=== PATIENT | male | born 1935 | race Caucasian/White ===

== ENCOUNTER 2017-12-01 05:44 | Inpatient (IN) | payer MEDICARE, OTHER ==
[~2017-12-01] VITALS: Ht 165.1 cm; Wt 86.5 kg
[2017-12-01] VITALS (7 sets, daily range): BP systolic 115–139; BP diastolic 57–81; PULSE 96–120; RESP 16–20; TEMP 97.6–98.1; O2SAT 95–97
[~2017-12-01 05:44] MED LIST: LEVO112T2 PO; PNEU13P IM; ZOSTINJ SQ
[2017-12-01] MEDS ORDERED: IOHEXOL 350 MG/ML 10 ML VIAL (for RAD DIAG) IVCONTRAST ONE (05:45)
[2017-12-01] MEDS ORDERED: SODIUM CHLOR 0.9% 1000 ML INJ 1,000 ML IV SCH (06:19)
[2017-12-01] MEDS ORDERED: ONDANSETRON HCL 4 MG/2 ML VIAL IVP ONE (06:30)
[2017-12-01] MEDS ORDERED: SODIUM CHLORIDE 0.9% FLUSH 10 ML FLUSH IV FLUSH PRN (06:30)
--- NOTE | 2017-12-01 06:33 | PD ---
HPI Chief Complaint: Abdominal Pain Time Seen by Provider: 05:56 Travel History International Travel<30 days: No Contact w/Intl Traveler<30days: No Traveled to known affect area: No History of Present Illness HPI 82-year-old male complains of constipation and trouble urinating. Patient states that she started having constipation since yesterday. Patient states that he uses Ex-Lax without much relief at home. Patient states that he had urinary frequency and little urine came out and at a time. Patient has history of BPH. Patient states that he has mild aching pain right upper quadrant abdomen for the past 3 days. Patient's states the patient has been jaundiced for the past 3 days. Patient states that he has nausea but no vomiting or diarrhea. Patient denies any history of gallbladder disease. Patient denies any history of hepatitis. Patient has history of hypothyroidism and kidney stone in the past. Patient status post abdominal hernia repair in the past. PFSH Past Medical History Diminished Hearing: No Kidney Stones: Yes Thyroid Disease: Yes (hypothyriodism) Tetanus Vaccination: < 5 Years Influenza Vaccination: No Past Surgical History Abdominal Surgery: Yes (3 hernia repairs) Social History Alcohol Use: No Tobacco Use: No Substance Use: No Allergies-Medications (Allergen,Severity, Reaction): Coded Allergies: No Known Allergies (Unverified Adverse Reaction, Unknown, 12/01/17) Reported Meds & Prescriptions Reported Meds & Active Scripts Active Levothyroxine (Levothyroxine Sodium) 112 Mcg Tab 112 Mcg PO DAILY Zostavax Inj (Zoster Vaccine Live) 0.65 Ml Inj 0.65 Ml SQ .ONCE Prevnar 13 Inj (Pneumoccal 13-Valent Conj Vacc) 0.5 Ml Inj 0.5 Ml IM .ONCE Review of Systems General / Constitutional: No: Fever Eyes: No: Visual changes HENT: No: Headaches Cardiovascular: No: Chest Pain or Discomfort Respiratory: No: Shortness of Breath Gastrointestinal: Positive: Abdominal Pain (does not go above the that night 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 SKIN: Focused skin assessment warm/dry. Patient is jaundiced HEAD: Normocephalic. EYES: Bilateral scleral icterus. No injection or drainage. NECK: Supple, trachea midline. No JVD or lymphadenopathy. CARDIOVASCULAR: Regular rate and rhythm without murmurs, gallops, or rubs. RESPIRATORY: Breath sounds equal bilaterally. No accessory muscle use. GASTROINTESTINAL: Abdomen soft, nondistended. Patient is mild tenderness on palpation right upper quadrant of the abdomen. No rebound tenderness. No mass MUSCULOSKELETAL: No cyanosis, or edema. BACK: Nontender without obvious deformity. No CVA tenderness. Neurologic exam normal. Data Data Last Documented VS Vital Signs Date Time Temp Pulse Resp B/P (MAP) Pulse Ox O2 Delivery O2 Flow Rate FiO2 12/01/17 05:47 97.6 120 20 135/81 (99) 96 Room Air Orders Orders Complete Blood Count With Diff (12/01/17 06:19) Comprehensive Metabolic Panel (12/01/17 06:19) Lipase (12/01/17 06:19) Prothrombin Time / Inr (Pt) (12/01/17 06:19) Act Partial Throm Time (Ptt) (12/01/17 06:19) Urinalysis - C+S If Indicated (12/01/17 06:19) Ct Abd/Pel W Iv Contrast(Rout) (12/01/17 06:19) Iv Access Insert/Monitor (12/01/17 06:19) Ecg Monitoring (12/01/17 06:19) Oximetry (12/01/17 06:19) Ondansetron Inj (Zofran Inj) (12/01/17 06:30) Sodium Chlor 0.9% 1000 Ml Inj (Ns 1000 M (12/01/17 06:19) Sodium Chloride 0.9% Flush (Ns Flush) (12/01/17 06:30) Electrocardiogram (12/01/17 06:19) MDM Medical Decision Making Medical Screen Exam Complete: Yes Emergency Medical Condition: Yes Differential Diagnosis Differential diagnosis including acute cholecystitis, hepatitis, constipation, urinary retention. Narrative Course 82-year-old male with right upper quadrant abdominal pain, jaundice, constipation, trouble urinating. Toby Figueroa MD Dec 01, 2017 06:33
[2017-12-01 06:42] LABS: AUTOMATED NEUTROPHIL # 14.1 TH/MM3 (1.8-7.7); BASOPHIL # 0.1 TH/MM3 (0-0.2); BASOPHIL % 0.3 % (0.0-2.0); EOSINOPHIL # 0.1 TH/MM3 (0-0.4); EOSINOPHIL % 0.3 % (0.0-4.0); HEMATOCRIT 43.4 % (39.0-51.0); HEMOGLOBIN 14.5 GM/DL (13.0-17.0); LYMPH % 7.9 % (9.0-44.0); LYMPHOCYTE # 1.6 TH/MM3 (1.0-4.8); MEAN CELL VOLUME 88.8 FL (80.0-100.0); MEAN CORPUSCULAR HEMOGLOBIN 29.7 PG (27.0-34.0); MEAN CORPUSCULAR HGB CONC 33.4 % (32.0-36.0); MEAN PLATELET VOLUME 11.2 FL (7.0-11.0); MONO % 20.5 % (0.0-8.0); MONOCYTE # 4.1 TH/MM3 (0-0.9); PLATELET COUNT 131 TH/MM3 (150-450); RED BLOOD COUNT 4.89 MIL/MM3 (4.50-5.90); RED CELL DISTRIBUTION WIDTH 17.5 % (11.6-17.2); WHITE BLOOD COUNT 19.8 TH/MM3 (4.0-11.0)
[2017-12-01 06:54] LABS: PROTHROMBIN TIME - PATIENT 9.7 SEC (9.8-11.6)
[2017-12-01 07:13] LABS: AMORPHOUS SEDIMENT, URINE MANY; BACTERIA, URINE FEW /hpf; BILIRUBIN, URINE MOD (NEG); BLOOD, URINE LARGE (NEG); GLUCOSE,URINE NEG (NEG); KETONE, URINE NEG (NEG); MUCUS URINE MANY /lpf (OCC); NITRITE,URINE NEG (NEG); PH, URINE 5.5 (5.0-8.5); SQUAMOUS EPITHELIAL CELL URINE 1 /hpf (0-5); URINE COLOR DARK-BROWN (YELLW/STRAW); URINE LEUKOCYTE ESTERASE TRACE (NEG); WHITE BLOOD CELL CLUMPS OCC
[2017-12-01 07:15] LABS: ALT (GPT) 77 U/L (12-78); AST (GOT) 59 U/L (15-37); BICARBONATE 28.3 MEQ/L (21.0-32.0); BLOOD UREA NITROGEN 16 MG/DL (7-18); CALCIUM 9.8 MG/DL (8.5-10.1); CHLORIDE 102 MEQ/L (98-107); CREATININE 1.14 MG/DL (0.60-1.30); GLOMERULAR FILTRATION RATE 62 ML/MIN (>89); GLUCOSE,RANDOM 135 MG/DL (74-106); LIPASE 193 U/L (73-393); SODIUM (NA) 136 MEQ/L (136-145)
[2017-12-01 07:18] LABS: ALKALINE PHOSPHATASE 366 U/L (45-117); TOTAL BILIRUBIN ADULT 6.3 MG/DL (0.2-1.0); TOTAL PROTEIN 7.6 GM/DL (6.4-8.2)
[2017-12-01 07:25] LABS: BANDS 2 % (0-6); LYMPHOCYTES 2 % (9-44); MONOCYTES 13 % (0-8); NEUTROPHIL # MANUAL DIFF 16.8 TH/MM3 (1.8-7.7); POLYS (SEG NEUTROPHILS) 83 % (16-70)
--- NOTE | 2017-12-01 09:00 | EKG ---
Date Performed: 12/01/2017 Time Performed: 06:48:01 PTAGE: 82 years EKG: SINUS TACHYCARDIA RIGHT BUNDLE BRANCH BLOCK ABNORMAL ECG NO PREVIOUS TRACING DOCTOR: Feng Castorena Interpretating Date/Time 12/01/2017 08:59:21
--- NOTE | 2017-12-01 09:20 | RADRPT ---
EXAM DATE/TIME: 12/01/2017 08:35 [facility] COMPARISON: No previous studies available for comparison. INDICATIONS : Right upper quadrant abdomen pain. IV CONTRAST: 97 cc Omnipaque 350 (iohexol) IV ORAL CONTRAST: No oral contrast ingested. RADIATION DOSE: 7.44 CTDIvol (mGy) MEDICAL HISTORY : Hypothyroidism. Renal calculi. SURGICAL HISTORY : hernia repair ENCOUNTER: Initial ACUITY: 1 day PAIN SCALE: 2/10 LOCATION: Right upper quadrant TECHNIQUE: Volumetric scanning of the abdomen and pelvis was performed. Using automated exposure control and ad justment of the mA and/or kV according to patient size, radiation dose was kept as low as reasonably achievable to obtain optimal diagnostic quality images. DICOM format image data is available electro nically for review and comparison. FINDINGS: LOWER LUNGS: The visualized lower lungs are clear. LIVER: There is intrahepatic biliary duct dilatation. The common bile duct does not appear dilated. There ar e small calcified gallstone seen in the gallbladder. The gallbladder is not distended. There is low d ensity seen throughout much of the anterior segment of the right lobe of the liver. The vessels are s een to extend through this region. SPLEEN: Normal size without lesion. PANCREAS: Within normal limits. KIDNEYS: Both kidneys and showed normal enhancement. Small cysts are seen bilaterally measuring up to 1.1 cm a nd the right kidney. There is mild dilatation of the right collecting system and right ureter. There is a 1-2 mm stone seen at the right UVJ. ADRENAL GLANDS: Within normal limits. VASCULAR: There is no aortic aneurysm. Arterial calcifications are seen. BOWEL/MESENTERY: The stomach, small bowel, and colon demonstrate no acute abnormality. There is no free intraperitone al air or fluid. ABDOMINAL WALL: Within normal limits. RETROPERITONEUM: There is no lymphadenopathy. BLADDER: No wall thickening or mass. REPRODUCTIVE: Within normal limits. Prostatic calcifications are present. INGUINAL: There is no lymphadenopathy or hernia. MUSCULOSKELETAL: There is degenerative change in the lumbar spine. There is a postoperative stabilization device seen at the spinous processes at the L3-L4 level. CONCLUSION: 1. Intrahepatic biliary duct dilatation without extrahepatic biliary duct dilatation concern for a le carlos at the intrahepatic biliary duct confluence/common hepatic duct level.. A mass is not clearly se en on this CT. 2. Low density seen in the anterior segment of the right lobe of the liver. This could be secondary t o diminished enhancement from diminished hepatic artery supplying this region versus focal fatty infi ltration. 3. 1-2 mm stone at the right UVJ with mild dilatation the right collecting system and right ureter. Landry Zarate MD on December 01, 2017 at 9:10 Board Certified Radiologist. This report was verified electronically.
[2017-12-01] MEDS ORDERED: metroNIDAZOLE 500 MG INJ 100 ML IV ONE (09:45)
[2017-12-01] MEDS ORDERED: PIPERACIL-TAZO 3.375 GM PREMIX 50 ML IV ONE (09:45)
--- NOTE | 2017-12-01 09:56 | PD ---
Physical Exam Narrative GENERAL: SKIN: Warm and dry. JAUNDICE PRESENT HEAD: Atraumatic. Normocephalic. EYES: Pupils equal and round....scleral icterus. No injection or drainage. ENT: No nasal bleeding or discharge. Mucous membranes pink and moist. NECK: Trachea midline. No JVD. CARDIOVASCULAR: Regular rate and rhythm. RESPIRATORY: No accessory muscle use. Clear to auscultation. Breath sounds equal bilaterally. GASTROINTESTINAL: Abdomen soft, RUQ TTP, nondistended. MUSCULOSKELETAL: Extremities without clubbing, cyanosis, or edema. No obvious deformities. NEUROLOGICAL: Awake and alert. No obvious cranial nerve deficits. Motor grossly within normal limits. Five out of 5 muscle strength in the arms and legs. Normal speech. PSYCHIATRIC: Appropriate mood and affect; insight and judgment normal. Data Data Last Documented VS Vital Signs Date Time Temp Pulse Resp B/P (MAP) Pulse Ox O2 Delivery O2 Flow Rate FiO2 12/01/17 09:22 108 18 139/74 (95) 95 Room Air 12/01/17 05:47 97.6 Orders Orders Complete Blood Count With Diff (12/01/17 06:19) Comprehensive Metabolic Panel (12/01/17 06:19) Lipase (12/01/17 06:19) Prothrombin Time / Inr (Pt) (12/01/17 06:19) Act Partial Throm Time (Ptt) (12/01/17 06:19) Urinalysis - C+S If Indicated (12/01/17 06:19) Ct Abd/Pel W Iv Contrast(Rout) (12/01/17 06:19) Iv Access Insert/Monitor (12/01/17 06:19) Ecg Monitoring (12/01/17 06:19) Oximetry (12/01/17 06:19) Ondansetron Inj (Zofran Inj) (12/01/17 06:30) Sodium Chlor 0.9% 1000 Ml Inj (Ns 1000 M (12/01/17 06:19) Sodium Chloride 0.9% Flush (Ns Flush) (12/01/17 06:30) Electrocardiogram (12/01/17 06:19) Urine Culture (12/01/17 06:30) Iohexol 350 Inj (Omnipaque 350 Inj) (12/01/17 05:45) Metronidazole 500 Mg Inj (Flagyl 500 Mg (12/01/17 09:45) Piperacil-Tazo 3.375 Gm Premix (Zosyn 3. (12/01/17 09:45) Labs Laboratory Tests Test 12/01/17 06:30 White Blood Count 19.8 TH/MM3 Red Blood Count 4.89 MIL/MM3 Hemoglobin 14.5 GM/DL Hematocrit 43.4 % Mean Corpuscular Volume 88.8 FL Mean Corpuscular Hemoglobin 29.7 PG Mean Corpuscular Hemoglobin Concent 33.4 % Red Cell Distribution Width 17.5 % Platelet Count 131 TH/MM3 Mean Platelet Volume 11.2 FL Neutrophils (%) (Auto) 71.0 % Lymphocytes (%) (Auto) 7.9 % Monocytes (%) (Auto) 20.5 % Eosinophils (%) (Auto) 0.3 % Basophils (%) (Auto) 0.3 % Neutrophils # (Auto) 14.1 TH/MM3 Lymphocytes # (Auto) 1.6 TH/MM3 Monocytes # (Auto) 4.1 TH/MM3 Eosinophils # (Auto) 0.1 TH/MM3 Basophils # (Auto) 0.1 TH/MM3 CBC Comment AUTO DIFF Differential Total Cells Counted 100 Neutrophils % (Manual) 83 % Band Neutrophils % 2 % Lymphocytes % 2 % Monocytes % 13 % Neutrophils # (Manual) 16.8 TH/MM3 Differential Comment FINAL DIFF MANUAL Platelet Estimate LOW Platelet Morphology Comment NORMAL Red Cell Morphology Comment NORMAL Prothrombin Time 9.7 SEC Prothromb Time International Ratio 1.0 RATIO Activated Partial Thromboplast Time 25.2 SEC Urine Color DARK-BROWN Urine Turbidity CLOUDY Urine pH 5.5 Urine Specific [place] 1.022 Urine Protein 30 mg/dL Urine Glucose (UA) NEG mg/dL Urine Ketones NEG mg/dL Urine Occult Blood LARGE Urine Nitrite NEG Urine Bilirubin MOD Urine Urobilinogen 2.0 MG/DL Urine Leukocyte Esterase TRACE Urine RBC /hpf Urine WBC 45 /hpf Urine WBC Clumps OCC Urine Squamous Epithelial Cells 1 /hpf Urine Amorphous Sediment MANY Urine Bacteria FEW /hpf Urine Granular Casts 9 /lpf Urine Mucus MANY /lpf Urine Yeast (Budding) RARE Microscopic Urinalysis Comment CULTURE INDICATED Blood Urea Nitrogen 16 MG/DL Creatinine 1.14 MG/DL Random Glucose 135 MG/DL Total Protein 7.6 GM/DL Albumin 3.0 GM/DL Calcium Level 9.8 MG/DL Alkaline Phosphatase 366 U/L Aspartate Amino Transf (AST/SGOT) 59 U/L Alanine Aminotransferase (ALT/SGPT) 77 U/L Total Bilirubin 6.3 MG/DL Sodium Level 136 MEQ/L Potassium Level 3.4 MEQ/L Chloride Level 102 MEQ/L Carbon Dioxide Level 28.3 MEQ/L Anion Gap 6 MEQ/L Estimat Glomerular Filtration Rate 62 ML/MIN Lipase 193 U/L MDM Medical Record Reviewed: Yes Supervised Visit with MEGAN: No Diagnosis Primary Impression: BILIARY OBSTRUCTION (STONE V MASS) Admitting Information Admitting Physician Requests: Observation Patrick Love MD Dec 01, 2017 09:56
[2017-12-01] MEDS ORDERED: PRED5TAB PO (10:28)
[2017-12-01] MEDS ORDERED: OMEP20TA93 PO (10:28)
[2017-12-01] MEDS ORDERED: FINA5TAB2 PO (10:28)
[2017-12-01] MEDS ORDERED: SENNOSIDES 8.6 MG TAB PO PRN (11:00)
[2017-12-01] MEDS ORDERED: POTASSIUM CHLORIDE 25 MEQ EFFERVESCENT TAB PO ONE (11:00)
[2017-12-01] MEDS ORDERED: ACETAMINOPHEN/HYDROcodone 325 MG/5 MG TAB PO PRN (11:00)
[2017-12-01] MEDS ORDERED: BISACODYL 10 MG SUPP RECTAL PRN (11:00)
[2017-12-01] MEDS ORDERED: PANTOPRAZOLE SOD 20 MG DELAYED RELEASE TAB PO PRN (11:00)
[2017-12-01] MEDS ORDERED: LACTULOSE SYRUP 20 GM/30 ML CUP PO PRN (11:00)
[2017-12-01] MEDS ORDERED: NALOXONE HCL 0.4 MG/ML AMP IV PUSH PRN (11:00)
--- NOTE | 2017-12-01 11:03 | HHI.HP ---
[facility] Service Family Medicine Primary Care Physician Non-Staff Admission Diagnosis BILIARY OBSTRUCTION (MASS V STONE) Diagnoses: International Travel<30 Days: No Contact w/Intl Traveler<30days: No Known Affected Area: No History of Present Illness 82-year-old male with past medical history of BPH, hyperlipidemia, polymyalgia rheumatica presenting with a one-day history of sharp, constant right upper quadrant abdominal pain. No fevers or chills, nausea or vomiting. Pain became progressively worse overnight, and at 5 AM was at a point that his urged him to seek medical care. and patient also endorses a mild jaundice is been present for the last couple days. Of note, he has also been a little bit constipated with his last bowel movement being over a day ago which is unusual for him. He had to strain to have his last bowel movement which causes a little bit of blood on the tissue (this is not a problem for him) this is. His last colonoscopy was in 2016 which showed a few benign polyps; he was told to repeat in 5 years. (Vincent Quezada MD) Review of Systems Constitutional: DENIES: Fever, Chills Endocrine: DENIES: Polyuria Eyes: DENIES: Blurred vision Ears, nose, mouth, throat: DENIES: Throat pain, Ear Pain Respiratory: DENIES: Cough, Wheezing, Shortness of breath Cardiovascular: DENIES: Chest pain, Palpitations Gastrointestinal: COMPLAINS OF: Abdominal pain, Constipation, DENIES: Black stools, Bloody stools, Diarrhea, Nausea, Vomiting Musculoskeletal: COMPLAINS OF: Joint pain, Muscle aches, Stiffness, DENIES: Joint Swelling Integumentary: COMPLAINS OF: Pruritus, DENIES: Rash Hematologic/lymphatic: DENIES: Bruising Immunologic/allergic: DENIES: Eczema Neurologic: DENIES: Abnormal gait, Headache Psychiatric: DENIES: Anxiety, Depression (Vincent Quezada MD) Past Family Social History Past Medical History BPH Polymyalgia Rheumatica Hyperlipidemia Past Surgical History Neck surgery 2016 - cervical fusion (?) Back surgery 2009 - laminectomy with fusion (?) Reported Medications Reported Meds & Active Scripts Active Levothyroxine (Levothyroxine Sodium) 112 Mcg Tab 112 Mcg PO DAILY Reported Finasteride 5 Mg Tab 5 Mg PO DAILY Do not crush. Omeprazole 20 Mg Tab 20 Mg PO DAILY PRN Prednisone 5 Mg Tab 5 Mg PO DAILY (Vincent Quezada MD) Allergies: Coded Allergies: No Known Allergies (Unverified Allergy, Unknown, 12/01/17) Active Ordered Medications Current Medications Medications (Trade) Dose Ordered Sig/Rafa Route Start Time Stop Time Status Last Admin Sodium Chloride 1,000 ml @ 125 mls/hr Q8H IV 12/01/17 06:19 12/01/17 14:18 12/01/17 06:43 (NS Flush) 2 ml UNSCH PRN IV FLUSH 12/01/17 11:00 (NS Flush) 2 ml BID IV FLUSH 12/01/17 21:00 (Zofran Inj) 4 mg Q6H PRN IVP 12/01/17 11:00 (Ambien) 5 mg HS PRN PO 12/01/17 21:00 (Lovenox Inj) 40 mg Q24H SQ 12/01/17 12:00 (Brooten 5-325 Mg) 1 tab Q4H PRN PO 12/01/17 11:00 (Brooten 10-325 Mg) 1 tab Q4H PRN PO 12/01/17 11:00 (Narcan Inj) 0.4 mg UNSCH PRN IV PUSH 12/01/17 11:00 (Deedee-Colace) 1 tab BID PO 12/01/17 21:00 (Milk Of Magnesia Liq) 30 ml Q12H PRN PO 12/01/17 11:00 (Senokot) 17.2 mg Q12H PRN PO 12/01/17 11:00 (Dulcolax Supp) 10 mg DAILY PRN RECTAL 12/01/17 11:00 (Lactulose Liq) 30 ml DAILY PRN PO 12/01/17 11:00 (Proscar) 5 mg DAILY PO 12/02/17 09:00 (Synthroid) 112 mcg DAILY@0600 PO 12/02/17 06:00 (Deltasone) 5 mg DAILY PO 12/02/17 09:00 (Protonix) 20 mg DAILY PRN PO 12/01/17 11:00 Piperacillin Sod/ Tazobactam Sod 50 ml @ 100 mls/hr Q6H IV 12/01/17 16:00 Family History Father - due to old age Mother - due to colon cancer, age > 65 Brothers - 4 , 1 living Sisters - 2 , 1 living Several family members with h/o colon polyps and colon cancer No family h/o ovarian, breast, uterine cancer Social History Tobacco: quit 1985. 2 PPD x 60 years (off and on). Approx 50 PY. 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 Cool and dry. Mild jaundice of skin from face to upper chest. HEAD: NC/AT EYES: PERRL. EOMI. No conjunctival injection or drainage. No scleral icterus. ENT: MMM, OP without erythema, tonsillar swelling, or exudate. NECK: Supple, no lymphadenopathy. No JVD. CARDIOVASCULAR: NRRR. Normal S1/S2. No MRG RESPIRATORY: CTAB. No crackles or wheezes. GASTROINTESTINAL: Abdomen soft, obese, moderately tender to palpation at RUQ, mildly tender at RLQ. Dullness to percussion of RUQ and LLQ. No hepato- splenomegaly or palpable masses appreciated. Negative obturator/psoas sign. MUSCULOSKELETAL: Extremities without clubbing, cyanosis, or edema. NEUROLOGICAL: Awake and alert. Cranial nerves II through XII grossly intact. Moves all extremities without difficulty. Normal speech. Laboratory Laboratory Tests Test 12/01/17 06:30 White Blood Count 19.8 Red Blood Count 4.89 Hemoglobin 14.5 Hematocrit 43.4 Mean Corpuscular Volume 88.8 Mean Corpuscular Hemoglobin 29.7 Mean Corpuscular Hemoglobin Concent 33.4 Red Cell Distribution Width 17.5 Platelet Count 131 Mean Platelet Volume 11.2 Neutrophils (%) (Auto) 71.0 Lymphocytes (%) (Auto) 7.9 Monocytes (%) (Auto) 20.5 Eosinophils (%) (Auto) 0.3 Basophils (%) (Auto) 0.3 Neutrophils # (Auto) 14.1 Lymphocytes # (Auto) 1.6 Monocytes # (Auto) 4.1 Eosinophils # (Auto) 0.1 Basophils # (Auto) 0.1 CBC Comment AUTO DIFF Differential Total Cells Counted 100 Neutrophils % (Manual) 83 Band Neutrophils % 2 Lymphocytes % 2 Monocytes % 13 Neutrophils # (Manual) 16.8 Differential Comment FINAL DIFF MANUAL Platelet Estimate LOW Platelet Morphology Comment NORMAL Red Cell Morphology Comment NORMAL Prothrombin Time 9.7 Prothromb Time International Ratio 1.0 Activated Partial Thromboplast Time 25.2 Urine Color DARK-BROWN Urine Turbidity CLOUDY Urine pH 5.5 Urine Specific [place] 1.022 Urine Protein 30 Urine Glucose (UA) NEG Urine Ketones NEG Urine Occult Blood LARGE Urine Nitrite NEG Urine Bilirubin MOD Urine Urobilinogen 2.0 Urine Leukocyte Esterase TRACE Urine RBC Urine WBC 45 Urine WBC Clumps OCC Urine Squamous Epithelial Cells 1 Urine Amorphous Sediment MANY Urine Bacteria FEW Urine Granular Casts 9 Urine Mucus MANY Urine Yeast (Budding) RARE Microscopic Urinalysis Comment CULTURE INDICATED Blood Urea Nitrogen 16 Creatinine 1.14 Random Glucose 135 Total Protein 7.6 Albumin 3.0 Calcium Level 9.8 Alkaline Phosphatase 366 Aspartate Amino Transf (AST/SGOT) 59 Alanine Aminotransferase (ALT/SGPT) 77 Total Bilirubin 6.3 Sodium Level 136 Potassium Level 3.4 Chloride Level 102 Carbon Dioxide Level 28.3 Anion Gap 6 Estimat Glomerular Filtration Rate 62 Lipase 193 Date/Time Source Procedure Growth Status 12/01/17 06:30 Urine Clean Catch Urine Culture Pending Received (Vincent Quezada MD) Result Diagram: 12/01/1762912/01/17 06 Imaging Last Impressions Abdomen/Pelvis CT 12/01/17618 Signed Impressions: Service Date/Time: Friday, December 01, 2017 08:35 - CONCLUSION: 1. Intrahepatic biliary duct dilatation without extrahepatic biliary duct dilatation concern for a lesion at the intrahepatic biliary duct confluence/common hepatic duct level.. A mass is not clearly seen on this CT. 2. Low density seen in the anterior segment of the right lobe of the liver. This could be secondary to diminished enhancement from diminished hepatic artery supplying this region versus focal fatty infiltration. 3. 1-2 mm stone at the right UVJ with mild dilatation the right collecting system and right ureter. Landry Zarate MD (Vincent Quezada MD) Caprini VTE Risk Assessment Caprini VTE Risk Assessment: Mod/High Risk (score >= 2) (Vincent Quezada MD) Assessment and Plan Assessment and Plan 82 yo male with h/o PMR, BPH, hyperlipidemia presenting with: (Vincent Quezada MD) Attending Attestation Patient seen and examined. Case reviewed and discussed with the resident team. Agree with plan of care as discussed with me and documented in the resident note. pt seen on admission in the ED. feels well, talkative and in no pain (La Wood MD) Problem List: (1) Sepsis ICD Codes: A41.9 - Sepsis, unspecified organism Plan: Initially meeting sepsis criteria due to leukocytosis + tachycardia, abdominal vs urinary source - See plans below (2) Abdominal pain ICD Codes: R10.9 - Unspecified abdominal pain Status: Acute Plan: Sudden onset abdominal pain worst in RUQ CT findings as above Significant leukocytosis UA with hematuria, many WBC Differential including malignancy, choledocholithiasis, cholecystitis, kidney stone, UTI - Place in observation - Consult GI; may need ERCP to better evaluate presence of abdominal mass (CT findings classic though no mass visualized) - Abdominal US complete - Zosyn 3.375 Q6H IV for to cover UTI, abdominal pathogens - Brooten PRN for pain control - Diet regular basic as tolerated (3) Urinary tract infection in male ICD Codes: N39.0 - Urinary tract infection, site not specified Status: Acute Plan: Has h/o UTIs in past ?complication with renal stone, very small (1-2 mm) - Strain urine to look for stone - Await UCx - Coverage with Zosyn as above (4) Polymyalgia rheumatica ICD Codes: M35.3 - Polymyalgia rheumatica Status: Chronic Plan: Pain stable, continue home prednisone (5) BPH (benign prostatic hyperplasia) ICD Codes: N40.0 - Benign prostatic hyperplasia without lower urinary tract symptoms Status: Chronic Plan: Symptoms currently well controlled, continue home finasteride (6) Hypothyroidism ICD Codes: E03.9 - Hypothyroidism, unspecified Status: Chronic Plan: Continue home Synthroid (7) FEN/PPX Plan: Fluids: PO only for now Electrolytes: Monitor and replace PRN Nutrition: Diet regular basic as tolerated DVT: Lovenox 40 mg SQ daily GI: Home PPI PRN for heartburn Dispo: Place in observation; may meet inpatient criteria [place] Dr. Lassiter [facility] Dr. Wood (Vincent Quezada MD) Problem Qualifiers (1) Sepsis: Qualified Codes: A41.9 - Sepsis, unspecified organism (2) Abdominal pain: Qualified Codes: R10.11 - Right upper quadrant pain (3) BPH (benign prostatic hyperplasia): Qualified Codes: N40.0 - Benign prostatic hyperplasia without lower urinary tract symptoms (4) Hypothyroidism: Qualified Codes: E03.9 - Hypothyroidism, unspecified Vincent Quezada MD Dec 01, 2017 11:03 La Wood MD Dec 02, 2017 15:28
--- NOTE | 2017-12-01 13:03 | RADRPT ---
EXAM DATE/TIME: 12/01/2017 11:49 [facility] COMPARISON: CT ABDOMEN & PELVIS W CONTRAST, December 01, 2017, 8:35. INDICATIONS : Right upper quadrant pain. MEDICAL HISTORY : Hypothyroidism. Renal calculi. SURGICAL HISTORY : Hernia repair. Left hand/finger surgery. Back surgery. ENCOUNTER: Initial ACUITY: 1 day PAIN SCORE: 10 LOCATION: Bilateral upper quadrant MEASUREMENTS: LIVER: 13.9 cm length COMMON DUCT: Non-visualized RIGHT KIDNEY: 11.6 x 5.7 x 6.1 cm LEFT KIDNEY: 10.9 x 5.2 x 5.4 cm SPLEEN: 10.4 cm length AORTA: 2.1cm maximal FINDINGS: LIVER: There is a 9.3 x 6.8 x 7.3 cm echogenic area seen in the anterior segment of the right lobe of the li femi likely related to areas of focal fatty infiltration. The vessels are not displaced in this region . There is intrahepatic biliary duct dilatation seen. COMMON DUCT: The common bile duct is not visualized. GALLBLADDER: The gallbladder is not distended. There are small gallstones present. PANCREAS: The pancreas is obscured by bowel gas. RIGHT KIDNEY: No hydronephrosis, stone or mass. LEFT KIDNEY: No hydronephrosis, stone or mass. SPLEEN: No focal lesion. AORTA: Non aneurysmal. IVC: Within normal limits. CONCLUSION: 1. Intrahepatic biliary duct dilatation better seen on the CT examination. A lesion at the biliary du ct confluence/common hepatic duct region still needs to be suspected. An ERCP or MRCP could be used t o further evaluate this region. 2. Suspected area of focal hepatic steatosis at the anterior segment right lobe of the liver. 3. Gallstones Landry Zarate MD on December 01, 2017 at 12:57 Board Certified Radiologist. This report was verified electronically.
--- NOTE | 2017-12-01 13:18 | PD.CONS ---
HPI History of Present Illness This is a 82 year old male with past medical history of BPH, hyperlipidemia, polymyalgia rheumatica presenting with a one-day history of sharp, constant right upper quadrant abdominal pain. No fevers or chills, nausea or vomiting. Pain became progressively worse overnight, couldn't get any rest and that prompted the ED visit. and patient also endorses a mild jaundice is been present for the last couple days. Endorses recent onset of constipation which is unusual for him. His last colonoscopy was in 2015 which showed a few benign polyps; he was told to repeat in 5 years, this was done in [place], pt doesn't have local GI dr. Endorses hematuria. LFTs total bili 6.3, AST/ALT 59/77, ALP 366, lipase wnl, CBC with elevated WBC. Ct done showed intrahepatic biliary duct dilatation without extrahepatic biliary du t dilatation concern for a lesion at the intrahepatic biliary duct or CBD level, low density seen n the anterior segment of the right lobe fo the liver, could be secondary to diminished enhancement. Pt denies previous hx of this, denies alcohol intake. US pending (Malik Keen) PFSH Past Medical History BPH Polymyalgia Rheumatica Hyperlipidemia Past Surgical History Neck surgery 2016 - cervical fusion (?) Back surgery 2009 - laminectomy with fusion (?) (Malik Keen) Coded Allergies: No Known Allergies (Unverified Allergy, Unknown, 12/01/17) Medications Current Medications Medications (Trade) Dose Ordered Sig/Rafa Route Start Time Stop Time Status Last Admin Sodium Chloride 1,000 ml @ 125 mls/hr Q8H IV 12/01/17 06:19 12/01/17 14:18 12/01/17 06:43 (NS Flush) 2 ml UNSCH PRN IV FLUSH 12/01/17 11:00 (NS Flush) 2 ml BID IV FLUSH 12/01/17 21:00 (Zofran Inj) 4 mg Q6H PRN IVP 12/01/17 11:00 (Ambien) 5 mg HS PRN PO 12/01/17 21:00 (Lovenox Inj) 40 mg Q24H SQ 12/01/17 12:00 ([place] 5-325 Mg) 1 tab Q4H PRN PO 12/01/17 11:00 ([place] 10-325 Mg) 1 tab Q4H PRN PO 12/01/17 11:00 (Narcan Inj) 0.4 mg UNSCH PRN IV PUSH 12/01/17 11:00 (Deedee-Colace) 1 tab BID PO 12/01/17 21:00 (Milk Of Magnesia Liq) 30 ml Q12H PRN PO 12/01/17 11:00 (Senokot) 17.2 mg Q12H PRN PO 12/01/17 11:00 (Dulcolax Supp) 10 mg DAILY PRN RECTAL 12/01/17 11:00 (Lactulose Liq) 30 ml DAILY PRN PO 12/01/17 11:00 (Proscar) 5 mg DAILY PO 12/02/17 09:00 (Synthroid) 112 mcg DAILY@0600 PO 12/02/17 06:00 (Deltasone) 5 mg DAILY PO 12/02/17 09:00 (Protonix) 20 mg DAILY PRN PO 12/01/17 11:00 Piperacillin Sod/ Tazobactam Sod 50 ml @ 100 mls/hr Q6H IV 12/01/17 16:00 Family History Father - due to old age Mother - due to colon cancer, age > 65 Brothers - 4 , 1 living Sisters - 2 , 1 living Several family members with h/o colon polyps and colon cancer Social History former smoker No alcohol intake, hx of heavy drinking 10 yrs ago no illicit drug use (Malik Keen) Review of Systems Constitutional: DENIES: Change in appetite Endocrine: DENIES: Polyuria Eyes: DENIES: Double Vision Ears, nose, mouth, throat: DENIES: Hoarseness Respiratory: DENIES: Shortness of breath Cardiovascular: DENIES: Lower Extremity Edema Gastrointestinal: COMPLAINS OF: Abdominal pain, Constipation, DENIES: Black stools, Bloody stools, Diarrhea, Nausea, Vomiting, Difficulty Swallowing, Anorexia, Odynophagia, Swelling of Abdomen, Heartburn, Hematemesis Genitourinary: COMPLAINS OF: Hematuria Musculoskeletal: DENIES: Back pain Integumentary: COMPLAINS OF: Jaundice Hematologic/lymphatic: DENIES: Bruising Immunologic/allergic: DENIES: Eczema Neurologic: DENIES: Abnormal gait Psychiatric: DENIES: Anxiety (Malik Keen) GI Exam Vitals I&O Vital Signs Date Time Temp Pulse Resp B/P (MAP) Pulse Ox O2 Delivery O2 Flow Rate FiO2 12/01/17 09:22 108 18 139/74 (95) 95 Room Air 12/01/17 06:41 18 96 12/01/17 05:47 97.6 120 20 135/81 (99) 96 Room Air Imaging Last Impressions Abdomen/Pelvis CT 12/01/17 0619 Signed Impressions: Service Date/Time: Friday, December 01, 2017 08:35 - CONCLUSION: 1. Intrahepatic biliary duct dilatation without extrahepatic biliary duct dilatation concern for a lesion at the intrahepatic biliary duct confluence/common hepatic duct level.. A mass is not clearly seen on this CT. 2. Low density seen in the anterior segment of the right lobe of the liver. This could be secondary to diminished enhancement from diminished hepatic artery supplying this region versus focal fatty infiltration. 3. 1-2 mm stone at the right UVJ with mild dilatation the right collecting system and right ureter. Landry Zarate MD Laboratory Test 12/01/17 06:30 White Blood Count 19.8 TH/MM3 Red Blood Count 4.89 MIL/MM3 Hemoglobin 14.5 GM/DL Hematocrit 43.4 % Mean Corpuscular Volume 88.8 FL Mean Corpuscular Hemoglobin 29.7 PG Mean Corpuscular Hemoglobin Concent 33.4 % Red Cell Distribution Width 17.5 % Platelet Count 131 TH/MM3 Mean Platelet Volume 11.2 FL Neutrophils (%) (Auto) 71.0 % Lymphocytes (%) (Auto) 7.9 % Monocytes (%) (Auto) 20.5 % Eosinophils (%) (Auto) 0.3 % Basophils (%) (Auto) 0.3 % Neutrophils # (Auto) 14.1 TH/MM3 Lymphocytes # (Auto) 1.6 TH/MM3 Monocytes # (Auto) 4.1 TH/MM3 Eosinophils # (Auto) 0.1 TH/MM3 Basophils # (Auto) 0.1 TH/MM3 CBC Comment AUTO DIFF Differential Total Cells Counted 100 Neutrophils % (Manual) 83 % Band Neutrophils % 2 % Lymphocytes % 2 % Monocytes % 13 % Neutrophils # (Manual) 16.8 TH/MM3 Differential Comment FINAL DIFF MANUAL Platelet Estimate LOW Platelet Morphology Comment NORMAL Red Cell Morphology Comment NORMAL Prothrombin Time 9.7 SEC Prothromb Time International Ratio 1.0 RATIO Activated Partial Thromboplast Time 25.2 SEC Urine Color DARK-BROWN Urine Turbidity CLOUDY Urine pH 5.5 Urine Specific [place] 1.022 Urine Protein 30 mg/dL Urine Glucose (UA) NEG mg/dL Urine Ketones NEG mg/dL Urine Occult Blood LARGE Urine Nitrite NEG Urine Bilirubin MOD Urine Urobilinogen 2.0 MG/DL Urine Leukocyte Esterase TRACE Urine RBC /hpf Urine WBC 45 /hpf Urine WBC Clumps OCC Urine Squamous Epithelial Cells 1 /hpf Urine Amorphous Sediment MANY Urine Bacteria FEW /hpf Urine Granular Casts 9 /lpf Urine Mucus MANY /lpf Urine Yeast (Budding) RARE Microscopic Urinalysis Comment CULTURE INDICATED Blood Urea Nitrogen 16 MG/DL Creatinine 1.14 MG/DL Random Glucose 135 MG/DL Total Protein 7.6 GM/DL Albumin 3.0 GM/DL Calcium Level 9.8 MG/DL Alkaline Phosphatase 366 U/L Aspartate Amino Transf (AST/SGOT) 59 U/L Alanine Aminotransferase (ALT/SGPT) 77 U/L Total Bilirubin 6.3 MG/DL Sodium Level 136 MEQ/L Potassium Level 3.4 MEQ/L Chloride Level 102 MEQ/L Carbon Dioxide Level 28.3 MEQ/L Anion Gap 6 MEQ/L Estimat Glomerular Filtration Rate 62 ML/MIN Lipase 193 U/L Date/Time Source Procedure Growth Status 12/01/17 06:30 Urine Clean Catch Urine Culture Pending Received Physical Examination HEENT: normocephalic; atraumatic; + jaundice. NECK: Neck is supple, no JVD, no lymphadenopathy. CHEST: Chest is clear to auscultation and percussion. CARDIAC: Regular rate and rhythm with no murmur gallop or rubs. ABDOMEN: Soft, nondistended,obese, right sided tenderness; bowel sounds are present in all four quadrants. EXTREMITIES: No clubbing, cyanosis, or edema. SKIN: Normal; no rash; + jaundice. HEDDLER TIER: No focal deficits; alert and oriented times three. (Malik Keen) Assessment and Plan Plan - One-day history of sharp, constant right upper quadrant abdominal pain LFTs total bili 6.3, AST/ALT 59/77, ALP 366, lipase wnl, CBC with elevated WBC. Ct done showed intrahepatic biliary duct dilatation without extrahepatic biliary duct dilatation concern for a lesion at the intrahepatic biliary duct or CBD level , low density seen in the anterior segment of the right lobe fo the liver, could be secondary to diminished enhancement. Pt denies previous hx of this, denies alcohol intake. US pending - Leukocytosis- secondary to above, on abx, afebrile - Recent onset of constipation which is unusual for him. His last colonoscopy was in 2015 which showed a few benign polyps; he was told to repeat in 5 years, this was done in [place], pt doesn't have local GI dr. - Hematuria- per attending Plan: - Regular diet - Await US - MRCP - Possible ERCP in the am pending results above - Obtain consents - NPOmn - Monitor labs - AFP, CEA, CA 19-9 - Cont. abx - Supportive care - Patient seen and examined by Dr. Hauser and myself and this note is written on his behalf. (Malik Keen) Physician Comments Will check MRCP and plan accordingly. (Tyrone Hauser MD) Malik Keen Dec 01, 2017 13:18 Tyrone Hauser MD Dec 01, 2017 20:44
[2017-12-01] MEDS: ENOXAPARIN SODIUM 40 MG/0.4 ML SYRINGE SQ SCH (14:57)
[2017-12-01] MEDS: PIPERACIL-TAZO 3.375 GM PREMIX 50 ML IV SCH ×2 (14:57→22:14)
[2017-12-01] MEDS ORDERED: ZOLPIDEM TARTRATE 5 MG TAB PO PRN (21:00)
[2017-12-01] MEDS: DOCUSATE SODIUM 50 MG/SENNA 8.6 MG TAB PO SCH (22:14)
[2017-12-01] MEDS: SODIUM CHLORIDE 0.9% FLUSH 10 ML FLUSH IV FLUSH SCH (22:14)
[2017-12-02] MEDS: PIPERACIL-TAZO 3.375 GM PREMIX 50 ML IV SCH ×4 (04:08→21:15)
[2017-12-02 04:42] VITALS: BP 121/57; PULSE 97; RESP 18; TEMP 98.1; O2SAT 94
[2017-12-02] MEDS: LEVOTHYROXINE SODIUM 112 MCG TAB PO SCH (06:00)
[2017-12-02 07:48] VITALS: BP 125/65; PULSE 90; RESP 24; TEMP 98; O2SAT 96
[2017-12-02 08:27] LABS: AUTOMATED NEUTROPHIL # 6.6 TH/MM3 (1.8-7.7); BASOPHIL % 0.4 % (0.0-2.0); EOSINOPHIL # 0.1 TH/MM3 (0-0.4); EOSINOPHIL % 1.1 % (0.0-4.0); HEMATOCRIT 37.6 % (39.0-51.0); HEMOGLOBIN 12.9 GM/DL (13.0-17.0); LYMPH % 18.3 % (9.0-44.0); LYMPHOCYTE # 2.1 TH/MM3 (1.0-4.8); MEAN CELL VOLUME 88.2 FL (80.0-100.0); MEAN CORPUSCULAR HEMOGLOBIN 30.3 PG (27.0-34.0); MEAN CORPUSCULAR HGB CONC 34.4 % (32.0-36.0); MEAN PLATELET VOLUME 11.8 FL (7.0-11.0); MONO % 22.7 % (0.0-8.0); MONOCYTE # 2.6 TH/MM3 (0-0.9); NEUT % 57.5 % (16.0-70.0); PLATELET COUNT 106 TH/MM3 (150-450); RED BLOOD COUNT 4.27 MIL/MM3 (4.50-5.90); RED CELL DISTRIBUTION WIDTH 17.3 % (11.6-17.2); WHITE BLOOD COUNT 11.6 TH/MM3 (4.0-11.0)
[2017-12-02] MEDS ORDERED: GADODIAMIDE PF 287 MG/ML 20 ML VIAL (for RAD MRI) IVCONTRAST ONE (08:35)
[2017-12-02 08:55] LABS: TOTAL BILIRUBIN ADULT 6.7 MG/DL (0.2-1.0); TOTAL PROTEIN 6.3 GM/DL (6.4-8.2)
[2017-12-02 08:56] LABS: ALBUMIN 2.5 GM/DL (3.4-5.0); BICARBONATE 27.9 MEQ/L (21.0-32.0); CALCIUM 9.7 MG/DL (8.5-10.1); CREATININE 0.85 MG/DL (0.60-1.30); DIRECT BILIRUBIN ADULT 5.5 MG/DL (0.0-0.2); INDIRECT BILIRUBIN 1.2 MG/DL (0.0-0.8)
[2017-12-02] MEDS: predniSONE 5 MG TAB PO SCH (09:00)
[2017-12-02] MEDS: DOCUSATE SODIUM 50 MG/SENNA 8.6 MG TAB PO SCH ×2 (09:00→21:00)
[2017-12-02] MEDS: FINASTERIDE 5 MG TAB PO SCH (09:00)
[2017-12-02] MEDS: SODIUM CHLORIDE 0.9% FLUSH 10 ML FLUSH IV FLUSH SCH ×2 (09:06→21:14)
[2017-12-02 09:10] LABS: BANDS 2 % (0-6); LYMPHOCYTES 10 % (9-44); MONOCYTES 20 % (0-8); NEUTROPHIL # MANUAL DIFF 8.1 TH/MM3 (1.8-7.7); POLYS (SEG NEUTROPHILS) 68 % (16-70)
[2017-12-02 09:11] LABS: STOMATOCYTES 2+ (NORMAL)
--- NOTE | 2017-12-02 09:22 | RADRPT ---
EXAM DATE/TIME: 12/02/2017 08:17 [facility] COMPARISON: CT ABDOMEN & PELVIS W CONTRAST, December 01, 2017, 8:35. INDICATIONS : Mass. Right upper abdominal pain. CONTRAST: 16 cc Omniscan (gadodiamide) IV MEDICAL HISTORY : None. SURGICAL HISTORY : Fusion, lumbar. Inguinal hernia repair. ENCOUNTER: Initial ACUITY: 2 day PAIN SCORE: 3/10 LOCATION: Abdomen TECHNIQUE: Multiplanar, multisequence magnetic resonance imaging of the abdomen was performed. High-resolution 3D dataset was utilized to reconstruct maximum-intensity projection (MIP) images. FINDINGS: There is an area of focal fat wedge-shaped in appearance and the right hepatic lobe laterally wi th maximum transverse diameter of 5.2 cm. This corresponds to the area of diminished attenuation on t he patient's CT examination. There are tiny cysts in the kidneys and there are gallstones in the gall bladder as well. There is significant dilatation of the intrahepatic ducts including the left and rig ht hepatic ducts with maximum diameter of 7-8 mm. The common bile duct measures 3 mm and is nondilate d and the hepatic ducts dilatation extends to the hepatic confluence without demonstrable mass. The p ancreatic duct is also normal size. No definite pancreatic mass is identified. The adrenals are unrem arkable. Spleen is intact. CONCLUSION: 1. Significant dilatation of the intrahepatic ducts ending at the confluence and possibility of stric ture at this site or a Klatskin's tumor which is not visualized should be entertained. 2. Wedge-shaped focal fat right hepatic lobe. Luz Jean MD on December 02, 2017 at 8:59 Board Certified Radiologist. This report was verified electronically.
[2017-12-02] MEDS: ENOXAPARIN SODIUM 40 MG/0.4 ML SYRINGE SQ SCH (12:00)
[2017-12-02 12:31] VITALS: BP 127/70; PULSE 93; RESP 22; TEMP 98.1; O2SAT 95
[2017-12-02 15:25] VITALS: BP 128/66; PULSE 100; RESP 18; TEMP 97.5; O2SAT 95
--- NOTE | 2017-12-02 15:27 | HHI.HP ---
[facility] Service Family Medicine Primary Care Physician Non-Staff Admission Diagnosis BILIARY OBSTRUCTION (MASS V STONE) Diagnoses: (1) Sepsis Diagnosis: Principal (2) Abdominal pain Diagnosis: Principal (3) Urinary tract infection in male Diagnosis: Principal (4) Polymyalgia rheumatica Diagnosis: Principal (5) BPH (benign prostatic hyperplasia) Diagnosis: Principal (6) Hypothyroidism Diagnosis: Principal (7) FEN/PPX Diagnosis: Principal International Travel<30 Days: No Contact w/Intl Traveler<30days: No Known Affected Area: No History of Present Illness Mr Rios is an 82-year-old male with past medical history of BPH, hyperlipidemia , polymyalgia rheumatica presenting with a one-day history of sharp, constant right upper quadrant abdominal pain. No fevers or chills, nausea or vomiting. Pain became progressively worse overnight, and at 5 AM the day of admission was at a point that his urged him to seek medical care. and patient also endorses a mild jaundice is been present for the last couple days. Of note, he has also been a little bit constipated with his last bowel movement being over a day ago which was unusual for him. He had to strain to have his last bowel movement which causes a little bit of blood on the tissue (this is not a problem for him) this is. His last colonoscopy was in 2016 which showed a few benign polyps; he was told to repeat in 5 years. this am he denies any pain and is NPO waiting for his ERCP. He is up ambulating and feels well Review of Systems Other Constitutional: DENIES: Fever, Chills Endocrine: DENIES: Polyuria Eyes: DENIES: Blurred vision Ears, nose, mouth, throat: DENIES: Throat pain, Ear Pain Respiratory: DENIES: Cough, Wheezing, Shortness of breath Cardiovascular: DENIES: Chest pain, Palpitations Gastrointestinal: COMPLAINS OF: Abdominal pain, Constipation, DENIES: Black stools, Bloody stools, Diarrhea, Nausea, Vomiting Musculoskeletal: COMPLAINS OF: Joint pain, Muscle aches, Stiffness, DENIES: Joint Swelling Integumentary: COMPLAINS OF: Pruritus, DENIES: Rash Hematologic/lymphatic: DENIES: Bruising Immunologic/allergic: DENIES: Eczema Neurologic: DENIES: Abnormal gait, Headache Psychiatric: DENIES: Anxiety, Depression Past Family Social History Past Medical History BPH Polymyalgia Rheumatica Hyperlipidemia Past Surgical History Neck surgery 2016 - cervical fusion (?) Back surgery 2009 - laminectomy with fusion (?) Reported Medications Active Levothyroxine (Levothyroxine Sodium) 112 Mcg Tab 112 Mcg PO DAILY Reported Finasteride 5 Mg Tab 5 Mg PO DAILY Do not crush. Omeprazole 20 Mg Tab 20 Mg PO DAILY PRN Prednisone 5 Mg Tab 5 Mg PO DAILY Allergies: Coded Allergies: No Known Allergies (Unverified Allergy, Unknown, 12/01/17) Family History Father - due to old age Mother - due to colon cancer, age > 65 Brothers - 4 , 1 living Sisters - 2 , 1 living Several family members with h/o colon polyps and colon cancer No family h/o ovarian, breast, uterine cancer Social History Tobacco: quit 1985. 2 PPD x 60 years (off and on). Approx 50 PY. 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 Cool and dry. Mild jaundice of skin from face to upper chest including eyes. HEAD: NC/AT EYES: PERRL. EOMI. No conjunctival injection or drainage. No scleral icterus. ENT: MMM, OP without erythema, tonsillar swelling, or exudate. NECK: Supple, no lymphadenopathy. No JVD. CARDIOVASCULAR: NRRR. Normal S1/S2. No MRG RESPIRATORY: CTAB. No crackles or wheezes. GASTROINTESTINAL: Abdomen soft, obese, nontender to palpation at RUQ, mildly tender at RLQ. Dullness to percussion of RUQ and LLQ. No hepato-splenomegaly or palpable masses appreciated. Negative obturator/psoas sign. MUSCULOSKELETAL: Extremities without clubbing, cyanosis, or edema. NEUROLOGICAL: Awake and alert. Cranial nerves II through XII grossly intact. Moves all extremities without difficulty. Normal speech. Laboratory Laboratory Tests Test 12/02/17 07:24 White Blood Count 11.6 Red Blood Count 4.27 Hemoglobin 12.9 Hematocrit 37.6 Mean Corpuscular Volume 88.2 Mean Corpuscular Hemoglobin 30.3 Mean Corpuscular Hemoglobin Concent 34.4 Red Cell Distribution Width 17.3 Platelet Count 106 Mean Platelet Volume 11.8 Neutrophils (%) (Auto) 57.5 Lymphocytes (%) (Auto) 18.3 Monocytes (%) (Auto) 22.7 Eosinophils (%) (Auto) 1.1 Basophils (%) (Auto) 0.4 Neutrophils # (Auto) 6.6 Lymphocytes # (Auto) 2.1 Monocytes # (Auto) 2.6 Eosinophils # (Auto) 0.1 Basophils # (Auto) 0.0 CBC Comment AUTO DIFF Differential Total Cells Counted 100 Neutrophils % (Manual) 68 Band Neutrophils % 2 Lymphocytes % 10 Monocytes % 20 Neutrophils # (Manual) 8.1 Differential Comment FINAL DIFF MANUAL Platelet Estimate LOW Platelet Morphology Comment ENLARGED Stomatocytes 2+ Blood Urea Nitrogen 15 Creatinine 0.85 Random Glucose 79 Total Protein 6.3 Albumin 2.5 Calcium Level 9.7 Alkaline Phosphatase 284 Aspartate Amino Transf (AST/SGOT) 54 Alanine Aminotransferase (ALT/SGPT) 59 Total Bilirubin 6.7 Direct Bilirubin 5.5 Sodium Level 140 Potassium Level 3.9 Chloride Level 106 Carbon Dioxide Level 27.9 Anion Gap 6 Estimat Glomerular Filtration Rate 87 Indirect Bilirubin 1.2 Tumor Marker Alpha Fetoprotein 1.9 Carcinoembryonic Antigen 1.0 CA 19-9 Antigen 85.0 Date/Time Source Procedure Growth Status 12/01/17 06:30 Urine Clean Catch Urine Culture - Preliminary IMMATURE GROWTH - REINCUBATE Resulted Result Diagram: 12/02/17 0724 12/02/17 0724 Imaging Last Impressions Abdomen/Pelvis CT 12/01/17 0619 Signed Impressions: Service Date/Time: Friday, December 01, 2017 08:35 - CONCLUSION: 1. Intrahepatic biliary duct dilatation without extrahepatic biliary duct dilatation concern for a lesion at the intrahepatic biliary duct confluence/common hepatic duct level.. A mass is not clearly seen on this CT. 2. Low density seen in the anterior segment of the right lobe of the liver. This could be secondary to diminished enhancement from diminished hepatic artery supplying this region versus focal fatty infiltration. 3. 1-2 mm stone at the right UVJ with mild dilatation the right collecting system and right ureter. MD Ann Marie Feng VTE Risk Assessment Caprini VTE Risk Assessment: Mod/High Risk (score >= 2) Caprini Risk Assessment Model Point Value = 1 Point Value = 2 Point Value = 3 Point Value = 5 Age 41-60 Minor surgery BMI > 25 kg/m2 Swollen legs Varicose veins or History of unexplained or recurrent spontaneous Oral contraceptives or hormone replacement Sepsis (< 1 month) Serious lung disease, including pneumonia (< 1 month) Abnormal pulmonary function Acute myocardial infarction Congestive heart failure (< 1 month) History of inflammatory bowel disease Medical patient at bed rest Age 61-74 Arthroscopic surgery Major open surgery (> 45 min) Laparoscopic surgery (> 45 min) Malignancy Confined to bed (> 72 hours) Immobilizing plaster cast Central venous access Age >= 75 History of VTE Family history of VTE Factor V Leiden Prothrombin [id number] Lupus anticoagulant Anticardiolipin antibodies Elevated serum homocysteine Heparin-induced thrombocytopenia Other congenital or acquired thrombophilia Stroke (< 1 month) Elective arthroplasty Hip, pelvis, or leg fracture Acute spinal cord injury (< 1 month) Prophylaxis Regimen Total Risk Factor Score Risk Level Prophylaxis Regimen 0-1 Low Early ambulation 2 Moderate Order ONE of the following: *Sequential Compression Device (SCD) *Heparin 5000 units SQ BID 3-4 Higher Order ONE of the following medications: *Heparin 5000 units SQ TID *Enoxaparin/Lovenox 40 mg SQ daily (WT < 150 kg, CrCl > 30 mL/min) *Enoxaparin/Lovenox 30 mg SQ daily (WT < 150 kg, CrCl > 10-29 mL/min) *Enoxaparin/Lovenox 30 mg SQ BID (WT < 150 kg, CrCl > 30 mL/min) AND/OR *Sequential Compression Device (SCD) 5 or more Highest Order ONE of the following medications: *Heparin 5000 units SQ TID (Preferred with Epidurals) *Enoxaparin/Lovenox 40 mg SQ daily (WT < 150 kg, CrCl > 30 mL/min) *Enoxaparin/Lovenox 30 mg SQ daily (WT < 150 kg, CrCl > 10-29 mL/min) *Enoxaparin/Lovenox 30 mg SQ BID (WT < 150 kg, CrCl > 30 mL/min) AND *Sequential Compression Device (SCD) Assessment and Plan Assessment and Plan 82 yo male with h/o PMR, BPH, hyperlipidemia presenting with: Problem List: (1) Sepsis ICD Codes: A41.9 - Sepsis, unspecified organism Plan: Initially meeting sepsis criteria due to leukocytosis + tachycardia, abdominal vs urinary source has dilated duct. will see what his ERCP shows - See plans below (2) Abdominal pain ICD Codes: R10.9 - Unspecified abdominal pain Status: Acute Plan: Sudden onset abdominal pain worst in RUQ CT findings as above Significant leukocytosis UA with hematuria, many WBC Differential including malignancy, choledocholithiasis, cholecystitis, kidney stone, UTI - Place in observation - Consult GI; may need ERCP to better evaluate presence of abdominal mass (CT findings classic though no mass visualized) - Abdominal US complete - Zosyn 3.375 Q6H IV for to cover UTI, abdominal pathogens - [place] PRN for pain control - Diet regular basic as tolerated (3) Urinary tract infection in male ICD Codes: N39.0 - Urinary tract infection, site not specified Status: Acute Plan: Has h/o UTIs in past ?complication with renal stone, very small (1-2 mm) - Strain urine to look for stone - Await UCx - Coverage with Zosyn as above (4) Polymyalgia rheumatica ICD Codes: M35.3 - Polymyalgia rheumatica Status: Chronic Plan: Pain stable, continue home prednisone (5) BPH (benign prostatic hyperplasia) ICD Codes: N40.0 - Benign prostatic hyperplasia without lower urinary tract symptoms Status: Chronic Plan: Symptoms currently well controlled, continue home finasteride (6) Hypothyroidism ICD Codes: E03.9 - Hypothyroidism, unspecified Status: Chronic Plan: Continue home Synthroid (7) FEN/PPX Plan: Fluids: PO only for now Electrolytes: Monitor and replace PRN Nutrition: Diet regular basic as tolerated DVT: Lovenox 40 mg SQ daily GI: Home PPI PRN for heartburn Dispo: Place in observation; may meet inpatient criteria depending on his ERCP Problem Qualifiers (1) Sepsis: Qualified Codes: A41.9 - Sepsis, unspecified organism (2) Abdominal pain: Qualified Codes: R10.11 - Right upper quadrant pain (3) BPH (benign prostatic hyperplasia): Qualified Codes: N40.0 - Benign prostatic hyperplasia without lower urinary tract symptoms (4) Hypothyroidism: Qualified Codes: E03.9 - Hypothyroidism, unspecified [place] MD Dec 02, 2017 15:27
[2017-12-02] MEDS: MAGNESIUM HYDROXIDE SUSP 30 ML CUP PO PRN (16:20)
[2017-12-02 19:54] VITALS: BP 122/57; PULSE 95; RESP 17; TEMP 98.2; O2SAT 95
[2017-12-02 23:29] VITALS: BP 113/71; PULSE 89; RESP 17; TEMP 98; O2SAT 96
[2017-12-03] VITALS (17 sets, daily range): BP systolic 67–135; BP diastolic 47–72; PULSE 69–121; RESP 16–26; TEMP 97.3–98.7; O2SAT 91–100
[2017-12-03] MEDS: LEVOTHYROXINE SODIUM 112 MCG TAB PO SCH (05:13)
[2017-12-03] MEDS: PIPERACIL-TAZO 3.375 GM PREMIX 50 ML IV SCH ×3 (05:15→19:23)
[2017-12-03 08:15] LABS: AUTOMATED NEUTROPHIL # 5.4 TH/MM3 (1.8-7.7); BASOPHIL % 0.3 % (0.0-2.0); EOSINOPHIL # 0.2 TH/MM3 (0-0.4); EOSINOPHIL % 1.8 % (0.0-4.0); LYMPH % 15.7 % (9.0-44.0); LYMPHOCYTE # 1.5 TH/MM3 (1.0-4.8); MEAN CELL VOLUME 88.9 FL (80.0-100.0); MEAN CORPUSCULAR HEMOGLOBIN 29.6 PG (27.0-34.0); MEAN CORPUSCULAR HGB CONC 33.3 % (32.0-36.0); MEAN PLATELET VOLUME 10.2 FL (7.0-11.0); MONO % 24.4 % (0.0-8.0); MONOCYTE # 2.3 TH/MM3 (0-0.9); NEUT % 57.8 % (16.0-70.0); PLATELET COUNT 99 TH/MM3 (150-450); RED BLOOD COUNT 4.39 MIL/MM3 (4.50-5.90); RED CELL DISTRIBUTION WIDTH 17.4 % (11.6-17.2); WHITE BLOOD COUNT 9.4 TH/MM3 (4.0-11.0)
[2017-12-03 08:42] LABS: ALBUMIN 2.4 GM/DL (3.4-5.0); AST (GOT) 61 U/L (15-37); BICARBONATE 30.9 MEQ/L (21.0-32.0); BLOOD UREA NITROGEN 13 MG/DL (7-18); CALCIUM 9.7 MG/DL (8.5-10.1); CHLORIDE 103 MEQ/L (98-107); CREATININE 0.93 MG/DL (0.60-1.30); GLOMERULAR FILTRATION RATE 78 ML/MIN (>89); GLUCOSE,RANDOM 89 MG/DL (74-106); SODIUM (NA) 138 MEQ/L (136-145)
[2017-12-03 08:43] LABS: ALT (GPT) 58 U/L (12-78)
[2017-12-03 08:45] LABS: ALKALINE PHOSPHATASE 266 U/L (45-117); TOTAL BILIRUBIN ADULT 6.9 MG/DL (0.2-1.0); TOTAL PROTEIN 6.3 GM/DL (6.4-8.2)
[2017-12-03] MEDS: FINASTERIDE 5 MG TAB PO SCH (09:00)
[2017-12-03] MEDS: predniSONE 5 MG TAB PO SCH (09:00)
[2017-12-03] MEDS: DOCUSATE SODIUM 50 MG/SENNA 8.6 MG TAB PO SCH ×2 (09:00→21:00)
--- NOTE | 2017-12-03 10:01 | HHI.FPPN ---
Subjective Remarks Mr. Feng is an 82 yo M who initially presented with jaundice and RUQ abdominal pain to the ED. Patient reports feeling better than yesterday, stating that his Abdominal pain is now only "tenderness when palpated deep". Patient is eating well (tolerating PO intake), sleeping well, able to ambulate around the room without hindrance and has no issues with urinating/defecating ( has good UOP). Patient's thinks that his jaundice is more noticeable than yesterday and thinks that his complexion is darker yellow. Patient is still experiencing pruritus. Patient does not report any nausea, vomiting, diarrhea/constipation. Patient is awaiting a procedure either from IR/GI for visualization of intrahepatic biliary ducts or stent placement to relieve blockage/visual potential tumor, but communication needs to be made with IR and GI to form a consensus with plan. If patient's status remains good, it was discussed to have patient follow-up with GI outpatient and have our team sign off. Objective Vitals Vital Signs Date Time Temp Pulse Resp B/P (MAP) Pulse Ox O2 Delivery O2 Flow Rate FiO2 12/03/17 07:57 98.0 100 21 135/72 (93) 94 12/03/17 05:15 98.0 89 16 128/66 (86) 96 12/02/17 23:29 98.0 89 17 113/71 (85) 96 12/02/17 19:54 98.2 95 17 122/57 (78) 95 12/02/17 15:25 97.5 100 18 128/66 (86) 95 12/02/17 12:31 98.1 93 22 127/70 (89) 95 I/O 12/02/17 12/02/17 12/02/17 12/03/17 12/03/17 12/03/17 07:00 15:00 23:00 07:00 15:00 23:00 Intake Total 240 ml 240 ml Balance 240 ml 240 ml Intake Oral 240 ml 240 ml # Voids 3 2 # Bowel Movements 2 2 Result Diagram: 12/03/17 0800 12/03/17 0800 Other Results Laboratory Tests Test 12/03/17 08:00 Red Blood Count 4.39 MIL/MM3 Red Cell Distribution Width 17.4 % Platelet Count 99 TH/MM3 Monocytes (%) (Auto) 24.4 % Monocytes # (Auto) 2.3 TH/MM3 Total Protein 6.3 GM/DL Albumin 2.4 GM/DL Alkaline Phosphatase 266 U/L Aspartate Amino Transf (AST/SGOT) 61 U/L Total Bilirubin 6.9 MG/DL Anion Gap 4 MEQ/L Estimat Glomerular Filtration Rate 78 ML/MIN Imaging Last Impressions Cholangiopancreatography MRI 12/02/17 0000 Signed Impressions: Service Date/Time: Saturday, December 02, 2017 08:17 - CONCLUSION: 1. Significant dilatation of the intrahepatic ducts ending at the confluence and possibility of stricture at this site or a Klatskin's tumor which is not visualized should be entertained. 2. Wedge-shaped focal fat right hepatic lobe. KLivier Jean MD Abdomen/Pelvis CT 12/01/17 0619 Signed Impressions: Service Date/Time: Friday, December 01, 2017 08:35 - CONCLUSION: 1. Intrahepatic biliary duct dilatation without extrahepatic biliary duct dilatation concern for a lesion at the intrahepatic biliary duct confluence/common hepatic duct level.. A mass is not clearly seen on this CT. 2. Low density seen in the anterior segment of the right lobe of the liver. This could be secondary to diminished enhancement from diminished hepatic artery supplying this region versus focal fatty infiltration. 3. 1-2 mm stone at the right UVJ with mild dilatation the right collecting system and right ureter. Landry Zarate MD Abdomen Ultrasound 12/01/17 0000 Signed Impressions: Service Date/Time: Friday, December 01, 2017 11:49 - CONCLUSION: 1. Intrahepatic biliary duct dilatation better seen on the CT examination. A lesion at the biliary duct confluence/common hepatic duct region still needs to be suspected. An ERCP or MRCP could be used to further evaluate this region. 2. Suspected area of focal hepatic steatosis at the anterior segment right lobe of the liver. 3. Gallstones Landry Zarate MD Objective Remarks Physical Exam GEN: well appearing, well nourished, NAD, A&Ox4 CV: RRR no rubs, gallops, or murmurs appreciated. equal, strong pulses bilaterally. Resp: CTA bilaterally, no wheezes, rhonchi, or rales noted. Abdomen: soft, tender to deep palpation on RUQ, no rebound, no succussion splash noted. no distension. no fluid wave appreciated. Skin: mild to moderate jaundice but improved in intensity. jaundice has continued to extend to just above the nipple line. Medications and IVs Current Medications Medications (Trade) Dose Ordered Sig/Rafa Route PRN Reason Start Time Stop Time Status Last Admin Dose Admin Sodium Chloride (NS Flush) 2 ml UNSCH PRN IV FLUSH FLUSH AFTER USING IV ACCESS 12/01/17 11:00 Sodium Chloride (NS Flush) 2 ml BID IV FLUSH 12/01/17 21:00 12/02/17 21:14 Ondansetron HCl (Zofran Inj) 4 mg Q6H PRN IVP NAUSEA OR VOMITING 12/01/17 11:00 Zolpidem Tartrate (Ambien) 5 mg HS PRN PO INSOMNIA 12/01/17 21:00 12/02/17 21:14 Enoxaparin Sodium (Lovenox Inj) 40 mg Q24H SQ 12/01/17 12:00 12/01/17 14:57 Acetaminophen/ Hydrocodone Bitart ([place] 5-325 Mg) 1 tab Q4H PRN PO PAIN SCALE 3 TO 5 12/01/17 11:00 Acetaminophen/ Hydrocodone Bitart ([place] 10-325 Mg) 1 tab Q4H PRN PO PAIN SCALE 6 TO 10 12/01/17 11:00 Naloxone HCl (Narcan Inj) 0.4 mg UNSCH PRN IV PUSH SEE LABEL COMMENTS 12/01/17 11:00 Senna/Docusate Sodium ([place]edee-Colace) 1 tab BID PO 12/01/17 21:00 12/01/17 22:14 Magnesium Hydroxide (Milk Of Magnesia Liq) 30 ml Q12H PRN PO Mild constipation 12/01/17 11:00 12/02/17 16:20 Sennosides (Senokot) 17.2 mg Q12H PRN PO Moderate constipation 12/01/17 11:00 Bisacodyl (Dulcolax Supp) 10 mg DAILY PRN RECTAL SEVERE CONSITIPATION 12/01/17 11:00 Lactulose (Lactulose Liq) 30 ml DAILY PRN PO SEVERE CONSITIPATION 12/01/17 11:00 Finasteride (Proscar) 5 mg DAILY PO 12/02/17 09:00 Levothyroxine Sodium (Synthroid) 112 mcg DAILY@0600 PO 12/02/17 06:00 12/03/17 05:13 Prednisone (Deltasone) 5 mg DAILY PO 12/02/17 09:00 Pantoprazole Sodium (Protonix) 20 mg DAILY PRN PO DYSPEPSIA 12/01/17 11:00 Piperacillin Sod/ Tazobactam Sod 50 ml @ 100 mls/hr Q6H IV 12/01/17 16:00 12/03/17 05:15 Urinary Catheter: No A/P Assessment and Plan 82 yo male with h/o PMR, BPH, hyperlipidemia presenting with: Problem List: (1) Abdominal pain ICD Codes: R10.9 - Unspecified abdominal pain Status: Acute Plan: Sudden onset abdominal pain worst in RUQ - has since progressed to tenderness to deep palpation, minimal pain. CT findings as above Significant leukocytosis - since resolved with Zosyn UA with hematuria, many WBC Item Value Date Time Tumor Marker Alpha Fetoprotein 1.9 NG/ML 12/02/17 0724 Carcinoembryonic Antigen 1.0 NG/ML 12/02/17 0724 CA 19-9 Antigen 85.0 U/ML H 12/02/17 0724 Differential including malignancy, choledocholithiasis, cholecystitis, kidney stone, UTI - Remain in observation - Re-Consult GI/IR; the call was made and they are attempting to coordinate. may need ERCP and/or PTC/PTCD to better evaluate presence of abdominal mass and alleviate abd pain and jaundice (CT findings classic though no mass visualized) . - Abdominal US complete - Zosyn 3.375 Q6H IV for to cover UTI, abdominal pathogens - [place] PRN for pain control - Diet regular basic as tolerated - f/u outpatient pending GI diagnostic impression. (2) Urinary tract infection in male ICD Codes: N39.0 - Urinary tract infection, site not specified Status: Acute Plan: Has h/o UTIs in past ?complication with renal stone, very small (1-2 mm) - Strain urine to look for stone - Await UCx - Coverage with Zosyn as above (3) Polymyalgia rheumatica ICD Codes: M35.3 - Polymyalgia rheumatica Status: Chronic Plan: Pain stable, continue home prednisone (4) BPH (benign prostatic hyperplasia) ICD Codes: N40.0 - Benign prostatic hyperplasia without lower urinary tract symptoms Status: Chronic Plan: Symptoms currently well controlled, continue home finasteride (5) Hypothyroidism ICD Codes: E03.9 - Hypothyroidism, unspecified Status: Chronic Plan: Continue home Synthroid (6) FEN/PPX Plan: Fluids: PO only for now - will be ok to have ice chips. No IVF. Electrolytes: Monitor and replace PRN Nutrition: Diet regular basic as tolerated - was put NPO for possible procedure soon. DVT: Lovenox 40 mg SQ daily - will hold since plts <100k and patient is ambulating. We discussed the possibility of continuing without issues but there is the possibility of a procedure, so we will need to hold it for the time being to avoid risk of a bleeding event. GI: Home PPI PRN for heartburn Dispo: Place in observation; may meet inpatient criteria depending on his ERCP Problem Qualifiers (1) Abdominal pain: Qualified Codes: R10.11 - Right upper quadrant pain (2) BPH (benign prostatic hyperplasia): Qualified Codes: N40.0 - Benign prostatic hyperplasia without lower urinary tract symptoms (3) Hypothyroidism: Qualified Codes: E03.9 - Hypothyroidism, unspecified [place] MD Dec 03, 2017 10:01
[2017-12-03] MEDS: SODIUM CHLORIDE 0.9% FLUSH 10 ML FLUSH IV FLUSH SCH (11:11)
[2017-12-03] MEDS ORDERED: MIDAZOLAM HCL 2 MG/2 ML VIAL ONE (12:50)
[2017-12-03] MEDS ORDERED: LEVOFLOXACIN 500 MG PREMIX INJ 100 ML IV ONE (12:51)
[2017-12-03] MEDS ORDERED: fentaNYL CITRATE 250 MCG/5 ML AMP ONE (12:51)
[2017-12-03] MEDS: ONDANSETRON HCL 4 MG/2 ML VIAL IVP PRN ×2 (15:37→20:00)
--- NOTE | 2017-12-03 16:01 | RADRPT ---
EXAM DATE/TIME: 12/03/2017 14:10 [facility] COMPARISON: No previous studies available for comparison. INDICATIONS : Patient presents with an obstruction in need of stent placement. MEDICAL HISTORY : BPH Polymyalgia Rheumatica Hyperlipidemia SURGICAL HISTORY : Neck surgery 2016- cervical fusion Back surgey 2010- Laminectomy with fusion ENCOUNTER: Initial ACUITY: 3 days PAIN SCORE: 0/10 FLUORO TIME: 40.1 minutes IMAGE SERIES: 6 SEDATION TIME: 75 minutes CONTRAST: 60 cc Omnipaque (iohexol) 350 MEDICATION(S): 1.) 5 mg midazolam (Versed) IV 2.) 250 mcg fentanyl (Sublimaze) IV DEVICE(S): 1.) 8 Romanian biliary drain PROCEDURE : 1. Ultrasound guided puncture of the biliary tree. 2. Percutaneous antegrade cholangiogram. 3. Biliary stent placement. 4. Conscious sedation with continuous EKG and oximetry monitoring. The risks, benefits and alternatives to the procedure were explained and verbal and written consent w as obtained. The site was prepped in sterile fashion. Full sterile technique was used, including ca p, mask, sterile gloves and gown and a large sterile sheet. Hand hygiene and 2% chlorhexidine and/or betadine/alcohol prep was utilized per protocol for cutaneous antisepsis. Sterile gel and sterile p robe cover were utilized for ultrasound guidance. The skin and subcutaneous tissues were infiltrated with local anesthetic solution. With ultrasound and fluoroscopic guidance the biliary tree was punctured with a 22 gauge Chiba needle and the biliary tree was opacified. An Accustick set was used to gain access to the biliary tree and a guidewire was passed into the duodenum. Serial dilatation was performed to accept the prescribed catheter. Injection of positive contrast demonstrates appropriate position. 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 Conscious sedation was performed with the prescribed dosages and duration as above in the presence of an independent trained radiology nurse to assist in the monitoring of the patient. EKG and oximetry remained stable throughout the procedure. The patient tolerated the procedure well and there were n o complications. The patient was sent to post anesthesia recovery in stable condition. CONCLUSION: Uncomplicated biliary stent placement as above. Bj Hurtado MD on December 03, 2017 at 15:51 Board Certified Radiologist. This report was verified electronically.
[2017-12-03] MEDS ORDERED: SODIUM CHLOR 0.9% 1000 ML INJ 1,000 ML IV ONE (16:30)
--- NOTE | 2017-12-03 17:06 | HHI.PR ---
Addendum to Inpatient Note Addendum Reason: Additional Documentation Additional Information Subjective Responded to [facility] called for patient fainting while on the toilet. No fall. On arrival denies CP/SOB. Feels a little fatigued and hungry. Mild lightheadedness. Objective Vital Signs Label Value Date Time Pulse 97 12/03/17 1612 Blood Pressure Assessment 67/47 (54) 12/03/17 1612 Location L Arm Source Automatic Cuff Position Supine Pulse 89 12/03/17 1613 Blood Pressure Assessment 73/50 (58) 12/03/17 1613 Location L Arm Source Automatic Cuff Position Supine Pulse 87 12/03/17 1615 Blood Pressure Assessment 78/55 (63) 12/03/17 1615 Location L Arm Source Automatic Cuff Position Supine Pulse 90 12/03/17 1619 Blood Pressure Assessment 88/55 (66) 12/03/17 1619 Location L Arm Source Automatic Cuff Position Supine GEN: WDWN adult jaundiced male lying flat in bed in NAD CV: normal to slightly tachycardic, regular, no murmur LUNG: Normal rate and effort, CTAB ABD: Soft, mildly distended, mildly tender to palpation in RUQ. ANI drain with serosanguinous fluid NEURO: Awake, alert. Geomagnetician strength 5/5 bilaterally. Moves both legs without difficulty. EKG: NSR with normal rate, borderline left axis deviation, T-wave inversions V1- 2; stable from EKG done on admission BSs Assessment and Plan Episode of hypotension and subsequent fainting likely combination of volume depletion from being NPO, anesthesia effect from after procedure, vagal reaction during toileting, orthostasis. - NS bolus 1 L - Diet ordered; encourage patient to eat and drink - EKG benign; check troponin and CKMB - BP corrected to low 100s. Continue to monitor. Re-bolus as needed dw Vincent Major MD Dec 03, 2017 5:06 pm
--- NOTE | 2017-12-03 17:15 | PD.RAD ---
Post Procedure Progress Note Pre Procedure Diagnosis: (1) Jaundice Post Procedure Diagnosis: (1) Jaundice Procedure Date: Dec 03, 2017 Supervising Radiologist: Bj Hurtado Proceduralist/Assist: Loc Hernandez RT(R), RT Beckie(R) Anesthesia: Conscious Sedation Plan of Activity Patient to Unit: Nursing Unit Patient Condition: Good See PACS Report for procedural detail/treatment Drainage Procedure Procedure 1 Imaging Guidance: Fluoroscopy Procedure Type: Biliary Drainage Procedure: Placement Drainage: [place] drainage Fluid Description: Clear, Yellow Bj Hurtado MD Dec 03, 2017 17:15
[2017-12-03 18:01] LABS: TROPONIN I LESS THAN 0.02 NG/ML (0.02-0.05)
[2017-12-03] MEDS ORDERED: SODIUM CHLORID 0.9% 500 ML INJ 500 ML IV ONE (18:15)
--- NOTE | 2017-12-03 18:27 | RADRPT ---
EXAM DATE/TIME: 12/03/2017 18:14 [facility] COMPARISON: No previous studies available for comparison. INDICATIONS : Short of breath after biliary stent placement. MEDICAL HISTORY : None. SURGICAL HISTORY : None. ENCOUNTER: Initial ACUITY: 1 day PAIN SCORE: 0/10 LOCATION: Bilateral chest FINDINGS: There is slight left lung base atelectasis. There is no appreciable pleural effusion for technique. Heart and mediastinum are unremarkable. CONCLUSION: Mild left lung base atelectasis. Luz Jean MD on December 03, 2017 at 18:24 Board Certified Radiologist. This report was verified electronically.
--- NOTE | 2017-12-03 18:31 | RADRPT ---
EXAM DATE/TIME: 12/03/2017 18:15 [facility] COMPARISON: No previous studies available for comparison. INDICATIONS : Abdominal pain after biliary stent placement. MEDICAL HISTORY : None. SURGICAL HISTORY : None. ENCOUNTER: Initial ACUITY: 1 day PAIN SCORE: 10/10 LOCATION: Right abdomen. FINDINGS: The bowel gas is nonspecific. There are no signs of obstruction or free air for technique. No defini te calcified stones are identified for technique. Percutaneous biliary drain is present with tip coil ed in the region of the second portion of the duodenum. There is contrast in the patient's kidneys an d bladder. CONCLUSION: Nonspecific abdomen. Luz Jean MD on December 03, 2017 at 18:29 Board Certified Radiologist. This report was verified electronically.
[2017-12-03] MEDS ORDERED: predniSONE 5 MG TAB PO ONE (18:45)
[2017-12-03] MEDS ORDERED: FINASTERIDE 5 MG TAB PO ONE (18:45)
[2017-12-03] MEDS ORDERED: EPINEPHrine HCL (1:10,000) 1 MG/10 ML SYRINGE ONE (21:10)
[2017-12-03] MEDS ORDERED: ATROPINE SULFATE 1 MG/10 ML SYRINGE ONE (21:10)
[2017-12-03 21:27] LABS: HEMATOCRIT 29.5 % (39.0-51.0); HEMOGLOBIN 9.4 GM/DL (13.0-17.0); MEAN CELL VOLUME 91.8 FL (80.0-100.0); MEAN CORPUSCULAR HEMOGLOBIN 29.2 PG (27.0-34.0); MEAN CORPUSCULAR HGB CONC 31.9 % (32.0-36.0); MEAN PLATELET VOLUME 11.9 FL (7.0-11.0); PLATELET COUNT 135 TH/MM3 (150-450); RED BLOOD COUNT 3.22 MIL/MM3 (4.50-5.90); RED CELL DISTRIBUTION WIDTH 17.8 % (11.6-17.2); WHITE BLOOD COUNT 27.5 TH/MM3 (4.0-11.0)
[2017-12-03 21:39] LABS: LACTIC ACID SEPSIS PROTOCOL 3.8 mmol/L (0.4-2.0)
[2017-12-03] MEDS ORDERED: HYDROCORTISONE SOD SUCCINATE 100 MG VIAL IV PUSH SCH ×2 (22:00)
[2017-12-03] MEDS ORDERED: methylPREDNISolone SOD SUCC 40 MG/1 ML VIAL IV PUSH SCH (22:00)
[2017-12-03 22:02] LABS: AST (GOT) 69 U/L (15-37); BICARBONATE 24.6 MEQ/L (21.0-32.0); BLOOD UREA NITROGEN 18 MG/DL (7-18); CALCIUM 8.1 MG/DL (8.5-10.1); CHLORIDE 111 MEQ/L (98-107); CREATININE 1.31 MG/DL (0.60-1.30); GLOMERULAR FILTRATION RATE 53 ML/MIN (>89); GLUCOSE,RANDOM 148 MG/DL (74-106); SODIUM (NA) 145 MEQ/L (136-145)
[2017-12-03 22:15] LABS: ALKALINE PHOSPHATASE 210 U/L (45-117); ALT (GPT) 62 U/L (12-78); TOTAL BILIRUBIN ADULT 6.2 MG/DL (0.2-1.0); TOTAL PROTEIN 5.1 GM/DL (6.4-8.2)
[2017-12-03] MEDS ORDERED: PHENYLEPHRINE INJ 40 MG in DEXTROSE 5% IN WATE 500 ML INJ 496 ML IV PRN ×2 (22:15)
[2017-12-03] MEDS ORDERED: SODIUM CHLOR 0.9% 250 ML INJ 250 ML IV ONE (22:15)
[2017-12-03] MEDS ORDERED: TERBUTALINE INJ 1 MG/ML AMP SQ PRN (22:15)
--- NOTE | 2017-12-03 23:05 | PD.CONS ---
HPI Service Critical Care Medicine Consult Requested By Dr. Bass. Reason for Consult Hypotension Primary Care Physician Non-Staff History of Present Illness 82-year-old male with past history of BPH, hyperlipidemia, PMR who is admitted to [facility] 12/01/17 with right upper quadrant abdominal pain and jaundice. LFTs were elevated in an obstructive pattern. CT demonstrated intrahepatic biliary duct dilatation. A mass was not clearly seen. 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 He underwent percutaneous biliary stent placement and drain by interventional radiology 12/03/17 (Dr. Hurtado). He was hypotensive post procedure and this was initially managed by family service caseworker with 1.5 L fluid resuscitation and stress dose steroids, abx for possible biliary sepsis. Hypotension persisted and he was transferred to ICU with critical care medicine consult. When I went to evaluate the patient he appeared pale with cool skin concerning for hemorrhagic shock. CBC demonstrated leukocytosis 27.5 and hemoglobin was 9.4 from a baseline of 13. Place central line and art line, started neosynephrine, began transfusing blood products until appropriately stabilized for transition to CT scanner. CT scan demonstrated moderate hemoperitoneum with hemorrhage adjacent to the liver. The biliary drain was in good position. Called Dr. Montero who will take patient to OR for emergent laparotomy. agreeable to risks of surgery. Upon transition to OR he had received PRBC 7 units, 2 units FFP and 1 gram calcium chloride with 1 more unit of FFP, 1 unit platelets, 1 unit cryo ready to transfuse. Review of Systems ROS Limitations: Clinical Condition, Intubated Constitutional: DENIES: Fever Respiratory: COMPLAINS OF: Shortness of breath Cardiovascular: DENIES: Chest pain Gastrointestinal: COMPLAINS OF: Abdominal pain Past Family Social History Allergies: Coded Allergies: No Known Allergies (Unverified Allergy, Unknown, 12/01/17) Past Medical History Hypothyroidism Polymyalgia rheumatica BPH Hyperlipidemia GERD Past Surgical History Cervical fusion Lumbar laminectomy Right inguinal hernia repair 2 Left inguinal hernia repair Procedure for kidney stones Prostate biopsy Reported Medications Omeprazole 20 mg by mouth daily Prednisone 5 mill grams by mouth daily Levothyroxine 112 my grams by mouth daily Finasteride 5 mill grams by mouth daily Family History Father at age 86 with no known significant medical problems Mother had colon cancer 2 brothers had colon cancer A sister had colon cancer Social History Started smoking at age 14 quit in 1982 Used to drink heavily from age 14-13-1982. He now drinks very rarely She and his relocated from [place] Physical Exam Vital Signs Vital Signs Date Time Temp Pulse Resp B/P (MAP) Pulse Ox O2 Delivery O2 Flow Rate FiO2 12/03/17 22:00 100 Nasal Cannula 2.00 12/03/17 19:00 97 90/55 (67) 100 12/03/17 16:43 97 18 103/58 (73) 100 12/03/17 16:35 94 105/63 (77) 99 12/03/17 16:19 90 88/55 (66) 92 12/03/17 16:15 87 78/55 (63) 91 12/03/17 16:13 89 73/50 (58) 92 12/03/17 16:12 97 67/47 (54) 12/03/17 15:30 100 18 100/50 (67) 94 12/03/17 15:00 94 17 106/54 (71) 96 12/03/17 15:00 95 17 106/52 (70) 95 12/03/17 14:45 97.7 106 19 95/66 (76) 92 12/03/17 14:45 97.7 106 18 95/66 (76) 94 12/03/17 11:10 98.7 69 129/64 (85) 95 12/03/17 07:57 98.0 100 21 135/72 (93) 94 12/03/17 05:15 98.0 89 16 128/66 (86) 96 12/02/17 23:29 98.0 89 17 113/71 (85) 96 Physical Exam GENERAL: Pale appearing male, tachypneic and anxious appearing. SKIN: Cool to touch HEAD: Atraumatic. Normocephalic. EYES: Pupils equal and round. +icterus ENT: No nasal bleeding or discharge. Mucous membranes pale NECK: Trachea midline. Jugular veins flat CARDIOVASCULAR: Tachycardic, regular, sinus tach on the monitor with rate in the 130s. No murmurs rubs or gallops. RESPIRATORY: Tachypneic on nasal cannula. No wheezes rales or rhonchi. GASTROINTESTINAL: Tender and firm RUQ (patient states has been like that). Biliary drain in place with bilious drainage, no blood. Remainder of abdomen soft. No rebound or guarding. Bowel sounds present. MUSCULOSKELETAL: Extremities without clubbing, cyanosis, or edema. NEUROLOGICAL: Awake and alert. No obvious cranial nerve deficits. Motor grossly within normal limits. He moves all extremities Normal speech. Laboratory Laboratory Tests Test 12/03/17 08:00 12/03/17 16:45 12/03/17 20:54 White Blood Count 9.4 27.5 Red Blood Count 4.39 3.22 Hemoglobin 13.0 9.4 Hematocrit 39.0 29.5 Mean Corpuscular Volume 88.9 91.8 Mean Corpuscular Hemoglobin 29.6 29.2 Mean Corpuscular Hemoglobin Concent 33.3 31.9 Red Cell Distribution Width 17.4 17.8 Platelet Count 99 135 Mean Platelet Volume 10.2 11.9 Neutrophils (%) (Auto) 57.8 Lymphocytes (%) (Auto) 15.7 Monocytes (%) (Auto) 24.4 Eosinophils (%) (Auto) 1.8 Basophils (%) (Auto) 0.3 Neutrophils # (Auto) 5.4 Lymphocytes # (Auto) 1.5 Monocytes # (Auto) 2.3 Eosinophils # (Auto) 0.2 Basophils # (Auto) 0.0 CBC Comment AUTO DIFF Differential Comment AUTO DIFF CONFIRMED Blood Urea Nitrogen 13 18 Creatinine 0.93 1.31 Random Glucose 89 148 Total Protein 6.3 5.1 Albumin 2.4 2.0 Calcium Level 9.7 8.1 Alkaline Phosphatase 266 210 Aspartate Amino Transf (AST/SGOT) 61 69 Alanine Aminotransferase (ALT/SGPT) 58 62 Total Bilirubin 6.9 6.2 Sodium Level 138 145 Potassium Level 4.5 4.0 Chloride Level 103 111 Carbon Dioxide Level 30.9 24.6 Anion Gap 4 9 Estimat Glomerular Filtration Rate 78 53 Total Creatine Kinase 64 Troponin I LESS THAN 0.02 Lactic Acid Level 3.8 Date/Time Source Procedure Growth Status 12/03/17 20:54 Blood Peripheral Aerobic Blood Culture Pending Received 12/03/17 20:54 Blood Peripheral Anaerobic Blood Culture Pending Received 12/01/17 06:30 Urine Clean Catch Urine Culture - Final Staphylococcus Epidermidis Complete Result Diagram: 12/03/17205312/03/172053 Assessment and Plan Problem List: (1) Hemorrhagic shock ICD Code: R57.8 - Other shock Status: Acute (2) BPH (benign prostatic hyperplasia) ICD Code: N40.0 - Benign prostatic hyperplasia without lower urinary tract symptoms Status: Chronic (3) Intrahepatic cholestasis ICD Code: K76.89 - Other specified diseases of liver Status: Acute (4) Respiratory failure, acute ICD Code: J96.00 - Acute respiratory failure, unspecified whether with hypoxia or hypercapnia Status: Acute (5) ANAMIKA (acute kidney injury) ICD Code: N17.9 - Acute kidney failure, unspecified Status: Acute (6) Leukocytosis ICD Code: D72.829 - Elevated white blood cell count, unspecified Status: Acute (7) Metabolic acidemia ICD Code: E87.2 - Acidosis Status: Acute (8) Current chronic use of systemic steroids ICD Code: Z79.52 - terminal block assembler (current) use of systemic steroids Status: Chronic (9) Hypothyroidism ICD Code: E03.9 - Hypothyroidism, unspecified Status: Chronic (10) Polymyalgia rheumatica ICD Code: M35.3 - Polymyalgia rheumatica Status: Chronic Assessment and Plan NEURO: Fentanyl for sedation Daily sedation vacation RESP: Acute respiratory failure with metabolic and respiratory acidemia Intubated due to severe metabolic acidemia and need to transition to OR for hemorrhage. Ventilator bundle Wean to extubate when hemodynamically stabilized CV: Hemorrhagic shock Art line for hemodynamic monitoring. Monitor CBC. Monitor coags. Transfuse based on hemodynamics Chas-Synephrine as needed to maintain mean arterial pressure greater than 65 Stress dose steroids as per below GI: Intrahepatic biliary obstruction status post biliary stent and drain 12/03/16 ( Dr. Hurtado) Nothing by mouth. CT scan scan with hemoperitoneum - transition to OR for ex lap per Dr. Montero GI following for biliary obstruction ?tumor Elevated a 19-9 FEN/RENAL: Severe metabolic acidemia secondary to acute blood loss Acute kidney injury BPH Initial ABG 7.10/PACO2 39/PaO2 323 with base deficit -16. Improving following resuscitation. Gave Bicarb 100 MEQ IV and Bicarb [id number] MEQ @ 100 ml/hr Insert Carmona. Monitor intake and output. Monitor electrolyte. Replace electrolytes as indicated per replacement protocol Gave calcium chloride 1 g IV Hold Proscar due to hypotension ID: Leukocytosis - may be reactive secondary to acute hemorrhage. Initially concerned for concomitant sepsis or bacteremia s/p biliary stent, therefore obtained repeat blood cultures, biliary culture. On zosyn, continued vancomycin that was added by family service caseworker, added fluconazole. Will narrow abx as appropriate based on cultures. HEME: Acute blood loss anemia Transfused 7 units packed red cells, 3 units FFP,, 1 unit cryo on 12/03 - 12/04 Serial CBC and recheck coags. ENDO: Hypothyroidism Continue Synthroid 112 g by mouth daily Chronic prednisone Hydrocortisone 100 mg IV every 8 hours PROPH: SCDs for DVT prophylaxis. Hold Lovenox due to acute hemorrhage. Protonix 40 mg IV q12 until able to r/o GI source of bleeding. ACCESS: Right IJ central venous line placed 12/03/17 #1. Left femoral art line placed 12/03/17 #1. CCT 120 minutes exclusive of separately billable procedures. Time spent at bedside actively were resuscitating patient with blood products and pressors. Problem Qualifiers (1) Respiratory failure, acute: Qualified Codes: J96.02 - Acute respiratory failure with hypercapnia (2) Leukocytosis: Qualified Codes: D72.829 - Elevated white blood cell count, unspecified (3) Hypothyroidism: Qualified Codes: E03.9 - Hypothyroidism, unspecified Ayaka Chan MD Dec 03, 2017 23:05
[2017-12-03 23:27] LABS: PROTHROMBIN TIME - PATIENT 10.6 SEC (9.8-11.6)
--- NOTE | 2017-12-03 23:29 | HHI.PR ---
Addendum to Inpatient Note Addendum Reason: Additional Documentation Additional Information Called by nursing at approximately 1718 for patient's hypotension. States that he continues to have hypotension at around the 80s to 70 systolic. At this time he has received a 500 mL bolus and most of a 1 L bolus still being pushed. S: Patient reports lightheadedness, dizziness whenever he sits up. The patient has high-grade but does not report increased thirst. No chest pain, shortness of breath, palpitations, left arm or jaw pain, sweating, additional syncope. He had passed out earlier today when he attempted to go the bathroom. He does note some pain at the site of his biliary drain procedure performed earlier today. The abdominal pain is localized to that area in the right upper quadrant, constant, dull, has not increased in intensity. No other complaints at this time. O: GENERAL: Laying in bed, uncomfortable. SKIN: Warm and dry. HEAD: Atraumatic. Normocephalic. EYES: Pupils equal and round. No scleral icterus. No injection or drainage. NECK: Trachea midline. No JVD. CARDIOVASCULAR: Regular rate and rhythm. RESPIRATORY: No accessory muscle use. Clear to auscultation. Breath sounds equal bilaterally. GASTROINTESTINAL: Abdomen tender in the right upper quadrant, no rebound. Active guarding when palpating the right side. Dressing at site of prior procedure appears clean/dry/intact. Hepatic and splenic margins not palpable. MUSCULOSKELETAL: Extremities without clubbing, cyanosis, or edema. No obvious deformities. NEUROLOGICAL: Awake and alert. No obvious cranial nerve deficits. Motor grossly within normal limits. Normal speech. PSYCHIATRIC: Appropriate mood and affect; insight and judgment normal. A/P: 82-year-old male with hypotension persisting since biliary drain placement. S/P 500 mL bolus normal saline with 1 L running. No current signs of pneumothorax, peritoneal bleed. Received Versed and fentanyl for procedure earlier today. -Follow up stat CXR, abdominal x-ray -Follow-up stat CMP, CBC, lactic acid -Additional 1 L NS bolus -Will admit to stepdown unit if hypotension persists (Diomedes Hook MD R1) Additional Information Resident team paged at 19:[address] Bass and I went to evaluate patient. Patient blood pressure remained stable at 112/70, HR 80s with Trendelenburg positioning. Patient appeared very nauseated and complained of SOB. Suspecting adrenal insufficiency due to chronic steroid use and recent IR procedure. Spoke to forensic identification specialist, Dr. Chan, recommended administration of hydrocortisone 50mg IV q6hr and transfer to the ICU. Resident called again at 21:52 by nurse. Patient continued to be hypotensive 77s -80s/50s despite IV fluids. Nurse also reports that patient was anuric after performing bladder scan. CBC demonstrated elevated WBC of 27.5 and Lactic acid of 3.8. Abdominal X-ray showed nonspecific abdomen and CXR revealed mild left lung base atelectasis. Vancomycin 1200mg IV q12h added for suspected sepsis. Notified and discussed case with Dr. Chan, nurse, patient, and patient's . Stat CT/Abd pelvis with IV contrast ordered. Dr. Chan taking over care of patient. (Darlyn Ewing MD R1) Diomedes Hook MD R1 Dec 03, 2017 23:29 Darlyn Ewing MD R1 Dec 03, 2017 23:32
--- NOTE | 2017-12-03 23:32 | RADRPT ---
EXAM DATE/TIME: 12/03/2017 23:15 [facility] COMPARISON: CHEST SINGLE AP, December 03, 2017, 18:14. INDICATIONS : Post central line placement MEDICAL HISTORY : None. SURGICAL HISTORY : None. ENCOUNTER: Initial ACUITY: 1 day PAIN SCORE: 0/10 LOCATION: Bilateral chest FINDINGS: A single view of the chest demonstrates the lungs to be symmetrically aerated without evidence of mas s, infiltrate or effusion. The cardiomediastinal contours are unremarkable. A right internal jugular vein central venous line. The tip is in the mid to lower right atrium. No pneumothorax. Cervical spi nal fusion plate. Osseous structures are intact. CONCLUSION: 1. Central line with the tip in the mid to lower right atrium. No pneumothorax. 2. Clear lungs. Jung Lundberg Jr., MD on December 03, 2017 at 23:29 Board Certified Radiologist. This report was verified electronically.
[2017-12-03] MEDS ORDERED: ETOMIDATE 40 MG/20 ML VIAL ONE (23:35)
[2017-12-04] VITALS (21 sets, daily range): BP systolic 107–167; BP diastolic 48–72; PULSE 63–111; RESP 16–24; TEMP 96.5–98.5; O2SAT 92–100
--- NOTE | 2017-12-04 00:24 | PD.PROCEDR ---
Procedure Note Procedure DATE: 12/04/17 PROCEDURE: Left femoral arterial catheter placement INDICATION: Shock and respiratory failure with need for hemodynamic and ABG monitoring. DETAILS OF PROCEDURE The patient was placed in supine position. The left groin was shaved. The skin was cleansed with Chloraprep 5. Additional barrier precautions included large sterile drape, sterile gloves, sterile gown, face mask, and hat. 1% lidocaine was used for local anesthesia. Under direct ultrasound guidnce and on the first attempt, the artery was accessed with an introducer needle. The guide wire was advanced. The skin/soft tissue was dilated. Using Seldinger technique 16 gauge 20 cm Arrow catheter was placed. The guide wire was removed. The catheter was connected to a transducer line and flushed with saline. The video monitor displayed normal arterial wave forms. The catheter was secured with 2-0 silk. A sterile dressing with antibiotic disc was applied. ESTIMATED BLOOD LOSS: minimal COMPLICATIONS: None Ayaka Chan MD Dec 04, 2017 00:24
--- NOTE | 2017-12-04 00:24 | PD.PROCEDR ---
Procedure Note Procedure DATE: 12/04/17 CENTRAL LINE PLACEMENT: Right internal jugular vein. INDICATION: Central venous access CONSENT Informed consent for procedure was obtained from patient's after discussion of risks, benefits, alternatives. DESCRIPTION OF THE PROCEDURE The patient was placed in supine position, Trendelenburg. The skin was cleansed with Chloraprep 4. Additional barrier precautions included large sterile drape, sterile gloves, sterile gown, face mask, and hat. 1 % lidocaine was used for local anesthesia. Under direct ultrasound guidance and on single attempt, the vein was accessed with an introducer needle. The guide wire was advanced and the tract was dilated. Using Seldinger technique a 7 Setswana 20 cm antimicrobial coated triple-lumen catheter was advanced to a depth of 18 centimeters. The guide wire was removed. All ports had good return of dark venous blood and flushed easily with saline. The central line was secured with 2.0 silk. A sterile dressing with antibiotic disc was applied. ESTIMATED BLOOD LOSS: Minimal COMPLICATIONS: No apparent complications. STAT chest x-ray done straight catheter central venous line position without apparent complication. Ayaka Chan MD Dec 04, 2017 00:24
[2017-12-04] MEDS: HYDROCORTISONE SOD SUCCINATE 100 MG VIAL IV PUSH SCH ×4 (00:30→21:26)
[2017-12-04] MEDS ORDERED: SODIUM BICARBONATE 8.4% SOLN 50 MEQ/50 ML VIAL IV PUSH ONE (00:30)
[2017-12-04] MEDS: PIPERACIL-TAZO 3.375 GM PREMIX 50 ML IV SCH ×5 (00:41→21:26)
[2017-12-04] MEDS: SODIUM CHLORIDE 0.9% FLUSH 10 ML FLUSH IV FLUSH SCH ×3 (00:44→21:00)
[2017-12-04] MEDS ORDERED: fentaNYL 2,500 MCG/NS 250 ML IV PRN (01:30)
[2017-12-04] MEDS ORDERED: fentaNYL DRIP 250 ML IV PRN (01:30)
[2017-12-04] MEDS ORDERED: SODIUM CHLOR 0.9% 250 ML INJ 250 ML IV ONE ×4 (01:30→04:15)
[2017-12-04] MEDS: SODIUM BICARBONATE 8.4% INJ 150 MEQ in DEXTROSE 5% IN WATE 1000ML INJ 1,000 ML IV SCH ×6 (01:31→22:35)
[2017-12-04] MEDS: VANCOMYCIN INJ 1,200 MG in SODIUM CHLOR 0.9% 250 ML INJ 250 ML IV SCH ×3 (01:33→22:36)
--- NOTE | 2017-12-04 01:55 | PD.PROCEDR ---
Procedure Note Procedure PROCEDURE NOTE PROCEDURE: Endotracheal intubation INDICATION: Acute respiratory failure. DETAILS OF PROCEDURE: The patient was placed in optimal position and preoxygenated with 100% FiO2 via [id number]. Oximeter oxygen saturation of 96% was obtained prior to direct laryngoscopy. NC was placed. The patient was administered etomidate 20 mg IV for sedation and rocuronium 50 mg IV. Dentures were removed. Laryngoscopy was performed with a 3 Co-commercial helicopter pilot blade and a grade I Cormack-Lehane view was obtained. On single attempt a size endotracheal tube was visualized passing through the cords. Correct placement was confirmed with colorimetric CO2 detector. Breath sounds were equal bilaterally. No sounds auscultated over the stomach. The endotracheal tube was secured with a commercial tube valdivia at a depth of 24 cm at the lips. The patient was connected to the ventilator. The patient tolerated the procedure well without any apparent complication. Oxygen saturations were maintained greater than 90% at all times. Stat chest x-ray was ordered and demonstrated tube in takeoff R mainstem, retracted to 21 cm. Ayaka Chan MD Dec 04, 2017 01:55
[2017-12-04] MEDS ORDERED: PROPOFOL 500 MG/50 ML INJ 50 ML ONE (02:00)
--- NOTE | 2017-12-04 02:05 | RADRPT ---
EXAM DATE/TIME: 12/04/2017 01:38 [facility] COMPARISON: CHEST SINGLE AP, December 03, 2017, 23:15. INDICATIONS : E-T Tube placement. MEDICAL HISTORY : None. SURGICAL HISTORY : None. ENCOUNTER: Subsequent ACUITY: 3 days PAIN SCORE: Non-responsive. LOCATION: Bilateral chest FINDINGS: Single portable frontal view the chest shows the tip of the endotracheal tube 1 cm within the right m ainstem bronchus. Suggest retracting the endotracheal tube 3 cm. Right-sided central line. Tip at the mid right atrium. Nasogastric tube tip off inferior margin of the film. Lungs are clear. Heart is no rmal in size. CONCLUSION: 1. Endotracheal tube 1 cm within the right mainstem bronchus. Suggest retracting it approximately 3 c m. 2. Clear lungs. Jung Lundberg Jr., MD on December 04, 2017 at 2:03 Board Certified Radiologist. This report was verified electronically.
[2017-12-04] MEDS: PROPOFOL 1000 MG/100 ML INJ 100 ML IV PRN ×2 (02:11→23:13)
[2017-12-04] MEDS: PANTOPRAZOLE SODIUM 40 MG VIAL IV PUSH SCH ×2 (02:19→13:54)
[2017-12-04] MEDS ORDERED: IOHEXOL 350 MG/ML 10 ML VIAL (for RAD DIAG) IVCONTRAST ONE (03:07)
--- NOTE | 2017-12-04 03:23 | RADRPT ---
EXAM DATE/TIME: 12/04/2017 02:42 [facility] COMPARISON: CT ABDOMEN & PELVIS W CONTRAST, December 01, 2017, 8:35. INDICATIONS : Hypotensive post biliary stent placement today. IV CONTRAST: 95 cc Omnipaque 350 (iohexol) IV ORAL CONTRAST: No oral contrast ingested. RADIATION DOSE: 13.38 CTDIvol (mGy) MEDICAL HISTORY : Renal calculi. SURGICAL HISTORY : Bilary stent. ENCOUNTER: Initial ACUITY: 1 day PAIN SCALE: Non-responsive LOCATION: Bilateral abdomen TECHNIQUE: Volumetric scanning of the abdomen and pelvis was performed. Using automated exposure control and ad justment of the mA and/or kV according to patient size, radiation dose was kept as low as reasonably achievable to obtain optimal diagnostic quality images. DICOM format image data is available electro nically for review and comparison. FINDINGS: LOWER LUNGS: The visualized lower lungs are clear. LIVER: Since the previous examination there has been placement of an internal/external biliary drainage cath eter via right mid axillary line approach. The catheter is in good position. Contrast is seen through out the intrahepatic biliary tree most pronounced within the left lobe. Hemorrhage is seen adjacent t o the liver. Differing enhancement involve the right lobe is unchanged. SPLEEN: Normal size without lesion. PANCREAS: Within normal limits. KIDNEYS: Normal in size and shape. There is no mass, stone or hydronephrosis. ADRENAL GLANDS: Within normal limits. VASCULAR: There is no aortic aneurysm. BOWEL/MESENTERY: The stomach, small bowel, and colon demonstrate no acute abnormality. There is no free intraperitone al air or fluid. ABDOMINAL WALL: Within normal limits. RETROPERITONEUM: There is no lymphadenopathy. BLADDER: Totally decompressed with Carmona balloon present. REPRODUCTIVE: Within normal limits. INGUINAL: There is no lymphadenopathy or hernia. MUSCULOSKELETAL: Interspinous cages in the lower lumbar spine. CONCLUSION: 1. Moderate volume hemoperitoneum. 2. Interval placement of a right internal/external biliary drainage catheter. This is in good positio n. Jung Lundberg Jr., MD on December 04, 2017 at 3:17 Board Certified Radiologist. This report was verified electronically.
[2017-12-04] MEDS ORDERED: CALCIUM CHLORIDE INJ 1 GM in SODIUM CHLORIDE 0.9% INJ 100 ML IV ONE (03:45)
[2017-12-04 04:02] LABS: AUTOMATED NEUTROPHIL # 25.2 TH/MM3 (1.8-7.7); BASOPHIL # 0.1 TH/MM3 (0-0.2); BASOPHIL % 0.2 % (0.0-2.0); HEMATOCRIT 37.4 % (39.0-51.0); HEMOGLOBIN 12.3 GM/DL (13.0-17.0); LYMPH % 2.4 % (9.0-44.0); LYMPHOCYTE # 0.8 TH/MM3 (1.0-4.8); MEAN CELL VOLUME 87.9 FL (80.0-100.0); MEAN CORPUSCULAR HEMOGLOBIN 28.9 PG (27.0-34.0); MEAN CORPUSCULAR HGB CONC 32.9 % (32.0-36.0); MEAN PLATELET VOLUME 11.4 FL (7.0-11.0); MONO % 17.4 % (0.0-8.0); MONOCYTE # 5.5 TH/MM3 (0-0.9); PLATELET COUNT 92 TH/MM3 (150-450); RED BLOOD COUNT 4.26 MIL/MM3 (4.50-5.90); RED CELL DISTRIBUTION WIDTH 16.4 % (11.6-17.2); WHITE BLOOD COUNT 31.5 TH/MM3 (4.0-11.0)
[2017-12-04] MEDS ORDERED: CALCIUM CHLORIDE 10% SOLN 1 GRAM/10 ML SYR ONE (04:17)
[2017-12-04] MEDS ORDERED: HEPARIN SODIUM - SQ 10,000 UNITS/ML VIAL ONE (04:22)
[2017-12-04] MEDS: FLUCONAZOLE 200 MG PREMIX BAG 100 ML IV SCH ×2 (04:30→23:14)
[2017-12-04 04:34] LABS: ALBUMIN 1.6 GM/DL (3.4-5.0); BICARBONATE 23.9 MEQ/L (21.0-32.0); CALCIUM 6.9 MG/DL (8.5-10.1); CALCIUM-PROTEIN CORRECTED 8.7 MG/DL (8.5-10.1); CREATININE 1.3 MG/DL (0.60-1.30); MAGNESIUM 1.8 MG/DL (1.5-2.5); PHOSPHORUS 4.2 MG/DL (2.5-4.9); TOTAL BILIRUBIN ADULT 5.4 MG/DL (0.2-1.0); TOTAL PROTEIN 3.9 GM/DL (6.4-8.2)
[2017-12-04 05:19] LABS: BANDS 4 % (0-6); LYMPHOCYTES 1 % (9-44); MONOCYTES 14 % (0-8); MYELOCYTES 2 % (0-0); NEUTROPHIL # MANUAL DIFF 26.8 TH/MM3 (1.8-7.7); POLYS (SEG NEUTROPHILS) 79 % (16-70)
[2017-12-04 05:20] LABS: TOXIC VACUOLATION PRESENT (NONE SEEN)
[2017-12-04 05:22] LABS: BURR CELLS 1+ (NORMAL)
[2017-12-04] MEDS ORDERED: BUPIVACAINE/EPINEPHRINE 0.25% PF 30 ML VIAL ONE (05:32)
[2017-12-04] MEDS: LEVOTHYROXINE SODIUM 112 MCG TAB PO SCH (06:00)
--- NOTE | 2017-12-04 06:49 | MB ---
cc: CYNTHIA ONEAL M.D. DATE OF STAT CONSULTATION 12/04/2017 REASON FOR CONSULTATION Hemoperitoneum status post biliary stenting. HISTORY OF PRESENT ILLNESS Mr. Rios is an 82-year-old patient who was in the [facility] early this morning in hypovolemic shock secondary to bleeding after a biliary procedure by Interventional Radiology yesterday. The patient was under the care of Dr. Ayaka Chan. Dr. Chan called me STAT for immediate evaluation. Apparently he had a biliary stent placed earlier today. He became hypotensive and hemodynamically unstable. Dr. Chan initiated aggressive fluid and blood product resuscitation. She intubated the patient, placed a central line and A-line and gave him a large volume of fluid and blood. The patient had persistent hypotension requiring pressor use and therefore she called me STAT to come evaluate the patient for ongoing bleeding. I arrived at the hospital within 20 minutes of being called. Patient being transported to OR immediately. PAST MEDICAL HISTORY 1. BPH. 2. Polymyalgia rheumatica. 3. Hyperlipidemia. PAST SURGICAL HISTORY He has had some back and neck surgery. MEDICATIONS Please see EMR. ALLERGIES He has no known drug allergies. SOCIAL HISTORY He is a former smoker and drinker but does not do either one of these. He is a [place] , lives here locally with his . FAMILY HISTORY Noncontributory. PHYSICAL EXAMINATION VITAL SIGNS: Temperature is 97, pulse is 110, blood pressure is 77/50, respiratory rate - he is intubated. GENERAL: This is an elderly gentleman, intubated in the [facility] who appears pale with a distended abdomen. HEENT: Pupils equal, round. Sclerae jaundiced. Oropharynx is clear and moist with endotracheal tube and orogastric tube in place. NECK: Supple. He has a right internal jugular central line. LUNGS: Clear to auscultation bilaterally. HEART: S1-S2. No murmur. Tachycardic. ABDOMEN: Grossly distended. He has a biliary drain in the right upper quadrant draining dark bile. EXTREMITIES: Free range of motion x4. NEUROLOGICAL: Sedated on vent, moves spontaneously. LABORATORY DATA Most recent labs show his hemoglobin was 9.4 after transfusion. Preprocedure his hemoglobin was 13. His white count is 27. His platelet count is 99. ABG shows acidosis. Imaging - STAT CT scan shows large volume hemoperitoneum around liver. His electrolytes are within normal limits at this time except for an elevated glucose of 252. His bilirubin is 5. His INR is 1.0. His blood gas shows a pH of 7.25 with base deficit of -7.5, hemoglobin on the gas was 11. IMPRESSION Hypovolemic hemorrhagic shock. PLAN He is going to the operating room immediately. This was discussed with the . She is agreeable. Operating room was notified and he will be transported immediately. Patient is high risk for complication, understands. Cynthia MD VALENCIA Oneal/SSB /6:16 AM /6:25 AM MTDLiv
--- NOTE | 2017-12-04 07:29 | MP ---
cc: CYNTHIA ONEAL M.D. DATE OF SURGERY 12/04/2017 PREOPERATIVE DIAGNOSIS Hemoperitoneum with hypovolemic shock, status post biliary stenting by Interventional Radiology. POSTOPERATIVE DIAGNOSES 1. Hemoperitoneum with hypovolemic shock, status post biliary stenting by Interventional Radiology. 2. 2 liters hemoperitoneum. 3. Capsular tear Segment of the liver. PROCEDURE PERFORMED 1. Exploratory laparotomy. 2. Control of liver laceration bleeding. SURGEON Cynthia Oneal MD ANESTHESIA General endotracheal. COMPLICATIONS None. FLUIDS, ESTIMATED BLOOD LOSS 2 liters. 500 cc by cell saver returned to patient. 1 unit FFP. 1 unit cryo. 1500 cc IV fluid. INDICATIONS FOR PROCEDURE Mr. Rios is an 82-year-old gentleman who underwent a biliary procedure yesterday but Interventional Radiology for a biliary stricture. Post-procedure he became hypotensive, unresponsive. He is transferred to the unit where he was intubated and aggressively resuscitated by Dr. Ayaka Chan. Despite aggressive medical resuscitation, the patient continued to have hypotension and hemodynamic instability. Surgical consultation was requested STAT and the patient was brought to the operating room immediately. Risks and benefits were discussed with the patient's and she was agreeable. INTRAOPERATIVE FINDINGS The patient had a capsular tear on Segment of the liver likely from an adhesion during the procedure. It was actively bleeding. We found a very large blood clot under the liver as well as about 1500 cc of free blood within the abdominal cavity itself. This was all evacuated. The liver laceration was controlled with Ponderay fabric and direct pressure. DETAILS The patient was identified, brought to the operating room, placed supine on the operating room table. After adequate general endotracheal anesthesia was achieved, the abdomen is prepped and draped in standard surgical fashion. The right upper quadrant was anesthetized with 0.25% Marcaine. A subcostal incision was made. Dissection was carried down through the subcutaneous tissue, through the abdominal wall musculature and into the abdominal cavity itself. A large amount of blood came forth when we opened the peritoneum. The cell saver device was used to evacuate the blood and the right upper quadrant was packed with laparotomy pads. Bookwalter retractor was then brought up. Attention was now directed to the right upper quadrant where the packs were slowly removed. We identified a liver laceration in Segment of the liver along the inferior border. This was immediately controlled with direct pressure. While we were holding pressure the rest of the liver was quickly examined. The drain was seen entering the lateral portion of the liver and there was no gross bleeding from the drain entry site. We therefore redirected our attention to the liver laceration. There were some omental adhesions along the inferior border of the liver and these were taken down with electrocautery Bovie. The gallbladder was found be intact without gross disease. Attention was now direct to the liver laceration. First we packed the laceration internally with Surgicel. We then placed an Ponderay pad over top of this and then applied laparotomy pads. Approximately 5 minutes was allowed to pass. Once we did this the laparotomy pads were removed and there was no bleeding noted. The area was then repacked with laparotomy pads and the hemoperitoneum was evacuated out using the cell saver suction device. We retrieved about 1500 cc of gross blood and removed about 500 cc of large clot along the inferior border of the liver. Again the gallbladder was inspected and there was no obvious abnormality or bleeding. The hepatic flexure of the colon was inspected and there is no obvious injury during the entry to the abdominal cavity or from the dissection, removing the omentum from the underside of the liver. At this point we removed the laparotomy pads and they were completely dry. No bleeding was noted. Several minutes were allowed to pass and no blood came up from the right upper quadrant. At this point it felt comfortable and we controlled the bleeding. A 19-Kinyarwanda round drain was then placed in the right upper quadrant and it lay along the inferior border of the liver and the lateral border of the liver adjacent to the previous biliary drain. The omentum was then packed into the right upper quadrant where the Ponderay was in order to provide additional hemostasis. The wound was copiously irrigated with normal saline solution. Attention was now directed to closure. Closure was accomplished using a two-layer technique using a looped #1 PDS. The wound was copiously irrigated with each layer and then injected with additional local anesthetic. The skin was then closed with skin stapling device. The patient tolerated the procedure well and remained hemodynamically stable throughout the procedure and was transported back to the ICU in guarded condition. MD VALENCIA Tinajero/ANUM /6:22 AM /6:56 AM
[2017-12-04] MEDS: DOCUSATE SODIUM 50 MG/SENNA 8.6 MG TAB PO SCH ×2 (08:39→21:25)
[2017-12-04] MEDS: CHLORHEXIDINE 0.12% (ORAL KIT) 15 ML CUP MT SCH ×2 (08:39→19:40)
[2017-12-04 10:29] LABS: AUTOMATED NEUTROPHIL # 19.8 TH/MM3 (1.8-7.7); BASOPHIL % 0.1 % (0.0-2.0); HEMATOCRIT 34.9 % (39.0-51.0); HEMOGLOBIN 11.9 GM/DL (13.0-17.0); LYMPH % 3.9 % (9.0-44.0); MEAN CELL VOLUME 86.1 FL (80.0-100.0); MEAN CORPUSCULAR HEMOGLOBIN 29.3 PG (27.0-34.0); MONO % 15.5 % (0.0-8.0); MONOCYTE # 3.8 TH/MM3 (0-0.9); NEUT % 80.5 % (16.0-70.0); PLATELET COUNT 50 TH/MM3 (150-450); RED BLOOD COUNT 4.05 MIL/MM3 (4.50-5.90); RED CELL DISTRIBUTION WIDTH 16.6 % (11.6-17.2); WHITE BLOOD COUNT 24.6 TH/MM3 (4.0-11.0)
[2017-12-04 10:55] LABS: ALBUMIN 1.7 GM/DL (3.4-5.0); ALT (GPT) 97 U/L (12-78); AST (GOT) 138 U/L (15-37); BICARBONATE 26.8 MEQ/L (21.0-32.0); BLOOD UREA NITROGEN 17 MG/DL (7-18); CALCIUM 8.9 MG/DL (8.5-10.1); CHLORIDE 113 MEQ/L (98-107); CREATININE 1.03 MG/DL (0.60-1.30); GLOMERULAR FILTRATION RATE 69 ML/MIN (>89); GLUCOSE,RANDOM 169 MG/DL (74-106); SODIUM (NA) 147 MEQ/L (136-145)
[2017-12-04 10:56] LABS: ALKALINE PHOSPHATASE 103 U/L (45-117); TOTAL BILIRUBIN ADULT 5.8 MG/DL (0.2-1.0)
[2017-12-04] MEDS ORDERED: NORMOSOL R INJ 1,000 ML IV ONE (12:00)
[2017-12-04] MEDS ORDERED: LIDOCAINE HCL 1% PF 5 ML SYRINGE OTHER ONE (12:00)
[2017-12-04] MEDS ORDERED: LACTATED RINGER'S 1000 ML INJ 2,000 ML IV ONE (12:00)
[2017-12-04] MEDS ORDERED: ROCURONIUM INJ 50 MG/5 ML VIAL IV ONE (12:00)
[2017-12-04] MEDS ORDERED: PROPOFOL 200 MG/20 ML AMP IV ONE (12:00)
[2017-12-04] MEDS ORDERED: PHENYLEPH/NS 1000 MCG/10 ML SYR IV ONE (12:00)
[2017-12-04] MEDS ORDERED: ONDANSETRON HCL 4 MG/2 ML VIAL IV PUSH ONE (12:00)
--- NOTE | 2017-12-04 12:23 | HHI.FPPN ---
Subjective Remarks Mr. Feng is an 82 yo M who initially presented with jaundice and RUQ abdominal pain: Patient underwent a biliary drainage procedure per IR and subsequently developed a hemoperitoneum from liver laceration that required emergent Ex-lap and repair by Dr. Montero. The patient was very ill with high leukocytosis and hypotensive. The patient required IV fluids, pRBCs, and blood products. Patient was intubated. Patient is currently in ICU and and was sedated at the time of exam. was present and expressed gratitude for prompt care and response from team. His complexion was noted to be less prominent as far as jaundice as yesterday. Objective Vitals Vital Signs Date Time Temp Pulse Resp B/P (MAP) Pulse Ox O2 Delivery O2 Flow Rate FiO2 12/04/17 11:20 96.7 63 16 109/72 100 12/04/17 10:00 63 12/04/17 08:27 100 40 12/04/17 08:00 74 12/04/17 08:00 96.5 74 16 125/59 (81) 100 12/04/17 07:00 100 Mechanical Ventilator 40 12/04/17 06:40 100 40 12/04/17 04:00 97.3 80 16 143/71 (95) 98 12/04/17 04:00 98 12/04/17 02:00 88 12/04/17 01:45 100 100 12/04/17 00:55 100 100 12/04/17 00:13 97.3 111 24 167/59 92 12/04/17 00:00 98 12/03/17 23:45 97.3 110 26 108/57 93 12/03/17 23:30 97.3 121 20 77/50 (59) 95 12/03/17 23:30 121 77/50 12/03/17 22:00 100 Nasal Cannula 2.00 12/03/17 20:10 97.8 100 20 86/48 (61) 99 12/03/17 19:00 97 90/55 (67) 100 12/03/17 16:43 97 18 103/58 (73) 100 12/03/17 16:35 94 105/63 (77) 99 12/03/17 16:19 90 88/55 (66) 92 12/03/17 16:15 87 78/55 (63) 91 12/03/17 16:13 89 73/50 (58) 92 12/03/17 16:12 97 67/47 (54) 12/03/17 15:30 100 18 100/50 (67) 94 12/03/17 15:00 94 17 106/54 (71) 96 12/03/17 15:00 95 17 106/52 (70) 95 12/03/17 14:45 97.7 106 19 95/66 (76) 92 12/03/17 14:45 97.7 106 18 95/66 (76) 94 I/O 12/03/17 12/03/17 12/03/17 12/04/17 12/04/17 12/04/17 07:00 15:00 23:00 07:00 15:00 23:00 Intake Total 240 ml 240 ml 240 ml 5182 ml 6716 ml Output Total 50 ml 2300 ml 190 ml Balance 240 ml 240 ml 190 ml 2882 ml 6526 ml Intake Oral 240 ml 240 ml 240 ml IV Total 4494 ml Packed Cells 2400 ml 1500 ml FFP 394 ml 722 ml Cryoprecipitate 228 ml Blood Product IV Normal Saline Flush 660 ml Other 1500 ml Output Drainage Total 50 ml 190 ml Estimated Blood Loss 2000 ml Other 300 ml # Voids 3 2 2 # Bowel Movements 2 2 Result Diagram: 12/04/17 1000 12/04/17 1000 Other Results Laboratory Tests Test 12/04/17 00:05 12/04/17 01:25 12/04/17 03:37 12/04/17 04:18 Blood Gas Puncture Site ART LINE ART LINE ART LINE Blood Gas Patient Temperature 98.6 98.6 98.6 Blood Gas HCO3 11 mmol/L (22-26) 17 mmol/L (22-26) 19 mmol/L (22-26) Blood Gas Base Excess -16.4 mmol/L (-2-2) -9.5 mmol/L (-2-2) -7.5 mmol/L (-2-2) Blood Gas Oxygen Saturation 98 % (90-100) 98 % (90-100) 98 % (90-100) Arterial Blood pH 7.10 (7.380-7.420) 7.18 (7.380-7.420) 7.25 (7.380-7.420) Arterial Blood Partial Pressure CO2 39 mmHg (38-42) 48 mmHg (38-42) 44 mmHg (38-42) Arterial Blood Partial Pressure O2 323 mmHg (61-120) 471 mmHg (61-120) 543 mmHg (61-120) Arterial Blood Oxygen Content 12.4 Vol % (12.0-20.0) 16.4 Vol % (12.0-20.0) 19.9 Vol % (12.0-20.0) Arterial Blood Carboxyhemoglobin 0.6 % (0-4) 0.6 % (0-4) 1.3 % (0-4) Arterial Blood Methemoglobin 0.9 % (0-2) 0.8 % (0-2) 0.9 % (0-2) Blood Gas Hemoglobin 8.4 G/DL (12.0-16.0) 11.0 G/DL (12.0-16.0) 13.5 G/DL (12.0-16.0) Oxygen Delivery Device NRB VENT VENT Blood Gas Inspired Oxygen 100 % 100 % 100 % Blood Gas Ventilator Setting SEE COMMENTS SEE COMMENTS White Blood Count 31.5 TH/MM3 (4.0-11.0) Red Blood Count 4.26 MIL/MM3 (4.50-5.90) Hemoglobin 12.3 GM/DL (13.0-17.0) Hematocrit 37.4 % (39.0-51.0) Mean Corpuscular Volume 87.9 FL (80.0-100.0) Mean Corpuscular Hemoglobin 28.9 PG (27.0-34.0) Mean Corpuscular Hemoglobin Concent 32.9 % (32.0-36.0) Red Cell Distribution Width 16.4 % (11.6-17.2) Platelet Count 92 TH/MM3 (150-450) Mean Platelet Volume 11.4 FL (7.0-11.0) Neutrophils (%) (Auto) 80.0 % (16.0-70.0) Lymphocytes (%) (Auto) 2.4 % (9.0-44.0) Monocytes (%) (Auto) 17.4 % (0.0-8.0) Eosinophils (%) (Auto) 0.0 % (0.0-4.0) Basophils (%) (Auto) 0.2 % (0.0-2.0) Neutrophils # (Auto) 25.2 TH/MM3 (1.8-7.7) Lymphocytes # (Auto) 0.8 TH/MM3 (1.0-4.8) Monocytes # (Auto) 5.5 TH/MM3 (0-0.9) Eosinophils # (Auto) 0.0 TH/MM3 (0-0.4) Basophils # (Auto) 0.1 TH/MM3 (0-0.2) CBC Comment AUTO DIFF Differential Total Cells Counted 100 Neutrophils % (Manual) 79 % (16-70) Band Neutrophils % 4 % (0-6) Lymphocytes % 1 % (9-44) Monocytes % 14 % (0-8) Neutrophils # (Manual) 26.8 TH/MM3 (1.8-7.7) Myelocytes 2 % (0-0) Differential Comment FINAL DIFF MANUAL Toxic Vacuolation PRESENT (NONE SEEN) Platelet Estimate LOW (NORMAL) Platelet Morphology Comment ENLARGED (NORMAL) Jenn Cells 1+ (NORMAL) Blood Urea Nitrogen 19 MG/DL (7-18) Creatinine 1.30 MG/DL (0.60-1.30) Random Glucose 252 MG/DL (74-106) Total Protein 3.9 GM/DL (6.4-8.2) Albumin 1.6 GM/DL (3.4-5.0) Calcium Level 6.9 MG/DL (8.5-10.1) Phosphorus Level 4.2 MG/DL (2.5-4.9) Magnesium Level 1.8 MG/DL (1.5-2.5) Alkaline Phosphatase 144 U/L (45-117) Aspartate Amino Transf (AST/SGOT) 79 U/L (15-37) Alanine Aminotransferase (ALT/SGPT) 60 U/L (12-78) Total Bilirubin 5.4 MG/DL (0.2-1.0) Sodium Level 145 MEQ/L (136-145) Potassium Level 4.8 MEQ/L (3.5-5.1) Chloride Level 111 MEQ/L (98-107) Carbon Dioxide Level 23.9 MEQ/L (21.0-32.0) Anion Gap 10 MEQ/L (5-15) Estimat Glomerular Filtration Rate 53 ML/MIN (>89) Lactic Acid Level 4.0 mmol/L (0.4-2.0) Protein Corrected Calcium 8.7 MG/DL (8.5-10.1) Test 12/04/17 05:04 12/04/17 10:00 12/04/17 11:40 Blood Gas Puncture Site DRAWN IN OR Blood Gas Patient Temperature 98.6 Blood Gas HCO3 20 mmol/L (22-26) Blood Gas Base Excess -6.7 mmol/L (-2-2) Blood Gas Oxygen Saturation 98 % (90-100) Arterial Blood pH 7.21 (7.380-7.420) Arterial Blood Partial Pressure CO2 52 mmHg (38-42) Arterial Blood Partial Pressure O2 480 mmHg (61-120) Arterial Blood Oxygen Content 19.7 Vol % (12.0-20.0) Arterial Blood Carboxyhemoglobin 1.0 % (0-4) Arterial Blood Methemoglobin 1.1 % (0-2) Blood Gas Hemoglobin 13.5 G/DL (12.0-16.0) Oxygen Delivery Device OR Blood Gas Ventilator Setting OR Blood Gas Inspired Oxygen 95 % White Blood Count 24.6 TH/MM3 (4.0-11.0) Red Blood Count 4.05 MIL/MM3 (4.50-5.90) Hemoglobin 11.9 GM/DL (13.0-17.0) Hematocrit 34.9 % (39.0-51.0) Mean Corpuscular Volume 86.1 FL (80.0-100.0) Mean Corpuscular Hemoglobin 29.3 PG (27.0-34.0) Mean Corpuscular Hemoglobin Concent 34.0 % (32.0-36.0) Red Cell Distribution Width 16.6 % (11.6-17.2) Platelet Count 50 TH/MM3 (150-450) Mean Platelet Volume 11.0 FL (7.0-11.0) Neutrophils (%) (Auto) 80.5 % (16.0-70.0) Lymphocytes (%) (Auto) 3.9 % (9.0-44.0) Monocytes (%) (Auto) 15.5 % (0.0-8.0) Eosinophils (%) (Auto) 0.0 % (0.0-4.0) Basophils (%) (Auto) 0.1 % (0.0-2.0) Neutrophils # (Auto) 19.8 TH/MM3 (1.8-7.7) Lymphocytes # (Auto) 1.0 TH/MM3 (1.0-4.8) Monocytes # (Auto) 3.8 TH/MM3 (0-0.9) Eosinophils # (Auto) 0.0 TH/MM3 (0-0.4) Basophils # (Auto) 0.0 TH/MM3 (0-0.2) CBC Comment AUTO DIFF Differential Comment AUTO DIFF CONFIRMED Blood Urea Nitrogen 17 MG/DL (7-18) Creatinine 1.03 MG/DL (0.60-1.30) Random Glucose 169 MG/DL (74-106) Total Protein 4.0 GM/DL (6.4-8.2) Albumin 1.7 GM/DL (3.4-5.0) Calcium Level 8.9 MG/DL (8.5-10.1) Alkaline Phosphatase 103 U/L (45-117) Aspartate Amino Transf (AST/SGOT) 138 U/L (15-37) Alanine Aminotransferase (ALT/SGPT) 97 U/L (12-78) Total Bilirubin 5.8 MG/DL (0.2-1.0) Sodium Level 147 MEQ/L (136-145) Potassium Level 3.6 MEQ/L (3.5-5.1) Chloride Level 113 MEQ/L (98-107) Carbon Dioxide Level 26.8 MEQ/L (21.0-32.0) Anion Gap 7 MEQ/L (5-15) Estimat Glomerular Filtration Rate 69 ML/MIN (>89) Imaging Last Impressions Chest X-Ray 12/04/17 0000 Signed Impressions: Service Date/Time: December 01:38 - CONCLUSION: 1. Endotracheal tube 1 cm within the right mainstem bronchus. Suggest retracting it approximately 3 cm. 2. Clear lungs. Jung Lundberg Jr., MD Abdomen X-Ray [id number] Signed Impressions: Service Date/Time: Sunday, December 03, 2017 18:15 - CONCLUSION: Nonspecific abdomen. K. Gurvinder Jean MD Bile Duct Drainage 12/03/17 0000 Signed Impressions: Service Date/Time: Sunday, December 03, 2017 14:10 - CONCLUSION: Uncomplicated biliary stent placement as above. Bj Hurtado MD Abdomen/Pelvis CT 12/03/17 0000 Signed Impressions: Service Date/Time: December 02:42 - CONCLUSION: 1. Moderate volume hemoperitoneum. 2. Interval placement of a right internal/external biliary drainage catheter. This is in good position. Jung Lundberg Jr., MD Cholangiopancreatography MRI 12/02/17 0000 Signed Impressions: Service Date/Time: Saturday, December 02, 2017 08:17 - CONCLUSION: 1. Significant dilatation of the intrahepatic ducts ending at the confluence and possibility of stricture at this site or a Klatskin's tumor which is not visualized should be entertained. 2. Wedge-shaped focal fat right hepatic lobe. K. Gurvinder Jean MD Abdomen Ultrasound 12/01/17 0000 Signed Impressions: Service Date/Time: Friday, December 01, 2017 11:49 - CONCLUSION: 1. Intrahepatic biliary duct dilatation better seen on the CT examination. A lesion at the biliary duct confluence/common hepatic duct region still needs to be suspected. An ERCP or MRCP could be used to further evaluate this region. 2. Suspected area of focal hepatic steatosis at the anterior segment right lobe of the liver. 3. Gallstones Landry Zarate MD Objective Remarks Physical Exam GEN: sedated, NAD, laying in bed intubated CV: RRR no rubs, gallops, or murmurs appreciated. equal, strong pulses bilaterally. Resp: CTA bilaterally, no wheezes, rhonchi, or rales noted. Abdomen: soft, nontender no distension. no fluid wave appreciated. exam limited by level of sedation. Skin: mild jaundice that has decreased in intensity and extension. less pronounced than yesterday. Medications and IVs Current Medications Medications (Trade) Dose Ordered Sig/Rafa Route PRN Reason Start Time Stop Time Status Last Admin Dose Admin Sodium Chloride (NS Flush) 2 ml UNSCH PRN IV FLUSH FLUSH AFTER USING IV ACCESS 12/01/17 11:00 Sodium Chloride (NS Flush) 2 ml BID IV FLUSH 12/01/17 21:00 12/04/17 08:39 Ondansetron HCl (Zofran Inj) 4 mg Q6H PRN IVP NAUSEA OR VOMITING 12/01/17 11:00 12/03/17 20:00 Acetaminophen/ Hydrocodone Bitart ([place] 5-325 Mg) 1 tab Q4H PRN PO PAIN SCALE 3 TO 5 12/01/17 11:00 Acetaminophen/ Hydrocodone Bitart ([place] 10-325 Mg) 1 tab Q4H PRN PO PAIN SCALE 6 TO 10 12/01/17 11:00 Naloxone HCl (Narcan Inj) 0.4 mg UNSCH PRN IV PUSH SEE LABEL COMMENTS 12/01/17 11:00 Senna/Docusate Sodium (Deedee-Colace) 1 tab BID PO 12/01/17 21:00 12/04/17 08:39 Magnesium Hydroxide (Milk Of Magnesia Liq) 30 ml Q12H PRN PO Mild constipation 12/01/17 11:00 12/02/17 16:20 Sennosides (Senokot) 17.2 mg Q12H PRN PO Moderate constipation 12/01/17 11:00 Bisacodyl (Dulcolax Supp) 10 mg DAILY PRN RECTAL SEVERE CONSITIPATION 12/01/17 11:00 Lactulose (Lactulose Liq) 30 ml DAILY PRN PO SEVERE CONSITIPATION 12/01/17 11:00 Finasteride (Proscar) 5 mg DAILY PO 12/02/17 09:00 Future Hold Levothyroxine Sodium (Synthroid) 112 mcg DAILY@0600 PO 12/02/17 06:00 12/03/17 05:13 Prednisone (Deltasone) 5 mg DAILY PO 12/02/17 09:00 Future Hold Piperacillin Sod/ Tazobactam Sod 50 ml @ 100 mls/hr Q6H IV 12/01/17 16:00 12/04/17 08:39 Vancomycin HCl 1200 mg/Sodium Chloride 262 ml @ 250 mls/hr Q12H IV 12/03/17 23:00 12/04/17 10:18 Phenylephrine HCl 40 mg/Dextrose 500 ml @ 30 mls/hr TITRATE PRN IV Blood pressure management 12/03/17 22:15 12/03/17 23:30 Terbutaline Sulfate (Brethine Inj) 1 mg UNSCH PRN SQ For Extravasation 12/03/17 22:15 Sodium Chloride 250 ml @ 15 mls/hr ONCE ONCE IV 12/03/17 22:15 12/04/17 14:54 Fluconazole/ Sodium Chloride 100 ml @ 100 mls/hr Q24H IV 12/04/17 00:00 12/04/17 04:30 Hydrocortisone Sodium Succinate (SoluCORTEF INJ) 100 mg Q8HR IV PUSH 1/4/18 00:30 12/04/17 07:02 Sodium Bicarbonate 150 meq/Dextrose 1,150 ml @ 100 mls/hr [id number] IV 12/04/17 00:30 12/04/17 01:31 Sodium Chloride 250 ml @ 15 mls/hr ONCE ONCE IV 12/04/17 01:30 12/04/17 18:09 Chlorhexidine Gluconate (Peridex 0.12% Liq) 15 ml BID@08,20 MT 12/04/17 08:00 12/04/17 08:39 Fentanyl Citrate 250 ml @ 5 mls/hr TITRATE PRN IV SEDATION 12/04/17 01:30 12/04/17 02:11 Pantoprazole Sodium (Protonix Inj) 40 mg Q12H IV PUSH 12/04/17 02:00 12/04/17 02:19 Propofol 100 ml @ 2.4 mls/hr TITRATE PRN IV SEDATION 12/04/17 02:00 12/04/17 02:11 Sodium Chloride 250 ml @ 15 mls/hr ONCE ONCE IV 12/04/17 04:00 12/04/17 20:39 Sodium Chloride 250 ml @ 15 mls/hr ONCE ONCE IV 12/04/17 04:15 12/04/17 20:54 Sodium Chloride 250 ml @ 15 mls/hr ONCE ONCE IV 12/04/17 04:15 12/04/17 20:54 Urinary Catheter: Yes Vascular Central Line Catheter: Yes A/P Assessment and Plan 82 yo male with h/o PMR, BPH, hyperlipidemia presenting with: Problem List: (1) Liver hemorrhage ICD Codes: K76.89 - Other specified diseases of liver Status: Acute Plan: from procedure for dilated duct in liver, s/p surgery on the to repair the liver and stop bleeding. stable now. appreciate help from Dr Montero and Intensivists (2) Abdominal pain ICD Codes: R10.9 - Unspecified abdominal pain Status: Acute Plan: Sudden onset abdominal pain worst in RUQ - has since progressed to tenderness to deep palpation, minimal pain. CT findings as above Significant leukocytosis on admission initially improved with Zosyn UA with hematuria, many WBC on admission Item Value Date Time Tumor Marker Alpha Fetoprotein 1.9 NG/ML 12/02/17 0724 Carcinoembryonic Antigen 1.0 NG/ML 12/02/17 0724 CA 19-9 Antigen 85.0 U/ML H 12/02/17 0724 Differential including malignancy, choledocholithiasis, cholecystitis, kidney stone, UTI - Currently in ICU - care coordinated with GI, surgery, ICU, and FM Med team A. - Zosyn 3.375 Q6H IV for to cover UTI, abdominal pathogens initially - Diet can be advanced per surgery when he is ready - f/u outpatient pending GI diagnostic impression. (3) Polymyalgia rheumatica ICD Codes: M35.3 - Polymyalgia rheumatica Status: Chronic Plan: Pain stable, was on 5 mg of prednisone which is enough to suppress his adrenals. he is on some stress dose steroids to help him with his current problems but he can likely be weaned back down to 5 mg once this crisis is over (4) BPH (benign prostatic hyperplasia) ICD Codes: N40.0 - Benign prostatic hyperplasia without lower urinary tract symptoms Status: Chronic Plan: Symptoms currently well controlled, continue home finasteride as tolerated (5) Hypothyroidism ICD Codes: E03.9 - Hypothyroidism, unspecified Status: Chronic Plan: Continue home Synthroid (6) Urinary tract infection in male ICD Codes: N39.0 - Urinary tract infection, site not specified Status: Acute Plan: Has h/o UTIs in past ?complication with renal stone, very small (1-2 mm) - Strained urine to look for stone - urine is staph epidermitis sensitive to almost everything - Coverage with Zosyn as above, now on vanc as well (7) FEN/PPX Plan: Fluids: per surgery and Respiratory Services Manager Electrolytes: Monitor and replace PRN, should be on ICU protocol Nutrition: Diet regular basic once able to start eating again DVT: Lovenox 40 mg SQ daily - held yesterday since plts <100k and patient was ambulating. will not resume until he is healed GI: Home PPI PRN for heartburn Dispo: admitted. will be here for days as he may need additional surgery Problem Qualifiers (1) Abdominal pain: Qualified Codes: R10.11 - Right upper quadrant pain (2) BPH (benign prostatic hyperplasia): Qualified Codes: N40.0 - Benign prostatic hyperplasia without lower urinary tract symptoms (3) Hypothyroidism: Qualified Codes: E03.9 - Hypothyroidism, unspecified [place] MD Dec 04, 2017 12:23
--- NOTE | 2017-12-04 15:42 | HHI.CCPN ---
Subjective Remarks/Hospital Course 82-year-old male with past history of BPH, hyperlipidemia, PMR who is admitted to [facility] 12/01/17 with right upper quadrant abdominal pain and jaundice. LFTs were elevated in an obstructive pattern. CT demonstrated intrahepatic biliary duct dilatation. A mass was not clearly seen. 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 He underwent percutaneous biliary stent placement and drain by interventional radiology 12/03/17 (Dr. Hurtado). He was hypotensive post procedure and this was initially managed by family service aide with 1.5 L fluid resuscitation and stress dose steroids, abx for possible biliary sepsis. Hypotension persisted and he was transferred to ICU with critical care medicine consult. When I went to evaluate the patient he appeared pale with cool skin concerning for hemorrhagic shock. CBC demonstrated leukocytosis 27.5 and hemoglobin was 9.4 from a baseline of 13. Place central line and art line, started neosynephrine, began transfusing blood products until appropriately stabilized for transition to CT scanner. CT scan demonstrated moderate hemoperitoneum with hemorrhage adjacent to the liver. The biliary drain was in good position. Called Dr. Montero who will take patient to OR for emergent laparotomy. agreeable to risks of surgery. Upon transition to OR he had received PRBC 7 units, 2 units FFP and 1 gram calcium chloride with 1 more unit of FFP, 1 unit platelets, 1 unit cryo ready to transfuse. 12/04/17: Status post exploratory laparotomy and control of liver laceration bleeding by Dr. montero, findinL hemoperitoneum, Capsular tear Segment of the liver. Remains on Chas-Synephrine at 50 mcg/m. Repeat lab work showed platelet count of 50 hemoglobin of 11.9. Platelet transfusion ordered. at the bedside Objective Vital Signs Date Time Temp Pulse Resp B/P (MAP) Pulse Ox O2 Delivery O2 Flow Rate FiO2 12/04/17 14:00 64 12/04/17 12:36 100 40 12/04/17 12:00 96.7 16 110/54 (72) 12/04/17 07:00 Mechanical Ventilator 12/03/17 22:00 2.00 Intake and Output 12/04/17 12/04/17 12/05/17 08:00 16:00 00:00 Intake Total 5082 ml 7331 ml Output Total 2300 ml 190 ml Balance 2782 ml 7141 ml Result Diagram: 12/04/17 1000 12/04/17 1000 Other Results Laboratory Tests Test 12/03/17 22:55 12/04/17 00:05 12/04/17 01:25 12/04/17 04:18 Blood Gas Puncture Site CENTRAL LINE ART LINE ART LINE ART LINE Blood Gas Patient Temperature 98.6 98.6 98.6 98.6 Venous Blood pH 7.17 (7.360-7.400) Venous Blood Partial Pressure CO2 53 mmHg (44-48) Venous Blood Partial Pressure O2 32 mmHg (35-40) Venous Blood HCO3 19 mmol/L (22-26) Venous Blood Oxygen Saturation 45 % (70-76) Venous Blood Oxygen Content 5.4 Vol % (9.0-17.0) Venous Blood Base Excess -8.4 mmol/L (-2-2) Oxygen Delivery Device NASAL CANNULA NRB VENT VENT Blood Gas Liter Flow 2 L/M Blood Gas HCO3 11 mmol/L (22-26) 17 mmol/L (22-26) 19 mmol/L (22-26) Blood Gas Base Excess -16.4 mmol/L (-2-2) -9.5 mmol/L (-2-2) -7.5 mmol/L (-2-2) Blood Gas Oxygen Saturation 98 % (90-100) 98 % (90-100) 98 % (90-100) Arterial Blood pH 7.10 (7.380-7.420) 7.18 (7.380-7.420) 7.25 (7.380-7.420) Arterial Blood Partial Pressure CO2 39 mmHg (38-42) 48 mmHg (38-42) 44 mmHg (38-42) Arterial Blood Partial Pressure O2 323 mmHg (61-120) 471 mmHg (61-120) 543 mmHg (61-120) Arterial Blood Oxygen Content 12.4 Vol % (12.0-20.0) 16.4 Vol % (12.0-20.0) 19.9 Vol % (12.0-20.0) Arterial Blood Carboxyhemoglobin 0.6 % (0-4) 0.6 % (0-4) 1.3 % (0-4) Arterial Blood Methemoglobin 0.9 % (0-2) 0.8 % (0-2) 0.9 % (0-2) Blood Gas Hemoglobin 8.4 G/DL (12.0-16.0) 11.0 G/DL (12.0-16.0) 13.5 G/DL (12.0-16.0) Blood Gas Inspired Oxygen 100 % 100 % 100 % Blood Gas Ventilator Setting SEE COMMENTS SEE COMMENTS Test 12/04/17 05:04 Blood Gas Puncture Site DRAWN IN OR Blood Gas Patient Temperature 98.6 Blood Gas HCO3 20 mmol/L (22-26) Blood Gas Base Excess -6.7 mmol/L (-2-2) Blood Gas Oxygen Saturation 98 % (90-100) Arterial Blood pH 7.21 (7.380-7.420) Arterial Blood Partial Pressure CO2 52 mmHg (38-42) Arterial Blood Partial Pressure O2 480 mmHg (61-120) Arterial Blood Oxygen Content 19.7 Vol % (12.0-20.0) Arterial Blood Carboxyhemoglobin 1.0 % (0-4) Arterial Blood Methemoglobin 1.1 % (0-2) Blood Gas Hemoglobin 13.5 G/DL (12.0-16.0) Oxygen Delivery Device OR Blood Gas Ventilator Setting OR Blood Gas Inspired Oxygen 95 % Objective Remarks GENERAL: Pale appearing male, intubated heavily sedated. SKIN: Cool to touch HEAD: Atraumatic. Normocephalic. EYES: Pupils equal and round. Pallor+ ENT: No nasal bleeding or discharge. Mucous membranes pale NECK: Trachea midline. Jugular veins flat CARDIOVASCULAR: Tachycardic, regular. No murmurs rubs or gallops. On Chas- Synephrine infusion RESPIRATORY: Intubated at entry equal bilaterally. No wheezes rales or rhonchi. GASTROINTESTINAL: Midline laparotomy dressing intact. Biliary and peritoneal drain in place MUSCULOSKELETAL: Extremities without clubbing, cyanosis, or edema. NEUROLOGICAL: Intubated heavily sedated. Repeat withdrawal to pain. No eye opening or following of commands A/P Assessment and Plan NEURO: Fentanyl, propofol for sedation and vent synchrony Daily sedation vacation RESP: Acute respiratory failure with metabolic and respiratory acidemia Intubated due to severe metabolic acidemia and need to transition to OR for hemorrhage. Ventilator bundle No vent weaning until hemodynamically stabilized CV: Hemorrhagic shock Art line for hemodynamic monitoring. Monitor CBC. Monitor coags. Transfuse based on hemodynamics Chas-Synephrine as needed to maintain mean arterial pressure greater than 65 Stress dose steroids as per below Status post multiple blood and blood product transfusion as below GI: Intrahepatic biliary obstruction status post biliary stent and drain 12/03/16 ( Dr. Hurtado) Liver laceration with hemoperitoneum Nothing by mouth. s/p OR ex lap with Dr. Montero, and control of bleeding from liver capsular laceration GI following for biliary obstruction ?tumor Elevated a 19-9 FEN/RENAL: Severe metabolic acidemia secondary to acute blood loss Acute kidney injury BPH Initial ABG 7.10/PACO2 39/PaO2 323 with base deficit -16. Improved ollowing resuscitation. Bicarb [id number] MEQ @ 100 ml/hr [place]. Monitor intake and output. Monitor electrolyte. Replace electrolytes as indicated per replacement protocol Gave calcium chloride 1 g IV Hold Proscar due to hypotension ID: Leukocytosis - may be reactive secondary to acute hemorrhage. Initially concerned for concomitant sepsis or bacteremia s/p biliary stent, therefore obtained repeat blood cultures, biliary culture. On zosyn, continued vancomycin that was added by family service aide, added fluconazole. Will narrow abx as appropriate based on cultures. HEME: Acute blood loss anemia Thrombocytopenia Transfused 7 units packed red cells, 3 units FFP,, 1 unit cryo on 12/03 - 12/04 Serial CBC and recheck coags. 1 unit of platelet also given ENDO: Hypothyroidism Continue Synthroid 112 g by mouth daily Chronic prednisone Hydrocortisone 100 mg IV every 8 hours PROPH: SCDs for DVT prophylaxis. Hold Lovenox due to acute hemorrhage. Protonix 40 mg IV q12 until able to r/o GI source of bleeding. ACCESS: Right IJ central venous line placed 12/03/17 #2. Left femoral art line placed 12/03/17 #2. CCT 40 minutes exclusive of separately billable procedures. Time spent at bedside actively were resuscitating patient with blood products and pressors. Nettie Alatorre MD Dec 04, 2017 15:42
[2017-12-04 17:46] LABS: HEMATOCRIT 32.1 % (39.0-51.0); MEAN CELL VOLUME 85.1 FL (80.0-100.0); MEAN CORPUSCULAR HEMOGLOBIN 29.2 PG (27.0-34.0); MEAN CORPUSCULAR HGB CONC 34.3 % (32.0-36.0); MEAN PLATELET VOLUME 9.4 FL (7.0-11.0); PLATELET COUNT 89 TH/MM3 (150-450); RED BLOOD COUNT 3.78 MIL/MM3 (4.50-5.90); RED CELL DISTRIBUTION WIDTH 16.2 % (11.6-17.2); WHITE BLOOD COUNT 31.7 TH/MM3 (4.0-11.0)
--- NOTE | 2017-12-04 21:21 | HHI.GIFU ---
Subjective Remarks s/p placement biliary drain by IR, subsequently went to OR for bleed. s/p ex lap, control liver laceration bleed. at bedside. Delayed entry, pt seen with Dr Malone @ 1700. Objective Vitals I&O Vital Signs Date Time Temp Pulse Resp B/P (MAP) Pulse Ox O2 Delivery O2 Flow Rate FiO2 12/04/17 19:32 100 40 12/04/17 19:00 100 Mechanical Ventilator 2.00 40 12/04/17 18:00 67 12/04/17 16:00 97.7 78 16 107/50 (69) 100 12/04/17 16:00 66 12/04/17 15:46 100 40 12/04/17 14:00 64 12/04/17 12:36 100 40 12/04/17 12:00 96.7 78 16 110/54 (72) 100 12/04/17 12:00 63 12/04/17 11:20 96.7 63 16 109/72 100 12/04/17 10:00 63 12/04/17 08:27 100 40 12/04/17 08:00 74 12/04/17 08:00 96.5 74 16 125/59 (81) 100 12/04/17 07:00 100 Mechanical Ventilator 40 12/04/17 06:40 100 40 12/04/17 04:00 97.3 80 16 143/71 (95) 98 12/04/17 04:00 98 12/04/17 02:00 88 12/04/17 01:45 100 100 12/04/17 00:55 100 100 12/04/17 00:13 97.3 111 24 167/59 92 12/04/17 00:00 98 12/03/17 23:45 97.3 110 26 108/57 93 12/03/17 23:30 97.3 121 20 77/50 (59) 95 12/03/17 23:30 121 77/50 12/03/17 22:00 100 Nasal Cannula 2.00 I/O 12/03/17 12/03/17 12/03/17 12/04/17 12/04/17 12/04/17 07:00 15:00 23:00 07:00 15:00 23:00 Intake Total 240 ml 240 ml 240 ml 5182 ml 7331 ml 300 ml Output Total 50 ml 2300 ml 190 ml 1305 ml Balance 240 ml 240 ml 190 ml 2882 ml 7141 ml -1005 ml Intake Oral 240 ml 240 ml 240 ml IV Total 4806 ml Packed Cells 2400 ml 1500 ml FFP 394 ml 722 ml Platelets 283 ml 300 ml Cryoprecipitate 228 ml Blood Product IV Normal Saline Flush 660 ml 20 ml Other 1500 ml Output Urine Total 600 ml Gastric Drainage Total 415 ml Drainage Total 50 ml 190 ml 290 ml Estimated Blood Loss 2000 ml Other 300 ml # Voids 3 2 2 # Bowel Movements 2 2 1 Laboratory Laboratory Tests Test 12/03/17 20:54 12/03/17 22:55 12/03/17 23:09 12/04/17 00:05 White Blood Count 27.5 Red Blood Count 3.22 Hemoglobin 9.4 Hematocrit 29.5 Mean Corpuscular Volume 91.8 Mean Corpuscular Hemoglobin 29.2 Mean Corpuscular Hemoglobin Concent 31.9 Red Cell Distribution Width 17.8 Platelet Count 135 Mean Platelet Volume 11.9 Haptoglobin 141 Blood Urea Nitrogen 18 Creatinine 1.31 Random Glucose 148 Total Protein 5.1 Albumin 2.0 Calcium Level 8.1 Alkaline Phosphatase 210 Aspartate Amino Transf (AST/SGOT) 69 Alanine Aminotransferase (ALT/SGPT) 62 Total Bilirubin 6.2 Sodium Level 145 Potassium Level 4.0 Chloride Level 111 Carbon Dioxide Level 24.6 Anion Gap 9 Estimat Glomerular Filtration Rate 53 Lactic Acid Level 3.8 Lactate Dehydrogenase 141 Blood Gas Puncture Site CENTRAL LINE ART LINE Blood Gas Patient Temperature 98.6 98.6 Venous Blood pH 7.17 Venous Blood Partial Pressure CO2 53 Venous Blood Partial Pressure O2 32 Venous Blood HCO3 19 Venous Blood Oxygen Saturation 45 Venous Blood Oxygen Content 5.4 Venous Blood Base Excess -8.4 Oxygen Delivery Device NASAL CANNULA NRB Blood Gas Liter Flow 2 Prothrombin Time 10.6 Prothromb Time International Ratio 1.0 Activated Partial Thromboplast Time 21.6 Fibrinogen 317 Blood Gas HCO3 11 Blood Gas Base Excess -16.4 Blood Gas Oxygen Saturation 98 Arterial Blood pH 7.10 Arterial Blood Partial Pressure CO2 39 Arterial Blood Partial Pressure O2 323 Arterial Blood Oxygen Content 12.4 Arterial Blood Carboxyhemoglobin 0.6 Arterial Blood Methemoglobin 0.9 Blood Gas Hemoglobin 8.4 Blood Gas Inspired Oxygen 100 Test 12/04/17 01:25 12/04/17 03:37 12/04/17 04:18 12/04/17 05:04 Blood Gas Puncture Site ART LINE ART LINE DRAWN IN OR Blood Gas Patient Temperature 98.6 98.6 98.6 Blood Gas HCO3 17 19 20 Blood Gas Base Excess -9.5 -7.5 -6.7 Blood Gas Oxygen Saturation 98 98 98 Arterial Blood pH 7.18 7.25 7.21 Arterial Blood Partial Pressure CO2 48 44 52 Arterial Blood Partial Pressure O2 471 543 480 Arterial Blood Oxygen Content 16.4 19.9 19.7 Arterial Blood Carboxyhemoglobin 0.6 1.3 1.0 Arterial Blood Methemoglobin 0.8 0.9 1.1 Blood Gas Hemoglobin 11.0 13.5 13.5 Oxygen Delivery Device VENT VENT OR Blood Gas Ventilator Setting SEE COMMENTS SEE COMMENTS OR Blood Gas Inspired Oxygen 100 100 95 White Blood Count 31.5 Red Blood Count 4.26 Hemoglobin 12.3 Hematocrit 37.4 Mean Corpuscular Volume 87.9 Mean Corpuscular Hemoglobin 28.9 Mean Corpuscular Hemoglobin Concent 32.9 Red Cell Distribution Width 16.4 Platelet Count 92 Mean Platelet Volume 11.4 Neutrophils (%) (Auto) 80.0 Lymphocytes (%) (Auto) 2.4 Monocytes (%) (Auto) 17.4 Eosinophils (%) (Auto) 0.0 Basophils (%) (Auto) 0.2 Neutrophils # (Auto) 25.2 Lymphocytes # (Auto) 0.8 Monocytes # (Auto) 5.5 Eosinophils # (Auto) 0.0 Basophils # (Auto) 0.1 CBC Comment AUTO DIFF Differential Total Cells Counted 100 Neutrophils % (Manual) 79 Band Neutrophils % 4 Lymphocytes % 1 Monocytes % 14 Neutrophils # (Manual) 26.8 Myelocytes 2 Differential Comment FINAL DIFF MANUAL Toxic Vacuolation PRESENT Platelet Estimate LOW Platelet Morphology Comment ENLARGED Meridian Cells 1+ Blood Urea Nitrogen 19 Creatinine 1.30 Random Glucose 252 Total Protein 3.9 Albumin 1.6 Calcium Level 6.9 Phosphorus Level 4.2 Magnesium Level 1.8 Alkaline Phosphatase 144 Aspartate Amino Transf (AST/SGOT) 79 Alanine Aminotransferase (ALT/SGPT) 60 Total Bilirubin 5.4 Sodium Level 145 Potassium Level 4.8 Chloride Level 111 Carbon Dioxide Level 23.9 Anion Gap 10 Estimat Glomerular Filtration Rate 53 Lactic Acid Level 4.0 Protein Corrected Calcium 8.7 Test 12/04/17 10:00 12/04/17 11:40 12/04/17 17:08 White Blood Count 24.6 31.7 Red Blood Count 4.05 3.78 Hemoglobin 11.9 11.0 Hematocrit 34.9 32.1 Mean Corpuscular Volume 86.1 85.1 Mean Corpuscular Hemoglobin 29.3 29.2 Mean Corpuscular Hemoglobin Concent 34.0 34.3 Red Cell Distribution Width 16.6 16.2 Platelet Count 50 89 Mean Platelet Volume 11.0 9.4 Neutrophils (%) (Auto) 80.5 Lymphocytes (%) (Auto) 3.9 Monocytes (%) (Auto) 15.5 Eosinophils (%) (Auto) 0.0 Basophils (%) (Auto) 0.1 Neutrophils # (Auto) 19.8 Lymphocytes # (Auto) 1.0 Monocytes # (Auto) 3.8 Eosinophils # (Auto) 0.0 Basophils # (Auto) 0.0 CBC Comment AUTO DIFF Differential Comment AUTO DIFF CONFIRMED Blood Urea Nitrogen 17 Creatinine 1.03 Random Glucose 169 Total Protein 4.0 Albumin 1.7 Calcium Level 8.9 Alkaline Phosphatase 103 Aspartate Amino Transf (AST/SGOT) 138 Alanine Aminotransferase (ALT/SGPT) 97 Total Bilirubin 5.8 Sodium Level 147 Potassium Level 3.6 Chloride Level 113 Carbon Dioxide Level 26.8 Anion Gap 7 Estimat Glomerular Filtration Rate 69 Lactic Acid Level 1.7 Date/Time Source Procedure Growth Status 12/03/17 20:54 Blood Peripheral Aerobic Blood Culture - Preliminary NO GROWTH IN 1 DAY Resulted 12/03/17 20:54 Blood Peripheral Anaerobic Blood Culture - Preliminary NO GROWTH IN 1 DAY Resulted 12/04/17 00:42 Fluid Bile Fluid Gram Stain - Final Resulted 12/04/17 00:42 Fluid Bile Fluid Body Fluid Culture Pending Resulted 12/01/17 06:30 Urine Clean Catch Urine Culture - Final Staphylococcus Epidermidis Complete Imaging Last Impressions Chest X-Ray 12/04/17 0000 Signed Impressions: Service Date/Time: December 01:38 - CONCLUSION: 1. Endotracheal tube 1 cm within the right mainstem bronchus. Suggest retracting it approximately 3 cm. 2. Clear lungs. Jung Lundberg Jr., MD Abdomen X-Ray 12/03/17 180 Signed Impressions: Service Date/Time: Sunday, December 03, 2017 18:15 - CONCLUSION: Nonspecific abdomen. K. Gurvinder Jean MD Bile Duct Drainage 12/03/17 0000 Signed Impressions: Service Date/Time: Sunday, December 03, 2017 14:10 - CONCLUSION: Uncomplicated biliary stent placement as above. Bj Hurtado MD Abdomen/Pelvis CT 12/03/17 0000 Signed Impressions: Service Date/Time: December 02:42 - CONCLUSION: 1. Moderate volume hemoperitoneum. 2. Interval placement of a right internal/external biliary drainage catheter. This is in good position. Jung Lundberg Jr., MD Cholangiopancreatography MRI 12/02/17 0000 Signed Impressions: Service Date/Time: Saturday, December 02, 2017 08:17 - CONCLUSION: 1. Significant dilatation of the intrahepatic ducts ending at the confluence and possibility of stricture at this site or a Klatskin's tumor which is not visualized should be entertained. 2. Wedge-shaped focal fat right hepatic lobe. Luz Jean MD Abdomen Ultrasound 12/01/17 0000 Signed Impressions: Service Date/Time: Friday, December 01, 2017 11:49 - CONCLUSION: 1. Intrahepatic biliary duct dilatation better seen on the CT examination. A lesion at the biliary duct confluence/common hepatic duct region still needs to be suspected. An ERCP or MRCP could be used to further evaluate this region. 2. Suspected area of focal hepatic steatosis at the anterior segment right lobe of the liver. 3. Gallstones Landry Zarate MD Physical Exam HEENT: normocephalic; atraumatic; + icterus CHEST: CTA CARDIAC: RRR ABDOMEN: semifirm, mildly distended, upper quadrant dressings with scant old blood. ANI drain with serosanguineous drainage, biliary drain with bilious output, some dark blood EXTREMITIES: No clubbing, cyanosis, or edema. SKIN: Normal; no rash; + jaundice. [employer]: sedated on vent Assessment and Plan Plan - abd pain, elevated LFTs, elevated ca 19-9 - lipase wnl, poss malignancy Ct done showed intrahepatic biliary duct dilatation without extrahepatic biliary duct dilatation concern for a lesion at the intrahepatic biliary duct or CBD level, MRCP showed Significant dilatation of the intrahepatic ducts ending at the confluence and possibility of stricture at this site or a Klatskin's tumor which is not visualized should be entertained CA 19-9 elevated at 85 s/p placement biliary drain by IR, CT assessed and this was discussed by Dr Malone and Dr Hurtado and it was felt that b/c biliary obstruction was proximal at confluence with normal caliber CBD, risk of doing ERCP increased, PTC best choice. pt transferred to [facility] subsequently after found to have hemoperitoneum and liver laceration. - leukocytosis - bcx no growth 1d, fluid cx pending - hemoperitoneum - capsular tear liver, s/p ex lap and control liver laceration bleed - UTI per primary Plan: - Cont. abx - monitor labs - consider EUS vs ERCP when stable - not much to add from GI standpoint at this time, GI will sign off. please reconsult when needed - Patient seen and examined by Dr. Poole and myself and this note is written on his behalf. Kim Apodaca Dec 04, 2017 21:21
[2017-12-05] VITALS (17 sets, daily range): BP systolic 109–143; BP diastolic 46–70; PULSE 59–136; RESP 10–18; TEMP 97.7–99; O2SAT 92–100
[2017-12-05] MEDS: PANTOPRAZOLE SODIUM 40 MG VIAL IV PUSH SCH ×2 (02:06→14:41)
[2017-12-05 02:38] LABS: HEMATOCRIT 31.2 % (39.0-51.0); HEMOGLOBIN 10.6 GM/DL (13.0-17.0); MEAN CELL VOLUME 84.8 FL (80.0-100.0); MEAN CORPUSCULAR HEMOGLOBIN 28.7 PG (27.0-34.0); MEAN CORPUSCULAR HGB CONC 33.8 % (32.0-36.0); MEAN PLATELET VOLUME 9.7 FL (7.0-11.0); PLATELET COUNT 93 TH/MM3 (150-450); RED BLOOD COUNT 3.68 MIL/MM3 (4.50-5.90); RED CELL DISTRIBUTION WIDTH 16.1 % (11.6-17.2); WHITE BLOOD COUNT 45.1 TH/MM3 (4.0-11.0)
[2017-12-05 03:16] LABS: BANDS 1 % (0-6); MONOCYTES 9 % (0-8); POLYS (SEG NEUTROPHILS) 90 % (16-70)
[2017-12-05 03:24] LABS: ALBUMIN 1.9 GM/DL (3.4-5.0); ALKALINE PHOSPHATASE 109 U/L (45-117); ALT (GPT) 117 U/L (12-78); AST (GOT) 154 U/L (15-37); BICARBONATE 30.6 MEQ/L (21.0-32.0); BLOOD UREA NITROGEN 16 MG/DL (7-18); CALCIUM 8.1 MG/DL (8.5-10.1); CHLORIDE 108 MEQ/L (98-107); CREATININE 0.87 MG/DL (0.60-1.30); GLOMERULAR FILTRATION RATE 84 ML/MIN (>89); GLUCOSE,RANDOM 167 MG/DL (74-106); SODIUM (NA) 146 MEQ/L (136-145); TOTAL BILIRUBIN ADULT 4.4 MG/DL (0.2-1.0); TOTAL PROTEIN 4.3 GM/DL (6.4-8.2)
[2017-12-05] MEDS: PIPERACIL-TAZO 3.375 GM PREMIX 50 ML IV SCH ×4 (04:28→21:03)
--- NOTE | 2017-12-05 05:21 | RADRPT ---
EXAM DATE/TIME: 12/05/2017 04:35 [place] COMPARISON: CT ABDOMEN & PELVIS W CONTRAST, December 04, 2017, 2:42. CHEST SINGLE AP, December 04, 2017, 1:38. INDICATIONS : Respiratory disease. MEDICAL HISTORY : None. SURGICAL HISTORY : None. ENCOUNTER: Subsequent ACUITY: 4 - 6 days PAIN SCORE: Non-responsive. LOCATION: Bilateral chest FINDINGS: Single AP view of the chest. Endotracheal tube and nasogastric tube remain in place. Right IJ central venous catheter remains in place. Left lower lobe atelectasis versus consolidation now seen. Small m inimal left pleural effusion. pleural effusion unchanged. CONCLUSION: Left lower lobe atelectasis versus consolidation and minimal left pleural effusion no w seen. Jerry Laureano MD on December 05, 2017 at 5:18 Board Certified Radiologist. This report was verified electronically.
[2017-12-05] MEDS: HYDROCORTISONE SOD SUCCINATE 100 MG VIAL IV PUSH SCH ×3 (05:45→21:21)
[2017-12-05] MEDS: LEVOTHYROXINE SODIUM 112 MCG TAB PO SCH (05:45)
[2017-12-05] MEDS ORDERED: POTASSIUM PHOSPHATE MONOBASIC 500 MG TAB PO/TUBE PRN (07:15)
[2017-12-05] MEDS ORDERED: MAGNESIUM SULFATE INJ 2 GM in SODIUM CHLORIDE 0.9% INJ 96 ML IV PRN (07:15)
[2017-12-05] MEDS ORDERED: POTASSIUM CHLOR 40 MEQ PREMIX 100 ML IV PRN (07:15)
[2017-12-05] MEDS ORDERED: MAGNESIUM SULFATE INJ 4 GM in SODIUM CHLORIDE 0.9% INJ 92 ML IV PRN (07:15)
[2017-12-05] MEDS ORDERED: POTASSIUM CHLOR 20 MEQ PREMIX 100 ML IV PRN ×2 (07:15)
[2017-12-05] MEDS ORDERED: SODIUM PHOSPHATE INJ 30 MMOL in SODIUM CHLOR 0.9% 250 ML INJ 240 ML IV PRN (07:15)
[2017-12-05] MEDS ORDERED: POTASSIUM CHLORIDE 25 MEQ EFFERVESCENT TAB PO PRN (07:15)
[2017-12-05] MEDS ORDERED: MAGNESIUM OXIDE 400 MG TAB PO PRN (07:15)
[2017-12-05] MEDS ORDERED: POTASSIUM PHOSPHATE INJ 30 MMOL in SODIUM CHLOR 0.9% 250 ML INJ 250 ML IV PRN (07:15)
[2017-12-05] MEDS: DOCUSATE SODIUM 50 MG/SENNA 8.6 MG TAB PO SCH ×2 (07:51→20:43)
[2017-12-05] MEDS: CHLORHEXIDINE 0.12% (ORAL KIT) 15 ML CUP MT SCH ×2 (07:51→20:00)
[2017-12-05] MEDS: SODIUM CHLORIDE 0.9% FLUSH 10 ML FLUSH IV FLUSH SCH ×2 (07:51→20:44)
[2017-12-05] MEDS: POTASSIUM CHLOR 40 MEQ PREMIX 100 ML IV PRN (07:52)
--- NOTE | 2017-12-05 09:31 | HHI.PR ---
Subjective Subjective Notes stable overnight per RN, trying to wean pressors off. drain put out about 400 serosanginous fluid. bilary drain working. CCM considering extubation later today. Objective Vitals/I&O Vital Signs Date Time Temp Pulse Resp B/P (MAP) Pulse Ox O2 Delivery O2 Flow Rate FiO2 12/05/17 08:00 98.0 88 18 128/61 (83) 100 12/05/17 07:22 40 12/05/17 07:00 Mechanical Ventilator 12/04/17 19:00 2.00 Labs Laboratory Tests Test 12/04/17 10:00 12/04/17 11:40 12/04/17 17:08 12/05/17 02:29 White Blood Count 24.6 31.7 45.1 Red Blood Count 4.05 3.78 3.68 Hemoglobin 11.9 11.0 10.6 Hematocrit 34.9 32.1 31.2 Mean Corpuscular Volume 86.1 85.1 84.8 Mean Corpuscular Hemoglobin 29.3 29.2 28.7 Mean Corpuscular Hemoglobin Concent 34.0 34.3 33.8 Red Cell Distribution Width 16.6 16.2 16.1 Platelet Count 50 89 93 Mean Platelet Volume 11.0 9.4 9.7 Neutrophils (%) (Auto) 80.5 Lymphocytes (%) (Auto) 3.9 Monocytes (%) (Auto) 15.5 Eosinophils (%) (Auto) 0.0 Basophils (%) (Auto) 0.1 Neutrophils # (Auto) 19.8 Lymphocytes # (Auto) 1.0 Monocytes # (Auto) 3.8 Eosinophils # (Auto) 0.0 Basophils # (Auto) 0.0 CBC Comment AUTO DIFF AUTO DIFF Differential Comment AUTO DIFF CONFIRMED FINAL DIFF MANUAL Blood Urea Nitrogen 17 16 Creatinine 1.03 0.87 Random Glucose 169 167 Total Protein 4.0 4.3 Albumin 1.7 1.9 Calcium Level 8.9 8.1 Alkaline Phosphatase 103 109 Aspartate Amino Transf (AST/SGOT) 138 154 Alanine Aminotransferase (ALT/SGPT) 97 117 Total Bilirubin 5.8 4.4 Sodium Level 147 146 Potassium Level 3.6 3.0 Chloride Level 113 108 Carbon Dioxide Level 26.8 30.6 Anion Gap 7 7 Estimat Glomerular Filtration Rate 69 84 Lactic Acid Level 1.7 Differential Total Cells Counted 100 Neutrophils % (Manual) 90 Band Neutrophils % 1 Monocytes % 9 Neutrophils # (Manual) 41.0 Platelet Estimate LOW Platelet Morphology Comment ENLARGED Date/Time Source Procedure Growth Status 12/03/17 20:54 Blood Peripheral Aerobic Blood Culture - Preliminary NO GROWTH IN 1 DAY Resulted 12/03/17 20:54 Blood Peripheral Anaerobic Blood Culture - Preliminary NO GROWTH IN 1 DAY Resulted 12/04/17 00:42 Fluid Bile Fluid Gram Stain - Final Resulted 12/04/17 00:42 Fluid Bile Fluid Body Fluid Culture Pending Resulted 12/01/17 06:30 Urine Clean Catch Urine Culture - Final Staphylococcus Epidermidis Complete Abdomen: Non-distended, Post-op tenderness Narrative Exam drain with serosanginous fluid, bilary drain with bile Wound Wound : Wound Location: Abdomen Appearance: Clean & Dry Dressing: Dry A/P Assessment and Plan POD1 exp lap for liver lacertion supportive care CCM planning extubation will follow labs and drain output will check wounds in 48 hours, leave surgical dressing on for now Dr. Pierre and Dr. Garvey covering this weekend. I will return Friday. Chance Montero MD Dec 05, 2017 09:31
[2017-12-05] MEDS: SODIUM BICARBONATE 8.4% INJ 150 MEQ in DEXTROSE 5% IN WATE 1000ML INJ 1,000 ML IV SCH ×4 (11:04→21:02)
[2017-12-05] MEDS: VANCOMYCIN INJ 1,200 MG in SODIUM CHLOR 0.9% 250 ML INJ 250 ML IV SCH (11:05)
--- NOTE | 2017-12-05 11:52 | HHI.FPPN ---
Subjective Remarks Patient had no acute events overnight. Patient is sedated at the time of exam and remarks that he is responsive but somewhat agitated when the sedation wears off and tries to pull at lines and tubes. (Vincent Quezada MD) Objective Vitals Vital Signs Date Time Temp Pulse Resp B/P (MAP) Pulse Ox O2 Delivery O2 Flow Rate FiO2 12/05/17 10:00 92 Nasal Cannula 4.00 12/05/17 10:00 136 12/05/17 09:27 40 12/05/17 08:00 66 12/05/17 08:00 98.0 88 18 128/61 (83) 100 12/05/17 07:22 100 40 12/05/17 07:00 100 Mechanical Ventilator 40 12/05/17 06:00 59 12/05/17 04:06 100 40 12/05/17 04:00 63 12/05/17 04:00 98.5 63 16 109/46 (67) 100 12/05/17 02:00 68 12/05/17 00:53 100 40 12/05/17 00:00 88 12/05/17 00:00 98.6 88 16 118/53 (74) 100 12/04/17 22:00 79 12/04/17 20:00 64 12/04/17 20:00 98.5 64 16 108/48 (68) 100 12/04/17 19:32 100 40 12/04/17 19:00 100 Mechanical Ventilator 2.00 40 12/04/17 18:00 67 12/04/17 16:00 97.7 78 16 107/50 (69) 100 12/04/17 16:00 66 12/04/17 15:46 100 40 12/04/17 14:00 64 12/04/17 12:36 100 40 12/04/17 12:00 96.7 78 16 110/54 (72) 100 12/04/17 12:00 63 I/O 12/04/17 12/04/17 12/04/17 12/05/17 12/05/17 12/05/17 07:00 15:00 23:00 07:00 15:00 23:00 Intake Total 5182 ml 7331 ml 1699 ml 1900.8 ml Output Total 2300 ml 190 ml 1305 ml 690 ml Balance 2882 ml 7141 ml 394 ml 1210.8 ml IV Total 4806 ml 1399 ml 1780.8 ml Packed Cells 2400 ml 1500 ml FFP 394 ml 722 ml Platelets 283 ml 300 ml Cryoprecipitate 228 ml Blood Product IV Normal Saline Flush 660 ml 20 ml Other 1500 ml 120 ml Output Urine Total 600 ml 350 ml Gastric Drainage Total 415 ml 0 ml Drainage Total 190 ml 290 ml 340 ml Estimated Blood Loss 2000 ml Other 300 ml # Bowel Movements 1 0 (Vincent Quezada MD) Result Diagram: 12/05/179 12/05/17 0229 Other Results Laboratory Tests Test 12/04/17 17:08 12/05/17 02:29 White Blood Count 31.7 TH/MM3 45.1 TH/MM3 Red Blood Count 3.78 MIL/MM3 3.68 MIL/MM3 Hemoglobin 11.0 GM/DL 10.6 GM/DL Hematocrit 32.1 % 31.2 % Mean Corpuscular Volume 85.1 FL 84.8 FL Mean Corpuscular Hemoglobin 29.2 PG 28.7 PG Mean Corpuscular Hemoglobin Concent 34.3 % 33.8 % Red Cell Distribution Width 16.2 % 16.1 % Platelet Count 89 TH/MM3 93 TH/MM3 Mean Platelet Volume 9.4 FL 9.7 FL CBC Comment AUTO DIFF Differential Total Cells Counted 100 Neutrophils % (Manual) 90 % Band Neutrophils % 1 % Monocytes % 9 % Neutrophils # (Manual) 41.0 TH/MM3 Differential Comment FINAL DIFF MANUAL Platelet Estimate LOW Platelet Morphology Comment ENLARGED Blood Urea Nitrogen 16 MG/DL Creatinine 0.87 MG/DL Random Glucose 167 MG/DL Total Protein 4.3 GM/DL Albumin 1.9 GM/DL Calcium Level 8.1 MG/DL Alkaline Phosphatase 109 U/L Aspartate Amino Transf (AST/SGOT) 154 U/L Alanine Aminotransferase (ALT/SGPT) 117 U/L Total Bilirubin 4.4 MG/DL Sodium Level 146 MEQ/L Potassium Level 3.0 MEQ/L Chloride Level 108 MEQ/L Carbon Dioxide Level 30.6 MEQ/L Anion Gap 7 MEQ/L Estimat Glomerular Filtration Rate 84 ML/MIN Imaging Last Impressions Chest X-Ray 12/05/17 0600 Signed Impressions: Service Date/Time: Tuesday, December 05, 2017 04:35 - CONCLUSION: Left lower lobe atelectasis versus consolidation and minimal left pleural effusion now seen. Jerry Laureano MD Abdomen X-Ray [id number] Signed Impressions: Service Date/Time: Sunday, December 03, 2017 18:15 - CONCLUSION: Nonspecific abdomen. Luz Jean MD Bile Duct Drainage 12/03/17 0000 Signed Impressions: Service Date/Time: Sunday, December 03, 2017 14:10 - CONCLUSION: Uncomplicated biliary stent placement as above. jB Hurtado MD Abdomen/Pelvis CT 12/03/17 0000 Signed Impressions: Service Date/Time: December 02:42 - CONCLUSION: 1. Moderate volume hemoperitoneum. 2. Interval placement of a right internal/external biliary drainage catheter. This is in good position. Jung Lundberg Jr., MD Cholangiopancreatography MRI 12/02/17 0000 Signed Impressions: Service Date/Time: Saturday, December 02, 2017 08:17 - CONCLUSION: 1. Significant dilatation of the intrahepatic ducts ending at the confluence and possibility of stricture at this site or a Klatskin's tumor which is not visualized should be entertained. 2. Wedge-shaped focal fat right hepatic lobe. Luz Jean MD Abdomen Ultrasound 12/01/17 0000 Signed Impressions: Service Date/Time: Friday, December 01, 2017 11:49 - CONCLUSION: 1. Intrahepatic biliary duct dilatation better seen on the CT examination. A lesion at the biliary duct confluence/common hepatic duct region still needs to be suspected. An ERCP or MRCP could be used to further evaluate this region. 2. Suspected area of focal hepatic steatosis at the anterior segment right lobe of the liver. 3. Gallstones Landry Zarate MD Objective Remarks Physical Exam GEN: sedated, NAD, laying in bed intubated, responsive when called by name with attempting to open eyes. CV: RRR no rubs, gallops, or murmurs appreciated. equal, strong pulses bilaterally. Resp: CTA bilaterally, no wheezes, rhonchi, or rales noted. Abdomen: soft, nontender no distension. no fluid wave appreciated. exam limited by level of sedation. Drain in place and functional. Skin: mild jaundice that has decreased in intensity and extension. less pronounced than yesterday. Procedures 12/04/17 - Exploratory laparotomy, liver laceration repair 12/03/17 - Biliary drainage Medications and IVs Current Medications Medications (Trade) Dose Ordered Sig/Rafa Route Start Time Stop Time Status Last Admin (NS Flush) 2 ml UNSCH PRN IV FLUSH 12/01/17 11:00 (NS Flush) 2 ml BID IV FLUSH 12/01/17 21:00 12/05/17 07:51 (Zofran Inj) 4 mg Q6H PRN IVP 12/01/17 11:00 12/03/17 20:00 ([place]ton 5-325 Mg) 1 tab Q4H PRN PO 12/01/17 11:00 ([place] 10-325 Mg) 1 tab Q4H PRN PO 12/01/17 11:00 (Narcan Inj) 0.4 mg UNSCH PRN IV PUSH 12/01/17 11:00 (Deedee-Colace) 1 tab BID PO 12/01/17 21:00 12/05/17 07:51 (Milk Of Magnesia Liq) 30 ml Q12H PRN PO 12/01/17 11:00 12/02/17 16:20 (Senokot) 17.2 mg Q12H PRN PO 12/01/17 11:00 (Dulcolax Supp) 10 mg DAILY PRN RECTAL 12/01/17 11:00 (Lactulose Liq) 30 ml DAILY PRN PO 12/01/17 11:00 (Proscar) 5 mg DAILY PO 12/02/17 09:00 Future Hold (Synthroid) 112 mcg DAILY@0600 PO 12/02/17 06:00 12/05/17 05:45 (Deltasone) 5 mg DAILY PO 12/02/17 09:00 Future Hold Piperacillin Sod/ Tazobactam Sod 50 ml @ 100 mls/hr Q6H IV 12/01/17 16:00 12/05/17 07:51 Vancomycin HCl 1200 mg/Sodium Chloride 262 ml @ 250 mls/hr Q12H IV 12/03/17 23:00 12/05/17 11:05 Phenylephrine HCl 40 mg/Dextrose 500 ml @ 30 mls/hr TITRATE PRN IV 12/03/17 22:15 12/03/17 23:30 (Brethine Inj) 1 mg UNSCH PRN SQ 12/03/17 22:15 Fluconazole/ Sodium Chloride 100 ml @ 100 mls/hr Q24H IV 12/04/17 00:00 12/04/17 23:14 (SoluCORTEF INJ) 100 mg Q8HR IV PUSH 12/04/17 00:30 12/05/17 05:45 Sodium Bicarbonate 150 meq/Dextrose 1,150 ml @ 100 mls/hr Q77H22Q IV 12/04/17 00:30 12/05/17 11:04 (Peridex 0.12% Liq) 15 ml BID@08,20 MT 12/04/17 08:00 12/05/17 07:51 Fentanyl Citrate 250 ml @ 5 mls/hr TITRATE PRN IV 12/04/17 01:30 12/04/17 02:11 (Protonix Inj) 40 mg Q12H IV PUSH 12/04/17 02:00 12/05/17 02:06 Propofol 100 ml @ 2.4 mls/hr TITRATE PRN IV 12/04/17 02:00 12/04/17 23:13 Potassium Chloride 100 ml @ 50 mls/hr Q2H PRN IV 12/05/17 07:15 12/05/17 07:52 Potassium Chloride 100 ml @ 50 mls/hr Q2H PRN IV 12/05/17 07:15 (K-Lyte Cl Eff) 50 meq UNSCH PRN PO 12/05/17 07:15 Potassium Chloride 100 ml @ 25 mls/hr UNSCH PRN IV 12/05/17 07:15 Potassium Chloride 100 ml @ 50 mls/hr Q2H PRN IV 12/05/17 07:15 Magnesium Sulfate 4 gm/Sodium Chloride 100 ml @ 50 mls/hr UNSCH PRN IV 12/05/17 07:15 (Mag-Ox) 800 mg UNSCH PRN PO 12/05/17 07:15 Magnesium Sulfate 2 gm/Sodium Chloride 100 ml @ 50 mls/hr UNSCH PRN IV 12/05/17 07:15 (K-Phos) 2,000 mg Q4H PRN PO 12/05/17 07:15 Sodium Phosphate 30 mmol/Sodium Chloride 250 ml @ 42 mls/hr UNSCH PRN IV 12/05/17 07:15 (K-Phos) 2,000 mg UNSCH PRN PO/TUBE 12/05/17 07:15 Potassium Phosphate 30 mmol/ Sodium Chloride 260 ml @ 42 mls/hr UNSCH PRN IV 12/05/17 07:15 (Vincent Quezada MD) A/P Assessment and Plan 82 yo male with h/o PMR, BPH, hyperlipidemia presenting with: (Vincent Quezada MD) Attending Attestation Patient seen and examined. Case reviewed and discussed with the resident team. Agree with plan of care as discussed with me and documented in the resident note. still very ill but was able to be extubated. (La Wood MD) Problem List: (1) Liver hemorrhage ICD Codes: K76.89 - Other specified diseases of liver Status: Acute Plan: from procedure for dilated duct in liver, s/p surgery on the to repair the liver and stop bleeding. stable now. surgery team will evaluate for additional surgery post drainage removal. appreciate help from Dr Montero and Intensivists (2) Abdominal pain ICD Codes: R10.9 - Unspecified abdominal pain Status: Acute Plan: Sudden onset abdominal pain worst in RUQ - has since progressed to tenderness to deep palpation, minimal pain. CT findings as above MRCP findings as above Significant leukocytosis on admission initially improved with Zosyn, now increased post-operatively UA with hematuria, many WBC on admission UCx growing staph epidermidis Item Value Date Time Tumor Marker Alpha Fetoprotein 1.9 NG/ML 12/02/17 0724 Carcinoembryonic Antigen 1.0 NG/ML 12/02/17 0724 CA 19-9 Antigen 85.0 U/ML H 12/02/17 0724 Differential including malignancy, choledocholithiasis, cholecystitis, kidney stone, UTI - Currently in ICU - care coordinated with GI, surgery, ICU, and FM Med team Tabatha MATOS has signed off. - Zosyn 3.375 Q6H IV for to cover UTI, abdominal pathogens initially, will continue for duration of surgical drainage and consider d/c at that time. - Fluconazole added by [facility] for Marielle albicans in body fluid culture. - Diet can be advanced per surgery when he is ready - f/u outpatient pending GI diagnostic impression - still needs to determine the presence of tumor vs not. (3) Polymyalgia rheumatica ICD Codes: M35.3 - Polymyalgia rheumatica Status: Chronic Plan: Pain stable, was on 5 mg of prednisone which is enough to suppress his adrenals. he is on some stress dose steroids to help him with his current problems but he can likely be weaned back down to 5 mg once this crisis is over (4) BPH (benign prostatic hyperplasia) ICD Codes: N40.0 - Benign prostatic hyperplasia without lower urinary tract symptoms Status: Chronic Plan: Symptoms currently well controlled, continue home finasteride (holding for now post-operatively) (5) Hypothyroidism ICD Codes: E03.9 - Hypothyroidism, unspecified Status: Chronic Plan: Continue home Synthroid (6) Urinary tract infection in male ICD Codes: N39.0 - Urinary tract infection, site not specified Status: Acute Plan: Has h/o UTIs in past ?complication with renal stone, very small (1-2 mm) urine is staph epidermitis sensitive to almost everything - Coverage with Zosyn as above, now on vanc as well - Unlikely true UTI; will continue coverage in this critically ill patient, consider discontinuing pending stabilization (7) FEN/PPX Plan: Fluids: per surgery and Event Set Up Specialist Electrolytes: Monitor and replace PRN, should be on ICU protocol Nutrition: Diet regular basic once able to start eating again DVT: Lovenox 40 mg SQ daily - held yesterday since plts <100k and patient was ambulating. will not resume until he is healed GI: Home PPI PRN for heartburn Dispo: admitted. will be here for days as he may need additional surgery (Vincent Quezada MD) Problem Qualifiers (1) Abdominal pain: Qualified Codes: R10.11 - Right upper quadrant pain (2) BPH (benign prostatic hyperplasia): Qualified Codes: N40.0 - Benign prostatic hyperplasia without lower urinary tract symptoms (3) Hypothyroidism: Qualified Codes: E03.9 - Hypothyroidism, unspecified Vincent Quezada MD Dec 05, 2017 11:52 La Wood MD Dec 06, 2017 15:38
[2017-12-05 14:09] LABS: HEMATOCRIT 32.5 % (39.0-51.0); HEMOGLOBIN 10.7 GM/DL (13.0-17.0); MEAN CELL VOLUME 86.6 FL (80.0-100.0); MEAN CORPUSCULAR HEMOGLOBIN 28.5 PG (27.0-34.0); MEAN CORPUSCULAR HGB CONC 32.9 % (32.0-36.0); PLATELET COUNT 92 TH/MM3 (150-450); RED BLOOD COUNT 3.75 MIL/MM3 (4.50-5.90); RED CELL DISTRIBUTION WIDTH 16.2 % (11.6-17.2); WHITE BLOOD COUNT 51.8 TH/MM3 (4.0-11.0)
[2017-12-05 14:30] LABS: ALKALINE PHOSPHATASE 129 U/L (45-117); TOTAL BILIRUBIN ADULT 4.8 MG/DL (0.2-1.0); TOTAL PROTEIN 4.8 GM/DL (6.4-8.2)
[2017-12-05 14:42] LABS: ALBUMIN 1.9 GM/DL (3.4-5.0); ALT (GPT) 118 U/L (12-78); AST (GOT) 140 U/L (15-37); BICARBONATE 33.3 MEQ/L (21.0-32.0); BLOOD UREA NITROGEN 18 MG/DL (7-18); CALCIUM 7.5 MG/DL (8.5-10.1); CHLORIDE 107 MEQ/L (98-107); CREATININE 1.08 MG/DL (0.60-1.30); GLOMERULAR FILTRATION RATE 66 ML/MIN (>89); GLUCOSE,RANDOM 144 MG/DL (74-106); MAGNESIUM 1.6 MG/DL (1.5-2.5); PHOSPHORUS 3.5 MG/DL (2.5-4.9); SODIUM (NA) 145 MEQ/L (136-145)
[2017-12-05] MEDS ORDERED: FLUCONAZOLE 200 MG PREMIX BAG 100 ML IV ONE (15:30)
[2017-12-05] MEDS ORDERED: FLUCONAZOLE 400 MG PREMIX BAG 200 ML IV ONE (15:30)
--- NOTE | 2017-12-05 15:42 | HHI.CCPN ---
Subjective Remarks/Hospital Course 82-year-old male with past history of BPH, hyperlipidemia, PMR who is admitted to [facility] 12/01/17 with right upper quadrant abdominal pain and jaundice. LFTs were elevated in an obstructive pattern. CT demonstrated intrahepatic biliary duct dilatation. A mass was not clearly seen. 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 He underwent percutaneous biliary stent placement and drain by interventional radiology 12/03/17 (Dr. Hurtado). He was hypotensive post procedure and this was initially managed by family law attorney with 1.5 L fluid resuscitation and stress dose steroids, abx for possible biliary sepsis. Hypotension persisted and he was transferred to ICU with critical care medicine consult. When I went to evaluate the patient he appeared pale with cool skin concerning for hemorrhagic shock. CBC demonstrated leukocytosis 27.5 and hemoglobin was 9.4 from a baseline of 13. Place central line and art line, started neosynephrine, began transfusing blood products until appropriately stabilized for transition to CT scanner. CT scan demonstrated moderate hemoperitoneum with hemorrhage adjacent to the liver. The biliary drain was in good position. Called Dr. Montero who will take patient to OR for emergent laparotomy. agreeable to risks of surgery. Upon transition to OR he had received PRBC 7 units, 2 units FFP and 1 gram calcium chloride with 1 more unit of FFP, 1 unit platelets, 1 unit cryo ready to transfuse. 12/04/17: Status post exploratory laparotomy and control of liver laceration bleeding by Dr. montero, findinL hemoperitoneum, Capsular tear Segment of the liver. Remains on Chas-Synephrine at 50 mcg/m. Repeat lab work showed platelet count of 50 hemoglobin of 11.9. Platelet transfusion ordered. at the bedside 12/05/17: Tolerating CPAP, follows commands but tachycardic. White count increased to 52,000 biliary fluid with Marielle. I have increase Diflucan to 40 mg daily and consulted ID. Urine output minimal, no response to fluid bolus. Weight up by 10 kg, will attempt diuresis Objective Vital Signs Date Time Temp Pulse Resp B/P (MAP) Pulse Ox O2 Delivery O2 Flow Rate FiO2 12/05/17 14:00 131 12/05/17 12:00 98.2 12 143/66 (91) 94 12/05/17 10:00 Nasal Cannula 4.00 12/05/17 09:27 40 Intake and Output 12/05/17 12/05/17 12/06/17 08:00 16:00 00:00 Intake Total 1538.8 ml Output Total 690 ml Balance 848.8 ml Result Diagram: 12/05/17 1340 12/05/17 1340 Objective Remarks GENERAL: Pale appearing male, intubated off sedation SKIN: Cool to touch HEAD: Atraumatic. Normocephalic. EYES: Pupils equal and round. Pallor+ ENT: No nasal bleeding or discharge. Mucous membranes pale NECK: Trachea midline. Jugular veins + CARDIOVASCULAR: Tachycardic, regular. No murmurs rubs or gallops. RESPIRATORY: Intubated at entry equal bilaterally. No wheezes rales or rhonchi. GASTROINTESTINAL: Midline laparotomy dressing intact. Biliary and peritoneal drain in place MUSCULOSKELETAL: Extremities without clubbing, cyanosis, or edema. NEUROLOGICAL: Intubated off sedation. Wakes up and follows commands A/P Assessment and Plan NEURO: Hold all sedation for weaning trial RESP: Acute respiratory failure with metabolic and respiratory acidemia Intubated due to severe metabolic acidemia and need to transition to OR for hemorrhage. Ventilator bundle CPAP trial probable extubation CV: Hemorrhagic shock-resolved Sinus tachycardia Art line for hemodynamic monitoring. Monitor CBC. Monitor coags. Transfuse based on hemodynamics Stress dose steroids as per below Status post multiple blood and blood product transfusion as below Fluid overloaded, start IV Lasix GI: Intrahepatic biliary obstruction status post biliary stent and drain 12/03/16 ( Dr. Hurtado) Liver laceration with hemoperitoneum Nothing by mouth. s/p OR ex lap with Dr. Montero, and control of bleeding from liver capsular laceration GI following for biliary obstruction ?tumor Elevated CA 19-9 Once stable may need ERCP/Biopsy FEN/RENAL: Severe metabolic acidemia secondary to acute blood loss Acute kidney injury BPH DC [place] [id number] MEQ @ 100 ml/hr [place]. Monitor intake and output. Monitor electrolyte. Replace electrolytes as indicated per replacement protocol Gave calcium chloride 1 g IV Holding Proscar due to hypotension- will resume Start diuresis with IV lasix ID: Leukocytosis Severe sepsis Probable Cholangitis with Marielle - Severe leukocytosis. Concomitant sepsis s/p biliary stent, marielle albicans in biliary culture. On Zosyn, vancomycin and Diflucan 400 daily ID consulted and discussed with Dr. Gill HEME: Acute blood loss anemia Thrombocytopenia Transfused 7 units packed red cells, 3 units FFP, 1 unit cryo on 12/03 - 12/04 Serial CBC and recheck coags. ENDO: Hypothyroidism Continue Synthroid 112 g by mouth daily Chronic prednisone Hydrocortisone 100 mg IV every 8 hours PROPH: SCDs for DVT prophylaxis. Hold Lovenox due to acute hemorrhage. Protonix 40 mg IV q12 until able to r/o GI source of bleeding. ACCESS: Right IJ central venous line placed 12/03/17 #3. Left femoral art line placed 12/03/17 #3-Dc Today CCT 40 minutes exclusive of separately billable procedures. Time spent at bedside actively were resuscitating patient with blood products and pressors. Nettie Alatorre MD Dec 05, 2017 15:41
[2017-12-05] MEDS ORDERED: FUROSEMIDE 40 MG/4 ML VIAL IV PUSH ONE (16:00)
[2017-12-05] MEDS ORDERED: POTASSIUM CHLOR 40 MEQ PREMIX 100 ML IV ONE (16:00)
--- NOTE | 2017-12-05 18:20 | PD.ID.CON ---
History of Present Illness Service ID Consult Requested By Dr Alatorre Reason for Consult severe sepsis Primary Care Physician Non-Staff Diagnoses: History of Present Illness unable to provide histroy, history obtained from the pt's spouse at /s Pt is 82 y.o. male show developped yellow skin discoloration followed by abdominal pain shortly after Alan abd was brought for evaluation by his MRI showed Significant dilatation of the intrahepatic ducts ending at the confluence and possibility of stricture at this site or a Klatskin's tumor Pt presented afebrile, but with significant leukocytosis of 30 K He underwent placement of i nterval placement of a right internal/external biliary drainage catheter and shorly after that developped hypovolemic shock secondary to bleeding after a biliary procedure He became hypotensive and hemodynamically unstable. S/p aggressive fluid and blood product resuscitation , intubation the patient and placement on vent Patient went to OR immediately and underwent emergent exp laparotomy by Dr Montero, He was found to have 2 liters hemoperitoneum secondary to capsular tear Segment of the liver. Bile fluid clx is growing Marielle albicans Pt was started on broad spectrum abx and fluconazole Also has Staph epi in the blood Today pt clinically improved, off pressors, extubated He is practically anuric, but hemodynamically stable His WBC went up to 50 K + and ID consult was requested Review of Systems ROS Limitations: Clinical Condition, Altered Mental Status Past Family Social History Allergies: Coded Allergies: No Known Allergies (Unverified Allergy, Unknown, 12/01/17) Past Medical History 1. BPH. 2. Polymyalgia rheumatica. 3. Hyperlipidemia. Past Surgical History He has had some back and neck surgery. Active Ordered Medications Medications where reviewed in EMR Antibiotics Include: zosyn vanco fluconazole 200 mg Family History reviewed non contributory Social History former ETOH and tobacco (quit in 80s) no illicit drugs Physical Exam Vital Signs Vital Signs Date Time Temp Pulse Resp B/P (MAP) Pulse Ox O2 Delivery O2 Flow Rate FiO2 12/05/17 16:00 99.0 114 10 118/61 (80) 97 12/05/17 16:00 114 12/05/17 14:00 131 12/05/17 12:00 123 12/05/17 12:00 98.2 123 12 143/66 (91) 94 12/05/17 10:00 92 Nasal Cannula 4.00 12/05/17 10:00 136 12/05/17 09:27 40 12/05/17 08:00 66 12/05/17 08:00 98.0 88 18 128/61 (83) 100 12/05/17 07:22 100 40 12/05/17 07:00 100 Mechanical Ventilator 40 12/05/17 06:00 59 12/05/17 04:06 100 40 12/05/17 04:00 63 12/05/17 04:00 98.5 63 16 109/46 (67) 100 12/05/17 02:00 68 12/05/17 00:53 100 40 12/05/17 00:00 88 12/05/17 00:00 98.6 88 16 118/53 (74) 100 12/04/17 22:00 79 12/04/17 20:00 64 12/04/17 20:00 98.5 64 16 108/48 (68) 100 12/04/17 19:32 100 40 12/04/17 19:00 100 Mechanical Ventilator 2.00 40 Physical Exam CONSTITUTIONAL/GENERAL: This is an adequately nourished patient, in no apparent distress. TUBES/LINES/DRAINS: SKIN: + mild jaundice, rashes, or lesions. Skin temperature appropriate. Not diaphoretic. HEAD: Atraumatic. Normocephalic. EYES: Pupils equal and round and reactive. Extraocular motions intact. + mild scleral icterus. No injection or drainage. Fundi not examined. ENT: Hearing grossly normal. Nose without bleeding or purulent drainage. Throat without visible erythema, exudates, masses, or lesions. NECK: Trachea midline. Supple, nontender. CARDIOVASCULAR: Regular rate and rhythm without murmurs, gallops, or rubs. No JVD. Peripheral pulses symmetric. RESPIRATORY/CHEST: Symmetric, unlabored respirations. Clear to auscultation. Breath sounds equal bilaterally. No wheezes, rales, or rhonchi. GASTROINTESTINAL: Abdomen tense no reaction to plaption, quite distended. Biliary drain in place with brown bile Drain in place in abdomen with hemorragic drainage No hepato-splenomegaly, or palpable masses. No guarding. Bowel sounds present. GENITOURINARY: Without palpable bladder distension. Carmona catheter in place with scarce amout of dark cloudy urine MUSCULOSKELETAL: Extremities without clubbing, cyanosis, + 2-3 edema. No joint tenderness or effusion noted. No calf tenderness. No mottling or clubbing. LYMPHATICS: No palpable cervical or supraclavicular adenopathy. NEUROLOGICAL: Lethargic, difficult to arouse . Not following PSYCHIATRIC: unable to assess Laboratory Laboratory Tests Test 12/05/17 02:29 12/05/17 13:40 White Blood Count 45.1 51.8 Red Blood Count 3.68 3.75 Hemoglobin 10.6 10.7 Hematocrit 31.2 32.5 Mean Corpuscular Volume 84.8 86.6 Mean Corpuscular Hemoglobin 28.7 28.5 Mean Corpuscular Hemoglobin Concent 33.8 32.9 Red Cell Distribution Width 16.1 16.2 Platelet Count 93 92 Mean Platelet Volume 9.7 10.0 CBC Comment AUTO DIFF Differential Total Cells Counted 100 Neutrophils % (Manual) 90 Band Neutrophils % 1 Monocytes % 9 Neutrophils # (Manual) 41.0 Differential Comment FINAL DIFF MANUAL Platelet Estimate LOW Platelet Morphology Comment ENLARGED Blood Urea Nitrogen 16 18 Creatinine 0.87 1.08 Random Glucose 167 144 Total Protein 4.3 4.8 Albumin 1.9 1.9 Calcium Level 8.1 7.5 Alkaline Phosphatase 109 129 Aspartate Amino Transf (AST/SGOT) 154 140 Alanine Aminotransferase (ALT/SGPT) 117 118 Total Bilirubin 4.4 4.8 Sodium Level 146 145 Potassium Level 3.0 3.6 Chloride Level 108 107 Carbon Dioxide Level 30.6 33.3 Anion Gap 7 5 Estimat Glomerular Filtration Rate 84 66 Phosphorus Level 3.5 Magnesium Level 1.6 Date/Time Source Procedure Growth Status 12/03/17 20:54 Blood Peripheral Aerobic Blood Culture - Preliminary NO GROWTH IN 2 DAYS Resulted 12/03/17 20:54 Blood Peripheral Anaerobic Blood Culture - Preliminary NO GROWTH IN 2 DAYS Resulted 12/04/17 00:42 Fluid Bile Fluid Gram Stain - Final Resulted 12/04/17 00:42 Body Fluid Culture - Preliminary Marielle Albicans Resulted 12/01/17 06:30 Urine Clean Catch Urine Culture - Final Staphylococcus Epidermidis Complete Result Diagram: 12/05/17 1340 12/05/17 1340 Imaging Last Impressions Chest X-Ray 12/05/17 0600 Signed Impressions: Service Date/Time: Tuesday, December 05, 2017 04:35 - CONCLUSION: Left lower lobe atelectasis versus consolidation and minimal left pleural effusion now seen. Jerry Laureano MD Abdomen X-Ray 12/03/17 180 Signed Impressions: Service Date/Time: Sunday, December 03, 2017 18:15 - CONCLUSION: Nonspecific abdomen. Luz Jean MD Bile Duct Drainage 12/03/17 0000 Signed Impressions: Service Date/Time: Sunday, December 03, 2017 14:10 - CONCLUSION: Uncomplicated biliary stent placement as above. Bj Hurtado MD Abdomen/Pelvis CT 12/03/17 0000 Signed Impressions: Service Date/Time: December 02:42 - CONCLUSION: 1. Moderate volume hemoperitoneum. 2. Interval placement of a right internal/external biliary drainage catheter. This is in good position. Jung Lundberg Jr., MD Cholangiopancreatography MRI 12/02/17 0000 Signed Impressions: Service Date/Time: Saturday, December 02, 2017 08:17 - CONCLUSION: 1. Significant dilatation of the intrahepatic ducts ending at the confluence and possibility of stricture at this site or a Klatskin's tumor which is not visualized should be entertained. 2. Wedge-shaped focal fat right hepatic lobe. Luz Jean MD Abdomen Ultrasound 12/01/17 0000 Signed Impressions: Service Date/Time: Friday, December 01, 2017 11:49 - CONCLUSION: 1. Intrahepatic biliary duct dilatation better seen on the CT examination. A lesion at the biliary duct confluence/common hepatic duct region still needs to be suspected. An ERCP or MRCP could be used to further evaluate this region. 2. Suspected area of focal hepatic steatosis at the anterior segment right lobe of the liver. 3. Gallstones Landry Zarate MD Assessment and Plan Assessment and Plan Acute hypovolemic shock following bleeding 2/2 complicaion of biliary stent placement sp emergent surgery Obstructive jaundiced, ethiology not yet established sp biliary stent placement candidal cholangitis Sepsis Leukocytosis, leukemoid reaction Acute VDRF - resolved ARF Pt significant ly improved clinically Staph epi bacteriuria - doubt clin significance - not a trypical urinary pathogen dc vancomycin cont zosyn increase fluconazole to [address] Alatorre RN spouse @ b/s Brigette Gill MD Dec 05, 2017 18:20
[2017-12-05] MEDS: RESP: ALBUTEROL 2.5 MG/IPRATROPIUM 0.5 MG NEB (SCH) NEB (22:16)
[2017-12-06] VITALS (14 sets, daily range): BP systolic 108–139; BP diastolic 51–70; PULSE 101–135; RESP 10–28; TEMP 97.7–99.7; O2SAT 96–98
[2017-12-06] MEDS: PANTOPRAZOLE SODIUM 40 MG VIAL IV PUSH SCH ×2 (02:01→13:26)
[2017-12-06] MEDS: RESP: ALBUTEROL 2.5 MG/IPRATROPIUM 0.5 MG NEB (SCH) NEB ×4 (03:59→22:20)
[2017-12-06] MEDS: PIPERACIL-TAZO 3.375 GM PREMIX 50 ML IV SCH ×4 (04:40→22:59)
[2017-12-06] MEDS ORDERED: SODIUM CHLORID 0.9% 500 ML INJ 500 ML IV ONE (05:30)
[2017-12-06] MEDS ORDERED: ALBUMIN 5% INJ 500 ML IV ONE (05:30)
[2017-12-06] MEDS: HYDROCORTISONE SOD SUCCINATE 100 MG VIAL IV PUSH SCH ×3 (05:36→22:59)
[2017-12-06] MEDS: LEVOTHYROXINE SODIUM 112 MCG TAB PO SCH (05:36)
[2017-12-06 06:37] LABS: AUTOMATED NEUTROPHIL # 43.2 TH/MM3 (1.8-7.7); BASOPHIL # 0.1 TH/MM3 (0-0.2); BASOPHIL % 0.1 % (0.0-2.0); HEMATOCRIT 30.3 % (39.0-51.0); HEMOGLOBIN 9.9 GM/DL (13.0-17.0); LYMPH % 1.1 % (9.0-44.0); LYMPHOCYTE # 0.5 TH/MM3 (1.0-4.8); MEAN CELL VOLUME 87.6 FL (80.0-100.0); MEAN CORPUSCULAR HEMOGLOBIN 28.5 PG (27.0-34.0); MEAN CORPUSCULAR HGB CONC 32.5 % (32.0-36.0); MEAN PLATELET VOLUME 10.9 FL (7.0-11.0); MONO % 12.5 % (0.0-8.0); MONOCYTE # 6.2 TH/MM3 (0-0.9); NEUT % 86.3 % (16.0-70.0); PLATELET COUNT 88 TH/MM3 (150-450); RED BLOOD COUNT 3.46 MIL/MM3 (4.50-5.90); RED CELL DISTRIBUTION WIDTH 16.5 % (11.6-17.2); WHITE BLOOD COUNT 50.1 TH/MM3 (4.0-11.0)
[2017-12-06 06:43] LABS: PROTHROMBIN TIME - PATIENT 10.3 SEC (9.8-11.6)
[2017-12-06] MEDS ORDERED: METOPROLOL TARTRATE 5 MG/5 ML VIAL IV PUSH ONE (07:30)
[2017-12-06] MEDS: FUROSEMIDE 40 MG/4 ML VIAL IV PUSH SCH ×2 (07:34→17:04)
[2017-12-06 07:42] LABS: ALBUMIN 1.7 GM/DL (3.4-5.0); BICARBONATE 34.7 MEQ/L (21.0-32.0); CALCIUM 7.1 MG/DL (8.5-10.1); CALCIUM-PROTEIN CORRECTED 8.5 MG/DL (8.5-10.1); CREATININE 1.21 MG/DL (0.60-1.30); FREE T4 1.18 NG/DL (0.76-1.46); MAGNESIUM 1.5 MG/DL (1.5-2.5); PHOSPHORUS 1.8 MG/DL (2.5-4.9); TOTAL BILIRUBIN ADULT 5.2 MG/DL (0.2-1.0); TOTAL PROTEIN 4.6 GM/DL (6.4-8.2); TROPONIN I 0.09 NG/ML (0.02-0.05)
[2017-12-06 07:59] LABS: BANDS 1 % (0-6); LYMPHOCYTES 1 % (9-44); MONOCYTES 8 % (0-8); NEUTROPHIL # MANUAL DIFF 45.6 TH/MM3 (1.8-7.7); POLYS (SEG NEUTROPHILS) 90 % (16-70)
--- NOTE | 2017-12-06 08:10 | RADRPT ---
EXAM DATE/TIME: 12/06/2017 07:38 [place] COMPARISON: CHEST SINGLE AP, December 05, 2017, 4:35. INDICATIONS : Respiratory disease. MEDICAL HISTORY : Renal calculi. SURGICAL HISTORY : Bilary stent. Cervical fusion. ENCOUNTER: Subsequent ACUITY: 3 days PAIN SCORE: Non-responsive. LOCATION: Bilateral chest FINDINGS: A small left pleural effusion is noted. The heart is mildly prominent. The endotracheal tube and naso gastric have been removed. A right internal jugular central line has its tip at junction superior tyrone a cava and right atrium. No focal alveolar consolidation is noted. Biliary stent is again noted. CONCLUSION: 1. Small left pleural effusion. 2. Cardiomegaly. 3. No acute focal pulmonary infiltrate or pulmonary vascular congestion. Allen Tony MD on December 06, 2017 at 8:06 Board Certified Radiologist. This report was verified electronically.
[2017-12-06] MEDS: CHLORHEXIDINE 0.12% (ORAL KIT) 15 ML CUP MT SCH ×2 (08:26→20:24)
[2017-12-06] MEDS ORDERED: FUROSEMIDE 40 MG/4 ML VIAL IV PUSH SCH (09:00)
[2017-12-06] MEDS: DOCUSATE SODIUM 50 MG/SENNA 8.6 MG TAB PO SCH ×2 (09:00→20:24)
[2017-12-06] MEDS: SODIUM CHLORIDE 0.9% FLUSH 10 ML FLUSH IV FLUSH SCH ×2 (09:23→20:24)
[2017-12-06] MEDS: SODIUM BICARBONATE 8.4% INJ 150 MEQ in DEXTROSE 5% IN WATE 1000ML INJ 1,000 ML IV SCH ×2 (09:23)
--- NOTE | 2017-12-06 10:28 | HHI.FPPN ---
Subjective Remarks Mr. Feng is an 82 yo M with initial presentation of jaundice and RUQ abdominal pain. Patient has since undergone biliary drainage and subsequent ex-lap and liver laceration repair. Patient was intubated and admitted to the ICU for care. Yesterday the patient was extubated by [facility], and the patient today was awake and responsive to our questions. present at bedside. Patient had no acute events overnight, although there was some concern for breathing difficulties by his . The idea for bipap/cpap was entertained for the duration of his stay due to his 's mention of snoring and he declined, thinking he would rather sleep with a mask on an outpatient basis. Objective Vitals Vital Signs Date Time Temp Pulse Resp B/P (MAP) Pulse Ox O2 Delivery O2 Flow Rate FiO2 12/06/17 10:06 97 Nasal Cannula 2.00 12/06/17 10:00 110 12/06/17 08:00 98.6 120 23 139/66 (90) 96 12/06/17 08:00 120 12/06/17 07:00 94 Nasal Cannula 2.00 12/06/17 06:00 135 12/06/17 04:00 118 12/06/17 04:00 97.7 120 12 137/70 (92) 98 126/67 (86) 12/06/17 02:00 122 12/06/17 00:00 104 12/06/17 00:00 99.7 104 10 136/70 (92) 98 126/60 (82) 12/05/17 22:23 95 Nasal Cannula 2.00 12/05/17 22:00 119 12/05/17 21:55 97 Nasal Cannula 2.00 12/05/17 21:23 97 Nasal Cannula 4.00 12/05/17 20:00 120 12/05/17 20:00 97.7 120 12 137/70 (92) 98 126/67 (86) 12/05/17 19:00 98 Nasal Cannula 4.00 12/05/17 18:00 127 12/05/17 16:00 99.0 114 10 118/61 (80) 97 12/05/17 16:00 114 12/05/17 14:00 131 12/05/17 12:00 123 12/05/17 12:00 98.2 123 12 143/66 (91) 94 I/O 12/05/17 12/05/17 12/05/17 12/06/17 12/06/17 12/06/17 06:59 14:59 22:59 06:59 14:59 22:59 Intake Total 1900.8 ml 250 ml 1400 ml 1750 ml Output Total 690 ml 1000 ml 1005 ml Balance 1210.8 ml 250 ml 400 ml 745 ml Intake Oral 250 ml IV Total 1780.8 ml 250 ml 1400 ml 1500 ml Other 120 ml Output Urine Total 350 ml 450 ml 600 ml Gastric Drainage Total 0 ml Drainage Total 340 ml 550 ml 405 ml # Bowel Movements 0 0 0 Result Diagram: 12/06/17 0545 12/06/17 0545 Other Results Laboratory Tests Test 12/06/17 05:45 12/06/17 06:45 White Blood Count 50.1 TH/MM3 (4.0-11.0) Red Blood Count 3.46 MIL/MM3 (4.50-5.90) Hemoglobin 9.9 GM/DL (13.0-17.0) Hematocrit 30.3 % (39.0-51.0) Mean Corpuscular Volume 87.6 FL (80.0-100.0) Mean Corpuscular Hemoglobin 28.5 PG (27.0-34.0) Mean Corpuscular Hemoglobin Concent 32.5 % (32.0-36.0) Red Cell Distribution Width 16.5 % (11.6-17.2) Platelet Count 88 TH/MM3 (150-450) Mean Platelet Volume 10.9 FL (7.0-11.0) Neutrophils (%) (Auto) 86.3 % (16.0-70.0) Lymphocytes (%) (Auto) 1.1 % (9.0-44.0) Monocytes (%) (Auto) 12.5 % (0.0-8.0) Eosinophils (%) (Auto) 0.0 % (0.0-4.0) Basophils (%) (Auto) 0.1 % (0.0-2.0) Neutrophils # (Auto) 43.2 TH/MM3 (1.8-7.7) Lymphocytes # (Auto) 0.5 TH/MM3 (1.0-4.8) Monocytes # (Auto) 6.2 TH/MM3 (0-0.9) Eosinophils # (Auto) 0.0 TH/MM3 (0-0.4) Basophils # (Auto) 0.1 TH/MM3 (0-0.2) CBC Comment AUTO DIFF Differential Total Cells Counted 100 Neutrophils % (Manual) 90 % (16-70) Band Neutrophils % 1 % (0-6) Lymphocytes % 1 % (9-44) Monocytes % 8 % (0-8) Neutrophils # (Manual) 45.6 TH/MM3 (1.8-7.7) Differential Comment FINAL DIFF MANUAL Platelet Estimate LOW (NORMAL) Platelet Morphology Comment ENLARGED (NORMAL) Basophilic Stippling MOD (NORMAL) Prothrombin Time 10.3 SEC (9.8-11.6) Prothromb Time International Ratio 1.0 RATIO Activated Partial Thromboplast Time 25.3 SEC (24.3-30.1) Fibrinogen 449 mg/dL (227-377) Blood Urea Nitrogen 21 MG/DL (7-18) Creatinine 1.21 MG/DL (0.60-1.30) Random Glucose 151 MG/DL (74-106) Total Protein 4.6 GM/DL (6.4-8.2) Albumin 1.7 GM/DL (3.4-5.0) Calcium Level 7.1 MG/DL (8.5-10.1) Phosphorus Level 1.8 MG/DL (2.5-4.9) Magnesium Level 1.5 MG/DL (1.5-2.5) Alkaline Phosphatase 120 U/L (45-117) Aspartate Amino Transf (AST/SGOT) 90 U/L (15-37) Alanine Aminotransferase (ALT/SGPT) 90 U/L (12-78) Total Bilirubin 5.2 MG/DL (0.2-1.0) Sodium Level 144 MEQ/L (136-145) Potassium Level 3.0 MEQ/L (3.5-5.1) Chloride Level 102 MEQ/L (98-107) Carbon Dioxide Level 34.7 MEQ/L (21.0-32.0) Anion Gap 7 MEQ/L (5-15) Estimat Glomerular Filtration Rate 58 ML/MIN (>89) Protein Corrected Calcium 8.5 MG/DL (8.5-10.1) Ammonia 34 MCMOL/L (11-32) Total Creatine Kinase 376 U/L (39-308) Creatine Kinase MB 2.3 NG/ML (0.5-3.6) Creatine Kinase MB % 0.6 % (0.0-4.0) Troponin I 0.09 NG/ML (0.02-0.05) Amylase Level 243 U/L (25-115) Lipase 700 U/L (73-393) Free Thyroxine 1.18 NG/DL (0.76-1.46) Thyroid Stimulating Hormone 3rd Gen 0.199 uIU/ML (0.358-3.740) Lactic Acid Level 2.9 mmol/L (0.4-2.0) Imaging Last Impressions Chest X-Ray 12/06/17 0000 Signed Impressions: Service Date/Time: Wednesday, December 06, 2017 07:38 - CONCLUSION: 1. Small left pleural effusion. 2. Cardiomegaly. 3. No acute focal pulmonary infiltrate or pulmonary vascular congestion. Allen Tony MD Abdomen X-Ray [id number]/[id number] Signed Impressions: Service Date/Time: Sunday, December 03, 2017 18:15 - CONCLUSION: Nonspecific abdomen. Luz Jean MD Bile Duct Drainage 12/03/17 Signed Impressions: Service Date/Time: Sunday, December 03, 2017 14:10 - CONCLUSION: Uncomplicated biliary stent placement as above. Bj Hurtado MD Abdomen/Pelvis CT 12/03/17 0000 Signed Impressions: Service Date/Time: December 02:42 - CONCLUSION: 1. Moderate volume hemoperitoneum. 2. Interval placement of a right internal/external biliary drainage catheter. This is in good position. Jung Lundberg Jr., MD Cholangiopancreatography MRI 12/02/17 0000 Signed Impressions: Service Date/Time: Saturday, December 02, 2017 08:17 - CONCLUSION: 1. Significant dilatation of the intrahepatic ducts ending at the confluence and possibility of stricture at this site or a Klatskin's tumor which is not visualized should be entertained. 2. Wedge-shaped focal fat right hepatic lobe. Luz Jean MD Abdomen Ultrasound 12/01/17 0000 Signed Impressions: Service Date/Time: Friday, December 01, 2017 11:49 - CONCLUSION: 1. Intrahepatic biliary duct dilatation better seen on the CT examination. A lesion at the biliary duct confluence/common hepatic duct region still needs to be suspected. An ERCP or MRCP could be used to further evaluate this region. 2. Suspected area of focal hepatic steatosis at the anterior segment right lobe of the liver. 3. Gallstones Landry Zarate MD Objective Remarks Physical Exam GEN: Awake and responsive in bed. Responds appropriately to questions. NAD. CV: RRR no rubs, gallops, or murmurs appreciated. equal, strong pulses bilaterally. Resp: CTA bilaterally, no wheezes, rhonchi, or rales noted. Abdomen: soft, tender diffusely, moderately distended. + fluid wave. no rebound. Drain in place and functional. Skin: mild jaundice that has decreased in intensity and extension. Extremities: pitting edema and near anasarca with some pitting edema lower dependent body. Procedures 12/04/17 - Exploratory laparotomy, liver laceration repair 12/03/17 - Biliary drainage Medications and IVs Current Medications Medications (Trade) Dose Ordered Sig/Rafa Route PRN Reason Start Time Stop Time Status Last Admin Dose Admin Sodium Chloride (NS Flush) 2 ml UNSCH PRN IV FLUSH FLUSH AFTER USING IV ACCESS 12/01/17 11:00 Sodium Chloride (NS Flush) 2 ml BID IV FLUSH 12/01/17 21:00 12/06/17 09:23 Ondansetron HCl (Zofran Inj) 4 mg Q6H PRN IVP NAUSEA OR VOMITING 12/01/17 11:00 12/03/17 20:00 Acetaminophen/ Hydrocodone Bitart (Stanton 5-325 Mg) 1 tab Q4H PRN PO PAIN SCALE 3 TO 5 12/01/17 11:00 Acetaminophen/ Hydrocodone Bitart (Stanton 10-325 Mg) 1 tab Q4H PRN PO PAIN SCALE 6 TO 10 12/01/17 11:00 Naloxone HCl (Narcan Inj) 0.4 mg UNSCH PRN IV PUSH SEE LABEL COMMENTS 12/01/17 11:00 Senna/Docusate Sodium (Deedee-Colace) 1 tab BID PO 12/01/17 21:00 12/05/17 20:43 Magnesium Hydroxide (Milk Of Magnesia Liq) 30 ml Q12H PRN PO Mild constipation 12/01/17 11:00 12/02/17 16:20 Sennosides (Senokot) 17.2 mg Q12H PRN PO Moderate constipation 12/01/17 11:00 Bisacodyl (Dulcolax Supp) 10 mg DAILY PRN RECTAL SEVERE CONSITIPATION 12/01/17 11:00 Lactulose (Lactulose Liq) 30 ml DAILY PRN PO SEVERE CONSITIPATION 12/01/17 11:00 Finasteride (Proscar) 5 mg DAILY PO 12/02/17 09:00 Future Hold Levothyroxine Sodium (Synthroid) 112 mcg DAILY@0600 PO 12/02/17 06:00 12/06/17 05:36 Prednisone (Deltasone) 5 mg DAILY PO 12/02/17 09:00 Future Hold Piperacillin Sod/ Tazobactam Sod 50 ml @ 100 mls/hr Q6H IV 12/01/17 16:00 12/06/17 09:27 Terbutaline Sulfate (Brethine Inj) 1 mg UNSCH PRN SQ For Extravasation 12/03/17 22:15 Chlorhexidine Gluconate (Peridex 0.12% Liq) 15 ml BID@08,20 MT 12/04/17 08:00 12/06/17 08:26 Pantoprazole Sodium (Protonix Inj) 40 mg Q12H IV PUSH 12/04/17 02:00 12/06/17 02:01 Potassium Chloride 100 ml @ 50 mls/hr Q2H PRN IV For Potassium 2.8 - 3.2 mEq/L 12/05/17 07:15 12/05/17 07:52 Potassium Chloride 100 ml @ 50 mls/hr Q2H PRN IV For Potassium 2.8 - 3.2 mEq/L 12/05/17 07:15 Potassium Bicarb/ Potassium Chloride (K-Lyte Cl Eff) 50 meq UNSCH PRN PO For Potassium 3.3 - 3.5 mEq/L 12/05/17 07:15 Potassium Chloride 100 ml @ 25 mls/hr UNSCH PRN IV For Potassium 3.3 - 3.5 mEq/L 12/05/17 07:15 Potassium Chloride 100 ml @ 50 mls/hr Q2H PRN IV For Potassium 3.3 - 3.5 mEq/L 12/05/17 07:15 Magnesium Sulfate 4 gm/Sodium Chloride 100 ml @ 50 mls/hr UNSCH PRN IV For Magnesium 0.9 - 1.1 mg/dL 12/05/17 07:15 Magnesium Oxide (Mag-Ox) 800 mg UNSCH PRN PO For Magnesium 1.2 - 1.6 mg/dL 12/05/17 07:15 Magnesium Sulfate 2 gm/Sodium Chloride 100 ml @ 50 mls/hr UNSCH PRN IV For Magnesium 1.2 - 1.6 mg/dL 12/05/17 07:15 Potassium Phosphate (K-Phos) 2,000 mg Q4H PRN PO For Phosphorus < 2.5 mg/dL 12/05/17 07:15 Sodium Phosphate 30 mmol/Sodium Chloride 250 ml @ 42 mls/hr UNSCH PRN IV For Phosphorus < 2.5 mg/dL 12/05/17 07:15 Potassium Phosphate (K-Phos) 2,000 mg UNSCH PRN PO/TUBE SEE LABEL COMMENTS 12/05/17 07:15 Potassium Phosphate 30 mmol/ Sodium Chloride 260 ml @ 42 mls/hr UNSCH PRN IV SEE LABEL COMMENTS 12/05/17 07:15 Fluconazole/ Sodium Chloride 200 ml @ 100 mls/hr Q24H IV 12/06/17 17:00 Albuterol/ Ipratropium (Duoneb Neb) 1 ampule Q6HR NEB NEB 12/05/17 22:00 12/06/17 10:03 Albuterol Sulfate (Albuterol Neb) 2.5 mg Q2HR NEB PRN NEB dyspnea 12/05/17 22:00 Metoprolol Tartrate (Lopressor Inj) 2.5 mg Q6H PRN IV PUSH HR>120 12/06/17 13:00 Furosemide (Lasix Inj) 40 mg Q8H IV PUSH 12/06/17 09:00 12/06/17 07:34 Albumin Human 100 ml @ 60 mls/hr Q8H IV 12/06/17 13:00 Hydrocortisone Sodium Succinate (SoluCORTEF INJ) 50 mg Q8HR IV PUSH 12/06/17 14:00 A/P Assessment and Plan 82 yo male with h/o PMR, BPH, hyperlipidemia presenting with: Problem List: (1) Liver hemorrhage ICD Codes: K76.89 - Other specified diseases of liver Status: Acute Plan: from procedure for dilated duct in liver, s/p surgery on the to repair the liver and stop bleeding. stable now. surgery team will evaluate for additional surgery post drainage removal. appreciate help from Dr Montero and Intensivists (2) Abdominal pain ICD Codes: R10.9 - Unspecified abdominal pain Status: Acute Plan: Sudden onset abdominal pain worst in RUQ - has since progressed to tenderness to deep palpation, minimal pain. CT findings as above MRCP findings as above Significant leukocytosis on admission initially improved with Zosyn, now increased post-operatively above 50k, CCM explained that this presentation manifests as a result of hemorrhagic shock and stress his body underwent. UA with hematuria, many WBC on admission UCx growing staph epidermidis Item Value Date Time Tumor Marker Alpha Fetoprotein 1.9 NG/ML 12/02/17 0724 Carcinoembryonic Antigen 1.0 NG/ML 12/02/17 0724 CA 19-9 Antigen 85.0 U/ML H 12/02/17 0724 Differential including malignancy, choledocholithiasis, cholecystitis, kidney stone, UTI - Currently in ICU - care coordinated with GI, surgery, ICU, and FM Med team Tabatha MATOS has signed off. - Zosyn 3.375 Q6H IV for to cover UTI, abdominal pathogens initially, will continue for duration of surgical drainage and consider d/c at that time. - Fluconazole added by [facility] for Marielle albicans in body fluid culture. - Diet can be advanced per surgery when he is ready - f/u outpatient pending GI diagnostic impression - still needs to determine the presence of tumor vs not. - pending feedback from CCM and surgery, possible imaging to evaluate his increased lipase level of 700. (3) Polymyalgia rheumatica ICD Codes: M35.3 - Polymyalgia rheumatica Status: Chronic Plan: Pain stable, was on 5 mg of prednisone which is enough to suppress his adrenals. he is on some stress dose steroids to help him with his current problems but he can likely be weaned back down to 5 mg once this crisis is over Steroids were decreased by half as a means to control fluids and avoid 3rd spacing of fluid. (4) BPH (benign prostatic hyperplasia) ICD Codes: N40.0 - Benign prostatic hyperplasia without lower urinary tract symptoms Status: Chronic Plan: Symptoms currently well controlled, continue home finasteride (holding for now post-operatively) will need to restart as he could have urinary retention when catheter D/Cal (5) Hypothyroidism ICD Codes: E03.9 - Hypothyroidism, unspecified Status: Chronic Plan: Continue home Synthroid (6) Urinary tract infection in male ICD Codes: N39.0 - Urinary tract infection, site not specified Status: Acute Plan: Has h/o UTIs in past ?complication with renal stone, very small (1-2 mm) urine is staph epidermitis sensitive to almost everything - Coverage with Zosyn as above, now on vanc as well - Unlikely true UTI; will continue coverage in this critically ill patient, consider discontinuing pending stabilization (7) FEN/PPX Plan: Fluids: per surgery and 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 will be here for days as he may need additional surgery Problem Qualifiers (1) Abdominal pain: Qualified Codes: R10.11 - Right upper quadrant pain (2) BPH (benign prostatic hyperplasia): Qualified Codes: N40.0 - Benign prostatic hyperplasia without lower urinary tract symptoms (3) Hypothyroidism: Qualified Codes: E03.9 - Hypothyroidism, unspecified [place] MD Dec 06, 2017 10:28
--- NOTE | 2017-12-06 10:30 | HHI.CCPN ---
Subjective Remarks/Hospital Course 82-year-old male with past history of BPH, hyperlipidemia, PMR who is admitted to [facility] 12/01/17 with right upper quadrant abdominal pain and jaundice. LFTs were elevated in an obstructive pattern. CT demonstrated intrahepatic biliary duct dilatation. A mass was not clearly seen. 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 He underwent percutaneous biliary stent placement and drain by interventional radiology 12/03/17 (Dr. Hurtado). He was hypotensive post procedure and this was initially managed by family services specialist with 1.5 L fluid resuscitation and stress dose steroids, abx for possible biliary sepsis. Hypotension persisted and he was transferred to ICU with critical care medicine consult. When I went to evaluate the patient he appeared pale with cool skin concerning for hemorrhagic shock. CBC demonstrated leukocytosis 27.5 and hemoglobin was 9.4 from a baseline of 13. Place central line and art line, started neosynephrine, began transfusing blood products until appropriately stabilized for transition to CT scanner. CT scan demonstrated moderate hemoperitoneum with hemorrhage adjacent to the liver. The biliary drain was in good position. Called Dr. Montero who will take patient to OR for emergent laparotomy. agreeable to risks of surgery. Upon transition to OR he had received PRBC 7 units, 2 units FFP and 1 gram calcium chloride with 1 more unit of FFP, 1 unit platelets, 1 unit cryo ready to transfuse. 12/04/17: Status post exploratory laparotomy and control of liver laceration bleeding by Dr. montero, findinL hemoperitoneum, Capsular tear Segment of the liver. Remains on Chas-Synephrine at 50 mcg/m. Repeat lab work showed platelet count of 50 hemoglobin of 11.9. Platelet transfusion ordered. at the bedside 12/05/17: Tolerating CPAP, follows commands but tachycardic. White count increased to 52,000 biliary fluid with Jabari. I have increase Diflucan to 40 mg daily and consulted ID. Urine output minimal, no response to fluid bolus. Weight up by 10 kg, will attempt diuresis 12/06/17: Extubated yesterday. Breathing comfortably. Tachycardic up to 160s, white count remains high at 50,000, tachycardia most likely from SIRS response/ sepsis. Responded to beta thania. Urine output adequate with Lasix. 16 KG fluid up. Start scheduled Lasix 40 mg IV every 8 hours with IV albumin. Keep nothing by mouth until cleared by general surgery Objective Vital Signs Date Time Temp Pulse Resp B/P (MAP) Pulse Ox O2 Delivery O2 Flow Rate FiO2 12/06/17 10:06 97 Nasal Cannula 2.00 12/06/17 10:00 110 12/06/17 08:00 98.6 23 139/66 (90) 12/05/17 09:27 40 Intake and Output 12/06/17 12/06/17 12/07/17 08:00 16:00 00:00 Intake Total 1750 ml Output Total 1005 ml Balance 745 ml Result Diagram: 12/06/17 0545 12/06/17 0545 Other Results Microbiology Date/Time Source Procedure Growth Status 12/04/17 00:42 Fluid Bile Fluid Gram Stain - Final Complete 12/04/17 00:42 Body Fluid Culture - Final Jabari Albicans Complete Objective Remarks GENERAL: Pale appearing male, on nasal cannula. Appears critically ill SKIN: Cool to touch HEAD: Atraumatic. Normocephalic. EYES: Pupils equal and round. Pallor+ ENT: No nasal bleeding or discharge. Mucous membranes pale NECK: Trachea midline. Jugular veins + CARDIOVASCULAR: Tachycardic, regular. Heart rate in 140s now. No murmurs rubs or gallops. RESPIRATORY: Air entry equal bilaterally no wheezes or crackles. Left thorax ultrasound no significant pleural effusion GASTROINTESTINAL: Laparotomy dressing intact. Biliary and peritoneal drain in place. Peroneal drain with serosanguineous output-500 mL in 24 hours MUSCULOSKELETAL: Extremities without clubbing, cyanosis, or edema. NEUROLOGICAL: Alert awake oriented 3. No focal deficits A/P Assessment and Plan NEURO: Oxycodone and morphine for pain and vent synchrony Otherwise minimize sedation RESP: Acute respiratory failure with metabolic and respiratory acidemia History of tobacco use Extubated 12/05/17, tolerating well respiratory grullon. DuoNeb every 6 hours scheduled and when necessary Aggressive pulmonary toilet EzPAP and incentive spirometry CV: Hemorrhagic shock-resolved Sinus tachycardia/SIRS IV Lasix 40 mg IV every 8 hours, IV albumin 25 g every 8 hours Fluid balance up by 16 KG Stress dose steroids as per below Status post multiple blood and blood product transfusion as below GI: Intrahepatic biliary obstruction status post biliary stent and drain 12/03/16 ( Dr. Hurtado) Jabari cholangitis Liver laceration with hemoperitoneum Nothing by mouth- until cleared by general surgery s/p OR ex lap with Dr. Montero, and control of bleeding from liver capsular laceration GI following for biliary obstruction ? 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 Monitor intake and output. Monitor electrolyte. Replace electrolytes as indicated per replacement protocol Gave calcium chloride 1 g IV Holding Proscar due to hypotension- will resume Diuresis with IV lasix ID: Leukocytosis Severe sepsis Jabari cholangitis - Severe leukocytosis. severe sepsis s/p biliary stent, jabari albicans in biliary culture. On Zosyn, and Diflucan 400 daily ID consulted and discussed with Dr. Gill HEME: Acute blood loss anemia Thrombocytopenia Transfused 7 units packed red cells, 3 units FFP, 1 unit cryo on 12/03 - 12/04 Serial CBC and recheck coags. ENDO: Hypothyroidism Continue Synthroid 112 g by mouth daily- when cleared for PO intake Chronic prednisone Hydrocortisone 100 mg IV every 8 hours PROPH: SCDs for DVT prophylaxis. Holding Lovenox due to acute hemorrhage. Protonix 40 mg IV q12 until able to r/o GI source of bleeding. ACCESS: Right IJ central venous line placed 12/03/17 #4. Left femoral art line placed 12/03/17 #3-Dc Today CCT 40 minutes exclusive of separately billable procedures. Time spent at bedside actively were resuscitating patient with blood products and pressors. Nettie Alatorre MD Dec 06, 2017 10:30
--- NOTE | 2017-12-06 12:35 | EKG ---
Date Performed: 12/06/2017 Time Performed: 06:57:00 PTAGE: 82 years EKG: Sinus tachycardia with PAC(s). Left axis deviation Right bundle branch block Low QRS voltag es in precordial leads Abnormal ECG PREVIOUS TRACING 12/01/17 Since previous tracing, heart rate is faster; otherwise, no signific ant change. DOCTOR: Wisam Medina Interpretating Date/Time 12/06/2017 12:34:21
[2017-12-06] MEDS: ALBUMIN 25% INJ 100 ML IV SCH ×2 (13:26→20:23)
[2017-12-06 15:54] LABS: HEMATOCRIT 27.1 % (39.0-51.0); HEMOGLOBIN 8.7 GM/DL (13.0-17.0); MEAN CELL VOLUME 87.9 FL (80.0-100.0); MEAN CORPUSCULAR HEMOGLOBIN 28.3 PG (27.0-34.0); MEAN CORPUSCULAR HGB CONC 32.2 % (32.0-36.0); MEAN PLATELET VOLUME 10.5 FL (7.0-11.0); PLATELET COUNT 82 TH/MM3 (150-450); RED BLOOD COUNT 3.09 MIL/MM3 (4.50-5.90); RED CELL DISTRIBUTION WIDTH 16.3 % (11.6-17.2); WHITE BLOOD COUNT 47.6 TH/MM3 (4.0-11.0)
--- NOTE | 2017-12-06 15:59 | HHI.PR ---
cc: Ronnie Pierre MD Subjective Subjective Notes DAILY PROGRESS NOTE FOR SURGICAL ATTENDING, DR. RONNIE PIERRE Patient extubated Patient feels good Patient would like something to drink at bedside Objective Vitals/I&O Vital Signs Date Time Temp Pulse Resp B/P (MAP) Pulse Ox O2 Delivery O2 Flow Rate FiO2 12/06/17 14:00 114 12/06/17 12:00 98.1 21 119/56 (48) 96 12/06/17 10:06 Nasal Cannula 2.00 12/05/17 09:27 40 Labs Laboratory Tests Test 12/06/17 05:45 12/06/17 06:45 12/06/17 15:10 White Blood Count 50.1 Red Blood Count 3.46 Hemoglobin 9.9 Hematocrit 30.3 Mean Corpuscular Volume 87.6 Mean Corpuscular Hemoglobin 28.5 Mean Corpuscular Hemoglobin Concent 32.5 Red Cell Distribution Width 16.5 Platelet Count 88 Mean Platelet Volume 10.9 Neutrophils (%) (Auto) 86.3 Lymphocytes (%) (Auto) 1.1 Monocytes (%) (Auto) 12.5 Eosinophils (%) (Auto) 0.0 Basophils (%) (Auto) 0.1 Neutrophils # (Auto) 43.2 Lymphocytes # (Auto) 0.5 Monocytes # (Auto) 6.2 Eosinophils # (Auto) 0.0 Basophils # (Auto) 0.1 CBC Comment AUTO DIFF Differential Total Cells Counted 100 Neutrophils % (Manual) 90 Band Neutrophils % 1 Lymphocytes % 1 Monocytes % 8 Neutrophils # (Manual) 45.6 Differential Comment FINAL DIFF MANUAL Platelet Estimate LOW Platelet Morphology Comment ENLARGED Basophilic Stippling MOD Prothrombin Time 10.3 Prothromb Time International Ratio 1.0 Activated Partial Thromboplast Time 25.3 Fibrinogen 449 Blood Urea Nitrogen 21 Creatinine 1.21 Random Glucose 151 Total Protein 4.6 Albumin 1.7 Calcium Level 7.1 Phosphorus Level 1.8 Magnesium Level 1.5 Alkaline Phosphatase 120 Aspartate Amino Transf (AST/SGOT) 90 Alanine Aminotransferase (ALT/SGPT) 90 Total Bilirubin 5.2 Sodium Level 144 Potassium Level 3.0 Chloride Level 102 Carbon Dioxide Level 34.7 Anion Gap 7 Estimat Glomerular Filtration Rate 58 Protein Corrected Calcium 8.5 Ammonia 34 Total Creatine Kinase 376 Creatine Kinase MB 2.3 Creatine Kinase MB % 0.6 Troponin I 0.09 Amylase Level 243 Lipase 700 Free Thyroxine 1.18 Thyroid Stimulating Hormone 3rd Gen 0.199 Lactic Acid Level 2.9 Date/Time Source Procedure Growth Status 12/03/17 20:54 Blood Peripheral Aerobic Blood Culture - Preliminary NO GROWTH IN 3 DAYS Resulted 12/03/17 20:54 Blood Peripheral Anaerobic Blood Culture - Preliminary NO GROWTH IN 3 DAYS Resulted 12/04/17 00:42 Fluid Bile Fluid Gram Stain - Final Complete 12/04/17 00:42 Body Fluid Culture - Final Marielle Albicans Complete 12/01/17 06:30 Urine Clean Catch Urine Culture - Final Staphylococcus Epidermidis Complete Radiology Last Impressions Chest X-Ray 12/06/17 0000 Signed Impressions: Service Date/Time: Wednesday, December 06, 2017 07:38 - CONCLUSION: 1. Small left pleural effusion. 2. Cardiomegaly. 3. No acute focal pulmonary infiltrate or pulmonary vascular congestion. Allen Tony MD Abdomen X-Ray 12/03/[id number] Signed Impressions: Service Date/Time: Sunday, December 03, 2017 18:15 - CONCLUSION: Nonspecific abdomen. Luz Jean MD Bile Duct Drainage 12/03/17 0000 Signed Impressions: Service Date/Time: Sunday, December 03, 2017 14:10 - CONCLUSION: Uncomplicated biliary stent placement as above. Bj Hurtado MD Abdomen/Pelvis CT 12/03/17 0000 Signed Impressions: Service Date/Time: December 02:42 - CONCLUSION: 1. Moderate volume hemoperitoneum. 2. Interval placement of a right internal/external biliary drainage catheter. This is in good position. Jung Lundberg Jr., MD Cholangiopancreatography MRI 12/02/17 0000 Signed Impressions: Service Date/Time: Saturday, December 02, 2017 08:17 - CONCLUSION: 1. Significant dilatation of the intrahepatic ducts ending at the confluence and possibility of stricture at this site or a Klatskin's tumor which is not visualized should be entertained. 2. Wedge-shaped focal fat right hepatic lobe. Luz Jean MD Abdomen Ultrasound 12/01/17 0000 Signed Impressions: Service Date/Time: Friday, December 01, 2017 11:49 - CONCLUSION: 1. Intrahepatic biliary duct dilatation better seen on the CT examination. A lesion at the biliary duct confluence/common hepatic duct region still needs to be suspected. An ERCP or MRCP could be used to further evaluate this region. 2. Suspected area of focal hepatic steatosis at the anterior segment right lobe of the liver. 3. Gallstones Landry Zarate MD Cardiovascular: Regular Lungs: Clear Abdomen: Other (Jasson-Regalado drain in place with serosanguineous drainage. Dressing changed wound healing well), Post-op tenderness Extremities: Perfused Narrative Exam Abdomen slightly distended no rebound or guarding appropriate postop tenderness A/P Assessment and Plan POD2 exp lap for liver lacertion supportive care will follow labs and drain output I suspect elevated white count from stress and steroid no signs of active infection at the surgical wound Discussed with Dr. Alatorre critical-care Attending Statement NOTE FOR SURGICAL ATTENDING, DR. RONNIE PIERRE I attest that I had a [id number] encounter with the patient on the same day, and personally performed and documented my assessment and findings in the medical record. The following services were provided during this hospital visit: Chart data review, vital sign assessments/reviewing monitor data Review of consultations notes if present. Medication orders/review and/or management Ordering and/or reviewing lab tests Ordering and/or interpreting/reviewing x-rays and/or diagnostic studies Care of the patient and discussion of the patient with the care team Documentation time To help prompt me to consider important information that might be impacting today's encounter and assessment, information from prior notes written by myself or my colleagues may have been "brought forward/copy and pasted" into today's note. Ronnie Pierre MD Dec 06, 2017 15:59
[2017-12-06 16:37] LABS: BANDS 2 % (0-6); CORRECTED NUCLEATED RBC 1 /100 WBC (0-0); LYMPHOCYTES 1 % (9-44); METAMYELOCYTES 2 % (0-1); MONOCYTES 2 % (0-8); NEUTROPHIL # MANUAL DIFF 46.2 TH/MM3 (1.8-7.7); NUCLEATED RED BLOOD CELL 1 (0-0); POLYS (SEG NEUTROPHILS) 93 % (16-70)
[2017-12-06] MEDS: FLUCONAZOLE 400 MG PREMIX BAG 200 ML IV SCH (17:04)
[2017-12-06] MEDS: POTASSIUM CHLOR 40 MEQ PREMIX 100 ML IV PRN (17:29)
[2017-12-06 18:41] LABS: ALBUMIN 2.6 GM/DL (3.4-5.0); ALKALINE PHOSPHATASE 101 U/L (45-117); ALT (GPT) 70 U/L (12-78); AST (GOT) 72 U/L (15-37); BICARBONATE 37.8 MEQ/L (21.0-32.0); CALCIUM 7.7 MG/DL (8.5-10.1); CHLORIDE 102 MEQ/L (98-107); CREATININE 1.15 MG/DL (0.60-1.30); GLOMERULAR FILTRATION RATE 61 ML/MIN (>89); GLUCOSE,RANDOM 128 MG/DL (74-106); SODIUM (NA) 146 MEQ/L (136-145); TOTAL BILIRUBIN ADULT 5.7 MG/DL (0.2-1.0); TOTAL PROTEIN 5.3 GM/DL (6.4-8.2)
[2017-12-06 18:42] LABS: BLOOD UREA NITROGEN 21 MG/DL (7-18)
[2017-12-06] MEDS ORDERED: TEMAZEPAM 7.5 MG CAP PO ONE (23:15)
[2017-12-07] VITALS (14 sets, daily range): BP systolic 100–120; BP diastolic 50–68; PULSE 80–124; RESP 15–25; TEMP 98.1–98.7; O2SAT 96–99
[2017-12-07] MEDS: FUROSEMIDE 40 MG/4 ML VIAL IV PUSH SCH ×2 (01:08→09:24)
[2017-12-07] MEDS: PANTOPRAZOLE SODIUM 40 MG VIAL IV PUSH SCH ×2 (01:08→13:08)
[2017-12-07 03:56] LABS: HEMOGLOBIN 8.1 GM/DL (13.0-17.0); LYMPH % 1.7 % (9.0-44.0); LYMPHOCYTE # 0.7 TH/MM3 (1.0-4.8); MEAN CELL VOLUME 87.6 FL (80.0-100.0); MEAN CORPUSCULAR HEMOGLOBIN 28.2 PG (27.0-34.0); MEAN CORPUSCULAR HGB CONC 32.2 % (32.0-36.0); MEAN PLATELET VOLUME 10.1 FL (7.0-11.0); MONOCYTE # 4.6 TH/MM3 (0-0.9); NEUT % 87.3 % (16.0-70.0); PLATELET COUNT 98 TH/MM3 (150-450); RED BLOOD COUNT 2.86 MIL/MM3 (4.50-5.90); RED CELL DISTRIBUTION WIDTH 16.1 % (11.6-17.2); WHITE BLOOD COUNT 41.3 TH/MM3 (4.0-11.0)
[2017-12-07] MEDS: PIPERACIL-TAZO 3.375 GM PREMIX 50 ML IV SCH ×4 (04:08→21:18)
[2017-12-07] MEDS: ALBUMIN 25% INJ 100 ML IV SCH ×2 (04:08→13:10)
[2017-12-07 04:16] LABS: ALBUMIN 2.8 GM/DL (3.4-5.0); ALKALINE PHOSPHATASE 101 U/L (45-117); ALT (GPT) 62 U/L (12-78); AST (GOT) 58 U/L (15-37); BICARBONATE 39.5 MEQ/L (21.0-32.0); BLOOD UREA NITROGEN 22 MG/DL (7-18); CALCIUM 7.7 MG/DL (8.5-10.1); CHLORIDE 103 MEQ/L (98-107); CREATININE 1.07 MG/DL (0.60-1.30); GLOMERULAR FILTRATION RATE 66 ML/MIN (>89); GLUCOSE,RANDOM 120 MG/DL (74-106); LIPASE 232 U/L (73-393); MAGNESIUM 1.9 MG/DL (1.5-2.5); SODIUM (NA) 147 MEQ/L (136-145); TOTAL BILIRUBIN ADULT 5.8 MG/DL (0.2-1.0); TOTAL PROTEIN 5.2 GM/DL (6.4-8.2)
[2017-12-07 04:37] LABS: LYMPHOCYTES 3 % (9-44); MONOCYTES 3 % (0-8); MYELOCYTES 1 % (0-0); NEUTROPHIL # MANUAL DIFF 38.8 TH/MM3 (1.8-7.7); OVALOCYTES 1+ (NORMAL); POLYS (SEG NEUTROPHILS) 93 % (16-70)
[2017-12-07 04:38] LABS: STOMATOCYTES 1+ (NORMAL)
[2017-12-07] MEDS: RESP: ALBUTEROL 2.5 MG/IPRATROPIUM 0.5 MG NEB (SCH) NEB ×4 (04:48→22:03)
--- NOTE | 2017-12-07 05:17 | RADRPT ---
EXAM DATE/TIME: 12/07/2017 04:09 [facility] COMPARISON: CHEST SINGLE AP, December 06, 2017, 7:38. INDICATIONS : Respiratory disease. MEDICAL HISTORY : Renal calculi. SURGICAL HISTORY : Biliary stent. Cervical fusion. ENCOUNTER: Subsequent ACUITY: 4 - 6 days PAIN SCORE: Non-responsive. LOCATION: Bilateral FINDINGS: Single AP view of the chest. Left pleural effusion unchanged along with left lower lung atelectasis v ersus consolidation. Cardiomediastinal silhouette unchanged. No evidence of pneumothorax. CONCLUSION: No significant change. Persistent left pleural effusion and left lower lobe atelectasis versus consol idation. Jerry Laureano MD on December 07, 2017 at 5:15 Board Certified Radiologist. This report was verified electronically.
[2017-12-07] MEDS: LEVOTHYROXINE SODIUM 112 MCG TAB PO SCH (05:42)
[2017-12-07] MEDS: HYDROCORTISONE SOD SUCCINATE 100 MG VIAL IV PUSH SCH ×3 (05:42→21:22)
[2017-12-07] MEDS: POTASSIUM CHLOR 40 MEQ PREMIX 100 ML IV PRN ×3 (05:43→21:18)
[2017-12-07] MEDS: CHLORHEXIDINE 0.12% (ORAL KIT) 15 ML CUP MT SCH ×2 (07:19→21:17)
[2017-12-07] MEDS: DOCUSATE SODIUM 50 MG/SENNA 8.6 MG TAB PO SCH ×2 (09:24→21:18)
[2017-12-07] MEDS: FINASTERIDE 5 MG TAB PO SCH (09:24)
[2017-12-07] MEDS: SODIUM CHLORIDE 0.9% FLUSH 10 ML FLUSH IV FLUSH SCH ×2 (09:24→21:00)
[2017-12-07] MEDS ORDERED: POTASSIUM CHLORIDE 10 MEQ CONTROLLED RELEASE TAB PO SCH (13:00)
--- NOTE | 2017-12-07 13:02 | HHI.FPPN ---
Subjective Remarks Mr Rios is awake and alert today and still refuses to take any pain meds. he does not move much in bed however. When asked he says, "tell me when to move and I'll move I don't need pain medicine." He refuses even tylenol. He was able to eat jello and other liquids and was cleared to take pills per surgery today. per his nurse, he has sinus tachycardia on occasion bit was able to rest well with Restoril at night. Otherwise he denied any pain or problems and reported he was breathing well. Objective Vitals Vital Signs Date Time Temp Pulse Resp B/P (MAP) Pulse Ox O2 Delivery O2 Flow Rate FiO2 12/07/17 12:00 110 12/07/17 12:00 98.1 110 19 100/68 (79) 97 12/07/17 11:24 98 Nasal Cannula 2.00 12/07/17 10:00 85 12/07/17 08:00 98.7 98 15 102/55 (71) 97 12/07/17 08:00 80 12/07/17 07:00 98 Nasal Cannula 2.00 12/07/17 06:00 109 12/07/17 04:00 98.6 98 18 120/50 (73) 96 12/07/17 04:00 98 12/07/17 02:00 85 12/07/17 00:00 104 12/07/17 00:00 98.7 100 25 111/59 (76) 98 12/06/17 22:20 96 Nasal Cannula 2.00 12/06/17 22:00 108 12/06/17 20:00 98.6 107 28 108/53 (71) 96 12/06/17 20:00 107 12/06/17 19:00 98 Nasal Cannula 2.00 40 12/06/17 18:00 110 12/06/17 16:00 98.1 101 11 112/51 (71) 98 12/06/17 16:00 101 12/06/17 14:00 114 I/O 12/06/17 12/06/17 12/06/17 12/07/17 12/07/17 12/07/17 07:00 15:00 23:00 07:00 15:00 23:00 Intake Total 1750 ml 1300 ml 150 ml 200 ml 150 ml Output Total 1005 ml 2110 ml 1830 ml Balance 745 ml 1300 ml -1960 ml -1630 ml 150 ml Intake Oral 250 ml IV Total 1500 ml 1300 ml 150 ml 200 ml 150 ml Output Urine Total 600 ml 1800 ml 1700 ml Drainage Total 405 ml 310 ml 130 ml # Bowel Movements 0 0 1 Result Diagram: 12/07/1732912/07/17329 Objective Remarks Physical Exam GEN: Awake and responsive in bed. Responds appropriately to questions. NAD. CV: RRR no rubs, gallops, or murmurs appreciated. equal, strong pulses bilaterally. Resp: CTA bilaterally, no wheezes, rhonchi, or rales noted. Abdomen: soft, tender diffusely, moderately distended. + fluid wave. no rebound. Drain in place and functional. Skin: mild jaundice that has decreased in intensity and extension. Extremities: less edema hands and little to none of lower extremities Procedures 12/04/17 - Exploratory laparotomy, liver laceration repair 12/03/17 - Biliary drainage A/P Assessment and Plan 82 yo male with h/o PMR, BPH, hyperlipidemia presenting with: Problem List: (1) Liver hemorrhage ICD Codes: K76.89 - Other specified diseases of liver Status: Acute Plan: from procedure for dilated duct in liver, s/p surgery on the to repair the liver and stop bleeding. stable now. surgery team will evaluate for additional surgery post drainage removal. appreciate help from Dr Montero and Intensivists (2) Abdominal pain ICD Codes: R10.9 - Unspecified abdominal pain Status: Acute Plan: Sudden onset abdominal pain worst in RUQ - has since progressed to tenderness to deep palpation with minimal pain. CT findings as above MRCP findings as above Significant leukocytosis on admission initially improved with Zosyn, now increased post-operatively above 50k, CCM explained that this presentation manifests as a result of hemorrhagic shock and stress his body underwent. UA with hematuria, many WBC on admission UCx growing staph epidermidis Item Value Date Time Tumor Marker Alpha Fetoprotein 1.9 NG/ML 12/02/1724 Carcinoembryonic Antigen 1.0 NG/ML 12/02/1724 CA 19-9 Antigen 85.0 U/ML H 12/02/17 0724 Differential including malignancy, choledocholithiasis, cholecystitis, kidney stone, UTI - Currently in ICU - care coordinated with GI, surgery, ICU, and FM Med team Tabatha MATOS has signed off. - Zosyn 3.375 Q6H IV for to cover UTI, abdominal pathogens initially, will continue for duration of surgical drainage and consider d/c at that time. - Fluconazole added by [facility] for Marielle albicans in body fluid culture. - Diet can be advanced per surgery when he is ready - f/u outpatient pending GI diagnostic impression - still needs to determine the presence of tumor vs not. - pending feedback from [facility] and surgery, possible imaging to evaluate his increased lipase level of 700. (3) Polymyalgia rheumatica ICD Codes: M35.3 - Polymyalgia rheumatica Status: Chronic Plan: Pain stable, was on 5 mg of prednisone which is enough to suppress his adrenals. he is on some stress dose steroids to help him with his current problems but he can likely be weaned back down to 5 mg once this crisis is over Steroids were decreased by half as a means to control fluids and avoid 3rd spacing of fluid. his hydrocortisone was cut again and should be weaned as he is past the stress of surgery (4) BPH (benign prostatic hyperplasia) ICD Codes: N40.0 - Benign prostatic hyperplasia without lower urinary tract symptoms Status: Chronic Plan: Symptoms currently well controlled, continue home finasteride as he could have urinary retention when catheter D/Cal (5) Hypothyroidism ICD Codes: E03.9 - Hypothyroidism, unspecified Status: Chronic Plan: Continue home Synthroid (6) Leukocytosis ICD Codes: D72.829 - Elevated white blood cell count, unspecified Status: Acute Plan: very high WBCs discussed with [employer] and WBCs in the 50s can occur with intraabdominal processes and infections. He has been found to have a candidal infection. Have been weaning him down on his steroids which could also be pushing up his WBC. - Coverage with Zosyn as above, now on vanc as well as fluconazole appreciate help ID (7) FEN/PPX Plan: Fluids: per surgery and [employer] Electrolytes: Monitor and replace PRN, should be on ICU protocol. will give some po K as he is being diuresed and can take pills now Nutrition: Diet regular basic once able to start eating again DVT: Lovenox 40 mg SQ daily initially, unsure when he can resume as he had a serious life threatening bleed. watching his platelets Dispo: admitted. will be here for days as he is continuing to recover Problem Qualifiers (1) Abdominal pain: Qualified Codes: R10.11 - Right upper quadrant pain (2) BPH (benign prostatic hyperplasia): Qualified Codes: N40.0 - Benign prostatic hyperplasia without lower urinary tract symptoms (3) Hypothyroidism: Qualified Codes: E03.9 - Hypothyroidism, unspecified (4) Leukocytosis: Qualified Codes: D72.829 - Elevated white blood cell count, unspecified La Wood MD Dec 07, 2017 13:02
--- NOTE | 2017-12-07 14:13 | HHI.PR ---
Addendum to Inpatient Note Addendum Reason: Additional Documentation Additional Information Revealed a liver laceration. Off service note Mr. Rios is a 82-year-old man with a PMH of BPH, hyperlipidemia, polymyalgia rheumatica who presented to the ED with 1 day history of sharp, consisted RUQ abdominal pain. He was also found to be jaundiced for the past few days at that time. His CT abdomen and pelvis on 12/01 showed intrahepatic biliary duct dilatation without extrahepatic biliary duct dilatation concern for a lesion at the intrahepatic biliary duct confluence/common hepatic duct level. An MRCP performed on 12/02 showed the same findings but also added that there was a possibility of stricture at the site or Klatskin's tumor which was not visualized. His CA 19-9 antigen was elevated to 85. On 12/03 a stent was placed in the biliary duct IR and was drained. The patient later was called for a Halicat that night. He was found to be hypotensive. He was given a 1 L NS bolus. Resident team was paged again later that evening twice for concerns of hypotension. At the first call he was transferred to the ICU due to concerns for adrenal insufficiency. Later, he was sent for a stat CT of the abdomen and pelvis which revealed hemoperitoneum. General surgery was called and they performed a stat exploratory laparotomy which revealed a liver laceration on 12/04. The patient was taken intubated back to the ICU. Patient was extubated on 12/05. Marielle Albicans was found growing in his bile fluid culture. ID was consulted and started the patient on fluconazole 400mg. Of note, the patient was also found to have a UTI upon admission that eventually grew staph epidermidis. The patient was placed on Zosyn for this and possible abdominal pathogens at that time. Thea Lassiter MD R1 Dec 07, 2017 14:13
--- NOTE | 2017-12-07 15:26 | HHI.CCPN ---
Subjective Remarks/Hospital Course 82-year-old male with past history of BPH, hyperlipidemia, PMR who is admitted to [facility] 12/01/17 with right upper quadrant abdominal pain and jaundice. LFTs were elevated in an obstructive pattern. CT demonstrated intrahepatic biliary duct dilatation. A mass was not clearly seen. 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 He underwent percutaneous biliary stent placement and drain by interventional radiology 12/03/17 (Dr. Hurtado). He was hypotensive post procedure and this was initially managed by adult family home program manager with 1.5 L fluid resuscitation and stress dose steroids, abx for possible biliary sepsis. Hypotension persisted and he was transferred to ICU with critical care medicine consult. When I went to evaluate the patient he appeared pale with cool skin concerning for hemorrhagic shock. CBC demonstrated leukocytosis 27.5 and hemoglobin was 9.4 from a baseline of 13. Place central line and art line, started neosynephrine, began transfusing blood products until appropriately stabilized for transition to CT scanner. CT scan demonstrated moderate hemoperitoneum with hemorrhage adjacent to the liver. The biliary drain was in good position. Called Dr. Montero who will take patient to OR for emergent laparotomy. agreeable to risks of surgery. Upon transition to OR he had received PRBC 7 units, 2 units FFP and 1 gram calcium chloride with 1 more unit of FFP, 1 unit platelets, 1 unit cryo ready to transfuse. 12/04/17: Status post exploratory laparotomy and control of liver laceration bleeding by Dr. montero, findinL hemoperitoneum, Capsular tear Segment of the liver. Remains on Chas-Synephrine at 50 mcg/m. Repeat lab work showed platelet count of 50 hemoglobin of 11.9. Platelet transfusion ordered. at the bedside 12/05/17: Tolerating CPAP, follows commands but tachycardic. White count increased to 52,000 biliary fluid with Jabari. I have increase Diflucan to 40 mg daily and consulted ID. Urine output minimal, no response to fluid bolus. Weight up by 10 kg, will attempt diuresis 12/06/17: Extubated yesterday. Breathing comfortably. Tachycardic up to 160s, white count remains high at 50,000, tachycardia most likely from SIRS response/ sepsis. Responded to beta thania. Urine output adequate with Lasix. 16 KG fluid up. Start scheduled Lasix 40 mg IV every 8 hours with IV albumin. Keep nothing by mouth until cleared by general surgery Subjective 12/07: Afebrile. Heart rate in the 120s. Off all vasopressors. Tolerating full liquid diet. Positive BM 1. Pain control. Objective Vital Signs Date Time Temp Pulse Resp B/P (MAP) Pulse Ox O2 Delivery O2 Flow Rate FiO2 12/07/17 14:00 124 12/07/17 12:00 98.1 19 100/68 (79) 97 12/07/17 11:24 Nasal Cannula 2.00 12/06/17 19:00 40 Intake and Output 12/07/17 12/07/17 12/08/17 08:00 16:00 00:00 Intake Total 150 ml 250 ml Output Total 1830 ml Balance -1680 ml 250 ml Result Diagram: 12/07/17 0330 12/07/17 0330 Other Results Microbiology Date/Time Source Procedure Growth Status 12/03/17 20:54 Blood Peripheral Aerobic Blood Culture - Preliminary NO GROWTH IN 4 DAYS Resulted 12/03/17 20:54 Blood Peripheral Anaerobic Blood Culture - Preliminary NO GROWTH IN 4 DAYS Resulted 12/04/17 00:42 Fluid Bile Fluid Gram Stain - Final Complete 12/04/17 00:42 Body Fluid Culture - Final Jabari Albicans Complete 12/01/17 06:30 Urine Clean Catch Urine Culture - Final Staphylococcus Epidermidis Complete Imaging Last Impressions Chest X-Ray 12/07/17 0600 Signed Impressions: Service Date/Time: Thursday, December 07, 2017 04:09 - CONCLUSION: No significant change. Persistent left pleural effusion and left lower lobe atelectasis versus consolidation. Jerry Laureano MD Abdomen X-Ray 12/03/17 1808 Signed Impressions: Service Date/Time: Sunday, December 03, 2017 18:15 - CONCLUSION: Nonspecific abdomen. K. Gurvinder Jean MD Bile Duct Drainage 12/03/17 0000 Signed Impressions: Service Date/Time: Sunday, December 03, 2017 14:10 - CONCLUSION: Uncomplicated biliary stent placement as above. Bj Hurtado MD Abdomen/Pelvis CT 12/03/17 0000 Signed Impressions: Service Date/Time: December 02:42 - CONCLUSION: 1. Moderate volume hemoperitoneum. 2. Interval placement of a right internal/external biliary drainage catheter. This is in good position. Jung Lundberg Jr., MD Cholangiopancreatography MRI 12/02/17 0000 Signed Impressions: Service Date/Time: Saturday, December 02, 2017 08:17 - CONCLUSION: 1. Significant dilatation of the intrahepatic ducts ending at the confluence and possibility of stricture at this site or a Klatskin's tumor which is not visualized should be entertained. 2. Wedge-shaped focal fat right hepatic lobe. K. Gurvinder Jean MD Abdomen Ultrasound 12/01/17 0000 Signed Impressions: Service Date/Time: Friday, December 01, 2017 11:49 - CONCLUSION: 1. Intrahepatic biliary duct dilatation better seen on the CT examination. A lesion at the biliary duct confluence/common hepatic duct region still needs to be suspected. An ERCP or MRCP could be used to further evaluate this region. 2. Suspected area of focal hepatic steatosis at the anterior segment right lobe of the liver. 3. Gallstones Landry Zarate MD Objective Remarks GENERAL: Pale appearing male, on nasal cannula. In no acute distress SKIN: Cool to touch. Positive jaundice HEAD: Atraumatic. Normocephalic. EYES: Pupils equal and round about 3 mm bilaterally and reactive. Pallor+ positive scleral icterus ENT: No nasal bleeding or discharge. Mucous membranes moist and pink. Oropharynx without erythema NECK: Trachea midline. CARDIOVASCULAR: Tachycardic, RR. S1, S2. No S4. Without murmur RESPIRATORY: Diminished breath sounds throughout. No wheezing rales or rhonchi. GASTROINTESTINAL: Biliary and peritoneal drain in place. Peroneal drain with serosanguineous output-230 mL in 24 hours. Biliary drain 210 cc MUSCULOSKELETAL: Extremities without difficulty and peripheral edema. NEUROLOGICAL: Alert awake oriented 3. No focal deficits. Cranial nerves II through XII grossly intact. Strength is equal symmetric. Normal sensation. Urinary Catheter: Yes Assessment to: Continue Carmona insert reason: ICU Pt Getting Diuretics Vascular Central Line Catheter: Yes Assessment to: Continue Date of Insertion: Dec 03, 2017 Line: Central Venous Catheter Location: Internal, Jugular A/P Assessment and Plan NEURO/PSYCH: Insomnia Currently on hydrocodone/acetaminophen 5-10/325 one tablet every 4 hours when necessary pain 1-10 Melatonin 5 mg at night as needed. He received temazepam 7.5 mg tablets 11 overnight yesterday RESP: Acute respiratory failure resolved History of tobacco use Extubated 12/05/17, tolerating well respiratory grullon. Nasal cannula to maintain saturations greater than equal to 92% Incentive spirometry while awake Albuterol/ipratropium aerosols every 6 hours scheduled and when necessary albuterol aerosols every 2 hours dyspnea Aggressive pulmonary toilet EzPAP and Acapella scheduled every 6 hours incentive spirometry every hour while awake CV: Hemorrhagic shock-resolved Sinus tachycardia/SIRS \ We will discontinue furosemide. Started on acetazolamide first dose tonight to 250 mg 1 due to contraction alkalosis Due to massive transfusions Is >>> O's throughout this hospitalization Stress dose steroids as per below Status post multiple blood and blood product transfusion as below Written for as needed metoprolol Valarie greater than 120 GI: Gastroesophageal reflux disease Intrahepatic biliary obstruction status post biliary stent and drain 12/03/16 ( Dr. Hurtado) Jabari cholangitis Stage liver laceration Liver laceration with hemoperitoneum Full liquid diet s/p OR ex lap with Dr. Montero, 12/04 and control of bleeding from liver capsular laceration with Surgicel and packing GI following for biliary obstruction ? 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 Patient is on omeprazole 20 mg daily at home Docusate sepsis and 1 tablet twice a day for bowel regimen. Having bowel movements FEN/RENAL: BPH Hypernatremia Hypopotassemia Continue finasteride 5 mg daily Carmona to be maintained while on diuretics. Monitor intake and output. Receiving potassium chloride per ICU electrolyte protocol. Recheck at 1800 Gave calcium chloride 1 g IV ID: Severe sepsis Jabari cholangitis Staph epi UTI s/p biliary stent, jabari albicans in biliary culture 12/04 Urine cultures positive for pansensitive staph epi 12/01 Blood cultures 12/03 no growth. On piperacillin/tazobactam, and fluconazole 400 daily ID consulted and discussed with Dr. Gill Pertinent cultures jabari albicans in biliary culture 12/04 Urine cultures positive for pansensitive staph epi 12/01 Blood cultures 12/03 no growth. HEME: Acute blood loss anemia Thrombocytopenia Leukocytosis Transfused 7 units packed red cells, 3 units FFP, 1 unit cryo on 12/03 - 12/04 Serial CBC. Replace as clinically indicated follow trends ENDO: Hypothyroidism Chronic prednisone 5 mg daily for rheumatoid arthritis Continue Synthroid 112 g - 100 micrograms daily. TSH 0.2. Normal free T4. Hydrocortisone weaning currently 25 mg every 8 hours PROPH: SCDs for DVT prophylaxis. Holding enoxaparin due to acute hemorrhage. Pantoprazole 40 mg IV q12 until able to r/o GI source of bleeding. ACCESS: Right IJ central venous line placed 12/03/17 #5. Left femoral art line placed 12/03/17 #3-12/07 Level II follow-up Gerard Hernandez MD Dec 07, 2017 15:26
--- NOTE | 2017-12-07 16:56 | HHI.PR ---
Subjective Subjective Notes no acute issues, hh slow trend down but pt appears stable, +bms, +flatus Objective Vitals/I&O Vital Signs Date Time Temp Pulse Resp B/P (MAP) Pulse Ox O2 Delivery O2 Flow Rate FiO2 12/07/17 16:00 98.1 102 20 113/62 (79) 99 12/07/17 11:24 Nasal Cannula 2.00 12/06/17 19:00 40 Labs Laboratory Tests Test 12/06/17 17:34 12/07/17 03:30 Blood Urea Nitrogen 21 22 Creatinine 1.15 1.07 Random Glucose 128 120 Total Protein 5.3 5.2 Albumin 2.6 2.8 Calcium Level 7.7 7.7 Alkaline Phosphatase 101 101 Aspartate Amino Transf (AST/SGOT) 72 58 Alanine Aminotransferase (ALT/SGPT) 70 62 Total Bilirubin 5.7 5.8 Sodium Level 146 147 Potassium Level 3.0 2.8 Chloride Level 102 103 Carbon Dioxide Level 37.8 39.5 Anion Gap 6 5 Estimat Glomerular Filtration Rate 61 66 White Blood Count 41.3 Red Blood Count 2.86 Hemoglobin 8.1 Hematocrit 25.0 Mean Corpuscular Volume 87.6 Mean Corpuscular Hemoglobin 28.2 Mean Corpuscular Hemoglobin Concent 32.2 Red Cell Distribution Width 16.1 Platelet Count 98 Mean Platelet Volume 10.1 Neutrophils (%) (Auto) 87.3 Lymphocytes (%) (Auto) 1.7 Monocytes (%) (Auto) 11.0 Eosinophils (%) (Auto) 0.0 Basophils (%) (Auto) 0.0 Neutrophils # (Auto) 36.0 Lymphocytes # (Auto) 0.7 Monocytes # (Auto) 4.6 Eosinophils # (Auto) 0.0 Basophils # (Auto) 0.0 CBC Comment AUTO DIFF Differential Total Cells Counted 100 Neutrophils % (Manual) 93 Lymphocytes % 3 Monocytes % 3 Neutrophils # (Manual) 38.8 Myelocytes 1 Differential Comment FINAL DIFF MANUAL Platelet Estimate LOW Platelet Morphology Comment NORMAL Ovalocytes 1+ Stomatocytes 1+ Magnesium Level 1.9 Ammonia 30 Lipase 232 Date/Time Source Procedure Growth Status 12/03/17 20:54 Blood Peripheral Aerobic Blood Culture - Preliminary NO GROWTH IN 4 DAYS Resulted 12/03/17 20:54 Blood Peripheral Anaerobic Blood Culture - Preliminary NO GROWTH IN 4 DAYS Resulted 12/04/17 00:42 Fluid Bile Fluid Gram Stain - Final Complete 12/04/17 00:42 Body Fluid Culture - Final Marielle Albicans Complete 12/01/17 06:30 Urine Clean Catch Urine Culture - Final Staphylococcus Epidermidis Complete Radiology Last Impressions Chest X-Ray 12/06/17 0000 Signed Impressions: Service Date/Time: Wednesday, December 06, 2017 07:38 - CONCLUSION: 1. Small left pleural effusion. 2. Cardiomegaly. 3. No acute focal pulmonary infiltrate or pulmonary vascular congestion. Allen Tony MD Abdomen X-Ray [id number] Signed Impressions: Service Date/Time: Sunday, December 03, 2017 18:15 - CONCLUSION: Nonspecific abdomen. Luz Jean MD Bile Duct Drainage 12/03/17 0000 Signed Impressions: Service Date/Time: Sunday, December 03, 2017 14:10 - CONCLUSION: Uncomplicated biliary stent placement as above. Bj Hurtado MD Abdomen/Pelvis CT 12/03/17 0000 Signed Impressions: Service Date/Time: December 02:42 - CONCLUSION: 1. Moderate volume hemoperitoneum. 2. Interval placement of a right internal/external biliary drainage catheter. This is in good position. Jung Lundberg Jr., MD Cholangiopancreatography MRI 12/02/17 0000 Signed Impressions: Service Date/Time: Saturday, December 02, 2017 08:17 - CONCLUSION: 1. Significant dilatation of the intrahepatic ducts ending at the confluence and possibility of stricture at this site or a Klatskin's tumor which is not visualized should be entertained. 2. Wedge-shaped focal fat right hepatic lobe. Luz Jean MD Abdomen Ultrasound 12/01/17 0000 Signed Impressions: Service Date/Time: Friday, December 01, 2017 11:49 - CONCLUSION: 1. Intrahepatic biliary duct dilatation better seen on the CT examination. A lesion at the biliary duct confluence/common hepatic duct region still needs to be suspected. An ERCP or MRCP could be used to further evaluate this region. 2. Suspected area of focal hepatic steatosis at the anterior segment right lobe of the liver. 3. Gallstones Landry Zarate MD Abdomen: Other (soft incision scant dry blood, nicky dark serous, biliary drain with bile) A/P Assessment and Plan POD3 exp lap for liver lacertion supportive care trend hh keep donis due to lasix and diuresis pain control continue full diet encourage oob nicky sxn mgnt per isc Hector Garvey MD Dec 07, 2017 16:56
[2017-12-07] MEDS: FLUCONAZOLE 400 MG PREMIX BAG 200 ML IV SCH (17:22)
[2017-12-08] VITALS (14 sets, daily range): BP systolic 131–164; BP diastolic 65–83; PULSE 96–124; RESP 11–24; TEMP 98–99.2; O2SAT 98
[2017-12-08] MEDS: PANTOPRAZOLE SODIUM 40 MG VIAL IV PUSH SCH ×2 (03:26→13:23)
[2017-12-08] MEDS: PIPERACIL-TAZO 3.375 GM PREMIX 50 ML IV SCH ×4 (03:26→20:47)
[2017-12-08] MEDS: RESP: ALBUTEROL 2.5 MG/IPRATROPIUM 0.5 MG NEB (SCH) NEB ×4 (04:39→20:50)
[2017-12-08] MEDS: HYDROCORTISONE SOD SUCCINATE 100 MG VIAL IV PUSH SCH ×2 (05:54→20:47)
[2017-12-08] MEDS: LEVOTHYROXINE SODIUM 100 MCG TAB PO SCH (05:54)
[2017-12-08 06:27] LABS: ALKALINE PHOSPHATASE 99 U/L (45-117); ALT (GPT) 54 U/L (12-78); AST (GOT) 45 U/L (15-37); BICARBONATE 33.4 MEQ/L (21.0-32.0); BLOOD UREA NITROGEN 24 MG/DL (7-18); CALCIUM 8.6 MG/DL (8.5-10.1); CHLORIDE 108 MEQ/L (98-107); CREATININE 1.13 MG/DL (0.60-1.30); GLOMERULAR FILTRATION RATE 62 ML/MIN (>89); GLUCOSE,RANDOM 149 MG/DL (74-106); MAGNESIUM 2.3 MG/DL (1.5-2.5); PHOSPHORUS 1.7 MG/DL (2.5-4.9); SODIUM (NA) 148 MEQ/L (136-145); TOTAL BILIRUBIN ADULT 5.7 MG/DL (0.2-1.0); TOTAL PROTEIN 5.6 GM/DL (6.4-8.2)
[2017-12-08 07:52] LABS: AUTOMATED NEUTROPHIL # 30.1 TH/MM3 (1.8-7.7); BASOPHIL # 0.1 TH/MM3 (0-0.2); BASOPHIL % 0.2 % (0.0-2.0); HEMATOCRIT 25.6 % (39.0-51.0); HEMOGLOBIN 8.1 GM/DL (13.0-17.0); LYMPH % 2.3 % (9.0-44.0); LYMPHOCYTE # 0.8 TH/MM3 (1.0-4.8); MEAN CELL VOLUME 90.5 FL (80.0-100.0); MEAN CORPUSCULAR HEMOGLOBIN 28.6 PG (27.0-34.0); MEAN CORPUSCULAR HGB CONC 31.7 % (32.0-36.0); MEAN PLATELET VOLUME 10.1 FL (7.0-11.0); MONO % 9.8 % (0.0-8.0); MONOCYTE # 3.4 TH/MM3 (0-0.9); NEUT % 87.7 % (16.0-70.0); PLATELET COUNT 123 TH/MM3 (150-450); RED BLOOD COUNT 2.83 MIL/MM3 (4.50-5.90); WHITE BLOOD COUNT 34.3 TH/MM3 (4.0-11.0)
[2017-12-08] MEDS: CHLORHEXIDINE 0.12% (ORAL KIT) 15 ML CUP MT SCH ×2 (08:00→20:00)
[2017-12-08] MEDS ORDERED: ACETAMINOPHEN 500 MG CPLT PO PRN (08:30)
--- NOTE | 2017-12-08 08:35 | HHI.PR ---
Subjective Subjective Notes feels fine, wants to get oob. had a small BM, no N/V Objective Vitals/I&O Vital Signs Date Time Temp Pulse Resp B/P (MAP) Pulse Ox O2 Delivery O2 Flow Rate FiO2 12/08/17 06:00 104 12/08/17 04:00 98.4 17 135/67 (89) 98 12/07/17 22:03 Nasal Cannula 2.00 12/07/17 19:00 40 Labs Laboratory Tests Test 12/07/17 17:55 12/08/17 05:35 Potassium Level 2.7 3.4 White Blood Count 34.3 Red Blood Count 2.83 Hemoglobin 8.1 Hematocrit 25.6 Mean Corpuscular Volume 90.5 Mean Corpuscular Hemoglobin 28.6 Mean Corpuscular Hemoglobin Concent 31.7 Red Cell Distribution Width 17.0 Platelet Count 123 Mean Platelet Volume 10.1 Neutrophils (%) (Auto) 87.7 Lymphocytes (%) (Auto) 2.3 Monocytes (%) (Auto) 9.8 Eosinophils (%) (Auto) 0.0 Basophils (%) (Auto) 0.2 Neutrophils # (Auto) 30.1 Lymphocytes # (Auto) 0.8 Monocytes # (Auto) 3.4 Eosinophils # (Auto) 0.0 Basophils # (Auto) 0.1 CBC Comment AUTO DIFF Differential Comment Hematology Comments Blood Urea Nitrogen 24 Creatinine 1.13 Random Glucose 149 Total Protein 5.6 Albumin 3.0 Calcium Level 8.6 Phosphorus Level 1.7 Magnesium Level 2.3 Alkaline Phosphatase 99 Aspartate Amino Transf (AST/SGOT) 45 Alanine Aminotransferase (ALT/SGPT) 54 Total Bilirubin 5.7 Sodium Level 148 Chloride Level 108 Carbon Dioxide Level 33.4 Anion Gap 7 Estimat Glomerular Filtration Rate 62 Date/Time Source Procedure Growth Status 12/03/17 20:54 Blood Peripheral Aerobic Blood Culture - Preliminary NO GROWTH IN 4 DAYS Resulted 12/03/17 20:54 Blood Peripheral Anaerobic Blood Culture - Preliminary NO GROWTH IN 4 DAYS Resulted 12/04/17 00:42 Fluid Bile Fluid Gram Stain - Final Complete 12/04/17 00:42 Body Fluid Culture - Final Marielle Albicans Complete 12/01/17 06:30 Urine Clean Catch Urine Culture - Final Staphylococcus Epidermidis Complete Radiology Last Impressions Chest X-Ray 12/06/17 0000 Signed Impressions: Service Date/Time: Wednesday, December 06, 2017 07:38 - CONCLUSION: 1. Small left pleural effusion. 2. Cardiomegaly. 3. No acute focal pulmonary infiltrate or pulmonary vascular congestion. Allen Tony MD Abdomen X-Ray 12/03/17 1808 Signed Impressions: Service Date/Time: Sunday, December 03, 2017 18:15 - CONCLUSION: Nonspecific abdomen. Luz Jean MD Bile Duct Drainage 12/03/17 0000 Signed Impressions: Service Date/Time: Sunday, December 03, 2017 14:10 - CONCLUSION: Uncomplicated biliary stent placement as above. Bj Hurtado MD Abdomen/Pelvis CT 12/03/17 0000 Signed Impressions: Service Date/Time: December 02:42 - CONCLUSION: 1. Moderate volume hemoperitoneum. 2. Interval placement of a right internal/external biliary drainage catheter. This is in good position. Jung Lundberg Jr., MD Cholangiopancreatography MRI 12/02/17 0000 Signed Impressions: Service Date/Time: Saturday, December 02, 2017 08:17 - CONCLUSION: 1. Significant dilatation of the intrahepatic ducts ending at the confluence and possibility of stricture at this site or a Klatskin's tumor which is not visualized should be entertained. 2. Wedge-shaped focal fat right hepatic lobe. Luz Jean MD Abdomen Ultrasound 12/01/17 0000 Signed Impressions: Service Date/Time: Friday, December 01, 2017 11:49 - CONCLUSION: 1. Intrahepatic biliary duct dilatation better seen on the CT examination. A lesion at the biliary duct confluence/common hepatic duct region still needs to be suspected. An ERCP or MRCP could be used to further evaluate this region. 2. Suspected area of focal hepatic steatosis at the anterior segment right lobe of the liver. 3. 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
[2017-12-08] MEDS: SODIUM CHLORIDE 0.9% FLUSH 10 ML FLUSH IV FLUSH SCH ×2 (08:47→21:00)
[2017-12-08] MEDS: FINASTERIDE 5 MG TAB PO SCH (08:47)
[2017-12-08] MEDS: DOCUSATE SODIUM 50 MG/SENNA 8.6 MG TAB PO SCH ×2 (08:47→20:46)
[2017-12-08 09:18] LABS: MONOCYTES 10 % (0-8); MYELOCYTES 1 % (0-0); NEUTROPHIL # MANUAL DIFF 30.9 TH/MM3 (1.8-7.7); POLYS (SEG NEUTROPHILS) 89 % (16-70)
--- NOTE | 2017-12-08 09:36 | HHI.FPPN ---
Subjective Remarks Mr. Rios is doing well today with no new complaints. There was concern after seeing a critically low H/H this morning, but lab error and subsequent repeat of the test yielded 8.1/25.6, which is more consistent with his hospital course. Patient had his Art line removed. Patient is still has a urine cath and his drainage is still in place (surgery is to remove drain today). Patient slept well last night and still has not requested any pain medication despite tachycardia. Hopefully Patient will be able to get out of bed today and will continue to taper his steroid dosage. Objective Vitals Vital Signs Date Time Temp Pulse Resp B/P (MAP) Pulse Ox O2 Delivery O2 Flow Rate FiO2 12/08/17 08:35 98 Nasal Cannula 2.00 12/08/17 06:00 104 12/08/17 04:00 96 12/08/17 04:00 98.4 96 17 135/67 (89) 98 12/08/17 02:00 97 12/08/17 00:00 99 12/08/17 00:00 98.6 99 11 131/65 (87) 98 12/07/17 22:03 98 Nasal Cannula 2.00 12/07/17 22:00 112 12/07/17 20:00 98.6 106 20 116/59 (78) 98 12/07/17 20:00 106 12/07/17 19:00 95 Nasal Cannula 2.00 40 12/07/17 18:00 114 12/07/17 16:00 98.1 102 20 113/62 (79) 99 12/07/17 16:00 102 12/07/17 14:00 124 12/07/17 12:00 110 12/07/17 12:00 98.1 110 19 100/68 (79) 97 12/07/17 11:24 98 Nasal Cannula 2.00 12/07/17 10:00 85 I/O 12/07/17 12/07/17 12/07/17 12/08/17 12/08/17 12/08/17 07:00 15:00 23:00 07:00 15:00 23:00 Intake Total 200 ml 250 ml 300 ml 50 ml Output Total 1830 ml 1360 ml 1110 ml Balance -1630 ml 250 ml -1060 ml -1060 ml IV Total 200 ml 250 ml 300 ml 50 ml Output Urine Total 1700 ml 1200 ml 1000 ml Drainage Total 130 ml 160 ml 110 ml # Bowel Movements 1 1 0 Result Diagram: 12/08/17 0535 12/08/17 0535 Other Results Laboratory Tests Test 12/08/17 05:35 White Blood Count 34.3 TH/MM3 (4.0-11.0) Red Blood Count 2.83 MIL/MM3 (4.50-5.90) Hemoglobin 8.1 GM/DL (13.0-17.0) Hematocrit 25.6 % (39.0-51.0) Mean Corpuscular Volume 90.5 FL (80.0-100.0) Mean Corpuscular Hemoglobin 28.6 PG (27.0-34.0) Mean Corpuscular Hemoglobin Concent 31.7 % (32.0-36.0) Red Cell Distribution Width 17.0 % (11.6-17.2) Platelet Count 123 TH/MM3 (150-450) Mean Platelet Volume 10.1 FL (7.0-11.0) Neutrophils (%) (Auto) 87.7 % (16.0-70.0) Lymphocytes (%) (Auto) 2.3 % (9.0-44.0) Monocytes (%) (Auto) 9.8 % (0.0-8.0) Eosinophils (%) (Auto) 0.0 % (0.0-4.0) Basophils (%) (Auto) 0.2 % (0.0-2.0) Neutrophils # (Auto) 30.1 TH/MM3 (1.8-7.7) Lymphocytes # (Auto) 0.8 TH/MM3 (1.0-4.8) Monocytes # (Auto) 3.4 TH/MM3 (0-0.9) Eosinophils # (Auto) 0.0 TH/MM3 (0-0.4) Basophils # (Auto) 0.1 TH/MM3 (0-0.2) CBC Comment AUTO DIFF Differential Total Cells Counted 100 Neutrophils % (Manual) 89 % (16-70) Monocytes % 10 % (0-8) Neutrophils # (Manual) 30.9 TH/MM3 (1.8-7.7) Myelocytes 1 % (0-0) Differential Comment FINAL DIFF MANUAL Platelet Estimate LOW (NORMAL) Platelet Morphology Comment ENLARGED (NORMAL) Hematology Comments Blood Urea Nitrogen 24 MG/DL (7-18) Creatinine 1.13 MG/DL (0.60-1.30) Random Glucose 149 MG/DL (74-106) Total Protein 5.6 GM/DL (6.4-8.2) Albumin 3.0 GM/DL (3.4-5.0) Calcium Level 8.6 MG/DL (8.5-10.1) Phosphorus Level 1.7 MG/DL (2.5-4.9) Magnesium Level 2.3 MG/DL (1.5-2.5) Alkaline Phosphatase 99 U/L (45-117) Aspartate Amino Transf (AST/SGOT) 45 U/L (15-37) Alanine Aminotransferase (ALT/SGPT) 54 U/L (12-78) Total Bilirubin 5.7 MG/DL (0.2-1.0) Sodium Level 148 MEQ/L (136-145) Potassium Level 3.4 MEQ/L (3.5-5.1) Chloride Level 108 MEQ/L (98-107) Carbon Dioxide Level 33.4 MEQ/L (21.0-32.0) Anion Gap 7 MEQ/L (5-15) Estimat Glomerular Filtration Rate 62 ML/MIN (>89) Imaging Last Impressions Chest X-Ray 12/07/17 0600 Signed Impressions: Service Date/Time: Thursday, December 07, 2017 04:09 - CONCLUSION: No significant change. Persistent left pleural effusion and left lower lobe atelectasis versus consolidation. Jerry Laureano MD Abdomen X-Ray 12/03/17 1808 Signed Impressions: Service Date/Time: Sunday, December 03, 2017 18:15 - CONCLUSION: Nonspecific abdomen. K. Gurvinder Jean MD Bile Duct Drainage 12/03/17 0000 Signed Impressions: Service Date/Time: Sunday, December 03, 2017 14:10 - CONCLUSION: Uncomplicated biliary stent placement as above. Bj Hurtado MD Abdomen/Pelvis CT 12/03/17 0000 Signed Impressions: Service Date/Time: December 02:42 - CONCLUSION: 1. Moderate volume hemoperitoneum. 2. Interval placement of a right internal/external biliary drainage catheter. This is in good position. Jung Lundberg Jr., MD Cholangiopancreatography MRI 12/02/17 0000 Signed Impressions: Service Date/Time: Saturday, December 02, 2017 08:17 - CONCLUSION: 1. Significant dilatation of the intrahepatic ducts ending at the confluence and possibility of stricture at this site or a Klatskin's tumor which is not visualized should be entertained. 2. Wedge-shaped focal fat right hepatic lobe. Luz Jean MD Abdomen Ultrasound 12/01/17 0000 Signed Impressions: Service Date/Time: Friday, December 01, 2017 11:49 - CONCLUSION: 1. Intrahepatic biliary duct dilatation better seen on the CT examination. A lesion at the biliary duct confluence/common hepatic duct region still needs to be suspected. An ERCP or MRCP could be used to further evaluate this region. 2. Suspected area of focal hepatic steatosis at the anterior segment right lobe of the liver. 3. Gallstones Landry Zarate MD Objective Remarks Physical Exam GEN: Awake and responsive in bed. Responds appropriately to questions. NAD. CV: RRR no rubs, gallops, or murmurs appreciated. equal, strong pulses bilaterally. Resp: CTA bilaterally, no wheezes, rhonchi, or rales noted. Abdomen: soft, mildly tender, moderately distended. + fluid wave. no rebound. Drain in place and functional. Skin: mild jaundice that has decreased in intensity and extension, barely noticeable at this point. Extremities: less edema hands and little to none of lower extremities Procedures 12/04/17 - Exploratory laparotomy, liver laceration repair 12/03/17 - Biliary drainage Medications and IVs Current Medications Medications (Trade) Dose Ordered Sig/Rafa Route PRN Reason Start Time Stop Time Status Last Admin Dose Admin Sodium Chloride (NS Flush) 2 ml UNSCH PRN IV FLUSH FLUSH AFTER USING IV ACCESS 12/01/17 11:00 Sodium Chloride (NS Flush) 2 ml BID IV FLUSH 12/01/17 21:00 12/08/17 08:47 Ondansetron HCl (Zofran Inj) 4 mg Q6H PRN IVP NAUSEA OR VOMITING 12/01/17 11:00 12/03/17 20:00 Acetaminophen/ Hydrocodone Bitart ([place] 5-325 Mg) 1 tab Q4H PRN PO PAIN SCALE 3 TO 5 12/01/17 11:00 Acetaminophen/ Hydrocodone Bitart ([place] 10-325 Mg) 1 tab Q4H PRN PO PAIN SCALE 6 TO 10 12/01/17 11:00 Naloxone HCl (Narcan Inj) 0.4 mg UNSCH PRN IV PUSH SEE LABEL COMMENTS 12/01/17 11:00 Senna/Docusate Sodium ([place]-Colace) 1 tab BID PO 12/01/17 21:00 12/08/17 08:47 Magnesium Hydroxide (Milk Of Magnesia Liq) 30 ml Q12H PRN PO Mild constipation 12/01/17 11:00 12/02/17 16:20 Sennosides (Senokot) 17.2 mg Q12H PRN PO Moderate constipation 12/01/17 11:00 Bisacodyl (Dulcolax Supp) 10 mg DAILY PRN RECTAL SEVERE CONSITIPATION 12/01/17 11:00 Lactulose (Lactulose Liq) 30 ml DAILY PRN PO SEVERE CONSITIPATION 12/01/17 11:00 Finasteride (Proscar) 5 mg DAILY PO 12/02/17 09:00 Future hold 12/08/17 08:47 Prednisone (Deltasone) 5 mg DAILY PO 12/02/17 09:00 Future Hold Piperacillin Sod/ Tazobactam Sod 50 ml @ 100 mls/hr Q6H IV 12/01/17 16:00 12/08/17 03:26 Chlorhexidine Gluconate (Peridex 0.12% Liq) 15 ml BID@08,20 MT 12/04/17 08:00 12/07/17 21:17 Pantoprazole Sodium (Protonix Inj) 40 mg Q12H IV PUSH 12/04/17 02:00 12/08/17 03:26 Potassium Chloride 100 ml @ 50 mls/hr Q2H PRN IV For Potassium 2.8 - 3.2 mEq/L 12/05/17 07:15 12/07/17 21:18 Potassium Chloride 100 ml @ 50 mls/hr Q2H PRN IV For Potassium 2.8 - 3.2 mEq/L 12/05/17 07:15 Potassium Bicarb/ Potassium Chloride (K-Lyte Cl Eff) 50 meq UNSCH PRN PO For Potassium 3.3 - 3.5 mEq/L 12/05/17 07:15 Potassium Chloride 100 ml @ 25 mls/hr UNSCH PRN IV For Potassium 3.3 - 3.5 mEq/L 12/05/17 07:15 Potassium Chloride 100 ml @ 50 mls/hr Q2H PRN IV For Potassium 3.3 - 3.5 mEq/L 12/05/17 07:15 Magnesium Sulfate 4 gm/Sodium Chloride 100 ml @ 50 mls/hr UNSCH PRN IV For Magnesium 0.9 - 1.1 mg/dL 12/05/17 07:15 Magnesium Oxide (Mag-Ox) 800 mg UNSCH PRN PO For Magnesium 1.2 - 1.6 mg/dL 12/05/17 07:15 Magnesium Sulfate 2 gm/Sodium Chloride 100 ml @ 50 mls/hr UNSCH PRN IV For Magnesium 1.2 - 1.6 mg/dL 12/05/17 07:15 Potassium Phosphate (K-Phos) 2,000 mg Q4H PRN PO For Phosphorus < 2.5 mg/dL 12/05/17 07:15 Sodium Phosphate 30 mmol/Sodium Chloride 250 ml @ 42 mls/hr UNSCH PRN IV For Phosphorus < 2.5 mg/dL 12/05/17 07:15 Potassium Phosphate (K-Phos) 2,000 mg UNSCH PRN PO/TUBE SEE LABEL COMMENTS 12/05/17 07:15 Potassium Phosphate 30 mmol/ Sodium Chloride 260 ml @ 42 mls/hr UNSCH PRN IV SEE LABEL COMMENTS 12/05/17 07:15 Fluconazole/ Sodium Chloride 200 ml @ 100 mls/hr Q24H IV 12/06/17 17:00 12/07/17 17:22 Albuterol/ Ipratropium (Duoneb Neb) 1 ampule Q6HR NEB NEB 12/05/17 22:00 12/08/17 08:34 Albuterol Sulfate (Albuterol Neb) 2.5 mg Q2HR NEB PRN NEB dyspnea 12/05/17 22:00 Metoprolol Tartrate (Lopressor Inj) 2.5 mg Q6H PRN IV PUSH HR>120 12/06/17 13:00 Hydrocortisone Sodium Succinate (SoluCORTEF INJ) 25 mg Q8HR IV PUSH 12/07/17 14:00 12/08/17 05:54 Levothyroxine Sodium (Synthroid) 100 mcg DAILY@0600 PO 12/08/17 06:00 12/08/17 05:54 Melatonin (Melatonin) 5 mg HS PRN PO insomnia 12/07/17 21:00 Acetaminophen (Tylenol) 500 mg Q6H PRN PO pain 12/08/17 08:30 Urinary Catheter: Yes Date of Insertion: Dec 03, 2017 Line: Central Venous Catheter Location: Internal, Jugular A/P Assessment and Plan 82 yo male with h/o PMR, BPH, hyperlipidemia presenting with: Problem List: (1) Liver hemorrhage ICD Codes: K76.89 - Other specified diseases of liver Status: Acute Plan: from procedure for dilated duct in liver, s/p surgery on the to repair the liver and stop bleeding. stable now. surgery team will evaluate for additional surgery post drainage removal. Drain will be removed today per surgery. encourage OOB activity. PO tylenol for pain. appreciate help from Dr Montero and Intensivists (2) Abdominal pain ICD Codes: R10.9 - Unspecified abdominal pain Status: Acute Plan: Sudden onset abdominal pain worst in RUQ - has since progressed to tenderness to deep palpation with minimal pain. CT findings as above MRCP findings as above Significant leukocytosis on admission initially improved with Zosyn, now increased post-operatively above 50k, CCM explained that this presentation manifests as a result of hemorrhagic shock and stress his body underwent. WBC trending downward. UA with hematuria, many WBC on admission UCx growing staph epidermidis Item Value Date Time Tumor Marker Alpha Fetoprotein 1.9 NG/ML 12/02/17 0724 Carcinoembryonic Antigen 1.0 NG/ML 12/02/17 0724 CA 19-9 Antigen 85.0 U/ML H 12/02/17 0724 Differential including malignancy, choledocholithiasis, cholecystitis, kidney stone, UTI - Currently in ICU - care coordinated with GI, surgery, ICU, and FM Med team Tabatha MATOS has signed off. - Zosyn 3.375 Q6H IV for to cover UTI, abdominal pathogens initially, will continue for duration of surgical drainage and consider d/c at that time. - Fluconazole added by [facility] for Marielle albicans in body fluid culture. - Diet can be advanced per surgery when he is ready - f/u outpatient pending GI diagnostic impression/imaging - still needs to determine the presence of tumor vs not. (3) Polymyalgia rheumatica ICD Codes: M35.3 - Polymyalgia rheumatica Status: Chronic Plan: Pain stable, was on 5 mg of prednisone which is enough to suppress his adrenals. he is on some stress dose steroids to help him with his current problems but he can likely be weaned back down to 5 mg once this crisis is over Steroids were decreased by half as a means to control fluids and avoid 3rd spacing of fluid. his hydrocortisone was cut again and should be weaned as he is past the stress of surgery (4) BPH (benign prostatic hyperplasia) ICD Codes: N40.0 - Benign prostatic hyperplasia without lower urinary tract symptoms Status: Chronic Plan: Symptoms currently well controlled, continue home finasteride as he could have urinary retention when catheter D/Cal (5) Hypothyroidism ICD Codes: E03.9 - Hypothyroidism, unspecified Status: Chronic Plan: Continue home Synthroid (6) Leukocytosis ICD Codes: D72.829 - Elevated white blood cell count, unspecified Status: Acute Plan: very high WBCs discussed with Acid Supervisor and WBCs in the 50s can occur with intraabdominal processes and infections. He has been found to have a candidal infection. Have been weaning him down on his steroids which could also be pushing up his WBC. WBC trending downward today. - Coverage with Zosyn as above, now on vanc as well as fluconazole appreciate help ID ([id number]) FEN/PPX Plan: Fluids: per surgery and Acid Supervisor Electrolytes: Monitor and replace PRN, should be on ICU protocol. will give some po K as he is being diuresed and can take pills now Nutrition: Diet regular basic once able to start eating again DVT: Lovenox 40 mg SQ daily initially, unsure when he can resume as he had a serious life threatening bleed. watching his platelets Dispo: admitted. will be here for days as he is continuing to recover Problem Qualifiers (1) Abdominal pain: Qualified Codes: R10.11 - Right upper quadrant pain (2) BPH (benign prostatic hyperplasia): Qualified Codes: N40.0 - Benign prostatic hyperplasia without lower urinary tract symptoms (3) Hypothyroidism: Qualified Codes: E03.9 - Hypothyroidism, unspecified (4) Leukocytosis: Qualified Codes: D72.829 - Elevated white blood cell count, unspecified La Wood MD Dec 08, 2017 09:36
--- NOTE | 2017-12-08 12:18 | HHI.IDPN ---
Subjective Subjective Allergies: Coded Allergies: No Known Allergies (Unverified Allergy, Unknown, 12/01/17) Objective . Vital Signs Date Time Temp Pulse Resp B/P (MAP) Pulse Ox O2 Delivery O2 Flow Rate FiO2 12/08/17 08:35 98 Nasal Cannula 2.00 12/08/17 06:00 104 12/08/17 04:00 96 12/08/17 04:00 98.4 96 17 135/67 (89) 98 12/08/17 02:00 97 12/08/17 00:00 99 12/08/17 00:00 98.6 99 11 131/65 (87) 98 12/07/17 22:03 98 Nasal Cannula 2.00 12/07/17 22:00 112 12/07/17 20:00 98.6 106 20 116/59 (78) 98 12/07/17 20:00 106 12/07/17 19:00 95 Nasal Cannula 2.00 40 12/07/17 18:00 114 12/07/17 16:00 98.1 102 20 113/62 (79) 99 12/07/17 16:00 102 12/07/17 14:00 124 . Laboratory Tests Test 12/06/17 15:10 12/07/17 03:30 12/08/17 05:35 White Blood Count 47.6 TH/MM3 41.3 TH/MM3 34.3 TH/MM3 Red Blood Count 3.09 MIL/MM3 2.86 MIL/MM3 2.83 MIL/MM3 Hemoglobin 8.7 GM/DL 8.1 GM/DL 8.1 GM/DL Hematocrit 27.1 % 25.0 % 25.6 % Mean Corpuscular Volume 87.9 FL 87.6 FL 90.5 FL Mean Corpuscular Hemoglobin 28.3 PG 28.2 PG 28.6 PG Mean Corpuscular Hemoglobin Concent 32.2 % 32.2 % 31.7 % Red Cell Distribution Width 16.3 % 16.1 % 17.0 % Platelet Count 82 TH/MM3 98 TH/MM3 123 TH/MM3 Mean Platelet Volume 10.5 FL 10.1 FL 10.1 FL CBC Comment AUTO DIFF AUTO DIFF AUTO DIFF Differential Total Cells Counted 100 100 100 Neutrophils % (Manual) 93 % 93 % 89 % Band Neutrophils % 2 % Lymphocytes % 1 % 3 % Monocytes % 2 % 3 % 10 % Neutrophils # (Manual) 46.2 TH/MM3 38.8 TH/MM3 30.9 TH/MM3 Metamyelocytes 2 % Nucleated Red Blood Cells 1 /100 WBC Differential Comment FINAL DIFF MANUAL FINAL DIFF MANUAL FINAL DIFF MANUAL Hematology Comments Neutrophils (%) (Auto) 87.3 % 87.7 % Lymphocytes (%) (Auto) 1.7 % 2.3 % Monocytes (%) (Auto) 11.0 % 9.8 % Eosinophils (%) (Auto) 0.0 % 0.0 % Basophils (%) (Auto) 0.0 % 0.2 % Neutrophils # (Auto) 36.0 TH/MM3 30.1 TH/MM3 Lymphocytes # (Auto) 0.7 TH/MM3 0.8 TH/MM3 Monocytes # (Auto) 4.6 TH/MM3 3.4 TH/MM3 Eosinophils # (Auto) 0.0 TH/MM3 0.0 TH/MM3 Basophils # (Auto) 0.0 TH/MM3 0.1 TH/MM3 Myelocytes 1 % 1 % Platelet Estimate LOW LOW Platelet Morphology Comment NORMAL ENLARGED Ovalocytes 1+ Stomatocytes 1+ Laboratory Tests Test 12/06/17 17:34 12/07/17 03:30 12/07/17 17:55 12/08/17 05:35 Blood Urea Nitrogen 21 MG/DL 22 MG/DL 24 MG/DL Creatinine 1.15 MG/DL 1.07 MG/DL 1.13 MG/DL Random Glucose 128 MG/DL 120 MG/DL 149 MG/DL Total Protein 5.3 GM/DL 5.2 GM/DL 5.6 GM/DL Albumin 2.6 GM/DL 2.8 GM/DL 3.0 GM/DL Calcium Level 7.7 MG/DL 7.7 MG/DL 8.6 MG/DL Alkaline Phosphatase 101 U/L 101 U/L 99 U/L Aspartate Amino Transf (AST/SGOT) 72 U/L 58 U/L 45 U/L Alanine Aminotransferase (ALT/SGPT) 70 U/L 62 U/L 54 U/L Total Bilirubin 5.7 MG/DL 5.8 MG/DL 5.7 MG/DL Sodium Level 146 MEQ/L 147 MEQ/L 148 MEQ/L Potassium Level 3.0 MEQ/L 2.8 MEQ/L 2.7 MEQ/L 3.4 MEQ/L Chloride Level 102 MEQ/L 103 MEQ/L 108 MEQ/L Carbon Dioxide Level 37.8 MEQ/L 39.5 MEQ/L 33.4 MEQ/L Anion Gap 6 MEQ/L 5 MEQ/L 7 MEQ/L Estimat Glomerular Filtration Rate 61 ML/MIN 66 ML/MIN 62 ML/MIN Magnesium Level 1.9 MG/DL 2.3 MG/DL Ammonia 30 MCMOL/L Lipase 232 U/L Phosphorus Level 1.7 MG/DL Brigette Gill MD Dec 08, 2017 12:18
[2017-12-08] MEDS ORDERED: POTASSIUM BICARBONATE 25 MEQ EFFERVESCENT TAB PO ONE (13:00)
[2017-12-08] MEDS ORDERED: POTASSIUM PHOSPHATE INJ 30 MMOL in SODIUM CHLOR 0.9% 250 ML INJ 250 ML IV ONE (14:00)
--- NOTE | 2017-12-08 14:01 | HHI.CCPN ---
Subjective Remarks/Hospital Course 82-year-old male with past history of BPH, hyperlipidemia, PMR who is admitted to [facility] 12/01/17 with right upper quadrant abdominal pain and jaundice. LFTs were elevated in an obstructive pattern. CT demonstrated intrahepatic biliary duct dilatation. A mass was not clearly seen. 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 He underwent percutaneous biliary stent placement and drain by interventional radiology 12/03/17 (Dr. Hurtado). He was hypotensive post procedure and this was initially managed by family sociologist with 1.5 L fluid resuscitation and stress dose steroids, abx for possible biliary sepsis. Hypotension persisted and he was transferred to ICU with critical care medicine consult. When I went to evaluate the patient he appeared pale with cool skin concerning for hemorrhagic shock. CBC demonstrated leukocytosis 27.5 and hemoglobin was 9.4 from a baseline of 13. Place central line and art line, started neosynephrine, began transfusing blood products until appropriately stabilized for transition to CT scanner. CT scan demonstrated moderate hemoperitoneum with hemorrhage adjacent to the liver. The biliary drain was in good position. Called Dr. Montero who will take patient to OR for emergent laparotomy. agreeable to risks of surgery. Upon transition to OR he had received PRBC 7 units, 2 units FFP and 1 gram calcium chloride with 1 more unit of FFP, 1 unit platelets, 1 unit cryo ready to transfuse. 12/04/17: Status post exploratory laparotomy and control of liver laceration bleeding by Dr. montero, findinL hemoperitoneum, Capsular tear Segment of the liver. Remains on Chas-Synephrine at 50 mcg/m. Repeat lab work showed platelet count of 50 hemoglobin of 11.9. Platelet transfusion ordered. at the bedside 12/05/17: Tolerating CPAP, follows commands but tachycardic. White count increased to 52,000 biliary fluid with Jabari. I have increase Diflucan to 40 mg daily and consulted ID. Urine output minimal, no response to fluid bolus. Weight up by 10 kg, will attempt diuresis 12/06/17: Extubated yesterday. Breathing comfortably. Tachycardic up to 160s, white count remains high at 50,000, tachycardia most likely from SIRS response/ sepsis. Responded to beta thania. Urine output adequate with Lasix. 16 KG fluid up. Start scheduled Lasix 40 mg IV every 8 hours with IV albumin. Keep nothing by mouth until cleared by general surgery 12/07: Afebrile. Heart rate in the 120s. Off all vasopressors. Tolerating full liquid diet. Positive BM 1. Pain control. Subjective 12/08: Afebrile. Pulse less than 100. Tolerating full liquid diet. Positive BM. Pain is controlled. Objective Vital Signs Date Time Temp Pulse Resp B/P (MAP) Pulse Ox O2 Delivery O2 Flow Rate FiO2 12/08/17 08:35 98 Nasal Cannula 2.00 12/08/17 06:00 104 12/08/17 04:00 98.4 17 135/67 (89) 12/07/17 19:00 40 Intake and Output 12/08/17 12/08/17 12/09/17 08:00 16:00 00:00 Intake Total 50 ml Output Total 1110 ml Balance -1060 ml Result Diagram: 12/08/17 0535 12/08/17 0535 Imaging Last Impressions Chest X-Ray 12/07/17 0600 Signed Impressions: Service Date/Time: Thursday, December 07, 2017 04:09 - CONCLUSION: No significant change. Persistent left pleural effusion and left lower lobe atelectasis versus consolidation. Jerry Laureano MD Abdomen X-Ray 12/03/17 1808 Signed Impressions: Service Date/Time: Sunday, December 03, 2017 18:15 - CONCLUSION: Nonspecific abdomen. K. Gurvinder Jean MD Bile Duct Drainage 12/03/17 0000 Signed Impressions: Service Date/Time: Sunday, December 03, 2017 14:10 - CONCLUSION: Uncomplicated biliary stent placement as above. Bj Hurtado MD Abdomen/Pelvis CT 12/03/17 0000 Signed Impressions: Service Date/Time: December 02:42 - CONCLUSION: 1. Moderate volume hemoperitoneum. 2. Interval placement of a right internal/external biliary drainage catheter. This is in good position. Jung Lundberg Jr., MD Cholangiopancreatography MRI 12/02/17 0000 Signed Impressions: Service Date/Time: Saturday, December 02, 2017 08:17 - CONCLUSION: 1. Significant dilatation of the intrahepatic ducts ending at the confluence and possibility of stricture at this site or a Klatskin's tumor which is not visualized should be entertained. 2. Wedge-shaped focal fat right hepatic lobe. KLivier Jean MD Abdomen Ultrasound 12/01/17 0000 Signed Impressions: Service Date/Time: Friday, December 01, 2017 11:49 - CONCLUSION: 1. Intrahepatic biliary duct dilatation better seen on the CT examination. A lesion at the biliary duct confluence/common hepatic duct region still needs to be suspected. An ERCP or MRCP could be used to further evaluate this region. 2. Suspected area of focal hepatic steatosis at the anterior segment right lobe of the liver. 3. Gallstones Landry Zarate MD Objective Remarks GENERAL: Pale appearing male, on nasal cannula. In no acute distress SKIN: Cool to touch. Positive jaundice HEAD: Atraumatic. Normocephalic. EYES: Pupils equal and round about 3 mm bilaterally and reactive. Pallor+ positive scleral icterus ENT: No nasal bleeding or discharge. Mucous membranes moist and pink. Oropharynx without erythema NECK: Trachea midline. CARDIOVASCULAR: Tachycardic, RR. S1, S2. No S4. Without murmur RESPIRATORY: Diminished breath sounds throughout. No wheezing rales or rhonchi. GASTROINTESTINAL: Biliary and peritoneal drain in place. Peroneal drain with serosanguineous output-210 mL in 24 hours. Biliary drain 60 cc MUSCULOSKELETAL: Extremities without difficulty and peripheral edema. NEUROLOGICAL: Alert awake oriented 3. No focal deficits. Cranial nerves II through XII grossly intact. Strength is equal symmetric. Normal sensation. Date of Insertion: Dec 03, 2017 Line: Central Venous Catheter Location: Internal, Jugular A/P Assessment and Plan NEURO/PSYCH: Insomnia Currently on hydrocodone/acetaminophen 5-10/325 one tablet every 4 hours when necessary pain 1-10 Melatonin 5 mg at night as needed. He received temazepam 7.5 mg tablets 11 overnight 12/06 RESP: Acute respiratory failure resolved History of tobacco use Extubated 12/05/17, tolerating well respiratory grullon. Nasal cannula to maintain saturations greater than equal to 92% currently 2 L Incentive spirometry while awake Albuterol/ipratropium aerosols every 6 hours scheduled and when necessary albuterol aerosols every 2 hours dyspnea Aggressive pulmonary toilet EzPAP and Acapella scheduled every 6 hours incentive spirometry every hour while awake CV: Hemorrhagic shock-resolved Sinus tachycardia/SIRS \ We will discontinue furosemide. Started on acetazolamide first dose/7 250 mg 1 due to contraction alkalosis Due to massive transfusions Is >>> O's throughout this hospitalization Stress dose steroids as per below Status post multiple blood and blood product transfusion as below Written for as needed metoprolol Valarie greater than 120 GI: Gastroesophageal reflux disease Intrahepatic biliary obstruction status post biliary stent and drain 12/03/16 ( Dr. Hurtado) Jabari cholangitis Stage liver laceration Liver laceration with hemoperitoneum Full liquid diet s/p OR ex lap with Dr. Montero, 12/04 and control of bleeding from liver capsular laceration with Surgicel and packing GI following for biliary obstruction ? 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 Patient is on omeprazole 20 mg daily at home Docusate sodium/senna 1 tablet twice a day for bowel regimen. Having bowel movements FEN/RENAL: BPH Hypophosphatemia Hypopotassemia Continue finasteride 5 mg daily Carmona to be maintained while on diuretics. Monitor intake and output. Receiving potassium chloride per ICU electrolyte protocol. 30 mmol K-Phos IV 1 now. ID: Severe sepsis Jabari cholangitis Staph epi UTI s/p biliary stent, jabari albicans in biliary culture 12/04 Urine cultures positive for pansensitive staph epi 12/01 Blood cultures 12/03 no growth. On piperacillin/tazobactam, and fluconazole 400 daily ID consulted and discussed with Dr. Gill Pertinent cultures jabari albicans in biliary culture 12/04 Urine cultures positive for pansensitive staph epi 12/01 Blood cultures 12/03 no growth. HEME: Acute blood loss anemia Thrombocytopenia Leukocytosis Transfused 7 units packed red cells, 3 units FFP, 1 unit cryo on 12/03 - 12/04 Serial CBC. Replace as clinically indicated follow trends ENDO: Hypothyroidism Chronic prednisone 5 mg daily for rheumatoid arthritis Continue Synthroid 112 g - 100 micrograms daily. TSH 0.2. Normal free T4. Hydrocortisone weaning currently 25 mg every 12 hours. Stop date 12/10 PROPH: SCDs for DVT prophylaxis. Holding enoxaparin due to acute hemorrhage. Pantoprazole 40 mg IV q12 until able to r/o GI source of bleeding. ACCESS: Right IJ central venous line placed 12/03/17 #6. Left femoral art line placed 12/03/17 --1/7 Level II follow-up Gerard Hernandez MD Dec 08, 2017 14:01
--- NOTE | 2017-12-08 14:09 | HHI.IDPN ---
Subjective Subjective Remarks doing better Still high WBC but dropped to 30 K afebrile takes full liquid PO co some abd tenderness, but not having abdominal pain Normal creatinine and normal urine output Antibiotics zosyn fluconazol Past Medical History Allergies: Coded Allergies: No Known Allergies (Unverified Allergy, Unknown, 12/01/17) Objective . Vital Signs Date Time Temp Pulse Resp B/P (MAP) Pulse Ox O2 Delivery O2 Flow Rate FiO2 12/08/17 08:35 98 Nasal Cannula 2.00 12/08/17 07:00 97 Nasal Cannula 2.00 40 12/08/17 06:00 104 12/08/17 04:00 96 12/08/17 04:00 98.4 96 17 135/67 (89) 98 12/08/17 02:00 97 12/08/17 00:00 99 12/08/17 00:00 98.6 99 11 131/65 (87) 98 12/07/17 22:03 98 Nasal Cannula 2.00 12/07/17 22:00 112 12/07/17 20:00 98.6 106 20 116/59 (78) 98 12/07/17 20:00 106 12/07/17 19:00 95 Nasal Cannula 2.00 40 12/07/17 18:00 114 12/07/17 16:00 98.1 102 20 113/62 (79) 99 12/07/17 16:00 102 . Laboratory Tests Test 12/06/17 15:10 12/07/17 03:30 12/08/17 05:35 White Blood Count 47.6 TH/MM3 41.3 TH/MM3 34.3 TH/MM3 Red Blood Count 3.09 MIL/MM3 2.86 MIL/MM3 2.83 MIL/MM3 Hemoglobin 8.7 GM/DL 8.1 GM/DL 8.1 GM/DL Hematocrit 27.1 % 25.0 % 25.6 % Mean Corpuscular Volume 87.9 FL 87.6 FL 90.5 FL Mean Corpuscular Hemoglobin 28.3 PG 28.2 PG 28.6 PG Mean Corpuscular Hemoglobin Concent 32.2 % 32.2 % 31.7 % Red Cell Distribution Width 16.3 % 16.1 % 17.0 % Platelet Count 82 TH/MM3 98 TH/MM3 123 TH/MM3 Mean Platelet Volume 10.5 FL 10.1 FL 10.1 FL CBC Comment AUTO DIFF AUTO DIFF AUTO DIFF Differential Total Cells Counted 100 100 100 Neutrophils % (Manual) 93 % 93 % 89 % Band Neutrophils % 2 % Lymphocytes % 1 % 3 % Monocytes % 2 % 3 % 10 % Neutrophils # (Manual) 46.2 TH/MM3 38.8 TH/MM3 30.9 TH/MM3 Metamyelocytes 2 % Nucleated Red Blood Cells 1 /100 WBC Differential Comment FINAL DIFF MANUAL FINAL DIFF MANUAL FINAL DIFF MANUAL Hematology Comments Neutrophils (%) (Auto) 87.3 % 87.7 % Lymphocytes (%) (Auto) 1.7 % 2.3 % Monocytes (%) (Auto) 11.0 % 9.8 % Eosinophils (%) (Auto) 0.0 % 0.0 % Basophils (%) (Auto) 0.0 % 0.2 % Neutrophils # (Auto) 36.0 TH/MM3 30.1 TH/MM3 Lymphocytes # (Auto) 0.7 TH/MM3 0.8 TH/MM3 Monocytes # (Auto) 4.6 TH/MM3 3.4 TH/MM3 Eosinophils # (Auto) 0.0 TH/MM3 0.0 TH/MM3 Basophils # (Auto) 0.0 TH/MM3 0.1 TH/MM3 Myelocytes 1 % 1 % Platelet Estimate LOW LOW Platelet Morphology Comment NORMAL ENLARGED Ovalocytes 1+ Stomatocytes 1+ Laboratory Tests Test 12/06/17 17:34 12/07/17 03:30 12/07/17 17:55 12/08/17 05:35 Blood Urea Nitrogen 21 MG/DL 22 MG/DL 24 MG/DL Creatinine 1.15 MG/DL 1.07 MG/DL 1.13 MG/DL Random Glucose 128 MG/DL 120 MG/DL 149 MG/DL Total Protein 5.3 GM/DL 5.2 GM/DL 5.6 GM/DL Albumin 2.6 GM/DL 2.8 GM/DL 3.0 GM/DL Calcium Level 7.7 MG/DL 7.7 MG/DL 8.6 MG/DL Alkaline Phosphatase 101 U/L 101 U/L 99 U/L Aspartate Amino Transf (AST/SGOT) 72 U/L 58 U/L 45 U/L Alanine Aminotransferase (ALT/SGPT) 70 U/L 62 U/L 54 U/L Total Bilirubin 5.7 MG/DL 5.8 MG/DL 5.7 MG/DL Sodium Level 146 MEQ/L 147 MEQ/L 148 MEQ/L Potassium Level 3.0 MEQ/L 2.8 MEQ/L 2.7 MEQ/L 3.4 MEQ/L Chloride Level 102 MEQ/L 103 MEQ/L 108 MEQ/L Carbon Dioxide Level 37.8 MEQ/L 39.5 MEQ/L 33.4 MEQ/L Anion Gap 6 MEQ/L 5 MEQ/L 7 MEQ/L Estimat Glomerular Filtration Rate 61 ML/MIN 66 ML/MIN 62 ML/MIN Magnesium Level 1.9 MG/DL 2.3 MG/DL Ammonia 30 MCMOL/L Lipase 232 U/L Phosphorus Level 1.7 MG/DL Imaging Last Impressions Chest X-Ray 12/07/17 0600 Signed Impressions: Service Date/Time: Thursday, December 07, 2017 04:09 - CONCLUSION: No significant change. Persistent left pleural effusion and left lower lobe atelectasis versus consolidation. Jerry Laureano MD Abdomen X-Ray 12/03/17 1808 Signed Impressions: Service Date/Time: Sunday, December 03, 2017 18:15 - CONCLUSION: Nonspecific abdomen. Luz Jean MD Bile Duct Drainage 12/03/17 0000 Signed Impressions: Service Date/Time: Sunday, December 03, 2017 14:10 - CONCLUSION: Uncomplicated biliary stent placement as above. Bj Hurtado MD Abdomen/Pelvis CT 12/03/17 0000 Signed Impressions: Service Date/Time: December 02:42 - CONCLUSION: 1. Moderate volume hemoperitoneum. 2. Interval placement of a right internal/external biliary drainage catheter. This is in good position. Jung Lundberg Jr., MD Cholangiopancreatography MRI 12/02/17 0000 Signed Impressions: Service Date/Time: Saturday, December 02, 2017 08:17 - CONCLUSION: 1. Significant dilatation of the intrahepatic ducts ending at the confluence and possibility of stricture at this site or a Klatskin's tumor which is not visualized should be entertained. 2. Wedge-shaped focal fat right hepatic lobe. Luz Jean MD Abdomen Ultrasound 12/01/17 0000 Signed Impressions: Service Date/Time: Friday, December 01, 2017 11:49 - CONCLUSION: 1. Intrahepatic biliary duct dilatation better seen on the CT examination. A lesion at the biliary duct confluence/common hepatic duct region still needs to be suspected. An ERCP or MRCP could be used to further evaluate this region. 2. Suspected area of focal hepatic steatosis at the anterior segment right lobe of the liver. 3. Gallstones Landry Zarate MD Physical Exam CONSTITUTIONAL/GENERAL: This is an adequately nourished patient, in no apparent distress. TUBES/LINES/DRAINS: SKIN: + mild jaundice, rashes, or lesions. Skin temperature appropriate. Not diaphoretic. CARDIOVASCULAR: Regular rate and rhythm without murmurs, gallops, or rubs. No JVD. Peripheral pulses symmetric. RESPIRATORY/CHEST: Symmetric, unlabored respirations. Clear to auscultation. Breath sounds equal bilaterally. No wheezes, rales, or rhonchi. GASTROINTESTINAL: Abdomen much softer some tenderss to palpation and is less distended. Biliary drain in place with brown bile Drain in place in abdomen with hemorragic drainage No hepato-splenomegaly, or palpable masses. No guarding. Bowel sounds present. GENITOURINARY: Without palpable bladder distension. Carmona catheter in place with scarce amout of dark cloudy urine MUSCULOSKELETAL: Extremities without clubbing, cyanosis, Less edema. No joint tenderness or effusion noted. No calf tenderness. No mottling or clubbing. LYMPHATICS: No palpable cervical or supraclavicular adenopathy. NEUROLOGICAL: Lethargic, difficult to arouse . Not following PSYCHIATRIC: unable to assess Assessment & Plan Remarks Acute hypovolemic shock following bleeding 2/2 complicaion of biliary stent placement sp emergent surgery Obstructive jaundiced, ethiology not yet established sp biliary stent placement candidal cholangitis Sepsis Leukocytosis, leukemoid reaction - improving Acute VDRF - resolved ARF- resolved Pt significant ly improved clinically Staph epi bacteriuria - doubt clin significance - not a trypical urinary pathogen cont zosyn cont fluconazole to 400 anticipate transition to oral Augmentin, fluconazol pending further WBC improvement Brigette Gill MD Dec 08, 2017 14:09
[2017-12-08] MEDS: FLUCONAZOLE 400 MG PREMIX BAG 200 ML IV SCH (18:05)
[2017-12-08] MEDS: METOPROLOL TARTRATE 5 MG/5 ML VIAL IV PUSH PRN (21:46)
[2017-12-08] MEDS: MELATONIN 5 MG TAB PO PRN (23:44)
[2017-12-09] VITALS (14 sets, daily range): BP systolic 137–170; BP diastolic 71–86; PULSE 105–130; RESP 22–31; TEMP 98.7–99.3; O2SAT 94–100
[2017-12-09] MEDS: ONDANSETRON HCL 4 MG/2 ML VIAL IVP PRN (00:50)
[2017-12-09] MEDS: PANTOPRAZOLE SODIUM 40 MG VIAL IV PUSH SCH ×2 (01:43→12:32)
[2017-12-09] MEDS: RESP: ALBUTEROL 2.5 MG/IPRATROPIUM 0.5 MG NEB (SCH) NEB ×4 (03:38→20:54)
[2017-12-09] MEDS: PIPERACIL-TAZO 3.375 GM PREMIX 50 ML IV SCH ×4 (03:41→20:33)
[2017-12-09] MEDS: METOPROLOL TARTRATE 5 MG/5 ML VIAL IV PUSH PRN (05:19)
[2017-12-09] MEDS: MAGNESIUM HYDROXIDE SUSP 30 ML CUP PO PRN (05:20)
[2017-12-09 05:46] LABS: AUTOMATED NEUTROPHIL # 35.7 TH/MM3 (1.8-7.7); HEMATOCRIT 26.7 % (39.0-51.0); HEMOGLOBIN 8.7 GM/DL (13.0-17.0); LYMPH % 2.3 % (9.0-44.0); LYMPHOCYTE # 0.9 TH/MM3 (1.0-4.8); MEAN CELL VOLUME 90.2 FL (80.0-100.0); MEAN CORPUSCULAR HEMOGLOBIN 29.3 PG (27.0-34.0); MEAN CORPUSCULAR HGB CONC 32.5 % (32.0-36.0); MEAN PLATELET VOLUME 10.2 FL (7.0-11.0); NEUT % 85.7 % (16.0-70.0); PLATELET COUNT 144 TH/MM3 (150-450); RED BLOOD COUNT 2.96 MIL/MM3 (4.50-5.90); RED CELL DISTRIBUTION WIDTH 16.7 % (11.6-17.2); WHITE BLOOD COUNT 41.6 TH/MM3 (4.0-11.0)
[2017-12-09] MEDS: LEVOTHYROXINE SODIUM 100 MCG TAB PO SCH (06:00)
[2017-12-09 06:03] LABS: ALKALINE PHOSPHATASE 116 U/L (45-117); ALT (GPT) 51 U/L (12-78); PHOSPHORUS 2.3 MG/DL (2.5-4.9); TOTAL BILIRUBIN ADULT 5.3 MG/DL (0.2-1.0); TOTAL PROTEIN 5.3 GM/DL (6.4-8.2)
[2017-12-09 06:05] LABS: ALBUMIN 2.5 GM/DL (3.4-5.0); AST (GOT) 45 U/L (15-37); CALCIUM 8.8 MG/DL (8.5-10.1); CHLORIDE 108 MEQ/L (98-107); CREATININE 0.88 MG/DL (0.60-1.30); GLOMERULAR FILTRATION RATE 83 ML/MIN (>89); GLUCOSE,RANDOM 112 MG/DL (74-106); MAGNESIUM 2.3 MG/DL (1.5-2.5); SODIUM (NA) 148 MEQ/L (136-145)
[2017-12-09 06:08] LABS: BLOOD UREA NITROGEN 20 MG/DL (7-18)
[2017-12-09 07:35] LABS: BANDS 2 % (0-6); LYMPHOCYTES 1 % (9-44); MONOCYTES 6 % (0-8); MYELOCYTES 1 % (0-0); NEUTROPHIL # MANUAL DIFF 38.7 TH/MM3 (1.8-7.7); POLYS (SEG NEUTROPHILS) 90 % (16-70)
[2017-12-09] MEDS: CHLORHEXIDINE 0.12% (ORAL KIT) 15 ML CUP MT SCH ×2 (07:54→20:00)
[2017-12-09] MEDS: SODIUM CHLORIDE 0.9% FLUSH 10 ML FLUSH IV FLUSH SCH ×2 (08:48→20:33)
[2017-12-09] MEDS: POTASSIUM PHOSPHATE MONOBASIC 500 MG TAB PO PRN ×2 (08:49→12:32)
[2017-12-09] MEDS: FINASTERIDE 5 MG TAB PO SCH (08:49)
[2017-12-09] MEDS: HYDROCORTISONE SOD SUCCINATE 100 MG VIAL IV PUSH SCH ×2 (08:49→20:32)
[2017-12-09] MEDS: predniSONE 5 MG TAB PO SCH (08:50)
[2017-12-09] MEDS: POTASSIUM CHLOR 40 MEQ PREMIX 100 ML IV PRN ×2 (08:50→12:52)
[2017-12-09] MEDS: DOCUSATE SODIUM 50 MG/SENNA 8.6 MG TAB PO SCH ×3 (08:50→21:00)
--- NOTE | 2017-12-09 11:50 | HHI.PR ---
Subjective Subjective Notes Up to chair Really likes his RN today who is Gypsy Objective Vitals/I&O Vital Signs Date Time Temp Pulse Resp B/P (MAP) Pulse Ox O2 Delivery O2 Flow Rate FiO2 12/09/17 10:00 126 12/09/17 08:43 98 Nasal Cannula 2.00 12/09/17 08:00 99.3 30 160/74 (102) 12/08/17 07:00 40 Labs Laboratory Tests Test 12/09/17 03:50 White Blood Count 41.6 Red Blood Count 2.96 Hemoglobin 8.7 Hematocrit 26.7 Mean Corpuscular Volume 90.2 Mean Corpuscular Hemoglobin 29.3 Mean Corpuscular Hemoglobin Concent 32.5 Red Cell Distribution Width 16.7 Platelet Count 144 Mean Platelet Volume 10.2 Neutrophils (%) (Auto) 85.7 Lymphocytes (%) (Auto) 2.3 Monocytes (%) (Auto) 12.0 Eosinophils (%) (Auto) 0.0 Basophils (%) (Auto) 0.0 Neutrophils # (Auto) 35.7 Lymphocytes # (Auto) 0.9 Monocytes # (Auto) 5.0 Eosinophils # (Auto) 0.0 Basophils # (Auto) 0.0 CBC Comment AUTO DIFF Differential Total Cells Counted 100 Neutrophils % (Manual) 90 Band Neutrophils % 2 Lymphocytes % 1 Monocytes % 6 Neutrophils # (Manual) 38.7 Myelocytes 1 Differential Comment FINAL DIFF MANUAL Platelet Estimate LOW Platelet Morphology Comment ENLARGED Basophilic Stippling FAINT Blood Urea Nitrogen 20 Creatinine 0.88 Random Glucose 112 Total Protein 5.3 Albumin 2.5 Calcium Level 8.8 Phosphorus Level 2.3 Magnesium Level 2.3 Alkaline Phosphatase 116 Aspartate Amino Transf (AST/SGOT) 45 Alanine Aminotransferase (ALT/SGPT) 51 Total Bilirubin 5.3 Sodium Level 148 Potassium Level 3.0 Chloride Level 108 Carbon Dioxide Level 34.0 Anion Gap 6 Estimat Glomerular Filtration Rate 83 Date/Time Source Procedure Growth Status 12/03/17 20:54 Blood Peripheral Aerobic Blood Culture - Final NO GROWTH IN 5 DAYS Complete 12/03/17 20:54 Blood Peripheral Anaerobic Blood Culture - Final NO GROWTH IN 5 DAYS Complete 12/04/17 00:42 Fluid Bile Fluid Gram Stain - Final Complete 12/04/17 00:42 Body Fluid Culture - Final Marielle Albicans Complete 12/01/17 06:30 Urine Clean Catch Urine Culture - Final Staphylococcus Epidermidis Complete Radiology Last Impressions Chest X-Ray 12/06/17 0000 Signed Impressions: Service Date/Time: Wednesday, December 06, 2017 07:38 - CONCLUSION: 1. Small left pleural effusion. 2. Cardiomegaly. 3. No acute focal pulmonary infiltrate or pulmonary vascular congestion. Allen Tony MD Abdomen X-Ray [id number] Signed Impressions: Service Date/Time: Sunday, December 03, 2017 18:15 - CONCLUSION: Nonspecific abdomen. Luz Jean MD Bile Duct Drainage 12/03/17 0000 Signed Impressions: Service Date/Time: Sunday, December 03, 2017 14:10 - CONCLUSION: Uncomplicated biliary stent placement as above. Bj Hurtado MD Abdomen/Pelvis CT 12/03/17 0000 Signed Impressions: Service Date/Time: December 02:42 - CONCLUSION: 1. Moderate volume hemoperitoneum. 2. Interval placement of a right internal/external biliary drainage catheter. This is in good position. Jung Lundberg Jr., MD Cholangiopancreatography MRI 12/02/17 0000 Signed Impressions: Service Date/Time: Saturday, December 02, 2017 08:17 - CONCLUSION: 1. Significant dilatation of the intrahepatic ducts ending at the confluence and possibility of stricture at this site or a Klatskin's tumor which is not visualized should be entertained. 2. Wedge-shaped focal fat right hepatic lobe. Luz Jean MD Abdomen Ultrasound 12/01/17 0000 Signed Impressions: Service Date/Time: Friday, December 01, 2017 11:49 - CONCLUSION: 1. Intrahepatic biliary duct dilatation better seen on the CT examination. A lesion at the biliary duct confluence/common hepatic duct region still needs to be suspected. An ERCP or MRCP could be used to further evaluate this region. 2. Suspected area of focal hepatic steatosis at the anterior segment right lobe of the liver. 3. Gallstones Landry Zarate MD Cardiovascular: Regular Lungs: Clear Abdomen: Other (incision--- dressing removed-- adrienne c/d/i; ANI with bloodly drainage; biliary drain in place ) Extremities: No edema A/P Assessment and Plan 82 year old male POD5 ex lap for liver laceration -Advance to soft diet -Continue ANI care and management -WBC increased again today; afebrile -Hmg/Hct/Plt stable -PT/OOB -IS -Will need further workup for Klatskin tumor/cholangiocarcinoma with GI -Discussed with RN Gypsy and patient's at the bedside -Would keep in ICU for now due to elevated HR SEEN ON ROUNDS WITH [employer]ER WHO DOCUMENTED OUR VISIT. AGREE WITH KEEPING IN ISC. LIKELY DC DRAIN SOON. H/H STABLE CYNTHIA ONEAL MD FACS Sandie Marquis Dec 09, 2017 11:50 Cynthia Oneal MD Dec 10, 2017 09:42
--- NOTE | 2017-12-09 13:07 | HHI.CCPN ---
Subjective Remarks/Hospital Course 82-year-old male with past history of BPH, hyperlipidemia, PMR who is admitted to [facility] 12/01/17 with right upper quadrant abdominal pain and jaundice. LFTs were elevated in an obstructive pattern. CT demonstrated intrahepatic biliary duct dilatation. A mass was not clearly seen. 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 He underwent percutaneous biliary stent placement and drain by interventional radiology 12/03/17 (Dr. Hurtado). He was hypotensive post procedure and this was initially managed by family court justice with 1.5 L fluid resuscitation and stress dose steroids, abx for possible biliary sepsis. Hypotension persisted and he was transferred to ICU with critical care medicine consult. When I went to evaluate the patient he appeared pale with cool skin concerning for hemorrhagic shock. CBC demonstrated leukocytosis 27.5 and hemoglobin was 9.4 from a baseline of 13. Place central line and art line, started neosynephrine, began transfusing blood products until appropriately stabilized for transition to CT scanner. CT scan demonstrated moderate hemoperitoneum with hemorrhage adjacent to the liver. The biliary drain was in good position. Called Dr. Montero who will take patient to OR for emergent laparotomy. agreeable to risks of surgery. Upon transition to OR he had received PRBC 7 units, 2 units FFP and 1 gram calcium chloride with 1 more unit of FFP, 1 unit platelets, 1 unit cryo ready to transfuse. 12/04/17: Status post exploratory laparotomy and control of liver laceration bleeding by Dr. montero, findinL hemoperitoneum, Capsular tear Segment of the liver. Remains on Chas-Synephrine at 50 mcg/m. Repeat lab work showed platelet count of 50 hemoglobin of 11.9. Platelet transfusion ordered. at the bedside 12/05/17: Tolerating CPAP, follows commands but tachycardic. White count increased to 52,000 biliary fluid with Jabari. I have increase Diflucan to 40 mg daily and consulted ID. Urine output minimal, no response to fluid bolus. Weight up by 10 kg, will attempt diuresis 12/06/17: Extubated yesterday. Breathing comfortably. Tachycardic up to 160s, white count remains high at 50,000, tachycardia most likely from SIRS response/ sepsis. Responded to beta thania. Urine output adequate with Lasix. 16 KG fluid up. Start scheduled Lasix 40 mg IV every 8 hours with IV albumin. Keep nothing by mouth until cleared by general surgery 12/07: Afebrile. Heart rate in the 120s. Off all vasopressors. Tolerating full liquid diet. Positive BM 1. Pain control. 12/08: Afebrile. Pulse less than 100. Tolerating full liquid diet. Positive BM. Pain is controlled. Subjective 12/09: Currently Tmax 99.3. Elevated WBC again today. Tachycardic with movement. Pleasantly confused but redirectable. CT brain pending. Objective Vital Signs Date Time Temp Pulse Resp B/P (MAP) Pulse Ox O2 Delivery O2 Flow Rate FiO2 12/09/17 12:00 116 12/09/17 12:00 98.9 26 142/84 (103) 98 12/09/17 08:43 Nasal Cannula 2.00 12/08/17 07:00 40 Intake and Output 12/09/17 12/09/17 12/10/17 08:00 16:00 00:00 Intake Total 250 ml Output Total 1620 ml Balance -1370 ml Result Diagram: 12/09/17 0350 12/09/17 0350 Imaging Last Impressions Chest X-Ray 12/07/17 0600 Signed Impressions: Service Date/Time: Thursday, December 07, 2017 04:09 - CONCLUSION: No significant change. Persistent left pleural effusion and left lower lobe atelectasis versus consolidation. Jerry Laureano MD Abdomen X-Ray 12/03/17 1808 Signed Impressions: Service Date/Time: Sunday, December 03, 2017 18:15 - CONCLUSION: Nonspecific abdomen. K. Gurvinder Jean MD Bile Duct Drainage 12/03/17 0000 Signed Impressions: Service Date/Time: Sunday, December 03, 2017 14:10 - CONCLUSION: Uncomplicated biliary stent placement as above. Bj Hurtado MD Abdomen/Pelvis CT 12/03/17 0000 Signed Impressions: Service Date/Time: December 02:42 - CONCLUSION: 1. Moderate volume hemoperitoneum. 2. Interval placement of a right internal/external biliary drainage catheter. This is in good position. Jung Lundberg Jr., MD Cholangiopancreatography MRI 12/02/17 0000 Signed Impressions: Service Date/Time: Saturday, December 02, 2017 08:17 - CONCLUSION: 1. Significant dilatation of the intrahepatic ducts ending at the confluence and possibility of stricture at this site or a Klatskin's tumor which is not visualized should be entertained. 2. Wedge-shaped focal fat right hepatic lobe. Luz Jean MD Abdomen Ultrasound 12/01/17 0000 Signed Impressions: Service Date/Time: Friday, December 01, 2017 11:49 - CONCLUSION: 1. Intrahepatic biliary duct dilatation better seen on the CT examination. A lesion at the biliary duct confluence/common hepatic duct region still needs to be suspected. An ERCP or MRCP could be used to further evaluate this region. 2. Suspected area of focal hepatic steatosis at the anterior segment right lobe of the liver. 3. Gallstones Landry Zarate MD Objective Remarks GENERAL: Pale appearing male, on nasal cannula. In no acute distress SKIN: Cool to touch. Positive jaundice HEAD: Atraumatic. Normocephalic. EYES: Pupils equal and round about 3 mm bilaterally and reactive. Pallor+ positive scleral icterus ENT: No nasal bleeding or discharge. Mucous membranes moist and pink. Oropharynx without erythema NECK: Trachea midline. CARDIOVASCULAR: Tachycardic, RR. S1, S2. No S4. Without murmur RESPIRATORY: Diminished breath sounds throughout. No wheezing rales or rhonchi. GASTROINTESTINAL: Biliary and peritoneal drain in place. Peroneal drain with serosanguineous output-125 mL in 24 hours. Biliary drain 700 cc MUSCULOSKELETAL: Extremities without difficulty and peripheral edema. NEUROLOGICAL: Alert awake oriented 3. No focal deficits. Cranial nerves II through XII grossly intact. Strength is equal symmetric. Normal sensation. Vascular Central Line Catheter: Yes Assessment to: Continue Date of Insertion: Dec 03, 2017 Line: Central Venous Catheter Location: Internal, Jugular A/P Assessment and Plan NEURO/PSYCH: Insomnia Currently on hydrocodone/acetaminophen 5-10/325 one tablet every 4 hours when necessary pain 1-10 Melatonin 5 mg at night as needed. He received temazepam 7.5 mg tablets 11 overnight 12/06 CT brain today RESP: Acute respiratory failure resolved History of tobacco use Extubated 12/05/17, tolerating well respiratory grullon. Nasal cannula to maintain saturations greater than equal to 92% currently 2 L Incentive spirometry while awake Albuterol/ipratropium aerosols every 6 hours scheduled and when necessary albuterol aerosols every 2 hours dyspnea Aggressive pulmonary toilet EzPAP and Acapella scheduled every 6 hours incentive spirometry every hour while awake CV: Hemorrhagic shock-resolved Sinus tachycardia/SIRS We will discontinue furosemide. Started on acetazolamide first dose/250 mg 1 due to contraction alkalosis Due to massive transfusions Is >>> O's throughout this hospitalization Stress dose steroids as per below Status post multiple blood and blood product transfusion as below Written for as needed metoprolol. 2.5 mg every 6 hours as needed for heart rate greater than 120. Schedule 25 mg every 8 hours GI: Gastroesophageal reflux disease Intrahepatic biliary obstruction status post biliary stent and drain 12/03/16 ( Dr. Hurtado) Jabari cholangitis Stage liver laceration Liver laceration with hemoperitoneum Full liquid diet s/p OR ex lap with Dr. Montreo, 12/04 and control of bleeding from liver capsular laceration with Surgicel and packing GI following for biliary obstruction ? 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 Patient is on omeprazole 20 mg daily at home Docusate sodium/senna 1 tablet twice a day for bowel regimen. Having bowel movements FEN/RENAL: BPH Hypophosphatemia Hypopotassemia Hypernatremia Continue finasteride 5 mg daily Carmona to be maintained while on diuretics. Monitor intake and output. Receiving potassium chloride per ICU electrolyte protocol. 30 mmol K-Phos IV 1 now. ID: Severe sepsis Jabari cholangitis Staph epi UTI s/p biliary stent, jabari albicans in biliary culture 12/04 Urine cultures positive for pansensitive staph epi 12/01 Blood cultures 12/03 no growth. On piperacillin/tazobactam, and fluconazole 400 daily ID consulted and discussed with Dr. Gill Pertinent cultures jabari albicans in biliary culture 12/04 Urine cultures positive for pansensitive staph epi 12/01 Blood cultures 12/03 no growth. Repeat blood cultures 2 today HEME: Normocytic anemia Thrombocytopenia Leukocytosis Transfused 7 units packed red cells, 3 units FFP, 1 unit cryo on 12/03 - 12/04 Serial CBC. Replace as clinically indicated follow trends ENDO: Hypothyroidism Chronic prednisone 5 mg daily for rheumatoid arthritis Continue Synthroid 112 g - 100 micrograms daily. TSH 0.2. Normal free T4. Hydrocortisone weaning currently 25 mg every 12 hours. Stop date 12/10 PROPH: SCDs for DVT prophylaxis. Holding enoxaparin due to acute hemorrhage. Pantoprazole 40 mg IV 24 ACCESS: Right IJ central venous line placed 12/03/17 #7. Removed today. Left femoral art line placed 12/03/17 --12/07 Level II follow-up Gerard Hernandez MD Dec 09, 2017 13:07
--- NOTE | 2017-12-09 14:02 | HHI.FPPN ---
Subjective Remarks Mr. Rios is an 82 yo M who was initially presented with RUQ abdominal pain and jaundice. Patient has undergone MRCP and subsequent biliary drainage, which resulted in a liver laceration that was repaired surgically. Patient has been managed in the ICU and is still currently under their care. - Today, Patient was awake and sitting in bedside chair. He states that he had a large BM that required his bed to be changed. Patient is stable, pleasant, slightly confused and anxious but able to redirect, had good I/O and talkative this morning when we rounded on him. He reports no discomfort unless deeply pressing on his abdomen, reports no pain throughout the night and is content with his pain medication regimen. His nurse reported tachycardia when he was moving about. (Eko,Lorin Rogers MD R2) Objective Vitals Vital Signs Date Time Temp Pulse Resp B/P (MAP) Pulse Ox O2 Delivery O2 Flow Rate FiO2 12/09/17 12:00 116 12/09/17 12:00 98.9 117 26 142/84 (103) 98 12/09/17 10:00 126 12/09/17 08:43 98 Nasal Cannula 2.00 12/09/17 08:00 94 Nasal Cannula 2.00 12/09/17 08:00 99.3 127 30 160/74 (102) 94 12/09/17 08:00 127 12/09/17 06:00 130 12/09/17 04:00 128 12/09/17 04:00 99.3 126 31 148/71 (96) 97 12/09/17 02:00 116 12/09/17 00:00 114 12/09/17 00:00 98.8 114 22 155/86 (109) 98 12/08/17 22:00 116 12/08/17 20:52 98 Nasal Cannula 2.00 12/08/17 20:00 116 12/08/17 20:00 99.2 116 24 161/77 (105) 98 12/08/17 19:00 98 Nasal Cannula 2.00 12/08/17 18:00 122 12/08/17 16:00 98.3 118 20 164/80 (108) 98 12/08/17 16:00 117 I/O 12/08/17 12/08/17 12/08/17 12/09/17 12/09/17 12/09/17 06:59 14:59 22:59 06:59 14:59 22:59 Intake Total 50 ml 1230 ml 250 ml Output Total 1110 ml 1180 ml 1620 ml Balance -1060 ml 50 ml -1370 ml Intake Oral 800 ml 250 ml IV Total 50 ml 430 ml Output Urine Total 1000 ml 750 ml 1225 ml Drainage Total 110 ml 430 ml 395 ml # Bowel Movements 0 0 0 (Lorin Pollock MD R2) Result Diagram: 12/09/17 0350 12/09/17 0350 Other Results Laboratory Tests Test 12/09/17 03:50 White Blood Count 41.6 TH/MM3 (4.0-11.0) Red Blood Count 2.96 MIL/MM3 (4.50-5.90) Hemoglobin 8.7 GM/DL (13.0-17.0) Hematocrit 26.7 % (39.0-51.0) Mean Corpuscular Volume 90.2 FL (80.0-100.0) Mean Corpuscular Hemoglobin 29.3 PG (27.0-34.0) Mean Corpuscular Hemoglobin Concent 32.5 % (32.0-36.0) Red Cell Distribution Width 16.7 % (11.6-17.2) Platelet Count 144 TH/MM3 (150-450) Mean Platelet Volume 10.2 FL (7.0-11.0) Neutrophils (%) (Auto) 85.7 % (16.0-70.0) Lymphocytes (%) (Auto) 2.3 % (9.0-44.0) Monocytes (%) (Auto) 12.0 % (0.0-8.0) Eosinophils (%) (Auto) 0.0 % (0.0-4.0) Basophils (%) (Auto) 0.0 % (0.0-2.0) Neutrophils # (Auto) 35.7 TH/MM3 (1.8-7.7) Lymphocytes # (Auto) 0.9 TH/MM3 (1.0-4.8) Monocytes # (Auto) 5.0 TH/MM3 (0-0.9) Eosinophils # (Auto) 0.0 TH/MM3 (0-0.4) Basophils # (Auto) 0.0 TH/MM3 (0-0.2) CBC Comment AUTO DIFF Differential Total Cells Counted 100 Neutrophils % (Manual) 90 % (16-70) Band Neutrophils % 2 % (0-6) Lymphocytes % 1 % (9-44) Monocytes % 6 % (0-8) Neutrophils # (Manual) 38.7 TH/MM3 (1.8-7.7) Myelocytes 1 % (0-0) Differential Comment FINAL DIFF MANUAL Platelet Estimate LOW (NORMAL) Platelet Morphology Comment ENLARGED (NORMAL) Basophilic Stippling FAINT (NORMAL) Blood Urea Nitrogen 20 MG/DL (7-18) Creatinine 0.88 MG/DL (0.60-1.30) Random Glucose 112 MG/DL (74-106) Total Protein 5.3 GM/DL (6.4-8.2) Albumin 2.5 GM/DL (3.4-5.0) Calcium Level 8.8 MG/DL (8.5-10.1) Phosphorus Level 2.3 MG/DL (2.5-4.9) Magnesium Level 2.3 MG/DL (1.5-2.5) Alkaline Phosphatase 116 U/L (45-117) Aspartate Amino Transf (AST/SGOT) 45 U/L (15-37) Alanine Aminotransferase (ALT/SGPT) 51 U/L (12-78) Total Bilirubin 5.3 MG/DL (0.2-1.0) Sodium Level 148 MEQ/L (136-145) Potassium Level 3.0 MEQ/L (3.5-5.1) Chloride Level 108 MEQ/L (98-107) Carbon Dioxide Level 34.0 MEQ/L (21.0-32.0) Anion Gap 6 MEQ/L (5-15) Estimat Glomerular Filtration Rate 83 ML/MIN (>89) Imaging Last Impressions Chest X-Ray 12/07/17 0600 Signed Impressions: Service Date/Time: Thursday, December 07, 2017 04:09 - CONCLUSION: No significant change. Persistent left pleural effusion and left lower lobe atelectasis versus consolidation. Jerry Laureano MD Abdomen X-Ray 12/03/17 1808 Signed Impressions: Service Date/Time: Sunday, December 03, 2017 18:15 - CONCLUSION: Nonspecific abdomen. Luz Jean MD Bile Duct Drainage 12/03/17 0000 Signed Impressions: Service Date/Time: Sunday, December 03, 2017 14:10 - CONCLUSION: Uncomplicated biliary stent placement as above. Bj Hurtado MD Abdomen/Pelvis CT 12/03/17 0000 Signed Impressions: Service Date/Time: December 02:42 - CONCLUSION: 1. Moderate volume hemoperitoneum. 2. Interval placement of a right internal/external biliary drainage catheter. This is in good position. Jung Lundberg Jr., MD Cholangiopancreatography MRI 12/02/17 0000 Signed Impressions: Service Date/Time: Saturday, December 02, 2017 08:17 - CONCLUSION: 1. Significant dilatation of the intrahepatic ducts ending at the confluence and possibility of stricture at this site or a Klatskin's tumor which is not visualized should be entertained. 2. Wedge-shaped focal fat right hepatic lobe. KLivier Jean MD Abdomen Ultrasound 12/01/17 0000 Signed Impressions: Service Date/Time: Friday, December 01, 2017 11:49 - CONCLUSION: 1. Intrahepatic biliary duct dilatation better seen on the CT examination. A lesion at the biliary duct confluence/common hepatic duct region still needs to be suspected. An ERCP or MRCP could be used to further evaluate this region. 2. Suspected area of focal hepatic steatosis at the anterior segment right lobe of the liver. 3. Gallstones Landry Zarate MD Objective Remarks Physical Exam GEN: Awake and responsive in bed. Responds appropriately to questions. NAD. slightly confused but re-directable CV: RRR no rubs, gallops, or murmurs appreciated. equal, strong pulses bilaterally. Resp: CTA bilaterally, no wheezes, rhonchi, or rales noted. Abdomen: soft, mildly tender. no rebound. Drain in place and functional. Skin: mild jaundice that has decreased in intensity and extension, barely noticeable at this point. Extremities: less edema hands R > L, and little to none of lower extremities Procedures 12/04/17 - Exploratory laparotomy, liver laceration repair 12/03/17 - Biliary drainage Medications and IVs Current Medications Medications (Trade) Dose Ordered Sig/Rafa Route PRN Reason Start Time Stop Time Status Last Admin Dose Admin Sodium Chloride (NS Flush) 2 ml UNSCH PRN IV FLUSH FLUSH AFTER USING IV ACCESS 12/01/17 11:00 Sodium Chloride (NS Flush) 2 ml BID IV FLUSH 12/01/17 21:00 12/09/17 08:48 Ondansetron HCl (Zofran Inj) 4 mg Q6H PRN IVP NAUSEA OR VOMITING 12/01/17 11:00 12/09/17 00:50 Acetaminophen/ Hydrocodone Bitart ([place] 5-325 Mg) 1 tab Q4H PRN PO PAIN SCALE 3 TO 5 12/01/17 11:00 Acetaminophen/ Hydrocodone Bitart ([place] 10-325 Mg) 1 tab Q4H PRN PO PAIN SCALE 6 TO 10 12/01/17 11:00 Naloxone HCl (Narcan Inj) 0.4 mg UNSCH PRN IV PUSH SEE LABEL COMMENTS 12/01/17 11:00 Senna/Docusate Sodium ([place]-Colace) 1 tab BID PO 12/01/17 21:00 12/08/17 20:46 Magnesium Hydroxide (Milk Of Magnesia Liq) 30 ml Q12H PRN PO Mild constipation 12/01/17 11:00 12/09/17 05:20 Sennosides (Senokot) 17.2 mg Q12H PRN PO Moderate constipation 12/01/17 11:00 Bisacodyl (Dulcolax Supp) 10 mg DAILY PRN RECTAL SEVERE CONSITIPATION 12/01/17 11:00 Lactulose (Lactulose Liq) 30 ml DAILY PRN PO SEVERE CONSITIPATION 12/01/17 11:00 Finasteride (Proscar) 5 mg DAILY PO 12/02/17 09:00 Future hold 12/09/17 08:49 Prednisone (Deltasone) 5 mg DAILY PO 12/02/17 09:00 Future hold Piperacillin Sod/ Tazobactam Sod 50 ml @ 100 mls/hr Q6H IV 12/01/17 16:00 12/09/17 08:49 Chlorhexidine Gluconate (Peridex 0.12% Liq) 15 ml BID@08,20 MT 12/04/17 08:00 12/08/17 20:00 Potassium Chloride 100 ml @ 50 mls/hr Q2H PRN IV For Potassium 2.8 - 3.2 mEq/L 12/05/17 07:15 12/09/17 12:52 Potassium Chloride 100 ml @ 50 mls/hr Q2H PRN IV For Potassium 2.8 - 3.2 mEq/L 12/05/17 07:15 Potassium Bicarb/ Potassium Chloride (K-Lyte Cl Eff) 50 meq UNSCH PRN PO For Potassium 3.3 - 3.5 mEq/L 12/05/17 07:15 Potassium Chloride 100 ml @ 25 mls/hr UNSCH PRN IV For Potassium 3.3 - 3.5 mEq/L 12/05/17 07:15 Potassium Chloride 100 ml @ 50 mls/hr Q2H PRN IV For Potassium 3.3 - 3.5 mEq/L 12/05/17 07:15 Magnesium Sulfate 4 gm/Sodium Chloride 100 ml @ 50 mls/hr UNSCH PRN IV For Magnesium 0.9 - 1.1 mg/dL 12/05/17 07:15 Magnesium Oxide (Mag-Ox) 800 mg UNSCH PRN PO For Magnesium 1.2 - 1.6 mg/dL 12/05/17 07:15 Magnesium Sulfate 2 gm/Sodium Chloride 100 ml @ 50 mls/hr UNSCH PRN IV For Magnesium 1.2 - 1.6 mg/dL 12/05/17 07:15 Potassium Phosphate (K-Phos) 2,000 mg Q4H PRN PO For Phosphorus < 2.5 mg/dL 12/05/17 07:15 12/09/17 12:32 Sodium Phosphate 30 mmol/Sodium Chloride 250 ml @ 42 mls/hr UNSCH PRN IV For Phosphorus < 2.5 mg/dL 12/05/17 07:15 Potassium Phosphate (K-Phos) 2,000 mg UNSCH PRN PO/TUBE SEE LABEL COMMENTS 12/05/17 07:15 Potassium Phosphate 30 mmol/ Sodium Chloride 260 ml @ 42 mls/hr UNSCH PRN IV SEE LABEL COMMENTS 12/05/17 07:15 12/08/17 14:24 Fluconazole/ Sodium Chloride 200 ml @ 100 mls/hr Q24H IV 12/06/17 17:00 12/08/17 18:05 Albuterol Sulfate (Albuterol Neb) 2.5 mg Q2HR NEB PRN NEB dyspnea 12/05/17 22:00 Metoprolol Tartrate (Lopressor Inj) 2.5 mg Q6H PRN IV PUSH HR>120 12/06/17 13:00 12/09/17 05:19 Levothyroxine Sodium (Synthroid) 100 mcg DAILY@0600 PO 12/08/17 06:00 12/09/17 06:00 Melatonin (Melatonin) 5 mg HS PRN PO insomnia 12/07/17 21:00 12/08/17 23:44 Acetaminophen (Tylenol) 500 mg Q6H PRN PO pain 12/08/17 08:30 Hydrocortisone Sodium Succinate (SoluCORTEF INJ) 25 mg Taper Q12HR IV PUSH 12/08/17 21:00 12/10/17 20:59 12/09/17 08:49 Albuterol/ Ipratropium (Duoneb Neb) 1 ampule Q6HR NEB NEB 12/09/17 16:00 Metoprolol Tartrate (Lopressor) 25 mg Q8HR PO 12/09/17 14:00 12/09/17 14:55 Pantoprazole Sodium (Protonix Inj) 40 mg DAILY IV PUSH 12/10/17 09:00 (Lorin Pollock MD R2) Date of Insertion: Dec 03, 2017 Line: Central Venous Catheter Location: Internal, Jugular (Loirn Pollock MD R2) A/P Assessment and Plan 82 yo male with h/o PMR, BPH, hyperlipidemia presenting with: (Lorin Pollock MD R2) Attending Attestation Patient seen and examined. Case reviewed and discussed with the resident team. Agree with plan of care as discussed with me and documented in the resident note. he continues to improve daily (La Wood MD) Problem List: (1) Liver hemorrhage ICD Codes: K76.89 - Other specified diseases of liver Status: Acute Plan: from procedure for dilated duct in liver, s/p surgery on the to repair the liver and stop bleeding. stable now. Drain will be removed today per surgery. encourage OOB activity. PT was consulted and his most recent session was today. PO tylenol for pain. reinforce taking due to pain could be underlying reason for tachycardic episodes. appreciate help from Dr Montero and Intensivists (2) Abdominal pain ICD Codes: R10.9 - Unspecified abdominal pain Status: Acute Plan: Sudden onset abdominal pain worst in RUQ - has since progressed to tenderness to deep palpation with minimal pain. CT findings as above MRCP findings as above Significant leukocytosis on admission initially improved with Zosyn, now increased post-operatively above 50k, CCM explained that this presentation manifests as a result of hemorrhagic shock and stress his body underwent. WBC trending upward to 41.6. UA with hematuria, many WBC on admission Differential including malignancy, choledocholithiasis, cholecystitis, kidney stone, UTI - Currently in ICU - care coordinated with GI, surgery, ICU, and Med team Tabatha MATOS has signed off. - Zosyn 3.375 Q6H IV to cover UTI, abdominal pathogens initially, will continue for duration of surgical drainage and consider d/c at that time - Fluconazole added by [facility] for Marielle albicans in body fluid culture - PO Abx transition when WBC trends downward per ID - Advance diet to softs - f/u outpatient pending GI diagnostic impression/imaging - still needs to determine the presence of tumor vs not (3) Polymyalgia rheumatica ICD Codes: M35.3 - Polymyalgia rheumatica Status: Chronic Plan: Pain stable, was on 5 mg of prednisone which is enough to suppress his adrenals. He is on some stress dose steroids to help him with his current problems but he can likely be weaned back down to 5 mg once this crisis is over Steroids were decreased by half as a means to control fluids and avoid 3rd spacing of fluid. 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 He has been found to have a candidal infection. Have been weaning him down on his steroids which could also be pushing up his WBC. WBC trending upward today. -Coverage with Zosyn as above as well as fluconazole appreciate help ID - transition to PO Abx when WBC improves per ID. 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 will give some po K as he is being diuresed and can take pills now Nutrition: Diet regular basic once able to start eating again DVT: Lovenox 40 mg SQ daily initially, unsure when he can resume as he had a serious life threatening bleed. watching his platelets Dispo: admitted. will be here for days as he is continuing to recover (Lorin Pollock MD R2) Problem Qualifiers (1) Abdominal pain: Qualified Codes: R10.11 - Right upper quadrant pain (2) BPH (benign prostatic hyperplasia): Qualified Codes: N40.0 - Benign prostatic hyperplasia without lower urinary tract symptoms (3) Hypothyroidism: Qualified Codes: E03.9 - Hypothyroidism, unspecified (4) Leukocytosis: Qualified Codes: D72.829 - Elevated white blood cell count, unspecified Lorin Pollock MD R2 Dec 09, 2017 14:02 La Wood MD Dec 11, 2017 12:29
[2017-12-09] MEDS: METOPROLOL TARTRATE 25 MG TAB PO SCH ×2 (14:55→20:32)
[2017-12-09] MEDS ORDERED: RESP: ALBUTEROL 2.5 MG/IPRATROPIUM 0.5 MG NEB (SCH) NEB (16:00)
[2017-12-09] MEDS: FLUCONAZOLE 400 MG PREMIX BAG 200 ML IV SCH (17:05)
[2017-12-09] MEDS ORDERED: LIDOCAINE HCL 2% 100 MG/5 ML SYRINGE ONE (19:47)
[2017-12-09] MEDS ORDERED: ATROPINE SULFATE 1 MG/10 ML SYRINGE ONE (19:47)
[2017-12-09] MEDS ORDERED: EPINEPHrine HCL (1:10,000) 1 MG/10 ML SYRINGE ONE (19:47)
--- NOTE | 2017-12-09 20:24 | RADRPT ---
EXAM DATE/TIME: 12/09/2017 20:02 [place] COMPARISON: No previous studies available for comparison. INDICATIONS : Altered mental status. RADIATION DOSE: 44.21 CTDIvol (mGy) ; Patient motion MEDICAL HISTORY : None SURGICAL HISTORY : None. ENCOUNTER: Initial ACUITY: 1 day PAIN SCALE: 0/10 LOCATION: cranial TECHNIQUE: Multiple contiguous axial images were obtained of the head. Using automated exposure control and adj ustment of the mA and/or kV according to patient size, radiation dose was kept as low as reasonably a chievable to obtain optimal diagnostic quality images. DICOM format image data is available electro nically for review and comparison. FINDINGS: CEREBRUM: The ventricles are normal for age. No evidence of midline shift, mass lesion, hemorrhage or acute in farction. No extra-axial fluid collections are seen. POSTERIOR FOSSA: The cerebellum and brainstem are intact. The 4th ventricle is midline. The cerebellopontine angle i s unremarkable. EXTRACRANIAL: The visualized portion of the orbits is intact. SKULL: The calvaria is intact. No evidence of skull fracture. CONCLUSION: Negative noncontrast head CT. Landry Ryan MD on December 09, 2017 at 20:21 Board Certified Radiologist. This report was verified electronically.
[2017-12-09 20:35] LABS: BILIRUBIN, URINE SMALL (NEG); BLOOD, URINE MOD (NEG); GLUCOSE,URINE NEG (NEG); KETONE, URINE NEG (NEG); MUCUS URINE FEW /lpf (OCC); NITRITE,URINE NEG (NEG); PH, URINE 7.5 (5.0-8.5); URINE COLOR YELLOW (YELLW/STRAW); URINE LEUKOCYTE ESTERASE TRACE (NEG)
[2017-12-09] MEDS: METOPROLOL TARTRATE 5 MG/5 ML VIAL IV PUSH SCH (21:27)
[2017-12-10] VITALS (16 sets, daily range): BP systolic 120–169; BP diastolic 68–93; PULSE 79–118; RESP 18–26; TEMP 98–98.2; O2SAT 95–99
[2017-12-10] MEDS: METOPROLOL TARTRATE 5 MG/5 ML VIAL IV PUSH SCH ×4 (03:00→20:40)
[2017-12-10] MEDS: PIPERACIL-TAZO 3.375 GM PREMIX 50 ML IV SCH ×4 (03:00→20:39)
[2017-12-10] MEDS: RESP: ALBUTEROL 2.5 MG/IPRATROPIUM 0.5 MG NEB (SCH) NEB ×4 (03:53→21:29)
[2017-12-10] MEDS: HYDROCORTISONE SOD SUCCINATE 100 MG VIAL IV PUSH SCH (04:46)
[2017-12-10] MEDS: LEVOTHYROXINE SODIUM 100 MCG TAB PO SCH (04:46)
[2017-12-10 06:53] LABS: BASOPHIL % 0.1 % (0.0-2.0); HEMATOCRIT 26.6 % (39.0-51.0); HEMOGLOBIN 8.8 GM/DL (13.0-17.0); LYMPH % 1.3 % (9.0-44.0); LYMPHOCYTE # 0.5 TH/MM3 (1.0-4.8); MEAN CELL VOLUME 90.2 FL (80.0-100.0); MEAN CORPUSCULAR HEMOGLOBIN 29.7 PG (27.0-34.0); MEAN CORPUSCULAR HGB CONC 32.9 % (32.0-36.0); MEAN PLATELET VOLUME 9.8 FL (7.0-11.0); MONO % 4.8 % (0.0-8.0); MONOCYTE # 1.8 TH/MM3 (0-0.9); NEUT % 93.8 % (16.0-70.0); PLATELET COUNT 161 TH/MM3 (150-450); RED BLOOD COUNT 2.95 MIL/MM3 (4.50-5.90); RED CELL DISTRIBUTION WIDTH 16.7 % (11.6-17.2); WHITE BLOOD COUNT 38.4 TH/MM3 (4.0-11.0)
[2017-12-10 07:10] LABS: ALBUMIN 2.2 GM/DL (3.4-5.0); AST (GOT) 48 U/L (15-37); BICARBONATE 32.5 MEQ/L (21.0-32.0); BLOOD UREA NITROGEN 22 MG/DL (7-18); CALCIUM 8.9 MG/DL (8.5-10.1); CHLORIDE 109 MEQ/L (98-107); GLOMERULAR FILTRATION RATE 81 ML/MIN (>89); GLUCOSE,RANDOM 150 MG/DL (74-106); MAGNESIUM 2.4 MG/DL (1.5-2.5); SODIUM (NA) 149 MEQ/L (136-145)
[2017-12-10 07:13] LABS: ALKALINE PHOSPHATASE 131 U/L (45-117); ALT (GPT) 51 U/L (12-78); PHOSPHORUS 2.8 MG/DL (2.5-4.9); TOTAL BILIRUBIN ADULT 5.7 MG/DL (0.2-1.0); TOTAL PROTEIN 5.1 GM/DL (6.4-8.2)
[2017-12-10] MEDS: CHLORHEXIDINE 0.12% (ORAL KIT) 15 ML CUP MT SCH ×2 (08:00→20:00)
[2017-12-10] MEDS: predniSONE 5 MG TAB PO SCH (08:10)
[2017-12-10] MEDS: FINASTERIDE 5 MG TAB PO SCH (08:10)
[2017-12-10] MEDS: DOCUSATE SODIUM 50 MG/SENNA 8.6 MG TAB PO SCH ×2 (08:10→20:40)
[2017-12-10] MEDS: PANTOPRAZOLE SODIUM 40 MG VIAL IV PUSH SCH (08:10)
[2017-12-10] MEDS: ACETAMINOPHEN/HYDROcodone 325 MG/10 MG TAB PO PRN ×3 (08:10→20:40)
[2017-12-10] MEDS: SODIUM CHLORIDE 0.9% FLUSH 10 ML FLUSH IV FLUSH SCH ×2 (08:11→20:41)
[2017-12-10 08:29] LABS: BANDS 5 % (0-6); MONOCYTES 2 % (0-8); NEUTROPHIL # MANUAL DIFF 37.6 TH/MM3 (1.8-7.7); POLYS (SEG NEUTROPHILS) 93 % (16-70)
[2017-12-10 08:31] LABS: TARGET CELLS 1+ (NORMAL)
--- NOTE | 2017-12-10 09:51 | HHI.PR ---
Subjective Subjective Notes confused overnight, pulled stuff out. eating some per . bowels working. drain clearing up and putting out less per RN Objective Vitals/I&O Vital Signs Date Time Temp Pulse Resp B/P (MAP) Pulse Ox O2 Delivery O2 Flow Rate FiO2 12/10/17 08:37 97 Nasal Cannula 2.00 12/10/17 06:00 102 12/10/17 04:00 98.0 23 169/93 (118) 12/08/17 07:00 40 Labs Laboratory Tests Test 12/09/17 17:55 12/09/17 19:15 12/10/17 05:40 Potassium Level 3.7 3.5 Phosphorus Level 2.0 2.8 Ammonia 43 Urine Color YELLOW Urine Turbidity HAZY Urine pH 7.5 Urine Specific [place] 1.016 Urine Protein 30 Urine Glucose (UA) NEG Urine Ketones NEG Urine Occult Blood MOD Urine Nitrite NEG Urine Bilirubin SMALL Urine Urobilinogen LESS THAN 2.0 Urine Leukocyte Esterase TRACE Urine RBC 53 Urine WBC 2 Urine Mucus FEW Microscopic Urinalysis Comment CULT NOT INDICATED White Blood Count 38.4 Red Blood Count 2.95 Hemoglobin 8.8 Hematocrit 26.6 Mean Corpuscular Volume 90.2 Mean Corpuscular Hemoglobin 29.7 Mean Corpuscular Hemoglobin Concent 32.9 Red Cell Distribution Width 16.7 Platelet Count 161 Mean Platelet Volume 9.8 Neutrophils (%) (Auto) 93.8 Lymphocytes (%) (Auto) 1.3 Monocytes (%) (Auto) 4.8 Eosinophils (%) (Auto) 0.0 Basophils (%) (Auto) 0.1 Neutrophils # (Auto) 36.0 Lymphocytes # (Auto) 0.5 Monocytes # (Auto) 1.8 Eosinophils # (Auto) 0.0 Basophils # (Auto) 0.0 CBC Comment AUTO DIFF Differential Total Cells Counted 100 Neutrophils % (Manual) 93 Band Neutrophils % 5 Monocytes % 2 Neutrophils # (Manual) 37.6 Differential Comment FINAL DIFF MANUAL Platelet Estimate NORMAL Platelet Morphology Comment NORMAL Basophilic Stippling FAINT Target Cells 1+ Blood Urea Nitrogen 22 Creatinine 0.90 Random Glucose 150 Total Protein 5.1 Albumin 2.2 Calcium Level 8.9 Magnesium Level 2.4 Alkaline Phosphatase 131 Aspartate Amino Transf (AST/SGOT) 48 Alanine Aminotransferase (ALT/SGPT) 51 Total Bilirubin 5.7 Sodium Level 149 Chloride Level 109 Carbon Dioxide Level 32.5 Anion Gap 8 Estimat Glomerular Filtration Rate 81 Date/Time Source Procedure Growth Status 12/10/17 05:46 Blood Peripheral Aerobic Blood Culture Pending Received 12/10/17 05:46 Blood Peripheral Anaerobic Blood Culture Pending Received 12/04/17 00:42 Fluid Bile Fluid Gram Stain - Final Complete 12/04/17 00:42 Body Fluid Culture - Final Marielle Albicans Complete 12/01/17 06:30 Urine Clean Catch Urine Culture - Final Staphylococcus Epidermidis Complete Radiology Last Impressions Chest X-Ray 12/06/17 0000 Signed Impressions: Service Date/Time: Wednesday, December 06, 2017 07:38 - CONCLUSION: 1. Small left pleural effusion. 2. Cardiomegaly. 3. No acute focal pulmonary infiltrate or pulmonary vascular congestion. Allen Tony MD Abdomen X-Ray [id number] Signed Impressions: Service Date/Time: Sunday, December 03, 2017 18:15 - CONCLUSION: Nonspecific abdomen. Luz Jean MD Bile Duct Drainage 12/03/17 0000 Signed Impressions: Service Date/Time: Sunday, December 03, 2017 14:10 - CONCLUSION: Uncomplicated biliary stent placement as above. Bj Hurtado MD Abdomen/Pelvis CT 12/03/17 0000 Signed Impressions: Service Date/Time: December 02:42 - CONCLUSION: 1. Moderate volume hemoperitoneum. 2. Interval placement of a right internal/external biliary drainage catheter. This is in good position. Jung Lundberg Jr., MD Cholangiopancreatography MRI 12/02/17 0000 Signed Impressions: Service Date/Time: Saturday, December 02, 2017 08:17 - CONCLUSION: 1. Significant dilatation of the intrahepatic ducts ending at the confluence and possibility of stricture at this site or a Klatskin's tumor which is not visualized should be entertained. 2. Wedge-shaped focal fat right hepatic lobe. Luz Jean MD Abdomen Ultrasound 12/01/17 0000 Signed Impressions: Service Date/Time: Friday, December 01, 2017 11:49 - CONCLUSION: 1. Intrahepatic biliary duct dilatation better seen on the CT examination. A lesion at the biliary duct confluence/common hepatic duct region still needs to be suspected. An ERCP or MRCP could be used to further evaluate this region. 2. Suspected area of focal hepatic steatosis at the anterior segment right lobe of the liver. 3. 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 AGREE WITH KEEPING IN ISC. DC DRAIN . H/H STABLE MENTAL STATUS WORK UP PENDING Chance Guevara MD, FACS, MD Dec 10, 2017 09:50
--- NOTE | 2017-12-10 12:31 | HHI.FPPN ---
Subjective Remarks Pt seen and examined this morning, resting comfortably in bed. His is present at bedside. Pt has been afebrile, heart rate has been intermittently elevated to 118, sinus tachycardia. He did take pain medication this morning for abdominal discomfort. (Sunny Boucher MD R3) Objective Vitals Vital Signs Date Time Temp Pulse Resp B/P (MAP) Pulse Ox O2 Delivery O2 Flow Rate FiO2 12/10/17 10:00 104 12/10/17 09:10 20 12/10/17 08:37 97 Nasal Cannula 2.00 12/10/17 08:00 98.1 118 22 168/81 (110) 95 12/10/17 08:00 118 12/10/17 07:00 97 Nasal Cannula 2.00 12/10/17 06:00 102 12/10/17 04:00 98.0 103 23 169/93 (118) 99 12/10/17 04:00 103 12/10/17 03:54 97 Nasal Cannula 2.00 12/10/17 02:00 99 12/10/17 00:00 110 12/10/17 00:00 98.0 110 23 127/72 (90) 97 12/09/17 22:00 105 12/09/17 20:57 100 Nasal Cannula 2.00 12/09/17 20:00 98.8 112 23 170/77 (108) 98 12/09/17 20:00 112 12/09/17 19:00 98 Nasal Cannula 2.00 12/09/17 18:00 110 12/09/17 16:00 98.7 122 29 137/71 (93) 98 12/09/17 16:00 112 12/09/17 14:00 127 I/O 12/09/17 12/09/17 12/09/17 12/10/17 12/10/17 12/10/17 07:00 15:00 23:00 07:00 15:00 23:00 Intake Total 250 ml 820 ml 780 ml Output Total 1620 ml 1440 ml 1035 ml Balance -1370 ml -620 ml -255 ml Intake Oral 250 ml 820 ml 480 ml IV Total 300 ml Output Urine Total 1225 ml 1000 ml 800 ml Drainage Total 395 ml 440 ml 235 ml # Bowel Movements 0 1 0 (Sunny Boucher MD R3) Result Diagram: 12/10/17 0540 12/10/17 0540 Objective Remarks Physical Exam GEN: Awake and responsive in bed. Responds appropriately to questions. NAD. CV: RRR no rubs, gallops, or murmurs appreciated. equal, strong pulses bilaterally. Resp: CTA bilaterally, no wheezes, rhonchi, or rales noted. Abdomen: soft, mildly tender. no rebound. Drain in place. Skin: minimal jaundice Procedures 12/04/17 - Exploratory laparotomy, liver laceration repair 12/03/17 - Biliary drainage (Sunny Boucher MD R3) Date of Insertion: Dec 03, 2017 Line: Central Venous Catheter Location: Internal, Jugular (Sunny Boucher MD R3) A/P Assessment and Plan 82 yo male with h/o PMR, BPH, hyperlipidemia presenting with: Discharge Planning Anticipate discharge once patient is clinically stable, time frame unclear. (Sunny Boucher MD R3) Attending Attestation Patient seen and examined. Case reviewed and discussed with the resident team. Agree with plan of care as discussed with me and documented in the resident note. some confusion. he has not slept well since the surgery because he has refused pain meds. he is sleeping a bit better now. hopefully he can be mobilized more with PT and move out to a regular bed. On review of his tele he has had only sinus rhythm and tach no abnormal rhythms (La Wood MD) Problem List: (1) Liver hemorrhage ICD Codes: K76.89 - Other specified diseases of liver Status: Acute Plan: From procedure for dilated duct in liver, s/p surgery on the to repair the liver and to stop bleeding. Stable now. Drain will be removed today per surgery. Encourage OOB activity, OT consulted [place] for pain, pain could be underlying reason for tachycardic episodes. Appreciate assistance and recommendations from Dr Montero and Intensivists (2) Abdominal pain ICD Codes: R10.9 - Unspecified abdominal pain Status: Acute Plan: Stable [place] as needed for pain CT findings as below MRCP findings as below Significant leukocytosis on admission initially improved with Zosyn, increased post-operatively above 50k, CCM explained that this presentation manifests as a result of hemorrhagic shock and stress his body underwent. Differential including malignancy, choledocholithiasis, cholecystitis, kidney stone, UTI - Currently in ICU - care coordinated with GI, surgery, ICU, and FM Med team A. GI has signed off. - Zosyn 3.375 Q6H IV to cover UTI, abdominal pathogens initially, will continue for duration of surgical drainage and consider d/c at that time - Fluconazole added by [facility] for Marielle albicans in body fluid culture - PO Abx transition when WBC trends downward per ID - Advance diet to softs - f/u outpatient pending GI diagnostic impression/imaging - still needs to determine the presence of tumor vs not CT of the abdomen and pelvis: 12/04/17: Moderate volume hemoperitoneum. Interval placement of a right internal/ external earlier a drainage catheter. Drain good position. MRCP: 12/02/17: Significant dilation of the intrahepatic ducts ending in the confluence and possibility of stricture at the site or a lack since tumor which is not visualized should be entertained. Wedge-shaped focal fat right hepatic lobe (3) Polymyalgia rheumatica ICD Codes: M35.3 - Polymyalgia rheumatica Status: Chronic Plan: Pain stable, was on 5 mg of prednisone which is enough to suppress his adrenals. Continue prednisone 5 mg daily He is currently on a hydrocortisone 25 mg taper (4) BPH (benign prostatic hyperplasia) ICD Codes: N40.0 - Benign prostatic hyperplasia without lower urinary tract symptoms Status: Chronic Plan: Symptoms currently well controlled, continue home finasteride (5) Hypothyroidism ICD Codes: E03.9 - Hypothyroidism, unspecified Status: Chronic Plan: Continue home Synthroid (6) Leukocytosis ICD Codes: D72.829 - Elevated white blood cell count, unspecified Status: Acute Plan: very high WBCs discussed with [employer] and WBCs up to the 50s can occur with intraabdominal processes and infections. He has been found to have a candidal infection. Have been weaning him down on his steroids which could also be pushing up his WBC. -Coverage with Zosyn as above as well as fluconazole appreciate help ID - transition to PO Abx when WBC improves per ID. (7) FEN/PPX Plan: Fluids: per surgery and [employer] Electrolytes: Monitor and replace PRN, should be on ICU protocol. will give some po K as he is being diuresed and can take pills now Nutrition: Diet regular basic once able to start eating again DVT: We'll hold off on chemotherapy prophylaxis due to recent bleed (Sunny Boucher MD R3) Problem Qualifiers (1) Abdominal pain: Qualified Codes: R10.11 - Right upper quadrant pain (2) BPH (benign prostatic hyperplasia): Qualified Codes: N40.0 - Benign prostatic hyperplasia without lower urinary tract symptoms (3) Hypothyroidism: Qualified Codes: E03.9 - Hypothyroidism, unspecified (4) Leukocytosis: Qualified Codes: D72.829 - Elevated white blood cell count, unspecified Sunny Boucher MD R3 Dec 10, 2017 12:31 [place] MD Dec 11, 2017 12:34
[2017-12-10] MEDS: FLUCONAZOLE 400 MG PREMIX BAG 200 ML IV SCH (15:46)
--- NOTE | 2017-12-10 20:29 | HHI.CCPN ---
Subjective Remarks/Hospital Course 82-year-old male with past history of BPH, hyperlipidemia, PMR who is admitted to [facility] 12/01/17 with right upper quadrant abdominal pain and jaundice. LFTs were elevated in an obstructive pattern. CT demonstrated intrahepatic biliary duct dilatation. A mass was not clearly seen. 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 He underwent percutaneous biliary stent placement and drain by interventional radiology 12/03/17 (Dr. Hurtado). He was hypotensive post procedure and this was initially managed by family partner with 1.5 L fluid resuscitation and stress dose steroids, abx for possible biliary sepsis. Hypotension persisted and he was transferred to ICU with critical care medicine consult. When I went to evaluate the patient he appeared pale with cool skin concerning for hemorrhagic shock. CBC demonstrated leukocytosis 27.5 and hemoglobin was 9.4 from a baseline of 13. Place central line and art line, started neosynephrine, began transfusing blood products until appropriately stabilized for transition to CT scanner. CT scan demonstrated moderate hemoperitoneum with hemorrhage adjacent to the liver. The biliary drain was in good position. Called Dr. Montero who will take patient to OR for emergent laparotomy. agreeable to risks of surgery. Upon transition to OR he had received PRBC 7 units, 2 units FFP and 1 gram calcium chloride with 1 more unit of FFP, 1 unit platelets, 1 unit cryo ready to transfuse. 12/04/17: Status post exploratory laparotomy and control of liver laceration bleeding by Dr. montero, findinL hemoperitoneum, Capsular tear Segment of the liver. Remains on Chas-Synephrine at 50 mcg/m. Repeat lab work showed platelet count of 50 hemoglobin of 11.9. Platelet transfusion ordered. at the bedside 12/05/17: Tolerating CPAP, follows commands but tachycardic. White count increased to 52,000 biliary fluid with Jabari. I have increase Diflucan to 400 mg daily and consulted ID. Urine output minimal, no response to fluid bolus. Weight up by 10 kg, will attempt diuresis 12/06/17: Extubated yesterday. Breathing comfortably. Tachycardic up to 160s, white count remains high at 50,000, tachycardia most likely from SIRS response/ sepsis. Responded to beta thania. Urine output adequate with Lasix. 16 KG fluid up. Start scheduled Lasix 40 mg IV every 8 hours with IV albumin. Keep nothing by mouth until cleared by general surgery 12/07: Afebrile. Heart rate in the 120s. Off all vasopressors. Tolerating full liquid diet. Positive BM 1. Pain control. 12/08: Afebrile. Pulse less than 100. Tolerating full liquid diet. Positive BM. Pain is controlled. 12/09: Currently Tmax 99.3. Elevated WBC again today. Tachycardic with movement. Pleasantly confused but redirectable. CT brain pending. Subjective 12/10: Afebrile. Slightly downtrending WBC count. Agitated overnight. CT brain no acute findings. Ammonia level slightly elevated at 43. Less tachycardic on scheduled metoprolol. Objective Vital Signs Date Time Temp Pulse Resp B/P (MAP) Pulse Ox O2 Delivery O2 Flow Rate FiO2 12/10/17 20:16 98 Nasal Cannula 2.00 12/10/17 18:00 79 12/10/17 16:00 98.2 26 139/80 (99) 12/08/17 07:00 40 Intake and Output 12/10/17 12/10/17 12/11/17 08:00 16:00 00:00 Intake Total 780 ml 50 ml 850 ml Output Total 1035 ml 950 ml Balance -255 ml 50 ml -100 ml Result Diagram: 12/10/17 0540 12/10/17 0540 Other Results Microbiology Date/Time Source Procedure Growth Status 12/10/17 05:46 Blood Peripheral Aerobic Blood Culture Pending Received 12/10/17 05:46 Blood Peripheral Anaerobic Blood Culture Pending Received 12/04/17 00:42 Fluid Bile Fluid Gram Stain - Final Complete 12/04/17 00:42 Body Fluid Culture - Final Jabari Albicans Complete 12/01/17 06:30 Urine Clean Catch Urine Culture - Final Staphylococcus Epidermidis Complete Imaging Last Impressions Head CT 12/09/17 0000 Signed Impressions: Service Date/Time: Saturday, December 09, 2017 20:02 - CONCLUSION: Negative noncontrast head CT. Landry Ryan MD Chest X-Ray 12/07/17 0600 Signed Impressions: Service Date/Time: Thursday, December 07, 2017 04:09 - CONCLUSION: No significant change. Persistent left pleural effusion and left lower lobe atelectasis versus consolidation. Jerry Laureano MD Abdomen X-Ray [id number] Signed Impressions: Service Date/Time: Sunday, December 03, 2017 18:15 - CONCLUSION: Nonspecific abdomen. Luz Jean MD Bile Duct Drainage 12/03/17 0000 Signed Impressions: Service Date/Time: Sunday, December 03, 2017 14:10 - CONCLUSION: Uncomplicated biliary stent placement as above. Bj Hurtado MD Abdomen/Pelvis CT 12/03/17 0000 Signed Impressions: Service Date/Time: December 02:42 - CONCLUSION: 1. Moderate volume hemoperitoneum. 2. Interval placement of a right internal/external biliary drainage catheter. This is in good position. Jung Lundberg Jr., MD Cholangiopancreatography MRI 12/02/17 0000 Signed Impressions: Service Date/Time: Saturday, December 02, 2017 08:17 - CONCLUSION: 1. Significant dilatation of the intrahepatic ducts ending at the confluence and possibility of stricture at this site or a Klatskin's tumor which is not visualized should be entertained. 2. Wedge-shaped focal fat right hepatic lobe. Luz Jean MD Abdomen Ultrasound 12/01/17 0000 Signed Impressions: Service Date/Time: Friday, December 01, 2017 11:49 - CONCLUSION: 1. Intrahepatic biliary duct dilatation better seen on the CT examination. A lesion at the biliary duct confluence/common hepatic duct region still needs to be suspected. An ERCP or MRCP could be used to further evaluate this region. 2. Suspected area of focal hepatic steatosis at the anterior segment right lobe of the liver. 3. Gallstones Landry Zarate MD Objective Remarks GENERAL: Pale appearing male, on nasal cannula. In no acute distress SKIN: Cool to touch. Positive jaundice HEAD: Atraumatic. Normocephalic. EYES: Pupils equal and round about 3 mm bilaterally and reactive. Pallor+ positive scleral icterus ENT: No nasal bleeding or discharge. Mucous membranes moist and pink. Oropharynx without erythema NECK: Trachea midline. CARDIOVASCULAR: Tachycardic, RR. S1, S2. No S4. Without murmur RESPIRATORY: Diminished breath sounds throughout. No wheezing rales or rhonchi. GASTROINTESTINAL: Biliary and peritoneal drain in place. Peroneal drain with serosanguineous output-25 mL in 24 hours. Biliary drain 300 cc MUSCULOSKELETAL: Extremities without difficulty and peripheral edema. NEUROLOGICAL: Alert awake oriented 3. No focal deficits. Cranial nerves II through XII grossly intact. Strength is equal symmetric. Normal sensation. Urinary Catheter: Yes Assessment to: Continue Carmona insert reason: ICU Pt Getting Diuretics Vascular Central Line Catheter: Yes Assessment to: Remove Date of Insertion: Dec 03, 2017 Date of Removal: Dec 10, 2017 Line: Central Venous Catheter Location: Internal, Jugular A/P Assessment and Plan NEURO/PSYCH: Insomnia Currently on hydrocodone/acetaminophen 5-10/325 one tablet every 4 hours when necessary pain 1-10 Melatonin 5 mg at night as needed. He received temazepam 7.5 mg tablets 11 overnight 12/06 CT brain 12/19 revealed no acute intracranial findings As needed haloperidol 2 mill grams IV every 4 hours when necessary agitation RESP: Acute respiratory failure resolved History of tobacco use Extubated 12/05/17, tolerating well respiratory grullon. Nasal cannula to maintain saturations greater than equal to 92% currently 2 L Incentive spirometry while awake Albuterol/ipratropium aerosols every 6 hours scheduled and when necessary albuterol aerosols every 2 hours dyspnea Aggressive pulmonary toilet EzPAP and Acapella scheduled every 6 hours incentive spirometry every hour while awake CV: Hemorrhagic shock-resolved Sinus tachycardia/SIRS We will discontinue furosemide. Started on acetazolamide first dose/250 mg 1 due to contraction alkalosis Due to massive transfusions Is >>> O's throughout this hospitalization Stress dose steroids as per below Status post multiple blood and blood product transfusion as below Written for as needed metoprolol. 2.5 mg every 6 hours as needed for heart rate greater than 120. Family practice changed 5 mg IV every 6 hours scheduled GI: Gastroesophageal reflux disease Intrahepatic biliary obstruction status post biliary stent and drain 12/03/16 ( Dr. Hurtado) Jabari cholangitis Stage liver laceration Liver laceration with hemoperitoneum Full liquid diet s/p OR ex lap with Dr. Montero, 12/04 and control of bleeding from liver capsular laceration with Surgicel and packing GI following for biliary obstruction ? 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 Patient is on omeprazole 20 mg daily at home Docusate sodium/senna 1 tablet twice a day for bowel regimen. Having bowel movements FEN/RENAL: BPH Hypernatremia Continue finasteride 5 mg daily Carmona to be maintained while on diuretics. Monitor intake and output. Replace electrolytes per ICU protocol ID: Severe sepsis Jabari cholangitis Staph epi UTI s/p biliary stent, jabari albicans in biliary culture 12/04 Urine cultures positive for pansensitive staph epi 12/01 Blood cultures 12/03 no growth. On piperacillin/tazobactam, and fluconazole 400 daily ID consulted- Dr. Gill Pertinent cultures jabari albicans in biliary culture 12/04 Urine cultures positive for pansensitive staph epi 12/01 Blood cultures 12/03 no growth. Repeat blood cultures 2 today HEME: Normocytic anemia Thrombocytopenia Leukocytosis Transfused 7 units packed red cells, 3 units FFP, 1 unit cryo on 12/03 - 12/04 Serial CBC. Replace as clinically indicated follow trends ENDO: Hypothyroidism Chronic prednisone 5 mg daily for rheumatoid arthritis Continue Synthroid 112 g - 100 micrograms daily. TSH 0.2. Normal free T4. Hydrocortisone weaning currently 25 mg every 12 hours. Stop date 12/10 PROPH: SCDs for DVT prophylaxis. Holding enoxaparin due to acute hemorrhage. Pantoprazole 40 mg IV 24 ACCESS: Right IJ central venous line placed 12/03/17 - 12/10. Left femoral art line placed 12/03/17 --12/07 Level II follow-up Gerard Hernandez MD Dec 10, 2017 20:28
[2017-12-11] VITALS (14 sets, daily range): BP systolic 102–158; BP diastolic 58–101; PULSE 88–118; RESP 14–27; TEMP 97.8–99.3; O2SAT 94–97
[2017-12-11] MEDS: ACETAMINOPHEN/HYDROcodone 325 MG/10 MG TAB PO PRN ×2 (00:56→04:42)
[2017-12-11] MEDS: RESP: ALBUTEROL 2.5 MG/IPRATROPIUM 0.5 MG NEB (SCH) NEB ×4 (03:59→20:09)
[2017-12-11] MEDS: METOPROLOL TARTRATE 5 MG/5 ML VIAL IV PUSH SCH ×2 (04:19→10:07)
[2017-12-11] MEDS: PIPERACIL-TAZO 3.375 GM PREMIX 50 ML IV SCH ×4 (04:19→21:39)
[2017-12-11] MEDS: LEVOTHYROXINE SODIUM 100 MCG TAB PO SCH (04:19)
[2017-12-11 04:38] LABS: HEMATOCRIT 31.4 % (39.0-51.0); HEMOGLOBIN 9.9 GM/DL (13.0-17.0); MEAN CELL VOLUME 90.1 FL (80.0-100.0); MEAN CORPUSCULAR HEMOGLOBIN 28.4 PG (27.0-34.0); MEAN CORPUSCULAR HGB CONC 31.6 % (32.0-36.0); MEAN PLATELET VOLUME 9.6 FL (7.0-11.0); PLATELET COUNT 181 TH/MM3 (150-450); RED BLOOD COUNT 3.49 MIL/MM3 (4.50-5.90); RED CELL DISTRIBUTION WIDTH 16.5 % (11.6-17.2); WHITE BLOOD COUNT 42.6 TH/MM3 (4.0-11.0)
[2017-12-11 04:58] LABS: ALBUMIN 2.3 GM/DL (3.4-5.0); ALT (GPT) 64 U/L (12-78); AST (GOT) 54 U/L (15-37); BICARBONATE 34.7 MEQ/L (21.0-32.0); BLOOD UREA NITROGEN 23 MG/DL (7-18); CALCIUM 9.5 MG/DL (8.5-10.1); CHLORIDE 109 MEQ/L (98-107); CREATININE 0.87 MG/DL (0.60-1.30); GLOMERULAR FILTRATION RATE 84 ML/MIN (>89); GLUCOSE,RANDOM 92 MG/DL (74-106); MAGNESIUM 2.5 MG/DL (1.5-2.5); PHOSPHORUS 2.4 MG/DL (2.5-4.9); SODIUM (NA) 147 MEQ/L (136-145)
[2017-12-11 05:01] LABS: ALKALINE PHOSPHATASE 166 U/L (45-117); TOTAL BILIRUBIN ADULT 5.4 MG/DL (0.2-1.0); TOTAL PROTEIN 5.7 GM/DL (6.4-8.2)
[2017-12-11 05:29] LABS: BANDS 1 % (0-6); METAMYELOCYTES 5 % (0-1); NEUTROPHIL # MANUAL DIFF 42.6 TH/MM3 (1.8-7.7); POLYS (SEG NEUTROPHILS) 94 % (16-70)
[2017-12-11 05:30] LABS: STOMATOCYTES 2+ (NORMAL)
--- NOTE | 2017-12-11 07:46 | HHI.CCPN ---
Subjective Remarks/Hospital Course 82-year-old male with past history of BPH, hyperlipidemia, PMR who is admitted to [facility] 12/01/17 with right upper quadrant abdominal pain and jaundice. LFTs were elevated in an obstructive pattern. CT demonstrated intrahepatic biliary duct dilatation. A mass was not clearly seen. 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 He underwent percutaneous biliary stent placement and drain by interventional radiology 12/03/17 (Dr. Hurtado). He was hypotensive post procedure and this was initially managed by family resource coordinator with 1.5 L fluid resuscitation and stress dose steroids, abx for possible biliary sepsis. Hypotension persisted and he was transferred to ICU with critical care medicine consult. When I went to evaluate the patient he appeared pale with cool skin concerning for hemorrhagic shock. CBC demonstrated leukocytosis 27.5 and hemoglobin was 9.4 from a baseline of 13. Place central line and art line, started neosynephrine, began transfusing blood products until appropriately stabilized for transition to CT scanner. CT scan demonstrated moderate hemoperitoneum with hemorrhage adjacent to the liver. The biliary drain was in good position. Called Dr. Montero who will take patient to OR for emergent laparotomy. agreeable to risks of surgery. Upon transition to OR he had received PRBC 7 units, 2 units FFP and 1 gram calcium chloride with 1 more unit of FFP, 1 unit platelets, 1 unit cryo ready to transfuse. 12/04/17: Status post exploratory laparotomy and control of liver laceration bleeding by Dr. montero, findinL hemoperitoneum, Capsular tear Segment of the liver. Remains on Chas-Synephrine at 50 mcg/m. Repeat lab work showed platelet count of 50 hemoglobin of 11.9. Platelet transfusion ordered. at the bedside 12/05/17: Tolerating CPAP, follows commands but tachycardic. White count increased to 52,000 biliary fluid with Jabari. I have increase Diflucan to 400 mg daily and consulted ID. Urine output minimal, no response to fluid bolus. Weight up by 10 kg, will attempt diuresis 12/06/17: Extubated yesterday. Breathing comfortably. Tachycardic up to 160s, white count remains high at 50,000, tachycardia most likely from SIRS response/ sepsis. Responded to beta thania. Urine output adequate with Lasix. 16 KG fluid up. Start scheduled Lasix 40 mg IV every 8 hours with IV albumin. Keep nothing by mouth until cleared by general surgery 12/07: Afebrile. Heart rate in the 120s. Off all vasopressors. Tolerating full liquid diet. Positive BM 1. Pain control. 12/08: Afebrile. Pulse less than 100. Tolerating full liquid diet. Positive BM. Pain is controlled. 12/09: Currently Tmax 99.3. Elevated WBC again today. Tachycardic with movement. Pleasantly confused but redirectable. CT brain pending. 12/10: Afebrile. Slightly downtrending WBC count. Agitated overnight. CT brain no acute findings. Ammonia level slightly elevated at 43. Less tachycardic on scheduled metoprolol. Subjective 12/11: Afebrile. Tolerating oral diet. Biliary drain with 825 output overnight. ANI with minimal output 25 cc.. Requesting glass of water Objective Vital Signs Date Time Temp Pulse Resp B/P (MAP) Pulse Ox O2 Delivery O2 Flow Rate FiO2 12/11/17 06:00 104 12/11/17 04:00 98.0 20 158/101 (120) 97 12/11/17 04:00 Nasal Cannula 2.00 12/08/17 07:00 40 Intake and Output 12/11/17 12/11/17 12/12/17 08:00 16:00 00:00 Intake Total 1380 ml Output Total 1075 ml Balance 305 ml Result Diagram: 12/11/17 0417 12/11/17 0417 Other Results Microbiology Date/Time Source Procedure Growth Status 12/10/17 05:46 Blood Peripheral Aerobic Blood Culture Pending Received 12/10/17 05:46 Blood Peripheral Anaerobic Blood Culture Pending Received 12/04/17 00:42 Fluid Bile Fluid Gram Stain - Final Complete 12/04/17 00:42 Body Fluid Culture - Final Jabari Albicans Complete 12/01/17 06:30 Urine Clean Catch Urine Culture - Final Staphylococcus Epidermidis Complete Imaging Last Impressions Head CT 12/09/17 0000 Signed Impressions: Service Date/Time: Saturday, December 09, 2017 20:02 - CONCLUSION: Negative noncontrast head CT. Landry Ryan MD Chest X-Ray 12/07/17 0600 Signed Impressions: Service Date/Time: Thursday, December 07, 2017 04:09 - CONCLUSION: No significant change. Persistent left pleural effusion and left lower lobe atelectasis versus consolidation. Jerry Laureano MD Abdomen X-Ray [id number]/03/171807 Signed Impressions: Service Date/Time: Sunday, December 03, 2017 18:15 - CONCLUSION: Nonspecific abdomen. Luz Jean MD Bile Duct Drainage 12/03/17 0000 Signed Impressions: Service Date/Time: Sunday, December 03, 2017 14:10 - CONCLUSION: Uncomplicated biliary stent placement as above. Bj Hurtado MD Abdomen/Pelvis CT 12/03/17 0000 Signed Impressions: Service Date/Time: December 02:42 - CONCLUSION: 1. Moderate volume hemoperitoneum. 2. Interval placement of a right internal/external biliary drainage catheter. This is in good position. Jung Lundberg Jr., MD Cholangiopancreatography MRI 12/02/17 0000 Signed Impressions: Service Date/Time: Saturday, December 02, 2017 08:17 - CONCLUSION: 1. Significant dilatation of the intrahepatic ducts ending at the confluence and possibility of stricture at this site or a Klatskin's tumor which is not visualized should be entertained. 2. Wedge-shaped focal fat right hepatic lobe. Luz Jean MD Abdomen Ultrasound 12/01/17 0000 Signed Impressions: Service Date/Time: Friday, December 01, 2017 11:49 - CONCLUSION: 1. Intrahepatic biliary duct dilatation better seen on the CT examination. A lesion at the biliary duct confluence/common hepatic duct region still needs to be suspected. An ERCP or MRCP could be used to further evaluate this region. 2. Suspected area of focal hepatic steatosis at the anterior segment right lobe of the liver. 3. Gallstones Landry Zarate MD Objective Remarks GENERAL: Pale appearing male, on nasal cannula. In no acute distress SKIN: Cool to touch. Positive jaundice HEAD: Atraumatic. Normocephalic. EYES: Pupils equal and round about 3 mm bilaterally and reactive. Pallor+ positive scleral icterus ENT: No nasal bleeding or discharge. Mucous membranes moist and pink. Oropharynx without erythema NECK: Trachea midline. CARDIOVASCULAR: Tachycardic, RR. S1, S2. No S4. Without murmur RESPIRATORY: Diminished breath sounds throughout. No wheezing rales or rhonchi. GASTROINTESTINAL: Biliary and peritoneal drain in place. Peroneal drain with serosanguineous output-25 mL in 24 hours. Biliary drain 820 cc MUSCULOSKELETAL: Extremities without difficulty and peripheral edema. NEUROLOGICAL: Alert awake oriented 3. No focal deficits. Cranial nerves II through XII grossly intact. Strength is equal symmetric. Normal sensation. Date of Insertion: Dec 03, 2017 Date of Removal: Dec 10, 2017 Line: Central Venous Catheter Location: Internal, Jugular A/P Assessment and Plan NEURO/PSYCH: Insomnia Currently on hydrocodone/acetaminophen 5-10/325 one tablet every 4 hours when necessary pain 1-10 Melatonin 5 mg at night as needed. He received temazepam 7.5 mg tablets 11 overnight 12/06 CT brain 12/19 revealed no acute intracranial findings As needed haloperidol 2 mill grams IV every 4 hours when necessary agitation RESP: Acute respiratory failure resolved History of tobacco use Extubated 12/05/17, tolerating well respiratory grullon. Nasal cannula to maintain saturations greater than equal to 92% currently 2 L Incentive spirometry while awake Albuterol/ipratropium aerosols every 6 hours scheduled and when necessary albuterol aerosols every 2 hours dyspnea Aggressive pulmonary toilet EzPAP and Acapella scheduled every 6 hours incentive spirometry every hour while awake CV: Hemorrhagic shock-resolved Sinus tachycardia/SIRS Stress dose steroids as per below with discontinuation 12/10 Status post multiple blood and blood product transfusion as below Written for as needed metoprolol. 2.5 mg every 6 hours as needed for heart rate greater than 120. Family practice changed 5 mg IV every 6 hours scheduled GI: Gastroesophageal reflux disease Intrahepatic biliary obstruction status post biliary stent and drain 12/03/16 ( Dr. Hurtado) Jabari cholangitis Stage liver laceration Hyperammonia Liver laceration with hemoperitoneum Full liquid diet. Advance per general surgery s/p OR ex lap with Dr. Montero, 12/04 and control of bleeding from liver capsular laceration with Surgicel and packing GI following for biliary obstruction ? 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 Patient is on omeprazole 20 mg daily at home Docusate sodium/senna 1 tablet twice a day for bowel regimen. Having bowel movements. Added lactulose for elevated ammonia FEN/RENAL: BPH Hypernatremia Hypophosphatemia Continue finasteride 5 mg daily Carmona to be maintained while on diuretics. Monitor intake and output. Replace electrolytes per ICU protocol ID: Severe sepsis Jabari cholangitis Staph epi UTI s/p biliary stent, jabari albicans in biliary culture 12/04 Urine cultures positive for pansensitive staph epi 12/01 Blood cultures 12/03 no growth. On piperacillin/tazobactam, and fluconazole 400 daily ID consulted- Dr. Gill Pertinent cultures jabari albicans in biliary culture 12/04 Urine cultures positive for pansensitive staph epi 12/01 Blood cultures 12/03 no growth. Repeat blood cultures 2 today HEME: Normocytic anemia Thrombocytopenia Leukocytosis Transfused 7 units packed red cells, 3 units FFP, 1 unit cryo on 12/03 - 12/04 Serial CBC. Replace as clinically indicated follow trends ENDO: Hypothyroidism Chronic prednisone 5 mg daily for rheumatoid arthritis Continue Synthroid 112 g - 100 micrograms daily. TSH 0.2. Normal free T4. Hydrocortisone weaning currently 25 mg every 12 hours. Stop date 12/10 PROPH: SCDs for DVT prophylaxis. Holding enoxaparin due to acute hemorrhage. Pantoprazole 40 mg IV 24 ACCESS: Right IJ central venous line placed 12/03/17 - 12/10. Left femoral art line placed 12/03/17 --12/07 Level II follow-up Gerard Hernandez MD Dec 11, 2017 07:46
[2017-12-11] MEDS: CHLORHEXIDINE 0.12% (ORAL KIT) 15 ML CUP MT SCH ×2 (08:00→20:00)
[2017-12-11] MEDS: PANTOPRAZOLE SODIUM 40 MG VIAL IV PUSH SCH (08:20)
[2017-12-11] MEDS: FINASTERIDE 5 MG TAB PO SCH (08:20)
[2017-12-11] MEDS: predniSONE 5 MG TAB PO SCH (08:20)
[2017-12-11] MEDS: LACTULOSE SYRUP 20 GM/30 ML CUP PO SCH (08:20)
[2017-12-11] MEDS: DOCUSATE SODIUM 50 MG/SENNA 8.6 MG TAB PO SCH ×2 (09:00→21:39)
[2017-12-11] MEDS: SODIUM CHLORIDE 0.9% FLUSH 10 ML FLUSH IV FLUSH SCH ×2 (09:00→21:00)
[2017-12-11] MEDS ORDERED: POTASSIUM PHOSPHATE INJ 30 MMOL in SODIUM CHLOR 0.9% 250 ML INJ 250 ML IV ONE (09:00)
--- NOTE | 2017-12-11 11:11 | HHI.PR ---
Subjective Subjective Notes still confused, denies pain, less agitated per RN Objective Vitals/I&O Vital Signs Date Time Temp Pulse Resp B/P (MAP) Pulse Ox O2 Delivery O2 Flow Rate FiO2 12/11/17 08:55 96 Nasal Cannula 2.00 12/11/17 06:00 104 12/11/17 04:00 98.0 20 158/101 (120) 12/08/17 07:00 40 Labs Laboratory Tests Test 12/11/17 04:17 White Blood Count 42.6 Red Blood Count 3.49 Hemoglobin 9.9 Hematocrit 31.4 Mean Corpuscular Volume 90.1 Mean Corpuscular Hemoglobin 28.4 Mean Corpuscular Hemoglobin Concent 31.6 Red Cell Distribution Width 16.5 Platelet Count 181 Mean Platelet Volume 9.6 CBC Comment AUTO DIFF Differential Total Cells Counted 100 Neutrophils % (Manual) 94 Band Neutrophils % 1 Neutrophils # (Manual) 42.6 Metamyelocytes 5 Differential Comment FINAL DIFF MANUAL Platelet Estimate NORMAL Platelet Morphology Comment NORMAL Stomatocytes 2+ Blood Urea Nitrogen 23 Creatinine 0.87 Random Glucose 92 Total Protein 5.7 Albumin 2.3 Calcium Level 9.5 Phosphorus Level 2.4 Magnesium Level 2.5 Alkaline Phosphatase 166 Aspartate Amino Transf (AST/SGOT) 54 Alanine Aminotransferase (ALT/SGPT) 64 Total Bilirubin 5.4 Sodium Level 147 Potassium Level 3.8 Chloride Level 109 Carbon Dioxide Level 34.7 Anion Gap 3 Estimat Glomerular Filtration Rate 84 Ammonia 19 Date/Time Source Procedure Growth Status 12/10/17 05:46 Blood Peripheral Aerobic Blood Culture Pending Received 12/10/17 05:46 Blood Peripheral Anaerobic Blood Culture Pending Received 12/04/17 00:42 Fluid Bile Fluid Gram Stain - Final Complete 12/04/17 00:42 Body Fluid Culture - Final Marielle Albicans Complete 12/01/17 06:30 Urine Clean Catch Urine Culture - Final Staphylococcus Epidermidis Complete Radiology Last Impressions Chest X-Ray 12/06/17 0000 Signed Impressions: Service Date/Time: Wednesday, December 06, 2017 07:38 - CONCLUSION: 1. Small left pleural effusion. 2. Cardiomegaly. 3. No acute focal pulmonary infiltrate or pulmonary vascular congestion. Allen Tony MD Abdomen X-Ray [id number]/03/[id number] Signed Impressions: Service Date/Time: Sunday, December 03, 2017 18:15 - CONCLUSION: Nonspecific abdomen. Luz Jean MD Bile Duct Drainage 12/03/17 0000 Signed Impressions: Service Date/Time: Sunday, December 03, 2017 14:10 - CONCLUSION: Uncomplicated biliary stent placement as above. Bj Hurtado MD Abdomen/Pelvis CT 12/03/17 0000 Signed Impressions: Service Date/Time: December 02:42 - CONCLUSION: 1. Moderate volume hemoperitoneum. 2. Interval placement of a right internal/external biliary drainage catheter. This is in good position. Jung Lundberg Jr., MD Cholangiopancreatography MRI 12/02/17 0000 Signed Impressions: Service Date/Time: Saturday, December 02, 2017 08:17 - CONCLUSION: 1. Significant dilatation of the intrahepatic ducts ending at the confluence and possibility of stricture at this site or a Klatskin's tumor which is not visualized should be entertained. 2. Wedge-shaped focal fat right hepatic lobe. Luz Jean MD Abdomen Ultrasound 12/01/17 0000 Signed Impressions: Service Date/Time: Friday, December 01, 2017 11:49 - CONCLUSION: 1. Intrahepatic biliary duct dilatation better seen on the CT examination. A lesion at the biliary duct confluence/common hepatic duct region still needs to be suspected. An ERCP or MRCP could be used to further evaluate this region. 2. Suspected area of focal hepatic steatosis at the anterior segment right lobe of the liver. 3. Gallstones Landry Zarate MD Abdomen: Post-op tenderness, BS normal Wound Wound : Wound Location: Abdomen Appearance: Clean & Dry A/P Assessment and Plan 82 year old male POD7 ex lap for liver laceration -Advance diet -WBC increased again today; afebrile - steroids? line sepsis? cholangitis? 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 AGREE WITH KEEPING IN ISC. DC DRAIN . H/H STABLE MENTAL STATUS WORK UP PENDING. AGREE WITH LEAVING HIM IN ISC, HIGH RISK DUE TO MENTAL STATUS/AGITATION Chance Guevara MD, FACS, MD Dec 11, 2017 11:11
--- NOTE | 2017-12-11 12:25 | HHI.FPPN ---
Subjective Remarks Mr Rios had no acute events overnight. Nursing reported transient tachycardia with possible arrhythmia to the 150-170 range; however, EKG revealed it to be mostly artifact. Pt is, however, tachycardic in the 100-115 range He is still a little confused upon waking per nursing and his . His feels like he is a little less confused today. His is concerned about his decreased PO intake; however, he misses his [employer] sausage and egg biscuit and his [employer] jamocha milkshake. Denies CP, SOB, N/V/D and DVT pain. (Pascual Valero MD R1) Objective Vitals Vital Signs Date Time Temp Pulse Resp B/P (MAP) Pulse Ox O2 Delivery O2 Flow Rate FiO2 12/11/17 10:00 107 12/11/17 08:55 96 Nasal Cannula 2.00 12/11/17 08:00 104 12/11/17 08:00 97.8 104 27 130/61 (84) 97 12/11/17 07:00 99 Nasal Cannula 2.00 12/11/17 06:00 104 12/11/17 04:00 98.0 104 20 158/101 (120) 97 12/11/17 04:00 97 Nasal Cannula 2.00 12/11/17 04:00 104 12/11/17 02:00 88 12/11/17 00:00 98.1 92 14 130/76 (94) 95 12/11/17 00:00 92 12/10/17 22:00 86 12/10/17 21:32 98 Nasal Cannula 2.00 12/10/17 20:16 98 Nasal Cannula 2.00 12/10/17 20:00 98.2 86 18 128/68 (88) 98 12/10/17 20:00 86 12/10/17 19:00 98 Nasal Cannula 2.00 12/10/17 18:00 79 12/10/17 16:00 99 12/10/17 16:00 98.2 99 26 139/80 (99) 98 12/10/17 14:00 95 12/10/17 13:35 20 I/O 12/10/17 12/10/17 12/10/17 12/11/17 12/11/17 12/11/17 07:00 15:00 23:00 07:00 15:00 23:00 Intake Total 780 ml 50 ml 850 ml 1380 ml Output Total 1035 ml 950 ml 1075 ml Balance -255 ml 50 ml -100 ml 305 ml Intake Oral 480 ml 600 ml 1280 ml IV Total 300 ml 50 ml 250 ml 100 ml Output Urine Total 800 ml 625 ml 550 ml Drainage Total 235 ml 325 ml 525 ml # Bowel Movements 0 1 0 (Pascual Valero MD R1) Result Diagram: 12/11/1741612/11/17416 Objective Remarks GENERAL: Well-nourished, well-developed patient in NAD lying in bed. SKIN: Warm and dry. No rashes or lesions. HEAD: Normocephalic. Atraumatic. EYES: No scleral icterus. No injection or drainage. EOMI. NECK: Supple, trachea midline. No JVD or lymphadenopathy. CARDIOVASCULAR: Tachycardia in the 100-115 range with regular rhythm without murmur, gallop, or rub. RESPIRATORY: Inspiratory wheeze noted best in left lung ferguson. No accessory muscle use. No increased WOB. GASTROINTESTINAL: Abdomen soft, non-tender, nondistended. Normal BS. : donis in place draining dark jeannine urine. EXTREMITIES: No cyanosis, or edema. Scant hair on BLEs. SCDs in place. NEUROLOGICAL: Awake, alert, and oriented x 3. Non-focal. Non-confused on interview. Procedures 12/04/17 - Exploratory laparotomy, liver laceration repair 12/03/17 - Biliary drainage Medications and IVs Current Medications Medications (Trade) Dose Ordered Sig/Rafa Route Start Time Stop Time Status Last Admin (NS Flush) 2 ml UNSCH PRN IV FLUSH 12/01/17 11:00 (NS Flush) 2 ml BID IV FLUSH 12/01/17 21:00 12/10/17 20:41 (Zofran Inj) 4 mg Q6H PRN IVP 12/01/17 11:00 12/09/17 00:50 ([place] 5-325 Mg) 1 tab Q4H PRN PO 12/01/17 11:00 ([place] 10-325 Mg) 1 tab Q4H PRN PO 12/01/17 11:00 12/11/17 04:42 (Narcan Inj) 0.4 mg UNSCH PRN IV PUSH 12/01/17 11:00 (Deedee-Colace) 1 tab BID PO 12/01/17 21:00 12/10/17 20:40 (Milk Of Magnesia Liq) 30 ml Q12H PRN PO 12/01/17 11:00 12/09/17 05:20 (Senokot) 17.2 mg Q12H PRN PO 12/01/17 11:00 (Dulcolax Supp) 10 mg DAILY PRN RECTAL 12/01/17 11:00 (Lactulose Liq) 30 ml DAILY PRN PO 12/01/17 11:00 (Proscar) 5 mg DAILY PO 12/02/17 09:00 Future hold 12/11/17 08:20 (Deltasone) 5 mg DAILY PO 12/02/17 09:00 Future hold 12/11/17 08:20 Piperacillin Sod/ Tazobactam Sod 50 ml @ 100 mls/hr Q6H IV 12/01/17 16:00 12/11/17 15:12 (Peridex 0.12% Liq) 15 ml BID@08,20 MT 12/04/17 08:00 12/08/17 20:00 Potassium Chloride 100 ml @ 50 mls/hr Q2H PRN IV 12/05/17 07:15 12/09/17 12:52 Potassium Chloride 100 ml @ 50 mls/hr Q2H PRN IV 12/05/17 07:15 (K-Lyte Cl Eff) 50 meq UNSCH PRN PO 12/05/17 07:15 12/10/17 15:45 Potassium Chloride 100 ml @ 25 mls/hr UNSCH PRN IV 12/05/17 07:15 Potassium Chloride 100 ml @ 50 mls/hr Q2H PRN IV 12/05/17 07:15 Magnesium Sulfate 4 gm/Sodium Chloride 100 ml @ 50 mls/hr UNSCH PRN IV 12/05/17 07:15 (Mag-Ox) 800 mg UNSCH PRN PO 12/05/17 07:15 Magnesium Sulfate 2 gm/Sodium Chloride 100 ml @ 50 mls/hr UNSCH PRN IV 12/05/17 07:15 (K-Phos) 2,000 mg Q4H PRN PO 12/05/17 07:15 12/09/17 12:32 Sodium Phosphate 30 mmol/Sodium Chloride 250 ml @ 42 mls/hr UNSCH PRN IV 12/05/17 07:15 (K-Phos) 2,000 mg UNSCH PRN PO/TUBE 12/05/17 07:15 Potassium Phosphate 30 mmol/ Sodium Chloride 260 ml @ 42 mls/hr UNSCH PRN IV 12/05/17 07:15 12/08/17 14:24 Fluconazole/ Sodium Chloride 200 ml @ 100 mls/hr Q24H IV 12/06/17 17:00 12/10/17 15:46 (Albuterol Neb) 2.5 mg Q2HR NEB PRN NEB 12/05/17 22:00 (Synthroid) 100 mcg DAILY@0600 PO 12/08/17 06:00 12/11/17 04:19 (Melatonin) 5 mg HS PRN PO 12/07/17 21:00 12/08/17 23:44 (Tylenol) 500 mg Q6H PRN PO 12/08/17 08:30 (Duoneb Neb) 1 ampule Q6HR NEB NEB 12/09/17 16:00 12/11/17 08:53 (Protonix Inj) 40 mg DAILY IV PUSH 12/10/17 09:00 12/11/17 08:20 (Lactulose Liq) 30 ml DAILY PO 12/11/17 09:00 12/11/17 08:20 (Lopressor) 25 mg Q8H PO 12/11/17 16:00 (Pascual Valero MD R1) Urinary Catheter: Yes Donis insert reason: Obstruction/Retention (Pascual Valero MD R1) Date of Insertion: Dec 03, 2017 Date of Removal: Dec 10, 2017 Line: Central Venous Catheter Location: Internal, Jugular (Pascual Valero MD R1) A/P Assessment and Plan 82 yo male with h/o PMR, BPH, hyperlipidemia presenting with RUQ pain and UTI and 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 Following IR biliary stent and drainage on 12/03, pt found to have liver laceration and hemorrhage causing hemoperitoneum. Exploratory laparotomy performed emergently on 12/04 requiring 6u PRBCs, 1u FFP and 1u Cryo with EBL 2L. Following surgery pt was sent to ICU for management and has since had improvement but still with persistently elevated WBC. 12/11: Pt improved today with a little less confusion, usually upon waking. Pt has decreased PO intake, but pt and his indicate he does not like the food here. States he doesn't like Boost or Ensure, but will drink an [employer] jamocha milkshake. Have updated diet to include that if pt will take it. Still investigating persistent leukocytosis, possibly 2/2 his biliary disease. Nursing called about transient tachycardia to 150s-170s with possible arrhythmia on tele this morning. ECG found tele reading to be artifact, but pt does have tachycardia in 100-115 range w/o arrhythmia and RBBB. Switched from IV metoprolol to PO and will continue to watch. Dr Hernandez has concurred w/ transfer to floor; will defer to surgery on that transfer for now. Believe pt will improve if moved to floor and allowed to get OOB with assistance/PT as well as reestablish daily routine. Discharge Planning Anticipate discharge once patient is clinically stable, time frame unclear. (Pascual Valero MD R1) Attending Attestation Patient seen and examined. Case reviewed and discussed with the resident team. Agree with plan of care as discussed with me and documented in the resident note. reviewed his tele and he has no arrhythmia. it was artifact. hope he can be transferred out of [facility] soon (La Wood MD) Problem List: (1) Liver hemorrhage ICD Codes: K76.89 - Other specified diseases of liver Status: Acute Plan: From procedure for dilated duct in liver, s/p surgery on the to repair the liver and to stop bleeding. Stable now. Drain removed 1/10 Encourage OOB activity, OT consulted [place] for pain, pain could be underlying reason for tachycardic episodes. Appreciate assistance and recommendations from Dr Montero and Intensivists (2) Abdominal pain ICD Codes: R10.9 - Unspecified abdominal pain Status: Acute Plan: Stable [place] as needed for pain CT findings as below MRCP findings as below Significant leukocytosis on admission initially improved with Zosyn, increased post-operatively above 50k, CCM explained that this presentation manifests as a result of hemorrhagic shock and stress his body underwent. Differential including malignancy, choledocholithiasis, cholecystitis, kidney stone, UTI - Currently in ICU - care coordinated with GI, surgery, ICU, and FM Med team A. GI has signed off. - Zosyn 3.375 Q6H IV to cover UTI, abdominal pathogens initially, will continue for duration of surgical drainage and consider d/c at that time - Fluconazole added by [facility] for Marielle albicans in body fluid culture - PO Abx transition when WBC trends downward per ID - Advance diet to softs - f/u outpatient pending GI diagnostic impression/imaging - still needs to determine the presence of tumor vs not CT of the abdomen and pelvis: 12/04/17: Moderate volume hemoperitoneum. Interval placement of a right internal/ external earlier a drainage catheter. Drain good position. MRCP: 12/02/17: Significant dilation of the intrahepatic ducts ending in the confluence and possibility of stricture at the site or a lack since tumor which is not visualized should be entertained. Wedge-shaped focal fat right hepatic lobe (3) Tachycardia with heart rate 100-120 beats per minute ICD Codes: R00.0 - Tachycardia, unspecified Plan: Tachycardia in 100-115 range; on Metoprolol tartrate 25mg q85 -Monitor vitals (4) Leukocytosis ICD Codes: D72.829 - Elevated white blood cell count, unspecified Status: Acute Plan: very high WBCs discussed with [facility] and WBCs up to the 50s can occur with intraabdominal processes, large blood transfusions and infections. He has been found to have a candidal infection. Have been weaning him down on his steroids which could also be pushing up his WBC. -Coverage with Zosyn as above as well as fluconazole -ID consulted appreciate recs - transition to PO Abx when WBC improves per ID. (5) Polymyalgia rheumatica ICD Codes: M35.3 - Polymyalgia rheumatica Status: Chronic Plan: Pain stable, was on 5 mg of prednisone which is enough to suppress his adrenals. Continue prednisone 5 mg daily He is currently on a hydrocortisone 25 mg taper (6) BPH (benign prostatic hyperplasia) ICD Codes: N40.0 - Benign prostatic hyperplasia without lower urinary tract symptoms Status: Chronic Plan: Symptoms currently well controlled, continue home finasteride (7) Hypothyroidism ICD Codes: E03.9 - Hypothyroidism, unspecified Status: Chronic Plan: Continue home Synthroid for now; TSH 0.199 (8) FEN/PPX Plan: Fluids: per surgery and [facility] Electrolytes: Monitor and replace PRN, should be on ICU protocol. will give some po K as he is being diuresed and can take pills now Nutrition: Diet regular basic once able to start eating again DVT: We'll hold off on chemotherapy prophylaxis due to recent bleed (Pascual Valero MD R1) Problem Qualifiers (1) Abdominal pain: Qualified Codes: R10.11 - Right upper quadrant pain (2) Leukocytosis: Qualified Codes: D72.829 - Elevated white blood cell count, unspecified (3) BPH (benign prostatic hyperplasia): Qualified Codes: N40.0 - Benign prostatic hyperplasia without lower urinary tract symptoms (4) Hypothyroidism: Qualified Codes: E03.9 - Hypothyroidism, unspecified Pascual Valero MD R1 Dec 11, 2017 12:25 La Wood MD Dec 16, 2017 13:40
[2017-12-11] MEDS: FLUCONAZOLE 400 MG PREMIX BAG 200 ML IV SCH (17:55)
[2017-12-11] MEDS: METOPROLOL TARTRATE 25 MG TAB PO SCH (17:56)
--- NOTE | 2017-12-11 19:00 | HHI.IDPN ---
Subjective Subjective Remarks WBC up again into 42 K! afebrile + some abd pain Antibiotics zosyn fluconazol Past Medical History Allergies: Coded Allergies: No Known Allergies (Unverified Allergy, Unknown, 12/01/17) Objective . Vital Signs Date Time Temp Pulse Resp B/P (MAP) Pulse Ox O2 Delivery O2 Flow Rate FiO2 12/11/17 10:00 107 12/11/17 08:55 96 Nasal Cannula 2.00 12/11/17 08:00 104 12/11/17 08:00 97.8 104 27 130/61 (84) 97 12/11/17 07:00 99 Nasal Cannula 2.00 12/11/17 06:00 104 12/11/17 04:00 98.0 104 20 158/101 (120) 97 12/11/17 04:00 97 Nasal Cannula 2.00 12/11/17 04:00 104 12/11/17 02:00 88 12/11/17 00:00 98.1 92 14 130/76 (94) 95 12/11/17 00:00 92 12/10/17 22:00 86 12/10/17 21:32 98 Nasal Cannula 2.00 12/10/17 20:16 98 Nasal Cannula 2.00 12/10/17 20:00 98.2 86 18 128/68 (88) 98 12/10/17 20:00 86 12/10/17 19:00 98 Nasal Cannula 2.00 . Laboratory Tests Test 12/10/17 05:40 12/11/17 04:17 White Blood Count 38.4 TH/MM3 42.6 TH/MM3 Red Blood Count 2.95 MIL/MM3 3.49 MIL/MM3 Hemoglobin 8.8 GM/DL 9.9 GM/DL Hematocrit 26.6 % 31.4 % Mean Corpuscular Volume 90.2 FL 90.1 FL Mean Corpuscular Hemoglobin 29.7 PG 28.4 PG Mean Corpuscular Hemoglobin Concent 32.9 % 31.6 % Red Cell Distribution Width 16.7 % 16.5 % Platelet Count 161 TH/MM3 181 TH/MM3 Mean Platelet Volume 9.8 FL 9.6 FL Neutrophils (%) (Auto) 93.8 % Lymphocytes (%) (Auto) 1.3 % Monocytes (%) (Auto) 4.8 % Eosinophils (%) (Auto) 0.0 % Basophils (%) (Auto) 0.1 % Neutrophils # (Auto) 36.0 TH/MM3 Lymphocytes # (Auto) 0.5 TH/MM3 Monocytes # (Auto) 1.8 TH/MM3 Eosinophils # (Auto) 0.0 TH/MM3 Basophils # (Auto) 0.0 TH/MM3 CBC Comment AUTO DIFF AUTO DIFF Differential Total Cells Counted 100 100 Neutrophils % (Manual) 93 % 94 % Band Neutrophils % 5 % 1 % Monocytes % 2 % Neutrophils # (Manual) 37.6 TH/MM3 42.6 TH/MM3 Differential Comment FINAL DIFF MANUAL FINAL DIFF MANUAL Platelet Estimate NORMAL NORMAL Platelet Morphology Comment NORMAL NORMAL Basophilic Stippling FAINT Target Cells 1+ Metamyelocytes 5 % Stomatocytes 2+ Laboratory Tests Test 12/10/17 05:40 12/11/17 04:17 Blood Urea Nitrogen 22 MG/DL 23 MG/DL Creatinine 0.90 MG/DL 0.87 MG/DL Random Glucose 150 MG/DL 92 MG/DL Total Protein 5.1 GM/DL 5.7 GM/DL Albumin 2.2 GM/DL 2.3 GM/DL Calcium Level 8.9 MG/DL 9.5 MG/DL Phosphorus Level 2.8 MG/DL 2.4 MG/DL Magnesium Level 2.4 MG/DL 2.5 MG/DL Alkaline Phosphatase 131 U/L 166 U/L Aspartate Amino Transf (AST/SGOT) 48 U/L 54 U/L Alanine Aminotransferase (ALT/SGPT) 51 U/L 64 U/L Total Bilirubin 5.7 MG/DL 5.4 MG/DL Sodium Level 149 MEQ/L 147 MEQ/L Potassium Level 3.5 MEQ/L 3.8 MEQ/L Chloride Level 109 MEQ/L 109 MEQ/L Carbon Dioxide Level 32.5 MEQ/L 34.7 MEQ/L Anion Gap 8 MEQ/L 3 MEQ/L Estimat Glomerular Filtration Rate 81 ML/MIN 84 ML/MIN Ammonia 19 MCMOL/L Microbiology Date/Time Source Procedure Growth Status 12/10/17 05:46 Blood Peripheral Aerobic Blood Culture - Preliminary NO GROWTH IN 1 DAY Resulted 12/10/17 05:46 Blood Peripheral Anaerobic Blood Culture - Preliminary NO GROWTH IN 1 DAY Resulted 12/10/17 05:40 Blood Peripheral Aerobic Blood Culture - Preliminary NO GROWTH IN 1 DAY Resulted 12/10/17 05:40 Blood Peripheral Anaerobic Blood Culture - Preliminary NO GROWTH IN 1 DAY Resulted Imaging Last Impressions Head CT 12/09/17 0000 Signed Impressions: Service Date/Time: Saturday, December 09, 2017 20:02 - CONCLUSION: Negative noncontrast head CT. Landry Ryan MD Chest X-Ray 12/07/17 0600 Signed Impressions: Service Date/Time: Thursday, December 07, 2017 04:09 - CONCLUSION: No significant change. Persistent left pleural effusion and left lower lobe atelectasis versus consolidation. Jerry Laureano MD Abdomen X-Ray 12/03/17 1808 Signed Impressions: Service Date/Time: Sunday, December 03, 2017 18:15 - CONCLUSION: Nonspecific abdomen. Luz Jean MD Bile Duct Drainage 12/03/17 0000 Signed Impressions: Service Date/Time: Sunday, December 03, 2017 14:10 - CONCLUSION: Uncomplicated biliary stent placement as above. Bj Hurtado MD Abdomen/Pelvis CT 12/03/17 0000 Signed Impressions: Service Date/Time: December 02:42 - CONCLUSION: 1. Moderate volume hemoperitoneum. 2. Interval placement of a right internal/external biliary drainage catheter. This is in good position. Jung Lundberg Jr., MD Cholangiopancreatography MRI 12/02/17 0000 Signed Impressions: Service Date/Time: Saturday, December 02, 2017 08:17 - CONCLUSION: 1. Significant dilatation of the intrahepatic ducts ending at the confluence and possibility of stricture at this site or a Klatskin's tumor which is not visualized should be entertained. 2. Wedge-shaped focal fat right hepatic lobe. Luz Jean MD Abdomen Ultrasound 12/01/17 0000 Signed Impressions: Service Date/Time: Friday, December 01, 2017 11:49 - CONCLUSION: 1. Intrahepatic biliary duct dilatation better seen on the CT examination. A lesion at the biliary duct confluence/common hepatic duct region still needs to be suspected. An ERCP or MRCP could be used to further evaluate this region. 2. Suspected area of focal hepatic steatosis at the anterior segment right lobe of the liver. 3. Gallstones Landry Zarate MD Physical Exam CONSTITUTIONAL/GENERAL: This is an adequately nourished patient, in no apparent distress. TUBES/LINES/DRAINS: SKIN: + mild jaundice, rashes, or lesions. Skin temperature appropriate. Not diaphoretic. CARDIOVASCULAR: Regular rate and rhythm without murmurs, gallops, or rubs. No JVD. Peripheral pulses symmetric. RESPIRATORY/CHEST: Symmetric, unlabored respirations. Clear to auscultation. Breath sounds equal bilaterally. No wheezes, rales, or rhonchi. GASTROINTESTINAL: Abdomen soft with some tenderness to palpation and is less distended. Biliary drain in place with brown bile Drain d/c'd, minimal drainage at previous drain site No hepato-splenomegaly, or palpable masses. No guarding. Bowel sounds present. GENITOURINARY: Without palpable bladder distension. Carmona catheter in place with scarce amout of dark cloudy urine MUSCULOSKELETAL: Extremities without clubbing, cyanosis, Less edema. No joint tenderness or effusion noted. No calf tenderness. No mottling or clubbing. LYMPHATICS: No palpable cervical or supraclavicular adenopathy. NEUROLOGICAL: Fully awake and alert, follwing commands PSYCHIATRIC: calm and cooperative Assessment & Plan Remarks Acute hypovolemic shock following bleeding 2/2 complicaion of biliary stent placement sp emergent surgery - shock cliniocally resolved Obstructive jaundiced, ethiology not yet established sp biliary stent placement candidal cholangitis Sepsis Leukocytosis, leukemoid reaction - improving initilaly ; worse again Acute VDRF - resolved ARF- resolved Pt significant ly improved clinically Staph epi bacteriuria - doubt clin significance - not a trypical urinary pathogen cont zosyn cont fluconazole @ 400 mg IV anticipate transition to oral Augmentin, fluconazol pending further WBC improvement will not switch to oral abx now when pt has substantial leukemoid reaction agree with re CT dw Brigette Licea MD Dec 11, 2017 18:59
[2017-12-11] MEDS ORDERED: DIATRIZOATE MEGLUM/DIATRIZOATE SOD 9 ML CUP PO ONE (20:45)
[2017-12-12] VITALS (17 sets, daily range): BP systolic 89–145; BP diastolic 53–75; PULSE 84–113; RESP 14–27; TEMP 98.1–99.1; O2SAT 94–99
[2017-12-12] MEDS ORDERED: IOHEXOL 350 MG/ML 10 ML VIAL (for RAD DIAG) IVCONTRAST ONE (00:15)
--- NOTE | 2017-12-12 00:42 | RADRPT ---
EXAM DATE/TIME: 12/11/2017 23:42 [facility] COMPARISON: CT ABDOMEN & PELVIS W CONTRAST, December 04, 2017, 2:42. INDICATIONS : Elevated white blood cell count, recent hemoperitoneum. IV CONTRAST: 75 cc Omnipaque 350 (iohexol) IV ORAL CONTRAST: Patient refused oral contrast. RADIATION DOSE: 16.96 CTDIvol (mGy) MEDICAL HISTORY : Cardiovascular disease. Renal calculi. SURGICAL HISTORY : Biliary stent placement. Laparotomy. ENCOUNTER: Subsequent ACUITY: 1 week PAIN SCALE: Non-responsive LOCATION: Abdomen. TECHNIQUE: Volumetric scanning of the abdomen and pelvis was performed. Using automated exposure control and ad justment of the mA and/or kV according to patient size, radiation dose was kept as low as reasonably achievable to obtain optimal diagnostic quality images. DICOM format image data is available electro nically for review and comparison. FINDINGS: LOWER LUNGS: Small bilateral effusions with compressive atelectasis. LIVER: There is an internal/external biliary catheter in place and unchanged in position. The previously not ed fluid adjacent to the liver has essentially resolved. No dilated biliary ducts. There is some foca l fatty infiltration the right lobe of the liver. No significant dilatation of the biliary tree. SPLEEN: Normal size without lesion. PANCREAS: There is diffuse inflammatory changes surrounding the entire pancreas characteristics of pancreatitis . There is a small amount of fluid in the left paracolic gutter associated with the pancreatitis. KIDNEYS: Normal in size and shape. There is no mass, stone or hydronephrosis. ADRENAL GLANDS: Within normal limits. VASCULAR: There is no aortic aneurysm. BOWEL/MESENTERY: The stomach, small bowel, and colon demonstrate no acute abnormality. There is no free intraperitone al air. There is a free fluid deep in the pelvis. ABDOMINAL WALL: Within normal limits. There is some edema in the subcutaneous soft tissues. RETROPERITONEUM: There is no lymphadenopathy. BLADDER: Carmona catheter in the bladder. REPRODUCTIVE: Within normal limits. INGUINAL: There is no lymphadenopathy or hernia. MUSCULOSKELETAL: Within normal limits for patient age. CONCLUSION: 1. There has been interval development of diffuse pancreatitis. There is diffuse inflammatory changes surrounding the pancreas. 2. The previously noted fluid adjacent to the liver has resolved. 3. There is an internal/external biliary drainage catheter in place which appears to be in good posit ion and unchanged in position compared to the prior study. 4. There is a small amount of free fluid deep in the pelvis. 5. Small bilateral pleural effusions. Nathen Ruano MD on December 12, 2017 at 0:34 Board Certified Radiologist. This report was verified electronically.
[2017-12-12] MEDS: METOPROLOL TARTRATE 25 MG TAB PO SCH ×3 (00:53→16:00)
[2017-12-12] MEDS: PIPERACIL-TAZO 3.375 GM PREMIX 50 ML IV SCH ×4 (03:09→21:18)
[2017-12-12] MEDS: RESP: ALBUTEROL 2.5 MG/IPRATROPIUM 0.5 MG NEB (SCH) NEB ×6 (03:25→23:04)
[2017-12-12] MEDS: LEVOTHYROXINE SODIUM 100 MCG TAB PO SCH (05:48)
[2017-12-12 06:08] LABS: AUTOMATED NEUTROPHIL # 39.6 TH/MM3 (1.8-7.7); BASOPHIL # 0.1 TH/MM3 (0-0.2); BASOPHIL % 0.2 % (0.0-2.0); EOSINOPHIL # 0.1 TH/MM3 (0-0.4); EOSINOPHIL % 0.3 % (0.0-4.0); HEMATOCRIT 28.1 % (39.0-51.0); HEMOGLOBIN 9.1 GM/DL (13.0-17.0); LYMPH % 2.8 % (9.0-44.0); LYMPHOCYTE # 1.3 TH/MM3 (1.0-4.8); MEAN CELL VOLUME 90.2 FL (80.0-100.0); MEAN CORPUSCULAR HEMOGLOBIN 29.1 PG (27.0-34.0); MEAN CORPUSCULAR HGB CONC 32.2 % (32.0-36.0); MEAN PLATELET VOLUME 9.3 FL (7.0-11.0); MONO % 10.4 % (0.0-8.0); MONOCYTE # 4.8 TH/MM3 (0-0.9); NEUT % 86.3 % (16.0-70.0); PLATELET COUNT 170 TH/MM3 (150-450); RED BLOOD COUNT 3.12 MIL/MM3 (4.50-5.90); RED CELL DISTRIBUTION WIDTH 16.8 % (11.6-17.2); WHITE BLOOD COUNT 45.9 TH/MM3 (4.0-11.0)
[2017-12-12 06:47] LABS: ALKALINE PHOSPHATASE 148 U/L (45-117); ALT (GPT) 50 U/L (12-78); PHOSPHORUS 2.5 MG/DL (2.5-4.9); TOTAL BILIRUBIN ADULT 6.2 MG/DL (0.2-1.0)
[2017-12-12 07:01] LABS: ALBUMIN 1.9 GM/DL (3.4-5.0); AST (GOT) 62 U/L (15-37); CALCIUM 9.2 MG/DL (8.5-10.1); CHLORIDE 105 MEQ/L (98-107); CREATININE 0.97 MG/DL (0.60-1.30); GLOMERULAR FILTRATION RATE 74 ML/MIN (>89); GLUCOSE,RANDOM 73 MG/DL (74-106); MAGNESIUM 2.2 MG/DL (1.5-2.5); SODIUM (NA) 143 MEQ/L (136-145)
[2017-12-12 07:21] LABS: BLOOD UREA NITROGEN 19 MG/DL (7-18)
[2017-12-12 07:22] LABS: AMYLASE 38 U/L (25-115); LIPASE 132 U/L (73-393)
[2017-12-12] MEDS: CHLORHEXIDINE 0.12% (ORAL KIT) 15 ML CUP MT SCH ×2 (08:00→20:00)
[2017-12-12] MEDS: FINASTERIDE 5 MG TAB PO SCH (08:44)
[2017-12-12] MEDS: predniSONE 5 MG TAB PO SCH (08:44)
[2017-12-12] MEDS: DOCUSATE SODIUM 50 MG/SENNA 8.6 MG TAB PO SCH ×2 (08:44→21:17)
[2017-12-12] MEDS: LACTULOSE SYRUP 20 GM/30 ML CUP PO SCH (08:44)
[2017-12-12] MEDS: SODIUM CHLORIDE 0.9% FLUSH 10 ML FLUSH IV FLUSH SCH ×2 (08:45→21:17)
[2017-12-12] MEDS: PANTOPRAZOLE SODIUM 40 MG VIAL IV PUSH SCH (09:00)
[2017-12-12 09:09] LABS: BANDS 3 % (0-6); LYMPHOCYTES 6 % (9-44); MONOCYTES 11 % (0-8); MYELOCYTES 2 % (0-0); NEUTROPHIL # MANUAL DIFF 38.1 TH/MM3 (1.8-7.7); POLYS (SEG NEUTROPHILS) 78 % (16-70)
[2017-12-12 09:10] LABS: POLYCHROMASIA 2.4 % (0.0-1.9)
--- NOTE | 2017-12-12 09:32 | HHI.FPPN ---
Subjective Remarks Mr. Rios had a difficult night last night. mentioned that he was having visual hallucinations and that he didn't sleep well. His right arm was restrained at bedside to prevent him from pulling out his tubing and IVs. Mr. Rios was having some respiratory distress with increased WOB with wheezing and tachypnea and coughed up copious phlegm previously. Mr. Rios expressed frustration with getting blood drawn and how it was uncomfortable. He was still confused but more oriented than yesterday. He knew where he was and what year it was but continued to express wishes to be helped out of bed. He continues to have decreased PO intake and did not complain of any pain other than when you "press down really hard on his belly". Discussion with surgery at the bedside resulted in him being transferred out of the unit to a Step-down unit that will enable him to have PT and OOB activity that will help him stay oriented and ultimately get better. Denies CP, SOB, n/v/d, and DVT pain. (Eko,Lorin U R2) Objective Vitals Vital Signs Date Time Temp Pulse Resp B/P (MAP) Pulse Ox O2 Delivery O2 Flow Rate FiO2 12/12/17 07:00 95 Nasal Cannula 4.00 40 12/12/17 06:00 108 12/12/17 04:00 104 12/12/17 04:00 99.1 104 23 140/65 (90) 96 12/12/17 02:00 90 12/12/17 00:00 98.9 108 25 145/75 (98) 99 12/12/17 00:00 108 12/11/17 22:00 106 12/11/17 20:10 97 Nasal Cannula 2.00 12/11/17 20:00 110 12/11/17 20:00 99.3 110 27 121/76 (91) 94 12/11/17 19:00 94 Nasal Cannula 4.00 12/11/17 18:00 110 12/11/17 16:00 98.0 106 14 102/58 (73) 95 12/11/17 16:00 106 12/11/17 14:00 118 12/11/17 12:00 106 12/11/17 12:00 98.1 106 17 151/80 (103) 94 12/11/17 10:00 107 I/O 112/11/17 12/11/17 12/12/17 12/12/17 12/12/17 07:00 15:00 23:00 07:00 15:00 23:00 Intake Total 1380 ml 720 ml 500 ml Output Total 1075 ml 1350 ml 925 ml Balance 305 ml -630 ml -425 ml Intake Oral 1280 ml 720 ml 500 ml IV Total 100 ml Output Urine Total 550 ml 700 ml 925 ml Drainage Total 525 ml 650 ml 0 ml # Bowel Movements 0 0 0 (Eko,Lorin Rogers MD R2) Result Diagram: 12/12/17 0539 12/12/17 0539 Other Results Laboratory Tests Test 12/12/17 05:39 White Blood Count 45.9 TH/MM3 (4.0-11.0) Red Blood Count 3.12 MIL/MM3 (4.50-5.90) Hemoglobin 9.1 GM/DL (13.0-17.0) Hematocrit 28.1 % (39.0-51.0) Mean Corpuscular Volume 90.2 FL (80.0-100.0) Mean Corpuscular Hemoglobin 29.1 PG (27.0-34.0) Mean Corpuscular Hemoglobin Concent 32.2 % (32.0-36.0) Red Cell Distribution Width 16.8 % (11.6-17.2) Platelet Count 170 TH/MM3 (150-450) Mean Platelet Volume 9.3 FL (7.0-11.0) Neutrophils (%) (Auto) 86.3 % (16.0-70.0) Lymphocytes (%) (Auto) 2.8 % (9.0-44.0) Monocytes (%) (Auto) 10.4 % (0.0-8.0) Eosinophils (%) (Auto) 0.3 % (0.0-4.0) Basophils (%) (Auto) 0.2 % (0.0-2.0) Neutrophils # (Auto) 39.6 TH/MM3 (1.8-7.7) Lymphocytes # (Auto) 1.3 TH/MM3 (1.0-4.8) Monocytes # (Auto) 4.8 TH/MM3 (0-0.9) Eosinophils # (Auto) 0.1 TH/MM3 (0-0.4) Basophils # (Auto) 0.1 TH/MM3 (0-0.2) CBC Comment AUTO DIFF Differential Total Cells Counted 100 Neutrophils % (Manual) 78 % (16-70) Band Neutrophils % 3 % (0-6) Lymphocytes % 6 % (9-44) Monocytes % 11 % (0-8) Neutrophils # (Manual) 38.1 TH/MM3 (1.8-7.7) Myelocytes 2 % (0-0) Differential Comment FINAL DIFF MANUAL Platelet Estimate NORMAL (NORMAL) Platelet Morphology Comment NORMAL (NORMAL) Polychromasia 2.4 % (0.0-1.9) Basophilic Stippling FAINT (NORMAL) Blood Smear Pathologist Review Blood Urea Nitrogen 19 MG/DL (7-18) Creatinine 0.97 MG/DL (0.60-1.30) Random Glucose 73 MG/DL (74-106) Total Protein 5.0 GM/DL (6.4-8.2) Albumin 1.9 GM/DL (3.4-5.0) Calcium Level 9.2 MG/DL (8.5-10.1) Phosphorus Level 2.5 MG/DL (2.5-4.9) Magnesium Level 2.2 MG/DL (1.5-2.5) Alkaline Phosphatase 148 U/L (45-117) Aspartate Amino Transf (AST/SGOT) 62 U/L (15-37) Alanine Aminotransferase (ALT/SGPT) 50 U/L (12-78) Total Bilirubin 6.2 MG/DL (0.2-1.0) Sodium Level 143 MEQ/L (136-145) Potassium Level 4.1 MEQ/L (3.5-5.1) Chloride Level 105 MEQ/L (98-107) Carbon Dioxide Level 32.0 MEQ/L (21.0-32.0) Anion Gap 6 MEQ/L (5-15) Estimat Glomerular Filtration Rate 74 ML/MIN (>89) Amylase Level 38 U/L (25-115) Lipase 132 U/L (73-393) Imaging Last Impressions Abdomen/Pelvis CT 12/11/17 0000 Signed Impressions: Service Date/Time: December 23:42 - CONCLUSION: 1. There has been interval development of diffuse pancreatitis. There is diffuse inflammatory changes surrounding the pancreas. 2. The previously noted fluid adjacent to the liver has resolved. 3. There is an internal/external biliary drainage catheter in place which appears to be in good position and unchanged in position compared to the prior study. 4. There is a small amount of free fluid deep in the pelvis. 5. Small bilateral pleural effusions. Nathen Ruano MD Head CT 12/09/17 0000 Signed Impressions: Service Date/Time: Saturday, December 09, 2017 20:02 - CONCLUSION: Negative noncontrast head CT. Landry Ryan MD Chest X-Ray 12/07/17 0600 Signed Impressions: Service Date/Time: Thursday, December 07, 2017 04:09 - CONCLUSION: No significant change. Persistent left pleural effusion and left lower lobe atelectasis versus consolidation. Jerry Laureano MD Abdomen X-Ray 12/03/17 1808 Signed Impressions: Service Date/Time: Sunday, December 03, 2017 18:15 - CONCLUSION: Nonspecific abdomen. Luz Jean MD Bile Duct Drainage 12/03/17 0000 Signed Impressions: Service Date/Time: Sunday, December 03, 2017 14:10 - CONCLUSION: Uncomplicated biliary stent placement as above. Bj Hurtado MD Cholangiopancreatography MRI 12/02/17 0000 Signed Impressions: Service Date/Time: Saturday, December 02, 2017 08:17 - CONCLUSION: 1. Significant dilatation of the intrahepatic ducts ending at the confluence and possibility of stricture at this site or a Klatskin's tumor which is not visualized should be entertained. 2. Wedge-shaped focal fat right hepatic lobe. Luz Jean MD Abdomen Ultrasound 12/01/17 0000 Signed Impressions: Service Date/Time: Friday, December 01, 2017 11:49 - CONCLUSION: 1. Intrahepatic biliary duct dilatation better seen on the CT examination. A lesion at the biliary duct confluence/common hepatic duct region still needs to be suspected. An ERCP or MRCP could be used to further evaluate this region. 2. Suspected area of focal hepatic steatosis at the anterior segment right lobe of the liver. 3. Gallstones Landry Zarate MD Objective Remarks GENERAL: Well-nourished, well-developed patient, breathily heavily through his mouth, mildly distressed. SKIN: Warm and dry. No rashes or lesions. HEAD: Normocephalic. Atraumatic. EYES: No scleral icterus. No injection or drainage. EOMI. NECK: Supple, trachea midline. No JVD or lymphadenopathy. CARDIOVASCULAR: Tachycardia in the 100-115 range with regular rhythm without murmur, gallop, or rub. RESPIRATORY: Inspiratory and expiratory wheezes throughout all lung ferguson. + increased WOB. GASTROINTESTINAL: Abdomen soft, somewhat tender on R side with deep palpation, nondistended. Normal BS. : donis in place draining dark jeannine urine. EXTREMITIES: No cyanosis. Edema noted on his bilateral hands. Scant hair on BLEs. SCDs in place. NEUROLOGICAL: Awake, alert, and oriented x 3. Non-focal. Confused in interview - had difficulty with remembering words or how to say certain words. Procedures 12/04/17 - Exploratory laparotomy, liver laceration repair 12/03/17 - Biliary drainage Medications and IVs Current Medications Medications (Trade) Dose Ordered Sig/Rafa Route PRN Reason Start Time Stop Time Status Last Admin Dose Admin Sodium Chloride (NS Flush) 2 ml UNSCH PRN IV FLUSH FLUSH AFTER USING IV ACCESS 12/01/17 11:00 Sodium Chloride (NS Flush) 2 ml BID IV FLUSH 12/01/17 21:00 12/12/17 08:45 Ondansetron HCl (Zofran Inj) 4 mg Q6H PRN IVP NAUSEA OR VOMITING 12/01/17 11:00 12/09/17 00:50 Acetaminophen/ Hydrocodone Bitart ([place] 5-325 Mg) 1 tab Q4H PRN PO PAIN SCALE 3 TO 5 12/01/17 11:00 Acetaminophen/ Hydrocodone Bitart ([place] 10-325 Mg) 1 tab Q4H PRN PO PAIN SCALE 6 TO 10 12/01/17 11:00 12/11/17 04:42 Naloxone HCl (Narcan Inj) 0.4 mg UNSCH PRN IV PUSH SEE LABEL COMMENTS 12/01/17 11:00 Senna/Docusate Sodium ([place]-Colace) 1 tab BID PO 12/01/17 21:00 12/12/17 08:44 Magnesium Hydroxide (Milk Of Magnesia Liq) 30 ml Q12H PRN PO Mild constipation 12/01/17 11:00 12/09/17 05:20 Sennosides (Senokot) 17.2 mg Q12H PRN PO Moderate constipation 12/01/17 11:00 Bisacodyl (Dulcolax Supp) 10 mg DAILY PRN RECTAL SEVERE CONSITIPATION 12/01/17 11:00 Lactulose (Lactulose Liq) 30 ml DAILY PRN PO SEVERE CONSITIPATION 12/01/17 11:00 Finasteride (Proscar) 5 mg DAILY PO 12/02/17 09:00 Future hold 12/12/17 08:44 Prednisone (Deltasone) 5 mg DAILY PO 12/02/17 09:00 Future hold 12/12/17 08:44 Piperacillin Sod/ Tazobactam Sod 50 ml @ 100 mls/hr Q6H IV 12/01/17 16:00 12/12/17 09:10 Chlorhexidine Gluconate (Peridex 0.12% Liq) 15 ml BID@08,20 MT 12/04/17 08:00 12/08/17 20:00 Potassium Chloride 100 ml @ 50 mls/hr Q2H PRN IV For Potassium 2.8 - 3.2 mEq/L 12/05/17 07:15 12/09/17 12:52 Potassium Chloride 100 ml @ 50 mls/hr Q2H PRN IV For Potassium 2.8 - 3.2 mEq/L 12/05/17 07:15 Potassium Bicarb/ Potassium Chloride (K-Lyte Cl Eff) 50 meq UNSCH PRN PO For Potassium 3.3 - 3.5 mEq/L 12/05/17 07:15 12/10/17 15:45 Potassium Chloride 100 ml @ 25 mls/hr UNSCH PRN IV For Potassium 3.3 - 3.5 mEq/L 12/05/17 07:15 Potassium Chloride 100 ml @ 50 mls/hr Q2H PRN IV For Potassium 3.3 - 3.5 mEq/L 12/05/17 07:15 Magnesium Sulfate 4 gm/Sodium Chloride 100 ml @ 50 mls/hr UNSCH PRN IV For Magnesium 0.9 - 1.1 mg/dL 12/05/17 07:15 Magnesium Oxide (Mag-Ox) 800 mg UNSCH PRN PO For Magnesium 1.2 - 1.6 mg/dL 12/05/17 07:15 Magnesium Sulfate 2 gm/Sodium Chloride 100 ml @ 50 mls/hr UNSCH PRN IV For Magnesium 1.2 - 1.6 mg/dL 12/05/17 07:15 Potassium Phosphate (K-Phos) 2,000 mg Q4H PRN PO For Phosphorus < 2.5 mg/dL 12/05/17 07:15 12/09/17 12:32 Sodium Phosphate 30 mmol/Sodium Chloride 250 ml @ 42 mls/hr UNSCH PRN IV For Phosphorus < 2.5 mg/dL 12/05/17 07:15 Potassium Phosphate (K-Phos) 2,000 mg UNSCH PRN PO/TUBE SEE LABEL COMMENTS 12/05/17 07:15 Potassium Phosphate 30 mmol/ Sodium Chloride 260 ml @ 42 mls/hr UNSCH PRN IV SEE LABEL COMMENTS 12/05/17 07:15 12/08/17 14:24 Fluconazole/ Sodium Chloride 200 ml @ 100 mls/hr Q24H IV 12/06/17 17:00 12/11/17 17:55 Albuterol Sulfate (Albuterol Neb) 2.5 mg Q2HR NEB PRN NEB dyspnea 12/05/17 22:00 Levothyroxine Sodium (Synthroid) 100 mcg DAILY@0600 PO 12/08/17 06:00 12/12/17 05:48 Melatonin (Melatonin) 5 mg HS PRN PO insomnia 12/07/17 21:00 12/08/17 23:44 Acetaminophen (Tylenol) 500 mg Q6H PRN PO pain 12/08/17 08:30 Pantoprazole Sodium (Protonix Inj) 40 mg DAILY IV PUSH 12/10/17 09:00 12/12/17 09:00 Lactulose (Lactulose Liq) 30 ml DAILY PO 12/11/17 09:00 12/11/17 08:20 Metoprolol Tartrate (Lopressor) 25 mg Q8H PO 12/11/17 16:00 12/12/17 08:45 Albuterol/ Ipratropium (Duoneb Neb) 1 ampule Q4HR NEB NEB 12/12/17 09:30 12/12/17 10:03 Enoxaparin Sodium (Lovenox Inj) 40 mg Q24H SQ 12/12/17 10:00 Budesonide (Pulmicort Respule Neb) 0.5 mg Q12HR NEB NEB 12/12/17 09:45 (Lorin Pollock MD R2) Urinary Catheter: Yes (Lorin Pollock MD R2) Date of Insertion: Dec 03, 2017 Date of Removal: Dec 10, 2017 (Lorin Pollock MD R2) A/P Assessment and Plan 82 yo male with h/o PMR, BPH, hyperlipidemia presenting with RUQ pain and UTI and 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 Following IR biliary stent and drainage on 12/03, pt found to have liver laceration and hemorrhage causing hemoperitoneum. Exploratory laparotomy performed emergently on 12/04 requiring 6u PRBCs, 1u FFP and 1u Cryo with EBL 2L. Following surgery, pt was sent to ICU for management and has since had improvement but still with persistently elevated WBC. He was found to have pancreatitis on CT scan but lipase and amylase are not elevated and patient does not have abdominal pain. Discharge Planning Anticipate discharge once patient is clinically stable, time frame unclear. (Lorin Pollock MD R2) Attending Attestation Patient seen and examined. Case reviewed and discussed with the resident team. Agree with plan of care as discussed with me and documented in the resident note. agree with restarting anticoagulation. his high WBC is a little puzzling as it still is high despite treatment of infection plus weaning off steroids (La Wood MD) Problem List: (1) Liver hemorrhage ICD Codes: K76.89 - Other specified diseases of liver Status: Acute Plan: POD8 ex lap for liver laceration Drain removed 12/10 Encourage OOB activity, OT consulted, move to step-down unit for PT, request bed near the nursing station [place] for pain, pain could be underlying reason for tachycardic episodes - Pancreatitis developed as a result from the drainage per surgery. will need IR for permanent drain/stent solution so as to allow pancreas to heal Appreciate assistance and recommendations from Dr Montero and Intensivists (2) Abdominal pain ICD Codes: R10.9 - Unspecified abdominal pain Status: Acute Plan: Stable [place] as needed for pain CT findings as below MRCP findings as below Significant leukocytosis on admission initially improved with Zosyn, increased post-operatively above 50k, CCM explained that this presentation manifests as a result of hemorrhagic shock and stress his body underwent. Differential including malignancy, choledocholithiasis, cholecystitis, kidney stone, UTI - Currently in ICU - care coordinated with GI, surgery, ICU, and Med team A. GI has signed off. After discussion with surgery, decision for moving to step- down warranted to promote OOB activity and patient is stable hemodynamically. - Zosyn 3.375 Q6H IV to cover UTI, abdominal pathogens initially, will continue for duration of surgical drainage and consider d/c at that time - Fluconazole added by [facility] for Marielle albicans in body fluid culture - PO Abx transition when WBC trends downward per ID - Advance diet to softs - f/u outpatient pending GI diagnostic impression/imaging - still needs to determine the presence of tumor vs not. Once diagnosis is determined, surgical options can be considered. CT of the abdomen and pelvis: 12/04/17: Moderate volume hemoperitoneum. Interval placement of a right internal/external earlier a drainage catheter. Drain good position. CT of the abdomen and pelvis: 12/11/17: 1. Interval development of diffuse pancreatitis. Diffuse inflammatory changes surrounding the pancreas. 2. Previously noted fluid adjacent to the liver has resolved. 3. Internal/external biliary drainage catheter in place which appears to be in good position and unchanged in position compared to the prior study. 4. Small amount of free fluid deep in the pelvis. 5. Small bilateral pleural effusions. MRCP: 12/02/17: Significant dilation of the intrahepatic ducts ending in the confluence and possibility of stricture at the site or a lack since tumor which is not visualized should be entertained. Wedge-shaped focal fat right hepatic lobe (3) Tachycardia with heart rate 100-120 beats per minute ICD Codes: R00.0 - Tachycardia, unspecified Plan: Tachycardia in 100-115 range; on Metoprolol tartrate 25mg q85 -Monitor vitals (4) Leukocytosis ICD Codes: D72.829 - Elevated white blood cell count, unspecified Status: Acute Plan: Very high WBCs discussed with Photography Coordinator and WBCs up to the 50s can occur with intraabdominal processes, large blood transfusions and infections. He was found to have a candidal infection. -Coverage with Zosyn as above as well as fluconazole -ID consulted appreciate recs -Transition to PO Abx when WBC improves per ID (5) Polymyalgia rheumatica ICD Codes: M35.3 - Polymyalgia rheumatica Status: Chronic Plan: Continue prednisone 5 mg daily (6) BPH (benign prostatic hyperplasia) ICD Codes: N40.0 - Benign prostatic hyperplasia without lower urinary tract symptoms Status: Chronic Plan: Symptoms currently well controlled, continue home finasteride (7) Hypothyroidism ICD Codes: E03.9 - Hypothyroidism, unspecified Status: Chronic Plan: Continue home Synthroid for now; TSH 0.199 (8) FEN/PPX Plan: Fluids: per surgery and Photography Coordinator Electrolytes: Monitor and replace PRN Nutrition: Diet regular basic - patient does not have much appetite for food DVT: Lovenox 40 mg subcutaneous daily (Lorin Pollock MD R2) Problem Qualifiers (1) Abdominal pain: Qualified Codes: R10.11 - Right upper quadrant pain (2) Leukocytosis: Qualified Codes: D72.829 - Elevated white blood cell count, unspecified (3) BPH (benign prostatic hyperplasia): Qualified Codes: N40.0 - Benign prostatic hyperplasia without lower urinary tract symptoms (4) Hypothyroidism: Qualified Codes: E03.9 - Hypothyroidism, unspecified Lorin Pollock MD R2 Dec 12, 2017 09:32 La Wood MD Dec 16, 2017 13:42
--- NOTE | 2017-12-12 09:41 | HHI.PR ---
Subjective Subjective Notes feels fine, wants to get oob, denies abdominal pain, is more oriented today Objective Vitals/I&O Vital Signs Date Time Temp Pulse Resp B/P (MAP) Pulse Ox O2 Delivery O2 Flow Rate FiO2 12/12/17 08:00 108 12/12/17 07:00 95 Nasal Cannula 4.00 40 12/12/17 04:00 99.1 23 140/65 (90) Labs Laboratory Tests Test 12/12/17 05:39 White Blood Count 45.9 Red Blood Count 3.12 Hemoglobin 9.1 Hematocrit 28.1 Mean Corpuscular Volume 90.2 Mean Corpuscular Hemoglobin 29.1 Mean Corpuscular Hemoglobin Concent 32.2 Red Cell Distribution Width 16.8 Platelet Count 170 Mean Platelet Volume 9.3 Neutrophils (%) (Auto) 86.3 Lymphocytes (%) (Auto) 2.8 Monocytes (%) (Auto) 10.4 Eosinophils (%) (Auto) 0.3 Basophils (%) (Auto) 0.2 Neutrophils # (Auto) 39.6 Lymphocytes # (Auto) 1.3 Monocytes # (Auto) 4.8 Eosinophils # (Auto) 0.1 Basophils # (Auto) 0.1 CBC Comment AUTO DIFF Differential Total Cells Counted 100 Neutrophils % (Manual) 78 Band Neutrophils % 3 Lymphocytes % 6 Monocytes % 11 Neutrophils # (Manual) 38.1 Myelocytes 2 Differential Comment FINAL DIFF MANUAL Platelet Estimate NORMAL Platelet Morphology Comment NORMAL Polychromasia 2.4 Basophilic Stippling FAINT Blood Urea Nitrogen 19 Creatinine 0.97 Random Glucose 73 Total Protein 5.0 Albumin 1.9 Calcium Level 9.2 Phosphorus Level 2.5 Magnesium Level 2.2 Alkaline Phosphatase 148 Aspartate Amino Transf (AST/SGOT) 62 Alanine Aminotransferase (ALT/SGPT) 50 Total Bilirubin 6.2 Sodium Level 143 Potassium Level 4.1 Chloride Level 105 Carbon Dioxide Level 32.0 Anion Gap 6 Estimat Glomerular Filtration Rate 74 Amylase Level 38 Lipase 132 Date/Time Source Procedure Growth Status 12/10/17 05:46 Blood Peripheral Aerobic Blood Culture - Preliminary NO GROWTH IN 1 DAY Resulted 12/10/17 05:46 Blood Peripheral Anaerobic Blood Culture - Preliminary NO GROWTH IN 1 DAY Resulted 12/04/17 00:42 Fluid Bile Fluid Gram Stain - Final Complete 12/04/17 00:42 Body Fluid Culture - Final Marielle Albicans Complete 12/01/17 06:30 Urine Clean Catch Urine Culture - Final Staphylococcus Epidermidis Complete Radiology Last Impressions Chest X-Ray 12/06/17 0000 Signed Impressions: Service Date/Time: Wednesday, December 06, 2017 07:38 - CONCLUSION: 1. Small left pleural effusion. 2. Cardiomegaly. 3. No acute focal pulmonary infiltrate or pulmonary vascular congestion. Allen Tony MD Abdomen X-Ray [id number] Signed Impressions: Service Date/Time: Sunday, December 03, 2017 18:15 - CONCLUSION: Nonspecific abdomen. Luz Jean MD Bile Duct Drainage 12/03/17 0000 Signed Impressions: Service Date/Time: Sunday, December 03, 2017 14:10 - CONCLUSION: Uncomplicated biliary stent placement as above. Bj Hurtado MD Abdomen/Pelvis CT 12/03/17 0000 Signed Impressions: Service Date/Time: December 02:42 - CONCLUSION: 1. Moderate volume hemoperitoneum. 2. Interval placement of a right internal/external biliary drainage catheter. This is in good position. Jung Lundberg Jr., MD Cholangiopancreatography MRI 12/02/17 0000 Signed Impressions: Service Date/Time: Saturday, December 02, 2017 08:17 - CONCLUSION: 1. Significant dilatation of the intrahepatic ducts ending at the confluence and possibility of stricture at this site or a Klatskin's tumor which is not visualized should be entertained. 2. Wedge-shaped focal fat right hepatic lobe. Luz Jean MD Abdomen Ultrasound 12/01/17 0000 Signed Impressions: Service Date/Time: Friday, December 01, 2017 11:49 - CONCLUSION: 1. Intrahepatic biliary duct dilatation better seen on the CT examination. A lesion at the biliary duct confluence/common hepatic duct region still needs to be suspected. An ERCP or MRCP could be used to further evaluate this region. 2. Suspected area of focal hepatic steatosis at the anterior segment right lobe of the liver. 3. Gallstones Landry Zarate MD Abdomen: Non-distended, Non-tender, BS normal Wound Wound : Wound Location: Abdomen Appearance: Clean & Dry A/P Assessment and Plan 82 year old male POD8 ex lap for liver laceration -Advance diet -WBC increased again today; afebrile - steroids? line sepsis? cholangitis? 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 RANDY tobias. Please call him if there are any surgical concerns. I will check back next week. SEEN ON ROUNDS WITH RN ANTE PARTUM WHO DOCUMENTED OUR VISIT. AGREE WITH KEEPING IN ISC. DC DRAIN . H/H STABLE MENTAL STATUS WORK UP PENDING. AGREE WITH LEAVING HIM IN ISC, HIGH RISK DUE TO MENTAL STATUS/AGITATION Chance Guevara MD, FACS, MD Dec 12, 2017 09:41
[2017-12-12] MEDS: RESP: BUDESONIDE 0.5 MG/2 ML NEB NEB SCH ×2 (09:45→20:21)
[2017-12-12] MEDS: ENOXAPARIN SODIUM 40 MG/0.4 ML SYRINGE SQ SCH (10:28)
[2017-12-12] MEDS ORDERED: HALOPERIDOL LACTATE 5 MG/ML AMP IV PUSH ONE (10:45)
--- NOTE | 2017-12-12 11:38 | HHI.CCPN ---
Subjective Remarks/Hospital Course 82-year-old male with past history of BPH, hyperlipidemia, PMR who is admitted to [facility] 12/01/17 with right upper quadrant abdominal pain and jaundice. LFTs were elevated in an obstructive pattern. CT demonstrated intrahepatic biliary duct dilatation. A mass was not clearly seen. 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 He underwent percutaneous biliary stent placement and drain by interventional radiology 12/03/17 (Dr. Hurtado). He was hypotensive post procedure and this was initially managed by family practice nurse practitioner with 1.5 L fluid resuscitation and stress dose steroids, abx for possible biliary sepsis. Hypotension persisted and he was transferred to ICU with critical care medicine consult. When I went to evaluate the patient he appeared pale with cool skin concerning for hemorrhagic shock. CBC demonstrated leukocytosis 27.5 and hemoglobin was 9.4 from a baseline of 13. Place central line and art line, started neosynephrine, began transfusing blood products until appropriately stabilized for transition to CT scanner. CT scan demonstrated moderate hemoperitoneum with hemorrhage adjacent to the liver. The biliary drain was in good position. Called Dr. Montero who will take patient to OR for emergent laparotomy. agreeable to risks of surgery. Upon transition to OR he had received PRBC 7 units, 2 units FFP and 1 gram calcium chloride with 1 more unit of FFP, 1 unit platelets, 1 unit cryo ready to transfuse. 12/04/17: Status post exploratory laparotomy and control of liver laceration bleeding by Dr. montero, findinL hemoperitoneum, Capsular tear Segment of the liver. Remains on Chas-Synephrine at 50 mcg/m. Repeat lab work showed platelet count of 50 hemoglobin of 11.9. Platelet transfusion ordered. at the bedside 12/05/17: Tolerating CPAP, follows commands but tachycardic. White count increased to 52,000 biliary fluid with Jabari. I have increase Diflucan to 400 mg daily and consulted ID. Urine output minimal, no response to fluid bolus. Weight up by 10 kg, will attempt diuresis 12/06/17: Extubated yesterday. Breathing comfortably. Tachycardic up to 160s, white count remains high at 50,000, tachycardia most likely from SIRS response/ sepsis. Responded to beta thania. Urine output adequate with Lasix. 16 KG fluid up. Start scheduled Lasix 40 mg IV every 8 hours with IV albumin. Keep nothing by mouth until cleared by general surgery 12/07: Afebrile. Heart rate in the 120s. Off all vasopressors. Tolerating full liquid diet. Positive BM 1. Pain control. 12/08: Afebrile. Pulse less than 100. Tolerating full liquid diet. Positive BM. Pain is controlled. 12/09: Currently Tmax 99.3. Elevated WBC again today. Tachycardic with movement. Pleasantly confused but redirectable. CT brain pending. 12/10: Afebrile. Slightly downtrending WBC count. Agitated overnight. CT brain no acute findings. Ammonia level slightly elevated at 43. Less tachycardic on scheduled metoprolol. 12/11: Afebrile. Tolerating oral diet. Biliary drain with 825 output overnight. ANI with minimal output 25 cc.. Requesting glass of water Subjective 12/12: Tmax 99.3. Currently 99.1. 6. A biliary drain overnight. CT revealed pancreatitis likely from biliary drain. No other focal evidence of discrete infection identified. Objective Vital Signs Date Time Temp Pulse Resp B/P (MAP) Pulse Ox O2 Delivery O2 Flow Rate FiO2 12/12/17 10:00 100 12/12/17 08:00 98.3 27 145/65 (91) 98 12/12/17 07:00 Nasal Cannula 4.00 40 Intake and Output 12/12/17 12/12/17 12/13/17 08:00 16:00 00:00 Intake Total 500 ml Output Total 925 ml Balance -425 ml Result Diagram: 12/12/17 0539 12/12/17 0539 Other Results Microbiology Date/Time Source Procedure Growth Status 12/10/17 05:46 Blood Peripheral Aerobic Blood Culture - Preliminary NO GROWTH IN 2 DAYS Resulted 12/10/17 05:46 Blood Peripheral Anaerobic Blood Culture - Preliminary NO GROWTH IN 2 DAYS Resulted 12/04/17 00:42 Fluid Bile Fluid Gram Stain - Final Complete 12/04/17 00:42 Body Fluid Culture - Final Jabari Albicans Complete 12/01/17 06:30 Urine Clean Catch Urine Culture - Final Staphylococcus Epidermidis Complete Imaging Last Impressions Abdomen/Pelvis CT 12/11/17 0000 Signed Impressions: Service Date/Time: December 23:42 - CONCLUSION: 1. There has been interval development of diffuse pancreatitis. There is diffuse inflammatory changes surrounding the pancreas. 2. The previously noted fluid adjacent to the liver has resolved. 3. There is an internal/external biliary drainage catheter in place which appears to be in good position and unchanged in position compared to the prior study. 4. There is a small amount of free fluid deep in the pelvis. 5. Small bilateral pleural effusions. Nathen Ruano MD Head CT 12/09/17 0000 Signed Impressions: Service Date/Time: Saturday, December 09, 2017 20:02 - CONCLUSION: Negative noncontrast head CT. Landry Ryna MD Chest X-Ray 12/07/17 0600 Signed Impressions: Service Date/Time: Thursday, December 07, 2017 04:09 - CONCLUSION: No significant change. Persistent left pleural effusion and left lower lobe atelectasis versus consolidation. Jerry Laureano MD Abdomen X-Ray 12/03/17 1808 Signed Impressions: Service Date/Time: Sunday, December 03, 2017 18:15 - CONCLUSION: Nonspecific abdomen. Luz Jean MD Bile Duct Drainage 12/03/17 0000 Signed Impressions: Service Date/Time: Sunday, December 03, 2017 14:10 - CONCLUSION: Uncomplicated biliary stent placement as above. Bj Hurtado MD Cholangiopancreatography MRI 12/02/17 0000 Signed Impressions: Service Date/Time: Saturday, December 02, 2017 08:17 - CONCLUSION: 1. Significant dilatation of the intrahepatic ducts ending at the confluence and possibility of stricture at this site or a Klatskin's tumor which is not visualized should be entertained. 2. Wedge-shaped focal fat right hepatic lobe. Luz Jean MD Abdomen Ultrasound 12/01/17 0000 Signed Impressions: Service Date/Time: Friday, December 01, 2017 11:49 - CONCLUSION: 1. Intrahepatic biliary duct dilatation better seen on the CT examination. A lesion at the biliary duct confluence/common hepatic duct region still needs to be suspected. An ERCP or MRCP could be used to further evaluate this region. 2. Suspected area of focal hepatic steatosis at the anterior segment right lobe of the liver. 3. Gallstones Landry Zarate MD Objective Remarks GENERAL: Pale appearing male, on nasal cannula. In no acute distress SKIN: Cool to touch. Positive jaundice HEAD: Atraumatic. Normocephalic. EYES: Pupils equal and round about 3 mm bilaterally and reactive. Pallor+ positive scleral icterus ENT: No nasal bleeding or discharge. Mucous membranes moist and pink. Oropharynx without erythema NECK: Trachea midline. CARDIOVASCULAR: Tachycardic, RR. S1, S2. No S4. Without murmur RESPIRATORY: Diminished breath sounds throughout. No wheezing rales or rhonchi. GASTROINTESTINAL: Biliary and peritoneal drain in place. Peroneal drain has been removed.. Biliary drain 625 cc. MUSCULOSKELETAL: Extremities without difficulty and peripheral edema. NEUROLOGICAL: Alert awake oriented 3. No focal deficits. Cranial nerves II through XII grossly intact. Strength is equal symmetric. Normal sensation. Date of Insertion: Dec 03, 2017 Date of Removal: Dec 10, 2017 A/P Assessment and Plan NEURO/PSYCH: Insomnia Currently on hydrocodone/acetaminophen 5-10/325 one tablet every 4 hours when necessary pain 1-10 Melatonin 5 mg at night as needed. He received temazepam 7.5 mg tablets 11 overnight 12/06 CT brain 12/19 revealed no acute intracranial findings As needed haloperidol 2 mill grams IV every 4 hours when necessary agitation RESP: Acute respiratory failure resolved History of tobacco use Extubated 12/05/17, tolerating well respiratory grullon. Nasal cannula to maintain saturations greater than equal to 92% currently 2 L Incentive spirometry while awake Albuterol/ipratropium aerosols every 6 hours scheduled and when necessary albuterol aerosols every 2 hours dyspnea Aggressive pulmonary toilet EzPAP and Acapella scheduled every 6 hours incentive spirometry every hour while awake CV: Hemorrhagic shock-resolved Sinus tachycardia/SIRS Stress dose steroids as per below with discontinuation 12/10 Status post multiple blood and blood product transfusion as below Written for as needed metoprolol. 2.5 mg every 6 hours as needed for heart rate greater than 120. Metoprolol 25 mg by mouth every 8 hours GI: Gastroesophageal reflux disease Intrahepatic biliary obstruction status post biliary stent and drain 12/03/16 ( Dr. Hurtado) Jabari cholangitis Stage liver laceration Hyperammonia Liver laceration with hemoperitoneum Full liquid diet. Advance per general surgery s/p OR ex lap with Dr. Montero, 12/04 and control of bleeding from liver capsular laceration with Surgicel and packing GI following for biliary obstruction ? Cholangiocarcinoma Elevated CA 19-9 85 Will need further workup for Klatskin tumor/cholangiocarcinoma with GI Once stable may need ERCP/Biopsy with GI Pantoprazole 40 mg IV daily for GI prophylaxis. Patient is on omeprazole 20 mg daily at home Docusate sodium/senna 1 tablet twice a day for bowel regimen. Having bowel movements. Added lactulose for elevated ammonia CT abdomen/pelvis 12/12 revealed pancreatitis. Resolution of hemoperitoneum. FEN/RENAL: BPH Continue finasteride 5 mg daily Carmona to be maintained while on diuretics. Monitor intake and output. Replace electrolytes per ICU protocol ID: Severe sepsis Jabari cholangitis Staph epi UTI s/p biliary stent, jabari albicans in biliary culture 12/04 Urine cultures positive for pansensitive staph epi 12/01 Blood cultures 12/03 no growth. On piperacillin/tazobactam, and fluconazole 400 daily ID consulted- Dr. Gill Pertinent cultures jabari albicans in biliary culture 12/04 Urine cultures positive for pansensitive staph epi 12/01 Blood cultures 12/03 no growth. Repeat blood cultures 2 today HEME: Normocytic anemia Thrombocytopenia Leukocytosis Transfused 7 units packed red cells, 3 units FFP, 1 unit cryo on 12/03 - 12/04 Serial CBC. Replace as clinically indicated follow trends ENDO: Hypothyroidism Chronic prednisone 5 mg daily for rheumatoid arthritis Continue Synthroid 112 g - 100 micrograms daily. TSH 0.2. Normal free T4. Hydrocortisone weaning currently 25 mg every 12 hours. Stop date 12/10 PROPH: SCDs for DVT prophylaxis. Enoxaparin 40 mg daily. Okayed By general surgery.. Pantoprazole 40 mg IV 24 ACCESS: Right IJ central venous line placed 12/03/17 - 12/10. Left femoral art line placed 12/03/17 --12/07 Level II follow-up. We'll sign off. Family medicine team to follow. Gerard Hernandez MD Dec 12, 2017 11:38
--- NOTE | 2017-12-12 13:56 | HHI.GIFU ---
Subjective Remarks patient is sleeping at bedside. Biliary drain intact, minimal OP this am Mild RUQ tenderness with palpation. low grade fever, 99.3 (Apoorva Quevedo) Objective Vitals I&O Vital Signs Date Time Temp Pulse Resp B/P (MAP) Pulse Ox O2 Delivery O2 Flow Rate FiO2 12/12/17 12:00 113 12/12/17 10:00 100 12/12/17 08:00 98.3 100 27 145/65 (91) 98 12/12/17 08:00 108 12/12/17 07:00 95 Nasal Cannula 4.00 40 12/12/17 06:00 108 12/12/17 04:00 104 12/12/17 04:00 99.1 104 23 140/65 (90) 96 12/12/17 02:00 90 12/12/17 00:00 98.9 108 25 145/75 (98) 99 12/12/17 00:00 108 12/11/17 22:00 106 12/11/17 20:10 97 Nasal Cannula 2.00 12/11/17 20:00 110 12/11/17 20:00 99.3 110 27 121/76 (91) 94 12/11/17 19:00 94 Nasal Cannula 4.00 12/11/17 18:00 110 12/11/17 16:00 98.0 106 14 102/58 (73) 95 12/11/17 16:00 106 12/11/17 14:00 118 I/O 12/11/17 12/11/17 12/11/17 12/12/17 12/12/17 12/12/17 07:00 15:00 23:00 07:00 15:00 23:00 Intake Total 1380 ml 720 ml 500 ml Output Total 1075 ml 1350 ml 925 ml Balance 305 ml -630 ml -425 ml Intake Oral 1280 ml 720 ml 500 ml IV Total 100 ml Output Urine Total 550 ml 700 ml 925 ml Drainage Total 525 ml 650 ml 0 ml # Bowel Movements 0 0 0 Laboratory Laboratory Tests Test 12/12/17 05:39 White Blood Count 45.9 Red Blood Count 3.12 Hemoglobin 9.1 Hematocrit 28.1 Mean Corpuscular Volume 90.2 Mean Corpuscular Hemoglobin 29.1 Mean Corpuscular Hemoglobin Concent 32.2 Red Cell Distribution Width 16.8 Platelet Count 170 Mean Platelet Volume 9.3 Neutrophils (%) (Auto) 86.3 Lymphocytes (%) (Auto) 2.8 Monocytes (%) (Auto) 10.4 Eosinophils (%) (Auto) 0.3 Basophils (%) (Auto) 0.2 Neutrophils # (Auto) 39.6 Lymphocytes # (Auto) 1.3 Monocytes # (Auto) 4.8 Eosinophils # (Auto) 0.1 Basophils # (Auto) 0.1 CBC Comment AUTO DIFF Differential Total Cells Counted 100 Neutrophils % (Manual) 78 Band Neutrophils % 3 Lymphocytes % 6 Monocytes % 11 Neutrophils # (Manual) 38.1 Myelocytes 2 Differential Comment FINAL DIFF MANUAL Platelet Estimate NORMAL Platelet Morphology Comment NORMAL Polychromasia 2.4 Basophilic Stippling FAINT Blood Smear Pathologist Review Blood Urea Nitrogen 19 Creatinine 0.97 Random Glucose 73 Total Protein 5.0 Albumin 1.9 Calcium Level 9.2 Phosphorus Level 2.5 Magnesium Level 2.2 Alkaline Phosphatase 148 Aspartate Amino Transf (AST/SGOT) 62 Alanine Aminotransferase (ALT/SGPT) 50 Total Bilirubin 6.2 Sodium Level 143 Potassium Level 4.1 Chloride Level 105 Carbon Dioxide Level 32.0 Anion Gap 6 Estimat Glomerular Filtration Rate 74 Amylase Level 38 Lipase 132 Date/Time Source Procedure Growth Status 12/10/17 05:46 Blood Peripheral Aerobic Blood Culture - Preliminary NO GROWTH IN 2 DAYS Resulted 12/10/17 05:46 Blood Peripheral Anaerobic Blood Culture - Preliminary NO GROWTH IN 2 DAYS Resulted 12/04/17 00:42 Fluid Bile Fluid Gram Stain - Final Complete 12/04/17 00:42 Body Fluid Culture - Final Marielle Albicans Complete 12/01/17 06:30 Urine Clean Catch Urine Culture - Final Staphylococcus Epidermidis Complete Imaging Last Impressions Abdomen/Pelvis CT 12/11/17 0000 Signed Impressions: Service Date/Time: December 23:42 - CONCLUSION: 1. There has been interval development of diffuse pancreatitis. There is diffuse inflammatory changes surrounding the pancreas. 2. The previously noted fluid adjacent to the liver has resolved. 3. There is an internal/external biliary drainage catheter in place which appears to be in good position and unchanged in position compared to the prior study. 4. There is a small amount of free fluid deep in the pelvis. 5. Small bilateral pleural effusions. Nathen Ruano MD Head CT 12/09/17 0000 Signed Impressions: Service Date/Time: Saturday, December 09, 2017 20:02 - CONCLUSION: Negative noncontrast head CT. Landry Ryan MD Chest X-Ray 12/07/17 0600 Signed Impressions: Service Date/Time: Thursday, December 07, 2017 04:09 - CONCLUSION: No significant change. Persistent left pleural effusion and left lower lobe atelectasis versus consolidation. Jerry Laureano MD Abdomen X-Ray 12/03/17 1808 Signed Impressions: Service Date/Time: Sunday, December 03, 2017 18:15 - CONCLUSION: Nonspecific abdomen. Lzu Jean MD Bile Duct Drainage 12/03/17 0000 Signed Impressions: Service Date/Time: Sunday, December 03, 2017 14:10 - CONCLUSION: Uncomplicated biliary stent placement as above. Bj Hurtado MD Cholangiopancreatography MRI 12/02/17 0000 Signed Impressions: Service Date/Time: Saturday, December 02, 2017 08:17 - CONCLUSION: 1. Significant dilatation of the intrahepatic ducts ending at the confluence and possibility of stricture at this site or a Klatskin's tumor which is not visualized should be entertained. 2. Wedge-shaped focal fat right hepatic lobe. Luz Jean MD Abdomen Ultrasound 12/01/17 0000 Signed Impressions: Service Date/Time: Friday, December 01, 2017 11:49 - CONCLUSION: 1. Intrahepatic biliary duct dilatation better seen on the CT examination. A lesion at the biliary duct confluence/common hepatic duct region still needs to be suspected. An ERCP or MRCP could be used to further evaluate this region. 2. Suspected area of focal hepatic steatosis at the anterior segment right lobe of the liver. 3. Gallstones Landry Zarate MD Physical Exam HEENT: normocephalic; atraumatic; pale CHEST: CTA CARDIAC: RRR ABDOMEN: RUQ adn RLQ taut, , mildly distended, . ANI drain with serous drainage in tube EXTREMITIES: No clubbing, cyanosis, or edema. SKIN: Normal; no rash; + jaundice. CRITICAL CARE NURSE SPECIALIST: sleeping, but weakly arouses to painful stimuli. (Apoorva Quevedo) Assessment and Plan Plan Initial W/U- abd pain, elevated LFTs, elevated ca 19-9 - lipase wnl, poss malignancy Ct done showed intrahepatic biliary duct dilatation without extrahepatic biliary duct dilatation concern for a lesion at the intrahepatic biliary duct or CBD level, MRCP showed Significant dilatation of the intrahepatic ducts ending at the confluence and possibility of stricture at this site or a Klatskin's tumor which is not visualized should be entertained CA 19-9 elevated at 85 s/p placement biliary drain by IR. Capsular tear liver, s/p ex lap and control liver laceration bleed Anemia, stable 9.1, Alk. Phos, 148 decreased, Bilirubin mild elevated 6.2, LFT 62/50 CT 12/11/17, Pancreatits with inflammatory change persists. Drain good placement Plan: - Diet regular , but continue to encourage liquids. - monitor labs, hgb, bilirubin , lfts - Continue Biliary drain placed per IR and monitor OP, decreased today. - initial consider EUS vs ERCP when stable, Spoke with Dr. Hart, no ERCP for now - - Patient seen and examined by Dr. Hart and myself and this note is written on his behalf. (Apoorva Quevedo) Physician Comments seen, examined we will discuss with IR and surgery about best approach we will consider ercp/eus next week, after discussing with IR and once pancreatitis resolved (Milena Hart MD) Apoorva Quevedo Dec 12, 2017 13:56 Milena Hart MD Dec 12, 2017 21:33
--- NOTE | 2017-12-12 15:35 | HHI.FPPN ---
Addendum to progress note ADDENDUM Reason for addendum: Additonal documentation Additional information Paged at 1419 hours by nursing about Mr Rios's hypotension (89/53 at noon and follow up 87/51 approx 2PM) following acetazolamide diuresis at [address] Valero responded to bedside at 3PM to observe the pt sleeping comfortably in bed. Apparently he had been awake all night and has started sleeping during the day. Nursing notes that pt had end expiratory wheezing this morning, then they suctioned a large amount of mucous after which his lungs were clear for a period, and now he has coarse breath sounds again. His urine output is good but appears more bloody than yesterday. His feels like he is tired from not sleeping last night. While in the room PT arrives to work with pt and asks if we can ensure his orders read PT eval and treat 7 days a week. O: VS: HR in 80s-90s, BP 113/69, RR 16-19, O2 sat 97% 4L NC GENERAL: Well-nourished, well-developed patient resting comfortably in bed. SKIN: Warm and dry. No rashes or lesions. HEAD: Normocephalic. Atraumatic. EYES: No scleral icterus. No injection or drainage. NECK: Supple, trachea midline. No JVD or lymphadenopathy. CARDIOVASCULAR: Regular rate and rhythm without murmur, gallop, or rub. RESPIRATORY: Mildly coarse breath sounds bilaterally in anterior lung ferguson. No accessory muscle use. Improved air movement from previous exam yesterday. No increased WOB. GASTROINTESTINAL: Abdomen soft, non-tender, nondistended. Biliary drain in right lateral abdomen. EXTREMITIES: No cyanosis, or edema. Scant leg hair. NEUROLOGICAL: Awake, alert, and oriented x 3. Non-focal. A/P: 82 YO male s/p biliary drain and liver laceration requiring ex laparotomy to repair liver laceration requiring 6u PRBCs, 3u FFP, 1u PLTs on 12/04 Coarse breath sounds -Frequent suctioning as required -Believe this will improve when he is able to ambulate and better inflate his lungs Increased bloody urine in donis -Current donis has been in place since 12/04/17; consider changing in the next 1- 2 days and dependent on the UA results -UA to sample for CAUTI Hypotension -Resolved, expect that hypotension resulted from rapid diuresis and has now normalized -VS are improved from persistent tachycardia over the past 2 days in the 105- 115 range, BPs in 145/80s, and RR in 20s. -Continue to monitor Other -Continue with pt transfer to floor -OOB with assist/PT will speed his regaining function/mobility and reduce confusion/delirium -Sleep hygiene and visual cues to help re-orient pt to awake in day and sleep at night Pascual Valero MD R1 Dec 12, 2017 15:35
[2017-12-12] MEDS: FLUCONAZOLE 400 MG PREMIX BAG 200 ML IV SCH (16:57)
--- NOTE | 2017-12-12 17:13 | HHI.PR ---
Addendum to Inpatient Note Additional Information pt was seen around 1600 full note to follow Brigette Gill MD Dec 12, 2017 17:12
[2017-12-12 17:25] LABS: AMORPHOUS SEDIMENT, URINE RARE; BACTERIA, URINE OCC /hpf; BILIRUBIN, URINE SMALL (NEG); BLOOD, URINE LARGE (NEG); GLUCOSE,URINE NEG (NEG); KETONE, URINE NEG (NEG); MUCUS URINE FEW /lpf (OCC); NITRITE,URINE NEG (NEG); PH, URINE 8.5 (5.0-8.5); URINE COLOR DARK-YELLOW (YELLW/STRAW); URINE LEUKOCYTE ESTERASE TRACE (NEG)
--- NOTE | 2017-12-12 23:46 | HHI.IDPN ---
Subjective Subjective Remarks pt seen earlier today reamains with high WBC up to 45 o/w VSS stable co abd tenderness Antibiotics zosyn fluconazol Past Medical History Allergies: Coded Allergies: No Known Allergies (Unverified Allergy, Unknown, 12/01/17) Objective . Vital Signs Date Time Temp Pulse Resp B/P (MAP) Pulse Ox O2 Delivery O2 Flow Rate FiO2 12/12/17 20:21 94 Nasal Cannula 2.00 12/12/17 20:00 99 Nasal Cannula 2.00 12/12/17 20:00 98.3 86 20 110/62 (78) 99 12/12/17 20:00 88 12/12/17 18:00 89 12/12/17 16:46 98 Nasal Cannula 2.00 12/12/17 16:00 98.1 98 16 131/73 (92) 96 12/12/17 16:00 95 12/12/17 14:00 100 12/12/17 12:00 98.6 88 14 89/53 (65) 97 12/12/17 12:00 113 12/12/17 10:00 100 12/12/17 08:00 98.3 100 27 145/65 (91) 98 12/12/17 08:00 108 12/12/17 07:00 95 Nasal Cannula 4.00 40 12/12/17 06:00 108 12/12/17 04:00 104 12/12/17 04:00 99.1 104 23 140/65 (90) 96 12/12/17 02:00 90 12/12/17 00:00 98.9 108 25 145/75 (98) 99 12/12/17 00:00 108 12/12/17 12/12/17 12/13/17 15:00 23:00 07:00 Intake Total 250 ml Output Total 1250 ml Balance -1000 ml Intake Oral 250 ml Output Urine Total 1250 ml # Bowel Movements 0 . Laboratory Tests Test 12/11/17 04:17 12/12/17 05:39 White Blood Count 42.6 TH/MM3 45.9 TH/MM3 Red Blood Count 3.49 MIL/MM3 3.12 MIL/MM3 Hemoglobin 9.9 GM/DL 9.1 GM/DL Hematocrit 31.4 % 28.1 % Mean Corpuscular Volume 90.1 FL 90.2 FL Mean Corpuscular Hemoglobin 28.4 PG 29.1 PG Mean Corpuscular Hemoglobin Concent 31.6 % 32.2 % Red Cell Distribution Width 16.5 % 16.8 % Platelet Count 181 TH/MM3 170 TH/MM3 Mean Platelet Volume 9.6 FL 9.3 FL CBC Comment AUTO DIFF AUTO DIFF Differential Total Cells Counted 100 100 Neutrophils % (Manual) 94 % 78 % Band Neutrophils % 1 % 3 % Neutrophils # (Manual) 42.6 TH/MM3 38.1 TH/MM3 Metamyelocytes 5 % Differential Comment FINAL DIFF MANUAL FINAL DIFF MANUAL Platelet Estimate NORMAL NORMAL Platelet Morphology Comment NORMAL NORMAL Stomatocytes 2+ Neutrophils (%) (Auto) 86.3 % Lymphocytes (%) (Auto) 2.8 % Monocytes (%) (Auto) 10.4 % Eosinophils (%) (Auto) 0.3 % Basophils (%) (Auto) 0.2 % Neutrophils # (Auto) 39.6 TH/MM3 Lymphocytes # (Auto) 1.3 TH/MM3 Monocytes # (Auto) 4.8 TH/MM3 Eosinophils # (Auto) 0.1 TH/MM3 Basophils # (Auto) 0.1 TH/MM3 Lymphocytes % 6 % Monocytes % 11 % Myelocytes 2 % Polychromasia 2.4 % Basophilic Stippling FAINT Blood Smear Pathologist Review Laboratory Tests Test 12/11/17 04:17 12/12/17 05:39 12/12/17 17:08 12/12/17 22:30 Blood Urea Nitrogen 23 MG/DL 19 MG/DL Creatinine 0.87 MG/DL 0.97 MG/DL Random Glucose 92 MG/DL 73 MG/DL Total Protein 5.7 GM/DL 5.0 GM/DL Albumin 2.3 GM/DL 1.9 GM/DL Calcium Level 9.5 MG/DL 9.2 MG/DL Phosphorus Level 2.4 MG/DL 2.5 MG/DL Magnesium Level 2.5 MG/DL 2.2 MG/DL Alkaline Phosphatase 166 U/L 148 U/L Aspartate Amino Transf (AST/SGOT) 54 U/L 62 U/L Alanine Aminotransferase (ALT/SGPT) 64 U/L 50 U/L Total Bilirubin 5.4 MG/DL 6.2 MG/DL Sodium Level 147 MEQ/L 143 MEQ/L Potassium Level 3.8 MEQ/L 4.1 MEQ/L Chloride Level 109 MEQ/L 105 MEQ/L Carbon Dioxide Level 34.7 MEQ/L 32.0 MEQ/L Anion Gap 3 MEQ/L 6 MEQ/L Estimat Glomerular Filtration Rate 84 ML/MIN 74 ML/MIN Ammonia 19 MCMOL/L Amylase Level 38 U/L Lipase 132 U/L 104 U/L Lactate Dehydrogenase 390 U/L Lactic Acid Level 1.2 mmol/L Microbiology Date/Time Source Procedure Growth Status 12/10/17 05:46 Blood Peripheral Aerobic Blood Culture - Preliminary NO GROWTH IN 2 DAYS Resulted 12/10/17 05:46 Blood Peripheral Anaerobic Blood Culture - Preliminary NO GROWTH IN 2 DAYS Resulted 12/10/17 05:40 Blood Peripheral Aerobic Blood Culture - Preliminary NO GROWTH IN 2 DAYS Resulted 12/10/17 05:40 Blood Peripheral Anaerobic Blood Culture - Preliminary NO GROWTH IN 2 DAYS Resulted 12/12/17 16:15 Urine Catheterized Urine Urine Culture Pending Received Imaging Last Impressions Abdomen/Pelvis CT 12/11/17 0000 Signed Impressions: Service Date/Time: December 23:42 - CONCLUSION: 1. There has been interval development of diffuse pancreatitis. There is diffuse inflammatory changes surrounding the pancreas. 2. The previously noted fluid adjacent to the liver has resolved. 3. There is an internal/external biliary drainage catheter in place which appears to be in good position and unchanged in position compared to the prior study. 4. There is a small amount of free fluid deep in the pelvis. 5. Small bilateral pleural effusions. Nathen Ruano MD Head CT 12/09/17 0000 Signed Impressions: Service Date/Time: Saturday, December 09, 2017 20:02 - CONCLUSION: Negative noncontrast head CT. Landry Ryan MD Chest X-Ray 12/07/17 0600 Signed Impressions: Service Date/Time: Thursday, December 07, 2017 04:09 - CONCLUSION: No significant change. Persistent left pleural effusion and left lower lobe atelectasis versus consolidation. Jerry Laureano MD Abdomen X-Ray 12/03/17 1808 Signed Impressions: Service Date/Time: Sunday, December 03, 2017 18:15 - CONCLUSION: Nonspecific abdomen. KLivier Jean MD Bile Duct Drainage 12/03/17 0000 Signed Impressions: Service Date/Time: Sunday, December 03, 2017 14:10 - CONCLUSION: Uncomplicated biliary stent placement as above. Bj Hurtado MD Cholangiopancreatography MRI 12/02/17 0000 Signed Impressions: Service Date/Time: Saturday, December 02, 2017 08:17 - CONCLUSION: 1. Significant dilatation of the intrahepatic ducts ending at the confluence and possibility of stricture at this site or a Klatskin's tumor which is not visualized should be entertained. 2. Wedge-shaped focal fat right hepatic lobe. KLivier Jean MD Abdomen Ultrasound 12/01/17 0000 Signed Impressions: Service Date/Time: Friday, December 01, 2017 11:49 - CONCLUSION: 1. Intrahepatic biliary duct dilatation better seen on the CT examination. A lesion at the biliary duct confluence/common hepatic duct region still needs to be suspected. An ERCP or MRCP could be used to further evaluate this region. 2. Suspected area of focal hepatic steatosis at the anterior segment right lobe of the liver. 3. Gallstones Landry Zarate MD Physical Exam CONSTITUTIONAL/GENERAL: This is an adequately nourished patient, in no apparent distress. TUBES/LINES/DRAINS: SKIN: +more prominent jaundice, rashes, or lesions. Skin temperature appropriate. Not diaphoretic. CARDIOVASCULAR: Regular rate and rhythm without murmurs, gallops, or rubs. No JVD. Peripheral pulses symmetric. RESPIRATORY/CHEST: Symmetric, unlabored respirations. Clear to auscultation. Breath sounds equal bilaterally. No wheezes, rales, or rhonchi. GASTROINTESTINAL: Abdomen soft with some tenderness to palpation and is less distended. Biliary drain in place with brown bile Drain d/c'd, minimal drainage at previous drain site No hepato-splenomegaly, or palpable masses. No guarding. Bowel sounds present. GENITOURINARY: Without palpable bladder distension. Carmona catheter in place with scarce amout of dark cloudy urine MUSCULOSKELETAL: Extremities without clubbing, cyanosis, Less edema. No joint tenderness or effusion noted. No calf tenderness. No mottling or clubbing. LYMPHATICS: No palpable cervical or supraclavicular adenopathy. NEUROLOGICAL: Fully awake and alert, follwing commands PSYCHIATRIC: calm and cooperative Assessment & Plan Remarks Acute hypovolemic shock following bleeding 2/2 complicaion of biliary stent placement sp emergent surgery - shock cliniocally resolved Obstructive jaundiced, ethiology not yet established sp biliary stent placement candidal cholangitis Sepsis Leukocytosis, leukemoid reaction - improving initilaly ; worse again Acute VDRF - resolved ARF- resolved Pt significant ly improved clinically Staph epi bacteriuria - doubt clin significance - not a trypical urinary pathogen Pancreatitis by CT finding , but lipase amylase wnl cont zosyn cont fluconazole @ 400 mg IV anticipate transition to oral Augmentin, fluconazol pending further WBC improvement will not switch to oral abx now when pt has substantial leukemoid reaction Brigette Gill MD Dec 12, 2017 23:46
[2017-12-13] VITALS (24 sets, daily range): BP systolic 117–159; BP diastolic 68–79; PULSE 82–130; RESP 18–36; TEMP 97–99.6; O2SAT 93–99
[2017-12-13] MEDS: RESP: ALBUTEROL 2.5 MG/IPRATROPIUM 0.5 MG NEB (SCH) NEB ×6 (03:02→23:34)
[2017-12-13] MEDS: PIPERACILLIN/TAZ 3.375 GM VIAL 3.375 GM in SODIUM CHLORIDE 0.9% INJ 100 ML IV SCH ×4 (04:09→21:09)
[2017-12-13 04:11] LABS: AUTOMATED NEUTROPHIL # 37.8 TH/MM3 (1.8-7.7); BASOPHIL # 0.1 TH/MM3 (0-0.2); BASOPHIL % 0.1 % (0.0-2.0); EOSINOPHIL # 0.1 TH/MM3 (0-0.4); EOSINOPHIL % 0.2 % (0.0-4.0); HEMATOCRIT 27.2 % (39.0-51.0); HEMOGLOBIN 8.5 GM/DL (13.0-17.0); LYMPH % 3.4 % (9.0-44.0); LYMPHOCYTE # 1.5 TH/MM3 (1.0-4.8); MEAN CELL VOLUME 92.6 FL (80.0-100.0); MEAN CORPUSCULAR HEMOGLOBIN 28.9 PG (27.0-34.0); MEAN CORPUSCULAR HGB CONC 31.2 % (32.0-36.0); MEAN PLATELET VOLUME 9.7 FL (7.0-11.0); MONO % 9.3 % (0.0-8.0); PLATELET COUNT 155 TH/MM3 (150-450); RED BLOOD COUNT 2.94 MIL/MM3 (4.50-5.90); RED CELL DISTRIBUTION WIDTH 17.3 % (11.6-17.2); WHITE BLOOD COUNT 43.5 TH/MM3 (4.0-11.0)
[2017-12-13 04:39] LABS: ALBUMIN 1.7 GM/DL (3.4-5.0); ALKALINE PHOSPHATASE 182 U/L (45-117); ALT (GPT) 56 U/L (12-78); AST (GOT) 63 U/L (15-37); BICARBONATE 29.4 MEQ/L (21.0-32.0); BLOOD UREA NITROGEN 19 MG/DL (7-18); CHLORIDE 104 MEQ/L (98-107); CREATININE 1.14 MG/DL (0.60-1.30); GLOMERULAR FILTRATION RATE 62 ML/MIN (>89); GLUCOSE,RANDOM 84 MG/DL (74-106); SODIUM (NA) 141 MEQ/L (136-145); TOTAL BILIRUBIN ADULT 6.4 MG/DL (0.2-1.0); TOTAL PROTEIN 5.2 GM/DL (6.4-8.2)
[2017-12-13 04:54] LABS: BANDS 2 % (0-6); LYMPHOCYTES 3 % (9-44); METAMYELOCYTES 3 % (0-1); MONOCYTES 5 % (0-8); NEUTROPHIL # MANUAL DIFF 39.6 TH/MM3 (1.8-7.7); POLYS (SEG NEUTROPHILS) 86 % (16-70)
[2017-12-13 04:55] LABS: DOHLE BODIES PRESENT (NONE SEEN); STOMATOCYTES 1+ (NORMAL); TOXIC GRANULATION 1+ (NORMAL)
[2017-12-13 04:56] LABS: SPHEROCYTES OCC (NORMAL)
[2017-12-13] MEDS ORDERED: POTASSIUM CHLORIDE 10 MEQ CONTROLLED RELEASE TAB PO ONE ×2 (06:15→16:00)
[2017-12-13] MEDS: LEVOTHYROXINE SODIUM 100 MCG TAB PO SCH (06:21)
[2017-12-13] MEDS: RESP: BUDESONIDE 0.5 MG/2 ML NEB NEB SCH ×2 (07:04→20:16)
--- NOTE | 2017-12-13 08:37 | HHI.FPPN ---
Subjective Remarks Mr Rios was moved to the cardiac floor unit and was tachycardic overnight. This morning her has some new scleral icterus that wasn't present yesterday and nursing reports bilateral wheezing and some drainage around his biliary drain. His reports he seems to be a little confused this morning and is not sure how his night went. He appears to be a little less oriented today than yesterday , but denies pain. Otherwise it is hard to get a report from him. (Pascual Valero MD R1) Objective Vitals Vital Signs Date Time Temp Pulse Resp B/P (MAP) Pulse Ox O2 Delivery O2 Flow Rate FiO2 12/13/17 07:07 96 Nasal Cannula 2.00 12/13/17 06:00 112 12/13/17 05:00 102 12/13/17 04:00 104 12/13/17 03:47 104 18 117/70 (86) 98 12/13/17 03:00 101 12/13/17 02:00 92 12/13/17 01:00 92 12/13/17 00:00 92 12/12/17 23:30 94 20 121/71 (88) 96 12/12/17 23:00 92 12/12/17 22:00 94 12/12/17 21:00 96 12/12/17 20:21 94 Nasal Cannula 2.00 12/12/17 20:00 99 Nasal Cannula 2.00 12/12/17 20:00 98.3 86 20 110/62 (78) 99 12/12/17 20:00 88 12/12/17 18:00 89 12/12/17 16:46 98 Nasal Cannula 2.00 12/12/17 16:00 98.1 98 16 131/73 (92) 96 12/12/17 16:00 95 12/12/17 14:00 100 12/12/17 12:00 98.6 88 14 89/53 (65) 97 12/12/17 12:00 113 12/12/17 10:00 100 I/O 12/12/17 12/12/17 12/12/17 12/13/17 12/13/17 12/13/17 07:00 15:00 23:00 07:00 15:00 23:00 Intake Total 500 ml 300 ml 500 ml Output Total 925 ml 1250 ml 1000 ml Balance -425 ml -950 ml -500 ml Intake Oral 500 ml 250 ml 400 ml IV Total 50 ml 100 ml Output Urine Total 925 ml 1250 ml 1000 ml Drainage Total 0 ml # Bowel Movements 0 0 1 (Pascual Valero MD R1) Result Diagram: 12/13/17 0346 12/13/17 0345 Imaging Last 24 hours Impressions Chest X-Ray 12/13/17 0000 Signed Impressions: Service Date/Time: Wednesday, December 13, 2017 13:50 - CONCLUSION: 1. Expiratory study with crowding of the lung vasculature and patchy opacity in the perihilar regions which may represent atelectasis. 2. Small bilateral pleural effusions. Diomedes Smith MD Abdomen X-Ray 12/13/17 0000 Signed Impressions: Service Date/Time: Wednesday, December 13, 2017 18:55 - CONCLUSION: Nothing acute demonstrated. Nonobstructive bowel gas pattern and no free air. Evidence of right upper quadrant surgery and a internal/external biliary drainage catheter again noted. Landry Ryan MD Objective Remarks GENERAL: Well-nourished, well-developed obese patient, with mildly increased RR lying in bed and is confused. SKIN: Warm and damp. No lesions. Small erythematous and scaly rash on the dorsum of his left hand. HEAD: Normocephalic. Atraumatic. EYES: New mild scleral icterus. No injection or drainage. EOMI. NECK: Supple, trachea midline. No lymphadenopathy. Appears a little clammy. CARDIOVASCULAR: Tachycardia in the 100-115 range with regular rhythm without murmur, gallop, or rub. RESPIRATORY: Inspiratory and expiratory wheezes throughout all lung ferguson. + increased WOB. GASTROINTESTINAL: Abdomen tense, somewhat tender on R side, mildly distended. Normal BS. No guarding. Transverse laparotomy scar over RUQ closed with adrienne is c/d/i with no induration or fluctuance. Biliary drain in place on right lateral abdomen dressing has some dried drainage on the edges of the bandage. > 200cc light green fluid with brown sludge on top following flush of drain. : donis in place draining jeannine urine that is not grossly bloody as yesterday. EXTREMITIES: No cyanosis. Edema noted on his bilateral hands. Scant hair on BLEs. SCDs in place. NEUROLOGICAL: Awake, alert, oriented to name and place but not date. Non-focal. Confused in interview - had trouble attempting to read words on the nursing board. Procedures 12/04/17 - Exploratory laparotomy, liver laceration repair 12/03/17 - Biliary drainage Medications and IVs Current Medications Medications (Trade) Dose Ordered Sig/Rafa Route Start Time Stop Time Status Last Admin (NS Flush) 2 ml UNSCH PRN IV FLUSH 12/01/17 11:00 (NS Flush) 2 ml BID IV FLUSH 12/01/17 21:00 12/13/17 08:56 (Zofran Inj) 4 mg Q6H PRN IVP 12/01/17 11:00 12/09/17 00:50 ([place] 5-325 Mg) 1 tab Q4H PRN PO 12/01/17 11:00 ([place] 10-325 Mg) 1 tab Q4H PRN PO 12/01/17 11:00 12/13/17 08:56 (Narcan Inj) 0.4 mg UNSCH PRN IV PUSH 12/01/17 11:00 (Deedee-Colace) 1 tab BID PO 12/01/17 21:00 12/12/17 21:17 (Milk Of Magnesia Liq) 30 ml Q12H PRN PO 12/01/17 11:00 12/09/17 05:20 (Senokot) 17.2 mg Q12H PRN PO 12/01/17 11:00 (Dulcolax Supp) 10 mg DAILY PRN RECTAL 12/01/17 11:00 (Lactulose Liq) 30 ml DAILY PRN PO 12/01/17 11:00 (Proscar) 5 mg DAILY PO 12/02/17 09:00 Future hold 12/13/17 08:56 (Deltasone) 5 mg DAILY PO 12/02/17 09:00 Future hold 12/13/17 08:56 (Peridex 0.12% Liq) 15 ml BID@08,20 MT 12/04/17 08:00 12/08/17 20:00 Fluconazole/ Sodium Chloride 200 ml @ 100 mls/hr Q24H IV 12/06/17 17:00 12/13/17 17:54 (Albuterol Neb) 2.5 mg Q2HR NEB PRN NEB 12/05/17 22:00 (Synthroid) 100 mcg DAILY@0600 PO 12/08/17 06:00 12/13/17 06:21 (Melatonin) 5 mg HS PRN PO 12/07/17 21:00 12/08/17 23:44 (Tylenol) 500 mg Q6H PRN PO 12/08/17 08:30 (Protonix Inj) 40 mg DAILY IV PUSH 12/10/17 09:00 12/13/17 08:56 (Lactulose Liq) 30 ml DAILY PO 12/11/17 09:00 12/13/17 08:57 (Lopressor) 25 mg Q8H PO 12/11/17 16:00 12/13/17 15:42 (Duoneb Neb) 1 ampule Q4HR NEB NEB 12/12/17 09:30 12/13/17 15:48 (Lovenox Inj) 40 mg Q24H SQ 12/12/17 10:00 12/13/17 09:00 (Pulmicort Respule Neb) 0.5 mg Q12HR NEB NEB 12/12/17 09:45 12/13/17 07:04 Piperacillin Sod/ Tazobactam Sod 3.375 gm/Sodium Chloride 100 ml @ 200 mls/hr Q6H IV 12/13/17 04:00 12/13/17 17:15 (KCl) 20 meq DAILY PO 12/14/17 09:00 (Actigall) 300 mg Q12HR PO 12/13/17 21:00 (Pascual Valero MD R1) Urinary Catheter: Yes Assessment to: Remove Date of Insertion: Dec 04, 2017 Date of Removal: Dec 13, 2017 (Pascual Valero MD R1) Date of Insertion: Dec 03, 2017 Date of Removal: Dec 10, 2017 (Pascual Valero MD R1) A/P Assessment and Plan 82 yo male with h/o PMR, BPH, hyperlipidemia presenting with RUQ pain and UTI and 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 Following IR biliary stent and drainage on 12/03, pt found to have liver laceration and hemorrhage causing hemoperitoneum. Exploratory laparotomy performed emergently on 12/04 requiring 6u PRBCs, 1u FFP and 1u Cryo with EBL 2L. Following surgery, pt was sent to ICU for management and has since had improvement but still with persistently elevated WBC. He was found to have pancreatitis on CT scan but lipase and amylase are not elevated and patient does not have abdominal pain. 12/13: moved to floor in [facility] overnight. Increased RR and tachycardia again. Biliary drain reported to not be draining well - spoke to IR and will get nursing to try and flush first. Likely the cause of scleral icterus. If not successful will call radiology for further action. Will d/c donis today and see if pt can void on his own. He is clammy and not improving today as he was the past 2 days. Discharge Planning Anticipate discharge once patient is clinically stable, time frame unclear. (Pascual Valero MD R1) Attending Attestation Patient seen and examined. Case reviewed and discussed with the resident team. Agree with plan of care as discussed with me and documented in the resident note. Low threshold to transfer to ICU. Check PA/Lat CXR and Abd XR. Monitor urine output and BPs. Spoke with at the bedside. (Elena Landry MD) Problem List: (1) Liver hemorrhage ICD Codes: K76.89 - Other specified diseases of liver Status: Acute Plan: POD9 ex lap on 12/04 for liver laceration Drain removed 12/10 Encourage OOB activity, OT consulted, move to step-down unit for PT, request bed near the nursing station [place] for pain, pain could be underlying reason for tachycardic episodes - Diffuse pancreatitis developed as a result from the drainage per surgery. Will need IR for permanent drain/stent solution so as to allow pancreas to heal Appreciate assistance and recommendations from Dr Montero and Intensivists - Called IR 12/13 for assist with biliary drainage (some drainage around the stent w/concern that drain is not working properly) and pt with new scleral icterus this morning on exam--nurse instructed to flush drain w/5cc NS; if that does not help, will call radiology for more help - Flush resolved drain clog; >200cc drained following flush #1; nurse repeated flush 2-3x during day and each time move fluid was removed (2) Abdominal pain ICD Codes: R10.9 - Unspecified abdominal pain Status: Acute Plan: Stable [place] as needed for pain CT findings as below MRCP findings as below Significant leukocytosis on admission initially improved with Zosyn, increased post-operatively above 50k, CCM explained that this presentation manifests as a result of hemorrhagic shock and stress his body underwent. Differential including malignancy, choledocholithiasis, cholecystitis, kidney stone, UTI - Currently in ICU - care coordinated with GI, surgery, ICU, and Med team A. GI has signed off. After discussion with surgery, decision for moving to step- down warranted to promote OOB activity and patient is stable hemodynamically. - Zosyn 3.375 Q6H IV to cover UTI, abdominal pathogens initially, will continue for duration of surgical drainage and consider d/c at that time - Fluconazole added by [facility] for Marielle albicans in body fluid culture - PO Abx transition when WBC trends downward per ID - Advance diet to softs - f/u outpatient pending GI diagnostic impression/imaging - still needs to determine the presence of tumor vs not. Once diagnosis is determined, surgical options can be considered. CT of the abdomen and pelvis: 12/04/17: Moderate volume hemoperitoneum. Interval placement of a right internal/external earlier a drainage catheter. Drain good position. CT of the abdomen and pelvis: 12/11/17: 1. Interval development of diffuse pancreatitis. Diffuse inflammatory changes surrounding the pancreas. 2. Previously noted fluid adjacent to the liver has resolved. 3. Internal/external biliary drainage catheter in place which appears to be in good position and unchanged in position compared to the prior study. 4. Small amount of free fluid deep in the pelvis. 5. Small bilateral pleural effusions. MRCP: 12/02/17: Significant dilation of the intrahepatic ducts ending in the confluence and possibility of stricture at the site or a lack since tumor which is not visualized should be entertained. Wedge-shaped focal fat right hepatic lobe 12/13: working to ensure biliary drain is working properly as above (3) Tachycardia with heart rate 100-120 beats per minute ICD Codes: R00.0 - Tachycardia, unspecified Plan: Tachycardia in 100-115 range; on Metoprolol tartrate 25mg q8h; pt was normotensive yesterday after diuretic, but tachycardic again overnight -Monitor vitals -12/13: UA 12/12 requiring urine cx which was negative and pt already on zosyn; discontinued donis today; also some wheezing--will get cxr (4) Leukocytosis ICD Codes: D72.829 - Elevated white blood cell count, unspecified Status: Acute Plan: Very high WBCs discussed with Weight Guesser and WBCs up to the 50s can occur with intraabdominal processes, large blood transfusions and infections. He was found to have a candidal infection. ID believes elevated WBC to be leukemoid reaction -Coverage with Zosyn as above as well as fluconazole -ID consulted appreciate recs -Transition to PO Abx when WBC improves per ID -As above: removing donis, working on biliary drain and cxr -Cx of biliary drain fluid pending (5) Polymyalgia rheumatica ICD Codes: M35.3 - Polymyalgia rheumatica Status: Chronic Plan: Continue prednisone 5 mg daily (6) BPH (benign prostatic hyperplasia) ICD Codes: N40.0 - Benign prostatic hyperplasia without lower urinary tract symptoms Status: Chronic Plan: Symptoms currently well controlled, continue home finasteride (7) Hypothyroidism ICD Codes: E03.9 - Hypothyroidism, unspecified Status: Chronic Plan: Continue home Synthroid for now; TSH 0.199 (8) FEN/PPX Plan: Fluids: per surgery and Weight Guesser Electrolytes: Monitor and replace PRN Nutrition: Diet regular basic - patient does not have much appetite for food DVT: Lovenox 40 mg subcutaneous daily (Pascual Valero MD R1) Problem Qualifiers (1) Abdominal pain: Qualified Codes: R10.11 - Right upper quadrant pain (2) Leukocytosis: Qualified Codes: D72.829 - Elevated white blood cell count, unspecified (3) BPH (benign prostatic hyperplasia): Qualified Codes: N40.0 - Benign prostatic hyperplasia without lower urinary tract symptoms (4) Hypothyroidism: Qualified Codes: E03.9 - Hypothyroidism, unspecified Pascual Valero MD R1 Dec 13, 2017 08:36 Elena Landry MD Dec 13, 2017 20:49
[2017-12-13] MEDS: ACETAMINOPHEN/HYDROcodone 325 MG/10 MG TAB PO PRN (08:56)
[2017-12-13] MEDS: SODIUM CHLORIDE 0.9% FLUSH 10 ML FLUSH IV FLUSH SCH ×2 (08:56→21:08)
[2017-12-13] MEDS: METOPROLOL TARTRATE 25 MG TAB PO SCH ×3 (08:56→15:42)
[2017-12-13] MEDS: predniSONE 5 MG TAB PO SCH (08:56)
[2017-12-13] MEDS: FINASTERIDE 5 MG TAB PO SCH (08:56)
[2017-12-13] MEDS: PANTOPRAZOLE SODIUM 40 MG VIAL IV PUSH SCH (08:56)
[2017-12-13] MEDS: LACTULOSE SYRUP 20 GM/30 ML CUP PO SCH (08:57)
[2017-12-13] MEDS: DOCUSATE SODIUM 50 MG/SENNA 8.6 MG TAB PO SCH ×2 (08:57→21:08)
[2017-12-13] MEDS: ENOXAPARIN SODIUM 40 MG/0.4 ML SYRINGE SQ SCH (09:00)
--- NOTE | 2017-12-13 11:48 | HHI.GIFU ---
Subjective Remarks Pt resting in bed, slightly confused. Arms restrained. No complaints at this time. (Reena High) Objective Vitals I&O Vital Signs Date Time Temp Pulse Resp B/P (MAP) Pulse Ox O2 Delivery O2 Flow Rate FiO2 12/13/17 09:30 130 12/13/17 09:30 97.6 130 36 159/77 (104) 93 12/13/17 09:30 90 Nasal Cannula 3.00 12/13/17 07:07 96 Nasal Cannula 2.00 12/13/17 06:00 112 12/13/17 05:00 102 12/13/17 04:00 104 12/13/17 03:47 104 18 117/70 (86) 98 12/13/17 03:00 101 12/13/17 02:00 92 12/13/17 01:00 92 12/13/17 00:00 92 12/12/17 23:30 94 20 121/71 (88) 96 12/12/17 23:00 92 12/12/17 22:00 94 12/12/17 21:00 96 12/12/17 20:21 94 Nasal Cannula 2.00 12/12/17 20:00 99 Nasal Cannula 2.00 12/12/17 20:00 98.3 86 20 110/62 (78) 99 12/12/17 20:00 88 12/12/17 18:00 89 12/12/17 16:46 98 Nasal Cannula 2.00 12/12/17 16:00 98.1 98 16 131/73 (92) 96 12/12/17 16:00 95 12/12/17 14:00 100 12/12/17 12:00 98.6 88 14 89/53 (65) 97 12/12/17 12:00 113 I/O 12/12/17 12/12/17 12/12/17 12/13/17 12/13/17 12/13/17 07:00 15:00 23:00 07:00 15:00 23:00 Intake Total 500 ml 300 ml 500 ml Output Total 925 ml 1250 ml 1000 ml Balance -425 ml -950 ml -500 ml Intake Oral 500 ml 250 ml 400 ml IV Total 50 ml 100 ml Output Urine Total 925 ml 1250 ml 1000 ml Drainage Total 0 ml # Bowel Movements 0 0 1 Laboratory Laboratory Tests Test 12/12/17 16:15 12/12/17 17:08 12/12/17 22:30 12/13/17 03:45 Urine Color DARK-YELLOW Urine Turbidity HAZY Urine pH 8.5 Urine Specific Alexander 1.020 Urine Protein 30 Urine Glucose (UA) NEG Urine Ketones NEG Urine Occult Blood LARGE Urine Nitrite NEG Urine Bilirubin SMALL Urine Urobilinogen LESS THAN 2.0 Urine Leukocyte Esterase TRACE Urine RBC Urine WBC 18 Urine Amorphous Sediment RARE Urine Bacteria OCC Urine Mucus FEW Microscopic Urinalysis Comment CATH-CULTURE IND Lactate Dehydrogenase 390 Lipase 104 Lactic Acid Level 1.2 Blood Urea Nitrogen 19 Creatinine 1.14 Random Glucose 84 Total Protein 5.2 Albumin 1.7 Calcium Level 9.0 Alkaline Phosphatase 182 Aspartate Amino Transf (AST/SGOT) 63 Alanine Aminotransferase (ALT/SGPT) 56 Total Bilirubin 6.4 Sodium Level 141 Potassium Level 3.0 Chloride Level 104 Carbon Dioxide Level 29.4 Anion Gap 8 Estimat Glomerular Filtration Rate 62 Test 12/13/17 03:46 White Blood Count 43.5 Red Blood Count 2.94 Hemoglobin 8.5 Hematocrit 27.2 Mean Corpuscular Volume 92.6 Mean Corpuscular Hemoglobin 28.9 Mean Corpuscular Hemoglobin Concent 31.2 Red Cell Distribution Width 17.3 Platelet Count 155 Mean Platelet Volume 9.7 Neutrophils (%) (Auto) 87.0 Lymphocytes (%) (Auto) 3.4 Monocytes (%) (Auto) 9.3 Eosinophils (%) (Auto) 0.2 Basophils (%) (Auto) 0.1 Neutrophils # (Auto) 37.8 Lymphocytes # (Auto) 1.5 Monocytes # (Auto) 4.0 Eosinophils # (Auto) 0.1 Basophils # (Auto) 0.1 CBC Comment AUTO DIFF Differential Total Cells Counted 100 Neutrophils % (Manual) 86 Band Neutrophils % 2 Lymphocytes % 3 Monocytes % 5 Eosinophils % 1 Neutrophils # (Manual) 39.6 Metamyelocytes 3 Differential Comment FINAL DIFF MANUAL Toxic Granulation 1+ Dohle Bodies PRESENT Platelet Estimate NORMAL Platelet Morphology Comment NORMAL Basophilic Stippling MOD Spherocytes OCC Stomatocytes 1+ Date/Time Source Procedure Growth Status 12/10/17 05:46 Blood Peripheral Aerobic Blood Culture - Preliminary NO GROWTH IN 3 DAYS Resulted 12/10/17 05:46 Blood Peripheral Anaerobic Blood Culture - Preliminary NO GROWTH IN 3 DAYS Resulted 12/04/17 00:42 Fluid Bile Fluid Gram Stain - Final Complete 12/04/17 00:42 Body Fluid Culture - Final Jabari Albicans Complete 12/12/17 16:15 Urine Catheterized Urine Urine Culture Pending Received Imaging Last Impressions Abdomen/Pelvis CT 12/11/17 0000 Signed Impressions: Service Date/Time: December 23:42 - CONCLUSION: 1. There has been interval development of diffuse pancreatitis. There is diffuse inflammatory changes surrounding the pancreas. 2. The previously noted fluid adjacent to the liver has resolved. 3. There is an internal/external biliary drainage catheter in place which appears to be in good position and unchanged in position compared to the prior study. 4. There is a small amount of free fluid deep in the pelvis. 5. Small bilateral pleural effusions. Nathen Ruano MD Head CT 12/09/17 0000 Signed Impressions: Service Date/Time: Saturday, December 09, 2017 20:02 - CONCLUSION: Negative noncontrast head CT. Landry Ryan MD Chest X-Ray 12/07/17 0600 Signed Impressions: Service Date/Time: Thursday, December 07, 2017 04:09 - CONCLUSION: No significant change. Persistent left pleural effusion and left lower lobe atelectasis versus consolidation. Jerry Laureano MD Abdomen X-Ray 12/03/17 1808 Signed Impressions: Service Date/Time: Sunday, December 03, 2017 18:15 - CONCLUSION: Nonspecific abdomen. Luz Jean MD Bile Duct Drainage 12/03/17 0000 Signed Impressions: Service Date/Time: Sunday, December 03, 2017 14:10 - CONCLUSION: Uncomplicated biliary stent placement as above. Bj Hurtado MD Cholangiopancreatography MRI 12/02/17 0000 Signed Impressions: Service Date/Time: Saturday, December 02, 2017 08:17 - CONCLUSION: 1. Significant dilatation of the intrahepatic ducts ending at the confluence and possibility of stricture at this site or a Klatskin's tumor which is not visualized should be entertained. 2. Wedge-shaped focal fat right hepatic lobe. Luz Jean MD Abdomen Ultrasound 12/01/17 0000 Signed Impressions: Service Date/Time: Friday, December 01, 2017 11:49 - CONCLUSION: 1. Intrahepatic biliary duct dilatation better seen on the CT examination. A lesion at the biliary duct confluence/common hepatic duct region still needs to be suspected. An ERCP or MRCP could be used to further evaluate this region. 2. Suspected area of focal hepatic steatosis at the anterior segment right lobe of the liver. 3. Gallstones Landry Zarate MD Physical Exam HEENT: Normocephalic; atraumatic CHEST: End expiratory wheezing CARDIAC: RRR ABDOMEN: Distended, firm, bowel sounds active. Biliary drain with significant amount of output in drainage bag, dressing on abdomen clean and dry. Marian to RUQ, mild erythema, well approximated, no active drainage. EXTREMITIES: No clubbing, cyanosis, or edema. SKIN: Normal; no rash; + jaundice. 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 Capsular tear liver, s/p ex lap and control liver laceration bleed Anemia, stable 9.1, Alk. Phos, 148 decreased, Bilirubin mild elevated 6.2, LFT 62/50 CT 12/11/17, Pancreatits with inflammatory change persists. Drain good placement (12/13) Pt is S/P biliary drain placed by IR and S/P emergent exploratory laparotomy for liver laceration and hemoperitoneum on 12/04. CT abdomen and pelvis with IV contrast (12/11) --> There has been interval development of diffuse pancreatitis. There is diffuse inflammatory changes surrounding the pancreas. The previously noted fluid adjacent to the liver has resolve. There is an internal/external biliary drainage catheter in place which appears to be in good position and unchanged in position compared to prior study. There is a small amount of free fluid deep in the pelvis. Small bilateral pleural effusions. Pt now with elevated WBC count, tachycardic, afebrile. On Zosyn. Bile culture showed jabari, pt on IV Fluconazole. Lipase- 104. Pt currently has regular diet, per he has not been eating much. LFTs currently AST-62 ALT-50 Alk phos-148 T bili 6.2. Plan for possible EUS vs ERCP next week, Dr. Hart to discuss with IR. No procedures until resolution of pancreatitis Plan: - Monitor biliary drain output - Monitor labs - LA - EUS vs ERCP next week, Dr. Hart to discuss case with IR and determine - No procedures until resolution of pancreatitis - Supportive care - Further recommendations to follow - Patient seen and examined by Dr. Hart and myself and this note is written on his behalf. (Reena High) Physician Comments seen, examined agree with above calorie tray count dietary consult biliary drain needs to be flushed quite often, IR may need to upsize tube, IR was informed ammonia level consider albumin followed by IV Lasix trial of Actigall 300 mg po bid (Milena Hart MD) Reena High Dec 13, 2017 11:48 Milena Hart MD Dec 13, 2017 18:09
--- NOTE | 2017-12-13 14:12 | RADRPT ---
EXAM DATE/TIME: 12/13/2017 13:50 [facility] COMPARISON: No previous studies available for comparison. INDICATIONS : Shortness of breath. MEDICAL HISTORY : Cardiovascular disease. Renal calculi SURGICAL HISTORY : Biliary stent placement. Laparotomy ENCOUNTER: Subsequent ACUITY: 2 weeks PAIN SCORE: 4/10 LOCATION: Bilateral upper chest FINDINGS: AP and lateral views the chest were obtained. The views are Midinspiratory with crowding of the lung vasculature. There is patchy opacity in the perihilar regions which represent atelectasis. There is b lunting of the posterior costophrenic angles consistent with small effusions. There is a right percut aneous biliary drainage catheter in place. CONCLUSION: 1. Expiratory study with crowding of the lung vasculature and patchy opacity in the perihilar regions which may represent atelectasis. 2. Small bilateral pleural effusions. Diomedes Smith MD on December 13, 2017 at 14:04 Board Certified Radiologist. This report was verified electronically.
[2017-12-13] MEDS ORDERED: ALBUMIN 25% INJ 100 ML IV ONE (14:45)
[2017-12-13] MEDS ORDERED: FUROSEMIDE 20 MG/2 ML VIAL IV PUSH SCH (14:45)
--- NOTE | 2017-12-13 15:27 | MB ---
cc: [facility]ONATH[facility] DATE OF CONSULTATION: 12/12/2017. REASON FOR CONSULTATION: Patient with persistent leukocytosis. HISTORY OF PRESENT ILLNESS: This is a 52-year-old male who has history of polymyalgia rheumatica, hyperlipidemia and benign prostate hypertrophy who presented to the [facility] on December 01 with right upper quadrant pain and jaundice. His liver functions were abnormal indicating an obstructive pattern. In the emergency department, he had CT imaging which showed intrahepatic dilatation. The patient was evaluated by gastroenterology and underwent an MRCP. 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 He underwent percutaneous biliary stent placement and draining interventional radiology. Postprocedure he became hypotensive requiring aggressive fluid resuscitation and steroids. He developed a biliary sepsis and was placed on antibiotics. Then he became hypotensive and was transferred to the intensive care unit. He began to develop leukocytosis and there was also drop in his hemoglobin. He required pressors and blood product support. A CT of the abdomen was obtained, which showed hemoperitoneum and hemorrhage adjacent to the liver. The biliary drain was in good position. He then underwent emergent laparotomy. He has been requiring packed red blood cells and fresh frozen plasma support. He has also received platelets and prior transfusions. The patient has remained tachycardiac; however he is somewhat improved today. He has persistent leukocytosis. He is being followed by infectious disease. There was Marielle albicans growing in the biliary culture. He also developed a urinary tract infection on admission with Staph epidermidis. Blood cultures have been negative. He is currently on Zosyn and fluconazole. CT of the abdomen and pelvis from today reveals pancreatitis but resolution of the hemoperitoneum. I have been consulted to evaluate this patient who has had leukocytosis in the 40,000 range. The patient is now being transferred out of the intensive care unit. His was present during the evaluation. The patient was quite sleepy. He appears jaundiced. He was arousable and mumbled responses but the said that he has not slept last night and is "catching up on his sleep". He did not endorse any pain. The abdomen is mildly tender. He had a low-grade fever earlier today at 99.1 but largely has been afebrile all day. He has no past history is of blood disorder history of blood disorder. REVIEW OF SYSTEMS: A comprehensive review of systems was completed, which is negative except as described in the history of present illness. PAST MEDICAL HISTORY: 1. Polymyalgia rheumatica. 2. Benign prostate hypertrophy. 3. Hyperlipidemia. PAST SURGICAL HISTORY: 1. Neck surgery in 2016 with cervical fusion. 2. Back surgery in 2010 with laminectomy and fusion. FAMILY HISTORY: Reviewed. The patient was unable to give me a good family history but I did talk to his and it is noncontributory to this admission. SOCIAL HISTORY: . He quit smoking in 1979. He has a history of two packs per day smoking cigarettes approximately 50 pack/years. He used to drink heavily but now he drinks alcohol infrequently. He is retired from the . MEDICATIONS: These were reviewed in the electronic medical record and he is currently on: 1. Zosyn. 2. Lovenox. 3. DuoNeb. 4. Metoprolol. 5. Lactulose. 6. Pantoprazole. 7. Tylenol. 8. Levothyroxine. 9. Melatonin. 10. Fluconazole. 11. Proscar. 12. Prednisone 5 milligrams daily. 13. Docusate. 14. Zofran PRN. 15. [place] 10 x 325 PRN. 16. Senna PRN. 17. Bisacodyl PRN. 18. Lactulose PRN. ALLERGIES: NO KNOWN DRUG ALLERGIES. PHYSICAL EXAMINATION: VITAL SIGNS: Blood pressure is 110/62, pulse in the 80s, temperature is 98.3. GENERAL: Acutely ill patient who is currently very sleepy and has biliary drains in place. He opens his eyes but is not answering questions. His was present during this conversation. HEAD, EYES, EARS, NOSE, THROAT: Pupils are equal, round, react to light. Extraocular muscles intact. No oral thrush. No oral lesions. NECK: Neck is supple. No JVD, no bruits. No lymphadenopathy. CHEST: Bilateral coarse sounds. CARDIAC: S1-S2, mildly tachycardiac. ABDOMEN: Soft, distended. Bowel sounds are decreased. EXTREMITIES: Without any edema, erythema or cyanosis. SKIN: Without any petechiae, lesions or bruises. Mildly jaundiced. NEUROLOGIC: Unable to complete the exam but grossly no focal deficits. Extremely lethargic. PSYCHIATRIC: Unable to evaluate. LABORATORY DATA: WBCs are 45.9, hemoglobin is 9.1, MCV 90.2, platelet count is 170,000. Serum chemistries: Sodium is 143, potassium 4.1, CO2 32, BUN 19, creatinine 0.97, GFR 74, phosphorus 2.5, magnesium 2.2, total bilirubin 6.2, AST 62, ALT is 50, alkaline phosphatase is 146, total protein 5, albumin 1.9. Coags show PT of 10.3, INR 1, PTT 25.3. Fibrinogen 449. Biliary drain culture from 12/04/2017 shows Marielle albicans. Urine culture from 12/01/17 shows Staphylococcus epidermidis. IMAGING STUDIES: Chest x-ray, CT of the abdomen and pelvis, head CT and other imaging was reviewed in the electronic medical record. ASSESSMENT AND PLAN: This is an 82-year-old male with a history of polymyalgia rheumatica, benign prostate hypertrophy, and hyperlipidemia, hypothyroidism who presented to the emergency room with right upper quadrant pain. He was jaundiced. He had biliary obstruction. He has undergone biliary drain placement. His clinica course has been complicated by biliary hemorrhage, sepsis, hypotension, Marielle with infection. I have been consulted to assess leukocytosis. 1. Leukocytosis most likely inflammatory and due to underlying infection. I have reviewed his peripheral smear again. This was also reviewed by pathology. This is consistent with an infectious process. There is a left shift maturation toxic granulation was seen with ____ bodies. Continue to treat the underlying cause. I will continue to monitor his white blood cell count. He has no past history of any blood disorders. This does not appear to be any underlying leukemia, MDS or lymphoma. He may continue to have persistent leukocytosis for several weeks. 2. Normocytic anemia. Obtain anemia studies. Check B12 and folate. Obtain hemolysis panel. His bilirubin is elevated, which is likely from the obstruction. I will check a direct Edison test. Obtain a stool hemoccult. 4. Acute pancreatitis. This can be contributing to his leukocytosis. 5. Sepsis infection. Continue to treat with supportive care and antibiotics. Thank you for allowing me to participate in the care of this patient. I will continue to follow this patient along. MD YANETH Umanzor/LAURIE /2:18 PM /2:56 PM
[2017-12-13 17:38] LABS: BILIRUBIN, URINE MOD (NEG); BLOOD, URINE NEG (NEG); GLUCOSE,URINE NEG (NEG); KETONE, URINE NEG (NEG); NITRITE,URINE NEG (NEG); PH, URINE 7.5 (5.0-8.5); SQUAMOUS EPITHELIAL CELL URINE 2 /hpf (0-5); URINE COLOR DARK-YELLOW (YELLW/STRAW); URINE LEUKOCYTE ESTERASE TRACE (NEG)
[2017-12-13] MEDS: FLUCONAZOLE 400 MG PREMIX BAG 200 ML IV SCH (17:54)
[2017-12-13] MEDS ORDERED: FUROSEMIDE 20 MG/2 ML VIAL IV PUSH ONE (18:15)
--- NOTE | 2017-12-13 19:30 | RADRPT ---
EXAM DATE/TIME: 12/13/2017 18:55 [facility] COMPARISON: No previous studies available for comparison. INDICATIONS : Distention, Abdominal Pain MEDICAL HISTORY : Cardiovascular disease. Renal calculi SURGICAL HISTORY : Biliary stent placement. Laparotomy ENCOUNTER: Initial ACUITY: 2 weeks PAIN SCORE: 4/10 LOCATION: Bilateral Abdomen FINDINGS: Surgical adrienne related to a recent right upper quadrant incision again noted. An internal/external biliary drainage catheter is again noted, distal tip in the duodenum. No gastric or small or large valdemar wel distention demonstrated. No free air demonstrated. CONCLUSION: Nothing acute demonstrated. Nonobstructive bowel gas pattern and no free air. Evidence of right upper quadrant surgery and a internal/external biliary drainage catheter again noted. Landry Ryan MD on December 13, 2017 at 19:25 Board Certified Radiologist. This report was verified electronically.
[2017-12-13] MEDS: CHLORHEXIDINE 0.12% (ORAL KIT) 15 ML CUP MT SCH (20:00)
[2017-12-13] MEDS: URSODIOL 300 MG CAP PO SCH (21:08)
[2017-12-14] VITALS (20 sets, daily range): BP systolic 124–156; BP diastolic 67–86; PULSE 84–118; RESP 16–32; TEMP 97.6–98.8; O2SAT 92–99
[2017-12-14] MEDS: METOPROLOL TARTRATE 25 MG TAB PO SCH ×5 (00:37→22:57)
[2017-12-14] MEDS: RESP: ALBUTEROL 2.5 MG/IPRATROPIUM 0.5 MG NEB (SCH) NEB ×5 (03:21→21:45)
[2017-12-14] MEDS: PIPERACILLIN/TAZ 3.375 GM VIAL 3.375 GM in SODIUM CHLORIDE 0.9% INJ 100 ML IV SCH ×4 (04:11→22:43)
[2017-12-14] MEDS: LEVOTHYROXINE SODIUM 100 MCG TAB PO SCH (06:29)
[2017-12-14 08:30] LABS: AUTOMATED NEUTROPHIL # 30.6 TH/MM3 (1.8-7.7); BASOPHIL # 0.1 TH/MM3 (0-0.2); BASOPHIL % 0.2 % (0.0-2.0); EOSINOPHIL # 0.2 TH/MM3 (0-0.4); EOSINOPHIL % 0.4 % (0.0-4.0); HEMATOCRIT 26.1 % (39.0-51.0); HEMOGLOBIN 8.5 GM/DL (13.0-17.0); LYMPHOCYTE # 1.1 TH/MM3 (1.0-4.8); MEAN CELL VOLUME 90.6 FL (80.0-100.0); MEAN CORPUSCULAR HEMOGLOBIN 29.5 PG (27.0-34.0); MEAN CORPUSCULAR HGB CONC 32.6 % (32.0-36.0); MEAN PLATELET VOLUME 9.4 FL (7.0-11.0); MONO % 11.8 % (0.0-8.0); MONOCYTE # 4.3 TH/MM3 (0-0.9); NEUT % 84.6 % (16.0-70.0); PLATELET COUNT 165 TH/MM3 (150-450); RED BLOOD COUNT 2.88 MIL/MM3 (4.50-5.90); RED CELL DISTRIBUTION WIDTH 17.5 % (11.6-17.2); WHITE BLOOD COUNT 36.2 TH/MM3 (4.0-11.0)
[2017-12-14 08:48] LABS: AST (GOT) 72 U/L (15-37); BICARBONATE 29.2 MEQ/L (21.0-32.0); BLOOD UREA NITROGEN 14 MG/DL (7-18); CALCIUM 9.3 MG/DL (8.5-10.1); CHLORIDE 106 MEQ/L (98-107); CREATININE 0.95 MG/DL (0.60-1.30); GLOMERULAR FILTRATION RATE 76 ML/MIN (>89); GLUCOSE,RANDOM 108 MG/DL (74-106); MAGNESIUM 2.1 MG/DL (1.5-2.5); SODIUM (NA) 142 MEQ/L (136-145)
[2017-12-14 08:49] LABS: ALT (GPT) 61 U/L (12-78); PHOSPHORUS 1.6 MG/DL (2.5-4.9)
[2017-12-14] MEDS: ACETAMINOPHEN/HYDROcodone 325 MG/10 MG TAB PO PRN ×2 (08:51→13:48)
[2017-12-14] MEDS: ENOXAPARIN SODIUM 40 MG/0.4 ML SYRINGE SQ SCH (08:51)
[2017-12-14] MEDS: predniSONE 5 MG TAB PO SCH (08:52)
[2017-12-14] MEDS: LACTULOSE SYRUP 20 GM/30 ML CUP PO SCH (08:52)
[2017-12-14] MEDS: FINASTERIDE 5 MG TAB PO SCH (08:52)
[2017-12-14] MEDS: DOCUSATE SODIUM 50 MG/SENNA 8.6 MG TAB PO SCH ×2 (08:52→21:00)
[2017-12-14] MEDS: URSODIOL 300 MG CAP PO SCH ×4 (08:52→22:57)
[2017-12-14] MEDS: SODIUM CHLORIDE 0.9% FLUSH 10 ML FLUSH IV FLUSH SCH ×2 (08:53→22:42)
[2017-12-14] MEDS: PANTOPRAZOLE SODIUM 40 MG VIAL IV PUSH SCH (08:53)
[2017-12-14] MEDS: POTASSIUM CHLORIDE 20 MEQ CONTROLLED RELEASE TAB PO SCH (08:53)
[2017-12-14 09:14] LABS: ALKALINE PHOSPHATASE 215 U/L (45-117); TOTAL BILIRUBIN ADULT 7.2 MG/DL (0.2-1.0); TOTAL PROTEIN 5.5 GM/DL (6.4-8.2)
[2017-12-14 09:54] LABS: BANDS 1 % (0-6); LYMPHOCYTES 3 % (9-44); MONOCYTES 12 % (0-8); MYELOCYTES 1 % (0-0); NEUTROPHIL # MANUAL DIFF 30.4 TH/MM3 (1.8-7.7); POLYS (SEG NEUTROPHILS) 82 % (16-70)
[2017-12-14] MEDS: RESP: BUDESONIDE 0.5 MG/2 ML NEB NEB SCH ×2 (10:06→21:45)
--- NOTE | 2017-12-14 10:17 | RADRPT ---
EXAM DATE/TIME: 12/14/2017 09:01 [facility] COMPARISON: CT ABDOMEN & PELVIS W CONTRAST, December 11, 2017, 23:42. US ABDOMEN - COMPLETE, December 01, 2017, 11 :49. INDICATIONS : Evaluate for ascites. Abdominal pain. Liver laceration. Biliary drainage tube. MEDICAL HISTORY : Thyroid disease. Hypercholesterol. Gall stones. Hernia. GERD. Kidney stones. SURGICAL HISTORY : Back surgery. Hernia repair. Prostate biopsy. ENCOUNTER: Subsequent ACUITY: 4-6 days PAIN SCORE: 8/10 LOCATION: Bilateral upper quadrant MEASUREMENTS: LIVER: Unable to measure due to bandages. COMMON DUCT: 4 mm RIGHT KIDNEY: 11.4 x 5.7 x 6.0 cm LEFT KIDNEY: 10.7 x 5.0 x 6.3 cm SPLEEN: 10.9 cm length AORTA: not seen FINDINGS: LIVER: Normal echotexture without focal lesion or ductal dilatation. Minimal ascites in the right upper quad rant. COMMON DUCT: Focal hepatic steatosis of the anterior right lobe of liver again seen with similar appearance to colton or ultrasound and CT. GALLBLADDER: Knowledge that on the study. Appears collapsed. PANCREAS: Poorly visualized due to overlying bowel gas. RIGHT KIDNEY: No hydronephrosis, stone or mass. LEFT KIDNEY: No hydronephrosis, stone or mass. SPLEEN: No focal lesion. AORTA: Poorly visualized. IVC: Poorly visualized. CONCLUSION: Limited study due to bandages on the abdomen and bowel gas. Focal fatty infiltration right lobe of li femi again seen. Gallbladder appears collapsed. Minimal ascites. Jerry Laureano MD on December 14, 2017 at 10:08 Board Certified Radiologist. This report was verified electronically.
[2017-12-14] MEDS: ALBUMIN 25% INJ 50 ML IV SCH ×2 (12:44→22:43)
--- NOTE | 2017-12-14 12:47 | HHI.FPPN ---
Subjective Remarks Mr Rios had no acute events overnight. Over a liter of fluid from the biliary drain, but required multiple flushes to continue to drain properly. Following albumin and Lasix, he had good urine output and was voiding on his own. He is still confused, a little jaundiced and tachycardic. He ate 1/2 of a banana this morning. He appears a little less distended, but is still a little clammy and diaphoretic. His abdomen is tender to palpation. . This morning, green biliary fluid is mucoid and is flowing much slower and may need a larger lumen to empty properly. Denies CP but otherwise disoriented. (Pascual Valero MD R1) Objective Vitals Vital Signs Date Time Temp Pulse Resp B/P (MAP) Pulse Ox O2 Delivery O2 Flow Rate FiO2 12/14/17 10:01 97 Nasal Cannula 2.00 12/14/17 07:27 Nasal Cannula 3.00 12/14/17 07:27 103 12/14/17 06:00 104 12/14/17 05:00 116 12/14/17 04:00 106 12/14/17 03:24 107 20 154/79 (104) 98 12/14/17 03:00 104 12/14/17 02:00 100 12/14/17 01:00 98 12/14/17 00:00 100 12/13/17 23:26 95 18 146/73 (97) 97 12/13/17 23:00 99 12/13/17 22:00 102 12/13/17 21:00 92 12/13/17 20:16 98 Nasal Cannula 2.00 12/13/17 20:00 82 12/13/17 19:40 97.0 88 20 155/79 (104) 99 12/13/17 19:40 99 Nasal Cannula 2.00 12/13/17 19:00 97 12/13/17 18:06 88 12/13/17 17:38 88 12/13/17 16:00 95 12/13/17 15:55 99.6 105 20 147/69 (95) 93 12/13/17 13:17 97.6 105 24 125/68 (87) 93 I/O 1/13/18 1/13/18 1/13/18 1/14/18 1/14/18 1/14/18 06:59 14:59 22:59 06:59 14:59 22:59 Intake Total 500 ml 400 ml 580 ml Output Total 1000 ml 821 ml 1800 ml Balance -500 ml -421 ml -1220 ml Intake Oral 400 ml 480 ml IV Total 100 ml 400 ml 100 ml Output Urine Total 1000 ml 120 ml 1500 ml Stool Total 1 ml Drainage Total 700 ml 300 ml Bladder Scan Volume Amount 68 ml # Voids 4 # Bowel Movements 1 (Pascual Valero MD R1) Result Diagram: 12/14/17 0815 12/14/1715 Imaging Last 48 hours Impressions Abdomen Ultrasound 12/14/17 0000 Signed Impressions: Service Date/Time: Thursday, December 14, 2017 09:01 - CONCLUSION: Limited study due to bandages on the abdomen and bowel gas. Focal fatty infiltration right lobe of liver again seen. Gallbladder appears collapsed. Minimal ascites. Jerry Laureano MD Chest X-Ray 12/13/17 0000 Signed Impressions: Service Date/Time: Wednesday, December 13, 2017 13:50 - CONCLUSION: 1. Expiratory study with crowding of the lung vasculature and patchy opacity in the perihilar regions which may represent atelectasis. 2. Small bilateral pleural effusions. Diomedes Smith MD Abdomen X-Ray 12/13/17 0000 Signed Impressions: Service Date/Time: Wednesday, December 13, 2017 18:55 - CONCLUSION: Nothing acute demonstrated. Nonobstructive bowel gas pattern and no free air. Evidence of right upper quadrant surgery and a internal/external biliary drainage catheter again noted. Landry Ryan MD Objective Remarks GENERAL: Well-nourished, well-developed mildly jaundiced obese patient, with mildly increased RR lying in bed, diaphoretic and is confused. SKIN: Warm and damp. No lesions. Small erythematous and scaly rash on the dorsum of his left hand. HEAD: Normocephalic. Atraumatic. EYES: New mild scleral icterus. No injection or drainage. NECK: Supple, trachea midline. No lymphadenopathy. Appears a little clammy. CARDIOVASCULAR: Tachycardia in the 100-105 range with regular rhythm without murmur, gallop, or rub. RESPIRATORY: Lung ferguson are clearer today with squeaky expiratory wheeze in left upper lung field. Slightly increased WOB w/o accessory muscle use. GASTROINTESTINAL: Abdomen less tense, TTP, still mildly distended. Normal BS. No guarding. Transverse laparotomy scar over RUQ closed with adrienne is c/d/i with no induration or fluctuance. Biliary drain in place on right lateral abdomen dressing has some dried drainage on the edges of the bandage. EXTREMITIES: No cyanosis. Edema noted on his bilateral hands. Scant hair on BLEs. SCDs in place. NEUROLOGICAL: Awake but not oriented. Confused. Procedures 12/04/17 - Exploratory laparotomy, liver laceration repair 12/03/17 - Biliary drainage Medications and IVs Current Medications Medications (Trade) Dose Ordered Sig/Rafa Route Start Time Stop Time Status Last Admin (NS Flush) 2 ml UNSCH PRN IV FLUSH 12/01/17 11:00 (NS Flush) 2 ml BID IV FLUSH 12/01/17 21:00 12/14/17 08:53 (Zofran Inj) 4 mg Q6H PRN IVP 12/01/17 11:00 12/09/17 00:50 ([place] 5-325 Mg) 1 tab Q4H PRN PO 12/01/17 11:00 ([place] 10-325 Mg) 1 tab Q4H PRN PO 12/01/17 11:00 12/14/17 08:51 (Narcan Inj) 0.4 mg UNSCH PRN IV PUSH 12/01/17 11:00 ([place]-Colace) 1 tab BID PO 12/01/17 21:00 12/14/17 08:52 (Milk Of Magnesia Liq) 30 ml Q12H PRN PO 12/01/17 11:00 12/09/17 05:20 (Senokot) 17.2 mg Q12H PRN PO 12/01/17 11:00 (Dulcolax Supp) 10 mg DAILY PRN RECTAL 12/01/17 11:00 (Lactulose Liq) 30 ml DAILY PRN PO 12/01/17 11:00 (Proscar) 5 mg DAILY PO 12/02/17 09:00 Future hold 12/14/17 08:52 (Deltasone) 5 mg DAILY PO 12/02/17 09:00 Future hold 12/14/17 08:52 (Peridex 0.12% Liq) 15 ml BID@08,20 MT 12/04/17 08:00 12/08/17 20:00 Fluconazole/ Sodium Chloride 200 ml @ 100 mls/hr Q24H IV 12/06/17 17:00 12/13/17 17:54 (Albuterol Neb) 2.5 mg Q2HR NEB PRN NEB 12/05/17 22:00 (Synthroid) 100 mcg DAILY@0600 PO 12/08/17 06:00 12/14/17 06:29 (Melatonin) 5 mg HS PRN PO 12/07/17 21:00 12/08/17 23:44 (Tylenol) 500 mg Q6H PRN PO 12/08/17 08:30 (Protonix Inj) 40 mg DAILY IV PUSH 12/10/17 09:00 12/14/17 08:53 (Lactulose Liq) 30 ml DAILY PO 12/11/17 09:00 12/14/17 08:52 (Lopressor) 25 mg Q8H PO 12/11/17 16:00 12/14/17 08:52 (Duoneb Neb) 1 ampule Q4HR NEB NEB 12/12/17 09:30 12/14/17 10:06 (Lovenox Inj) 40 mg Q24H SQ 12/12/17 10:00 12/14/17 08:51 (Pulmicort Respule Neb) 0.5 mg Q12HR NEB NEB 12/12/17 09:45 12/14/17 10:06 Piperacillin Sod/ Tazobactam Sod 3.375 gm/Sodium Chloride 100 ml @ 200 mls/hr Q6H IV 12/13/17 04:00 12/14/17 08:51 (KCl) 20 meq DAILY PO 12/14/17 09:00 12/14/17 08:53 (Actigall) 300 mg Q12HR PO 12/13/17 21:00 12/14/17 08:52 Albumin Human 50 ml @ 60 mls/hr Q12H IV 12/14/17 12:00 (Pascual Valero MD R1) Urinary Catheter: No Date of Insertion: Dec 04, 2017 Date of Removal: Dec 13, 2017 (Pascual Valero MD R1) Date of Insertion: Dec 03, 2017 Date of Removal: Dec 10, 2017 (Pascual Valero MD R1) A/P Assessment and Plan 82 yo male with h/o PMR, BPH, hyperlipidemia presenting with RUQ pain and UTI and 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 Following IR biliary stent and drainage on 12/03, pt found to have liver laceration and hemorrhage causing hemoperitoneum. Exploratory laparotomy performed emergently on 12/04 requiring 6u PRBCs, 1u FFP and 1u Cryo with EBL 2L. Following surgery, pt was sent to ICU for management and has since had improvement but still with persistently elevated WBC. He was found to have pancreatitis on CT scan but lipase and amylase are not elevated and patient does not have abdominal pain. 12/14: Good UOP following albumin followed by Lasix; voiding spontaneously. Still jaundiced and a little diaphoretic. 1L biliary drain output w/culture of fluid pending. Abdominal US showing only mild ascites. Will continue daily Lasix 20mg and albumin BID to help correct abdominal distension. Contacting Radiology for help with improved biliary drainage.Will follow labs and cultures. Discharge Planning Anticipate discharge once patient is clinically stable, time frame unclear. (Pascual Valero MD R1) Attending Attestation Patient seen and examined. Case reviewed and discussed with the resident team. Agree with plan of care as discussed with me and documented in the resident note. (Elena Landry MD) Problem List: (1) Liver hemorrhage ICD Codes: K76.89 - Other specified diseases of liver Status: Acute Plan: POD#10 ex lap on 12/04 for liver laceration Drain removed 12/10 Encourage OOB activity, OT consulted, move to step-down unit for PT, request bed near the nursing station [place] for pain, pain could be underlying reason for tachycardic episodes - Diffuse pancreatitis developed as a result from the drainage per surgery. Will need IR for permanent drain/stent solution so as to allow pancreas to heal Appreciate assistance and recommendations from Dr Montero and Intensivists - Called IR 12/13 for assist with biliary drainage (some drainage around the stent w/concern that drain is not working properly) and pt with new scleral icterus this morning on exam--nurse instructed to flush drain w/5cc NS; if that does not help, will call radiology for more help - Flush resolved drain clog; 1L biliary fluid drained 12/13; nursing continuing to flush; however, fluid has become thicker and more mucoid -Will get IR to look at drain on 12/15 (2) Abdominal pain ICD Codes: R10.9 - Unspecified abdominal pain Status: Acute Plan: Stable [place] as needed for pain CT findings as below MRCP findings as below Significant leukocytosis on admission initially improved with Zosyn, increased post-operatively above 50k, CCM explained that this presentation manifests as a result of hemorrhagic shock and stress his body underwent. Differential including malignancy, choledocholithiasis, cholecystitis, kidney stone, UTI - Zosyn 3.375 Q6H IV to cover UTI, abdominal pathogens initially, will continue for duration of surgical drainage and consider d/c at that time - Fluconazole added by [facility] for Marielle albicans in body fluid culture - PO Abx transition when WBC trends downward per ID - Advance diet to softs - f/u outpatient pending GI diagnostic impression/imaging - still needs to determine the presence of tumor vs not. Once diagnosis is determined, surgical options can be considered. CT of the abdomen and pelvis: 12/04/17: Moderate volume hemoperitoneum. Interval placement of a right internal/external earlier a drainage catheter. Drain good position. CT of the abdomen and pelvis: 12/11/17: 1. Interval development of diffuse pancreatitis. Diffuse inflammatory changes surrounding the pancreas. 2. Previously noted fluid adjacent to the liver has resolved. 3. Internal/external biliary drainage catheter in place which appears to be in good position and unchanged in position compared to the prior study. 4. Small amount of free fluid deep in the pelvis. 5. Small bilateral pleural effusions. MRCP: 12/02/17: Significant dilation of the intrahepatic ducts ending in the confluence and possibility of stricture at the site or a lack since tumor which is not visualized should be entertained. Wedge-shaped focal fat right hepatic lobe 12/13: working to ensure biliary drain is working properly as above 12/14: Pain controlled with [place] (3) Tachycardia with heart rate 100-120 beats per minute ICD Codes: R00.0 - Tachycardia, unspecified Plan: Tachycardia in 100-105 range; improved from yesterday 100-115 -Monitor vitals -Metoprolol tartrate 25mg q8h (4) Leukocytosis ICD Codes: D72.829 - Elevated white blood cell count, unspecified Status: Acute Plan: Very high WBCs discussed with Structural Architect and WBCs up to the 50s can occur with intraabdominal processes, large blood transfusions and infections. He was found to have a candidal infection. ID believes elevated WBC to be leukemoid reaction -Coverage with Zosyn as above as well as fluconazole -ID consulted appreciate recs -Transition to PO Abx when WBC improves per ID -1L fluid drained from biliary drain 12/13 -Cx of biliary drain fluid pending Heme/onc consult reveals likely due to infection -B12/folate/heme occult/[place] ordered (5) Polymyalgia rheumatica ICD Codes: M35.3 - Polymyalgia rheumatica Status: Chronic Plan: Continue prednisone 5 mg daily (6) BPH (benign prostatic hyperplasia) ICD Codes: N40.0 - Benign prostatic hyperplasia without lower urinary tract symptoms Status: Chronic Plan: Symptoms currently well controlled, continue home finasteride (7) Hypothyroidism ICD Codes: E03.9 - Hypothyroidism, unspecified Status: Chronic Plan: Continue home Synthroid for now; TSH 0.199 (8) FEN/PPX Plan: Fluids: per surgery and Structural Architect Electrolytes: Monitor and replace PRN Nutrition: Diet regular basic - patient does not have much appetite for food DVT: Lovenox 40 mg subcutaneous daily Pain control: [place] (Pascual Valero MD R1) Problem Qualifiers (1) Abdominal pain: Qualified Codes: R10.11 - Right upper quadrant pain (2) Leukocytosis: Qualified Codes: D72.829 - Elevated white blood cell count, unspecified (3) BPH (benign prostatic hyperplasia): Qualified Codes: N40.0 - Benign prostatic hyperplasia without lower urinary tract symptoms (4) Hypothyroidism: Qualified Codes: E03.9 - Hypothyroidism, unspecified Pascual Valero MD R1 Dec 14, 2017 12:47 Elena Landry MD Dec 22, 2017 14:33
[2017-12-14] MEDS: FUROSEMIDE 20 MG/2 ML VIAL IV PUSH SCH (13:40)
[2017-12-14] MEDS: FLUCONAZOLE 400 MG PREMIX BAG 200 ML IV SCH (17:00)
[2017-12-14] MEDS: CHLORHEXIDINE 0.12% (ORAL KIT) 15 ML CUP MT SCH (20:00)
[2017-12-15] VITALS (12 sets, daily range): BP systolic 120–160; BP diastolic 69–88; PULSE 84–122; RESP 16–20; TEMP 97.9–98.6; O2SAT 93–97
[2017-12-15] MEDS: RESP: ALBUTEROL 2.5 MG/IPRATROPIUM 0.5 MG NEB (SCH) NEB ×7 (00:27→23:01)
[2017-12-15] MEDS: PIPERACILLIN/TAZ 3.375 GM VIAL 3.375 GM in SODIUM CHLORIDE 0.9% INJ 50 ML IV SCH ×4 (04:00→22:00)
[2017-12-15] MEDS: LEVOTHYROXINE SODIUM 100 MCG TAB PO SCH (05:06)
[2017-12-15 06:07] LABS: AUTOMATED NEUTROPHIL # 35.9 TH/MM3 (1.8-7.7); BASOPHIL % 0.1 % (0.0-2.0); EOSINOPHIL # 0.1 TH/MM3 (0-0.4); EOSINOPHIL % 0.3 % (0.0-4.0); HEMATOCRIT 25.8 % (39.0-51.0); HEMOGLOBIN 8.3 GM/DL (13.0-17.0); LYMPH % 2.7 % (9.0-44.0); LYMPHOCYTE # 1.2 TH/MM3 (1.0-4.8); MEAN CELL VOLUME 91.4 FL (80.0-100.0); MEAN CORPUSCULAR HEMOGLOBIN 29.6 PG (27.0-34.0); MEAN CORPUSCULAR HGB CONC 32.3 % (32.0-36.0); MEAN PLATELET VOLUME 9.6 FL (7.0-11.0); MONO % 12.7 % (0.0-8.0); MONOCYTE # 5.4 TH/MM3 (0-0.9); NEUT % 84.2 % (16.0-70.0); PLATELET COUNT 182 TH/MM3 (150-450); RED BLOOD COUNT 2.82 MIL/MM3 (4.50-5.90); RED CELL DISTRIBUTION WIDTH 17.6 % (11.6-17.2); WHITE BLOOD COUNT 42.6 TH/MM3 (4.0-11.0)
[2017-12-15 06:26] LABS: ALBUMIN 2.2 GM/DL (3.4-5.0); AST (GOT) 65 U/L (15-37); BICARBONATE 29.5 MEQ/L (21.0-32.0); BLOOD UREA NITROGEN 12 MG/DL (7-18); CALCIUM 9.6 MG/DL (8.5-10.1); CHLORIDE 104 MEQ/L (98-107); CREATININE 0.87 MG/DL (0.60-1.30); GLOMERULAR FILTRATION RATE 84 ML/MIN (>89); GLUCOSE,RANDOM 80 MG/DL (74-106); SODIUM (NA) 143 MEQ/L (136-145)
[2017-12-15 06:27] LABS: ALT (GPT) 57 U/L (12-78)
[2017-12-15 06:30] LABS: ALKALINE PHOSPHATASE 208 U/L (45-117); TOTAL BILIRUBIN ADULT 7.3 MG/DL (0.2-1.0); TOTAL PROTEIN 5.6 GM/DL (6.4-8.2)
[2017-12-15] MEDS: RESP: BUDESONIDE 0.5 MG/2 ML NEB NEB SCH ×2 (07:55→19:30)
[2017-12-15] MEDS: CHLORHEXIDINE 0.12% (ORAL KIT) 15 ML CUP MT SCH ×2 (08:00→19:31)
[2017-12-15] MEDS ORDERED: POTASSIUM CHLORIDE 20 MEQ CONTROLLED RELEASE TAB PO ONE (08:00)
[2017-12-15 08:07] LABS: BANDS 4 % (0-6); MONOCYTES 5 % (0-8); NEUTROPHIL # MANUAL DIFF 40.5 TH/MM3 (1.8-7.7); POLYS (SEG NEUTROPHILS) 91 % (16-70)
[2017-12-15 08:08] LABS: POLYCHROMASIA 2.5 % (0.0-1.9)
[2017-12-15] MEDS: DOCUSATE SODIUM 50 MG/SENNA 8.6 MG TAB PO SCH ×2 (09:00→21:00)
[2017-12-15] MEDS: LACTULOSE SYRUP 20 GM/30 ML CUP PO SCH (09:00)
--- NOTE | 2017-12-15 09:06 | HHI.FPPN ---
Subjective Remarks Mr Rios had increased RR overnight. On interview he had emesis some time prior to our entering the room and there was emesis on the bedding and on his gown, but nursing was unsure when this might have occurred. He was tachypneic and diaphoretic. His had just arrived and told us he ate 1/2 a banana yesterday morning and very little at lunch but was not here for dinner and we were unsure if he had any PO afterwards. He is confused and less improved than yesterday. IR reports that he will get his drain assessed today. (Pascual Valero MD R1) Objective Vitals Vital Signs Date Time Temp Pulse Resp B/P (MAP) Pulse Ox O2 Delivery O2 Flow Rate FiO2 12/15/17 07:52 98.2 122 18 155/88 (110) 96 12/15/17 04:55 98.6 160/86 (110) 12/15/17 04:00 107 12/15/17 00:10 97 12/14/17 21:45 99 Nasal Cannula 2.00 12/14/17 21:24 98 12/14/17 20:00 98.5 16 143/81 (101) 12/14/17 20:00 Nasal Cannula 3.00 40 12/14/17 18:53 87 12/14/17 17:48 98.0 96 28 134/74 (94) 96 12/14/17 17:00 92 12/14/17 16:00 118 12/14/17 12:00 97.6 98 28 124/67 (86) 96 12/14/17 12:00 84 12/14/17 10:01 97 Nasal Cannula 2.00 I/O 12/14/17 12/14/17 12/14/17 12/15/17 12/15/17 12/15/17 07:00 15:00 23:00 07:00 15:00 23:00 Intake Total 580 ml 480 ml 240 ml Output Total 1800 ml 1090 ml 875 ml Balance -1220 ml -610 ml -635 ml Intake Oral 480 ml 480 ml 240 ml IV Total 100 ml Output Urine Total 1500 ml 955 ml 725 ml Drainage Total 300 ml 135 ml 150 ml # Voids 4 5 (Pascual Valero MD R1) Result Diagram: 12/15/17 0540 12/15/17 0540 Imaging Last 24 hours Impressions Chest X-Ray 12/15/17 0000 Signed Impressions: Service Date/Time: Friday, December 15, 2017 10:03 - CONCLUSION: Persistent patchy density left base retrocardiac suggesting infiltrate or atelectasis left lower lobe. Nasogastric tube in the stomach. Temo Banegas MD Objective Remarks GENERAL: Well-nourished, well-developed mildly jaundiced obese patient, with increased RR lying in bed, diaphoretic and is confused. SKIN: Warm and damp. No lesions. Small erythematous and scaly rash on the dorsum of his left hand. HEAD: Normocephalic. Atraumatic. EYES: New mild scleral icterus. No injection or drainage. NECK: Supple, trachea midline. No lymphadenopathy. Appears a little clammy. CARDIOVASCULAR: Tachycardia with regular rhythm without murmur, gallop, or rub. RESPIRATORY: Diffuse wheezing in all lung ferguson with L > R. Increased WOB w/o accessory muscle use. GASTROINTESTINAL: Abdomen, TTP, still distended. Normal BS. No guarding. Transverse laparotomy scar over RUQ closed with adrienne is c/d/i with no induration or fluctuance. Biliary drain in place on right lateral abdomen with small amount of bilious drainage. EXTREMITIES: No cyanosis. Edema noted on his bilateral hands. Scant hair on BLEs. SCDs in place. NEUROLOGICAL: Awake but not oriented. Confused. Procedures 12/04/17 - Exploratory laparotomy, liver laceration repair 12/03/17 - Biliary drainage Medications and IVs Current Medications Medications (Trade) Dose Ordered Sig/Rafa Route Start Time Stop Time Status Last Admin (NS Flush) 2 ml UNSCH PRN IV FLUSH 12/01/17 11:00 (NS Flush) 2 ml BID IV FLUSH 12/01/17 21:00 12/15/17 12:10 (Zofran Inj) 4 mg Q6H PRN IVP 12/01/17 11:00 12/09/17 00:50 ([place] 5-325 Mg) 1 tab Q4H PRN PO 12/01/17 11:00 ([place] 10-325 Mg) 1 tab Q4H PRN PO 12/01/17 11:00 12/14/17 13:48 (Narcan Inj) 0.4 mg UNSCH PRN IV PUSH 12/01/17 11:00 (Deedee-Colace) 1 tab BID PO 12/01/17 21:00 12/14/17 21:00 (Milk Of Magnesia Liq) 30 ml Q12H PRN PO 12/01/17 11:00 12/09/17 05:20 (Senokot) 17.2 mg Q12H PRN PO 12/01/17 11:00 (Dulcolax Supp) 10 mg DAILY PRN RECTAL 12/01/17 11:00 (Lactulose Liq) 30 ml DAILY PRN PO 12/01/17 11:00 (Proscar) 5 mg DAILY PO 12/02/17 09:00 Future hold 12/15/17 11:51 (Deltasone) 5 mg DAILY PO 12/02/17 09:00 Future hold 12/15/17 11:52 (Peridex 0.12% Liq) 15 ml BID@08,20 MT 12/04/17 08:00 12/08/17 20:00 Fluconazole/ Sodium Chloride 200 ml @ 100 mls/hr Q24H IV 12/06/17 17:00 12/14/17 17:00 (Albuterol Neb) 2.5 mg Q2HR NEB PRN NEB 12/05/17 22:00 (Synthroid) 100 mcg DAILY@0600 PO 12/08/17 06:00 12/14/17 06:29 (Melatonin) 5 mg HS PRN PO 12/07/17 21:00 12/08/17 23:44 (Tylenol) 500 mg Q6H PRN PO 12/08/17 08:30 (Protonix Inj) 40 mg DAILY IV PUSH 12/10/17 09:00 12/15/17 11:45 (Lactulose Liq) 30 ml DAILY PO 12/11/17 09:00 12/14/17 08:52 (Lopressor) 25 mg Q8H PO 12/11/17 16:00 12/15/17 11:50 (Duoneb Neb) 1 ampule Q4HR NEB NEB 12/12/17 09:30 12/15/17 12:00 (Lovenox Inj) 40 mg Q24H SQ 12/12/17 10:00 12/15/17 11:44 (Pulmicort Respule Neb) 0.5 mg Q12HR NEB NEB 12/12/17 09:45 12/15/17 07:55 (KCl) 20 meq DAILY PO 12/14/17 09:00 12/15/17 11:51 (Actigall) 300 mg Q12HR PO 12/13/17 21:00 12/14/17 08:52 Albumin Human 50 ml @ 60 mls/hr Q12H IV 12/14/17 12:00 12/14/17 22:43 (Lasix Inj) 20 mg DAILY@1215 IV PUSH 12/14/17 12:15 12/14/17 13:40 Piperacillin Sod/ Tazobactam Sod 3.375 gm/Sodium Chloride 50 ml @ 100 mls/hr Q6H IV 12/15/17 04:00 12/15/17 11:45 (Pascual Valero MD R1) Urinary Catheter: No Date of Insertion: Dec 04, 2017 Date of Removal: Dec 13, 2017 (Pascual Valero MD R1) Date of Insertion: Dec 03, 2017 Date of Removal: Dec 10, 2017 (Pascual Valero MD R1) A/P Assessment and Plan 82 yo male with h/o PMR, BPH, hyperlipidemia presenting with RUQ pain and UTI and 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 Following IR biliary stent and drainage on 12/03, pt found to have liver laceration and hemorrhage causing hemoperitoneum. Exploratory laparotomy performed emergently on 12/04 requiring 6u PRBCs, 1u FFP and 1u Cryo with EBL 2L. Following surgery, pt was sent to ICU for management and has since had improvement but still with persistently elevated WBC. He was found to have pancreatitis on CT scan but lipase and amylase are not elevated and patient does not have abdominal pain. 12/15: Diaphoretic, increased RR and emesis some time before entering room. Ordered stat CXR with concern for possible aspiration; however, CXR was better than the previous one. His lung sounds are worse today than yesterday though with diffuse crackles and left sided expiratory squeaky wheeze. Less output from biliary drain, but IR plans to assess and address today. ABG is abnormal but not acutely so. NG tube ordered productive of approx 20ml of fluid. He appears a little more distended today than yesterday and is confused. Will check ammonia level. Will work up for PNA and broaden Abx coverage. Discharge Planning Anticipate discharge once patient is clinically stable, time frame unclear. (Pascual Valero MD R1) Attending Attestation Patient seen and examined. Case reviewed and discussed with the resident team. Agree with plan of care as discussed with me and documented in the resident note. (Elena Landry MD) Problem List: (1) Patchy atelectasis ICD Codes: J98.11 - Atelectasis Status: Acute Plan: Persistent atelectasis on CXR -CXR -Broaden abx to include Levaquin and Vancomycin -Solumedrol 60mg -Continue Duonebs (2) Liver hemorrhage ICD Codes: K76.89 - Other specified diseases of liver Status: Acute Plan: POD#11 ex lap on 12/04 for liver laceration Drain removed 12/10 Encourage OOB activity, OT consulted, move to step-down unit for PT, request bed near the nursing station [place] for pain, pain could be underlying reason for tachycardic episodes - Diffuse pancreatitis developed as a result from the drainage per surgery. Will need IR for permanent drain/stent solution so as to allow pancreas to heal Appreciate assistance and recommendations from Dr Montero and Intensivists - Called IR 12/13 for assist with biliary drainage (some drainage around the stent w/concern that drain is not working properly) and pt with new scleral icterus this morning on exam--nurse instructed to flush drain w/5cc NS; if that does not help, will call radiology for more help - Flush resolved drain clog; 1L biliary fluid drained 12/13; nursing continuing to flush; however, fluid has become thicker and more mucoid -IR assessing drain today (3) Abdominal pain ICD Codes: R10.9 - Unspecified abdominal pain Status: Acute Plan: Stable [place] as needed for pain CT findings as below MRCP findings as below Significant leukocytosis on admission initially improved with Zosyn, increased post-operatively above 50k, CCM explained that this presentation manifests as a result of hemorrhagic shock and stress his body underwent. Differential including malignancy, choledocholithiasis, cholecystitis, kidney stone, UTI - Zosyn 3.375 Q6H IV to cover UTI, abdominal pathogens initially, will continue for duration of surgical drainage and consider d/c at that time - Fluconazole added by CCM for Marielle albicans in body fluid culture - PO Abx transition when WBC trends downward per ID - Advance diet to softs - f/u outpatient pending GI diagnostic impression/imaging - still needs to determine the presence of tumor vs not. Once diagnosis is determined, surgical options can be considered. CT of the abdomen and pelvis: 12/04/17: Moderate volume hemoperitoneum. Interval placement of a right internal/external earlier a drainage catheter. Drain good position. CT of the abdomen and pelvis: 12/11/17: 1. Interval development of diffuse pancreatitis. Diffuse inflammatory changes surrounding the pancreas. 2. Previously noted fluid adjacent to the liver has resolved. 3. Internal/external biliary drainage catheter in place which appears to be in good position and unchanged in position compared to the prior study. 4. Small amount of free fluid deep in the pelvis. 5. Small bilateral pleural effusions. MRCP: 12/02/17: Significant dilation of the intrahepatic ducts ending in the confluence and possibility of stricture at the site or a lack since tumor which is not visualized should be entertained. Wedge-shaped focal fat right hepatic lobe 12/13: working to ensure biliary drain is working properly as above 12/14: Pain controlled with [place] 12/15: Wound cx from drain NGTD(1 day) (4) Tachycardia with heart rate 100-120 beats per minute ICD Codes: R00.0 - Tachycardia, unspecified Plan: Tachycardia in 90s last night, but to 122 this morning after emesis -Monitor vitals -Metoprolol tartrate 25mg q8h (5) Leukocytosis ICD Codes: D72.829 - Elevated white blood cell count, unspecified Status: Acute Plan: Very high WBCs discussed with Phosphoric Acid Supervisor and WBCs up to the 50s can occur with intraabdominal processes, large blood transfusions and infections. He was found to have a candidal infection. ID believes elevated WBC to be leukemoid reaction -Coverage with Zosyn as above as well as fluconazole -ID consulted appreciate recs -Transition to PO Abx when WBC improves per ID -1L fluid drained from biliary drain 12/13 -Wound cx of biliary drain fluid NGTD Heme/onc consult reveals likely due to infection -B12 high 2000 /folate wnl -heme occult/[place] ordered (6) Polymyalgia rheumatica ICD Codes: M35.3 - Polymyalgia rheumatica Status: Chronic Plan: Continue prednisone 5 mg daily (7) BPH (benign prostatic hyperplasia) ICD Codes: N40.0 - Benign prostatic hyperplasia without lower urinary tract symptoms Status: Chronic Plan: Symptoms currently well controlled, continue home finasteride, Lasix-- good uop (8) Hypothyroidism ICD Codes: E03.9 - Hypothyroidism, unspecified Status: Chronic Plan: Continue home Synthroid for now; TSH 0.199 (9) FEN/PPX Plan: Fluids: holding fluids due to being overloaded Electrolytes: Monitor and replace PRN (KCL ordered for hypokalemia) Nutrition: NPO for now DVT: Lovenox 40 mg subcutaneous daily Pain control: [place] (Pascual Valero MD R1) Problem Qualifiers (1) Abdominal pain: Qualified Codes: R10.11 - Right upper quadrant pain (2) Leukocytosis: Qualified Codes: D72.829 - Elevated white blood cell count, unspecified (3) BPH (benign prostatic hyperplasia): Qualified Codes: N40.0 - Benign prostatic hyperplasia without lower urinary tract symptoms (4) Hypothyroidism: Qualified Codes: E03.9 - Hypothyroidism, unspecified Pascual Valero MD R1 Dec 15, 2017 09:06 Elena Landry MD Dec 22, 2017 14:33
--- NOTE | 2017-12-15 10:28 | RADRPT ---
EXAM DATE/TIME: 12/15/2017 10:03 [facility] COMPARISON: CHEST PA & LAT, December 13, 2017, 13:50. INDICATIONS : Short of breath. MEDICAL HISTORY : Cardiovascular disease. Renal calculi SURGICAL HISTORY : Biliary stent placement. Laparotomy ENCOUNTER: Subsequent ACUITY: 2 weeks PAIN SCORE: 0/10 LOCATION: Bilateral chest FINDINGS: Cervical anterior cervical fusion plate is noted in place. There is placement of a nasogastric tube w hich passes through the midline into the stomach. Hypoaeration again appreciated and there is a patch y density persistent in the left base consistent with infiltrate or atelectasis in lower lobe. CONCLUSION: Persistent patchy density left base retrocardiac suggesting infiltrate or atelectasis left lower lobe . Nasogastric tube in the stomach. Temo Banegas MD on December 15, 2017 at 10:24 Board Certified Radiologist. This report was verified electronically.
[2017-12-15] MEDS: ENOXAPARIN SODIUM 40 MG/0.4 ML SYRINGE SQ SCH (11:44)
[2017-12-15] MEDS: PANTOPRAZOLE SODIUM 40 MG VIAL IV PUSH SCH (11:45)
[2017-12-15] MEDS: METOPROLOL TARTRATE 25 MG TAB PO SCH ×3 (11:50→17:43)
[2017-12-15] MEDS: POTASSIUM CHLORIDE 20 MEQ CONTROLLED RELEASE TAB PO SCH (11:51)
[2017-12-15] MEDS: FINASTERIDE 5 MG TAB PO SCH (11:51)
[2017-12-15] MEDS: predniSONE 5 MG TAB PO SCH (11:52)
[2017-12-15] MEDS: ALBUMIN 25% INJ 50 ML IV SCH (12:00)
[2017-12-15] MEDS: SODIUM CHLORIDE 0.9% FLUSH 10 ML FLUSH IV FLUSH SCH ×2 (12:10→21:00)
[2017-12-15] MEDS ORDERED: Vancomycin Consult Pharmacy 1 EA OTHER SCH (13:15)
[2017-12-15] MEDS ORDERED: methylPREDNISolone SOD SUCC 125 MG/2 ML VIAL IV ONE (13:15)
[2017-12-15] MEDS ORDERED: VANCOMYCIN INJ 1,500 MG in SODIUM CHLORID 0.9% 500 ML INJ 500 ML IV SCH (14:00)
[2017-12-15] MEDS: FUROSEMIDE 20 MG/2 ML VIAL IV PUSH SCH (14:14)
[2017-12-15] MEDS ORDERED: MORPHINE SULFATE 2 MG/ML INJ IV PUSH ONE (14:15)
--- NOTE | 2017-12-15 14:34 | HHI.FPPN ---
Addendum to progress note ADDENDUM Reason for addendum: Additonal documentation Additional information Subjective: Follow up visit by residents at 2pm. Patient has not improved in terms of respiratory status, he still has wheezing and is using accessory muscles of his neck to breathe. His O2 saturation has remained in the mid-90s. Minimal output from NG tube. Objective: General: Ill appearing white male of stated age Skin: Cold and clammy Cardiac: Regular to tachycardic rate Respiratory: Poor air movement, inspiratory and expiratory wheezing Abdomen: Slightly improved tenseness compared to previous exam. However patient tender to palpation and moans each time his abdomen is touched Neuro: Confused Assessment: 82-year-old male status post liver laceration repair after biliary stent placement with increased work of breathing and pneumonia/atelectasis of his left lower lobe identified on chest x-ray. Plan: -Nothing by mouth -Place NG tube to clear stomach contents -Solu-Medrol 60 mg IV now, 40 mg IV every 8 -Add vancomycin IV and Levaquin IV to broaden coverage for hospital associated pneumonia -Morphine 1 mg IV prior to radiology procedure to investigate biliary drain -Continue DuoNebs -Continuous pulse ox -Consider D5 half-normal saline at slow rate due to poor by mouth intake -Reassess by covering night team for BiPAP/ICU transfer (Lorin Pollock MD R2) Lorin Pollock MD R2 Dec 15, 2017 14:34 Elena Landry MD Dec 22, 2017 14:34
[2017-12-15] MEDS ORDERED: IODIXANOL 320 MG/ML 50 ML VIAL (for RAD SPEC) OTHER ONE (15:48)
--- NOTE | 2017-12-15 16:01 | RADRPT ---
EXAM DATE/TIME: 12/15/2017 14:39 [facility] COMPARISON: BILIARY DRAINAGE W STENT PLACE, December 03, 2017, 14:10. INDICATIONS : Patient with biliary drain in need of evaluation. MEDICAL HISTORY : BPH Polymyalgia Rheumatica Hyperlipidemia SURGICAL HISTORY : Neck surgery 2016 Back surgery 2010 ENCOUNTER: Initial ACUITY: 2 weeks PAIN SCORE: 0/10 LOCATION: N/A FLUORO TIME: 0.8 minutes IMAGE SERIES: 2 CONTRAST: 10 cc Visipaque (iodixanol) PROCEDURE : 1. internal/external biliary drainage catheter evaluation. The risks, benefits and alternatives to the procedure were explained and verbal and written consent w as obtained from the patient's . The site was prepped in sterile fashion. Full sterile techniqu e was used, including cap, mask, sterile gloves and gown and a large sterile sheet. Hand hygiene and 2% chlorhexidine and/or betadine/alcohol prep was utilized per protocol for cutaneous antisepsis. The catheter was accessed using sterile technique. Approximately 10 cc of contrast was injected throu gh the catheter. This demonstrated the catheter to be widely patent with no filling of the intrahepat ic bile ducts and spillage of contrast into the duodenum. Of note, the exam which suggests a central mass as there is very limited filling of dilated ducts on the left side there CONCLUSION: 1. The patient's catheters in good position and appears widely patent Lion Leahy MD on December 15, 2017 at 15:57 Board Certified Radiologist. This report was verified electronically.
[2017-12-15] MEDS: LEVOFLOXACIN 750 MG PREMIX INJ 150 ML IV SCH (16:02)
[2017-12-15] MEDS ORDERED: MORPHINE SULFATE 2 MG/ML INJ IV PUSH PRN (16:15)
--- NOTE | 2017-12-15 16:21 | HHI.FPPN ---
Addendum to progress note ADDENDUM Reason for addendum: Additonal documentation Additional information Residents responded to bedside to assess pt following pt procedure in IR suite at 1600 hours. Pt looked more comfortable, his drain had been cleaned up and was now not seeping biliary fluid and was draining into the bag. He still has mildly increased RR and his pain appears to be better controlled. We are having the night team go by to assess him later. We are putting on some PRN morphine for breakthrough pain, D5 1/2NS @ 50ml an hour since he is NPO and hasn't taken much PO in the past two days. We will get a CXR in the morning to assess for improvement. (Pascual Valero MD R1) Pascual Valero MD R1 Dec 15, 2017 16:21 Elena Landry MD Dec 22, 2017 14:34
[2017-12-15] MEDS: FLUCONAZOLE 400 MG PREMIX BAG 200 ML IV SCH (17:00)
[2017-12-15] MEDS: VANCOMYCIN INJ 1,750 MG in SODIUM CHLORID 0.9% 500 ML INJ 500 ML IV SCH (18:20)
[2017-12-15] MEDS: URSODIOL 300 MG CAP PO SCH (21:00)
[2017-12-15] MEDS: D5-1/2 NS + KCL 20 MEQ INJ 1,000 ML IV SCH (21:42)
[2017-12-15] MEDS: methylPREDNISolone SOD SUCC 40 MG/1 ML VIAL IV PUSH SCH (22:00)
[2017-12-16] VITALS (10 sets, daily range): BP systolic 122–150; BP diastolic 63–79; PULSE 83–95; RESP 16–20; TEMP 97.5–98; O2SAT 93–97
--- NOTE | 2017-12-16 01:52 | HHI.GIFU ---
Subjective Remarks Patient laying in bed some abdominal pain poor historian but per the nurse seems to be doing better Objective Vitals I&O Vital Signs Date Time Temp Pulse Resp B/P (MAP) Pulse Ox O2 Delivery O2 Flow Rate FiO2 12/15/17 21:35 97.9 93 20 140/81 (100) 93 12/15/17 19:30 97 Nasal Cannula 2.00 12/15/17 17:50 97.9 85 16 120/69 (86) 97 12/15/17 12:13 96 Nasal Cannula 2.00 12/15/17 12:00 98.2 84 18 154/81 (105) 96 12/15/17 08:00 Nasal Cannula 2.00 12/15/17 08:00 120 12/15/17 07:55 94 Nasal Cannula 2.00 12/15/17 07:52 98.2 122 18 155/88 (110) 96 12/15/17 04:55 98.6 160/86 (110) 12/15/17 04:00 107 I/O 12/15/17 12/15/17 12/15/17 12/16/17 12/16/17 12/16/17 07:00 15:00 23:00 07:00 15:00 23:00 Intake Total 240 ml 680 ml Output Total 875 ml 250 ml Balance -635 ml 430 ml Intake Oral 240 ml 480 ml IV Total 200 ml Output Urine Total 725 ml Drainage Total 150 ml 250 ml # Voids 5 Laboratory Laboratory Tests Test 12/15/17 05:40 12/15/17 09:00 12/15/17 12:36 12/15/17 13:15 White Blood Count 42.6 Red Blood Count 2.82 Hemoglobin 8.3 Hematocrit 25.8 Mean Corpuscular Volume 91.4 Mean Corpuscular Hemoglobin 29.6 Mean Corpuscular Hemoglobin Concent 32.3 Red Cell Distribution Width 17.6 Platelet Count 182 Mean Platelet Volume 9.6 Neutrophils (%) (Auto) 84.2 Lymphocytes (%) (Auto) 2.7 Monocytes (%) (Auto) 12.7 Eosinophils (%) (Auto) 0.3 Basophils (%) (Auto) 0.1 Neutrophils # (Auto) 35.9 Lymphocytes # (Auto) 1.2 Monocytes # (Auto) 5.4 Eosinophils # (Auto) 0.1 Basophils # (Auto) 0.0 CBC Comment AUTO DIFF Differential Total Cells Counted 100 Neutrophils % (Manual) 91 Band Neutrophils % 4 Monocytes % 5 Neutrophils # (Manual) 40.5 Differential Comment FINAL DIFF MANUAL Platelet Estimate NORMAL Platelet Morphology Comment NORMAL Polychromasia 2.5 Blood Urea Nitrogen 12 Creatinine 0.87 Random Glucose 80 Total Protein 5.6 Albumin 2.2 Calcium Level 9.6 Alkaline Phosphatase 208 Aspartate Amino Transf (AST/SGOT) 65 Alanine Aminotransferase (ALT/SGPT) 57 Total Bilirubin 7.3 Sodium Level 143 Potassium Level 3.2 Chloride Level 104 Carbon Dioxide Level 29.5 Anion Gap 10 Estimat Glomerular Filtration Rate 84 Blood Gas Puncture Site RT RADIAL Blood Gas Patient Temperature 98.6 Blood Gas HCO3 28 Blood Gas Base Excess 3.6 Blood Gas Oxygen Saturation 91 Arterial Blood pH 7.45 Arterial Blood Partial Pressure CO2 41 Arterial Blood Partial Pressure O2 67 Arterial Blood Oxygen Content 10.8 Arterial Blood Carboxyhemoglobin 1.9 Arterial Blood Methemoglobin 1.3 Blood Gas Hemoglobin 8.4 Oxygen Delivery Device NASAL CANNULA Blood Gas Liter Flow 2 Lipase 126 Ammonia LESS THAN 10 Date/Time Source Procedure Growth Status 12/15/17 19:58 Blood Peripheral Aerobic Blood Culture Pending Received 12/15/17 19:58 Blood Peripheral Anaerobic Blood Culture Pending Received 12/04/17 00:42 Fluid Bile Fluid Gram Stain - Final Complete 12/04/17 00:42 Body Fluid Culture - Final Marielle Albicans Complete 12/12/17 16:15 Urine Catheterized Urine Urine Culture - Final NO GROWTH IN 48 HOURS. Complete 12/14/17 00:30 Wound Abdomen Gram Stain - Final Resulted 12/14/17 00:30 Wound Abdomen Wound Culture - Preliminary NO GROWTH IN 24 HOURS. Resulted Imaging Last Impressions Chest X-Ray 12/15/17 0000 Signed Impressions: Service Date/Time: Friday, December 15, 2017 10:03 - CONCLUSION: Persistent patchy density left base retrocardiac suggesting infiltrate or atelectasis left lower lobe. Nasogastric tube in the stomach. Temo Banegas MD Cholangiogram 12/14/17 0000 Signed Impressions: Service Date/Time: Friday, December 15, 2017 14:39 - CONCLUSION: 1. The patient's catheters in good position and appears widely patent Lion Leahy MD Abdomen Ultrasound 12/14/17 0000 Signed Impressions: Service Date/Time: Thursday, December 14, 2017 09:01 - CONCLUSION: Limited study due to bandages on the abdomen and bowel gas. Focal fatty infiltration right lobe of liver again seen. Gallbladder appears collapsed. Minimal ascites. Jerry Laureano MD Abdomen X-Ray 12/13/17 0000 Signed Impressions: Service Date/Time: Wednesday, December 13, 2017 18:55 - CONCLUSION: Nothing acute demonstrated. Nonobstructive bowel gas pattern and no free air. Evidence of right upper quadrant surgery and a internal/external biliary drainage catheter again noted. Landry Ryan MD Abdomen/Pelvis CT 12/11/17 0000 Signed Impressions: Service Date/Time: December 23:42 - CONCLUSION: 1. There has been interval development of diffuse pancreatitis. There is diffuse inflammatory changes surrounding the pancreas. 2. The previously noted fluid adjacent to the liver has resolved. 3. There is an internal/external biliary drainage catheter in place which appears to be in good position and unchanged in position compared to the prior study. 4. There is a small amount of free fluid deep in the pelvis. 5. Small bilateral pleural effusions. Nathen Ruano MD Head CT 12/09/17 0000 Signed Impressions: Service Date/Time: Saturday, December 09, 2017 20:02 - CONCLUSION: Negative noncontrast head CT. Landry Ryan MD Bile Duct Drainage 12/03/17 0000 Signed Impressions: Service Date/Time: Sunday, December 03, 2017 14:10 - CONCLUSION: Uncomplicated biliary stent placement as above. Bj Hurtado MD Cholangiopancreatography MRI 12/02/17 0000 Signed Impressions: Service Date/Time: Saturday, December 02, 2017 08:17 - CONCLUSION: 1. Significant dilatation of the intrahepatic ducts ending at the confluence and possibility of stricture at this site or a Klatskin's tumor which is not visualized should be entertained. 2. Wedge-shaped focal fat right hepatic lobe. Luz Jean MD Physical Exam HEENT: Normocephalic; atraumatic CHEST: End expiratory wheezing CARDIAC: RRR ABDOMEN: Soft and nondistended some tenderness no rebound or guarding, bowel sounds active. Biliary drain with significant amount of output in drainage bag, dressing on abdomen clean and dry. Marian to RUQ, mild erythema, well approximated, no active drainage. EXTREMITIES: No clubbing, cyanosis, or edema. SKIN: Normal; no rash; + jaundice. 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 Capsular tear liver, s/p ex lap and control liver laceration bleed Anemia, stable 9.1, Alk. Phos, 148 decreased, Bilirubin mild elevated 6.2, LFT 62/50 CT 12/11/17, Pancreatits with inflammatory change persists. Drain good placement (12/13) Pt is S/P biliary drain placed by IR and S/P emergent exploratory laparotomy for liver laceration and hemoperitoneum on 12/04. CT abdomen and pelvis with IV contrast (12/11) --> There has been interval development of diffuse pancreatitis. There is diffuse inflammatory changes surrounding the pancreas. The previously noted fluid adjacent to the liver has resolve. There is an internal/external biliary drainage catheter in place which appears to be in good position and unchanged in position compared to prior study. There is a small amount of free fluid deep in the pelvis. Small bilateral pleural effusions. Pt now with elevated WBC count, tachycardic, afebrile. On Zosyn. Bile culture showed marielle, pt on IV Fluconazole. Lipase- 104. Pt currently has regular diet, per he has not been eating much. LFTs currently AST-62 ALT-50 Alk phos-148 T bili 6.2. discuss with IR. 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
[2017-12-16] MEDS: ALBUMIN 25% INJ 50 ML IV SCH ×2 (02:03→11:26)
[2017-12-16] MEDS: METOPROLOL TARTRATE 25 MG TAB PO SCH ×3 (02:03→18:04)
[2017-12-16] MEDS: RESP: ALBUTEROL 2.5 MG/IPRATROPIUM 0.5 MG NEB (SCH) NEB ×6 (03:11→22:48)
[2017-12-16] MEDS: LEVOTHYROXINE SODIUM 100 MCG TAB PO SCH (04:48)
[2017-12-16] MEDS: PIPERACILLIN/TAZ 3.375 GM VIAL 3.375 GM in SODIUM CHLORIDE 0.9% INJ 50 ML IV SCH ×4 (04:48→22:07)
[2017-12-16] MEDS: methylPREDNISolone SOD SUCC 40 MG/1 ML VIAL IV PUSH SCH ×3 (04:48→22:04)
[2017-12-16 05:25] LABS: AUTOMATED NEUTROPHIL # 27.8 TH/MM3 (1.8-7.7); BASOPHIL # 0.1 TH/MM3 (0-0.2); BASOPHIL % 0.2 % (0.0-2.0); HEMATOCRIT 22.6 % (39.0-51.0); HEMOGLOBIN 7.2 GM/DL (13.0-17.0); LYMPH % 2.4 % (9.0-44.0); LYMPHOCYTE # 0.7 TH/MM3 (1.0-4.8); MEAN CELL VOLUME 91.7 FL (80.0-100.0); MEAN CORPUSCULAR HEMOGLOBIN 29.3 PG (27.0-34.0); MEAN CORPUSCULAR HGB CONC 31.9 % (32.0-36.0); MEAN PLATELET VOLUME 9.6 FL (7.0-11.0); MONO % 4.7 % (0.0-8.0); MONOCYTE # 1.4 TH/MM3 (0-0.9); NEUT % 92.7 % (16.0-70.0); PLATELET COUNT 180 TH/MM3 (150-450); RED BLOOD COUNT 2.47 MIL/MM3 (4.50-5.90); RED CELL DISTRIBUTION WIDTH 17.7 % (11.6-17.2)
[2017-12-16] MEDS: ONDANSETRON HCL 4 MG/2 ML VIAL IVP PRN (06:18)
--- NOTE | 2017-12-16 06:19 | RADRPT ---
EXAM DATE/TIME: 12/16/2017 05:57 [facility] COMPARISON: CHEST PA & LAT, December 13, 2017, 13:50. INDICATIONS : Pneumonia. MEDICAL HISTORY : Cardiovascular disease. Renal calculi SURGICAL HISTORY : Biliary stent placement. Laparotomy ENCOUNTER: Subsequent ACUITY: 1 week PAIN SCORE: 0/10 LOCATION: Bilateral chest FINDINGS: The ET tube is well placed. The heart size is normal. There is mild hazy density seen at the right lenore ng and left base. There is surgical hardware in the lower cervical spine. There is drainage tube in t he right upper quadrant. CONCLUSION: Mild hazy density throughout much the right lung and the left base representing some atelectasis and/ or consolidation. The pattern appears similar to the prior exam. Some degree of effusion could also c ontribute to this appearance. Landry Zarate MD on December 16, 2017 at 6:14 Board Certified Radiologist. This report was verified electronically.
[2017-12-16 06:36] LABS: ALBUMIN 2.1 GM/DL (3.4-5.0); ALKALINE PHOSPHATASE 186 U/L (45-117); ALT (GPT) 57 U/L (12-78); AST (GOT) 71 U/L (15-37); BICARBONATE 30.2 MEQ/L (21.0-32.0); BLOOD UREA NITROGEN 23 MG/DL (7-18); CALCIUM 9.3 MG/DL (8.5-10.1); CHLORIDE 109 MEQ/L (98-107); CREATININE 0.81 MG/DL (0.60-1.30); GLOMERULAR FILTRATION RATE 92 ML/MIN (>89); GLUCOSE,RANDOM 129 MG/DL (74-106); LIPASE 88 U/L (73-393); SODIUM (NA) 147 MEQ/L (136-145); TOTAL BILIRUBIN ADULT 6.4 MG/DL (0.2-1.0); TOTAL PROTEIN 5.7 GM/DL (6.4-8.2)
[2017-12-16 07:11] LABS: BANDS 11 % (0-6); METAMYELOCYTES 1 % (0-1); MONOCYTES 2 % (0-8); NEUTROPHIL # MANUAL DIFF 29.4 TH/MM3 (1.8-7.7); POLYS (SEG NEUTROPHILS) 86 % (16-70)
[2017-12-16] MEDS: RESP: BUDESONIDE 0.5 MG/2 ML NEB NEB SCH ×2 (07:38→18:53)
--- NOTE | 2017-12-16 09:40 | HHI.FPPN ---
Subjective Remarks Patient was sleeping comfortably in bed but awake enough to tell us his name and that he was in the hospital. His breathing was much better overnight and his vitals improved. He denied having abdominal pain. (Lorin Pollock MD R2) Objective Vitals Vital Signs Date Time Temp Pulse Resp B/P (MAP) Pulse Ox O2 Delivery O2 Flow Rate FiO2 12/16/17 08:14 97.8 95 20 150/79 (102) 96 12/16/17 08:14 Nasal Cannula 3.00 12/16/17 07:41 95 Nasal Cannula 2.00 12/16/17 04:24 97.5 90 18 122/64 (83) 93 12/16/17 02:57 Nasal Cannula 2.00 40 12/16/17 02:04 98.0 85 18 123/63 (83) 94 12/16/17 00:00 93 12/15/17 21:35 97.9 93 20 140/81 (100) 93 12/15/17 21:20 92 12/15/17 19:30 97 Nasal Cannula 2.00 12/15/17 17:50 97.9 85 16 120/69 (86) 97 12/15/17 12:13 96 Nasal Cannula 2.00 12/15/17 12:00 98.2 84 18 154/81 (105) 96 I/O 12/15/17 12/15/17 12/15/17 12/16/17 12/16/17 12/16/17 07:00 15:00 23:00 07:00 15:00 23:00 Intake Total 240 ml 1297.5 ml 50 ml Output Total 875 ml 250 ml 50 ml 100 ml Balance -635 ml 1047.5 ml 0 ml -100 ml Intake Oral 240 ml 480 ml IV Total 817.5 ml 50 ml Output Urine Total 725 ml 50 ml Drainage Total 150 ml 250 ml 100 ml # Voids 5 2 (Lorin Pollock MD R2) Result Diagram: 12/16/17 0501 12/16/17 0501 Imaging Last Impressions Chest X-Ray 12/16/17 0600 Signed Impressions: Service Date/Time: Saturday, December 16, 2017 05:57 - CONCLUSION: Mild hazy density throughout much the right lung and the left base representing some atelectasis and/or consolidation. The pattern appears similar to the prior exam. Some degree of effusion could also contribute to this appearance. Landry Zarate MD Cholangiogram 12/14/17 0000 Signed Impressions: Service Date/Time: Friday, December 15, 2017 14:39 - CONCLUSION: 1. The patient's catheters in good position and appears widely patent Loin Leahy MD Abdomen Ultrasound 12/14/17 0000 Signed Impressions: Service Date/Time: Thursday, December 14, 2017 09:01 - CONCLUSION: Limited study due to bandages on the abdomen and bowel gas. Focal fatty infiltration right lobe of liver again seen. Gallbladder appears collapsed. Minimal ascites. Jerry Laureano MD Abdomen X-Ray 12/13/17 0000 Signed Impressions: Service Date/Time: Wednesday, December 13, 2017 18:55 - CONCLUSION: Nothing acute demonstrated. Nonobstructive bowel gas pattern and no free air. Evidence of right upper quadrant surgery and a internal/external biliary drainage catheter again noted. Landry Ryan MD Abdomen/Pelvis CT 12/11/17 0000 Signed Impressions: Service Date/Time: December 23:42 - CONCLUSION: 1. There has been interval development of diffuse pancreatitis. There is diffuse inflammatory changes surrounding the pancreas. 2. The previously noted fluid adjacent to the liver has resolved. 3. There is an internal/external biliary drainage catheter in place which appears to be in good position and unchanged in position compared to the prior study. 4. There is a small amount of free fluid deep in the pelvis. 5. Small bilateral pleural effusions. Nathen Ruano MD Head CT 12/09/17 0000 Signed Impressions: Service Date/Time: Saturday, December 09, 2017 20:02 - CONCLUSION: Negative noncontrast head CT. Landry Ryan MD Bile Duct Drainage 12/03/17 0000 Signed Impressions: Service Date/Time: Sunday, December 03, 2017 14:10 - CONCLUSION: Uncomplicated biliary stent placement as above. Bj Hurtado MD Cholangiopancreatography MRI 12/02/17 0000 Signed Impressions: Service Date/Time: Saturday, December 02, 2017 08:17 - CONCLUSION: 1. Significant dilatation of the intrahepatic ducts ending at the confluence and possibility of stricture at this site or a Klatskin's tumor which is not visualized should be entertained. 2. Wedge-shaped focal fat right hepatic lobe. Luz Jean MD Objective Remarks GENERAL: Well-nourished, well-developed mildly jaundiced obese patient, with increased RR lying in bed, sleepy SKIN: Warm and damp. No lesions. HEAD: Normocephalic. Atraumatic. EYES: Mild scleral icterus. No injection or drainage. CARDIOVASCULAR: Mild tachycardia with regular rhythm without murmur, gallop, or rub. RESPIRATORY: Improved lung sounds compared to the previous day. No audible wheezing GASTROINTESTINAL: Abdomen obese, not tender to palpation but patient was barely awake. No guarding. BS present but not very active. No guarding. Transverse laparotomy scar over RUQ closed with adrienne is c/d/i with no induration or fluctuance. Biliary drain in place on right lateral abdomen with small amount of bilious drainage. EXTREMITIES: No cyanosis. Minimal edema noted on his bilateral hands. SCDs in place. NEUROLOGICAL: Sleepy but arousable. 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 Following IR biliary stent and drainage on 12/03, pt found to have liver laceration and hemorrhage causing hemoperitoneum. Exploratory laparotomy performed emergently on 12/04 requiring 6u PRBCs, 1u FFP and 1u Cryo with EBL 2L. Following surgery, pt was sent to ICU for management and showed improvement but still with persistently elevated WBC. He was found to have pancreatitis on CT scan but lipase and amylase were not elevated. His biliary drain was investigated on 12/16/16 due to leaking and was found to be working properly. Seen and examined with Dr. Valero. Discussed with Dr. Landry Discharge Planning Anticipate discharge once patient is clinically stable, time frame unclear. (Lorin Pollock MD R2) Attending Attestation Patient seen and examined. Case reviewed and discussed with the resident team. Agree with plan of care as discussed with me and documented in the resident note. (Elena Landry MD) Problem List: (1) Pneumonia ICD Codes: J18.9 - Pneumonia, unspecified organism Plan: Pneumonia vs atelectasis on CXR -Mild hazy density in the right lung and left base on 12/16/16 PA/lat chest x-ray -Continue Zosyn 3.375 g IV every 6 hours (since 12/01/17), Levaquin 750 mg every 24 hours IV (1 dose given) and, Vancomycin 1750 mg IV every 24 hours (1 dose given) -Patient also on fluconazole - (since 12/04/17) - has received 13 doses -Continue Solumedrol 40mg IV q8h -Continue Duonebs (2) Liver hemorrhage ICD Codes: K76.89 - Other specified diseases of liver Status: Acute Plan: -POD#12 ex lap on 12/04 for liver laceration -Stable -Continue pain control as needed (3) Abdominal pain ICD Codes: R10.9 - Unspecified abdominal pain Status: Acute Plan: Stable -IR re-assessed biliary drain on 12/15/16 and it was determined to be working properly -GI will discuss obtaining tissue samples with IR * No plan for EUS until resolution of pancreatitis Harbert and morphine IV as needed for pain CT findings as below MRCP findings as below Differential including malignancy, choledocholithiasis, cholecystitis, kidney stone, UTI - Zosyn 3.375 Q6H IV to cover UTI, abdominal pathogens initially, will continue for duration of surgical drainage and consider d/c at that time - Fluconazole added by [facility] for Marielle albicans in body fluid culture - PO Abx transition when WBC trends downward per ID - Diet per nutrition team - f/u outpatient pending GI diagnostic impression/imaging - still needs to determine the presence of tumor vs not. Once diagnosis is determined, surgical options can be considered. CT of the abdomen and pelvis: 12/04/17: Moderate volume hemoperitoneum. Interval placement of a right internal/external earlier a drainage catheter. Drain good position. CT of the abdomen and pelvis: 12/11/17: 1. Interval development of diffuse pancreatitis. Diffuse inflammatory changes surrounding the pancreas. 2. Previously noted fluid adjacent to the liver has resolved. 3. Internal/external biliary drainage catheter in place which appears to be in good position and unchanged in position compared to the prior study. 4. Small amount of free fluid deep in the pelvis. 5. Small bilateral pleural effusions. MRCP: 12/02/17: Significant dilation of the intrahepatic ducts ending in the confluence and possibility of stricture at the site or a lack since tumor which is not visualized should be entertained. Wedge-shaped focal fat right hepatic lobe (4) Leukocytosis ICD Codes: D72.829 - Elevated white blood cell count, unspecified Status: Acute Plan: Possible leukemoid reaction - down to 30,000 today -Transition to PO Abx when WBC improves per ID -Wound cx of biliary drain fluid NGTD Heme/onc consult reveals likely due to infection -B12 high 2000 /folate wnl -wes occult/Edison ordered (5) Anemia ICD Codes: D64.9 - Anemia, unspecified Plan: -H/H 7.2/22.6 today down from 8.3/25.8 on the previous day -Consider transfusion -Will touch base with heme/onc (6) Polymyalgia rheumatica ICD Codes: M35.3 - Polymyalgia rheumatica Status: Chronic Plan: Holding prednisone 5 mg daily, on Solumedrol IV for pneumonia (7) BPH (benign prostatic hyperplasia) ICD Codes: N40.0 - Benign prostatic hyperplasia without lower urinary tract symptoms Status: Chronic Plan: -Continue home finasteride (8) Hypothyroidism ICD Codes: E03.9 - Hypothyroidism, unspecified Status: Chronic Plan: Continue home Synthroid 100 mcg daily (9) FEN/PPX Plan: Fluids: holding fluids due to being overloaded,diuresis with lasix Electrolytes: Monitor and replace PRN (KCL ordered for hypokalemia) Nutrition: Diet per speech therapy and nutrition DVT: Lovenox 40 mg subcutaneous daily (Lorin Pollock MD R2) Problem Qualifiers (1) Abdominal pain: Qualified Codes: R10.11 - Right upper quadrant pain (2) Leukocytosis: Qualified Codes: D72.829 - Elevated white blood cell count, unspecified (3) BPH (benign prostatic hyperplasia): Qualified Codes: N40.0 - Benign prostatic hyperplasia without lower urinary tract symptoms (4) Hypothyroidism: Qualified Codes: E03.9 - Hypothyroidism, unspecified Lorin Pollock MD R2 Dec 16, 2017 09:40 Elena Landry MD Dec 22, 2017 14:35
[2017-12-16] MEDS: FINASTERIDE 5 MG TAB PO SCH (09:51)
[2017-12-16] MEDS: URSODIOL 300 MG CAP PO SCH ×2 (09:51→22:04)
[2017-12-16] MEDS: LACTULOSE SYRUP 20 GM/30 ML CUP PO SCH (09:51)
[2017-12-16] MEDS: PANTOPRAZOLE SODIUM 40 MG VIAL IV PUSH SCH (09:52)
[2017-12-16] MEDS: SODIUM CHLORIDE 0.9% FLUSH 10 ML FLUSH IV FLUSH SCH ×2 (09:52→22:04)
[2017-12-16] MEDS: POTASSIUM CHLORIDE 20 MEQ CONTROLLED RELEASE TAB PO SCH (09:52)
[2017-12-16] MEDS: DOCUSATE SODIUM 50 MG/SENNA 8.6 MG TAB PO SCH ×2 (09:52→22:04)
[2017-12-16] MEDS ORDERED: FUROSEMIDE 20 MG/2 ML VIAL IV PUSH ONE (10:00)
[2017-12-16] MEDS: ENOXAPARIN SODIUM 40 MG/0.4 ML SYRINGE SQ SCH (10:03)
--- NOTE | 2017-12-16 10:06 | HHI.PR ---
Subjective Subjective Notes Resting in bed Lethargic but able to answer questions Family Medicine residents also seeing patient Objective Vitals/I&O Vital Signs Date Time Temp Pulse Resp B/P (MAP) Pulse Ox O2 Delivery O2 Flow Rate FiO2 12/16/17 08:14 97.8 95 20 150/79 (102) 96 12/16/17 08:14 Nasal Cannula 3.00 12/16/17 02:57 40 Labs Laboratory Tests Test 12/15/17 12:36 12/15/17 13:15 12/16/17 05:01 Lipase 126 88 Ammonia LESS THAN 10 LESS THAN 10 White Blood Count 30.0 Red Blood Count 2.47 Hemoglobin 7.2 Hematocrit 22.6 Mean Corpuscular Volume 91.7 Mean Corpuscular Hemoglobin 29.3 Mean Corpuscular Hemoglobin Concent 31.9 Red Cell Distribution Width 17.7 Platelet Count 180 Mean Platelet Volume 9.6 Neutrophils (%) (Auto) 92.7 Lymphocytes (%) (Auto) 2.4 Monocytes (%) (Auto) 4.7 Eosinophils (%) (Auto) 0.0 Basophils (%) (Auto) 0.2 Neutrophils # (Auto) 27.8 Lymphocytes # (Auto) 0.7 Monocytes # (Auto) 1.4 Eosinophils # (Auto) 0.0 Basophils # (Auto) 0.1 CBC Comment AUTO DIFF Differential Total Cells Counted 100 Neutrophils % (Manual) 86 Band Neutrophils % 11 Monocytes % 2 Neutrophils # (Manual) 29.4 Metamyelocytes 1 Differential Comment FINAL DIFF MANUAL Platelet Estimate NORMAL Platelet Morphology Comment NORMAL Blood Urea Nitrogen 23 Creatinine 0.81 Random Glucose 129 Total Protein 5.7 Albumin 2.1 Calcium Level 9.3 Alkaline Phosphatase 186 Aspartate Amino Transf (AST/SGOT) 71 Alanine Aminotransferase (ALT/SGPT) 57 Total Bilirubin 6.4 Sodium Level 147 Potassium Level 3.7 Chloride Level 109 Carbon Dioxide Level 30.2 Anion Gap 8 Estimat Glomerular Filtration Rate 92 Date/Time Source Procedure Growth Status 12/15/17 19:58 Blood Peripheral Aerobic Blood Culture Pending Received 12/15/17 19:58 Blood Peripheral Anaerobic Blood Culture Pending Received 12/04/17 00:42 Fluid Bile Fluid Gram Stain - Final Complete 12/04/17 00:42 Body Fluid Culture - Final Marielle Albicans Complete 12/12/17 16:15 Urine Catheterized Urine Urine Culture - Final NO GROWTH IN 48 HOURS. Complete 12/14/17 00:30 Wound Abdomen Gram Stain - Final Resulted 12/14/17 00:30 Wound Abdomen Wound Culture - Preliminary NO GROWTH IN 24 HOURS. Resulted Radiology Last Impressions Chest X-Ray 12/06/17 0000 Signed Impressions: Service Date/Time: Wednesday, December 06, 2017 07:38 - CONCLUSION: 1. Small left pleural effusion. 2. Cardiomegaly. 3. No acute focal pulmonary infiltrate or pulmonary vascular congestion. Allen Tony MD Abdomen X-Ray [id number]/03/[id number] Signed Impressions: Service Date/Time: Sunday, December 03, 2017 18:15 - CONCLUSION: Nonspecific abdomen. Luz Jean MD Bile Duct Drainage 12/03/17 0000 Signed Impressions: Service Date/Time: Sunday, December 03, 2017 14:10 - CONCLUSION: Uncomplicated biliary stent placement as above. Bj Hurtado MD Abdomen/Pelvis CT 12/03/17 0000 Signed Impressions: Service Date/Time: December 02:42 - CONCLUSION: 1. Moderate volume hemoperitoneum. 2. Interval placement of a right internal/external biliary drainage catheter. This is in good position. Jung Lundberg Jr., MD Cholangiopancreatography MRI 12/02/17 0000 Signed Impressions: Service Date/Time: Saturday, December 02, 2017 08:17 - CONCLUSION: 1. Significant dilatation of the intrahepatic ducts ending at the confluence and possibility of stricture at this site or a Klatskin's tumor which is not visualized should be entertained. 2. Wedge-shaped focal fat right hepatic lobe. Luz Jean MD Abdomen Ultrasound 12/01/17 0000 Signed Impressions: Service Date/Time: Friday, December 01, 2017 11:49 - CONCLUSION: 1. Intrahepatic biliary duct dilatation better seen on the CT examination. A lesion at the biliary duct confluence/common hepatic duct region still needs to be suspected. An ERCP or MRCP could be used to further evaluate this region. 2. Suspected area of focal hepatic steatosis at the anterior segment right lobe of the liver. 3. 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 REID DOCUMENTED THE VISIT. D/W DR FREDERICK/SURGICAL ONCOLOGY. 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 WE DO NOT BELIEVE HE IS A SURGICAL CANDIDATE AT THIS TIME. WOULD RECOMMEND BIOPSY OF STRICTURE BY RADIOLOGY OR GI. TREATMENT WILL LIKELY BE MEDICAL ONLY WITH STENTING OF STRICTURE AND POSSIBLE CHEMORADIATION ONCE DIAGNOSIS ESTABLISHED. WILL FU IN OFFICE AFTER DISCHARGE WITH DR FREDERICK TO RE-EVALUATE SURGICAL OPTIONS ONCE HIS MEDICAL CONDITION IMPROVES. WILL GLADLY SEE PRN WITH ANY SURGICAL CONCERNS. PLEASE CALL IF NEEDED. THANKS CYNTHIA ONEAL MD FACS Sandie Marquis Dec 16, 2017 10:06 Cynthia Oneal MD Dec 16, 2017 19:38
[2017-12-16] MEDS: D5-1/2 NS + KCL 20 MEQ INJ 1,000 ML IV SCH (13:00)
[2017-12-16] MEDS: LEVOFLOXACIN 750 MG PREMIX INJ 150 ML IV SCH (14:15)
[2017-12-16] MEDS: FUROSEMIDE 20 MG/2 ML VIAL IV PUSH SCH (14:15)
[2017-12-16 16:36] LABS: HEMOGLOBIN 7.6 GM/DL (13.0-17.0)
--- NOTE | 2017-12-16 16:59 | HHI.IDPN ---
Subjective Subjective Remarks WBC down to 30 K more jaundiced sp emesis earlier yday no fever Antibiotics zosyn fluconazol Past Medical History Allergies: Coded Allergies: No Known Allergies (Unverified Allergy, Unknown, 12/01/17) Objective . Vital Signs Date Time Temp Pulse Resp B/P (MAP) Pulse Ox O2 Delivery O2 Flow Rate FiO2 12/16/17 15:32 95 Nasal Cannula 2.00 12/16/17 12:00 98.0 91 18 132/68 (89) 97 12/16/17 08:14 97.8 95 20 150/79 (102) 96 12/16/17 08:14 Nasal Cannula 3.00 12/16/17 07:41 95 Nasal Cannula 2.00 12/16/17 04:24 97.5 90 18 122/64 (83) 93 12/16/17 02:57 Nasal Cannula 2.00 40 12/16/17 02:04 98.0 85 18 123/63 (83) 94 12/16/17 00:00 93 12/15/17 21:35 97.9 93 20 140/81 (100) 93 12/15/17 21:20 92 12/15/17 19:30 97 Nasal Cannula 2.00 12/15/17 17:50 97.9 85 16 120/69 (86) 97 12/16/17 12/16/17 12/17/17 15:00 23:00 07:00 Output Total 300 ml Balance -300 ml Output Urine Total 200 ml Drainage Total 100 ml # Bowel Movements 0 . Laboratory Tests Test 12/15/17 05:40 12/16/17 05:01 12/16/17 15:50 White Blood Count 42.6 TH/MM3 30.0 TH/MM3 Red Blood Count 2.82 MIL/MM3 2.47 MIL/MM3 Hemoglobin 8.3 GM/DL 7.2 GM/DL 7.6 GM/DL Hematocrit 25.8 % 22.6 % 24.0 % Mean Corpuscular Volume 91.4 FL 91.7 FL Mean Corpuscular Hemoglobin 29.6 PG 29.3 PG Mean Corpuscular Hemoglobin Concent 32.3 % 31.9 % Red Cell Distribution Width 17.6 % 17.7 % Platelet Count 182 TH/MM3 180 TH/MM3 Mean Platelet Volume 9.6 FL 9.6 FL Neutrophils (%) (Auto) 84.2 % 92.7 % Lymphocytes (%) (Auto) 2.7 % 2.4 % Monocytes (%) (Auto) 12.7 % 4.7 % Eosinophils (%) (Auto) 0.3 % 0.0 % Basophils (%) (Auto) 0.1 % 0.2 % Neutrophils # (Auto) 35.9 TH/MM3 27.8 TH/MM3 Lymphocytes # (Auto) 1.2 TH/MM3 0.7 TH/MM3 Monocytes # (Auto) 5.4 TH/MM3 1.4 TH/MM3 Eosinophils # (Auto) 0.1 TH/MM3 0.0 TH/MM3 Basophils # (Auto) 0.0 TH/MM3 0.1 TH/MM3 CBC Comment AUTO DIFF AUTO DIFF Differential Total Cells Counted 100 100 Neutrophils % (Manual) 91 % 86 % Band Neutrophils % 4 % 11 % Monocytes % 5 % 2 % Neutrophils # (Manual) 40.5 TH/MM3 29.4 TH/MM3 Differential Comment FINAL DIFF MANUAL FINAL DIFF MANUAL Platelet Estimate NORMAL NORMAL Platelet Morphology Comment NORMAL NORMAL Polychromasia 2.5 % Metamyelocytes 1 % Laboratory Tests Test 12/15/17 05:40 12/15/17 12:36 12/15/17 13:15 12/16/17 05:01 Blood Urea Nitrogen 12 MG/DL 23 MG/DL Creatinine 0.87 MG/DL 0.81 MG/DL Random Glucose 80 MG/DL 129 MG/DL Total Protein 5.6 GM/DL 5.7 GM/DL Albumin 2.2 GM/DL 2.1 GM/DL Calcium Level 9.6 MG/DL 9.3 MG/DL Alkaline Phosphatase 208 U/L 186 U/L Aspartate Amino Transf (AST/SGOT) 65 U/L 71 U/L Alanine Aminotransferase (ALT/SGPT) 57 U/L 57 U/L Total Bilirubin 7.3 MG/DL 6.4 MG/DL Sodium Level 143 MEQ/L 147 MEQ/L Potassium Level 3.2 MEQ/L 3.7 MEQ/L Chloride Level 104 MEQ/L 109 MEQ/L Carbon Dioxide Level 29.5 MEQ/L 30.2 MEQ/L Anion Gap 10 MEQ/L 8 MEQ/L Estimat Glomerular Filtration Rate 84 ML/MIN 92 ML/MIN Lipase 126 U/L 88 U/L Ammonia LESS THAN 10 MCMOL/L LESS THAN 10 MCMOL/L Microbiology Date/Time Source Procedure Growth Status 12/15/17 19:58 Blood Peripheral Aerobic Blood Culture - Preliminary NO GROWTH IN 1 DAY Resulted 12/15/17 19:58 Blood Peripheral Anaerobic Blood Culture - Preliminary NO GROWTH IN 1 DAY Resulted 12/15/17 19:52 Blood Peripheral Aerobic Blood Culture - Preliminary NO GROWTH IN 1 DAY Resulted 12/15/17 19:52 Blood Peripheral Anaerobic Blood Culture - Preliminary NO GROWTH IN 1 DAY Resulted 12/16/17 12:53 Urine Clean Catch Legionella Antigen - Final PRESUMPTIVE NEGATIVE FOR LEGIONELLA P... Complete 12/16/17 12:53 Urine Clean Catch Streptococcus pneumoniae Antigen (M - Final PRESUMPTIVE NEGATIVE FOR STREPTOCOCCU... Complete 12/14/17 00:30 Wound Abdomen Gram Stain - Final Resulted 12/14/17 00:30 Wound Abdomen Wound Culture - Preliminary NO GROWTH IN 48 HOURS. Resulted Imaging Last Impressions Chest X-Ray 12/16/17 0600 Signed Impressions: Service Date/Time: Saturday, December 16, 2017 05:57 - CONCLUSION: Mild hazy density throughout much the right lung and the left base representing some atelectasis and/or consolidation. The pattern appears similar to the prior exam. Some degree of effusion could also contribute to this appearance. Landry Zarate MD Cholangiogram 12/14/17 0000 Signed Impressions: Service Date/Time: Friday, December 15, 2017 14:39 - CONCLUSION: 1. The patient's catheters in good position and appears widely patent Lion Leahy MD Abdomen Ultrasound 12/14/17 0000 Signed Impressions: Service Date/Time: Thursday, December 14, 2017 09:01 - CONCLUSION: Limited study due to bandages on the abdomen and bowel gas. Focal fatty infiltration right lobe of liver again seen. Gallbladder appears collapsed. Minimal ascites. Jerry Laureano MD Abdomen X-Ray 12/13/17 0000 Signed Impressions: Service Date/Time: Wednesday, December 13, 2017 18:55 - CONCLUSION: Nothing acute demonstrated. Nonobstructive bowel gas pattern and no free air. Evidence of right upper quadrant surgery and a internal/external biliary drainage catheter again noted. Landry Ryan MD Abdomen/Pelvis CT 12/11/17 0000 Signed Impressions: Service Date/Time: December 23:42 - CONCLUSION: 1. There has been interval development of diffuse pancreatitis. There is diffuse inflammatory changes surrounding the pancreas. 2. The previously noted fluid adjacent to the liver has resolved. 3. There is an internal/external biliary drainage catheter in place which appears to be in good position and unchanged in position compared to the prior study. 4. There is a small amount of free fluid deep in the pelvis. 5. Small bilateral pleural effusions. Nathen Ruano MD Head CT 12/09/17 0000 Signed Impressions: Service Date/Time: Saturday, December 09, 2017 20:02 - CONCLUSION: Negative noncontrast head CT. Landry Ryan MD Bile Duct Drainage 12/03/17 0000 Signed Impressions: Service Date/Time: Sunday, December 03, 2017 14:10 - CONCLUSION: Uncomplicated biliary stent placement as above. Bj Hurtado MD Cholangiopancreatography MRI 12/02/17 0000 Signed Impressions: Service Date/Time: Saturday, December 02, 2017 08:17 - CONCLUSION: 1. Significant dilatation of the intrahepatic ducts ending at the confluence and possibility of stricture at this site or a Klatskin's tumor which is not visualized should be entertained. 2. Wedge-shaped focal fat right hepatic lobe. Luz Jean MD Physical Exam CONSTITUTIONAL/GENERAL: This is an adequately nourished patient, in no apparent distress. TUBES/LINES/DRAINS: SKIN: + quite jaundiced, no rashes, or lesions. Skin temperature appropriate. Not diaphoretic. CARDIOVASCULAR: Regular rate and rhythm without murmurs, gallops, or rubs. No JVD. Peripheral pulses symmetric. RESPIRATORY/CHEST: Symmetric, unlabored respirations. Clear to auscultation. Breath sounds equal bilaterally. No wheezes, rales, or rhonchi. GASTROINTESTINAL: Abdomen soft with some tenderness to palpation and is less distended. Biliary drain in place with brown bile Drain d/c'd, minimal drainage at previous drain site No hepato-splenomegaly, or palpable masses. No guarding. Bowel sounds present. GENITOURINARY: Without palpable bladder distension. Carmona catheter in place with scarce amout of dark cloudy urine MUSCULOSKELETAL: Extremities without clubbing, cyanosis, Less edema. No joint tenderness or effusion noted. No calf tenderness. No mottling or clubbing. NEUROLOGICAL: Fully awake and alert, following commands PSYCHIATRIC: calm and cooperative Assessment & Plan Remarks Acute hypovolemic shock following bleeding 2/2 complicaion of biliary stent placement sp emergent surgery - shock cliniocally resolved Obstructive jaundiced, ethiology not yet established sp biliary stent placement candidal cholangitis Sepsis Leukocytosis, leukemoid reaction - improving initilaly ; worse again Acute VDRF - resolved ARF- resolved Pt significant ly improved clinically Staph epi bacteriuria - doubt clin significance - not a trypical urinary pathogen Pancreatitis by CT finding , but lipase amylase wnl ? aspiration PNA Dysphagia, on thickened liquids now cont zosyn cont fluconazole @ 400 mg IV anticipate transition to oral Augmentin, fluconazol pending further WBC improvement will not switch to oral abx now when pt has substantial leukemoid reaction Brigette Gill MD Dec 16, 2017 16:59
[2017-12-16] MEDS ORDERED: HYDROmorphone HCL PF 2 MG/ML VIAL ONE (17:16)
[2017-12-16] MEDS ORDERED: IOHEXOL 350 MG/ML 50 ML BTL (for RAD DIAG) OTHER ONE (17:41)
[2017-12-16] MEDS: VANCOMYCIN INJ 1,750 MG in SODIUM CHLORID 0.9% 500 ML INJ 500 ML IV SCH (17:59)
--- NOTE | 2017-12-16 18:11 | RADRPT ---
EXAM DATE/TIME: 12/16/2017 17:07 [facility] COMPARISON: CT ABDOMEN & PELVIS W CONTRAST, December 11, 2017, 23:42. INDICATIONS : Patient with exsisting lucero tube.Tube is leaking. MEDICAL HISTORY : 1. BPH 2. hyperlipidemia SURGICAL HISTORY : 1. neck surgery 2. back surgery ENCOUNTER: Subsequent ACUITY: 2 days PAIN SCORE: 4/10 LOCATION: Right upper quadrant FLUORO TIME: 0.5 minutes IMAGE SERIES: 1 CONTRAST: 6 cc Omnipaque (iohexol) 350 MEDICATION(S): 1.) 2 mg hydromorphone (Dilaudid) IV PROCEDURE : 1. tube cholangiogram The risks, benefits and alternatives to the procedure were explained and verbal and written consent w as obtained. The site was prepped in sterile fashion. Full sterile technique was used, including ca p, mask, sterile gloves and gown and a large sterile sheet. Hand hygiene and 2% chlorhexidine and/or betadine/alcohol prep was utilized per protocol for cutaneous antisepsis. The skin and subcutaneous tissues were infiltrated with local anesthetic solution. The patient's biliary drainage catheter was evaluated. To remains in good position with free flow of injected contrast into a nondilated intrahepatic biliary tree past a hilar stricture into a normal ca liber common duct and down to small bowel. There is no evidence of leakage along the tube entry tract . Serous sanguinous drainage was noted on the patient's dressing when he arrived. I performed ultraso und evaluation to determine if the presence of ascites along the liver edge might be contributing to fluid leakage through the tube tract, however no significant ascites is present along the liver surfa ce. CONCLUSION: There is no drainage catheter complication. The patient does not have significant accumulation of abd ominal ascites along the liver surface to potentially exacerbate fluid leakage along the tube tract. The fluid drainage appears to be benign serosanguinous. Dressing changes p.r.n. recommended. Landry Mitchell MD on December 16, 2017 at 18:03 Board Certified Radiologist. This report was verified electronically.
[2017-12-16] MEDS: CHLORHEXIDINE 0.12% (ORAL KIT) 15 ML CUP MT SCH (20:00)
[2017-12-17] VITALS (25 sets, daily range): BP systolic 125–165; BP diastolic 76–85; PULSE 81–97; RESP 16–30; TEMP 96.8–97.9; O2SAT 94–98
[2017-12-17] MEDS: ALBUMIN 25% INJ 50 ML IV SCH ×2 (00:05→12:00)
[2017-12-17] MEDS: METOPROLOL TARTRATE 25 MG TAB PO SCH ×4 (00:05→23:20)
[2017-12-17] MEDS: FLUCONAZOLE 400 MG PREMIX BAG 200 ML IV SCH ×2 (01:01→23:35)
[2017-12-17] MEDS: RESP: ALBUTEROL 2.5 MG/IPRATROPIUM 0.5 MG NEB (SCH) NEB ×6 (03:17→23:48)
[2017-12-17] MEDS: methylPREDNISolone SOD SUCC 40 MG/1 ML VIAL IV PUSH SCH ×3 (05:03→23:21)
[2017-12-17] MEDS: LEVOTHYROXINE SODIUM 100 MCG TAB PO SCH (05:03)
[2017-12-17] MEDS: PIPERACILLIN/TAZ 3.375 GM VIAL 3.375 GM in SODIUM CHLORIDE 0.9% INJ 50 ML IV SCH ×4 (05:03→23:18)
[2017-12-17 06:50] LABS: AUTOMATED NEUTROPHIL # 23.8 TH/MM3 (1.8-7.7); BASOPHIL % 0.1 % (0.0-2.0); HEMATOCRIT 21.9 % (39.0-51.0); HEMOGLOBIN 7.1 GM/DL (13.0-17.0); LYMPH % 1.7 % (9.0-44.0); LYMPHOCYTE # 0.4 TH/MM3 (1.0-4.8); MEAN CELL VOLUME 91.8 FL (80.0-100.0); MEAN CORPUSCULAR HEMOGLOBIN 29.8 PG (27.0-34.0); MEAN CORPUSCULAR HGB CONC 32.5 % (32.0-36.0); MONO % 4.7 % (0.0-8.0); MONOCYTE # 1.2 TH/MM3 (0-0.9); NEUT % 93.5 % (16.0-70.0); PLATELET COUNT 235 TH/MM3 (150-450); RED BLOOD COUNT 2.39 MIL/MM3 (4.50-5.90); RED CELL DISTRIBUTION WIDTH 17.6 % (11.6-17.2); WHITE BLOOD COUNT 25.4 TH/MM3 (4.0-11.0)
[2017-12-17 07:00] LABS: ALBUMIN 2.3 GM/DL (3.4-5.0); AST (GOT) 113 U/L (15-37); BICARBONATE 31.7 MEQ/L (21.0-32.0); BLOOD UREA NITROGEN 29 MG/DL (7-18); CALCIUM 9.7 MG/DL (8.5-10.1); CHLORIDE 110 MEQ/L (98-107); CREATININE 0.97 MG/DL (0.60-1.30); GLOMERULAR FILTRATION RATE 74 ML/MIN (>89); GLUCOSE,RANDOM 154 MG/DL (74-106); SODIUM (NA) 148 MEQ/L (136-145)
[2017-12-17 07:03] LABS: ALKALINE PHOSPHATASE 191 U/L (45-117); ALT (GPT) 87 U/L (12-78); TOTAL BILIRUBIN ADULT 7.4 MG/DL (0.2-1.0)
[2017-12-17] MEDS: CHLORHEXIDINE 0.12% (ORAL KIT) 15 ML CUP MT SCH ×2 (08:00→20:00)
[2017-12-17 08:01] LABS: BANDS 4 % (0-6); LYMPHOCYTES 4 % (9-44); MONOCYTES 5 % (0-8); MYELOCYTES 1 % (0-0); NEUTROPHIL # MANUAL DIFF 23.1 TH/MM3 (1.8-7.7); POLYS (SEG NEUTROPHILS) 86 % (16-70)
[2017-12-17 08:02] LABS: OVALOCYTES 1+ (NORMAL)
[2017-12-17] MEDS: SODIUM CHLORIDE 0.9% FLUSH 10 ML FLUSH IV FLUSH SCH ×2 (09:00→23:21)
[2017-12-17] MEDS: D5-1/2 NS + KCL 20 MEQ INJ 1,000 ML IV SCH (09:00)
--- NOTE | 2017-12-17 09:16 | RADRPT ---
EXAM DATE/TIME: 12/17/2017 08:29 [facility] COMPARISON: CHEST PA & LAT, December 16, 2017, 5:57. INDICATIONS : Evaluate for pneumonia. MEDICAL HISTORY : Cardiovascular disease. Renal calculi SURGICAL HISTORY : Biliary stent placement. Laparotomy ENCOUNTER: Subsequent ACUITY: 2 weeks PAIN SCORE: 0/10 LOCATION: Bilateral chest FINDINGS: PA and lateral views of the chest demonstrate bilateral patchy infiltrates are stable, right slightly worse than left. The patient has a broad rightward thoracic scoliosis. There's been a previous cervi kiran fusion plate. I did not see any visible pneumothorax or significant pleural effusion. Osseous st ructures are intact. CONCLUSION: Patch infiltrates bilaterally right worse and left, unchanged.. Manuel Jarquin MD on December 17, 2017 at 9:10 Board Certified Radiologist. This report was verified electronically.
[2017-12-17] MEDS: RESP: BUDESONIDE 0.5 MG/2 ML NEB NEB SCH ×2 (09:20→20:43)
[2017-12-17] MEDS ORDERED: SODIUM CHLOR 0.9% 250 ML INJ 250 ML IV ONE (09:45)
[2017-12-17] MEDS: DOCUSATE SODIUM 50 MG/SENNA 8.6 MG TAB PO SCH ×2 (10:04→23:20)
[2017-12-17] MEDS: PANTOPRAZOLE SODIUM 40 MG VIAL IV PUSH SCH (10:05)
[2017-12-17] MEDS: URSODIOL 300 MG CAP PO SCH ×2 (10:05→23:21)
[2017-12-17] MEDS: POTASSIUM CHLORIDE 20 MEQ CONTROLLED RELEASE TAB PO SCH (10:05)
[2017-12-17] MEDS: LACTULOSE SYRUP 20 GM/30 ML CUP PO SCH (10:05)
[2017-12-17] MEDS: FINASTERIDE 5 MG TAB PO SCH (10:06)
--- NOTE | 2017-12-17 12:58 | HHI.FPPN ---
Subjective Remarks Mr. Rios was lying in bed this morning. He states that he is not in pain. Nurse at bedside reported that when she checked his drain this morning, the skin was clean dry and intact. (Lorin Pollock MD R2) Objective Vitals Vital Signs Date Time Temp Pulse Resp B/P (MAP) Pulse Ox O2 Delivery O2 Flow Rate FiO2 12/17/17 11:00 83 12/17/17 10:00 84 12/17/17 09:22 94 Nasal Cannula 2.00 12/17/17 09:00 85 12/17/17 08:00 96.8 96 18 149/82 (104) 96 12/17/17 08:00 96 12/17/17 07:00 83 12/17/17 07:00 Nasal Cannula 3.00 12/17/17 05:07 97.6 93 18 150/82 (104) 98 12/17/17 04:03 85 12/17/17 03:19 96 Nasal Cannula 3.00 12/17/17 00:16 83 12/17/17 00:15 98 Room Air 12/17/17 00:08 97.6 81 16 125/78 (94) 98 12/16/17 21:57 97.7 85 16 141/78 (99) 97 12/16/17 20:38 83 12/16/17 17:55 97.8 90 16 140/66 (90) 95 12/16/17 15:32 95 Nasal Cannula 2.00 I/O 12/16/17 12/16/17 12/16/17 12/17/17 12/17/17 12/17/17 07:00 15:00 23:00 07:00 15:00 23:00 Intake Total 50 ml 517 ml 100 ml Output Total 50 ml 300 ml 100 ml 100 ml Balance 0 ml -300 ml 417 ml 0 ml IV Total 50 ml 517 ml 100 ml Output Urine Total 50 ml 200 ml Drainage Total 100 ml 100 ml 100 ml # Voids 2 2 2 # Bowel Movements 0 (Lorin Pollock MD R2) Result Diagram: 12/17/1751312/17/17513 Objective Remarks GENERAL: Well-nourished, well-developed mildly jaundiced obese patient, lying in bed, eyes open SKIN: Warm and damp. No lesions. HEAD: Normocephalic. Atraumatic. EYES: Mild scleral icterus. No injection or drainage. CARDIOVASCULAR: Mild tachycardia with regular rhythm without murmur, gallop, or rub. RESPIRATORY: Mild expiratory wheezing. GASTROINTESTINAL: Abdomen obese, not tender to palpation but patient was barely awake. No guarding. BS present but not very active. No guarding. Transverse laparotomy scar over RUQ closed with adrienne is c/d/i with no induration or fluctuance. Biliary drain in place on right lateral abdomen with small amount of green bilious drainage. EXTREMITIES: No cyanosis. SCDs in place. 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 Following IR biliary stent and drainage on 12/03, pt found to have liver laceration and hemorrhage causing hemoperitoneum. Exploratory laparotomy performed emergently on 12/04 requiring 6u PRBCs, 1u FFP and 1u Cryo with EBL 2L. Following surgery, pt was sent to ICU for management and showed improvement but still with persistently elevated WBC. He was found to have pancreatitis on CT scan but lipase and amylase were not elevated. His biliary drain was investigated on 12/16/16 due to leaking and was found to be working properly. Seen and examined with Dr. Valero. Discussed with Dr. Landry Discharge Planning Anticipate discharge once patient is clinically stable, time frame unclear. (Lorin Pollock MD R2) Attending Attestation Patient seen and examined. Case reviewed and discussed with the resident team. Agree with plan of care as discussed with me and documented in the resident note. (Elena Landry MD) Problem List: (1) Pneumonia ICD Codes: J18.9 - Pneumonia, unspecified organism Plan: Pneumonia vs atelectasis on CXR -Mild hazy density in the right lung and left base on 12/16/16 PA/lat chest x-ray -Continue Zosyn 3.375 g IV every 6 hours (since 12/01/17), Levaquin 750 mg every 24 hours IV and, Vancomycin 1750 mg IV every 24 hours -Patient also on fluconazole - (since 12/04/17) -Continue Solumedrol 40mg IV q8h -Continue Duonebs (2) Liver hemorrhage ICD Codes: K76.89 - Other specified diseases of liver Status: Acute Plan: -POD#13 ex lap on 12/04 for liver laceration -Stable -Continue pain control as needed (3) Abdominal pain ICD Codes: R10.9 - Unspecified abdominal pain Status: Acute Plan: Stable -IR re-assessed biliary drain on 12/16/16 and it was determined to be working properly -GI will discuss obtaining tissue samples with IR * No plan for EUS until resolution of pancreatitis [place] and morphine IV as needed for pain CT findings as below MRCP findings as below CT of the abdomen and pelvis: 12/04/17: Moderate volume hemoperitoneum. Interval placement of a right internal/external earlier a drainage catheter. Drain good position. CT of the abdomen and pelvis: 12/11/17: 1. Interval development of diffuse pancreatitis. Diffuse inflammatory changes surrounding the pancreas. 2. Previously noted fluid adjacent to the liver has resolved. 3. Internal/external biliary drainage catheter in place which appears to be in good position and unchanged in position compared to the prior study. 4. Small amount of free fluid deep in the pelvis. 5. Small bilateral pleural effusions. MRCP: 12/02/17: Significant dilation of the intrahepatic ducts ending in the confluence and possibility of stricture at the site or a lack since tumor which is not visualized should be entertained. Wedge-shaped focal fat right hepatic lobe Plan angiogram: 12/16/16: No drainage catheter complication, dressing changes when necessary (4) Leukocytosis ICD Codes: D72.829 - Elevated white blood cell count, unspecified Status: Acute Plan: Possible leukemoid reaction - down to 25 400 today -Transition to PO Abx when WBC improves per ID -Wound cx of biliary drain fluid NGTD Heme/onc consult reveals likely due to infection -B12 high 2000 /folate wnl -heme occult/[place] ordered (5) Anemia ICD Codes: D64.9 - Anemia, unspecified Plan: -H/H 7.1/21.9 -Transfuse 1 unit PRBC -Recheck H/H 2 hours after transfusion (6) Polymyalgia rheumatica ICD Codes: M35.3 - Polymyalgia rheumatica Status: Chronic Plan: Holding prednisone 5 mg daily, on Solumedrol 40 mg IV every 8 hours for pneumonia (7) BPH (benign prostatic hyperplasia) ICD Codes: N40.0 - Benign prostatic hyperplasia without lower urinary tract symptoms Status: Chronic Plan: -Continue home finasteride (8) Hypothyroidism ICD Codes: E03.9 - Hypothyroidism, unspecified Status: Chronic Plan: Continue home Synthroid 100 mcg daily (9) FEN/PPX Plan: Fluids: holding fluids due to being overloaded, diuresis with lasix, encourage by mouth intake Electrolytes: Monitor and replace PRN Nutrition: Diet per speech therapy and nutrition DVT: SCDs, holding pharmacologic prophylaxis due to acute bleed (Lorin Pollock MD R2) Problem Qualifiers (1) Abdominal pain: Qualified Codes: R10.11 - Right upper quadrant pain (2) Leukocytosis: Qualified Codes: D72.829 - Elevated white blood cell count, unspecified (3) BPH (benign prostatic hyperplasia): Qualified Codes: N40.0 - Benign prostatic hyperplasia without lower urinary tract symptoms (4) Hypothyroidism: Qualified Codes: E03.9 - Hypothyroidism, unspecified Lorin Pollock MD R2 Dec 17, 2017 12:57 Elena Landry MD Dec 22, 2017 14:35
[2017-12-17] MEDS: LEVOFLOXACIN 750 MG PREMIX INJ 150 ML IV SCH (13:48)
[2017-12-17 14:21] LABS: HEMATOCRIT 21.2 % (39.0-51.0); HEMOGLOBIN 6.8 GM/DL (13.0-17.0)
--- NOTE | 2017-12-17 15:51 | HHI.GIFU ---
Subjective Remarks Pt resting in bed denies any abdominal pain. Per pts his biliary drain dressing was changed around 1pm today, previously with bloody drainage. 100cc of dark fluid currently in collection bag. (Reena High) Objective Vitals I&O Vital Signs Date Time Temp Pulse Resp B/P (MAP) Pulse Ox O2 Delivery O2 Flow Rate FiO2 12/17/17 14:57 94 Nasal Cannula 2.00 12/17/17 12:00 97.1 95 20 134/76 (95) 96 12/17/17 11:00 83 12/17/17 10:00 84 12/17/17 09:22 94 Nasal Cannula 2.00 12/17/17 09:00 85 12/17/17 08:00 96.8 96 18 149/82 (104) 96 12/17/17 08:00 96 12/17/17 07:00 83 12/17/17 07:00 Nasal Cannula 3.00 12/17/17 05:07 97.6 93 18 150/82 (104) 98 12/17/17 04:03 85 12/17/17 03:19 96 Nasal Cannula 3.00 12/17/17 00:16 83 12/17/17 00:15 98 Room Air 12/17/17 00:08 97.6 81 16 125/78 (94) 98 12/16/17 21:57 97.7 85 16 141/78 (99) 97 12/16/17 20:38 83 12/16/17 17:55 97.8 90 16 140/66 (90) 95 I/O 12/16/17 12/16/17 12/16/17 12/17/17 12/17/17 12/17/17 07:00 15:00 23:00 07:00 15:00 23:00 Intake Total 50 ml 517 ml 100 ml Output Total 50 ml 300 ml 100 ml 100 ml Balance 0 ml -300 ml 417 ml 0 ml IV Total 50 ml 517 ml 100 ml Output Urine Total 50 ml 200 ml Drainage Total 100 ml 100 ml 100 ml # Voids 2 2 2 # Bowel Movements 0 Laboratory Laboratory Tests Test 12/16/17 15:50 12/17/17 05:14 12/17/17 13:30 Hemoglobin 7.6 7.1 6.8 Hematocrit 24.0 21.9 21.2 White Blood Count 25.4 Red Blood Count 2.39 Mean Corpuscular Volume 91.8 Mean Corpuscular Hemoglobin 29.8 Mean Corpuscular Hemoglobin Concent 32.5 Red Cell Distribution Width 17.6 Platelet Count 235 Mean Platelet Volume 10.0 Neutrophils (%) (Auto) 93.5 Lymphocytes (%) (Auto) 1.7 Monocytes (%) (Auto) 4.7 Eosinophils (%) (Auto) 0.0 Basophils (%) (Auto) 0.1 Neutrophils # (Auto) 23.8 Lymphocytes # (Auto) 0.4 Monocytes # (Auto) 1.2 Eosinophils # (Auto) 0.0 Basophils # (Auto) 0.0 CBC Comment AUTO DIFF Differential Total Cells Counted 100 Neutrophils % (Manual) 86 Band Neutrophils % 4 Lymphocytes % 4 Monocytes % 5 Neutrophils # (Manual) 23.1 Myelocytes 1 Differential Comment FINAL DIFF MANUAL Platelet Estimate NORMAL Platelet Morphology Comment ENLARGED Ovalocytes 1+ Blood Urea Nitrogen 29 Creatinine 0.97 Random Glucose 154 Total Protein 6.0 Albumin 2.3 Calcium Level 9.7 Alkaline Phosphatase 191 Aspartate Amino Transf (AST/SGOT) 113 Alanine Aminotransferase (ALT/SGPT) 87 Total Bilirubin 7.4 Sodium Level 148 Potassium Level 3.5 Chloride Level 110 Carbon Dioxide Level 31.7 Anion Gap 6 Estimat Glomerular Filtration Rate 74 Date/Time Source Procedure Growth Status 12/15/17 19:58 Blood Peripheral Aerobic Blood Culture - Preliminary NO GROWTH IN 2 DAYS Resulted 12/15/17 19:58 Blood Peripheral Anaerobic Blood Culture - Preliminary NO GROWTH IN 2 DAYS Resulted 12/04/17 00:42 Fluid Bile Fluid Gram Stain - Final Complete 12/04/17 00:42 Body Fluid Culture - Final Jabari Albicans Complete 12/16/17 12:53 Urine Clean Catch Legionella Antigen - Final PRESUMPTIVE NEGATIVE FOR LEGIONELLA P... Complete 12/16/17 12:53 Urine Clean Catch Streptococcus pneumoniae Antigen (M - Final PRESUMPTIVE NEGATIVE FOR STREPTOCOCCU... Complete 12/14/17 00:30 Wound Abdomen Gram Stain - Final Complete 12/14/17 00:30 Wound Abdomen Wound Culture - Final NO GROWTH IN 72 HRS.--AEROBICALLY OR ... Complete Imaging Last Impressions Chest X-Ray 12/17/17 0700 Signed Impressions: Service Date/Time: Sunday, December 17, 2017 08:29 - CONCLUSION: Patch infiltrates bilaterally right worse and left, unchanged.. Manuel Jarquin MD Cholangiogram 12/16/17 0000 Signed Impressions: Service Date/Time: Saturday, December 16, 2017 17:07 - CONCLUSION: There is no drainage catheter complication. The patient does not have significant accumulation of abdominal ascites along the liver surface to potentially exacerbate fluid leakage along the tube tract. The fluid drainage appears to be benign serosanguinous. Dressing changes p.r.n. recommended. Landry Mitchell MD Abdomen Ultrasound 12/14/17 0000 Signed Impressions: Service Date/Time: Thursday, December 14, 2017 09:01 - CONCLUSION: Limited study due to bandages on the abdomen and bowel gas. Focal fatty infiltration right lobe of liver again seen. Gallbladder appears collapsed. Minimal ascites. Jerry Laureano MD Abdomen X-Ray 12/13/17 0000 Signed Impressions: Service Date/Time: Wednesday, December 13, 2017 18:55 - CONCLUSION: Nothing acute demonstrated. Nonobstructive bowel gas pattern and no free air. Evidence of right upper quadrant surgery and a internal/external biliary drainage catheter again noted. Landry Ryan MD Abdomen/Pelvis CT 12/11/17 0000 Signed Impressions: Service Date/Time: December 23:42 - CONCLUSION: 1. There has been interval development of diffuse pancreatitis. There is diffuse inflammatory changes surrounding the pancreas. 2. The previously noted fluid adjacent to the liver has resolved. 3. There is an internal/external biliary drainage catheter in place which appears to be in good position and unchanged in position compared to the prior study. 4. There is a small amount of free fluid deep in the pelvis. 5. Small bilateral pleural effusions. Nathen Ruano MD Head CT 12/09/17 0000 Signed Impressions: Service Date/Time: Saturday, December 09, 2017 20:02 - CONCLUSION: Negative noncontrast head CT. Landry Ryan MD Bile Duct Drainage 12/03/17 0000 Signed Impressions: Service Date/Time: Sunday, December 03, 2017 14:10 - CONCLUSION: Uncomplicated biliary stent placement as above. Bj Hurtado MD Cholangiopancreatography MRI 12/02/17 0000 Signed Impressions: Service Date/Time: Saturday, December 02, 2017 08:17 - CONCLUSION: 1. Significant dilatation of the intrahepatic ducts ending at the confluence and possibility of stricture at this site or a Klatskin's tumor which is not visualized should be entertained. 2. Wedge-shaped focal fat right hepatic lobe. Luz Jean MD Physical Exam HEENT: Normocephalic; atraumatic CHEST: End expiratory wheezing CARDIAC: RRR ABDOMEN: Soft and nondistended some tenderness no rebound or guarding, bowel sounds active. Biliary drain with 100mL in drainage bag, dressing on abdomen clean and dry, changed at 1pm. EXTREMITIES: No clubbing, cyanosis, or edema. SKIN: + jaundice. 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 Capsular tear liver, s/p ex lap and control liver laceration bleed Anemia, stable 9.1, Alk. Phos, 148 decreased, Bilirubin mild elevated 6.2, LFT 62/50 CT 12/11/17, Pancreatits with inflammatory change persists. Drain good placement (12/13) Pt is S/P biliary drain placed by IR and S/P emergent exploratory laparotomy for liver laceration and hemoperitoneum on 12/04. CT abdomen and pelvis with IV contrast (12/11) --> There has been interval development of diffuse pancreatitis. There is diffuse inflammatory changes surrounding the pancreas. The previously noted fluid adjacent to the liver has resolve. There is an internal/external biliary drainage catheter in place which appears to be in good position and unchanged in position compared to prior study. There is a small amount of free fluid deep in the pelvis. Small bilateral pleural effusions. Pt now with elevated WBC count, tachycardic, afebrile. On Zosyn. Bile culture showed jabari, pt on IV Fluconazole. Lipase- 104. Pt currently has regular diet, per he has not been eating much. LFTs currently AST-62 ALT-50 Alk phos-148 T bili 6.2. discuss with IR. No procedures until resolution of pancreatitis (12/16/17) apparently patient presenting with abdominal pain in the right upper quadrant with abnormal liver function tests and dilated intrahepatic biliary tract he sustained liver laceration during IR biliary drainage this was addressed surgically the patient appears to be progressing slowly but surely. 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 The patient does not have significant accumulation of abdominal ascites along the liver surface to potentially exacerbate fluid leakage along the tube tract. The fluid drainage appears to be benign serosanguineous. Recommended dressing changes as needed. LFTs elevated today. Currently AST-113 ALT-87 Alk phos- 191 T bili-7.4. WBCs improving, now 25.4. H/H trending down, currently 6.8/21.2. PRBCs ordered per family medicine doctor. Case discussed with Dr. 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 Also reports no plans to discontinue drain because of the obstruction at the biliary confluence and that the pt will likely have to stay with this. 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 Will order liver mccarthy to assess other etiologies for elevated LFTs ([place], AMA, ASMA, ceruloplasmin, alpha-1 antitrypsin, celiac panel) Plan for possible liver biopsy in the future depending on results of above. Plan: - IR consult for forceps biopsy of Katzin's tumor - Liver workup to determine possible other etiology of elevated LFTs - Monitor biliary drain output - Monitor labs - Transfuse as needed - Supportive care - Further recommendations to follow based on results of above Pt has been seen and examined by myself and Dr. 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
[2017-12-17] MEDS: VANCOMYCIN INJ 1,750 MG in SODIUM CHLORID 0.9% 500 ML INJ 500 ML IV SCH (17:01)
[2017-12-17] MEDS: FUROSEMIDE 20 MG/2 ML VIAL IV PUSH SCH (19:10)
[2017-12-17 20:48] LABS: HEMATOCRIT 24.5 % (39.0-51.0); HEMOGLOBIN 8.1 GM/DL (13.0-17.0)
[2017-12-17 21:07] LABS: IRON (FE) 70 MCG/DL (65-175)
[2017-12-17 21:09] LABS: % SATURATION IRON PROFILE 35.7 % (20-50); TOTAL IRON BINDING CAPACITY 196 MCG/DL (250-450)
[2017-12-17 21:56] LABS: FERRITIN 912 NG/ML (26-388)
[2017-12-17] MEDS: MELATONIN 5 MG TAB PO PRN (23:20)
[2017-12-18] VITALS (24 sets, daily range): BP systolic 142–169; BP diastolic 73–95; PULSE 80–98; RESP 18–36; TEMP 97.3–98.7; O2SAT 92–96
[2017-12-18] MEDS: RESP: ALBUTEROL 2.5 MG/IPRATROPIUM 0.5 MG NEB (SCH) NEB ×6 (03:29→23:36)
--- NOTE | 2017-12-18 04:04 | HHI.FPPN ---
Addendum to progress note ADDENDUM Reason for addendum: Additonal documentation Additional information Residents stopped by to check on Mr. Rios around 0100am in the morning due to his nurse's concern that he was tachpneic and wheezing. Patient was awake and denied chest pain or shortness of breath at the time, but stated that he was upset because he has not been able to reach his or daughter for 2 days. His lung exam was similar to previous but with no audible wheezing. We reassured him that his would come to see him later that morning. (Lorin Pollock MD R2) Lorni Pollock MD R2 Dec 18, 2017 04:03 Elena Landry MD Dec 22, 2017 14:34
[2017-12-18] MEDS: PIPERACILLIN/TAZ 3.375 GM VIAL 3.375 GM in SODIUM CHLORIDE 0.9% INJ 50 ML IV SCH ×4 (04:18→21:58)
[2017-12-18] MEDS: D5-1/2 NS + KCL 20 MEQ INJ 1,000 ML IV SCH (05:00)
[2017-12-18] MEDS: LEVOTHYROXINE SODIUM 100 MCG TAB PO SCH (06:00)
[2017-12-18] MEDS: methylPREDNISolone SOD SUCC 40 MG/1 ML VIAL IV PUSH SCH ×3 (06:00→21:58)
[2017-12-18 06:53] LABS: AUTOMATED NEUTROPHIL # 24.6 TH/MM3 (1.8-7.7); BASOPHIL # 0.1 TH/MM3 (0-0.2); BASOPHIL % 0.2 % (0.0-2.0); HEMATOCRIT 23.2 % (39.0-51.0); HEMOGLOBIN 7.6 GM/DL (13.0-17.0); LYMPH % 1.7 % (9.0-44.0); LYMPHOCYTE # 0.4 TH/MM3 (1.0-4.8); MEAN CELL VOLUME 93.2 FL (80.0-100.0); MEAN CORPUSCULAR HEMOGLOBIN 30.6 PG (27.0-34.0); MEAN CORPUSCULAR HGB CONC 32.8 % (32.0-36.0); NEUT % 94.1 % (16.0-70.0); PLATELET COUNT 217 TH/MM3 (150-450); RED BLOOD COUNT 2.49 MIL/MM3 (4.50-5.90); RED CELL DISTRIBUTION WIDTH 17.7 % (11.6-17.2); WHITE BLOOD COUNT 26.1 TH/MM3 (4.0-11.0)
[2017-12-18 07:09] LABS: ALT (GPT) 109 U/L (12-78)
[2017-12-18 07:11] LABS: ALBUMIN 2.4 GM/DL (3.4-5.0); ALKALINE PHOSPHATASE 172 U/L (45-117); AST (GOT) 126 U/L (15-37); BICARBONATE 32.5 MEQ/L (21.0-32.0); BLOOD UREA NITROGEN 32 MG/DL (7-18); CALCIUM 9.3 MG/DL (8.5-10.1); CHLORIDE 109 MEQ/L (98-107); CREATININE 0.83 MG/DL (0.60-1.30); GLOMERULAR FILTRATION RATE 89 ML/MIN (>89); GLUCOSE,RANDOM 166 MG/DL (74-106); SODIUM (NA) 148 MEQ/L (136-145); TOTAL BILIRUBIN ADULT 7.5 MG/DL (0.2-1.0); TOTAL PROTEIN 5.5 GM/DL (6.4-8.2)
[2017-12-18] MEDS: CHLORHEXIDINE 0.12% (ORAL KIT) 15 ML CUP MT SCH ×2 (08:00→19:51)
[2017-12-18] MEDS: LACTULOSE SYRUP 20 GM/30 ML CUP PO SCH (08:01)
[2017-12-18] MEDS: PANTOPRAZOLE SODIUM 40 MG VIAL IV PUSH SCH (08:01)
[2017-12-18] MEDS: FINASTERIDE 5 MG TAB PO SCH (08:01)
[2017-12-18] MEDS: URSODIOL 300 MG CAP PO SCH ×2 (08:02→21:58)
[2017-12-18] MEDS: POTASSIUM CHLORIDE 20 MEQ CONTROLLED RELEASE TAB PO SCH (08:02)
[2017-12-18] MEDS: DOCUSATE SODIUM 50 MG/SENNA 8.6 MG TAB PO SCH ×2 (08:02→21:58)
[2017-12-18] MEDS: METOPROLOL TARTRATE 25 MG TAB PO SCH ×2 (08:02→16:26)
[2017-12-18 08:04] LABS: TARGET CELLS 1+ (NORMAL)
[2017-12-18] MEDS: SODIUM CHLORIDE 0.9% FLUSH 10 ML FLUSH IV FLUSH SCH ×2 (08:19→21:58)
[2017-12-18] MEDS: RESP: BUDESONIDE 0.5 MG/2 ML NEB NEB SCH ×2 (08:58→20:04)
[2017-12-18 10:36] LABS: HEPATITIS A AB IGM NEGATIVE (NEGATIVE); HEPATITIS B CORE AB IGM NEGATIVE (NEGATIVE); HEPATITIS B SURFACE ANTIGEN NEGATIVE (NEGATIVE); HEPATITIS C AB IgG NEGATIVE (NEGATIVE)
[2017-12-18] MEDS: FUROSEMIDE 20 MG/2 ML VIAL IV PUSH SCH (12:15)
[2017-12-18] MEDS: ALBUMIN 25% INJ 50 ML IV SCH ×2 (12:20)
--- NOTE | 2017-12-18 13:32 | HHI.GIFU ---
Subjective Remarks Gone to IR for Biopsy. No family in room. initally Patient back now. Mild Rt. sided abd pain with light palpation awake (Apoorva Quevedo) Objective Vitals I&O Vital Signs Date Time Temp Pulse Resp B/P (MAP) Pulse Ox O2 Delivery O2 Flow Rate FiO2 12/18/17 11:00 Nasal Cannula 2.00 12/18/17 11:00 87 12/18/17 09:01 96 Nasal Cannula 2.00 12/18/17 08:19 97.6 87 36 142/73 (96) 95 12/18/17 06:00 88 12/18/17 05:00 86 12/18/17 04:00 98.2 92 30 150/84 (106) 96 12/18/17 04:00 90 12/18/17 03:00 80 12/18/17 02:00 80 12/18/17 01:00 88 12/18/17 00:00 86 12/18/17 00:00 97.3 88 30 152/81 (104) 96 12/17/17 23:53 96 Nasal Cannula 2.00 12/17/17 23:00 90 12/17/17 22:00 92 12/17/17 21:00 88 12/17/17 20:00 97.4 87 30 165/85 (111) 96 12/17/17 20:00 89 12/17/17 19:34 Nasal Cannula 2.00 40 12/17/17 17:03 97.9 96 20 148/81 96 12/17/17 17:00 96 12/17/17 16:36 97.5 97 20 153/81 95 12/17/17 16:00 92 12/17/17 15:58 97.6 93 20 156/78 (104) 96 12/17/17 15:00 96 12/17/17 14:57 94 Nasal Cannula 2.00 12/17/17 14:00 96 I/O 12/17/17 12/17/17 12/17/17 12/18/17 12/18/17 12/18/17 07:00 15:00 23:00 07:00 15:00 23:00 Intake Total 100 ml 1049 ml 1200 ml 100 ml Output Total 100 ml 1125 ml 325 ml Balance 0 ml -76 ml 875 ml 100 ml Intake Oral 295 ml 400 ml IV Total 100 ml 800 ml 100 ml Packed Cells 754 ml Output Urine Total 975 ml 250 ml Drainage Total 100 ml 150 ml 75 ml # Voids 2 2 # Bowel Movements 0 Laboratory Laboratory Tests Test 12/17/17 13:30 12/17/17 20:31 12/18/17 05:08 Hemoglobin 6.8 8.1 7.6 Hematocrit 21.2 24.5 23.2 Iron Level 70 Total Iron Binding Capacity 196 Percent Iron Saturation 35.7 Ferritin 912 Hepatitis A IgM Antibody NEGATIVE Hepatitis B Surface Antigen NEGATIVE Hepatitis B Core IgM Antibody NEGATIVE Hepatitis C Antibody NEGATIVE White Blood Count 26.1 Red Blood Count 2.49 Mean Corpuscular Volume 93.2 Mean Corpuscular Hemoglobin 30.6 Mean Corpuscular Hemoglobin Concent 32.8 Red Cell Distribution Width 17.7 Platelet Count 217 Mean Platelet Volume 10.0 Neutrophils (%) (Auto) 94.1 Lymphocytes (%) (Auto) 1.7 Monocytes (%) (Auto) 4.0 Eosinophils (%) (Auto) 0.0 Basophils (%) (Auto) 0.2 Neutrophils # (Auto) 24.6 Lymphocytes # (Auto) 0.4 Monocytes # (Auto) 1.0 Eosinophils # (Auto) 0.0 Basophils # (Auto) 0.1 CBC Comment AUTO DIFF Differential Comment AUTO DIFF CONFIRMED Platelet Estimate NORMAL Platelet Morphology Comment ENLARGED Basophilic Stippling FAINT Target Cells 1+ Blood Urea Nitrogen 32 Creatinine 0.83 Random Glucose 166 Total Protein 5.5 Albumin 2.4 Calcium Level 9.3 Alkaline Phosphatase 172 Aspartate Amino Transf (AST/SGOT) 126 Alanine Aminotransferase (ALT/SGPT) 109 Total Bilirubin 7.5 Sodium Level 148 Potassium Level 3.1 Chloride Level 109 Carbon Dioxide Level 32.5 Anion Gap 7 Estimat Glomerular Filtration Rate 89 Date/Time Source Procedure Growth Status 12/15/17 19:58 Blood Peripheral Aerobic Blood Culture - Preliminary NO GROWTH IN 3 DAYS Resulted 12/15/17 19:58 Blood Peripheral Anaerobic Blood Culture - Preliminary NO GROWTH IN 3 DAYS Resulted 12/04/17 00:42 Fluid Bile Fluid Gram Stain - Final Complete 12/04/17 00:42 Body Fluid Culture - Final Marielle Albicans Complete 12/16/17 12:53 Urine Clean Catch Legionella Antigen - Final PRESUMPTIVE NEGATIVE FOR LEGIONELLA P... Complete 12/16/17 12:53 Urine Clean Catch Streptococcus pneumoniae Antigen (M - Final PRESUMPTIVE NEGATIVE FOR STREPTOCOCCU... Complete 12/14/17 00:30 Wound Abdomen Gram Stain - Final Complete 12/14/17 00:30 Wound Abdomen Wound Culture - Final NO GROWTH IN 72 HRS.--AEROBICALLY OR ... Complete Imaging Last Impressions Chest X-Ray 12/17/17 0700 Signed Impressions: Service Date/Time: Sunday, December 17, 2017 08:29 - CONCLUSION: Patch infiltrates bilaterally right worse and left, unchanged.. Manuel Jarquin MD Cholangiogram 12/16/17 0000 Signed Impressions: Service Date/Time: Saturday, December 16, 2017 17:07 - CONCLUSION: There is no drainage catheter complication. The patient does not have significant accumulation of abdominal ascites along the liver surface to potentially exacerbate fluid leakage along the tube tract. The fluid drainage appears to be benign serosanguinous. Dressing changes p.r.n. recommended. Landry Mitchell MD Abdomen Ultrasound 12/14/17 0000 Signed Impressions: Service Date/Time: Thursday, December 14, 2017 09:01 - CONCLUSION: Limited study due to bandages on the abdomen and bowel gas. Focal fatty infiltration right lobe of liver again seen. Gallbladder appears collapsed. Minimal ascites. Jerry Laureano MD Abdomen X-Ray 12/13/17 0000 Signed Impressions: Service Date/Time: Wednesday, December 13, 2017 18:55 - CONCLUSION: Nothing acute demonstrated. Nonobstructive bowel gas pattern and no free air. Evidence of right upper quadrant surgery and a internal/external biliary drainage catheter again noted. Landry Ryan MD Abdomen/Pelvis CT 12/11/17 0000 Signed Impressions: Service Date/Time: December 23:42 - CONCLUSION: 1. There has been interval development of diffuse pancreatitis. There is diffuse inflammatory changes surrounding the pancreas. 2. The previously noted fluid adjacent to the liver has resolved. 3. There is an internal/external biliary drainage catheter in place which appears to be in good position and unchanged in position compared to the prior study. 4. There is a small amount of free fluid deep in the pelvis. 5. Small bilateral pleural effusions. Nathen Ruano MD Head CT 12/09/17 0000 Signed Impressions: Service Date/Time: Saturday, December 09, 2017 20:02 - CONCLUSION: Negative noncontrast head CT. Landry Ryan MD Bile Duct Drainage 12/03/17 0000 Signed Impressions: Service Date/Time: Sunday, December 03, 2017 14:10 - CONCLUSION: Uncomplicated biliary stent placement as above. Bj Hurtado MD Cholangiopancreatography MRI 12/02/17 0000 Signed Impressions: Service Date/Time: Saturday, December 02, 2017 08:17 - CONCLUSION: 1. Significant dilatation of the intrahepatic ducts ending at the confluence and possibility of stricture at this site or a Klatskin's tumor which is not visualized should be entertained. 2. Wedge-shaped focal fat right hepatic lobe. Luz Jean MD Physical Exam HEENT: Normocephalic; atraumatic CHEST: End expiratory wheezing CARDIAC: RRR ABDOMEN: Soft and nondistended some tenderness no rebound or guarding, bowel sounds active. Biliary drain with 100mL in drainage bag. EXTREMITIES: No clubbing, cyanosis, or edema. SKIN: + jaundice. 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 Capsular tear liver, s/p ex lap and control liver laceration bleed Anemia, stable 9.1, Alk. Phos, 148 decreased, Bilirubin mild elevated 6.2, LFT 62/50 CT 12/11/17, Pancreatits with inflammatory change persists. Drain good placement ( Will order liver mccarthy to assess other etiologies for elevated LFTs ([place], AMA, ASMA, ceruloplasmin, alpha-1 antitrypsin, celiac panel), Hepatitis panel negative LFTs 126/109, total Bilirubin 7.5, alt. phos mild decreased 172, WBC ct. 26.1 Plan: - IR consult for forceps biopsy of Katzin's tumor- this pm, completed without complications. - Liver workup, partial labs pending - Monitor biliary drain output, New drain in in IR. - Monitor labs, Biopsies done today pending - Transfuse as needed - Supportive care, Full Code Status - Further recommendations to follow based on results of above Pt has been seen and examined by myself and Dr. Stanton and this note has been written on his behalf (Apoorva Quevedo) Physician Comments Patient was seen and examined Agree with above Continue with current supportive care Monitor labs Await pathology (Carlton Stanton MD) Apoorva Quevedo Dec 18, 2017 13:32 Carlton Stanton MD Dec 18, 2017 22:21
[2017-12-18] MEDS ORDERED: MIDAZOLAM HCL 2 MG/2 ML VIAL ONE ×4 (13:35→14:23)
--- NOTE | 2017-12-18 13:48 | HHI.FPPN ---
Subjective Remarks Mr Rios was a little anxious last night. He tried calling home twice with concern for his . His RR was increased as well and persists today. He received 1uPRBCs yesterday afternoon for low Hgb and blood oozing around his biliary drain. Today he has biliary drainage soaking the bandage around the drain and the drain bag has approx 200 ml of dark looking fluid that likely contains blood. He is set to get a tumor biopsy today and IR will look at his drain when they perform this procedure. Denies pain and is a little more alert today. (Pascual Valero MD R1) Objective Vitals Vital Signs Date Time Temp Pulse Resp B/P (MAP) Pulse Ox O2 Delivery O2 Flow Rate FiO2 12/18/17 11:00 Nasal Cannula 2.00 12/18/17 11:00 87 12/18/17 09:01 96 Nasal Cannula 2.00 12/18/17 08:19 97.6 87 36 142/73 (96) 95 12/18/17 06:00 88 12/18/17 05:00 86 12/18/17 04:00 98.2 92 30 150/84 (106) 96 12/18/17 04:00 90 12/18/17 03:00 80 12/18/17 02:00 80 12/18/17 01:00 88 12/18/17 00:00 86 12/18/17 00:00 97.3 88 30 152/81 (104) 96 12/17/17 23:53 96 Nasal Cannula 2.00 12/17/17 23:00 90 12/17/17 22:00 92 12/17/17 21:00 88 12/17/17 20:00 97.4 87 30 165/85 (111) 96 12/17/17 20:00 89 12/17/17 19:34 Nasal Cannula 2.00 40 12/17/17 17:03 97.9 96 20 148/81 96 12/17/17 17:00 96 12/17/17 16:36 97.5 97 20 153/81 95 12/17/17 16:00 92 12/17/17 15:58 97.6 93 20 156/78 (104) 96 12/17/17 15:00 96 12/17/17 14:57 94 Nasal Cannula 2.00 12/17/17 14:00 96 I/O 12/17/17 12/17/17 12/17/17 12/18/17 12/18/17 12/18/17 07:00 15:00 23:00 07:00 15:00 23:00 Intake Total 100 ml 1049 ml 1200 ml 100 ml Output Total 100 ml 1125 ml 325 ml Balance 0 ml -76 ml 875 ml 100 ml Intake Oral 295 ml 400 ml IV Total 100 ml 800 ml 100 ml Packed Cells 754 ml Output Urine Total 975 ml 250 ml Drainage Total 100 ml 150 ml 75 ml # Voids 2 2 # Bowel Movements 0 (Pascual Valero MD R1) Result Diagram: 12/18/17 0508 12/18/17 0508 Objective Remarks GENERAL: Ill-appearing, mildly jaundiced obese patient, lying in bed, eyes open ; answering intermittently to questions SKIN: Warm and damp. No lesions. HEAD: Normocephalic. Atraumatic. EYES: Mild scleral icterus. No injection or drainage. CARDIOVASCULAR: Regular rate and rhythm without murmur, gallop, or rub. RESPIRATORY: Mild expiratory wheezing anteriorly with right side worse than left. GASTROINTESTINAL: Abdomen obese, not tender to palpation but patient was awake. No guarding. BS hypoactive. No guarding. Transverse laparotomy scar over RUQ closed with adrienne removed is c/d/i with no induration or fluctuance. Biliary drain in place on right lateral abdomen with small amount of green bilious drainage inside the bandage and approx 200ml dark fluid in the drain bag. EXTREMITIES: No cyanosis. SCDs in place. NEUROLOGICAL: Oriented to self Procedures 12/04/17 - Exploratory laparotomy, liver laceration repair 12/03/17 - Biliary drainage Medications and IVs Current Medications Medications (Trade) Dose Ordered Sig/Rafa Route Start Time Stop Time Status Last Admin (NS Flush) 2 ml UNSCH PRN IV FLUSH 12/01/17 11:00 (NS Flush) 2 ml BID IV FLUSH 12/01/17 21:00 12/18/17 08:19 (Zofran Inj) 4 mg Q6H PRN IVP 12/01/17 11:00 12/16/17 06:18 ([place] 5-325 Mg) 1 tab Q4H PRN PO 12/01/17 11:00 ([place] 10-325 Mg) 1 tab Q4H PRN PO 12/01/17 11:00 12/14/17 13:48 (Narcan Inj) 0.4 mg UNSCH PRN IV PUSH 12/01/17 11:00 (Deedee-Colace) 1 tab BID PO 12/01/17 21:00 12/18/17 08:02 (Milk Of Magnesia Liq) 30 ml Q12H PRN PO 12/01/17 11:00 12/09/17 05:20 (Senokot) 17.2 mg Q12H PRN PO 12/01/17 11:00 (Dulcolax Supp) 10 mg DAILY PRN RECTAL 12/01/17 11:00 (Lactulose Liq) 30 ml DAILY PRN PO 12/01/17 11:00 (Proscar) 5 mg DAILY PO 12/02/17 09:00 Future hold 12/18/17 08:01 (Deltasone) 5 mg DAILY PO 12/02/17 09:00 Future Hold 12/15/17 11:52 (Peridex 0.12% Liq) 15 ml BID@08,20 MT 12/04/17 08:00 12/08/17 20:00 Fluconazole/ Sodium Chloride 200 ml @ 100 mls/hr Q24H IV 12/06/17 17:00 12/17/17 23:35 (Albuterol Neb) 2.5 mg Q2HR NEB PRN NEB 12/05/17 22:00 (Synthroid) 100 mcg DAILY@0600 PO 12/08/17 06:00 12/18/17 06:00 (Melatonin) 5 mg HS PRN PO 12/07/17 21:00 12/17/17 23:20 (Tylenol) 500 mg Q6H PRN PO 12/08/17 08:30 (Protonix Inj) 40 mg DAILY IV PUSH 12/10/17 09:00 12/18/17 08:01 (Lactulose Liq) 30 ml DAILY PO 12/11/17 09:00 12/18/17 08:01 (Lopressor) 25 mg Q8H PO 12/11/17 16:00 12/18/17 08:02 (Pulmicort Respule Neb) 0.5 mg Q12HR NEB NEB 12/12/17 09:45 12/18/17 08:58 (KCl) 20 meq DAILY PO 12/14/17 09:00 12/18/17 08:02 (Actigall) 300 mg Q12HR PO 12/13/17 21:00 12/18/17 08:02 Albumin Human 50 ml @ 60 mls/hr Q12H IV 12/14/17 12:00 12/18/17 12:20 (Lasix Inj) 20 mg DAILY@1215 IV PUSH 12/14/17 12:15 12/18/17 12:15 Piperacillin Sod/ Tazobactam Sod 3.375 gm/Sodium Chloride 50 ml @ 100 mls/hr Q6H IV 12/15/17 04:00 12/18/17 08:02 (Duoneb Neb) 1 ampule Q4HR NEB NEB 12/15/17 16:00 12/18/17 12:13 (SoluMEDROL INJ) 40 mg Q8HR IV PUSH 12/15/17 22:00 12/18/17 06:00 Pharmacy Profile Note 0 ml @ 0 mls/hr UNSCH OTHER 12/15/17 13:15 Levofloxacin/ Dextrose 150 ml @ 100 mls/hr Q24H IV 12/15/17 14:00 12/17/17 13:48 Vancomycin HCl 1750 mg/Sodium Chloride 517.5 ml @ 257.5 mls/ hr Q24H IV 12/15/17 15:00 12/17/17 17:01 (Morphine Inj) 1 mg Q4H PRN IV PUSH 12/15/17 16:15 Potassium Chloride/Dextrose/ Sod Cl 1,000 ml @ 50 mls/hr Q20H IV 12/15/17 17:00 12/18/17 05:00 (Pascual Valero MD R1) Urinary Catheter: No (Pascual Valero MD R1) A/P Assessment and Plan 82 yo male with h/o PMR, BPH, hyperlipidemia presented with RUQ pain and UTI and 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 Following IR biliary stent and drainage on 12/03, pt found to have liver laceration and hemorrhage causing hemoperitoneum. Exploratory laparotomy performed emergently on 12/04 requiring 6u PRBCs, 1u FFP and 1u Cryo with EBL 2L. Following surgery, pt was sent to ICU for management and showed improvement but still with persistently elevated WBC. He was found to have pancreatitis on CT scan but lipase and amylase were not elevated. His biliary drain was investigated on 12/16/16 due to leaking and was found to be working properly. Pt given 1uPRBCs from blood loss anemia on 12/17 and H/H improved to 8.1/24.5. Pt was anxious overnight but no acute medical events. Blood cx and sputum cx NGTD. IR taking to OR today for Bx and we are awaiting results to consider further workup. Pt appears to have deteriorated overnight somewhat. His RR has increased and he looks clammy. Will discuss with IR options to mitigate. Seen and examined with Taco Landry and Anna Marie Boucher Discharge Planning Anticipate discharge once patient is clinically stable, time frame unclear. (Pascual Valero MD R1) Attending Attestation Patient seen and examined. Case reviewed and discussed with the resident team. Agree with plan of care as discussed with me and documented in the resident note. (Elena Landry MD) Problem List: (1) Pneumonia ICD Codes: J18.9 - Pneumonia, unspecified organism Plan: Pneumonia vs atelectasis on CXR -Mild hazy density in the right lung and left base on 12/16/16 PA/lat chest x-ray -Continue Zosyn 3.375 g IV every 6 hours (since 12/01/17) and Levaquin 750 mg every 24 hours IV (12/15-) and Vancomycin 1,750mg IV q24h (12/15-)per ID -Patient also on fluconazole 400mg IV q24h - (since 12/06/17) -Continue Solumedrol 40mg IV q8h -Continue Duonebs q4h scheduled -Continue albuterol nebs q2h PRN -Pulmicort 0.5mg nebs (2) Liver hemorrhage ICD Codes: K76.89 - Other specified diseases of liver Status: Acute Plan: -POD#14 ex lap on 12/04 for liver laceration -Stable -Continue pain control as needed (3) Abdominal pain ICD Codes: R10.9 - Unspecified abdominal pain Status: Acute Plan: Stable -IR re-assessed biliary drain on 12/16/16 and it was determined to be working properly -GI awaiting results of tumor bx before proceeding further * No plan for EUS until resolution of pancreatitis [place] and morphine IV as needed for pain CT findings as below MRCP findings as below CT of the abdomen and pelvis: 12/04/17: Moderate volume hemoperitoneum. Interval placement of a right internal/external earlier a drainage catheter. Drain good position. CT of the abdomen and pelvis: 12/11/17: 1. Interval development of diffuse pancreatitis. Diffuse inflammatory changes surrounding the pancreas. 2. Previously noted fluid adjacent to the liver has resolved. 3. Internal/external biliary drainage catheter in place which appears to be in good position and unchanged in position compared to the prior study. 4. Small amount of free fluid deep in the pelvis. 5. Small bilateral pleural effusions. MRCP: 12/02/17: Significant dilation of the intrahepatic ducts ending in the confluence and possibility of stricture at the site or a lack since tumor which is not visualized should be entertained. Wedge-shaped focal fat right hepatic lobe Plan angiogram: 12/16/16: No drainage catheter complication, dressing changes when necessary -12/18: Pt going to IR to get tumor bx today (4) Leukocytosis ICD Codes: D72.829 - Elevated white blood cell count, unspecified Status: Acute Plan: Possible leukemoid reaction - down to 26.1 today -Transition to PO Abx when WBC improves per ID -Wound cx of biliary drain fluid NGTD Heme/onc consult reveals likely due to infection -B12 high 2000 /folate wnl -heme occult/Edison ordered (5) Anemia ICD Codes: D64.9 - Anemia, unspecified Plan: -H/H 7.1/21.9 and s/p 1uPRBCs 8.1/24.5 -Monitoring serial H/H -Plan to transfuse if Hgb <7.0 (6) Polymyalgia rheumatica ICD Codes: M35.3 - Polymyalgia rheumatica Status: Chronic Plan: Holding prednisone 5 mg daily, on Solumedrol 40 mg IV bid (7) BPH (benign prostatic hyperplasia) ICD Codes: N40.0 - Benign prostatic hyperplasia without lower urinary tract symptoms Status: Chronic Plan: -Continue home finasteride (8) Hypothyroidism ICD Codes: E03.9 - Hypothyroidism, unspecified Status: Chronic Plan: Continue home Synthroid 100 mcg daily (9) FEN/PPX Plan: Fluids: holding fluids due to being overloaded, diuresis with lasix, encourage by mouth intake Electrolytes: Monitor and replace PRN Nutrition: Diet per speech therapy and nutrition DVT: SCDs, holding pharmacologic prophylaxis due to acute bleed (Pascual Valero MD R1) Problem Qualifiers (1) Abdominal pain: Qualified Codes: R10.11 - Right upper quadrant pain (2) Leukocytosis: Qualified Codes: D72.829 - Elevated white blood cell count, unspecified (3) BPH (benign prostatic hyperplasia): Qualified Codes: N40.0 - Benign prostatic hyperplasia without lower urinary tract symptoms (4) Hypothyroidism: Qualified Codes: E03.9 - Hypothyroidism, unspecified Pascual Valero MD R1 Dec 18, 2017 13:47 Elena Landry MD Dec 22, 2017 14:33
[2017-12-18] MEDS ORDERED: PHARMACY ORDERED LAB ONE (14:45)
[2017-12-18] MEDS ORDERED: IOHEXOL 350 MG/ML 50 ML BTL (for RAD DIAG) OTHER ONE (15:01)
--- NOTE | 2017-12-18 15:39 | HHI.PR ---
Addendum to Inpatient Note Additional Information attempted to see the pt - he is in procedure Brigette Gill MD Dec 18, 2017 15:39
[2017-12-18] MEDS: LEVOFLOXACIN 750 MG PREMIX INJ 150 ML IV SCH (16:31)
--- NOTE | 2017-12-18 16:32 | RADRPT ---
EXAM DATE/TIME: 12/18/2017 14:47 [facility] COMPARISON: No previous studies available for comparison. 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 MEDICAL HISTORY : HLD, BPH, Polymyalgia rheumatica, Benign polyps, GERD, Gallstones, Kidney stones, Asthma SURGICAL HISTORY : Cervical and lumbar fusion, Biliary drain ENCOUNTER: Subsequent ACUITY: 3 weeks PAIN SCORE: 7/10 LOCATION: Right flank FLUORO TIME: 14.2 minutes IMAGE SERIES: 1 SEDATION TIME: 45 minutes CONTRAST: 20 cc Omnipaque (iohexol) 350 MEDICATION(S): 1.) 6 mg midazolam (Versed) IV 2.) 300 mcg fentanyl (Sublimaze) IV DEVICE(S): 1.) 10 Guatem[place] X35CM biliary drain 2.) 5.2F Biopsy forceps Tissue Samples were obtained and sent to the laboratory for evaluation. PROCEDURE : 1. fluoroscopic-guided forceps biopsy of bile duct 2. Biliary drainage catheter exchange 3. Conscious sedation with continuous EKG and Oximetry monitoring. The risks, benefits and alternatives to the procedure were explained and verbal and written consent w as obtained. The site was prepped in sterile fashion. Full sterile technique was used, including ca p, mask, sterile gloves and gown and a large sterile sheet. Hand hygiene and 2% chlorhexidine prep w as utilized per protocol for cutaneous antisepsis with appropriate dry time for site. The skin and s ubcutaneous tissues were infiltrated with local anesthetic solution. Under direct fluoroscopic guidance, an angled Glidewire was manipulated through the patient's existin g maurizio drainage catheter and into the small bowel to maintain stable access. The drainage catheter wa s removed intact. A 7 [place] vascular sheath was inserted and positioned into the intrahepatic biliar y tree. Tube cholangiogram was performed to porter the bile ducts for biopsy. A forceps biopsy catheter was introduced and used to obtain several biopsy specimens from the bile duct confluence and site of a obstructing stricture. Multiple small fragments were submitted in formalin for pathologic evaluati on. Following this, a new 10 [place] internal/external biliary drainage catheter was introduced and fo rmed up with distal loop in the second portion of the duodenum and sideholes extending up into the ri ght lobe intrahepatic ducts. The catheter was secured and connected to gravity drainage. Conscious sedation was performed with the prescribed dosages and duration as above in the presence of an independent trained radiology nurse to assist in the monitoring of the patient. EKG and oximetry remained stable throughout the procedure. CONCLUSION: Uncomplicated fluoroscopic guided biliary forceps biopsy and internal/external drainage catheter exch salvatore as described in detail above Landry Mitchell MD on December 18, 2017 at 16:25 Board Certified Radiologist. This report was verified electronically.
[2017-12-18 16:34] LABS: HEMATOCRIT 26.4 % (39.0-51.0); HEMOGLOBIN 8.6 GM/DL (13.0-17.0)
[2017-12-18] MEDS: ACETAMINOPHEN/HYDROcodone 325 MG/10 MG TAB PO PRN (16:36)
[2017-12-18] MEDS: VANCOMYCIN INJ 1,750 MG in SODIUM CHLORID 0.9% 500 ML INJ 500 ML IV SCH (16:51)
[2017-12-18] MEDS: FLUCONAZOLE 400 MG PREMIX BAG 200 ML IV SCH (19:15)
[2017-12-19] VITALS (15 sets, daily range): BP systolic 134–161; BP diastolic 73–93; PULSE 74–89; RESP 16–24; TEMP 97.6–98.5; O2SAT 96–98
[2017-12-19] MEDS: METOPROLOL TARTRATE 25 MG TAB PO SCH ×3 (00:08→17:12)
[2017-12-19] MEDS: ALBUMIN 25% INJ 50 ML IV SCH ×2 (00:09→13:00)
[2017-12-19] MEDS: D5-1/2 NS + KCL 20 MEQ INJ 1,000 ML IV SCH ×2 (00:10→21:00)
[2017-12-19] MEDS: RESP: ALBUTEROL 2.5 MG/IPRATROPIUM 0.5 MG NEB (SCH) NEB ×2 (03:33→08:50)
[2017-12-19] MEDS: PIPERACILLIN/TAZ 3.375 GM VIAL 3.375 GM in SODIUM CHLORIDE 0.9% INJ 50 ML IV SCH ×4 (03:38→21:10)
[2017-12-19 06:30] LABS: AUTOMATED NEUTROPHIL # 19.5 TH/MM3 (1.8-7.7); BASOPHIL % 0.1 % (0.0-2.0); HEMATOCRIT 22.7 % (39.0-51.0); HEMOGLOBIN 7.3 GM/DL (13.0-17.0); LYMPH % 1.6 % (9.0-44.0); LYMPHOCYTE # 0.3 TH/MM3 (1.0-4.8); MEAN CELL VOLUME 93.9 FL (80.0-100.0); MEAN CORPUSCULAR HEMOGLOBIN 30.3 PG (27.0-34.0); MEAN CORPUSCULAR HGB CONC 32.3 % (32.0-36.0); MEAN PLATELET VOLUME 9.7 FL (7.0-11.0); MONO % 3.4 % (0.0-8.0); MONOCYTE # 0.7 TH/MM3 (0-0.9); NEUT % 94.9 % (16.0-70.0); PLATELET COUNT 210 TH/MM3 (150-450); RED BLOOD COUNT 2.41 MIL/MM3 (4.50-5.90); RED CELL DISTRIBUTION WIDTH 18.3 % (11.6-17.2); WHITE BLOOD COUNT 20.6 TH/MM3 (4.0-11.0)
[2017-12-19] MEDS: LEVOTHYROXINE SODIUM 100 MCG TAB PO SCH (06:51)
[2017-12-19] MEDS: methylPREDNISolone SOD SUCC 40 MG/1 ML VIAL IV PUSH SCH ×2 (06:52→21:09)
[2017-12-19 07:00] LABS: ALBUMIN 2.5 GM/DL (3.4-5.0); AST (GOT) 167 U/L (15-37); BLOOD UREA NITROGEN 27 MG/DL (7-18); CALCIUM 9.7 MG/DL (8.5-10.1); CHLORIDE 109 MEQ/L (98-107); CREATININE 0.78 MG/DL (0.60-1.30); GLOMERULAR FILTRATION RATE 96 ML/MIN (>89); GLUCOSE,RANDOM 151 MG/DL (74-106); SODIUM (NA) 150 MEQ/L (136-145)
[2017-12-19 07:01] LABS: ALT (GPT) 160 U/L (12-78)
[2017-12-19 07:03] LABS: ALKALINE PHOSPHATASE 179 U/L (45-117); TOTAL BILIRUBIN ADULT 9.2 MG/DL (0.2-1.0); TOTAL PROTEIN 5.3 GM/DL (6.4-8.2)
[2017-12-19 07:59] LABS: STOMATOCYTES 1+ (NORMAL)
[2017-12-19] MEDS: CHLORHEXIDINE 0.12% (ORAL KIT) 15 ML CUP MT SCH ×2 (08:00→20:00)
[2017-12-19] MEDS: RESP: BUDESONIDE 0.5 MG/2 ML NEB NEB SCH ×2 (08:50→22:10)
--- NOTE | 2017-12-19 10:08 | RADRPT ---
EXAM DATE/TIME: 12/19/2017 09:31 [facility] COMPARISON: CHEST PA & LAT, December 17, 2017, 8:29. INDICATIONS : Short of breath. MEDICAL HISTORY : None. Cardiovascular disease. Renal calculi SURGICAL HISTORY : Biliary stent placement. Laparotomy ENCOUNTER: Subsequent ACUITY: 3 days PAIN SCORE: 0/10 LOCATION: Bilateral chest FINDINGS: Patchy infiltrates persist again slightly more prominent on the right than the left without progressi on. No new infiltrates. CONCLUSION: Stable pulmonary infiltrates Temo Banegas MD on December 19, 2017 at 10:06 Board Certified Radiologist. This report was verified electronically.
[2017-12-19] MEDS: LACTULOSE SYRUP 20 GM/30 ML CUP PO SCH (10:13)
[2017-12-19] MEDS: PANTOPRAZOLE SODIUM 40 MG VIAL IV PUSH SCH (10:14)
[2017-12-19] MEDS: POTASSIUM CHLORIDE 20 MEQ CONTROLLED RELEASE TAB PO SCH (10:16)
[2017-12-19] MEDS: URSODIOL 300 MG CAP PO SCH ×2 (10:16→21:09)
[2017-12-19] MEDS: FINASTERIDE 5 MG TAB PO SCH (10:17)
[2017-12-19] MEDS: DOCUSATE SODIUM 50 MG/SENNA 8.6 MG TAB PO SCH ×2 (10:17→21:09)
[2017-12-19] MEDS: SODIUM CHLORIDE 0.9% FLUSH 10 ML FLUSH IV FLUSH SCH ×2 (10:18→21:09)
--- NOTE | 2017-12-19 10:23 | HHI.FPPN ---
Subjective Remarks Mr Rios indicates he slept well but nursing reports he was confused overnight and incontinent of urine. His RR is improved today to a normal rate but is requiring accessory muscle use. He denies pain but his BP has been elevated to 161/93. His reports he was sleeping when she came in but woke on his own and told her he was drifting and trying to get back to normal again. Denies CP, SOB and DVT pain. (Pascual Valero MD R1) Objective Vitals Vital Signs Date Time Temp Pulse Resp B/P (MAP) Pulse Ox O2 Delivery O2 Flow Rate FiO2 12/19/17 08:53 2.00 12/19/17 06:00 80 12/19/17 05:00 80 12/19/17 04:00 98.2 83 24 161/93 (115) 97 12/19/17 04:00 84 12/19/17 03:00 76 12/19/17 02:00 84 12/19/17 01:00 86 12/19/17 00:00 98.1 88 20 153/78 (103) 96 12/19/17 00:00 84 12/18/17 23:36 96 Nasal Cannula 2.00 12/18/17 23:00 87 12/18/17 22:00 88 12/18/17 21:00 92 12/18/17 20:07 96 2.00 12/18/17 20:00 97.6 91 30 158/84 (108) 96 12/18/17 20:00 82 12/18/17 19:00 96 2.00 12/18/17 19:00 85 12/18/17 18:00 88 12/18/17 17:00 90 12/18/17 16:00 98.0 84 18 169/89 (115) 96 12/18/17 16:00 86 12/18/17 15:45 90 20 161/95 (117) 94 12/18/17 15:15 90 18 160/87 (111) 93 12/18/17 15:07 97.7 84 20 146/77 (100) 92 12/18/17 14:20 98.7 98 32 149/82 (104) 12/18/17 14:20 98 12/18/17 11:00 Nasal Cannula 2.00 12/18/17 11:00 87 I/O 12/18/17 12/18/17 12/18/17 12/19/17 12/19/17 12/19/17 07:00 15:00 23:00 07:00 15:00 23:00 Intake Total 1200 ml 100 ml 150 ml 240 ml Output Total 325 ml 100 ml 525 ml Balance 875 ml 100 ml 50 ml -285 ml Intake Oral 400 ml 240 ml IV Total 800 ml 100 ml 150 ml Output Urine Total 250 ml 100 ml 425 ml Drainage Total 75 ml 100 ml # Voids 2 2 # Bowel Movements 2 (Pascual Valero MD R1) Result Diagram: 12/19/17 0546 12/19/17 0546 Imaging Last 24 hours Impressions Chest X-Ray 12/19/17 0600 Signed Impressions: Service Date/Time: Tuesday, December 19, 2017 09:31 - CONCLUSION: Stable pulmonary infiltrates Temo Banegas MD Objective Remarks GENERAL: Ill-appearing, mildly jaundiced obese patient, lying in bed, eyes open ; answering intermittently to questions SKIN: Warm and damp. No lesions. HEAD: Normocephalic. Atraumatic. EYES: Mild scleral icterus. No injection or drainage. CARDIOVASCULAR: Regular rate and rhythm without murmur, gallop, or rub. RESPIRATORY: Mild expiratory wheezing anteriorly with right side worse than left. GASTROINTESTINAL: Abdomen obese, not tender to palpation but patient was awake. No guarding. BS hypoactive. No guarding. Transverse laparotomy scar over RUQ closed with adrienne removed is c/d/i with no induration or fluctuance. Biliary drain in place on right lateral abdomen with small amount of green bilious drainage inside the bandage and approx 200ml dark fluid in the drain bag. EXTREMITIES: No cyanosis. SCDs in place. 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 and biopsy of mass Medications and IVs Current Medications Medications (Trade) Dose Ordered Sig/Rafa Route Start Time Stop Time Status Last Admin (NS Flush) 2 ml UNSCH PRN IV FLUSH 12/01/17 11:00 (NS Flush) 2 ml BID IV FLUSH 12/01/17 21:00 12/19/17 10:18 (Zofran Inj) 4 mg Q6H PRN IVP 12/01/17 11:00 12/16/17 06:18 ([place] 5-325 Mg) 1 tab Q4H PRN PO 12/01/17 11:00 ([place] 10-325 Mg) 1 tab Q4H PRN PO 12/01/17 11:00 12/14/17 13:48 (Narcan Inj) 0.4 mg UNSCH PRN IV PUSH 12/01/17 11:00 (Deedee-Colace) 1 tab BID PO 12/01/17 21:00 12/19/17 10:17 (Milk Of Magnesia Liq) 30 ml Q12H PRN PO 12/01/17 11:00 12/09/17 05:20 (Senokot) 17.2 mg Q12H PRN PO 12/01/17 11:00 (Dulcolax Supp) 10 mg DAILY PRN RECTAL 12/01/17 11:00 (Lactulose Liq) 30 ml DAILY PRN PO 12/01/17 11:00 (Proscar) 5 mg DAILY PO 12/02/17 09:00 Future hold 12/19/17 10:17 (Deltasone) 5 mg DAILY PO 12/02/17 09:00 Future Hold 12/15/17 11:52 (Peridex 0.12% Liq) 15 ml BID@08,20 MT 12/04/17 08:00 12/08/17 20:00 Fluconazole/ Sodium Chloride 200 ml @ 100 mls/hr Q24H IV 12/06/17 17:00 12/18/17 19:15 (Albuterol Neb) 2.5 mg Q2HR NEB PRN NEB 12/05/17 22:00 (Synthroid) 100 mcg DAILY@0600 PO 12/08/17 06:00 12/19/17 06:51 (Melatonin) 5 mg HS PRN PO 12/07/17 21:00 12/17/17 23:20 (Tylenol) 500 mg Q6H PRN PO 12/08/17 08:30 (Protonix Inj) 40 mg DAILY IV PUSH 12/10/17 09:00 12/19/17 10:14 (Lactulose Liq) 30 ml DAILY PO 12/11/17 09:00 12/19/17 10:13 (Lopressor) 25 mg Q8H PO 12/11/17 16:00 12/19/17 10:17 (Pulmicort Respule Neb) 0.5 mg Q12HR NEB NEB 12/12/17 09:45 12/19/17 08:50 (KCl) 20 meq DAILY PO 12/14/17 09:00 12/19/17 10:16 (Actigall) 300 mg Q12HR PO 12/13/17 21:00 12/19/17 10:16 Albumin Human 50 ml @ 60 mls/hr Q12H IV 12/14/17 12:00 12/19/17 00:09 (Lasix Inj) 20 mg DAILY@1215 IV PUSH 12/14/17 12:15 12/18/17 12:15 Piperacillin Sod/ Tazobactam Sod 3.375 gm/Sodium Chloride 50 ml @ 100 mls/hr Q6H IV 12/15/17 04:00 12/19/17 10:18 (Duoneb Neb) 1 ampule Q4HR NEB NEB 12/15/17 16:00 12/19/17 08:50 (SoluMEDROL INJ) 40 mg Q8HR IV PUSH 12/15/17 22:00 12/19/17 06:52 Pharmacy Profile Note 0 ml @ 0 mls/hr UNSCH OTHER 12/15/17 13:15 Levofloxacin/ Dextrose 150 ml @ 100 mls/hr Q24H IV 12/15/17 14:00 12/18/17 16:31 (Morphine Inj) 1 mg Q4H PRN IV PUSH 12/15/17 16:15 Potassium Chloride/Dextrose/ Sod Cl 1,000 ml @ 50 mls/hr Q20H IV 12/15/17 17:00 12/18/17 05:00 (Roxicodone) 5 mg Q8H PO 12/18/17 17:00 12/19/17 10:15 Vancomycin HCl 2000 mg/Sodium Chloride 520 ml @ 250 mls/hr Q24H IV 12/19/17 17:00 Miscellaneous Information SPECIFIC LAB TO BE ROYER... 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 Following IR biliary stent and drainage on 12/03, pt found to have liver laceration and hemorrhage causing hemoperitoneum. Exploratory laparotomy performed emergently on 12/04 requiring 6u PRBCs, 1u FFP and 1u Cryo with EBL 2L. Following surgery, pt was sent to ICU for management and showed improvement but still with persistently elevated WBC. He was found to have pancreatitis on CT scan but lipase and amylase were not elevated. His biliary drain was investigated on 12/16/16 due to leaking and was found to be working properly. 12/19: Given 1uPRBCs from blood loss anemia 12/17 w/Hgb 6.8 and H/H improved to 8.1/24.5. Today H/H 7.3/22.7; will do f/u H/H 1PM and will transfuse 1uPRBCs if <7.0. BP elevated to 161/93, confused overnight and incontinent of urine. Getting scheduled oxycodone q8h for pain control now and pt w/o complaint for pain. IR took biopsies of stricture and mass surrounding stricture yesterday and we are awaiting results to consider further workup. Pt appears to be improved wrt RR but still using accessory muscles of neck; is not clammy today; and is resting more comfortably. CXR shows some improvement in PNA. Continues to be afebrile and WBC reduced to 20.6 today. Vanc trough 13.7; continue Zosyn, Vanc, levaquin and diflucan; ID and GI consulted. Will begin tapering prednisone tomorrow pending continued clinical improvement Seen and examined with Taco Landry and Anna Marie Boucher Discharge Planning Anticipate discharge once patient is clinically stable, time frame unclear. (Pascual Valero MD R1) Attending Attestation Patient seen and examined. Case reviewed and discussed Agree with plan of care as discussed with me and documented in the resident note. Pathology pending. Increasing LFTs. Hgb down, will obtain stat CT Abd/Pelvis. at the bedside. Patient, and nurse express understanding. (Elena Landry MD) Problem List: (1) Pneumonia ICD Codes: J18.9 - Pneumonia, unspecified organism Plan: Pneumonia vs atelectasis on CXR -- pt with improved RR, not clammy today , WBC reduced to 20.6, afebrile and lung sounds improved today with anterior coarse breath sounds on right and expiratory wheeze on left and clearer in posterior ferguson. -Mild hazy density in the right lung and left base on 12/16/16 PA/lat chest x- ray --> stable pulmonary infiltrate on CXR 12/18/17 -Continue Zosyn 3.375 g IV every 6 hours (since 12/01/17) and Levaquin 750 mg every 24 hours IV (12/15-) and Vancomycin 1,750mg IV q24h (12/15-)per ID -Patient also on fluconazole 400mg IV q24h - (since 12/06/17) -Change Solumedrol 40mg IV q8h to q12h -Continue Duonebs q4h scheduled -Continue albuterol nebs q2h PRN -Pulmicort 0.5mg nebs (2) Liver hemorrhage ICD Codes: K76.89 - Other specified diseases of liver Status: Acute Plan: -POD#15 ex lap on 12/04 for liver laceration; continues to have blood loss with PLTs 210 from around biliary drain -Stable -Continue pain control as needed -Hgb 7.3 this morning; f/u H&H at 1300 hours; will transfuse 1uPRBCs if Hgb <7.0 (3) Abdominal pain ICD Codes: R10.9 - Unspecified abdominal pain Status: Acute Plan: Stable -12/19: BP elevated overnight to 169/93 but pt not complaining of abdominal pain ; consider hypovolemia/anemia for source of BP elevation -12/18: Cholangiogram and biopsies of stricture and mass outside the stricture; await pathology results; scheduled oxycodone q8h started due to elevated BPs. -IR re-assessed biliary drain on 12/16/16 and it was determined to be working properly; cholangiogram and -GI awaiting results of tumor bx before proceeding further * No plan for EUS until resolution of pancreatitis [place] and morphine IV as needed for pain CT findings as below MRCP findings as below CT of the abdomen and pelvis: 1/4/18: Moderate volume hemoperitoneum. Interval placement of a right internal/external earlier a drainage catheter. Drain good position. CT of the abdomen and pelvis: 12/11/17: 1. Interval development of diffuse pancreatitis. Diffuse inflammatory changes surrounding the pancreas. 2. Previously noted fluid adjacent to the liver has resolved. 3. Internal/external biliary drainage catheter in place which appears to be in good position and unchanged in position compared to the prior study. 4. Small amount of free fluid deep in the pelvis. 5. Small bilateral pleural effusions. MRCP: 12/02/17: Significant dilation of the intrahepatic ducts ending in the confluence and possibility of stricture at the site or a lack since tumor which is not visualized should be entertained. Wedge-shaped focal fat right hepatic lobe (4) Leukocytosis ICD Codes: D72.829 - Elevated white blood cell count, unspecified Status: Acute Plan: Originally considered a Leukemoid rxn with WBCs in 35-50 range; however, Heme believed to be infection and since broadening of abx, WBC has steadily decreased to 20.6 today -Transition to PO Abx when WBC improves per ID -Wound cx of biliary drain fluid NGTD Heme/onc consult reveals likely due to infection -B12 high 2000 /folate wnl -heme occult/[place] ordered (5) Anemia ICD Codes: D64.9 - Anemia, unspecified Plan: Likely 2/2 blood loss -H/H 7.1/21.9 and s/p 1uPRBCs 8.1/24.5 -Hgb 7.3 on 12/19 --> f/u H&H at 1300 hours -Monitoring serial H/H -Plan to transfuse if Hgb <7.0 (6) Polymyalgia rheumatica ICD Codes: M35.3 - Polymyalgia rheumatica Status: Chronic Plan: Holding prednisone 5 mg daily, on Solumedrol 40 mg IV bid (7) BPH (benign prostatic hyperplasia) ICD Codes: N40.0 - Benign prostatic hyperplasia without lower urinary tract symptoms Status: Chronic Plan: -Continue home finasteride (8) Hypothyroidism ICD Codes: E03.9 - Hypothyroidism, unspecified Status: Chronic Plan: Continue home Synthroid 100 mcg daily (9) FEN/PPX Plan: Fluids: holding fluids due to being overloaded, diuresis with lasix, encourage by mouth intake Electrolytes: Monitor and replace PRN Nutrition: Diet per speech therapy and nutrition DVT: SCDs, holding pharmacologic prophylaxis due to acute bleed (Pascual Valero MD R1) Problem Qualifiers (1) Abdominal pain: Qualified Codes: R10.11 - Right upper quadrant pain (2) Leukocytosis: Qualified Codes: D72.829 - Elevated white blood cell count, unspecified (3) BPH (benign prostatic hyperplasia): Qualified Codes: N40.0 - Benign prostatic hyperplasia without lower urinary tract symptoms (4) Hypothyroidism: Qualified Codes: E03.9 - Hypothyroidism, unspecified Pascual Valero MD R1 Dec 19, 2017 10:23 Elena Landry MD Dec 19, 2017 15:05
--- NOTE | 2017-12-19 11:52 | HHI.GIFU ---
Subjective Remarks Able to sit up in chair today Taking a few bites of food with 's assistance Facial and scleral icterus, possible mild improvement on extremities Awake but very weak (Apoorva Quevedo) Objective Vitals I&O Vital Signs Date Time Temp Pulse Resp B/P (MAP) Pulse Ox O2 Delivery O2 Flow Rate FiO2 12/19/17 08:53 2.00 12/19/17 06:00 80 12/19/17 05:00 80 12/19/17 04:00 98.2 83 24 161/93 (115) 97 12/19/17 04:00 84 12/19/17 03:00 76 12/19/17 02:00 84 12/19/17 01:00 86 12/19/17 00:00 98.1 88 20 153/78 (103) 96 12/19/17 00:00 84 12/18/17 23:36 96 Nasal Cannula 2.00 12/18/17 23:00 87 12/18/17 22:00 88 12/18/17 21:00 92 12/18/17 20:07 96 2.00 12/18/17 20:00 97.6 91 30 158/84 (108) 96 12/18/17 20:00 82 12/18/17 19:00 96 2.00 12/18/17 19:00 85 12/18/17 18:00 88 12/18/17 17:00 90 12/18/17 16:00 98.0 84 18 169/89 (115) 96 12/18/17 16:00 86 12/18/17 15:45 90 20 161/95 (117) 94 12/18/17 15:15 90 18 160/87 (111) 93 12/18/17 15:07 97.7 84 20 146/77 (100) 92 12/18/17 14:20 98.7 98 32 149/82 (104) 12/18/17 14:20 98 I/O 12/18/17 12/18/17 12/18/17 12/19/17 12/19/17 12/19/17 07:00 15:00 23:00 07:00 15:00 23:00 Intake Total 1200 ml 100 ml 150 ml 240 ml Output Total 325 ml 100 ml 525 ml Balance 875 ml 100 ml 50 ml -285 ml Intake Oral 400 ml 240 ml IV Total 800 ml 100 ml 150 ml Output Urine Total 250 ml 100 ml 425 ml Drainage Total 75 ml 100 ml # Voids 2 2 # Bowel Movements 2 Laboratory Laboratory Tests Test 12/18/17 16:20 12/19/17 05:46 Hemoglobin 8.6 7.3 Hematocrit 26.4 22.7 Vancomycin Level Trough 13.7 White Blood Count 20.6 Red Blood Count 2.41 Mean Corpuscular Volume 93.9 Mean Corpuscular Hemoglobin 30.3 Mean Corpuscular Hemoglobin Concent 32.3 Red Cell Distribution Width 18.3 Platelet Count 210 Mean Platelet Volume 9.7 Neutrophils (%) (Auto) 94.9 Lymphocytes (%) (Auto) 1.6 Monocytes (%) (Auto) 3.4 Eosinophils (%) (Auto) 0.0 Basophils (%) (Auto) 0.1 Neutrophils # (Auto) 19.5 Lymphocytes # (Auto) 0.3 Monocytes # (Auto) 0.7 Eosinophils # (Auto) 0.0 Basophils # (Auto) 0.0 CBC Comment AUTO DIFF Differential Comment AUTO DIFF CONFIRMED Platelet Estimate NORMAL Platelet Morphology Comment ENLARGED Basophilic Stippling MOD Stomatocytes 1+ Blood Urea Nitrogen 27 Creatinine 0.78 Random Glucose 151 Total Protein 5.3 Albumin 2.5 Calcium Level 9.7 Alkaline Phosphatase 179 Aspartate Amino Transf (AST/SGOT) 167 Alanine Aminotransferase (ALT/SGPT) 160 Total Bilirubin 9.2 Sodium Level 150 Potassium Level 3.7 Chloride Level 109 Carbon Dioxide Level 34.0 Anion Gap 7 Estimat Glomerular Filtration Rate 96 Date/Time Source Procedure Growth Status 12/15/17 19:58 Blood Peripheral Aerobic Blood Culture - Preliminary NO GROWTH IN 4 DAYS Resulted 12/15/17 19:58 Blood Peripheral Anaerobic Blood Culture - Preliminary NO GROWTH IN 4 DAYS Resulted 12/04/17 00:42 Fluid Bile Fluid Gram Stain - Final Complete 12/04/17 00:42 Body Fluid Culture - Final Marielle Albicans Complete 12/16/17 12:53 Urine Clean Catch Legionella Antigen - Final PRESUMPTIVE NEGATIVE FOR LEGIONELLA P... Complete 12/16/17 12:53 Urine Clean Catch Streptococcus pneumoniae Antigen (M - Final PRESUMPTIVE NEGATIVE FOR STREPTOCOCCU... Complete 12/14/17 00:30 Wound Abdomen Gram Stain - Final Complete 12/14/17 00:30 Wound Abdomen Wound Culture - Final NO GROWTH IN 72 HRS.--AEROBICALLY OR ... Complete Imaging Last Impressions Chest X-Ray 12/19/17 0600 Signed Impressions: Service Date/Time: Tuesday, December 19, 2017 09:31 - CONCLUSION: Stable pulmonary infiltrates Temo Banegas MD Biopsy X-Ray 12/18/17 0000 Signed Impressions: Service Date/Time: December 14:47 - CONCLUSION: Uncomplicated fluoroscopic guided biliary forceps biopsy and internal/external drainage catheter exchange as described in detail above Landry Mitchell MD Cholangiogram 12/16/17 0000 Signed Impressions: Service Date/Time: Saturday, December 16, 2017 17:07 - CONCLUSION: There is no drainage catheter complication. The patient does not have significant accumulation of abdominal ascites along the liver surface to potentially exacerbate fluid leakage along the tube tract. The fluid drainage appears to be benign serosanguinous. Dressing changes p.r.n. recommended. Landry Mitchell MD Abdomen Ultrasound 12/14/17 0000 Signed Impressions: Service Date/Time: Thursday, December 14, 2017 09:01 - CONCLUSION: Limited study due to bandages on the abdomen and bowel gas. Focal fatty infiltration right lobe of liver again seen. Gallbladder appears collapsed. Minimal ascites. Jerry Laureano MD Abdomen X-Ray 12/13/17 0000 Signed Impressions: Service Date/Time: Wednesday, December 13, 2017 18:55 - CONCLUSION: Nothing acute demonstrated. Nonobstructive bowel gas pattern and no free air. Evidence of right upper quadrant surgery and a internal/external biliary drainage catheter again noted. Landry Ryan MD Abdomen/Pelvis CT 12/11/17 0000 Signed Impressions: Service Date/Time: December 23:42 - CONCLUSION: 1. There has been interval development of diffuse pancreatitis. There is diffuse inflammatory changes surrounding the pancreas. 2. The previously noted fluid adjacent to the liver has resolved. 3. There is an internal/external biliary drainage catheter in place which appears to be in good position and unchanged in position compared to the prior study. 4. There is a small amount of free fluid deep in the pelvis. 5. Small bilateral pleural effusions. Nathen Ruano MD Head CT 12/09/17 0000 Signed Impressions: Service Date/Time: Saturday, December 09, 2017 20:02 - CONCLUSION: Negative noncontrast head CT. Landry Ryan MD Bile Duct Drainage 12/03/17 0000 Signed Impressions: Service Date/Time: Sunday, December 03, 2017 14:10 - CONCLUSION: Uncomplicated biliary stent placement as above. Bj Hurtado MD Cholangiopancreatography MRI 12/02/17 0000 Signed Impressions: Service Date/Time: Saturday, December 02, 2017 08:17 - CONCLUSION: 1. Significant dilatation of the intrahepatic ducts ending at the confluence and possibility of stricture at this site or a Klatskin's tumor which is not visualized should be entertained. 2. Wedge-shaped focal fat right hepatic lobe. Luz Jean MD Physical Exam HEENT: Normocephalic; atraumatic, eyes icteric CHEST: Low volumes, diminished breath sounds, no audible wheezing CARDIAC: RRR ABDOMEN: Soft and mild distention some tenderness no rebound or guarding, bowel sounds active. Biliary drain with 100mL in drainage bag. EXTREMITIES: No clubbing, cyanosis, or edema. SKIN: + jaundice. Dry RUG CLEANER HAND: Awake , weak (Apoorva Quevedo) Assessment and Plan Plan Initial W/U- abd pain, elevated LFTs, elevated ca 19-9 - 85, poss malignancy Ct done showed intrahepatic biliary duct dilatation without extrahepatic biliary duct dilatation concern for a lesion at the intrahepatic biliary duct or CBD level, MRCP showed Significant dilatation of the intrahepatic ducts ending at the confluence and possibility of stricture at this site or a Klatskin's tumor which is not visualized should be entertained s/p placement biliary drain by IR. Capsular tear liver, s/p ex lap and control liver laceration bleed Anemia, 7.3 today , asymptomatic ,persist status post procedure yesterday, need to continue to monitor hemoglobin especially after procedure CT 12/11/17, Pancreatits with inflammatory change persists. Drain good placement elevated LFTs ([place], AMA, ASMA, ceruloplasmin, alpha-1 antitrypsin, celiac panel) , Hepatitis panel negative LFTs continue elevated, mild rise. 167/[address] 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 Stanton and this note has been written on his behalf (Apoorva Quevedo) Physician Comments Patient seen and examined Agree with above Continue with current supportive care Monitor labs Worsening liver function tests etiology unclear consider liver biopsy Overall prognosis is guarded to poor (Carlton Stanton MD) Apoorva Quevedo Dec 19, 2017 11:52 Carlton Stanton MD Dec 19, 2017 21:05
[2017-12-19] MEDS: LEVOFLOXACIN 750 MG PREMIX INJ 150 ML IV SCH (13:01)
[2017-12-19] MEDS: FUROSEMIDE 20 MG/2 ML VIAL IV PUSH SCH (14:13)
[2017-12-19] MEDS ORDERED: DIATRIZOATE MEGLUM/DIATRIZOATE SOD 9 ML CUP PO ONE (14:15)
[2017-12-19 14:29] LABS: SMOOTH MUSCLE TOTAL AUTOABS Negative (Negative)
[2017-12-19 14:37] LABS: ALPHA-1-ANTITRYPSIN 229 mg/dL (100 - 190)
[2017-12-19 15:33] LABS: HEMATOCRIT 24.2 % (39.0-51.0); HEMOGLOBIN 7.8 GM/DL (13.0-17.0)
[2017-12-19] MEDS: VANCOMYCIN INJ 2,000 MG in SODIUM CHLORID 0.9% 500 ML INJ 500 ML IV SCH (17:16)
[2017-12-19] MEDS: FLUCONAZOLE 400 MG PREMIX BAG 200 ML IV SCH (17:26)
[2017-12-19] MEDS ORDERED: IOHEXOL 350 MG/ML 10 ML VIAL (for RAD DIAG) IVCONTRAST ONE (20:09)
--- NOTE | 2017-12-19 20:35 | RADRPT ---
EXAM DATE/TIME: 12/19/2017 20:07 [facility] COMPARISON: CT ABDOMEN & PELVIS W CONTRAST, December 11, 2017, 23:42. INDICATIONS : Abdominal pain. IV CONTRAST: 93 cc Omnipaque 350 (iohexol) IV ORAL CONTRAST: Prescribed oral contrast ingested. RADIATION DOSE: 16.11 CTDIvol (mGy) MEDICAL HISTORY : Cardiovascular disease. SURGICAL HISTORY : None. ENCOUNTER: Initial ACUITY: 1 day PAIN SCALE: 8/10 LOCATION: abdomen TECHNIQUE: Volumetric scanning of the abdomen and pelvis was performed. Using automated exposure control and ad justment of the mA and/or kV according to patient size, radiation dose was kept as low as reasonably achievable to obtain optimal diagnostic quality images. DICOM format image data is available electro nically for review and comparison. FINDINGS: LOWER LUNGS: Small bilateral pleural effusions with associated passive atelectasis. These are stable. LIVER: There is mild heterogeneity to the enhancement pattern of the right lobe of the liver. No discrete ma ss. There is a focus of contrast pooling within the right lobe directly anterior and inferior to the hepatic drain which is bilobed in nature and measuring a total of 2 cm in diameter. This is a new fin ding. The biliary drain is in good position. This is an internal/external biliary drain. Portal vein is patent. The gallbladder contains air secondary to the biliary drain. A small cyst is seen within t he right lobe of the liver. SPLEEN: Normal size without lesion. PANCREAS: Pronounced extensive inflammatory change involving the pancreas with significant peripancreatic fluid . This has progressed the prior study. The pancreas shows normal enhancement. No necrosis appreciated . No hemorrhage observe. No pancreatic ductal dilatation observed. KIDNEYS: Normal in size and shape. There is no mass, stone or hydronephrosis. ADRENAL GLANDS: Within normal limits. VASCULAR: There is no aortic aneurysm. BOWEL/MESENTERY: The stomach, small bowel, and colon demonstrate no acute abnormality. There is no free intraperitone al air or fluid. ABDOMINAL WALL: Within normal limits. RETROPERITONEUM: There is no lymphadenopathy. BLADDER: No wall thickening or mass. REPRODUCTIVE: Within normal limits. INGUINAL: There is no lymphadenopathy or hernia. MUSCULOSKELETAL: Interspinous devices seen involving the lower lumbar spine. CONCLUSION: 1. Progression in the extensive acute pancreatitis. No hemorrhage or infarction of the pancreas obser angelo. 2. 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 This is new from the prior study. 3. Splenic vein remains patent. 4. Stable small bilateral pleural effusions and associated atelectasis. Jugn Lundberg Jr., MD on December 19, 2017 at 20:26 Board Certified Radiologist. This report was verified electronically.
[2017-12-20] VITALS (25 sets, daily range): BP systolic 108–156; BP diastolic 52–80; PULSE 64–84; RESP 16–20; TEMP 97–98.8; O2SAT 92–100
[2017-12-20] MEDS: METOPROLOL TARTRATE 25 MG TAB PO SCH ×3 (00:20→18:00)
[2017-12-20] MEDS: ALBUMIN 25% INJ 50 ML IV SCH ×3 (00:20→22:42)
[2017-12-20] MEDS: PIPERACILLIN/TAZ 3.375 GM VIAL 3.375 GM in SODIUM CHLORIDE 0.9% INJ 50 ML IV SCH ×4 (04:51→22:41)
[2017-12-20] MEDS: LEVOTHYROXINE SODIUM 100 MCG TAB PO SCH (04:51)
[2017-12-20 07:19] LABS: HEMATOCRIT 22.9 % (39.0-51.0); HEMOGLOBIN 7.3 GM/DL (13.0-17.0); MEAN CELL VOLUME 95.1 FL (80.0-100.0); MEAN CORPUSCULAR HEMOGLOBIN 30.5 PG (27.0-34.0); MEAN PLATELET VOLUME 10.2 FL (7.0-11.0); PLATELET COUNT 210 TH/MM3 (150-450); RED BLOOD COUNT 2.41 MIL/MM3 (4.50-5.90); RED CELL DISTRIBUTION WIDTH 18.5 % (11.6-17.2); WHITE BLOOD COUNT 24.7 TH/MM3 (4.0-11.0)
--- NOTE | 2017-12-20 07:19 | HHI.FPPN ---
Subjective Remarks Patient did not have any acute events overnight. His night nurse states that he was more oriented compared to the report she received about him from previous nights. Patient states that he feels better and plans to eat more today, he had one soft bowel movement overnight. He does not have chest pain or shortness of breath. Objective Vitals Vital Signs Date Time Temp Pulse Resp B/P (MAP) Pulse Ox O2 Delivery O2 Flow Rate FiO2 12/20/17 04:57 97.4 77 18 137/80 (99) 96 12/20/17 03:04 77 12/20/17 01:20 16 12/20/17 00:16 97.7 79 16 132/73 (92) 96 12/20/17 00:08 74 12/19/17 22:11 Nasal Cannula 2.00 12/19/17 21:04 97.6 74 16 135/73 (93) 97 12/19/17 21:04 Nasal Cannula 2.00 40 12/19/17 20:17 74 12/19/17 17:28 98.4 75 18 134/75 (94) 98 12/19/17 15:00 87 12/19/17 13:00 98.2 85 20 152/79 (103) 97 12/19/17 11:00 89 12/19/17 08:53 2.00 12/19/17 08:00 98.5 81 22 160/86 (110) 97 12/19/17 07:45 97 2.00 I/O 12/19/17 12/19/17 12/19/17 12/20/17 12/20/17 12/20/17 07:00 15:00 23:00 07:00 15:00 23:00 Intake Total 240 ml 110 ml 1210 ml 921 ml Output Total 525 ml 1050 ml 200 ml Balance -285 ml 110 ml 160 ml 721 ml Intake Oral 240 ml 340 ml IV Total 110 ml 870 ml 921 ml Output Urine Total 425 ml 950 ml 200 ml Drainage Total 100 ml 100 ml # Voids 2 # Bowel Movements 1 Result Diagram: 12/19/17 1508 12/19/17 0546 Imaging Last Impressions Chest X-Ray 12/19/17 0600 Signed Impressions: Service Date/Time: Tuesday, December 19, 2017 09:31 - CONCLUSION: Stable pulmonary infiltrates Temo Banegas MD Abdomen/Pelvis CT 12/19/17 0000 Signed Impressions: Service Date/Time: Tuesday, December 19, 2017 20:07 - CONCLUSION: 1. Progression in the extensive acute pancreatitis. No hemorrhage or infarction of the pancreas observed. 2. 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 This is new from the prior study. 3. Splenic vein remains patent. 4. Stable small bilateral pleural effusions and associated atelectasis. Jung Lundberg Jr., MD Biopsy X-Ray 12/18/17 0000 Signed Impressions: Service Date/Time: December 14:47 - CONCLUSION: Uncomplicated fluoroscopic guided biliary forceps biopsy and internal/external drainage catheter exchange as described in detail above Landry Mitchell MD Cholangiogram 12/16/17 0000 Signed Impressions: Service Date/Time: Saturday, December 16, 2017 17:07 - CONCLUSION: There is no drainage catheter complication. The patient does not have significant accumulation of abdominal ascites along the liver surface to potentially exacerbate fluid leakage along the tube tract. The fluid drainage appears to be benign serosanguinous. Dressing changes p.r.n. recommended. Landry Mitchell MD Abdomen Ultrasound 12/14/17 0000 Signed Impressions: Service Date/Time: Thursday, December 14, 2017 09:01 - CONCLUSION: Limited study due to bandages on the abdomen and bowel gas. Focal fatty infiltration right lobe of liver again seen. Gallbladder appears collapsed. Minimal ascites. Jerry Laureano MD Abdomen X-Ray 12/13/17 0000 Signed Impressions: Service Date/Time: Wednesday, December 13, 2017 18:55 - CONCLUSION: Nothing acute demonstrated. Nonobstructive bowel gas pattern and no free air. Evidence of right upper quadrant surgery and a internal/external biliary drainage catheter again noted. Landry Ryan MD Head CT 12/09/17 0000 Signed Impressions: Service Date/Time: Saturday, December 09, 2017 20:02 - CONCLUSION: Negative noncontrast head CT. Landry Ryan MD Bile Duct Drainage 12/03/17 0000 Signed Impressions: Service Date/Time: Sunday, December 03, 2017 14:10 - CONCLUSION: Uncomplicated biliary stent placement as above. Bj Hurtado MD Cholangiopancreatography MRI 12/02/17 0000 Signed Impressions: Service Date/Time: Saturday, December 02, 2017 08:17 - CONCLUSION: 1. Significant dilatation of the intrahepatic ducts ending at the confluence and possibility of stricture at this site or a Klatskin's tumor which is not visualized should be entertained. 2. Wedge-shaped focal fat right hepatic lobe. Luz Jean MD Objective Remarks GENERAL: Ill-appearing, mildly jaundiced obese patient, lying in bed, eyes open ; interactive with examiner SKIN: Warm and damp. No lesions. HEAD: Normocephalic. Atraumatic. EYES: Mild scleral icterus. No injection or drainage. CARDIOVASCULAR: Regular rate and rhythm without murmur, gallop, or rub. RESPIRATORY: Minimal expiratory wheezing anteriorly, poor effort, otherwise clear GASTROINTESTINAL: Abdomen obese, tender to palpation mostly in the RUQ. No guarding. BS hypoactive. No guarding. Transverse laparotomy scar over RUQ closed with steri-strips, c/d/i with no induration or fluctuance. Biliary drain in place on right lateral abdomen with small amount of green bilious drainage inside the drain bag. EXTREMITIES: No cyanosis. SCDs in place. 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 Following IR biliary stent and drainage on 12/03, pt found to have liver laceration and hemorrhage causing hemoperitoneum. Exploratory laparotomy performed emergently on 12/04 requiring 6u PRBCs, 1u FFP and 1u Cryo with EBL 2L. Following surgery, pt was sent to ICU for management and showed improvement but still with persistently elevated WBC. He was found to have pancreatitis on CT scan but lipase and amylase were not elevated. His biliary drain was investigated on 12/16/16 due to leaking and was found to be working properly. 12/19: Given 1uPRBCs from blood loss anemia 12/17 w/Hgb 6.8 and H/H improved to 8.1/24.5. Today H/H 7.3/22.7; will do f/u H/H 1PM and will transfuse 1uPRBCs if <7.0. BP elevated to 161/93, confused overnight and incontinent of urine. Getting scheduled oxycodone q8h for pain control now and pt w/o complaint for pain. IR took biopsies of stricture and mass surrounding stricture yesterday and we are awaiting results to consider further workup. Pt appears to be improved wrt RR but still using accessory muscles of neck; is not clammy today; and is resting more comfortably. CXR shows some improvement in PNA. Continues to be afebrile and WBC reduced to 20.6 today. Vanc trough 13.7; continue Zosyn, Vanc, levaquin and diflucan; ID and GI consulted. 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 Discussed with general surgeon Winston who suspects that the fluid pooling is a small bleed from the catheter exchange. He will discuss with IR on Friday to go over all scans/ tests and come up with a plan. Also spoke with IR Dr. Leahy, who states that he would evaluate the scans and will make a decision on the next steps. Will discuss with Dr. Landry Discharge Planning Anticipate discharge once patient is clinically stable, time frame unclear. Problem List: (1) Pneumonia ICD Codes: J18.9 - Pneumonia, unspecified organism Plan: Pneumonia vs atelectasis on CXR: Stable exam, wheezing not worsened. Afebrile, respiratory rate within normal limits. Continue antibiotics as below. -Stable pulmonary infiltrates on 12/19 -Mild hazy density in the right lung and left base on 12/16/16 PA/lat chest x- ray --> stable pulmonary infiltrate on CXR 12/18/17 -Continue Zosyn 3.375 g IV every 6 hours (since 12/01/17) and Levaquin 750 mg every 24 hours IV (12/15-) and Vancomycin 1,750mg IV q24h (12/15-)per ID -Patient also on fluconazole 400mg IV q24h - (since 12/06/17) -Start prednisone 40mg PO q12h -Continue Duonebs q4h scheduled -Continue albuterol nebs q2h PRN -Pulmicort 0.5mg nebs (2) Liver hemorrhage ICD Codes: K76.89 - Other specified diseases of liver Status: Acute Plan: -POD#16 ex lap on 12/04 for liver laceration; continues to have blood loss with PLTs 210 from around biliary drain -CT abdomen/pelvis performed on 12/19 shows 2 cm fluid collection below biliary drain - discussed with IR and general surgery. Plan to follow. We will increase metoprolol to 37.5 mg by mouth every 8 hours in order to maintain SBP less than 140 BPM -Stable -Continue pain control as needed -Hgb 7.3 this morning; f/u H&H at 1200 and 1800 hours; will transfuse 1uPRBCs if Hgb <7.0 (3) Abdominal pain ICD Codes: R10.9 - Unspecified abdominal pain Status: Acute Plan: Stable -12/20: BP intermittently elevated to 156/77, patient tender to palpation of abdomen. Catheter exchange and biopsy performed on 12/18. -12/19: BP elevated overnight to 169/93 but pt not complaining of abdominal pain ; consider hypovolemia/anemia for source of BP elevation -12/18: Cholangiogram and biopsies of stricture and mass outside the stricture; await pathology results; scheduled oxycodone q8h started due to elevated BPs. -IR re-assessed biliary drain on 12/16/16 and it was determined to be working properly; cholangiogram and -GI awaiting results of tumor bx before proceeding further * No plan for EUS until resolution of pancreatitis [place] and morphine IV as needed for pain CT findings as below MRCP findings as below CT of the abdomen and pelvis: 12/19/19: 1. Progression in the extensive acute pancreatitis. No hemorrhage or infarction of the pancreas observed. 2. 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 This is new from the prior study. CT of the abdomen and pelvis: 12/04/17: Moderate volume hemoperitoneum. Interval placement of a right internal/external earlier a drainage catheter. Drain good position. CT of the abdomen and pelvis: 12/11/17: 1. Interval development of diffuse pancreatitis. Diffuse inflammatory changes surrounding the pancreas. 2. Previously noted fluid adjacent to the liver has resolved. 3. Internal/external biliary drainage catheter in place which appears to be in good position and unchanged in position compared to the prior study. 4. Small amount of free fluid deep in the pelvis. 5. Small bilateral pleural effusions. MRCP: 12/02/17: Significant dilation of the intrahepatic ducts ending in the confluence and possibility of stricture at the site or a lack since tumor which is not visualized should be entertained. Wedge-shaped focal fat right hepatic lobe (4) Leukocytosis ICD Codes: D72.829 - Elevated white blood cell count, unspecified Status: Acute Plan: Originally considered a Leukemoid rxn with WBCs in 35-50 range; however, Heme believed to be infection and since broadening of abx, WBC has steadily decreased to 20.6 today -Transition to PO Abx when WBC improves per ID -Wound cx of biliary drain fluid NGTD Heme/onc consult reveals likely due to infection -B12 high 2000 /folate wnl -heme occult/[place] ordered (5) Anemia ICD Codes: D64.9 - Anemia, unspecified Plan: Likely 2/2 blood loss -Hgb 7.3 on 12/20 --> f/u H&H at 1200 and 1800 hours -Plan to transfuse if Hgb <7.0 (6) Polymyalgia rheumatica ICD Codes: M35.3 - Polymyalgia rheumatica Status: Chronic Plan: Holding prednisone 5 mg daily, on Prednisone 40 mg PO bid (7) BPH (benign prostatic hyperplasia) ICD Codes: N40.0 - Benign prostatic hyperplasia without lower urinary tract symptoms Status: Chronic Plan: -Continue home finasteride (8) Hypothyroidism ICD Codes: E03.9 - Hypothyroidism, unspecified Status: Chronic Plan: Continue home Synthroid 100 mcg daily (9) FEN/PPX Plan: Fluids: holding fluids due to being overloaded, diuresis with lasix 20mg IV daily, encourage by mouth intake Electrolytes: Monitor and replace PRN Nutrition: Diet per speech therapy and nutrition DVT: SCDs, holding pharmacologic prophylaxis due to acute bleed Problem Qualifiers (1) Abdominal pain: Qualified Codes: R10.11 - Right upper quadrant pain (2) Leukocytosis: Qualified Codes: D72.829 - Elevated white blood cell count, unspecified (3) BPH (benign prostatic hyperplasia): Qualified Codes: N40.0 - Benign prostatic hyperplasia without lower urinary tract symptoms (4) Hypothyroidism: Qualified Codes: E03.9 - Hypothyroidism, unspecified Lorin Pollock MD R2 Dec 20, 2017 07:19
[2017-12-20] MEDS: CHLORHEXIDINE 0.12% (ORAL KIT) 15 ML CUP MT SCH ×2 (08:00→20:00)
[2017-12-20 08:32] LABS: ALT (GPT) 187 U/L (12-78)
[2017-12-20 08:35] LABS: ALKALINE PHOSPHATASE 195 U/L (45-117); TOTAL BILIRUBIN ADULT 8.6 MG/DL (0.2-1.0); TOTAL PROTEIN 5.4 GM/DL (6.4-8.2)
[2017-12-20 08:36] LABS: ALBUMIN 2.7 GM/DL (3.4-5.0); AST (GOT) 166 U/L (15-37); BICARBONATE 35.4 MEQ/L (21.0-32.0); BLOOD UREA NITROGEN 23 MG/DL (7-18); CALCIUM 9.9 MG/DL (8.5-10.1); CHLORIDE 103 MEQ/L (98-107); CREATININE 0.74 MG/DL (0.60-1.30); GLOMERULAR FILTRATION RATE 102 ML/MIN (>89); GLUCOSE,RANDOM 133 MG/DL (74-106); SODIUM (NA) 146 MEQ/L (136-145)
[2017-12-20] MEDS: LACTULOSE SYRUP 20 GM/30 ML CUP PO SCH (09:00)
[2017-12-20] MEDS: PANTOPRAZOLE SODIUM 40 MG VIAL IV PUSH SCH (09:29)
[2017-12-20] MEDS: DOCUSATE SODIUM 50 MG/SENNA 8.6 MG TAB PO SCH ×2 (09:29→22:40)
[2017-12-20] MEDS: FINASTERIDE 5 MG TAB PO SCH (09:29)
[2017-12-20] MEDS: SODIUM CHLORIDE 0.9% FLUSH 10 ML FLUSH IV FLUSH SCH ×2 (09:29→21:00)
[2017-12-20] MEDS: URSODIOL 300 MG CAP PO SCH ×2 (09:29→22:40)
[2017-12-20] MEDS: methylPREDNISolone SOD SUCC 40 MG/1 ML VIAL IV PUSH SCH (09:29)
[2017-12-20] MEDS: POTASSIUM CHLORIDE 20 MEQ CONTROLLED RELEASE TAB PO SCH (09:30)
[2017-12-20] MEDS: D5-1/2 NS + KCL 20 MEQ INJ 1,000 ML IV SCH (10:01)
[2017-12-20] MEDS: RESP: BUDESONIDE 0.5 MG/2 ML NEB NEB SCH ×2 (10:03→19:29)
[2017-12-20] MEDS: RESP: ALBUTEROL 2.5 MG/3 ML NEB (PRN) NEB (10:05)
[2017-12-20] MEDS ORDERED: PILL SPLITTER OTHER PRN (10:30)
--- NOTE | 2017-12-20 12:41 | HHI.GIFU ---
Subjective Remarks Patient is resting in bed, still jaundice, poor appetite. There's plans for Angio gram with IR for the liver aneurysm and the anemia to r/o active bleed (Malik Keen) Objective Vitals I&O Vital Signs Date Time Temp Pulse Resp B/P (MAP) Pulse Ox O2 Delivery O2 Flow Rate FiO2 12/20/17 11:00 81 12/20/17 10:36 18 12/20/17 10:08 95 Nasal Cannula 2.00 12/20/17 10:00 80 12/20/17 09:00 76 12/20/17 08:00 64 12/20/17 08:00 97.6 76 19 156/77 (103) 96 12/20/17 07:00 96 Nasal Cannula 2.00 12/20/17 07:00 78 12/20/17 04:57 97.4 77 18 137/80 (99) 96 12/20/17 03:04 77 12/20/17 00:16 97.7 79 16 132/73 (92) 96 12/20/17 00:08 74 12/19/17 22:11 Nasal Cannula 2.00 12/19/17 21:04 97.6 74 16 135/73 (93) 97 12/19/17 21:04 Nasal Cannula 2.00 40 12/19/17 20:17 74 12/19/17 17:28 98.4 75 18 134/75 (94) 98 12/19/17 15:00 87 12/19/17 13:00 98.2 85 20 152/79 (103) 97 I/O 12/19/17 12/19/17 12/19/17 12/20/17 12/20/17 12/20/17 07:00 15:00 23:00 07:00 15:00 23:00 Intake Total 240 ml 110 ml 1210 ml 921 ml 290 ml Output Total 525 ml 1050 ml 200 ml 552 ml Balance -285 ml 110 ml 160 ml 721 ml -262 ml Intake Oral 240 ml 340 ml 240 ml IV Total 110 ml 870 ml 921 ml 50 ml Output Urine Total 425 ml 950 ml 200 ml 300 ml Stool Total 2 ml Drainage Total 100 ml 100 ml 250 ml # Voids 2 # Bowel Movements 1 Laboratory Laboratory Tests Test 12/19/17 15:08 12/20/17 05:26 Hemoglobin 7.8 7.3 Hematocrit 24.2 22.9 White Blood Count 24.7 Red Blood Count 2.41 Mean Corpuscular Volume 95.1 Mean Corpuscular Hemoglobin 30.5 Mean Corpuscular Hemoglobin Concent 32.0 Red Cell Distribution Width 18.5 Platelet Count 210 Mean Platelet Volume 10.2 Blood Urea Nitrogen 23 Creatinine 0.74 Random Glucose 133 Total Protein 5.4 Albumin 2.7 Calcium Level 9.9 Alkaline Phosphatase 195 Aspartate Amino Transf (AST/SGOT) 166 Alanine Aminotransferase (ALT/SGPT) 187 Total Bilirubin 8.6 Sodium Level 146 Potassium Level 4.0 Chloride Level 103 Carbon Dioxide Level 35.4 Anion Gap 8 Estimat Glomerular Filtration Rate 102 Date/Time Source Procedure Growth Status 12/15/17 19:58 Blood Peripheral Aerobic Blood Culture - Final NO GROWTH IN 5 DAYS Complete 12/15/17 19:58 Blood Peripheral Anaerobic Blood Culture - Final NO GROWTH IN 5 DAYS Complete 12/04/17 00:42 Fluid Bile Fluid Gram Stain - Final Complete 12/04/17 00:42 Body Fluid Culture - Final Marielle Albicans Complete 12/20/17 05:13 Stool Stool Stool Occult Blood (RADHA) - Final HEMOCCULT POSITIVE Complete 12/16/17 12:53 Urine Clean Catch Legionella Antigen - Final PRESUMPTIVE NEGATIVE FOR LEGIONELLA P... Complete 12/16/17 12:53 Urine Clean Catch Streptococcus pneumoniae Antigen (M - Final PRESUMPTIVE NEGATIVE FOR STREPTOCOCCU... Complete 12/14/17 00:30 Wound Abdomen Gram Stain - Final Complete 12/14/17 00:30 Wound Abdomen Wound Culture - Final NO GROWTH IN 72 HRS.--AEROBICALLY OR ... Complete Imaging Last Impressions Chest X-Ray 12/19/17 0600 Signed Impressions: Service Date/Time: Tuesday, December 19, 2017 09:31 - CONCLUSION: Stable pulmonary infiltrates Temo Banegas MD Abdomen/Pelvis CT 12/19/17 0000 Signed Impressions: Service Date/Time: Tuesday, December 19, 2017 20:07 - CONCLUSION: 1. Progression in the extensive acute pancreatitis. No hemorrhage or infarction of the pancreas observed. 2. 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 This is new from the prior study. 3. Splenic vein remains patent. 4. Stable small bilateral pleural effusions and associated atelectasis. Jung Lundberg Jr., MD Biopsy X-Ray 12/18/17 0000 Signed Impressions: Service Date/Time: December 14:47 - CONCLUSION: Uncomplicated fluoroscopic guided biliary forceps biopsy and internal/external drainage catheter exchange as described in detail above Landry Mitchell MD Cholangiogram 12/16/17 0000 Signed Impressions: Service Date/Time: Saturday, December 16, 2017 17:07 - CONCLUSION: There is no drainage catheter complication. The patient does not have significant accumulation of abdominal ascites along the liver surface to potentially exacerbate fluid leakage along the tube tract. The fluid drainage appears to be benign serosanguinous. Dressing changes p.r.n. recommended. Landry Mitchell MD Abdomen Ultrasound 12/14/17 0000 Signed Impressions: Service Date/Time: Thursday, December 14, 2017 09:01 - CONCLUSION: Limited study due to bandages on the abdomen and bowel gas. Focal fatty infiltration right lobe of liver again seen. Gallbladder appears collapsed. Minimal ascites. Jerry Laureano MD Abdomen X-Ray 12/13/17 0000 Signed Impressions: Service Date/Time: Wednesday, December 13, 2017 18:55 - CONCLUSION: Nothing acute demonstrated. Nonobstructive bowel gas pattern and no free air. Evidence of right upper quadrant surgery and a internal/external biliary drainage catheter again noted. Landry Ryan MD Head CT 12/09/17 0000 Signed Impressions: Service Date/Time: Saturday, December 09, 2017 20:02 - CONCLUSION: Negative noncontrast head CT. Landry Ryan MD Bile Duct Drainage 12/03/17 0000 Signed Impressions: Service Date/Time: Sunday, December 03, 2017 14:10 - CONCLUSION: Uncomplicated biliary stent placement as above. Bj Hurtado MD Cholangiopancreatography MRI 12/02/17 0000 Signed Impressions: Service Date/Time: Saturday, December 02, 2017 08:17 - CONCLUSION: 1. Significant dilatation of the intrahepatic ducts ending at the confluence and possibility of stricture at this site or a Klatskin's tumor which is not visualized should be entertained. 2. Wedge-shaped focal fat right hepatic lobe. K. Gurvinder Jean MD Physical Exam HEENT: Normocephalic; atraumatic, eyes icteric CHEST: Low volumes, diminished breath sounds, no audible wheezing CARDIAC: RRR ABDOMEN: Soft and mild distention some tenderness no rebound or guarding, bowel sounds active. Biliary drain EXTREMITIES: No clubbing, cyanosis, or edema. SKIN: + jaundice. 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 Capsular tear liver, s/p ex lap and control liver laceration bleed Anemia, 7.3 today , asymptomatic ,persist status post procedure yesterday, need to continue to monitor hemoglobin especially after procedure CT 12/11/17, Pancreatits with inflammatory change persists. Drain good placement elevated LFTs ([place], AMA, ASMA, ceruloplasmin, alpha-1 antitrypsin, celiac panel) , Hepatitis panel negative LFTs continue elevated, mild rise. 167/[address] 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 Stanton and this note has been written on his behalf (Malik Keen) Physician Comments Patient seen and examined Agree with above Continue with current supportive care Monitor labs Await angiogram Consider liver biopsy (Carlton Stanton MD) Malik Keen Dec 20, 2017 12:41 Carlton Stanton MD Dec 20, 2017 15:06
[2017-12-20] MEDS: FUROSEMIDE 20 MG/2 ML VIAL IV PUSH SCH (12:45)
[2017-12-20 13:07] LABS: HEMATOCRIT 24.3 % (39.0-51.0); HEMOGLOBIN 7.7 GM/DL (13.0-17.0)
[2017-12-20] MEDS ORDERED: LORazepam 2 MG/ML VIAL ONE (14:27)
--- NOTE | 2017-12-20 15:19 | PD.RAD ---
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 Complete occlusion of the aneurism on follow up angio. Full dictated report to follow See PACS Report for procedural detail/treatment Lion Leahy MD Dec 20, 2017 15:19
[2017-12-20] MEDS ORDERED: IODIXANOL 320 MG/ML 50 ML VIAL (for RAD SPEC) I-ARTERIAL ONE (15:44)
[2017-12-20] MEDS: LEVOFLOXACIN 750 MG PREMIX INJ 150 ML IV SCH (15:51)
--- NOTE | 2017-12-20 16:23 | RADRPT ---
EXAM DATE/TIME: 12/20/2017 15:32 [facility] COMPARISON: F/U THRU EXISTING CATHETER, December 20, 2017, 0:00. INDICATIONS : Patient with a history of choloangiocarcinoma, with hepatic bleed. MEDICAL HISTORY : HLD, BPH, Polymyalgia rheumatica, Benign polyps, GERD, Gallstones, Kidney stones, Asthma SURGICAL HISTORY : Cervical and lumbar fusion ENCOUNTER: Subsequent ACUITY: 1 day PAIN SCORE: 6/10 LOCATION: Right leg FLUORO TIME: 18.0 minutes IMAGE SERIES: 8 ACCESS SITE: Right Femoral artery SEDATION TIME: 0 minutes CONTRAST: 1.) 70 cc Visipaque (iodixanol) MEDICATION(S): 1.) 100 mcg fentanyl (Sublimaze) IV 2.) 1.5 mg lorazepam (Ativan) IV DEVICE(S): 1.) hepatic artery [id number], [id number] embolic coil(s) 2.) Right common femoral artery 6FR Angio-Seal PROCEDURE : 1. Ultrasound-guided puncture of the access site. 2. Angiography of the access site prior to closure device. 3. Conscious sedation with continuous EKG and Oximetry monitoring. 4. Percutaneous closure of the access site. 5. Angiography of the celiac axis 6. Angiography of the hepatic artery 7. subselective embolization of a right hepatic branch. The patient's CT scan was reviewed. There was abnormal vascularity in the right lobe of the liver. Th ere was concern for pseudoaneurysm. The risks, benefits and alternatives to the procedure were explained to the patient and his . Todd bal and written consent was obtained. The site was prepped in sterile fashion. Full sterile techniq ue was used, including cap, mask, sterile gloves and gown and a large sterile sheet. Hand hygiene an d 2% chlorhexidine and/or betadine/alcohol prep was utilized per protocol for cutaneous antisepsis. Sterile gel and sterile probe cover were utilized for ultrasound guidance. The skin and subcutaneous tissues were infiltrated with local anesthetic solution. With ultrasound and fluoroscopic guidance the right common femoral artery was punctured and a vascula r sheath was placed. Angiography of the common femoral artery was performed for evaluation prior to percutaneous closure device placement. A 0.035 angled Glidewire and glide catheter were passed into the aorta. The celiac axis was easily se lected. The celiac origin demonstrated the hepatic and splenic arteries to be patent. The Glidewire and catheter were advanced into the main hepatic artery. 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 The hook catheter was exchanged for a glide catheter. This was advanced out into the hepatic circulat ion. A renegade hi flow catheter was advanced through the glide catheter. The branch feeding the pseu doaneurysm and arteriovenous fistula was easily selected. The catheter was advanced up to the origin of the pseudoaneurysm. A 3 mm x 3 cm coil was placed across the origin of the aneurysm. Approximatel y 0.5 cc of Gelfoam was placed into the artery behind the coil. This was backed by a 3 mm x 1 cm coil . This was followed by approximately 0.5 cc of Gelfoam as well. Followup angiography demonstrated complete occlusion of the pseudoaneurysm. Hemostasis was obtained with the prescribed medicated closure device. Conscious sedation was perform ed with the prescribed dosages and duration as above in the presence of an independent trained radiol ogy nurse to assist in the monitoring of the patient. EKG and oximetry remained stable throughout th e procedure. CONCLUSION: 1. 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 Followup angiography demonstrated complete exclusion of the pseudoaneurysm and fistula with normal appearing flow within the hepatic branches. Lion Leahy MD on December 20, 2017 at 16:16 Board Certified Radiologist. This report was verified electronically.
[2017-12-20] MEDS: VANCOMYCIN INJ 2,000 MG in SODIUM CHLORID 0.9% 500 ML INJ 500 ML IV SCH (17:08)
[2017-12-20] MEDS: FLUCONAZOLE 400 MG PREMIX BAG 200 ML IV SCH (17:40)
[2017-12-20 17:52] LABS: ENDOMYSIAL AB SCREEN ND (NEGATIVE); ENDOMYSIAL AB TITER ND (<1:5)
[2017-12-20 19:11] LABS: HEMATOCRIT 20.3 % (39.0-51.0); HEMOGLOBIN 6.8 GM/DL (13.0-17.0)
[2017-12-20] MEDS ORDERED: FUROSEMIDE 20 MG/2 ML VIAL IV PUSH SCH (19:30)
[2017-12-20] MEDS ORDERED: SODIUM CHLOR 0.9% 250 ML INJ 250 ML IV ONE (19:30)
[2017-12-20 19:52] LABS: CERULOPLASMIN 36 mg/dL (18-36)
[2017-12-20] MEDS: predniSONE 20 MG TAB PO SCH (22:41)
[2017-12-21] VITALS (33 sets, daily range): BP systolic 133–164; BP diastolic 75–96; PULSE 70–100; RESP 19–24; TEMP 96.6–98.2; O2SAT 93–99
[2017-12-21] MEDS: METOPROLOL TARTRATE 25 MG TAB PO SCH ×5 (00:25→21:57)
[2017-12-21 03:50] LABS: MITOCHONDRIAL ABS LESS THAN 20.0 U (<=20.0)
[2017-12-21] MEDS: PIPERACILLIN/TAZ 3.375 GM VIAL 3.375 GM in SODIUM CHLORIDE 0.9% INJ 50 ML IV SCH ×4 (04:09→22:16)
[2017-12-21] MEDS: LEVOTHYROXINE SODIUM 100 MCG TAB PO SCH (04:09)
[2017-12-21 05:30] LABS: HEMATOCRIT 26.1 % (39.0-51.0); HEMOGLOBIN 8.7 GM/DL (13.0-17.0)
[2017-12-21] MEDS ORDERED: METOPROLOL TARTRATE 25 MG TAB PO SCH (06:45)
[2017-12-21] MEDS ORDERED: SODIUM CHLORIDE 0.9% FLUSH 10 ML FLUSH IV FLUSH PRN (07:45)
[2017-12-21 07:56] LABS: AUTOMATED NEUTROPHIL # 28.3 TH/MM3 (1.8-7.7); BASOPHIL # 0.1 TH/MM3 (0-0.2); BASOPHIL % 0.2 % (0.0-2.0); HEMATOCRIT 27.3 % (39.0-51.0); LYMPH % 1.1 % (9.0-44.0); LYMPHOCYTE # 0.3 TH/MM3 (1.0-4.8); MEAN CELL VOLUME 91.8 FL (80.0-100.0); MEAN CORPUSCULAR HEMOGLOBIN 30.4 PG (27.0-34.0); MEAN CORPUSCULAR HGB CONC 33.1 % (32.0-36.0); MEAN PLATELET VOLUME 9.8 FL (7.0-11.0); MONOCYTE # 1.2 TH/MM3 (0-0.9); NEUT % 94.7 % (16.0-70.0); PLATELET COUNT 183 TH/MM3 (150-450); RED BLOOD COUNT 2.98 MIL/MM3 (4.50-5.90); RED CELL DISTRIBUTION WIDTH 19.2 % (11.6-17.2); WHITE BLOOD COUNT 29.9 TH/MM3 (4.0-11.0)
[2017-12-21] MEDS: CHLORHEXIDINE 0.12% (ORAL KIT) 15 ML CUP MT SCH ×2 (08:00→20:00)
[2017-12-21 08:13] LABS: ALKALINE PHOSPHATASE 207 U/L (45-117); TOTAL BILIRUBIN ADULT 8.8 MG/DL (0.2-1.0); TOTAL PROTEIN 5.5 GM/DL (6.4-8.2)
[2017-12-21] MEDS: RESP: BUDESONIDE 0.5 MG/2 ML NEB NEB SCH ×2 (08:18→20:24)
[2017-12-21 08:22] LABS: ALBUMIN 2.8 GM/DL (3.4-5.0); ALT (GPT) 197 U/L (12-78); AST (GOT) 170 U/L (15-37); BLOOD UREA NITROGEN 23 MG/DL (7-18); CALCIUM 9.5 MG/DL (8.5-10.1); CHLORIDE 101 MEQ/L (98-107); CREATININE 0.74 MG/DL (0.60-1.30); GLOMERULAR FILTRATION RATE 102 ML/MIN (>89); GLUCOSE,RANDOM 143 MG/DL (74-106); SODIUM (NA) 142 MEQ/L (136-145)
--- NOTE | 2017-12-21 08:31 | RADRPT ---
EXAM DATE/TIME: 12/21/2017 07:43 [facility] COMPARISON: CHEST PA & LAT, December 19, 2017, 9:31. INDICATIONS : Short of breath MEDICAL HISTORY : HLD, BPH, Polymyalgia rheumatica, Benign polyps, GERD, Gallstones, Asthma, Cardiovascular disease. R enal calculi SURGICAL HISTORY : Cervical and lumbar fusion, Biliary stent placement. Laparotomy ENCOUNTER: Initial ACUITY: 4 - 6 days PAIN SCORE: 0/10 LOCATION: Bilateral chest FINDINGS: There is slight cardiomegaly and moderate perivascular pulmonary edema progressed. Focal consolidatio n is not seen. CONCLUSION: Moderate CHF progress. Luz Jean MD on December 21, 2017 at 8:28 Board Certified Radiologist. This report was verified electronically.
[2017-12-21] MEDS ORDERED: FUROSEMIDE 20 MG/2 ML VIAL IV PUSH ONE (09:00)
[2017-12-21] MEDS: predniSONE 20 MG TAB PO SCH ×2 (09:11→23:00)
[2017-12-21] MEDS: POTASSIUM CHLORIDE 20 MEQ CONTROLLED RELEASE TAB PO SCH (09:11)
[2017-12-21] MEDS: URSODIOL 300 MG CAP PO SCH ×2 (09:12→21:00)
[2017-12-21] MEDS: DOCUSATE SODIUM 50 MG/SENNA 8.6 MG TAB PO SCH ×2 (09:12→21:00)
[2017-12-21] MEDS: LACTULOSE SYRUP 20 GM/30 ML CUP PO SCH (09:13)
[2017-12-21] MEDS: FINASTERIDE 5 MG TAB PO SCH (09:14)
[2017-12-21] MEDS: SODIUM CHLORIDE 0.9% FLUSH 10 ML FLUSH IV FLUSH SCH ×2 (09:15→21:55)
[2017-12-21] MEDS: PANTOPRAZOLE SODIUM 40 MG VIAL IV PUSH SCH (09:15)
--- NOTE | 2017-12-21 09:22 | HHI.FPPN ---
Subjective Remarks Mr Rios was awake last night for awhile but had no acute events following embolization of a pseudoaneurysm in his right hepatic lobe by IR. He appears a little more hemodynamically stable, but with RR slightly increased. He is alert and oriented and not as confused. He was able to stand with PT yesterday but when standing a second time, his legs buckled and was assisted to a chair. He does not have an appetite today. He received 1uPRBCs early this morning. We had the nurse flush his biliary drain while in the room with improved drain output afterwards. Denies CP, but is tired from WOB, no N/V/D, and DVT pain. (Pascual Valero MD R1) Objective Vitals Vital Signs Date Time Temp Pulse Resp B/P (MAP) Pulse Ox O2 Delivery O2 Flow Rate FiO2 12/21/17 08:20 98 Nasal Cannula 4.00 12/21/17 07:53 97 Nasal Cannula 4.00 12/21/17 05:46 97.4 80 150/87 (108) 99 12/21/17 05:00 78 12/21/17 04:10 80 12/21/17 03:59 97.4 80 150/87 98 12/21/17 03:00 70 12/21/17 02:00 76 12/21/17 01:00 84 12/21/17 00:55 97.6 82 151/79 98 12/21/17 00:38 96.6 78 143/78 99 12/21/17 00:00 96.6 78 143/78 (99) 99 12/21/17 00:00 76 12/20/17 23:00 74 12/20/17 23:00 Nasal Cannula 2.00 12/20/17 22:00 78 12/20/17 21:00 70 12/20/17 20:00 74 12/20/17 20:00 98.8 73 137/77 (97) 99 12/20/17 19:29 99 Nasal Cannula 2.00 12/20/17 19:00 73 12/20/17 18:01 74 20 122/62 (82) 99 12/20/17 18:01 72 12/20/17 17:39 80 19 125/71 (89) 100 12/20/17 17:06 75 19 108/52 (70) 92 12/20/17 17:00 74 12/20/17 16:10 77 20 109/57 (74) 92 12/20/17 16:00 97.0 80 20 138/75 (96) 92 12/20/17 16:00 97.0 80 20 138/75 (96) 92 12/20/17 16:00 77 12/20/17 15:58 78 12/20/17 13:00 84 12/20/17 12:00 68 12/20/17 12:00 97.1 80 19 145/76 (99) 98 12/20/17 11:00 81 12/20/17 10:36 18 12/20/17 10:08 95 Nasal Cannula 2.00 12/20/17 10:00 80 12/20/17 09:00 76 I/O 12/20/17 12/20/17 12/20/17 12/21/17 12/21/17 12/21/17 07:00 15:00 23:00 07:00 15:00 23:00 Intake Total 921 ml 290 ml 250 ml 1275 ml 240 ml Output Total 200 ml 552 ml 1300 ml 800 ml Balance 721 ml -262 ml -1050 ml 1275 ml -560 ml Intake Oral 240 ml 240 ml IV Total 921 ml 50 ml 250 ml Packed Cells 400 ml Blood Product IV Normal Saline Flush 875 ml Output Urine Total 200 ml 300 ml 1300 ml 800 ml Stool Total 2 ml Drainage Total 250 ml # Voids 2 # Bowel Movements 2 (Pascual Valero MD R1) Result Diagram: 12/21/17 0740 12/21/17 0740 Imaging Last 24 hours Impressions Chest X-Ray 12/21/17 0000 Signed Impressions: Service Date/Time: Thursday, December 21, 2017 07:43 - CONCLUSION: Moderate CHF progress. Luz Jean MD Objective Remarks GENERAL: Ill-appearing, mildly jaundiced obese patient, lying in bed, eyes open ; interactive with examiner SKIN: Warm and damp. No lesions. Mild jaundice to upper chest. HEAD: Normocephalic. Atraumatic. EYES: Mild scleral icterus. No injection or drainage. CARDIOVASCULAR: Regular rate and rhythm without murmur, gallop, or rub. RESPIRATORY: Minimal expiratory wheezing anteriorly, poor effort, otherwise clear; posteriorly he has mild crackles at bilateral lung bases. GASTROINTESTINAL: Abdomen obese, mildly tender to palpation. No guarding. BS hypoactive. No guarding. Transverse laparotomy scar over RUQ closed with steri- strips, c/d/i with no induration or fluctuance. Biliary drain in place on right lateral abdomen with small amount of green bilious drainage inside the drain bag. EXTREMITIES: No cyanosis. SCDs in place. NEUROLOGICAL: Oriented to self and place. Procedures 12/02/17 - MRCP 12/03/17 - Biliary drainage with percutaneous cholangiogram 12/04/17 - Exploratory laparotomy, liver laceration repair 12/14/17 - Cholangiogram 12/16/17 - Cholangiogram 12/18/17 - Cholangiogram with catheter change and biopsy of intrahepatic biliary duct at stricture and biopsy of mass 12/20/17 - Embolization of Right Hepatic Lobe under IR guidance Medications and IVs Current Medications Medications (Trade) Dose Ordered Sig/Rafa Route Start Time Stop Time Status Last Admin (NS Flush) 2 ml UNSCH PRN IV FLUSH 12/01/17 11:00 (NS Flush) 2 ml BID IV FLUSH 12/01/17 21:00 12/20/17 21:00 (Zofran Inj) 4 mg Q6H PRN IVP 12/01/17 11:00 12/16/17 06:18 ([place] 5-325 Mg) 1 tab Q4H PRN PO 12/01/17 11:00 ([place] 10-325 Mg) 1 tab Q4H PRN PO 12/01/17 11:00 12/14/17 13:48 (Narcan Inj) 0.4 mg UNSCH PRN IV PUSH 12/01/17 11:00 ([place]-Colace) 1 tab BID PO 12/01/17 21:00 12/20/17 22:40 (Milk Of Magnesia Liq) 30 ml Q12H PRN PO 12/01/17 11:00 12/09/17 05:20 (Senokot) 17.2 mg Q12H PRN PO 12/01/17 11:00 (Dulcolax Supp) 10 mg DAILY PRN RECTAL 12/01/17 11:00 (Lactulose Liq) 30 ml DAILY PRN PO 12/01/17 11:00 (Proscar) 5 mg DAILY PO 12/02/17 09:00 Future hold 12/20/17 09:29 (Deltasone) 5 mg DAILY PO 12/02/17 09:00 Future Hold 12/15/17 11:52 (Peridex 0.12% Liq) 15 ml BID@08,20 MT 12/04/17 08:00 12/08/17 20:00 Fluconazole/ Sodium Chloride 200 ml @ 100 mls/hr Q24H IV 12/06/17 17:00 12/20/17 17:40 (Albuterol Neb) 2.5 mg Q2HR NEB PRN NEB 12/05/17 22:00 12/20/17 10:05 (Synthroid) 100 mcg DAILY@0600 PO 12/08/17 06:00 12/21/17 04:09 (Melatonin) 5 mg HS PRN PO 12/07/17 21:00 12/17/17 23:20 (Tylenol) 500 mg Q6H PRN PO 12/08/17 08:30 (Protonix Inj) 40 mg DAILY IV PUSH 12/10/17 09:00 12/20/17 09:29 (Lactulose Liq) 30 ml DAILY PO 12/11/17 09:00 12/19/17 10:13 (Pulmicort Respule Neb) 0.5 mg Q12HR NEB NEB 12/12/17 09:45 12/21/17 08:18 (KCl) 20 meq DAILY PO 12/14/17 09:00 12/20/17 09:30 (Actigall) 300 mg Q12HR PO 12/13/17 21:00 12/20/17 22:40 Albumin Human 50 ml @ 60 mls/hr Q12H IV 12/14/17 12:00 12/20/17 22:42 (Lasix Inj) 20 mg DAILY@1215 IV PUSH 12/14/17 12:15 12/20/17 12:45 Piperacillin Sod/ Tazobactam Sod 3.375 gm/Sodium Chloride 50 ml @ 100 mls/hr Q6H IV 12/15/17 04:00 12/21/17 04:09 Pharmacy Profile Note 0 ml @ 0 mls/hr UNSCH OTHER 12/15/17 13:15 Levofloxacin/ Dextrose 150 ml @ 100 mls/hr Q24H IV 12/15/17 14:00 12/20/17 15:51 (Morphine Inj) 1 mg Q4H PRN IV PUSH 12/15/17 16:15 Potassium Chloride/Dextrose/ Sod Cl 1,000 ml @ 50 mls/hr Q20H IV 12/15/17 17:00 12/20/17 10:01 (Roxicodone) 5 mg Q8H PO 12/18/17 17:00 12/20/17 09:29 Vancomycin HCl 2000 mg/Sodium Chloride 520 ml @ 250 mls/hr Q24H IV 12/19/17 17:00 12/20/17 17:08 Miscellaneous Information SPECIFIC LAB TO BE [facility]... ONCE ONCE .XX 12/22/17 16:45 12/22/17 16:46 (Lopressor) 12.5 mg Q8H PO 12/20/17 17:00 12/21/17 00:25 (Pill Splitter) 1 ea UNSCH PRN OTHER 12/20/17 10:30 (Deltasone) 40 mg BID PO 12/20/17 21:00 12/20/17 22:41 Sodium Chloride 250 ml @ 15 mls/hr ONCE ONCE IV 12/20/17 19:30 12/21/17 12:09 12/20/17 22:41 (Lopressor) 25 mg Q8HR PO 12/21/17 06:45 (NS Flush) 2 ml UNSCH PRN IV FLUSH 12/21/17 07:45 (Pascual Valero MD R1) Urinary Catheter: No (Pascual Valero MD R1) A/P Assessment and Plan 82 yo male with h/o PMR, BPH, hyperlipidemia presented with RUQ pain and UTI and 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 Following IR biliary stent and drainage on 12/03, pt found to have liver laceration and hemorrhage causing hemoperitoneum. Exploratory laparotomy performed emergently on 12/04 requiring 6u PRBCs, 1u FFP and 1u Cryo with EBL 2L. Following surgery, pt was sent to ICU for management and showed improvement but still with persistently elevated WBC. He was found to have pancreatitis on CT scan but lipase and amylase were not elevated. His biliary drain was investigated on 12/16/16 due to leaking and was found to be working properly. 12/19: Given 1uPRBCs from blood loss anemia 12/17 w/Hgb 6.8 and H/H improved to 8.1/24.5. Today H/H 7.3/22.7; will do f/u H/H 1PM and will transfuse 1uPRBCs if <7.0. BP elevated to 161/93, confused overnight and incontinent of urine. Getting scheduled oxycodone q8h for pain control now and pt w/o complaint for pain. IR took biopsies of stricture and mass surrounding stricture yesterday and we are awaiting results to consider further workup. Pt appears to be improved wrt RR but still using accessory muscles of neck; is not clammy today; and is resting more comfortably. CXR shows some improvement in PNA. Continues to be afebrile and WBC reduced to 20.6 today. Vanc trough 13.7; continue Zosyn, Vanc, levaquin and diflucan; ID and GI consulted. 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 Discussed with general surgeon Winston who suspects that the fluid pooling is a small bleed from the catheter exchange. He will discuss with IR on Friday to go over all scans/ tests and come up with a plan. Also spoke with IR Dr. Leahy, who states that he would evaluate the scans and will make a decision on the next steps. 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 Pt received 1uPRBCs early this morning with follow-up H/H indicating pt is hemodynamically stable at 8.7/26.1. Morning labs indicate rising H/H at 9.0/ 27.1. Hypernatremia resolved at 142 this morning. LFTs and Tbili still trending upward, likely 2/2 blood loss--will look to trend down hopefully from here. Pt slight jaundiced as a result w/mild scleral icterus. CXR this morning showing moderate CHF progression--adding one time Lasix 20mg IV to scheduled dosage due to having received blood products, reduce cardiac afterload, and reduce WOB. We had nursing flush his biliary drain which appeared to be clogged with dark fluid ; once flushed, began draining light green bilious fluid. Seen with Dr Pollock and dw Dr Landry Discharge Planning Anticipate discharge once patient is clinically stable, time frame unclear. (Pascual Valero MD R1) Problem List: (1) Pneumonia ICD Codes: J18.9 - Pneumonia, unspecified organism Plan: Pneumonia vs atelectasis on CXR: Stable exam, wheezing not worsened. Afebrile, respiratory rate within normal limits. Continue antibiotics as below. -Stable pulmonary infiltrates on 12/19 -Mild hazy density in the right lung and left base on 12/16/16 PA/lat chest x- ray --> moderate CHF progression on CXR 12/21/17 -Continue Zosyn 3.375 g IV every 6 hours (since 12/01/17) and Levaquin 750 mg every 24 hours IV (12/15-) and Vancomycin 1,750mg IV q24h (12/15-)per ID -Patient also on fluconazole 400mg IV q24h - (since 12/06/17) -Prednisone 40mg PO q12h -Continue Duonebs q4h scheduled -Continue albuterol nebs q2h PRN -Pulmicort 0.5mg nebs (2) Liver hemorrhage ICD Codes: K76.89 - Other specified diseases of liver Status: Acute Plan: -POD#17 ex lap on 12/04 for liver laceration; continues to have blood loss with PLTs 180 from around biliary drain -CT abdomen/pelvis performed on 12/19 shows 2 cm fluid collection below biliary drain - discussed with IR and general surgery. Plan to follow. We will increase metoprolol to 37.5 mg by mouth every 8 hours in order to maintain SBP less than 140 BPM -Stable -Continue pain control as needed -Pt received 1uPRBCs following IR guided embolization of 1cm pseudoaneurysm with AVF -Hgb 9.0 this morning; will monitor with CBC in morning labs; will transfuse 1uPRBCs if Hgb <7.0 (3) Abdominal pain ICD Codes: R10.9 - Unspecified abdominal pain Status: Acute Plan: Stable -12/21: pt with no complaint of pain this morning. BP elevated to 150/89-- Metoprolol 37.5mg as above -12/20: BP intermittently elevated to 156/77, patient tender to palpation of abdomen. Catheter exchange and biopsy performed on 12/18. -12/19: BP elevated overnight to 169/93 but pt not complaining of abdominal pain ; consider hypovolemia/anemia for source of BP elevation -12/18: Cholangiogram and biopsies of stricture and mass outside the stricture; await pathology results; scheduled oxycodone q8h started due to elevated BPs. -IR re-assessed biliary drain on 12/16/16 and it was determined to be working properly; cholangiogram and -GI awaiting results of tumor bx before proceeding further * No plan for EUS until resolution of pancreatitis [place] and morphine IV as needed for pain CT findings as below MRCP findings as below CT of the abdomen and pelvis: 12/19/19: 1. Progression in the extensive acute pancreatitis. No hemorrhage or infarction of the pancreas observed. 2. 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 This is new from the prior study. CT of the abdomen and pelvis: 12/04/17: Moderate volume hemoperitoneum. Interval placement of a right internal/external earlier a drainage catheter. Drain good position. CT of the abdomen and pelvis: 12/11/17: 1. Interval development of diffuse pancreatitis. Diffuse inflammatory changes surrounding the pancreas. 2. Previously noted fluid adjacent to the liver has resolved. 3. Internal/external biliary drainage catheter in place which appears to be in good position and unchanged in position compared to the prior study. 4. Small amount of free fluid deep in the pelvis. 5. Small bilateral pleural effusions. MRCP: 12/02/17: Significant dilation of the intrahepatic ducts ending in the confluence and possibility of stricture at the site or a lack since tumor which is not visualized should be entertained. Wedge-shaped focal fat right hepatic lobe (4) Leukocytosis ICD Codes: D72.829 - Elevated white blood cell count, unspecified Status: Acute Plan: Originally considered a Leukemoid rxn with WBCs in 35-50 range; however, Heme believed to be infection and since broadening of abx, WBC has steadily decreased to 20.6 but back at 29.6 today, likely due to embolization procedure yesterday -Transition to PO Abx when WBC improves per ID -Wound cx of biliary drain fluid NGTD Heme/onc consult reveals likely due to infection -B12 high 2000 /folate wnl -heme occult/[place] ordered (5) Anemia ICD Codes: D64.9 - Anemia, unspecified Plan: Likely 2/2 blood loss -Hgb 9.0 on 12/21 -->monitor with AM CBC -Plan to transfuse if Hgb <7.0 (6) Polymyalgia rheumatica ICD Codes: M35.3 - Polymyalgia rheumatica Status: Chronic Plan: Holding prednisone 5 mg daily, on Prednisone 40 mg PO bid (7) BPH (benign prostatic hyperplasia) ICD Codes: N40.0 - Benign prostatic hyperplasia without lower urinary tract symptoms Status: Chronic Plan: -Continue home finasteride (8) Hypothyroidism ICD Codes: E03.9 - Hypothyroidism, unspecified Status: Chronic Plan: Continue home Synthroid 100 mcg daily (9) FEN/PPX Plan: Fluids: holding fluids due to being overloaded, diuresis with lasix 20mg IV daily, encourage by mouth intake Electrolytes: Monitor and replace PRN Nutrition: Diet per speech therapy and nutrition DVT: SCDs, holding pharmacologic prophylaxis due to acute bleed (Pascual Valero MD R1) Problem Qualifiers (1) Abdominal pain: Qualified Codes: R10.11 - Right upper quadrant pain (2) Leukocytosis: Qualified Codes: D72.829 - Elevated white blood cell count, unspecified (3) BPH (benign prostatic hyperplasia): Qualified Codes: N40.0 - Benign prostatic hyperplasia without lower urinary tract symptoms (4) Hypothyroidism: Qualified Codes: E03.9 - Hypothyroidism, unspecified Pascual Valero MD R1 Dec 21, 2017 09:22 Elena Landry MD Dec 22, 2017 14:32
[2017-12-21 09:23] LABS: MONOCYTES 4 % (0-8); MYELOCYTES 1 % (0-0); NEUTROPHIL # MANUAL DIFF 28.7 TH/MM3 (1.8-7.7); POLYS (SEG NEUTROPHILS) 95 % (16-70)
[2017-12-21 09:25] LABS: HYPERSEGMENTED POLYS 1+ (NORMAL); STOMATOCYTES 1+ (NORMAL); TARGET CELLS 1+ (NORMAL)
[2017-12-21] MEDS: ALBUMIN 25% INJ 50 ML IV SCH ×2 (11:53→23:03)
[2017-12-21] MEDS: FUROSEMIDE 20 MG/2 ML VIAL IV PUSH SCH (12:32)
--- NOTE | 2017-12-21 12:54 | HHI.GIFU ---
Subjective Remarks Patient is resting in bed, still with abd pain, and poor appetite (Osmani,Angieawramón IMPROVEMENT SPECIALIST) Objective Vitals I&O Vital Signs Date Time Temp Pulse Resp B/P (MAP) Pulse Ox O2 Delivery O2 Flow Rate FiO2 12/21/17 12:00 72 12/21/17 11:22 74 24 133/76 (95) 93 12/21/17 11:00 73 12/21/17 10:00 84 12/21/17 09:10 159/86 (110) 12/21/17 09:00 84 12/21/17 08:20 98 Nasal Cannula 4.00 12/21/17 08:00 82 12/21/17 07:53 97 Nasal Cannula 4.00 12/21/17 07:50 98.2 82 19 163/86 (111) 97 12/21/17 07:00 85 12/21/17 05:46 97.4 80 150/87 (108) 99 12/21/17 05:00 78 12/21/17 04:10 80 12/21/17 03:59 97.4 80 150/87 98 12/21/17 03:00 70 12/21/17 02:00 76 12/21/17 01:00 84 12/21/17 00:55 97.6 82 151/79 98 12/21/17 00:38 96.6 78 143/78 99 12/21/17 00:00 96.6 78 143/78 (99) 99 12/21/17 00:00 76 12/20/17 23:00 74 12/20/17 23:00 Nasal Cannula 2.00 12/20/17 22:00 78 12/20/17 21:00 70 12/20/17 20:00 74 12/20/17 20:00 98.8 73 137/77 (97) 99 12/20/17 19:29 99 Nasal Cannula 2.00 12/20/17 19:00 73 12/20/17 18:01 74 20 122/62 (82) 99 12/20/17 18:01 72 12/20/17 17:39 80 19 125/71 (89) 100 12/20/17 17:06 75 19 108/52 (70) 92 12/20/17 17:00 74 12/20/17 16:10 77 20 109/57 (74) 92 12/20/17 16:00 97.0 80 20 138/75 (96) 92 12/20/17 16:00 97.0 80 20 138/75 (96) 92 12/20/17 16:00 77 12/20/17 15:58 78 12/20/17 13:00 84 I/O 12/20/17 12/20/17 12/20/17 12/21/17 12/21/17 12/21/17 07:00 15:00 23:00 07:00 15:00 23:00 Intake Total 921 ml 290 ml 250 ml 1275 ml 240 ml Output Total 200 ml 552 ml 1300 ml 800 ml Balance 721 ml -262 ml -1050 ml 1275 ml -560 ml Intake Oral 240 ml 240 ml IV Total 921 ml 50 ml 250 ml Packed Cells 400 ml Blood Product IV Normal Saline Flush 875 ml Output Urine Total 200 ml 300 ml 1300 ml 800 ml Stool Total 2 ml Drainage Total 250 ml # Voids 2 # Bowel Movements 2 Laboratory Laboratory Tests Test 12/20/17 18:52 12/21/17 05:17 12/21/17 07:40 Hemoglobin 6.8 8.7 9.0 Hematocrit 20.3 26.1 27.3 White Blood Count 29.9 Red Blood Count 2.98 Mean Corpuscular Volume 91.8 Mean Corpuscular Hemoglobin 30.4 Mean Corpuscular Hemoglobin Concent 33.1 Red Cell Distribution Width 19.2 Platelet Count 183 Mean Platelet Volume 9.8 Neutrophils (%) (Auto) 94.7 Lymphocytes (%) (Auto) 1.1 Monocytes (%) (Auto) 4.0 Eosinophils (%) (Auto) 0.0 Basophils (%) (Auto) 0.2 Neutrophils # (Auto) 28.3 Lymphocytes # (Auto) 0.3 Monocytes # (Auto) 1.2 Eosinophils # (Auto) 0.0 Basophils # (Auto) 0.1 CBC Comment AUTO DIFF Differential Total Cells Counted 100 Neutrophils % (Manual) 95 Monocytes % 4 Neutrophils # (Manual) 28.7 Myelocytes 1 Differential Comment FINAL DIFF MANUAL Hypersegmented Polys 1+ Platelet Estimate NORMAL Platelet Morphology Comment NORMAL Target Cells 1+ Stomatocytes 1+ Blood Urea Nitrogen 23 Creatinine 0.74 Random Glucose 143 Total Protein 5.5 Albumin 2.8 Calcium Level 9.5 Alkaline Phosphatase 207 Aspartate Amino Transf (AST/SGOT) 170 Alanine Aminotransferase (ALT/SGPT) 197 Total Bilirubin 8.8 Sodium Level 142 Potassium Level 3.7 Chloride Level 101 Carbon Dioxide Level 38.0 Anion Gap 3 Estimat Glomerular Filtration Rate 102 Date/Time Source Procedure Growth Status 12/15/17 19:58 Blood Peripheral Aerobic Blood Culture - Final NO GROWTH IN 5 DAYS Complete 12/15/17 19:58 Blood Peripheral Anaerobic Blood Culture - Final NO GROWTH IN 5 DAYS Complete 12/04/17 00:42 Fluid Bile Fluid Gram Stain - Final Complete 12/04/17 00:42 Body Fluid Culture - Final Marielle Albicans Complete 12/20/17 05:13 Stool Stool Stool Occult Blood (RADHA) - Final HEMOCCULT POSITIVE Complete 12/16/17 12:53 Urine Clean Catch Legionella Antigen - Final PRESUMPTIVE NEGATIVE FOR LEGIONELLA P... Complete 12/16/17 12:53 Urine Clean Catch Streptococcus pneumoniae Antigen (M - Final PRESUMPTIVE NEGATIVE FOR STREPTOCOCCU... Complete 12/14/17 00:30 Wound Abdomen Gram Stain - Final Complete 12/14/17 00:30 Wound Abdomen Wound Culture - Final NO GROWTH IN 72 HRS.--AEROBICALLY OR ... Complete Imaging Last Impressions Chest X-Ray 12/21/17 0000 Signed Impressions: Service Date/Time: Thursday, December 21, 2017 07:43 - CONCLUSION: Moderate CHF progress. K. Gurvinder Jean MD Celiac/Hepatic Arteriogram 12/20/17 0000 Signed Impressions: Service Date/Time: Wednesday, December 20, 2017 15:32 - CONCLUSION: 1. 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 Followup angiography demonstrated complete exclusion of the pseudoaneurysm and fistula with normal appearing flow within the hepatic branches. Lion Leahy MD Abdomen/Pelvis CT 12/19/17 0000 Signed Impressions: Service Date/Time: Tuesday, December 19, 2017 20:07 - CONCLUSION: 1. Progression in the extensive acute pancreatitis. No hemorrhage or infarction of the pancreas observed. 2. 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 This is new from the prior study. 3. Splenic vein remains patent. 4. Stable small bilateral pleural effusions and associated atelectasis. Jung Lundberg Jr., MD Biopsy X-Ray 12/18/17 0000 Signed Impressions: Service Date/Time: December 14:47 - CONCLUSION: Uncomplicated fluoroscopic guided biliary forceps biopsy and internal/external drainage catheter exchange as described in detail above Landry Mithcell MD Cholangiogram 12/16/17 0000 Signed Impressions: Service Date/Time: Saturday, December 16, 2017 17:07 - CONCLUSION: There is no drainage catheter complication. The patient does not have significant accumulation of abdominal ascites along the liver surface to potentially exacerbate fluid leakage along the tube tract. The fluid drainage appears to be benign serosanguinous. Dressing changes p.r.n. recommended. Landry Mitchell MD Abdomen Ultrasound 12/14/17 0000 Signed Impressions: Service Date/Time: Thursday, December 14, 2017 09:01 - CONCLUSION: Limited study due to bandages on the abdomen and bowel gas. Focal fatty infiltration right lobe of liver again seen. Gallbladder appears collapsed. Minimal ascites. Jerry Laureano MD Abdomen X-Ray 12/13/17 0000 Signed Impressions: Service Date/Time: Wednesday, December 13, 2017 18:55 - CONCLUSION: Nothing acute demonstrated. Nonobstructive bowel gas pattern and no free air. Evidence of right upper quadrant surgery and a internal/external biliary drainage catheter again noted. Landry Ryan MD Head CT 12/09/17 0000 Signed Impressions: Service Date/Time: Saturday, December 09, 2017 20:02 - CONCLUSION: Negative noncontrast head CT. Landry Ryan MD Bile Duct Drainage 12/03/17 0000 Signed Impressions: Service Date/Time: Sunday, December 03, 2017 14:10 - CONCLUSION: Uncomplicated biliary stent placement as above. Bj Hurtado MD Cholangiopancreatography MRI 12/02/17 0000 Signed Impressions: Service Date/Time: Saturday, December 02, 2017 08:17 - CONCLUSION: 1. Significant dilatation of the intrahepatic ducts ending at the confluence and possibility of stricture at this site or a Klatskin's tumor which is not visualized should be entertained. 2. Wedge-shaped focal fat right hepatic lobe. KLivier Jean MD Physical Exam HEENT: Normocephalic; atraumatic, eyes icteric CHEST: Low volumes, diminished breath sounds, no audible wheezing CARDIAC: RRR ABDOMEN: Soft and mild distention some tenderness no rebound or guarding, bowel sounds active. Biliary drain EXTREMITIES: No clubbing, cyanosis, or edema. SKIN: + jaundice. Dry RADIO PROGRAM DIRECTOR: Awake , weak (Malik Keen) Assessment and Plan Plan Initial W/U- abd pain, elevated LFTs, elevated ca 19-9 - 85, poss malignancy Ct done showed intrahepatic biliary duct dilatation without extrahepatic biliary duct dilatation concern for a lesion at the intrahepatic biliary duct or CBD level, MRCP showed Significant dilatation of the intrahepatic ducts ending at the confluence and possibility of stricture at this site or a Klatskin's tumor which is not visualized should be entertained s/p placement biliary drain by IR. Capsular tear liver, s/p ex lap and control liver laceration bleed Anemia, 7.3 today , asymptomatic ,persist status post procedure yesterday, need to continue to monitor hemoglobin especially after procedure CT 12/11/17, Pancreatits with inflammatory change persists. Drain good placement elevated LFTs ([place], AMA, ASMA, ceruloplasmin, alpha-1 antitrypsin, celiac panel) , Hepatitis panel negative LFTs continue elevated, mild rise. 167/[address] 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 Complete occlusion of the aneurism on follow up angio. 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 Stanton and this note has been written on his behalf (Malik Keen) Physician Comments Patient seen and examined Agree with above Continue with current supportive care Monitor labs LFTs seem to be stable at this point but etiology is still not clear for their elevation Consideration is made for liver biopsy but for now we will continue to monitor (Carlton Stanton MD) Malik Keen Dec 21, 2017 12:54 Carlton Stanton MD Dec 21, 2017 21:27
[2017-12-21] MEDS: LEVOFLOXACIN 750 MG PREMIX INJ 150 ML IV SCH (14:26)
[2017-12-21] MEDS: FLUCONAZOLE 400 MG PREMIX BAG 200 ML IV SCH (17:00)
[2017-12-21] MEDS: VANCOMYCIN INJ 2,000 MG in SODIUM CHLORID 0.9% 500 ML INJ 500 ML IV SCH (17:00)
[2017-12-21 21:59] LABS: INTERNATIONAL NORMALIZED RATIO 1.8 RATIO; PROTHROMBIN TIME - PATIENT 18.1 SEC (9.8-11.6)
[2017-12-22] VITALS (17 sets, daily range): BP systolic 107–130; BP diastolic 57–76; PULSE 82–100; RESP 18–28; TEMP 97.3–99.1; O2SAT 97–99
[2017-12-22] MEDS: PIPERACILLIN/TAZ 3.375 GM VIAL 3.375 GM in SODIUM CHLORIDE 0.9% INJ 50 ML IV SCH ×3 (03:49→16:00)
[2017-12-22] MEDS: LEVOTHYROXINE SODIUM 100 MCG TAB PO SCH ×2 (05:28→21:27)
[2017-12-22] MEDS: METOPROLOL TARTRATE 25 MG TAB PO SCH ×4 (05:29→21:28)
[2017-12-22] MEDS: CHLORHEXIDINE 0.12% (ORAL KIT) 15 ML CUP MT SCH ×2 (08:00→20:00)
[2017-12-22] MEDS: SODIUM CHLORIDE 0.9% FLUSH 10 ML FLUSH IV FLUSH SCH ×2 (09:00→21:00)
[2017-12-22] MEDS: URSODIOL 300 MG CAP PO SCH ×2 (09:00→21:00)
[2017-12-22] MEDS: POTASSIUM CHLORIDE 20 MEQ CONTROLLED RELEASE TAB PO SCH (09:00)
[2017-12-22] MEDS: FINASTERIDE 5 MG TAB PO SCH (09:00)
[2017-12-22] MEDS: LACTULOSE SYRUP 20 GM/30 ML CUP PO SCH (09:00)
[2017-12-22] MEDS: predniSONE 20 MG TAB PO SCH (09:00)
[2017-12-22] MEDS: DOCUSATE SODIUM 50 MG/SENNA 8.6 MG TAB PO SCH ×2 (09:00→21:26)
[2017-12-22] MEDS: PANTOPRAZOLE SODIUM 40 MG VIAL IV PUSH SCH (09:00)
[2017-12-22] MEDS: RESP: BUDESONIDE 0.5 MG/2 ML NEB NEB SCH ×2 (09:52→21:13)
[2017-12-22] MEDS: RESP: ALBUTEROL 2.5 MG/3 ML NEB (PRN) NEB (09:55)
--- NOTE | 2017-12-22 10:55 | PD.CONS ---
Consult Service Palliative Care Consult Requested By Dr. Pollock Primary Care Physician Unknown Reason for Consultation a. To assist with evaluation and management of symptoms including: Pain, poor appetite b. To assist medical decision maker(s) with: better understanding of current medical conditions; weighing benefits/burdens of medical treatment options; making medical treatment decisions. HPI History of Present Illness This is an 82-year-old male was admitted to [facility] 12/01/17 with a complaint of constipation, nausea, hematuria and dysuria with right upper quadrant abdominal pain for the prior 3 days. His history includes 3 abdominal hernia repairs. Patient has a previous history of fairly heavy alcohol use but quit in 1982. The patient's had noted jaundice over the prior 3 days. Liver function tests showed WBCs 19.8, a total bilirubin of 6.3, AST/ALT 59/77 and ALP 366. Lipase was not elevated. Initial CT showed intrahepatic biliary duct dilation without extrahepatic biliary duct dilation causing concern for a lesion at the intrahepatic biliary duct or CBD level. MRCP showed significant dilation of the intrahepatic ducts ending at the confluence and possibly of stricture at this site or a Klatskin's tumor which is not visualized in the differential. On he underwent placement of a biliary drainage tube by Dr. Hurtado of interventional radiology. Postprocedure he was hypotensive, not corrected by 1.5 L fluid bolus and stress dose steroids so was transferred to ICU with critical care medicine consult. There was immediate concern for hemorrhagic shock with hemoglobin drop from 13 to 9.4 and leukocytosis of 27.5. Stat call placed to Dr. Montero for general surgery and patient underwent emergent laparotomy. Prior to transition to OR he received 7 units of packed red blood cells, 2 units of FFP and 1 g of calcium chloride with an additional unit of FFP , 1 unit of platelets and 1 unit of cryoprecipitate ready for transfusion. Exploratory laparotomy revealed hemoperitoneum and a capsular tear on segment 6 of the liver, likely from an adhesion during the procedure, which was actively bleeding. There was a very large clot under the liver as well as 1500 cc of free blood within the abdominal cavity which was surgically corrected. He underwent infectious disease consultation due to leukocytosis of 50,000, bile fluid culture growing Marielle albicans and blood cultures positive for staph epi. On December 11 CT of the abdomen and pelvis showed interval development of diffuse pancreatitis with inflammatory changes surrounding the pancreas. 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 Pathology is pending. Repeat abdomen/pelvis CT done 12/19 shows progression in the extensive, acute pancreatitis without hemorrhage or infarction. A new finding of a 2.2 cm pool of contrast involving the right lobe of the liver just inferior to the internal/external biliary drain likely related to a small pseudoaneurysm. 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 Follow-up angiography demonstrated complete exclusion of the pseudoaneurysm and fistula with normal-appearing flow within the hepatic branches. Clinical data: * Laboratory: WBC 29.9, hemoglobin 9.0, hematocrit 27.3, platelets 183, PT 18.1 , INR 1.8, sodium 142, potassium 3.7, BUN 23, creatinine 0.74, total bilirubin 8.8, AST 170, ALT 197, alkaline phosphatase 207, alpha 1 antitrypsin 229, ceruloplasmin 36, hepatitis panel was negative. * Hematology:Has received 8 units PRBC, 4 FFP, 1 plts, 1 unit cryo. * Pathology: Peripheral smear showed leukocytosis with neutrophilia, left shift in maturation with toxic granulation and occasional Dohle bodies, suggesting a reactive or infectious process. Moderate normochromic, normocytic anemia. Biliary tract biopsy taken 12/18 is pending. . Function/Cognitive Trajectory The states the patient's memory has declined slightly but is generally oriented. During hospitalization he has been intermittently confused. She feels his decline has been acute. . Review of Systems ROS Limitations: Clinical Condition Constitutional: COMPLAINS OF: Weight gain, Change in appetite, Generalized weakness Endocrine: DENIES: Heat/cold intolerance, Polydipsia, Polyuria, Polyphagia Eyes: DENIES: Blurred vision, Diplopia, Eye inflammation, Eye pain, Vision loss , Photosensitivity, Double Vision, Blind spots Ears, nose, mouth, throat: COMPLAINS OF: Hearing loss Respiratory: DENIES: Apneas, Cough, Snoring, Wheezing, Hemoptysis, Sputum production, Shortness of breath Cardiovascular: DENIES: Chest pain, Palpitations, Syncope, Dyspnea on Exertion , PND, Lower Extremity Edema, Orthopnea, Claudication Gastrointestinal: COMPLAINS OF: Abdominal pain, Nausea, Difficulty Swallowing Genitourinary: DENIES: Sexual dysfunction, Urinary frequency, Urinary incontinence, Urgency, Hematuria, Dysuria, Nocturia, Penile Discharge, Testicular Pain, Testicular Swelling, Hesitancy, Dribbling, Decreased stream Musculoskeletal: DENIES: Joint pain, Muscle aches, Stiffness, Joint Swelling, Back pain, Neck pain, Decreased range of motion Integumentary: DENIES: Abnormal pigmentation, Nail changes, Pruritus, Rash, Nodules, Tumors, Excessive dryness, Non-healing sores Hematologic/Lymphatics: DENIES: Bruising, Lymphadenopathy, Prolonged bleed w/ proced, History of transfusions Immunologic/Allergic: DENIES: Eczema, Urticaria Neurologic: DENIES: Abnormal gait, Headache, Localized weakness, Paresthesias, Seizures, Speech Problems, Tremor, Poor Balance, Change in smell or taste Psychiatric: COMPLAINS OF: Confusion Past Family Social History Coded Allergies: No Known Allergies (Unverified Allergy, Unknown, 12/01/17) Past Medical History BPH Polymyalgia Rheumatica Hyperlipidemia . Past Surgical History Neck surgery 2015 - cervical fusion (?) Back surgery 2009 - laminectomy with fusion (?) Biliary drain placement 2018 Exploratory laparotomy 2018 Biliary duct biopsy 2018 . Reported Medications Reported Meds & Active Scripts Active Levothyroxine (Levothyroxine Sodium) 112 Mcg Tab 112 Mcg PO DAILY Reported Finasteride 5 Mg Tab 5 Mg PO DAILY Do not crush. Omeprazole 20 Mg Tab 20 Mg PO DAILY PRN Prednisone 5 Mg Tab 5 Mg PO DAILY Current Medications Medications (Trade) Dose Ordered Sig/Rafa Route Start Time Stop Time Status Last Admin (NS Flush) 2 ml UNSCH PRN IV FLUSH 12/01/17 11:00 (NS Flush) 2 ml BID IV FLUSH 12/01/17 21:00 12/21/17 21:55 (Zofran Inj) 4 mg Q6H PRN IVP 12/01/17 11:00 12/16/17 06:18 ([place]thens 5-325 Mg) 1 tab Q4H PRN PO 12/01/17 11:00 ([place] 10-325 Mg) 1 tab Q4H PRN PO 12/01/17 11:00 12/14/17 13:48 (Narcan Inj) 0.4 mg UNSCH PRN IV PUSH 12/01/17 11:00 (Deedee-Colace) 1 tab BID PO 12/01/17 21:00 12/21/17 09:12 (Milk Of Magnesia Liq) 30 ml Q12H PRN PO 12/01/17 11:00 12/09/17 05:20 (Senokot) 17.2 mg Q12H PRN PO 12/01/17 11:00 (Dulcolax Supp) 10 mg DAILY PRN RECTAL 12/01/17 11:00 (Lactulose Liq) 30 ml DAILY PRN PO 12/01/17 11:00 (Proscar) 5 mg DAILY PO 12/02/17 09:00 Future hold 12/21/17 09:14 (Deltasone) 5 mg DAILY PO 12/02/17 09:00 Future Hold 12/15/17 11:52 (Peridex 0.12% Liq) 15 ml BID@08,20 MT 12/04/17 08:00 12/08/17 20:00 Fluconazole/ Sodium Chloride 200 ml @ 100 mls/hr Q24H IV 12/06/17 17:00 12/21/17 17:00 (Albuterol Neb) 2.5 mg Q2HR NEB PRN NEB 12/05/17 22:00 12/22/17 09:55 (Synthroid) 100 mcg DAILY@0600 PO 12/08/17 06:00 12/22/17 05:28 (Melatonin) 5 mg HS PRN PO 12/07/17 21:00 12/17/17 23:20 (Tylenol) 500 mg Q6H PRN PO 12/08/17 08:30 (Protonix Inj) 40 mg DAILY IV PUSH 12/10/17 09:00 12/21/17 09:15 (Lactulose Liq) 30 ml DAILY PO 12/11/17 09:00 12/21/17 09:13 (Pulmicort Respule Neb) 0.5 mg Q12HR NEB NEB 12/12/17 09:45 12/22/17 09:52 (KCl) 20 meq DAILY PO 12/14/17 09:00 12/21/17 09:11 (Actigall) 300 mg Q12HR PO 12/13/17 21:00 12/21/17 09:12 Albumin Human 50 ml @ 60 mls/hr Q12H IV 12/14/17 12:00 12/21/17 23:03 (Lasix Inj) 20 mg DAILY@1215 IV PUSH 12/14/17 12:15 12/21/17 12:32 Piperacillin Sod/ Tazobactam Sod 3.375 gm/Sodium Chloride 50 ml @ 100 mls/hr Q6H IV 12/15/17 04:00 12/22/17 03:49 Pharmacy Profile Note 0 ml @ 0 mls/hr UNSCH OTHER 12/15/17 13:15 Levofloxacin/ Dextrose 150 ml @ 100 mls/hr Q24H IV 12/15/17 14:00 12/21/17 14:26 (Morphine Inj) 1 mg Q4H PRN IV PUSH 12/15/17 16:15 (Roxicodone) 5 mg Q8H PO 12/18/17 17:00 12/21/17 22:58 Vancomycin HCl 2000 mg/Sodium Chloride 520 ml @ 250 mls/hr Q24H IV 12/19/17 17:00 12/21/17 17:00 Miscellaneous Information SPECIFIC LAB TO BE ... ONCE ONCE .XX 12/22/17 16:45 12/22/17 16:46 (Pill Splitter) 1 ea UNSCH PRN OTHER 12/20/17 10:30 (Deltasone) 40 mg BID PO 12/20/17 21:00 12/21/17 23:00 (NS Flush) 2 ml UNSCH PRN IV FLUSH 12/21/17 07:45 (Lopressor) 37.5 mg Q8HR PO 12/21/17 14:00 12/22/17 05:29 . Family History Father - due to old age Mother - due to colon cancer, age > 65 Brothers - 4 , 1 living Sisters - 2 , 1 living Several family members with h/o colon polyps and colon cancer . Substance Use Tobacco: Smoked 2 packs per day for 60 years with periods of intermittent abstinence. Quit in 1985. Alcohol: History of heavy alcohol use but virtually none for the last 10 years. Prescription med abuse: No history of prescription drug abuse. Illicits: No history of illicit drug use. . Psychosocial History He was born and brought up in [place] where he completed high school and 2 years of college. Currently lives with his of 21 years. He has 3 children by his prior marriage, one boy and 2 girls all live in [place]. 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 They moved to [place] in August as his physician thought that a climate change might help his severe polymyalgia rheumatica, however he has seen no improvement so is planning to move back to [place], or [place] where his stepchildren live. . Spiritual/Cultural Factors Spirituality is important to him. He identifies as a Yarsani and would appreciate core inspector visits. . Living Will: Never completed Health Care Surrogate: Never completed Durable Power of Testing Engineer: Never completed Physical Exam Vital Signs Date Time Temp Pulse Resp B/P (MAP) Pulse Ox O2 Delivery O2 Flow Rate FiO2 12/22/17 09:58 Nasal Cannula 2.00 12/22/17 07:35 97 Nasal Cannula 3.00 12/22/17 07:35 97.5 94 28 110/71 (84) 97 12/22/17 06:00 92 12/22/17 05:00 92 12/22/17 04:00 95 18 124/69 (87) 97 12/22/17 04:00 96 12/22/17 03:00 94 12/22/17 02:00 100 12/22/17 01:00 96 12/22/17 00:00 90 12/21/17 23:00 95 20 164/96 (118) 97 12/21/17 23:00 100 12/21/17 22:00 90 12/21/17 21:00 84 12/21/17 20:24 97 Nasal Cannula 2.00 12/21/17 20:00 82 12/21/17 19:00 84 12/21/17 19:00 97 Nasal Cannula 2.00 12/21/17 19:00 85 20 148/75 (99) 97 12/21/17 18:05 86 12/21/17 17:00 78 12/21/17 16:00 82 12/21/17 15:16 97.3 77 19 149/82 (104) 98 12/21/17 15:00 79 12/21/17 14:00 80 12/21/17 13:00 78 12/21/17 12:00 72 12/21/17 11:22 74 24 133/76 (95) 93 12/21/17 11:00 73 Exam CONSTITUTIONAL/GENERAL: This is a morbidly obese, elderly male, lying in bed in no acute distress. TUBES/LINES/DRAINS: PIV SKIN: Mild jaundice noted. No rashes or lesions. Warm dry and intact. HEAD: Atraumatic. Normocephalic. EYES: Pupils equal and round and reactive. Extraocular motions intact. No scleral icterus. No injection or drainage. Fundi not examined. ENT: Hearing diminished. Nose without bleeding or purulent drainage. Throat without visible erythema, exudates, masses, or lesions. NECK: Trachea midline. Supple, nontender. No palpable thyroid enlargement or nodularity. CARDIOVASCULAR: Regular rate and rhythm without murmurs, gallops, or rubs. No JVD. Peripheral pulses symmetric. RESPIRATORY/CHEST: Breath sounds shallow, tachypneic with scattered wheezes and coarse rhonchi throughout. GASTROINTESTINAL: Abdomen obese, soft, tender to palpation, nondistended. No guarding. Bowel sounds present. GENITOURINARY: Without palpable bladder distension. Carmona catheter in place. MUSCULOSKELETAL: Extremities without clubbing, cyanosis, or edema. No joint tenderness or effusion noted. No calf tenderness. No mottling or clubbing. LYMPHATICS: No palpable cervical or supraclavicular adenopathy. NEUROLOGICAL: Awake and alert, confused, occasionally refusing to answer questions. Motor and sensory grossly within normal limits. Follows commands. Moves all extremities. PSYCHIATRIC: Uncooperative with exam, no agitation. . Diagnostic Tests Laboratory Laboratory Tests Test 12/19/17 15:08 12/20/17 05:26 12/20/17 12:25 12/20/17 18:52 Hemoglobin 7.8 GM/DL (13.0-17.0) 7.3 GM/DL (13.0-17.0) 7.7 GM/DL (13.0-17.0) 6.8 GM/DL (13.0-17.0) Hematocrit 24.2 % (39.0-51.0) 22.9 % (39.0-51.0) 24.3 % (39.0-51.0) 20.3 % (39.0-51.0) White Blood Count 24.7 TH/MM3 (4.0-11.0) Red Blood Count 2.41 MIL/MM3 (4.50-5.90) Mean Corpuscular Volume 95.1 FL (80.0-100.0) Mean Corpuscular Hemoglobin 30.5 PG (27.0-34.0) Mean Corpuscular Hemoglobin Concent 32.0 % (32.0-36.0) Red Cell Distribution Width 18.5 % (11.6-17.2) Platelet Count 210 TH/MM3 (150-450) Mean Platelet Volume 10.2 FL (7.0-11.0) Blood Urea Nitrogen 23 MG/DL (7-18) Creatinine 0.74 MG/DL (0.60-1.30) Random Glucose 133 MG/DL (74-106) Total Protein 5.4 GM/DL (6.4-8.2) Albumin 2.7 GM/DL (3.4-5.0) Calcium Level 9.9 MG/DL (8.5-10.1) Alkaline Phosphatase 195 U/L (45-117) Aspartate Amino Transf (AST/SGOT) 166 U/L (15-37) Alanine Aminotransferase (ALT/SGPT) 187 U/L (12-78) Total Bilirubin 8.6 MG/DL (0.2-1.0) Sodium Level 146 MEQ/L (136-145) Potassium Level 4.0 MEQ/L (3.5-5.1) Chloride Level 103 MEQ/L (98-107) Carbon Dioxide Level 35.4 MEQ/L (21.0-32.0) Anion Gap 8 MEQ/L (5-15) Estimat Glomerular Filtration Rate 102 ML/MIN (>89) Test 12/21/17 05:17 12/21/17 07:40 12/21/17 20:09 Hemoglobin 8.7 GM/DL (13.0-17.0) 9.0 GM/DL (13.0-17.0) Hematocrit 26.1 % (39.0-51.0) 27.3 % (39.0-51.0) White Blood Count 29.9 TH/MM3 (4.0-11.0) Red Blood Count 2.98 MIL/MM3 (4.50-5.90) Mean Corpuscular Volume 91.8 FL (80.0-100.0) Mean Corpuscular Hemoglobin 30.4 PG (27.0-34.0) Mean Corpuscular Hemoglobin Concent 33.1 % (32.0-36.0) Red Cell Distribution Width 19.2 % (11.6-17.2) Platelet Count 183 TH/MM3 (150-450) Mean Platelet Volume 9.8 FL (7.0-11.0) Neutrophils (%) (Auto) 94.7 % (16.0-70.0) Lymphocytes (%) (Auto) 1.1 % (9.0-44.0) Monocytes (%) (Auto) 4.0 % (0.0-8.0) Eosinophils (%) (Auto) 0.0 % (0.0-4.0) Basophils (%) (Auto) 0.2 % (0.0-2.0) Neutrophils # (Auto) 28.3 TH/MM3 (1.8-7.7) Lymphocytes # (Auto) 0.3 TH/MM3 (1.0-4.8) Monocytes # (Auto) 1.2 TH/MM3 (0-0.9) Eosinophils # (Auto) 0.0 TH/MM3 (0-0.4) Basophils # (Auto) 0.1 TH/MM3 (0-0.2) CBC Comment AUTO DIFF Differential Total Cells Counted 100 Neutrophils % (Manual) 95 % (16-70) Monocytes % 4 % (0-8) Neutrophils # (Manual) 28.7 TH/MM3 (1.8-7.7) Myelocytes 1 % (0-0) Differential Comment FINAL DIFF MANUAL Hypersegmented Polys 1+ (NORMAL) Platelet Estimate NORMAL (NORMAL) Platelet Morphology Comment NORMAL (NORMAL) Target Cells 1+ (NORMAL) Stomatocytes 1+ (NORMAL) Blood Urea Nitrogen 23 MG/DL (7-18) Creatinine 0.74 MG/DL (0.60-1.30) Random Glucose 143 MG/DL (74-106) Total Protein 5.5 GM/DL (6.4-8.2) Albumin 2.8 GM/DL (3.4-5.0) Calcium Level 9.5 MG/DL (8.5-10.1) Alkaline Phosphatase 207 U/L (45-117) Aspartate Amino Transf (AST/SGOT) 170 U/L (15-37) Alanine Aminotransferase (ALT/SGPT) 197 U/L (12-78) Total Bilirubin 8.8 MG/DL (0.2-1.0) Sodium Level 142 MEQ/L (136-145) Potassium Level 3.7 MEQ/L (3.5-5.1) Chloride Level 101 MEQ/L (98-107) Carbon Dioxide Level 38.0 MEQ/L (21.0-32.0) Anion Gap 3 MEQ/L (5-15) Estimat Glomerular Filtration Rate 102 ML/MIN (>89) Prothrombin Time 18.1 SEC (9.8-11.6) Prothromb Time International Ratio 1.8 RATIO Activated Partial Thromboplast Time 28.2 SEC (24.3-30.1) . Result Diagram: 12/21/17 0740 12/21/17 0740 Microbiology Microbiology Date/Time Source Procedure Growth Status 12/20/17 05:13 Stool Stool Stool Occult Blood (RADHA) - Final HEMOCCULT POSITIVE Complete Imaging Last Impressions Chest X-Ray 12/21/17 0000 Signed Impressions: Service Date/Time: Thursday, December 21, 2017 07:43 - CONCLUSION: Moderate CHF progress. K. Gurvinder Jean MD Celiac/Hepatic Arteriogram 12/20/17 0000 Signed Impressions: Service Date/Time: Wednesday, December 20, 2017 15:32 - CONCLUSION: 1. 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 Followup angiography demonstrated complete exclusion of the pseudoaneurysm and fistula with normal appearing flow within the hepatic branches. Lion Leahy MD Abdomen/Pelvis CT 12/19/17 0000 Signed Impressions: Service Date/Time: Tuesday, December 19, 2017 20:07 - CONCLUSION: 1. Progression in the extensive acute pancreatitis. No hemorrhage or infarction of the pancreas observed. 2. 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 This is new from the prior study. 3. Splenic vein remains patent. 4. Stable small bilateral pleural effusions and associated atelectasis. Jung Lundberg Jr., MD Biopsy X-Ray 12/18/17 0000 Signed Impressions: Service Date/Time: December 14:47 - CONCLUSION: Uncomplicated fluoroscopic guided biliary forceps biopsy and internal/external drainage catheter exchange as described in detail above Landry Mitchell MD Cholangiogram 12/16/17 0000 Signed Impressions: Service Date/Time: Saturday, December 16, 2017 17:07 - CONCLUSION: There is no drainage catheter complication. The patient does not have significant accumulation of abdominal ascites along the liver surface to potentially exacerbate fluid leakage along the tube tract. The fluid drainage appears to be benign serosanguinous. Dressing changes p.r.n. recommended. Landry Mitchell MD Abdomen Ultrasound 12/14/17 0000 Signed Impressions: Service Date/Time: Thursday, December 14, 2017 09:01 - CONCLUSION: Limited study due to bandages on the abdomen and bowel gas. Focal fatty infiltration right lobe of liver again seen. Gallbladder appears collapsed. Minimal ascites. Jerry Laureano MD Abdomen X-Ray 12/13/17 0000 Signed Impressions: Service Date/Time: Wednesday, December 13, 2017 18:55 - CONCLUSION: Nothing acute demonstrated. Nonobstructive bowel gas pattern and no free air. Evidence of right upper quadrant surgery and a internal/external biliary drainage catheter again noted. Landry Ryan MD Head CT 12/09/17 0000 Signed Impressions: Service Date/Time: Saturday, December 09, 2017 20:02 - CONCLUSION: Negative noncontrast head CT. Landry Ryan MD Bile Duct Drainage 12/03/17 0000 Signed Impressions: Service Date/Time: Sunday, December 03, 2017 14:10 - CONCLUSION: Uncomplicated biliary stent placement as above. Bj Hurtado MD Cholangiopancreatography MRI 12/02/17 0000 Signed Impressions: Service Date/Time: Saturday, December 02, 2017 08:17 - CONCLUSION: 1. Significant dilatation of the intrahepatic ducts ending at the confluence and possibility of stricture at this site or a Klatskin's tumor which is not visualized should be entertained. 2. Wedge-shaped focal fat right hepatic lobe. Luz Jean MD . Procedures 12/03: Biliary drain placement 12/04: Right IJ central line 12/04: Left femoral central line 12/04: Endotracheal intubation 12/04: Exploratory laparotomy 12/20: Forceps biopsy . Patient/Family Conference Present at Family Conference: Spoke with at bedside. Patient was confused and uncooperative today, refusing to answer questions, refusing his medications. Discussed patient's clinical course and pending pathology results with . Reviewed palliative care purpose and focus. I dressed the below listed items. At this time the wishes to continue his full CODE STATUS until the pathology is available to make further decisions. Palliative care contact information was provided for any further questions. Family Conference Time (mins): 40 Family Conference Location: Bedside Issues Discussed: * Palliative care role, purpose, approach * Additional medical, psychosocial, and spiritual history * Patients general health, functional status, and cognitive changes in the months leading up to the current hospitalization * Patient/family understanding of the current medical problems * Patient/family understanding of prognosis * Patients goals of care as best understood from advance directives and/or conversations and/or values * Current medical treatment options and benefits/burdens of those options * Likely scenarios comparing ongoing aggressive care with a transition to comfort measures only * Questions answered to the best of my ability * Palliative care contact information provided Assessment and Plan Disease Oriented Problem List: (1) Pancreatitis (2) Anemia (3) Leukocytosis (4) Liver hemorrhage (5) Sepsis (6) Hypothyroidism (7) Polymyalgia rheumatica Symptom Scale: (1) Poor appetite 0-10 Scale: Unable to quantify (2) Abdominal pain 0-10 Scale: Unable to quantify Pertinent Non-Medical Issues Psychosocial:He was born and brought up in [place] where he completed high school and 2 years of college. Currently lives with his of 21 years. He has 3 children by his prior marriage, one boy and 2 girls all live in [place]. 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 They moved to [place] in August as his physician thought that a climate change might help his severe polymyalgia rheumatica, however he has seen no improvement so is planning to move back to [place], or [place] where his stepchildren live. Spiritual: Spirituality is important to him. He identifies as a Yarsani and would appreciate core inspector visits. Legal: No previous living will or advanced directives completed, however had been discussed with his . Ethical issues impacting care: He is a little confused intermittently, however his is available and willing to act as decision-maker. . Important Contacts : Sandra Rios , cell . . 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 The pathology is pending and at this time no cancer has been diagnosed. He does have pancreatitis and sepsis which placed him at an increased risk of complications. He also suffered a liver laceration secondary to adhesions and a biliary drain placement requiring multiple blood transfusions. He is still having abdominal pain, elevated liver enzymes, increasing bilirubin and is jaundiced. He is now becoming confused. He is at risk of continued decline and recurrent hospitalizations. . Code Status: Full Code Plan PLAN: Legal decision maker: He is a little confused intermittently, so may be able to participate in his decision making, however his is available and willing to act as decision-maker. Goals: Aggressive. CODE STATUS: FULL CODE SYMPTOMS: * Abdominal pain: Remains with right upper quadrant pain, reproducible to palpation, tenderness, with intermittent sharp pains. Biliary drain is patent. Oxycodone is scheduled 5 mg every 8 hours with morphine 1 mg, IV every 4 hours as needed for breakthrough pain or [place] 5/325 mg 1-2 tab every 4 hours as needed for pain. * Poor appetite: Multifactorial to include abdominal pain, pancreatitis, intermittent nausea, worsening with food intake is compounding poor PO intake. He is on a mechanical soft, nectar thick, 2 g sodium diet with calorie count. He refused dinner last night and ate minimally at breakfast. May benefit from Marinol. SUMMARY: This is an 82-year-old male presents with elevated liver function tests, elevated bilirubin, abdominal pain and confusion. He has required placement of a biliary drain and suffered the complication of a liver laceration secondary to adhesions, causing hemoperitoneum and requiring exploratory laparotomy and surgical repair. 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 He is at risk for recurrent hospitalizations and continued decline. Palliative care will continue to follow the patient during hospital course as condition evolves, to assist patient/decision-maker with understanding of their medical conditions, weighing benefits/burdens of treatment options, for clarification of goals of treatment. Additionally will assist with any symptoms of palliative concern. . Time Spent Time Periods: 10:30-11:10 Total Floor Time (mins): 75 Face to Face Time (mins): 40 >50% Counseling/Coord of Care: Yes Thank you for the opportunity to participate in the care of Mr. Rios. Attestation To help prompt me to consider important information that might be impacting today's encounter and assessment, information from prior notes written by myself or my colleagues may have been "brought forward" into today's note. My signature on this note, however, is an attestation that I personally performed the exam, history, and/or decision-making noted today, and, unless otherwise indicated, the interactions with patient, family, and staff as well as the review of records all occurred today. I also attest that the listed assessment and stated plan reflect my best clinical judgment today based on the combination of historical information, prior notes, and today's exam/ interactions. When time spent is documented, it refers only to time spent today by the signer, or if indicated, combined time spent today by collaborating physician/nurse practitioner. . Nona Brown Dec 22, 2017 10:55
--- NOTE | 2017-12-22 11:52 | HHI.GIFU ---
Subjective Remarks resting in bed in NAD. Per RN he is tachypneic today and this is his norm. He is refusing medications and refusing speech therapy. (Kim Apodaca) Objective Vitals I&O Vital Signs Date Time Temp Pulse Resp B/P (MAP) Pulse Ox O2 Delivery O2 Flow Rate FiO2 12/22/17 11:00 97.3 82 24 130/76 (94) 98 12/22/17 11:00 96 12/22/17 10:00 94 12/22/17 10:00 28 12/22/17 09:58 Nasal Cannula 2.00 12/22/17 09:15 96 12/22/17 07:35 97 Nasal Cannula 3.00 12/22/17 07:35 97.5 94 28 110/71 (84) 97 12/22/17 06:00 92 12/22/17 05:00 92 12/22/17 04:00 95 18 124/69 (87) 97 12/22/17 04:00 96 12/22/17 03:00 94 12/22/17 02:00 100 12/22/17 01:00 96 12/22/17 00:00 90 12/21/17 23:00 95 20 164/96 (118) 97 12/21/17 23:00 100 12/21/17 22:00 90 12/21/17 21:00 84 12/21/17 20:24 97 Nasal Cannula 2.00 12/21/17 20:00 82 12/21/17 19:00 84 12/21/17 19:00 97 Nasal Cannula 2.00 12/21/17 19:00 85 20 148/75 (99) 97 12/21/17 18:05 86 12/21/17 17:00 78 12/21/17 16:00 82 12/21/17 15:16 97.3 77 19 149/82 (104) 98 12/21/17 15:00 79 12/21/17 14:00 80 12/21/17 13:00 78 12/21/17 12:00 72 I/O 12/21/17 12/21/17 12/21/17 12/22/17 12/22/17 12/22/17 07:00 15:00 23:00 07:00 15:00 23:00 Intake Total 1275 ml 290 ml 665 ml 290 ml Output Total 800 ml 1200 ml 850 ml Balance 1275 ml -510 ml -535 ml -560 ml Intake Oral 240 ml 360 ml 240 ml IV Total 50 ml 305 ml 50 ml Packed Cells 400 ml Blood Product IV Normal Saline Flush 875 ml Output Urine Total 800 ml 900 ml 600 ml Drainage Total 300 ml 250 ml # Voids 2 4 # Bowel Movements 0 0 Laboratory Laboratory Tests Test 12/21/17 20:09 Prothrombin Time 18.1 Prothromb Time International Ratio 1.8 Activated Partial Thromboplast Time 28.2 Date/Time Source Procedure Growth Status 12/15/17 19:58 Blood Peripheral Aerobic Blood Culture - Final NO GROWTH IN 5 DAYS Complete 12/15/17 19:58 Blood Peripheral Anaerobic Blood Culture - Final NO GROWTH IN 5 DAYS Complete 12/04/17 00:42 Fluid Bile Fluid Gram Stain - Final Complete 12/04/17 00:42 Body Fluid Culture - Final Marielle Albicans Complete 12/20/17 05:13 Stool Stool Stool Occult Blood (RADHA) - Final HEMOCCULT POSITIVE Complete 12/16/17 12:53 Urine Clean Catch Legionella Antigen - Final PRESUMPTIVE NEGATIVE FOR LEGIONELLA P... Complete 12/16/17 12:53 Urine Clean Catch Streptococcus pneumoniae Antigen (M - Final PRESUMPTIVE NEGATIVE FOR STREPTOCOCCU... Complete 12/14/17 00:30 Wound Abdomen Gram Stain - Final Complete 12/14/17 00:30 Wound Abdomen Wound Culture - Final NO GROWTH IN 72 HRS.--AEROBICALLY OR ... Complete Imaging Last Impressions Chest X-Ray 12/21/17 0000 Signed Impressions: Service Date/Time: Thursday, December 21, 2017 07:43 - CONCLUSION: Moderate CHF progress. K. Gurvinder Jean MD Celiac/Hepatic Arteriogram 12/20/17 0000 Signed Impressions: Service Date/Time: Wednesday, December 20, 2017 15:32 - CONCLUSION: 1. 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 Followup angiography demonstrated complete exclusion of the pseudoaneurysm and fistula with normal appearing flow within the hepatic branches. Lion Leahy MD Abdomen/Pelvis CT 12/19/17 0000 Signed Impressions: Service Date/Time: Tuesday, December 19, 2017 20:07 - CONCLUSION: 1. Progression in the extensive acute pancreatitis. No hemorrhage or infarction of the pancreas observed. 2. 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 This is new from the prior study. 3. Splenic vein remains patent. 4. Stable small bilateral pleural effusions and associated atelectasis. Jung Lundberg Jr., MD Biopsy X-Ray 12/18/17 0000 Signed Impressions: Service Date/Time: December 14:47 - CONCLUSION: Uncomplicated fluoroscopic guided biliary forceps biopsy and internal/external drainage catheter exchange as described in detail above Landry Mitchell MD Cholangiogram 12/16/17 0000 Signed Impressions: Service Date/Time: Saturday, December 16, 2017 17:07 - CONCLUSION: There is no drainage catheter complication. The patient does not have significant accumulation of abdominal ascites along the liver surface to potentially exacerbate fluid leakage along the tube tract. The fluid drainage appears to be benign serosanguinous. Dressing changes p.r.n. recommended. Landry Mitchell MD Abdomen Ultrasound 12/14/17 0000 Signed Impressions: Service Date/Time: Thursday, December 14, 2017 09:01 - CONCLUSION: Limited study due to bandages on the abdomen and bowel gas. Focal fatty infiltration right lobe of liver again seen. Gallbladder appears collapsed. Minimal ascites. Jerry Laureano MD Abdomen X-Ray 12/13/17 0000 Signed Impressions: Service Date/Time: Wednesday, December 13, 2017 18:55 - CONCLUSION: Nothing acute demonstrated. Nonobstructive bowel gas pattern and no free air. Evidence of right upper quadrant surgery and a internal/external biliary drainage catheter again noted. Landyr Ryan MD Head CT 12/09/17 0000 Signed Impressions: Service Date/Time: Saturday, December 09, 2017 20:02 - CONCLUSION: Negative noncontrast head CT. Landry Ryan MD Bile Duct Drainage 12/03/17 0000 Signed Impressions: Service Date/Time: Sunday, December 03, 2017 14:10 - CONCLUSION: Uncomplicated biliary stent placement as above. Bj Hurtado MD Cholangiopancreatography MRI 12/02/17 0000 Signed Impressions: Service Date/Time: Saturday, December 02, 2017 08:17 - CONCLUSION: 1. Significant dilatation of the intrahepatic ducts ending at the confluence and possibility of stricture at this site or a Klatskin's tumor which is not visualized should be entertained. 2. Wedge-shaped focal fat right hepatic lobe. Luz Jean MD Physical Exam HEENT: Normocephalic; atraumatic, eyes icteric CHEST: wheezes CARDIAC: RRR ABDOMEN: Soft and mild distention, nontender, bowel sounds active. Biliary drain EXTREMITIES: No clubbing, cyanosis, or edema. SKIN: + jaundice. Dry HEDDLER TIER: awake, relatively nonverbal (Kim Apodaca HAND TACKER) Assessment and Plan Plan Initial W/U- abd pain, elevated LFTs, elevated ca 19-9 - 85, poss malignancy Ct done showed intrahepatic biliary duct dilatation without extrahepatic biliary duct dilatation concern for a lesion at the intrahepatic biliary duct or CBD level, MRCP showed Significant dilatation of the intrahepatic ducts ending at the confluence and possibility of stricture at this site or a Klatskin's tumor which is not visualized should be entertained s/p placement biliary drain by IR. Capsular tear liver, s/p ex lap and control liver laceration bleed Anemia, 7.3 today , asymptomatic ,persist status post procedure yesterday, need to continue to monitor hemoglobin especially after procedure CT 12/11/17, Pancreatits with inflammatory change persists. Drain good placement elevated LFTs ([place], AMA, ASMA, ceruloplasmin, alpha-1 antitrypsin, celiac panel) , Hepatitis panel negative LFTs continue elevated, mild rise. 167/[address] 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 Complete occlusion of the aneurism on follow up angio. hgb today stable, LFTs reman high 12/22/17 - pt seems less oriented today. refusing meds, speech therapy. Liver w /u up has been unremarkable. bile duct biopsy still pending, palliative care now following, awaiting bx results. today labs pending Plan: - await today's labs - await Klatzkin tumor bx - await palliative care follow up - Monitor biliary drain output - Monitor labs hh - Transfuse as needed - will need liver bx, timing TBD - poor prognosis - Supportive care - Further recommendations to follow based on results of above Pt has been seen and examined by myself and Dr. Duvall and this note has been written on his behalf (Kim Apodaca) Physician Comments Seen and examined, worsening in clinical condition today. Abdomen very tender, LFTs and Wbc still elevated. Chart reviewed, discussed with dr Jordan and nurse. Recommend stat CT abd/pelvis, surgical consult, consult clinical informatics spec. Transfer to [facility]. Reconsult IR to evaluate for possible drainage of the other intrahepatic duct. ? Lfts not improving. ? cholangitis. Broad spectrum antibiotics. Discussed with family in the room. (Luiz Duvall MD) Kim Apodaca Dec 22, 2017 11:52 Luiz Duvall MD Dec 22, 2017 17:40
[2017-12-22] MEDS: ALBUMIN 25% INJ 50 ML IV SCH ×2 (12:00→23:41)
[2017-12-22] MEDS ORDERED: methylPREDNISolone SOD SUCC 125 MG/2 ML VIAL ONE (12:02)
[2017-12-22] MEDS: FUROSEMIDE 20 MG/2 ML VIAL IV PUSH SCH (12:13)
[2017-12-22] MEDS: LEVOFLOXACIN 750 MG PREMIX INJ 150 ML IV SCH (12:14)
[2017-12-22] MEDS: methylPREDNISolone SOD SUCC 125 MG/2 ML VIAL IV PUSH SCH (12:15)
[2017-12-22] MEDS ORDERED: MORPHINE SULFATE 2 MG/ML INJ IM ONE (12:15)
--- NOTE | 2017-12-22 12:16 | HHI.FPPN ---
Subjective Remarks Pt seen and examined this morning. Pt has been afebrile with intermittently increased respiratory rate in the 30s. Pts present at bedside, she reports that his appetite has been poor. Pt endorses feeling short of breath, he reports feeing comfortable otherwise. He denies chest pain, abdominal pain. Pts nurse reports that he has been refusing some of his medications. Update: Pt seen and examined at 13:40. Lung exam significantly improved. Good air movement, mild expiratory wheezing in left lower lung field only. Pt able to follow commands and move hands and feet. (Sunny Boucher MD R3) Objective Vitals Vital Signs Date Time Temp Pulse Resp B/P (MAP) Pulse Ox O2 Delivery O2 Flow Rate FiO2 12/22/17 11:00 97.3 82 24 130/76 (94) 98 12/22/17 11:00 96 12/22/17 10:00 94 12/22/17 10:00 28 12/22/17 09:58 Nasal Cannula 2.00 12/22/17 09:15 96 12/22/17 07:35 97 Nasal Cannula 3.00 12/22/17 07:35 97.5 94 28 110/71 (84) 97 12/22/17 06:00 92 12/22/17 05:00 92 12/22/17 04:00 95 18 124/69 (87) 97 12/22/17 04:00 96 12/22/17 03:00 94 12/22/17 02:00 100 12/22/17 01:00 96 12/22/17 00:00 90 12/21/17 23:00 95 20 164/96 (118) 97 12/21/17 23:00 100 12/21/17 22:00 90 12/21/17 21:00 84 12/21/17 20:24 97 Nasal Cannula 2.00 12/21/17 20:00 82 12/21/17 19:00 84 12/21/17 19:00 97 Nasal Cannula 2.00 12/21/17 19:00 85 20 148/75 (99) 97 12/21/17 18:05 86 12/21/17 17:00 78 12/21/17 16:00 82 12/21/17 15:16 97.3 77 19 149/82 (104) 98 12/21/17 15:00 79 12/21/17 14:00 80 1/21/18 13:00 78 I/O 12/21/17 12/21/17 12/21/17 12/22/17 12/22/17 12/22/17 07:00 15:00 23:00 07:00 15:00 23:00 Intake Total 1275 ml 290 ml 665 ml 290 ml Output Total 800 ml 1200 ml 850 ml Balance 1275 ml -510 ml -535 ml -560 ml Intake Oral 240 ml 360 ml 240 ml IV Total 50 ml 305 ml 50 ml Packed Cells 400 ml Blood Product IV Normal Saline Flush 875 ml Output Urine Total 800 ml 900 ml 600 ml Drainage Total 300 ml 250 ml # Voids 2 4 # Bowel Movements 0 0 (Sunny Boucher MD R3) Result Diagram: 12/21/1740 12/21/17 0740 Objective Remarks GENERAL: Ill-appearing, mildly jaundiced, lying in bed, eyes open SKIN: No lesions. Mild jaundice to upper chest. HEAD: Normocephalic. Atraumatic. EYES: Mild scleral icterus. No injection or drainage. CARDIOVASCULAR: Regular rate and rhythm without murmur, gallop, or rub. RESPIRATORY: Diffuse expiratory wheezing anteriorly, poor effort. Supraclavicular retractions. GASTROINTESTINAL: Abdomen obese, mildly tender to palpation. No guarding. BS hypoactive. No guarding. Transverse laparotomy scar over RUQ closed with steri- strips, c/d/i with no induration or fluctuance. Biliary drain in place on right lateral abdomen with small amount of green bilious drainage inside the drain bag. EXTREMITIES: No cyanosis. SCDs in place. NEUROLOGICAL: Pt not interactive with examiner, unable to assess. 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 Following IR biliary stent and drainage on 12/03, pt found to have liver laceration and hemorrhage causing hemoperitoneum. Exploratory laparotomy performed emergently on 12/04 requiring 6u PRBCs, 1u FFP and 1u Cryo with EBL 2L. Following surgery, pt was sent to ICU for management and showed improvement but still with persistently elevated WBC. He was found to have pancreatitis on CT scan but lipase and amylase were not elevated. His biliary drain was investigated on 12/16/16 due to leaking and was found to be working properly. 12/19: Given 1uPRBCs from blood loss anemia 12/17 w/Hgb 6.8 and H/H improved to 8.1/24.5. Today H/H 7.3/22.7; will do f/u H/H 1PM and will transfuse 1uPRBCs if <7.0. BP elevated to 161/93, confused overnight and incontinent of urine. Getting scheduled oxycodone q8h for pain control now and pt w/o complaint for pain. IR took biopsies of stricture and mass surrounding stricture yesterday and we are awaiting results to consider further workup. Pt appears to be improved wrt RR but still using accessory muscles of neck; is not clammy today; and is resting more comfortably. CXR shows some improvement in PNA. Continues to be afebrile and WBC reduced to 20.6 today. Vanc trough 13.7; continue Zosyn, Vanc, levaquin and diflucan; ID and GI consulted. 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 Discussed with general surgeon Winston who suspects that the fluid pooling is a small bleed from the catheter exchange. He will discuss with IR on Friday to go over all scans/ tests and come up with a plan. Also spoke with IR Dr. Leahy, who states that he would evaluate the scans and will make a decision on the next steps. 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 Pt received 1uPRBCs early this morning with follow-up H/H indicating pt is hemodynamically stable at 8.7/26.1. Morning labs indicate rising H/H at 9.0/ 27.1. Hypernatremia resolved at 142 this morning. LFTs and Tbili still trending upward, likely 2/2 blood loss--will look to trend down hopefully from here. Pt slight jaundiced as a result w/mild scleral icterus. CXR this morning showing moderate CHF progression--adding one time Lasix 20mg IV to scheduled dosage due to having received blood products, reduce cardiac afterload, and reduce WOB. We had nursing flush his biliary drain which appeared to be clogged with dark fluid ; once flushed, began draining light green bilious fluid. 12/22: Pt with increase work of breathing and wheezing, improved on reexamination after steroids and Lasix. His reports that he has been asking to go home. His nurse reports that he has been refusing some medications. Pulmonology consulted for further recommendations. Seen with Dr Valero and Dr Landry Discharge Planning Anticipate discharge once patient is clinically stable, time frame unclear. (Sunny Boucher MD R3) Attending Attestation Patient seen and examined. Case reviewed and discussed Agree with plan of care as discussed with me and documented in the resident note. Will give additional Lasix, obtain cbc, increase steroids. at the bedside. Discussed if no improvement with above measures, low threshold to transfer to [facility]. (Elena Landry MD) Problem List: (1) Leukocytosis ICD Codes: D72.829 - Elevated white blood cell count, unspecified Status: Acute Plan: Originally considered a Leukemoid rxn with WBCs in 35-50 range; however, Heme believed to be infection and since broadening of abx, WBC has previously decreased to 20.6. Today WBC count significantly elevated to 60.6. Will repeat CBC to confirm. -Transition to PO Abx when WBC improves per ID -Wound cx of biliary drain fluid NGTD Heme/onc consult reveals likely due to infection -B12 high 2000 /folate wnl (2) Anemia ICD Codes: D64.9 - Anemia, unspecified Plan: Stable, no active bleeding Pt status post 1 unit of packed RBCs on 12/21 -Hgb 8.8 on 12/22 -->monitor with AM CBC -Plan to transfuse if Hgb <7.0 (3) Liver hemorrhage ICD Codes: K76.89 - Other specified diseases of liver Status: Acute Plan: -S/P ex lap on 12/04 for liver laceration; continues to have blood loss with PLTs 180 from around biliary drain -CT abdomen/pelvis performed on 12/19 shows 2 cm fluid collection below biliary drain - discussed with IR and general surgery. Plan to follow. -Continue metoprolol to 37.5 mg by mouth every 8 hours in order to maintain SBP less than 140 BPM -Continue pain control -Pt received 1uPRBCs following IR guided embolization of 1cm pseudoaneurysm with AVF on 12/20, see plan above for anemia. -Continue to monitor with CBC in morning labs; will transfuse 1uPRBCs if Hgb < 7.0 (4) Pneumonia ICD Codes: J18.9 - Pneumonia, unspecified organism Plan: Pneumonia vs atelectasis on CXR. Afebrile, respiratory rate intermittently increased. Continue antibiotics as below. -Pulmonology consulted for additional recommendations regarding management, appreciate recommendations. -Will increase steroids: Solumedrol 60mg IV BID -Duonebs q4h scheduled while awake -Continue albuterol nebs q2h PRN -Pulmicort 0.5mg nebs -Continue Zosyn 3.375 g IV every 6 hours (since 12/01/17) and Levaquin 750 mg every 24 hours IV (12/15-) and Vancomycin 1,750mg IV q24h (12/15-)per ID -Continue fluconazole 400mg IV q24h - (since 12/06/17) -Continue Vancomycin 2g IV daily, to be adjusted by pharmacy (12/19- ) -Continue Levaquin 750mg IV Daily (12/15-) Imaging: Mild hazy density in the right lung and left base on 12/16/16 PA/lat chest x-ray --> moderate CHF progression on CXR 12/21/17 Stable pulmonary infiltrates on 12/19 (5) Elevated liver enzymes ICD Codes: R74.8 - Abnormal levels of other serum enzymes Plan: Concern for malignancy Bile duct biopsy preformed, Pathology pending GI consulted, appreciate recommendations Additional workup per GI, so far unremarkable Pt status post biliary drain placed by IR (6) Abdominal pain ICD Codes: R10.9 - Unspecified abdominal pain Status: Acute Plan: Stable -12/22: Abdominal pain stable -12/21: pt with no complaint of pain this morning. BP elevated to 150/89-- Metoprolol 37.5mg as above -12/20: BP intermittently elevated to 156/77, patient tender to palpation of abdomen. Catheter exchange and biopsy performed on 12/18. -12/19: BP elevated overnight to 169/93 but pt not complaining of abdominal pain ; consider hypovolemia/anemia for source of BP elevation -12/18: Cholangiogram and biopsies of stricture and mass outside the stricture; await pathology results; scheduled oxycodone q8h started due to elevated BPs. -IR re-assessed biliary drain on 12/16/16 and it was determined to be working properly; cholangiogram and -GI awaiting results of tumor bx before proceeding further * No plan for EUS until resolution of pancreatitis Se[place] and morphine IV as needed for pain CT findings as below MRCP findings as below Imaging: CT of the abdomen and pelvis: 12/19/19: 1. Progression in the extensive acute pancreatitis. No hemorrhage or infarction of the pancreas observed. 2. 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 This is new from the prior study. CT of the abdomen and pelvis: 12/04/17: Moderate volume hemoperitoneum. Interval placement of a right internal/external earlier a drainage catheter. Drain good position. CT of the abdomen and pelvis: 12/11/17: 1. Interval development of diffuse pancreatitis. Diffuse inflammatory changes surrounding the pancreas. 2. Previously noted fluid adjacent to the liver has resolved. 3. Internal/external biliary drainage catheter in place which appears to be in good position and unchanged in position compared to the prior study. 4. Small amount of free fluid deep in the pelvis. 5. Small bilateral pleural effusions. MRCP: 12/02/17: Significant dilation of the intrahepatic ducts ending in the confluence and possibility of stricture at the site or a lack since tumor which is not visualized should be entertained. Wedge-shaped focal fat right hepatic lobe (7) Hypothyroidism ICD Codes: E03.9 - Hypothyroidism, unspecified Status: Chronic Plan: Continue home Synthroid 100 mcg daily (8) Polymyalgia rheumatica ICD Codes: M35.3 - Polymyalgia rheumatica Status: Chronic Plan: Holding prednisone 5 mg daily, see pneumonia above for current steroid dose. (9) BPH (benign prostatic hyperplasia) ICD Codes: N40.0 - Benign prostatic hyperplasia without lower urinary tract symptoms Status: Chronic Plan: -Continue home finasteride (10) FEN/PPX Plan: Fluids: holding fluids due to being overloaded, diuresis with lasix 20mg IV daily, encourage by mouth intake Electrolytes: Monitor and replace PRN Nutrition: Regular diet: mechanical soft, nectar thick DVT: SCDs, holding pharmacologic prophylaxis due to acute bleed (Sunny Boucher MD R3) Problem Qualifiers (1) Leukocytosis: Qualified Codes: D72.829 - Elevated white blood cell count, unspecified (2) Abdominal pain: Qualified Codes: R10.11 - Right upper quadrant pain (3) Hypothyroidism: Qualified Codes: E03.9 - Hypothyroidism, unspecified (4) BPH (benign prostatic hyperplasia): Qualified Codes: N40.0 - Benign prostatic hyperplasia without lower urinary tract symptoms Sunny Boucher MD R3 Dec 22, 2017 12:16 Elena Landry MD Dec 23, 2017 17:04
[2017-12-22 12:49] LABS: HEMATOCRIT 26.8 % (39.0-51.0); HEMOGLOBIN 8.8 GM/DL (13.0-17.0); MEAN CELL VOLUME 93.2 FL (80.0-100.0); MEAN CORPUSCULAR HEMOGLOBIN 30.5 PG (27.0-34.0); MEAN CORPUSCULAR HGB CONC 32.7 % (32.0-36.0); MEAN PLATELET VOLUME 10.4 FL (7.0-11.0); PLATELET COUNT 175 TH/MM3 (150-450); RED BLOOD COUNT 2.88 MIL/MM3 (4.50-5.90); RED CELL DISTRIBUTION WIDTH 18.4 % (11.6-17.2); WHITE BLOOD COUNT 60.6 TH/MM3 (4.0-11.0)
[2017-12-22] MEDS: ACETAMINOPHEN/HYDROcodone 325 MG/10 MG TAB PO PRN (13:24)
[2017-12-22 13:30] LABS: ALBUMIN 2.7 GM/DL (3.4-5.0); AST (GOT) 173 U/L (15-37); BICARBONATE 38.5 MEQ/L (21.0-32.0); BLOOD UREA NITROGEN 27 MG/DL (7-18); CALCIUM 10.1 MG/DL (8.5-10.1); CHLORIDE 97 MEQ/L (98-107); CREATININE 1.28 MG/DL (0.60-1.30); GLOMERULAR FILTRATION RATE 54 ML/MIN (>89); GLUCOSE,RANDOM 188 MG/DL (74-106); SODIUM (NA) 142 MEQ/L (136-145)
[2017-12-22 13:33] LABS: ALKALINE PHOSPHATASE 190 U/L (45-117); ALT (GPT) 199 U/L (12-78); TOTAL BILIRUBIN ADULT 9.7 MG/DL (0.2-1.0); TOTAL PROTEIN 5.5 GM/DL (6.4-8.2)
[2017-12-22 13:47] LABS: BANDS 4 % (0-6); LYMPHOCYTES 3 % (9-44); MONOCYTES 5 % (0-8); NEUTROPHIL # MANUAL DIFF 55.8 TH/MM3 (1.8-7.7); POLYS (SEG NEUTROPHILS) 88 % (16-70)
[2017-12-22 13:51] LABS: POLYCHROMASIA 2.1 % (0.0-1.9)
[2017-12-22 13:52] LABS: TARGET CELLS 1+ (NORMAL); TOXIC GRANULATION 1+ (NORMAL)
[2017-12-22 15:42] LABS: HEMATOCRIT 23.9 % (39.0-51.0); HEMOGLOBIN 8.1 GM/DL (13.0-17.0); MEAN CELL VOLUME 92.1 FL (80.0-100.0); MEAN CORPUSCULAR HEMOGLOBIN 31.3 PG (27.0-34.0); MEAN PLATELET VOLUME 10.8 FL (7.0-11.0); PLATELET COUNT 162 TH/MM3 (150-450); RED BLOOD COUNT 2.59 MIL/MM3 (4.50-5.90); RED CELL DISTRIBUTION WIDTH 18.5 % (11.6-17.2); WHITE BLOOD COUNT 60.5 TH/MM3 (4.0-11.0)
[2017-12-22] MEDS ORDERED: FUROSEMIDE 20 MG/2 ML VIAL IV PUSH ONE (16:00)
[2017-12-22] MEDS: RESP: ALBUTEROL 2.5 MG/IPRATROPIUM 0.5 MG NEB (SCH) NEB ×2 (16:11→21:13)
[2017-12-22] MEDS ORDERED: PHARMACY ORDERED LAB ONE (16:45)
[2017-12-22 16:48] LABS: BANDS 4 % (0-6); CORRECTED NUCLEATED RBC 1 /100 WBC (0-0); LYMPHOCYTES 2 % (9-44); MONOCYTES 2 % (0-8); NEUTROPHIL # MANUAL DIFF 58.1 TH/MM3 (1.8-7.7); NUCLEATED RED BLOOD CELL 1 (0-0); POLYS (SEG NEUTROPHILS) 92 % (16-70)
[2017-12-22 16:51] LABS: TARGET CELLS 1+ (NORMAL)
[2017-12-22] MEDS: FLUCONAZOLE 400 MG PREMIX BAG 200 ML IV SCH (17:00)
--- NOTE | 2017-12-22 18:07 | HHI.IDPN ---
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 Complete occlusion of the aneurism on follow up angio. Full dictated report to follow by Dr Leahy on Dec 20, 2017 15:19 On 2 L of NC O2 Antibiotics zosyn fluconazol Past Medical History Allergies: Coded Allergies: No Known Allergies (Unverified Allergy, Unknown, 12/01/17) Objective . Vital Signs Date Time Temp Pulse Resp B/P (MAP) Pulse Ox O2 Delivery O2 Flow Rate FiO2 12/22/17 16:00 84 12/22/17 15:00 96 12/22/17 15:00 99.1 84 26 115/76 (89) 99 12/22/17 12:00 90 12/22/17 11:00 97.3 82 24 130/76 (94) 98 12/22/17 11:00 96 12/22/17 10:00 94 12/22/17 10:00 28 12/22/17 09:58 Nasal Cannula 2.00 12/22/17 09:15 96 12/22/17 07:35 97 Nasal Cannula 3.00 12/22/17 07:35 97.5 94 28 110/71 (84) 97 12/22/17 06:00 92 12/22/17 05:00 92 12/22/17 04:00 95 18 124/69 (87) 97 12/22/17 04:00 96 12/22/17 03:00 94 12/22/17 02:00 100 12/22/17 01:00 96 12/22/17 00:00 90 12/21/17 23:00 95 20 164/96 (118) 97 12/21/17 23:00 100 12/21/17 22:00 90 12/21/17 21:00 84 12/21/17 20:24 97 Nasal Cannula 2.00 12/21/17 20:00 82 12/21/17 19:00 84 12/21/17 19:00 97 Nasal Cannula 2.00 12/21/17 19:00 85 20 148/75 (99) 97 12/21/17 18:05 86 12/22/17 12/22/17 12/23/17 15:00 23:00 07:00 Output Total 200 ml Balance -200 ml Output Urine Total 200 ml Bladder Scan Volume Amount 137 ml . Laboratory Tests Test 12/20/17 18:52 12/21/17 05:17 12/21/17 07:40 12/22/17 12:10 Hemoglobin 6.8 GM/DL 8.7 GM/DL 9.0 GM/DL 8.8 GM/DL Hematocrit 20.3 % 26.1 % 27.3 % 26.8 % White Blood Count 29.9 TH/MM3 60.6 TH/MM3 Red Blood Count 2.98 MIL/MM3 2.88 MIL/MM3 Mean Corpuscular Volume 91.8 FL 93.2 FL Mean Corpuscular Hemoglobin 30.4 PG 30.5 PG Mean Corpuscular Hemoglobin Concent 33.1 % 32.7 % Red Cell Distribution Width 19.2 % 18.4 % Platelet Count 183 TH/MM3 175 TH/MM3 Mean Platelet Volume 9.8 FL 10.4 FL Neutrophils (%) (Auto) 94.7 % Lymphocytes (%) (Auto) 1.1 % Monocytes (%) (Auto) 4.0 % Eosinophils (%) (Auto) 0.0 % Basophils (%) (Auto) 0.2 % Neutrophils # (Auto) 28.3 TH/MM3 Lymphocytes # (Auto) 0.3 TH/MM3 Monocytes # (Auto) 1.2 TH/MM3 Eosinophils # (Auto) 0.0 TH/MM3 Basophils # (Auto) 0.1 TH/MM3 CBC Comment AUTO DIFF AUTO DIFF Differential Total Cells Counted 100 100 Neutrophils % (Manual) 95 % 88 % Monocytes % 4 % 5 % Neutrophils # (Manual) 28.7 TH/MM3 55.8 TH/MM3 Myelocytes 1 % Differential Comment FINAL DIFF MANUAL FINAL DIFF MANUAL Hypersegmented Polys 1+ Platelet Estimate NORMAL NORMAL Platelet Morphology Comment NORMAL NORMAL Target Cells 1+ 1+ Stomatocytes 1+ Band Neutrophils % 4 % Lymphocytes % 3 % Toxic Granulation 1+ Polychromasia 2.1 % Test 12/22/17 14:24 White Blood Count 60.5 TH/MM3 Red Blood Count 2.59 MIL/MM3 Hemoglobin 8.1 GM/DL Hematocrit 23.9 % Mean Corpuscular Volume 92.1 FL Mean Corpuscular Hemoglobin 31.3 PG Mean Corpuscular Hemoglobin Concent 34.0 % Red Cell Distribution Width 18.5 % Platelet Count 162 TH/MM3 Mean Platelet Volume 10.8 FL CBC Comment AUTO DIFF Differential Total Cells Counted 100 Neutrophils % (Manual) 92 % Band Neutrophils % 4 % Lymphocytes % 2 % Monocytes % 2 % Neutrophils # (Manual) 58.1 TH/MM3 Nucleated Red Blood Cells 1 /100 WBC Differential Comment FINAL DIFF MANUAL Platelet Estimate NORMAL Platelet Morphology Comment NORMAL Polychromasia 2.0 % Target Cells 1+ Laboratory Tests Test 12/21/17 07:40 12/22/17 11:50 12/22/17 13:38 Blood Urea Nitrogen 23 MG/DL 27 MG/DL Creatinine 0.74 MG/DL 1.28 MG/DL Random Glucose 143 MG/DL 188 MG/DL Total Protein 5.5 GM/DL 5.5 GM/DL Albumin 2.8 GM/DL 2.7 GM/DL Calcium Level 9.5 MG/DL 10.1 MG/DL Alkaline Phosphatase 207 U/L 190 U/L Aspartate Amino Transf (AST/SGOT) 170 U/L 173 U/L Alanine Aminotransferase (ALT/SGPT) 197 U/L 199 U/L Total Bilirubin 8.8 MG/DL 9.7 MG/DL Sodium Level 142 MEQ/L 142 MEQ/L Potassium Level 3.7 MEQ/L 3.8 MEQ/L Chloride Level 101 MEQ/L 97 MEQ/L Carbon Dioxide Level 38.0 MEQ/L 38.5 MEQ/L Anion Gap 3 MEQ/L 7 MEQ/L Estimat Glomerular Filtration Rate 102 ML/MIN 54 ML/MIN Ammonia 17 MCMOL/L Microbiology Date/Time Source Procedure Growth Status 12/20/17 05:13 Stool Stool Stool Occult Blood (RADHA) - Final HEMOCCULT POSITIVE Complete Imaging Last Impressions Chest X-Ray 12/21/17 0000 Signed Impressions: Service Date/Time: Thursday, December 21, 2017 07:43 - CONCLUSION: Moderate CHF progress. K. Gurvinder Jean MD Celiac/Hepatic Arteriogram 12/20/17 0000 Signed Impressions: Service Date/Time: Wednesday, December 20, 2017 15:32 - CONCLUSION: 1. 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 Followup angiography demonstrated complete exclusion of the pseudoaneurysm and fistula with normal appearing flow within the hepatic branches. Lion Leahy MD Abdomen/Pelvis CT 12/19/17 0000 Signed Impressions: Service Date/Time: Tuesday, December 19, 2017 20:07 - CONCLUSION: 1. Progression in the extensive acute pancreatitis. No hemorrhage or infarction of the pancreas observed. 2. 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 This is new from the prior study. 3. Splenic vein remains patent. 4. Stable small bilateral pleural effusions and associated atelectasis. Jung Lundberg Jr., MD Biopsy X-Ray 12/18/17 0000 Signed Impressions: Service Date/Time: December 14:47 - CONCLUSION: Uncomplicated fluoroscopic guided biliary forceps biopsy and internal/external drainage catheter exchange as described in detail above Landry Mitchell MD Cholangiogram 12/16/17 0000 Signed Impressions: Service Date/Time: Saturday, December 16, 2017 17:07 - CONCLUSION: There is no drainage catheter complication. The patient does not have significant accumulation of abdominal ascites along the liver surface to potentially exacerbate fluid leakage along the tube tract. The fluid drainage appears to be benign serosanguinous. Dressing changes p.r.n. recommended. Landry Mitchell MD Abdomen Ultrasound 12/14/17 0000 Signed Impressions: Service Date/Time: Thursday, December 14, 2017 09:01 - CONCLUSION: Limited study due to bandages on the abdomen and bowel gas. Focal fatty infiltration right lobe of liver again seen. Gallbladder appears collapsed. Minimal ascites. Jerry Laureano MD Abdomen X-Ray 12/13/17 0000 Signed Impressions: Service Date/Time: Wednesday, December 13, 2017 18:55 - CONCLUSION: Nothing acute demonstrated. Nonobstructive bowel gas pattern and no free air. Evidence of right upper quadrant surgery and a internal/external biliary drainage catheter again noted. Landry Ryan MD Head CT 12/09/17 0000 Signed Impressions: Service Date/Time: Saturday, December 09, 2017 20:02 - CONCLUSION: Negative noncontrast head CT. Landry Ryan MD Bile Duct Drainage 12/03/17 0000 Signed Impressions: Service Date/Time: Sunday, December 03, 2017 14:10 - CONCLUSION: Uncomplicated biliary stent placement as above. Bj Hurtado MD Cholangiopancreatography MRI 12/02/17 0000 Signed Impressions: Service Date/Time: Saturday, December 02, 2017 08:17 - CONCLUSION: 1. Significant dilatation of the intrahepatic ducts ending at the confluence and possibility of stricture at this site or a Klatskin's tumor which is not visualized should be entertained. 2. Wedge-shaped focal fat right hepatic lobe. K. Gurvinder Jean MD Physical Exam CONSTITUTIONAL/GENERAL: pt appears very sick Barely responds TUBES/LINES/DRAINS: SKIN: + quite jaundiced, no rashes, or lesions. Skin temperature appropriate. Not diaphoretic. HEENT; dry mucosae, intense icterus CARDIOVASCULAR: Regular rate and rhythm without murmurs, gallops, or rubs. No JVD. Peripheral pulses symmetric. RESPIRATORY/CHEST: Symmetric, unlabored respirations. Clear to auscultation. Breath sounds equal bilaterally. No wheezes, rales, or rhonchi. GASTROINTESTINAL: Abdomen somewhat tense with pronounced tenderness to palpation and marked distention Biliary drain in place with brown bile No hepato-splenomegaly, or palpable masses. ? guarding. GENITOURINARY: Without palpable bladder distension. Condom catheter in place with scarce amout of yellow urine. B;ladder scan with 137 cc MUSCULOSKELETAL: Extremities without clubbing, cyanosis, + edema. No joint tenderness or effusion noted. No calf tenderness. No mottling or clubbing. NEUROLOGICAL: very lethargic, minimal interaction; follows commands PSYCHIATRIC: unable to assess Assessment & Plan Remarks Acute hypovolemic shock following bleeding 2/2 complicaion of biliary stent placement sp emergent surgery - shock cliniocally resolved Obstructive jaundiced, ethiology not yet established sp biliary stent placement candidal cholangitis Sepsis Leukocytosis, leukemoid reaction - improving initilaly ; worse again Acute VDRF - resolved ARF- resolved Pt significant ly improved clinically Staph epi bacteriuria - doubt clin significance - not a trypical urinary pathogen Pancreatitis by CT finding , but lipase amylase wnl ? aspiration PNA Dysphagia, on thickened liquids now New issue: suspecting new sepsis with WBC of 60 K and renal insufficiency sp IR procedure 2 days ago Pancreatitis Critically ill Unstable Stat CT A/P, no contarst IV or PO Xsfer to ICU cont zosyn cont fluconazole @ 400 mg IV dc vancomycin dw Drs Sander, Landry Valero D. Miles Crossman, Alexandra A. MD Dec 22, 2017 18:06
--- NOTE | 2017-12-22 18:27 | HHI.FPPN ---
Addendum to progress note ADDENDUM Reason for addendum: Additonal documentation Additional information Pt was noted to have an acutely elevated WBC count of 60.6 this afternoon, confirmed with repeat CBC. Allergist Immunologist consulted, patient to be transferred to the unit for further monitoring. IV flagyl added. Spoke with ID. CT abdomen/pelvis ordered to evaluate for possible source of elevated WBC count. Spoke with GI regarding possibility of Liver biopsy. Pt currently with INR of 1.8 and cut off for this procedure is 1.5. Will plan for CT liver biopsy once patient is stable. Spoke with general surgery due and increased abdominal pain, with acutely elevated WBC count, concern for acute abdomen vs mesenteric ischemia vs intraabdominal infection vs others. Surgery advises there is no further surgical intervention warranted at this time that would change pts prognosis or improve current status. Surgery will continue to follow pt. Plan: 1. Pt to have STAT CT abdomen/pelvis, CXR 2. Transfer to ICU, commander internal affairs consulted -follow results of above -Stat ABG -IV flagyl added 3. Continue to monitor vitals 4. Will recheck Lipase due to concern for worsening pancreatitis 5. Will recheck AFP, CA 19 9, CEA Sunny Boucher MD R3 Dec 22, 2017 18:27
--- NOTE | 2017-12-22 19:01 | RADRPT ---
EXAM DATE/TIME: 12/22/2017 18:33 [facility] COMPARISON: CHEST SINGLE AP, December 21, 2017, 7:43. INDICATIONS : Pneumonia. MEDICAL HISTORY : Cardiovascular disease. SURGICAL HISTORY : None. ENCOUNTER: Initial ACUITY: 1 day PAIN SCORE: Non-responsive. LOCATION: Bilateral chest FINDINGS: Basilar airspace consolidation and small effusions with the heart size enlarged. Findings similar to December 21. Previous fusion cervical spine. CONCLUSION: 1. Basilar and perihilar airspace consolidation similar to December 21 with small effusions. Ronnie Donis MD on December 22, 2017 at 18:58 Board Certified Radiologist. This report was verified electronically.
--- NOTE | 2017-12-22 19:20 | RADRPT ---
EXAM DATE/TIME: 12/22/2017 18:17 [facility] COMPARISON: No previous studies available for comparison. INDICATIONS : Abdomen pain, jaundice,abdomen mass ORAL CONTRAST: No oral contrast ingested. RADIATION DOSE: 19.89 CTDIvol (mGy) MEDICAL HISTORY : Cardiovascular disease. Renal calculi. SURGICAL HISTORY : Hernia repair ENCOUNTER: Initial ACUITY: 1 day PAIN SCALE: 9/10 LOCATION: Abdomen TECHNIQUE: Volumetric scanning of the abdomen and pelvis was performed. Using automated exposure control and ad justment of the mA and/or kV according to patient size, radiation dose was kept as low as reasonably achievable to obtain optimal diagnostic quality images. DICOM format image data is available electro nically for review and comparison. FINDINGS: Moderate bilateral pleural effusions present with compressive atelectasis in the lungs similar to Robinson arevalo 19. Internal/external biliary drain present. Probable hepatic infarct near the dome. Pancreas and surrounding fluid are increasing in size by about 1 cm over last 3 days with no fluid ar ound the spleen and no free fluid in the pelvis. No free air. No air within the pancreatic bed to sug gest a necrotizing process at this point. Spleen is compressed by surrounding fluid which may be subcapsular as well. No morphologic change in adrenals or kidneys. No acute bony abnormalities. No free air. No evidence f or colitis. No bowel obstruction. CONCLUSION: 1. Slight worsening of pancreatitis with increasing diameter and new free fluid in the pelvis. No air within the pancreatic bed to suggest a necrotizing process at this point. 2. 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 3. Moderate bilateral pleural effusions. 4. No evidence for colitis. No bowel obstruction. Mild anasarca. Ronnie Donis MD on December 22, 2017 at 19:09 Board Certified Radiologist. This report was verified electronically.
[2017-12-22] MEDS ORDERED: CHLORHEXIDINE GLUCONATE 2 % 1 PACK (2 CLOTHS)(extra cloths) TOPICAL PRN (19:30)
[2017-12-22] MEDS ORDERED: MISCELLANEOUS PHARMACY INFORMATION XX PRN (20:45)
[2017-12-22] MEDS ORDERED: ASP: Necrotizing pancreatitis PRN (20:45)
[2017-12-22 20:54] LABS: HEMATOCRIT 23.7 % (39.0-51.0); HEMOGLOBIN 7.6 GM/DL (13.0-17.0)
[2017-12-22] MEDS: MEROPENEM INJ 1,000 MG in SODIUM CHLORIDE 0.9% INJ 100 ML IV SCH (21:00)
[2017-12-22] MEDS: metroNIDAZOLE 500 MG INJ 100 ML IV SCH (21:25)
--- NOTE | 2017-12-22 21:43 | PD.CONS ---
HPI Service Please delete the note that was started in error Consult Requested By Primary Care Physician Unknown History of Present Illness Please delete the note that was started in error Past Family Social History Allergies: Coded Allergies: No Known Allergies (Unverified Allergy, Unknown, 12/01/17) Physical Exam Vital Signs Vital Signs Date Time Temp Pulse Resp B/P (MAP) Pulse Ox O2 Delivery O2 Flow Rate FiO2 12/22/17 21:22 98 Nasal Cannula 4.00 12/22/17 17:00 96 12/22/17 16:00 84 12/22/17 15:00 96 12/22/17 15:00 99.1 84 26 115/76 (89) 99 12/22/17 12:00 90 12/22/17 11:00 97.3 82 24 130/76 (94) 98 12/22/17 11:00 96 12/22/17 10:00 94 12/22/17 10:00 28 12/22/17 09:58 Nasal Cannula 2.00 12/22/17 09:15 96 12/22/17 07:35 97 Nasal Cannula 3.00 12/22/17 07:35 97.5 94 28 110/71 (84) 97 12/22/17 06:00 92 12/22/17 05:00 92 12/22/17 04:00 95 18 124/69 (87) 97 12/22/17 04:00 96 12/22/17 03:00 94 12/22/17 02:00 100 12/22/17 01:00 96 12/22/17 00:00 90 12/21/17 23:00 95 20 164/96 (118) 97 12/21/17 23:00 100 12/21/17 22:00 90 Physical Exam GENERAL: Pale appearing male, on nasal cannula. In no acute distress SKIN: Cool to touch. Positive jaundice HEAD: Atraumatic. Normocephalic. EYES: Pupils equal and round about 3 mm bilaterally and reactive. Pallor+ positive scleral icterus ENT: No nasal bleeding or discharge. Mucous membranes moist and pink. Oropharynx without erythema NECK: Trachea midline. CARDIOVASCULAR: Tachycardic, RR. S1, S2. No S4. Without murmur RESPIRATORY: Diminished breath sounds throughout. No wheezing rales or rhonchi. GASTROINTESTINAL: Biliary and peritoneal drain in place. Peroneal drain has been removed.. Biliary drain 625 cc. MUSCULOSKELETAL: Extremities without difficulty and peripheral edema. NEUROLOGICAL: Alert awake oriented 3. No focal deficits. Cranial nerves II through XII grossly intact. Strength is equal symmetric. Normal sensation. Laboratory Laboratory Tests Test 12/22/17 11:50 12/22/17 12:10 12/22/17 13:38 12/22/17 14:24 Blood Urea Nitrogen 27 Creatinine 1.28 Random Glucose 188 Total Protein 5.5 Albumin 2.7 Calcium Level 10.1 Alkaline Phosphatase 190 Aspartate Amino Transf (AST/SGOT) 173 Alanine Aminotransferase (ALT/SGPT) 199 Total Bilirubin 9.7 Sodium Level 142 Potassium Level 3.8 Chloride Level 97 Carbon Dioxide Level 38.5 Anion Gap 7 Estimat Glomerular Filtration Rate 54 White Blood Count 60.6 60.5 Red Blood Count 2.88 2.59 Hemoglobin 8.8 8.1 Hematocrit 26.8 23.9 Mean Corpuscular Volume 93.2 92.1 Mean Corpuscular Hemoglobin 30.5 31.3 Mean Corpuscular Hemoglobin Concent 32.7 34.0 Red Cell Distribution Width 18.4 18.5 Platelet Count 175 162 Mean Platelet Volume 10.4 10.8 CBC Comment AUTO DIFF AUTO DIFF Differential Total Cells Counted 100 100 Neutrophils % (Manual) 88 92 Band Neutrophils % 4 4 Lymphocytes % 3 2 Monocytes % 5 2 Neutrophils # (Manual) 55.8 58.1 Differential Comment FINAL DIFF MANUAL FINAL DIFF MANUAL Toxic Granulation 1+ Platelet Estimate NORMAL NORMAL Platelet Morphology Comment NORMAL NORMAL Polychromasia 2.1 2.0 Target Cells 1+ 1+ Ammonia 17 Nucleated Red Blood Cells 1 Test 12/22/17 17:40 12/22/17 20:20 12/22/17 20:25 Blood Gas Puncture Site RT RADIAL Blood Gas Patient Temperature 98.6 Blood Gas HCO3 38 Blood Gas Base Excess 13.5 Blood Gas Oxygen Saturation 93 Arterial Blood pH 7.51 Arterial Blood Partial Pressure CO2 48 Arterial Blood Partial Pressure O2 89 Arterial Blood Oxygen Content 10.4 Arterial Blood Carboxyhemoglobin 2.6 Arterial Blood Methemoglobin 1.5 Blood Gas Hemoglobin 7.8 Oxygen Delivery Device NASAL CANNULA Blood Gas Liter Flow 3 Hemoglobin 7.6 Hematocrit 23.7 Lipase 811 Tumor Marker Alpha Fetoprotein 1.5 Carcinoembryonic Antigen 1.0 Lactic Acid Level 2.4 Date/Time Source Procedure Growth Status 12/22/17 20:20 Blood Peripheral Aerobic Blood Culture Pending Received 12/22/17 20:20 Blood Peripheral Anaerobic Blood Culture Pending Received 12/04/17 00:42 Fluid Bile Fluid Gram Stain - Final Complete 12/04/17 00:42 Body Fluid Culture - Final Marielle Albicans Complete 12/20/17 05:13 Stool Stool Stool Occult Blood (RADHA) - Final HEMOCCULT POSITIVE Complete 12/16/17 12:53 Urine Clean Catch Legionella Antigen - Final PRESUMPTIVE NEGATIVE FOR LEGIONELLA P... Complete 12/16/17 12:53 Urine Clean Catch Streptococcus pneumoniae Antigen (M - Final PRESUMPTIVE NEGATIVE FOR STREPTOCOCCU... Complete 12/14/17 00:30 Wound Abdomen Gram Stain - Final Complete 12/14/17 00:30 Wound Abdomen Wound Culture - Final NO GROWTH IN 72 HRS.--AEROBICALLY OR ... Complete Result Diagram: 12/22/17201912/22/17 1150 Assessment and Plan Assessment and Plan NEURO/PSYCH: Insomnia Currently on hydrocodone/acetaminophen 5-10/325 one tablet every 4 hours when necessary pain 1-10 Melatonin 5 mg at night as needed. He received temazepam 7.5 mg tablets 11 overnight 12/06 CT brain 12/19 revealed no acute intracranial findings As needed haloperidol 2 mill grams IV every 4 hours when necessary agitation RESP: Acute respiratory failure resolved History of tobacco use Extubated 12/05/17, tolerating well respiratory grullon. Nasal cannula to maintain saturations greater than equal to 92% currently 2 L Incentive spirometry while awake Albuterol/ipratropium aerosols every 6 hours scheduled and when necessary albuterol aerosols every 2 hours dyspnea Aggressive pulmonary toilet EzPAP and Acapella scheduled every 6 hours incentive spirometry every hour while awake CV: Hemorrhagic shock-resolved Sinus tachycardia/SIRS Stress dose steroids as per below with discontinuation 12/10 Status post multiple blood and blood product transfusion as below Written for as needed metoprolol. 2.5 mg every 6 hours as needed for heart rate greater than 120. Metoprolol 25 mg by mouth every 8 hours GI: Gastroesophageal reflux disease Intrahepatic biliary obstruction status post biliary stent and drain 12/03/16 ( Dr. Hurtado) Marielle cholangitis Stage liver laceration Hyperammonia Liver laceration with hemoperitoneum Full liquid diet. Advance per general surgery s/p OR ex lap with Dr. Montero, 12/04 and control of bleeding from liver capsular laceration with Surgicel and packing GI following for biliary obstruction ? Cholangiocarcinoma Elevated CA 19-9 85 Will need further workup for Klatskin tumor/cholangiocarcinoma with GI Once stable may need ERCP/Biopsy with GI Pantoprazole 40 mg IV daily for GI prophylaxis. Patient is on omeprazole 20 mg daily at home Docusate sodium/senna 1 tablet twice a day for bowel regimen. Having bowel movements. Added lactulose for elevated ammonia CT abdomen/pelvis 12/12 revealed pancreatitis. Resolution of hemoperitoneum. FEN/RENAL: BPH Continue finasteride 5 mg daily Carmona to be maintained while on diuretics. Monitor intake and output. Replace electrolytes per ICU protocol ID: Severe sepsis Marielle cholangitis Staph epi UTI s/p biliary stent, marielle albicans in biliary culture 12/04 Urine cultures positive for pansensitive staph epi 12/01 Blood cultures 12/03 no growth. On piperacillin/tazobactam, and fluconazole 400 daily ID consulted- Dr. Gill Pertinent cultures marielle albicans in biliary culture 12/04 Urine cultures positive for pansensitive staph epi 12/01 Blood cultures 12/03 no growth. Repeat blood cultures 2 today HEME: Normocytic anemia Thrombocytopenia Leukocytosis Transfused 7 units packed red cells, 3 units FFP, 1 unit cryo on 12/03 - 12/04 Serial CBC. Replace as clinically indicated follow trends ENDO: Hypothyroidism Chronic prednisone 5 mg daily for rheumatoid arthritis Continue Synthroid 112 g - 100 micrograms daily. TSH 0.2. Normal free T4. Hydrocortisone weaning currently 25 mg every 12 hours. Stop date 12/10 PROPH: SCDs for DVT prophylaxis. Enoxaparin 40 mg daily. Okayed By general surgery.. Pantoprazole 40 mg IV 24 ACCESS: Right IJ central venous line placed 12/03/17 - 12/10. Left femoral art line placed 12/03/17 --12/07 Level II follow-up. We'll sign off. Family medicine team to follow. Robinson Loja MD Dec 22, 2017 9:43 pm
--- NOTE | 2017-12-22 21:44 | HHI.CCPN ---
Subjective Remarks/Hospital Course 82-year-old male with past history of BPH, hyperlipidemia, PMR who is admitted to [facility] 12/01/17 with right upper quadrant abdominal pain and jaundice. LFTs were elevated in an obstructive pattern. CT demonstrated intrahepatic biliary duct dilatation. A mass was not clearly seen. 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 He underwent percutaneous biliary stent placement and drain by interventional radiology 12/03/17 (Dr. Hurtado). He was hypotensive post procedure and this was initially managed by child and family services worker with 1.5 L fluid resuscitation and stress dose steroids, abx for possible biliary sepsis. Hypotension persisted and he was transferred to ICU with critical care medicine consult. When I went to evaluate the patient he appeared pale with cool skin concerning for hemorrhagic shock. CBC demonstrated leukocytosis 27.5 and hemoglobin was 9.4 from a baseline of 13. Place central line and art line, started neosynephrine, began transfusing blood products until appropriately stabilized for transition to CT scanner. CT scan demonstrated moderate hemoperitoneum with hemorrhage adjacent to the liver. The biliary drain was in good position. Called Dr. Montero who will take patient to OR for emergent laparotomy. agreeable to risks of surgery. Upon transition to OR he had received PRBC 7 units, 2 units FFP and 1 gram calcium chloride with 1 more unit of FFP, 1 unit platelets, 1 unit cryo ready to transfuse. 12/04/17: Status post exploratory laparotomy and control of liver laceration bleeding by Dr. montero, findinL hemoperitoneum, Capsular tear Segment of the liver. Remains on Chas-Synephrine at 50 mcg/m. Repeat lab work showed platelet count of 50 hemoglobin of 11.9. Platelet transfusion ordered. at the bedside 12/05/17: Tolerating CPAP, follows commands but tachycardic. White count increased to 52,000 biliary fluid with Jabari. I have increase Diflucan to 400 mg daily and consulted ID. Urine output minimal, no response to fluid bolus. Weight up by 10 kg, will attempt diuresis 12/06/17: Extubated yesterday. Breathing comfortably. Tachycardic up to 160s, white count remains high at 50,000, tachycardia most likely from SIRS response/ sepsis. Responded to beta thania. Urine output adequate with Lasix. 16 KG fluid up. Start scheduled Lasix 40 mg IV every 8 hours with IV albumin. Keep nothing by mouth until cleared by general surgery 12/07: Afebrile. Heart rate in the 120s. Off all vasopressors. Tolerating full liquid diet. Positive BM 1. Pain control. 12/08: Afebrile. Pulse less than 100. Tolerating full liquid diet. Positive BM. Pain is controlled. 12/09: Currently Tmax 99.3. Elevated WBC again today. Tachycardic with movement. Pleasantly confused but redirectable. CT brain pending. 12/10: Afebrile. Slightly downtrending WBC count. Agitated overnight. CT brain no acute findings. Ammonia level slightly elevated at 43. Less tachycardic on scheduled metoprolol. 12/11: Afebrile. Tolerating oral diet. Biliary drain with 825 output overnight. ANI with minimal output 25 cc.. Requesting glass of water 12/12: Tmax 99.3. Currently 99.1. 6. A biliary drain overnight. CT revealed pancreatitis likely from biliary drain. No other focal evidence of discrete infection identified. 12/22: WBC again 60, worsening renal function, borderline hypotension, transferred back to ICU Objective Vital Signs Date Time Temp Pulse Resp B/P (MAP) Pulse Ox O2 Delivery O2 Flow Rate FiO2 12/22/17 21:22 98 Nasal Cannula 4.00 12/22/17 17:00 96 12/22/17 15:00 99.1 26 115/76 (89) 12/19/17 21:04 40 Intake and Output 12/22/17 12/22/17 12/23/17 08:00 16:00 00:00 Intake Total 240 ml Output Total 850 ml 200 ml Balance -610 ml -200 ml Result Diagram: 12/22/17201912/22/17 1150 Other Results Microbiology Date/Time Source Procedure Growth Status 12/20/17 05:13 Stool Stool Stool Occult Blood (RADHA) - Final HEMOCCULT POSITIVE Complete Laboratory Tests Test 12/22/17 17:40 Blood Gas Puncture Site RT RADIAL Blood Gas Patient Temperature 98.6 Blood Gas HCO3 38 mmol/L (22-26) Blood Gas Base Excess 13.5 mmol/L (-2-2) Blood Gas Oxygen Saturation 93 % (90-100) Arterial Blood pH 7.51 (7.380-7.420) Arterial Blood Partial Pressure CO2 48 mmHg (38-42) Arterial Blood Partial Pressure O2 89 mmHg (61-120) Arterial Blood Oxygen Content 10.4 Vol % (12.0-20.0) Arterial Blood Carboxyhemoglobin 2.6 % (0-4) Arterial Blood Methemoglobin 1.5 % (0-2) Blood Gas Hemoglobin 7.8 G/DL (12.0-16.0) Oxygen Delivery Device NASAL CANNULA Blood Gas Liter Flow 3 L/M Imaging Last Impressions Abdomen/Pelvis CT 12/11/17 0000 Signed Impressions: Service Date/Time: December 23:42 - CONCLUSION: 1. There has been interval development of diffuse pancreatitis. There is diffuse inflammatory changes surrounding the pancreas. 2. The previously noted fluid adjacent to the liver has resolved. 3. There is an internal/external biliary drainage catheter in place which appears to be in good position and unchanged in position compared to the prior study. 4. There is a small amount of free fluid deep in the pelvis. 5. Small bilateral pleural effusions. Nathen Ruano MD Head CT 12/09/17 0000 Signed Impressions: Service Date/Time: Saturday, December 09, 2017 20:02 - CONCLUSION: Negative noncontrast head CT. Landry Ryan MD Chest X-Ray 12/07/17 0600 Signed Impressions: Service Date/Time: Thursday, December 07, 2017 04:09 - CONCLUSION: No significant change. Persistent left pleural effusion and left lower lobe atelectasis versus consolidation. Jerry Laureano MD Abdomen X-Ray 12/03/17 1808 Signed Impressions: Service Date/Time: Sunday, December 03, 2017 18:15 - CONCLUSION: Nonspecific abdomen. K. Gurvinder Jean MD Bile Duct Drainage 12/03/17 0000 Signed Impressions: Service Date/Time: Sunday, December 03, 2017 14:10 - CONCLUSION: Uncomplicated biliary stent placement as above. Bj Hurtado MD Cholangiopancreatography MRI 12/02/17 0000 Signed Impressions: Service Date/Time: Saturday, December 02, 2017 08:17 - CONCLUSION: 1. Significant dilatation of the intrahepatic ducts ending at the confluence and possibility of stricture at this site or a Klatskin's tumor which is not visualized should be entertained. 2. Wedge-shaped focal fat right hepatic lobe. KLivier Jean MD Abdomen Ultrasound 12/01/17 0000 Signed Impressions: Service Date/Time: Friday, December 01, 2017 11:49 - CONCLUSION: 1. Intrahepatic biliary duct dilatation better seen on the CT examination. A lesion at the biliary duct confluence/common hepatic duct region still needs to be suspected. An ERCP or MRCP could be used to further evaluate this region. 2. Suspected area of focal hepatic steatosis at the anterior segment right lobe of the liver. 3. Gallstones Landry Zarate MD Objective Remarks GENERAL: Pale appearing male, on nasal cannula. In no acute distress , generalized jaundice SKIN: Cool to touch. Positive jaundice HEAD: Atraumatic. Normocephalic. EYES: Pupils equal and round about 3 mm bilaterally and reactive. Pallor+ positive scleral icterus ENT: No nasal bleeding or discharge. Mucous membranes moist and pink. Oropharynx without erythema NECK: Trachea midline. CARDIOVASCULAR: Tachycardic, RR. S1, S2. No S4. Without murmur RESPIRATORY: Diminished breath sounds throughout. No wheezing rales or rhonchi. GASTROINTESTINAL: Biliary and peritoneal drain in place. Peroneal drain has been removed.. Biliary drain 625 cc. MUSCULOSKELETAL: Extremities without difficulty and peripheral edema. NEUROLOGICAL: Alert awake oriented 3. No focal deficits. Cranial nerves II through XII grossly intact. Strength is equal symmetric. Normal sensation. A/P Assessment and Plan NEURO/PSYCH: Insomnia Pain due to acute pancreatitis Currently on hydrocodone/acetaminophen 5-10/325 one tablet every 4 hours when necessary pain 1-10 Melatonin 5 mg at night as needed. He received temazepam 7.5 mg tablets 11 overnight 12/06 CT brain 12/19 revealed no acute intracranial findings As needed haloperidol 2 mill grams IV every 4 hours when necessary agitation RESP: Acute respiratory failure resolved History of tobacco use Extubated 12/05/17, tolerating well respiratory grullon. Nasal cannula to maintain saturations greater than equal to 92% currently 2 L Incentive spirometry while awake Albuterol/ipratropium aerosols every 6 hours scheduled and when necessary albuterol aerosols every 2 hours dyspnea Aggressive pulmonary toilet CV: Hemorrhagic shock-resolved Sinus tachycardia/SIRS Stress dose steroids as per below with discontinuation 12/10 Status post multiple blood and blood product transfusion as below Written for as needed metoprolol. 2.5 mg every 6 hours as needed for heart rate greater than 120. 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 Hurtado) Jabari cholangitis Stage liver laceration Hyperammonia Liver laceration with hemoperitoneum Full liquid diet. Advance per general surgery s/p OR ex lap with Dr. Montero, 12/04 and control of bleeding from liver capsular laceration with Surgicel and packing GI following for biliary obstruction ? Cholangiocarcinoma Elevated CA 19-9 85 Will need further workup for Klatskin tumor/cholangiocarcinoma with GI Once stable may need ERCP/Biopsy with GI Pantoprazole 40 mg IV daily for GI prophylaxis. Patient is on omeprazole 20 mg daily at home Docusate sodium/senna 1 tablet twice a day for bowel regimen. Having bowel movements. Added lactulose for elevated ammonia CT abdomen/pelvis 12/12 revealed pancreatitis. Resolution of hemoperitoneum. FEN/RENAL: BPH Continue finasteride 5 mg daily Carmona to be maintained while on diuretics. Monitor intake and output. Replace electrolytes per ICU protocol ID: Severe sepsis Jabari cholangitis Staph epi UTI s/p biliary stent, jabari albicans in biliary culture 12/04 Urine cultures positive for pansensitive staph epi 12/01 Blood cultures 12/03 no growth. On piperacillin/tazobactam, and fluconazole 400 daily Vanco DC'd by ID ID consulted- Dr. Gill Pertinent cultures jabari albicans in biliary culture 12/04 Urine cultures positive for pansensitive staph epi 12/01 Blood cultures 12/03 no growth. Repeat blood cultures 2 today HEME: Normocytic anemia Thrombocytopenia Leukocytosis Transfused 7 units packed red cells, 3 units FFP, 1 unit cryo on 12/03 - 12/04 Serial CBC. Replace as clinically indicated follow trends H&H above 7 today we'll monitor trend ENDO: Hypothyroidism Chronic prednisone 5 mg daily for rheumatoid arthritis Continue Synthroid 112 g - 100 micrograms daily. TSH 0.2. Normal free T4. Hydrocortisone weaning currently 25 mg every 12 hours. Stop date 12/10 PROPH: SCDs for DVT prophylaxis. Enoxaparin 40 mg daily. Okayed By general surgery.. Pantoprazole 40 mg IV 24 ACCESS: Utilize peripheral IVs Critical Care: The total critical care time was 35 minutes. Time to perform other separately billable procedures was not included in the critical care time. Robinson Loja MD Dec 22, 2017 9:43 pm
--- NOTE | 2017-12-22 22:03 | MB ---
cc: JOHNNY GUZMAN DATE OF CONSULTATION 12/22/[address] Abbie Jordan. REASON FOR CONSULTATION Pulmonary management. HISTORY OF THE PRESENT ILLNESS Mr. Rios is an 82-year-old male with history of polymyalgia rheumatica, hypertension. He was admitted in the hospital on 12/01/2017. He was found to have right upper abdominal pain, deep jaundice. He had a CT scan of abdominal done. He had a MRCP and had antibiotic dilation. He underwent exploratory laparotomy. Also has a drain placed. Today he was transferred to the intensive care unit. His white cell count has gone up to 60,000. He has mild abdominal pain, feels weak. He is somewhat confused. He had a workup done. His CBC showed a WBC count of 6.5, hemoglobin 8.1, hematocrit 23.9, MCV 92, platelet count 162. Sodium 142, potassium 3.8, chloride 97, CO2 27, creatinine 1.28. INR is 1.8. IMAGING He had a CT scan of the abdomen done which shows that he has worsening pancreatitis, increasing diameter of free fluid in the pelvis, probably hepatic infarct. He has a biliary drain present. Moderate pleural effusion. No evidence for colitis. PAST MEDICAL HISTORY Significant for: 1. A history of polymyalgia rheumatica. 2. Hyperlipidemia. 3. Gastroesophageal reflux disease. 4. History of lumbar laminectomy. 5. Inguinal hernia surgery. MEDICATIONS He is currently takin. Flagyl I.V. 2. Albuterol/Atrovent nebulizer treatment. 3. Solu-Medrol 60 mg. 4. Metoprolol 37.5 mg. 5. Zosyn IV. 6. Pulmicort twice a day. 7. Protonix 40 mg a day. 8. Levothyroxine 100 mcg a day. 9. Diflucan 200 mg q.24-hour. ALLERGIES NO KNOWN DRUG ALLERGIES. SOCIAL HISTORY He has a history of smoking in the past. FAMILY HISTORY Significant for cancer. REVIEW OF SYSTEMS The patient is weak, tired and confused, not able to give much information. PHYSICAL EXAMINATION GENERAL: Reveals an elderly male. Mild shortness of breath. VITAL SIGNS: Blood pressure 115/76, heart rate 84, respirations 20, temperature 99.1. HEENT: Pupils are equal and reactive to light. He has jaundice. NECK: Supple. JVP not raised. CHEST: Air entry equal bilaterally. Decreased breath sounds at the bases. CARDIOVASCULAR: S1, S2 normal. ABDOMEN: Mildly dilated. He has a scar of recent surgery. EXTREMITIES: No edema. IMPRESSION 1. Small pleural effusion. 2. Likely sepsis. 3. Leukocytosis. 4. Recent exploratory laparotomy. 5. History of Polymyalgia rheumatica. PLAN Septic workup is underway. We will check the lactic acid. Supplement his oxygen. Continue his antibiotic and steroids. Business Objects Architect is seeing the patient. Further treatment will depend on the course in the hospital. Thank you Dr. Abbie Jordan for this consultation. MD CHERYL Lloyd/EVETTE /7:34 PM /9:45 PM MTDD
[2017-12-22 22:05] LABS: CA 19-9 83.9 U/ML (0.0-35.0)
[2017-12-22] MEDS: SODIUM CHLOR 0.9% 1000 ML INJ 1,000 ML IV SCH ×2 (23:30→23:41)
[2017-12-23] VITALS (28 sets, daily range): BP systolic 66–145; BP diastolic 34–66; PULSE 81–118; RESP 14–33; TEMP 97.7–99; O2SAT 91–100
[2017-12-23] MEDS ORDERED: SODIUM CHLOR 0.9% 1000 ML INJ 1,000 ML IV SCH (02:00)
[2017-12-23] MEDS: metroNIDAZOLE 500 MG INJ 100 ML IV SCH ×3 (02:17→18:36)
[2017-12-23] MEDS: CHLORHEXIDINE GLUCONATE 2 % 1 PACK (2 CLOTHS)(taper/protocol) TOPICAL SCH (04:00)
[2017-12-23 07:03] LABS: HEMATOCRIT 22.3 % (39.0-51.0); HEMOGLOBIN 7.3 GM/DL (13.0-17.0); MEAN CELL VOLUME 92.8 FL (80.0-100.0); MEAN CORPUSCULAR HEMOGLOBIN 30.5 PG (27.0-34.0); MEAN CORPUSCULAR HGB CONC 32.9 % (32.0-36.0); MEAN PLATELET VOLUME 11.3 FL (7.0-11.0); PLATELET COUNT 128 TH/MM3 (150-450); RED BLOOD COUNT 2.41 MIL/MM3 (4.50-5.90); RED CELL DISTRIBUTION WIDTH 19.5 % (11.6-17.2)
[2017-12-23 07:55] LABS: ALBUMIN 2.5 GM/DL (3.4-5.0); ALKALINE PHOSPHATASE 149 U/L (45-117); ALT (GPT) 169 U/L (12-78); AST (GOT) 150 U/L (15-37); BICARBONATE 36.3 MEQ/L (21.0-32.0); BLOOD UREA NITROGEN 43 MG/DL (7-18); CALCIUM 9.5 MG/DL (8.5-10.1); CHLORIDE 100 MEQ/L (98-107); CREATININE 1.81 MG/DL (0.60-1.30); GLOMERULAR FILTRATION RATE 36 ML/MIN (>89); GLUCOSE,RANDOM 143 MG/DL (74-106); MAGNESIUM 2.2 MG/DL (1.5-2.5); PHOSPHORUS 2.5 MG/DL (2.5-4.9); SODIUM (NA) 144 MEQ/L (136-145); TOTAL BILIRUBIN ADULT 10.9 MG/DL (0.2-1.0); TOTAL PROTEIN 5.3 GM/DL (6.4-8.2)
[2017-12-23] MEDS: CHLORHEXIDINE 0.12% (ORAL KIT) 15 ML CUP MT SCH ×2 (08:00→20:00)
--- NOTE | 2017-12-23 08:03 | HHI.FPPN ---
Subjective Remarks Patient was lying in bed, responded to his name and said he is doing okay. Nurse at bedside states that he did not talk much during the night. Carmona catheter was placed a cause he was found to be retaining urine and 575 mL was obtained. He did receive one normal saline bolus and is currently on fluids at 100 mL per hour per critical care. (Lorin Pollock MD R2) Objective Vitals Vital Signs Date Time Temp Pulse Resp B/P (MAP) Pulse Ox O2 Delivery O2 Flow Rate FiO2 12/23/17 04:00 98.5 100 31 118/57 (77) 93 12/23/17 00:00 99.0 104 33 127/65 (85) 93 12/22/17 21:22 98 Nasal Cannula 4.00 12/22/17 20:00 98.3 92 22 107/57 (74) 97 12/22/17 19:00 93 Nasal Cannula 4.00 12/22/17 17:00 96 12/22/17 16:00 84 12/22/17 15:00 96 12/22/17 15:00 99.1 84 26 115/76 (89) 99 12/22/17 12:00 90 12/22/17 11:00 97.3 82 24 130/76 (94) 98 12/22/17 11:00 96 12/22/17 10:00 94 12/22/17 10:00 28 12/22/17 09:58 Nasal Cannula 2.00 12/22/17 09:15 96 I/O 12/22/17 12/22/17 12/22/17 12/23/17 12/23/17 12/23/17 07:00 15:00 23:00 07:00 15:00 23:00 Intake Total 290 ml 100 ml 2150 ml Output Total 850 ml 200 ml 1100 ml Balance -560 ml -100 ml 1050 ml Intake Oral 240 ml 0 ml IV Total 50 ml 100 ml 2150 ml Output Urine Total 600 ml 200 ml 575 ml Drainage Total 250 ml 525 ml Bladder Scan Volume Amount 137 ml # Bowel Movements 0 0 (Lorin Pollock MD R2) Result Diagram: 12/23/1713 12/23/17 0613 Objective Remarks GENERAL: Ill-appearing, jaundiced, lying in bed, eyes open SKIN: No lesions. Jaundiced HEAD: Normocephalic. Atraumatic. EYES: Mild scleral icterus. No injection or drainage. CARDIOVASCULAR: Regular rate and rhythm without murmur, gallop, or rub. RESPIRATORY: Distant breath sounds, poor effort. GASTROINTESTINAL: Abdomen obese, very tender to soft palpation with guarding. BS hypoactive. No guarding. Transverse laparotomy scar over RUQ closed with steri-strips, c/d/i with no induration or fluctuance. Biliary drain in place on right lateral abdomen with small amount of green bilious drainage inside the drain bag. EXTREMITIES: No cyanosis. SCDs in place. 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 Following IR biliary stent and drainage on 12/03, pt found to have liver laceration and hemorrhage causing hemoperitoneum. Exploratory laparotomy performed emergently on 12/04 requiring 6u PRBCs, 1u FFP and 1u Cryo with EBL 2L. Following surgery, pt was sent to ICU for management and showed improvement but still with persistently elevated WBC. He was found to have pancreatitis on CT scan but lipase and amylase were not elevated. His biliary drain was investigated on 12/16/16 due to leaking and was found to be working properly. 12/19: Given 1uPRBCs from blood loss anemia 12/17 w/Hgb 6.8 and H/H improved to 8.1/24.5. Today H/H 7.3/22.7; will do f/u H/H 1PM and will transfuse 1uPRBCs if <7.0. BP elevated to 161/93, confused overnight and incontinent of urine. Getting scheduled oxycodone q8h for pain control now and pt w/o complaint for pain. IR took biopsies of stricture and mass surrounding stricture yesterday and we are awaiting results to consider further workup. Pt appears to be improved wrt RR but still using accessory muscles of neck; is not clammy today; and is resting more comfortably. CXR shows some improvement in PNA. Continues to be afebrile and WBC reduced to 20.6 today. Vanc trough 13.7; continue Zosyn, Vanc, levaquin and diflucan; ID and GI consulted. 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 Discussed with general surgeon Winston who suspects that the fluid pooling is a small bleed from the catheter exchange. He will discuss with IR on Friday to go over all scans/ tests and come up with a plan. Also spoke with IR Dr. Leahy, who states that he would evaluate the scans and will make a decision on the next steps. 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 Pt received 1uPRBCs early this morning with follow-up H/H indicating pt is hemodynamically stable at 8.7/26.1. Morning labs indicate rising H/H at 9.0/ 27.1. Hypernatremia resolved at 142 this morning. LFTs and Tbili still trending upward, likely 2/2 blood loss--will look to trend down hopefully from here. Pt slight jaundiced as a result w/mild scleral icterus. CXR this morning showing moderate CHF progression--adding one time Lasix 20mg IV to scheduled dosage due to having received blood products, reduce cardiac afterload, and reduce WOB. We had nursing flush his biliary drain which appeared to be clogged with dark fluid ; once flushed, began draining light green bilious fluid. 12/22: Pt with increase work of breathing and wheezing, improved on reexamination after steroids and Lasix. His reports that he has been asking to go home. His nurse reports that he has been refusing some medications. Pulmonology consulted for further recommendations. 12/23: Patient lying in bed, very tender to palpation of his abdomen. Respirations appear nonlabored Will discuss with Dr Landry Discharge Planning Anticipate discharge once patient is clinically stable, time frame unclear. (Eko,Lorin Rogers MD R2) Attending Attestation Patient seen and examined. Case reviewed and discussed Agree with plan of care as discussed with me and documented in the resident note. Spoke with Dr. Alatorre, [facility], appreciate recs. Patient now intubated, aware. Spoke with regarding plan of care. She states family will be coming in later to help her make decisions. At this time, she desires aggressive measures. Will obtain LUE doppler 2/2 edema. Order repeat PT/INR. Repeat hgb pending. (Elena Landry MD) Problem List: (1) Leukocytosis ICD Codes: D72.829 - Elevated white blood cell count, unspecified Status: Acute Plan: Originally considered a Leukemoid rxn with WBCs in 35-50 range; however, Heme/onc believed to be infection and since broadening of abx, WBC has previously decreased to 20.6. WBC still significantly elevated at 55. -ID on board, currently on meropenem 1000 mg IV every 12 hours (12/23/17 - ) -Continue fluconazole 400 mg IV every 24 hours (12/06/17 - ) (2) Anemia ICD Codes: D64.9 - Anemia, unspecified Plan: Stable, no active bleeding Pt status post 1 unit of packed RBCs on 12/21 -H/H 7.3/22.3 on 12/23 --> repeat H/H in the afternoon -Plan to transfuse if Hgb <7.0 (3) Liver hemorrhage ICD Codes: K76.89 - Other specified diseases of liver Status: Acute Plan: -S/P ex lap on 12/04 for liver laceration; continues to have blood loss from unknown source -CT abdomen/pelvis performed on 12/23 shows slight worsening of pancreatitis with increase in diameter and new free fluid in the pelvis, probable hepatic infarcts with internal/external biliary drain -Continue metoprolol to 37.5 mg by mouth every 8 hours in order to maintain SBP less than 140 BPM -Continue pain control -Continue to monitor with CBC in morning labs; will transfuse 1uPRBCs if Hgb < 7.0 (4) Pneumonia ICD Codes: J18.9 - Pneumonia, unspecified organism Plan: Pneumonia vs atelectasis on CXR. Afebrile, respiratory rate intermittently increased. Continue antibiotics as below. -Pulmonology consulted for additional recommendations regarding management, appreciate recommendations. -Will increase steroids: Solumedrol 60mg IV BID -Duonebs q4h scheduled while awake -Continue albuterol nebs q2h PRN -Pulmicort 0.5mg nebs Imaging: AP CXR 12/22/17: Basilar and perihilar airspace consolidation similar to December 21 with small effusions AP CXR 12/21/17: Moderate CHF progression on CXR 12/21/17 PA/LAT CXR 12/16/17 : Mild hazy density in the right lung and left base Stable pulmonary infiltrates on 12/19 Antibiotic history: -Zosyn 3.375 g IV every 6 hours (12/01/17 -12/22/17) -Vancomycin IV (stopped 12/18/17) -Levaquin 750mg IV Daily (12/15-12/22/17) (5) Elevated liver enzymes ICD Codes: R74.8 - Abnormal levels of other serum enzymes Plan: Concern for malignancy Bile duct biopsy preformed on 12/18/2017: Benign liver tissue, fibromuscular tissue, and an aggregate of reactive appearing bile duct epithelium, negative for fungal organisms Additional workup per GI, so far unremarkable Pt status post biliary drain placed by IR (6) Abdominal pain ICD Codes: R10.9 - Unspecified abdominal pain Status: Acute Plan: Stable -12/23: Tender to light palpation with guarding -12/22: Abdominal pain stable -12/21: pt with no complaint of pain this morning. BP elevated to 150/89-- Metoprolol 37.5mg as above -12/20: BP intermittently elevated to 156/77, patient tender to palpation of abdomen. Catheter exchange and biopsy performed on 12/18. -12/19: BP elevated overnight to 169/93 but pt not complaining of abdominal pain ; consider hypovolemia/anemia for source of BP elevation -12/18: Cholangiogram and biopsies of stricture and mass outside the stricture; await pathology results; scheduled oxycodone q8h started due to elevated BPs. -IR re-assessed biliary drain on 12/16/16 and it was determined to be working properly; cholangiogram and -GI awaiting results of tumor bx before proceeding further * No plan for EUS until resolution of pancreatitis Protection and morphine IV as needed for pain CT findings as below MRCP findings as below Imaging: CT abdomen/pelvis:12/23/17: slight worsening of pancreatitis with increase in diameter and new free fluid in the pelvis, probable hepatic infarcts with internal/external biliary drain CT of the abdomen and pelvis: 12/19/17: 1. Progression in the extensive acute pancreatitis. No hemorrhage or infarction of the pancreas observed. 2. 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 This is new from the prior study. CT of the abdomen and pelvis: 12/04/17: Moderate volume hemoperitoneum. Interval placement of a right internal/external earlier a drainage catheter. Drain good position. CT of the abdomen and pelvis: 12/11/17: 1. Interval development of diffuse pancreatitis. Diffuse inflammatory changes surrounding the pancreas. 2. Previously noted fluid adjacent to the liver has resolved. 3. Internal/external biliary drainage catheter in place which appears to be in good position and unchanged in position compared to the prior study. 4. Small amount of free fluid deep in the pelvis. 5. Small bilateral pleural effusions. MRCP: 12/02/17: Significant dilation of the intrahepatic ducts ending in the confluence and possibility of stricture at the site or a lack since tumor which is not visualized should be entertained. Wedge-shaped focal fat right hepatic lobe (7) Hypothyroidism ICD Codes: E03.9 - Hypothyroidism, unspecified Status: Chronic Plan: Continue home Synthroid 100 mcg daily (8) Polymyalgia rheumatica ICD Codes: M35.3 - Polymyalgia rheumatica Status: Chronic Plan: On high-dose IV steroids Home prednisone dose is 5 mg by mouth daily (9) BPH (benign prostatic hyperplasia) ICD Codes: N40.0 - Benign prostatic hyperplasia without lower urinary tract symptoms Status: Chronic Plan: -Continue home finasteride (10) FEN/PPX Plan: Fluids: Managed by critical care, normal saline at 100 mL per hour Electrolytes: Monitor and replace PRN Nutrition: Regular diet: mechanical soft, nectar thick DVT: SCDs, holding pharmacologic prophylaxis due to acute bleed (Eko,Lorin U R2) Problem Qualifiers (1) Leukocytosis: Qualified Codes: D72.829 - Elevated white blood cell count, unspecified (2) Abdominal pain: Qualified Codes: R10.11 - Right upper quadrant pain (3) Hypothyroidism: Qualified Codes: E03.9 - Hypothyroidism, unspecified (4) BPH (benign prostatic hyperplasia): Qualified Codes: N40.0 - Benign prostatic hyperplasia without lower urinary tract symptoms Lorin Pollock MD R2 Dec 23, 2017 08:03 Elena Landry MD Dec 23, 2017 17:01
[2017-12-23 08:16] LABS: BANDS 1 % (0-6); LYMPHOCYTES 2 % (9-44); MONOCYTES 3 % (0-8); MYELOCYTES 1 % (0-0); NEUTROPHIL # MANUAL DIFF 52.8 TH/MM3 (1.8-7.7); POLYS (SEG NEUTROPHILS) 94 % (16-70); TARGET CELLS 1+ (NORMAL)
[2017-12-23] MEDS: POTASSIUM CHLORIDE 20 MEQ CONTROLLED RELEASE TAB PO SCH (08:19)
[2017-12-23] MEDS: FINASTERIDE 5 MG TAB PO SCH (08:20)
[2017-12-23] MEDS: methylPREDNISolone SOD SUCC 125 MG/2 ML VIAL IV PUSH SCH ×2 (08:21→20:39)
[2017-12-23] MEDS: PANTOPRAZOLE SODIUM 40 MG VIAL IV PUSH SCH (08:21)
[2017-12-23] MEDS: DOCUSATE SODIUM 50 MG/SENNA 8.6 MG TAB PO SCH ×2 (08:21→20:40)
[2017-12-23] MEDS: URSODIOL 300 MG CAP PO SCH ×2 (08:21→20:39)
[2017-12-23] MEDS: SODIUM CHLORIDE 0.9% FLUSH 10 ML FLUSH IV FLUSH PRN (08:22)
[2017-12-23] MEDS: SODIUM CHLORIDE 0.9% FLUSH 10 ML FLUSH IV FLUSH SCH ×2 (08:22→20:38)
[2017-12-23] MEDS: LACTULOSE SYRUP 20 GM/30 ML CUP PO SCH (08:22)
[2017-12-23] MEDS: MEROPENEM INJ 1,000 MG in SODIUM CHLORIDE 0.9% INJ 100 ML IV SCH ×2 (08:23→20:37)
[2017-12-23] MEDS: RESP: ALBUTEROL 2.5 MG/IPRATROPIUM 0.5 MG NEB (SCH) NEB ×5 (08:36→23:10)
[2017-12-23] MEDS: RESP: BUDESONIDE 0.5 MG/2 ML NEB NEB SCH ×2 (08:36→19:56)
[2017-12-23] MEDS: SODIUM CHLOR 0.9% 1000 ML INJ 1,000 ML IV SCH ×3 (09:45→19:30)
[2017-12-23] MEDS: RESP: ALBUTEROL 2.5 MG/3 ML NEB (PRN) NEB (10:07)
[2017-12-23] MEDS: ALBUMIN 25% INJ 50 ML IV SCH ×2 (11:31→23:22)
[2017-12-23] MEDS ORDERED: ETOMIDATE 40 MG/20 ML VIAL ONE (11:47)
[2017-12-23] MEDS ORDERED: MIDAZOLAM HCL 5 MG/ML VIAL (1 ML) ONE ×2 (11:48→11:49)
[2017-12-23] MEDS ORDERED: ROCURONIUM INJ 50 MG/5 ML VIAL ONE (11:48)
[2017-12-23] MEDS ORDERED: ROCURONIUM INJ 50 MG/5 ML VIAL IV ONE (12:00)
[2017-12-23] MEDS ORDERED: MIDAZOLAM HCL 5 MG/5 ML VIAL IV PUSH ONE (12:00)
[2017-12-23] MEDS ORDERED: ETOMIDATE 20 MG/10 ML VIAL IV PUSH ONE (12:00)
[2017-12-23] MEDS ORDERED: PROPOFOL 500 MG/50 ML INJ 50 ML ONE (12:06)
--- NOTE | 2017-12-23 12:11 | HHI.IDPN ---
Subjective Subjective Remarks Remains fairly stable in th last 24 hrs UOP improved BP stable Afebrile Non contarsted CT showed severe pancreatitis o/w no acute findings No air More awake co abdominal pain Antibiotics meropenem fluconazol Past Medical History Allergies: Coded Allergies: No Known Allergies (Unverified Allergy, Unknown, 12/01/17) Objective . Vital Signs Date Time Temp Pulse Resp B/P (MAP) Pulse Ox O2 Delivery O2 Flow Rate FiO2 12/23/17 10:00 91 Nasal Cannula 6.00 12/23/17 10:00 110 12/23/17 09:00 104 24 93/52 (66) 93 12/23/17 08:38 95 Nasal Cannula 5.00 12/23/17 08:00 98.7 102 30 112/57 (75) 92 12/23/17 08:00 109 12/23/17 07:00 101 29 113/53 (73) 93 12/23/17 07:00 93 Nasal Cannula 4.00 12/23/17 04:00 98.5 100 31 118/57 (77) 93 12/23/17 00:00 99.0 104 33 127/65 (85) 93 12/22/17 21:22 98 Nasal Cannula 4.00 12/22/17 20:00 98.3 92 22 107/57 (74) 97 12/22/17 19:00 93 Nasal Cannula 4.00 12/22/17 17:00 96 12/22/17 16:00 84 12/22/17 15:00 96 12/22/17 15:00 99.1 84 26 115/76 (89) 99 12/23/17 12/23/17 12/24/17 15:00 23:00 07:00 Intake Total 539 ml Balance 539 ml IV Total 539 ml . Laboratory Tests Test 12/22/17 12:10 12/22/17 14:24 12/22/17 20:20 12/23/17 06:13 White Blood Count 60.6 TH/MM3 60.5 TH/MM3 55.0 TH/MM3 Red Blood Count 2.88 MIL/MM3 2.59 MIL/MM3 2.41 MIL/MM3 Hemoglobin 8.8 GM/DL 8.1 GM/DL 7.6 GM/DL 7.3 GM/DL Hematocrit 26.8 % 23.9 % 23.7 % 22.3 % Mean Corpuscular Volume 93.2 FL 92.1 FL 92.8 FL Mean Corpuscular Hemoglobin 30.5 PG 31.3 PG 30.5 PG Mean Corpuscular Hemoglobin Concent 32.7 % 34.0 % 32.9 % Red Cell Distribution Width 18.4 % 18.5 % 19.5 % Platelet Count 175 TH/MM3 162 TH/MM3 128 TH/MM3 Mean Platelet Volume 10.4 FL 10.8 FL 11.3 FL CBC Comment AUTO DIFF AUTO DIFF AUTO DIFF Differential Total Cells Counted 100 100 200 Neutrophils % (Manual) 88 % 92 % 94 % Band Neutrophils % 4 % 4 % 1 % Lymphocytes % 3 % 2 % 2 % Monocytes % 5 % 2 % 3 % Neutrophils # (Manual) 55.8 TH/MM3 58.1 TH/MM3 52.8 TH/MM3 Differential Comment FINAL DIFF MANUAL FINAL DIFF MANUAL FINAL DIFF MANUAL Toxic Granulation 1+ Platelet Estimate NORMAL NORMAL LOW Platelet Morphology Comment NORMAL NORMAL NORMAL Polychromasia 2.1 % 2.0 % Target Cells 1+ 1+ 1+ Nucleated Red Blood Cells 1 /100 WBC Myelocytes 1 % Laboratory Tests Test 12/22/17 11:50 12/22/17 13:38 12/22/17 20:20 12/22/17 20:25 Blood Urea Nitrogen 27 MG/DL Creatinine 1.28 MG/DL Random Glucose 188 MG/DL Total Protein 5.5 GM/DL Albumin 2.7 GM/DL Calcium Level 10.1 MG/DL Alkaline Phosphatase 190 U/L Aspartate Amino Transf (AST/SGOT) 173 U/L Alanine Aminotransferase (ALT/SGPT) 199 U/L Total Bilirubin 9.7 MG/DL Sodium Level 142 MEQ/L Potassium Level 3.8 MEQ/L Chloride Level 97 MEQ/L Carbon Dioxide Level 38.5 MEQ/L Anion Gap 7 MEQ/L Estimat Glomerular Filtration Rate 54 ML/MIN Ammonia 17 MCMOL/L Lipase 811 U/L Tumor Marker Alpha Fetoprotein 1.5 NG/ML Carcinoembryonic Antigen 1.0 NG/ML CA 19-9 Antigen 83.9 U/ML Lactic Acid Level 2.4 mmol/L Test 12/23/17 03:46 12/23/17 06:13 Ammonia LESS THAN 10 MCMOL/L Blood Urea Nitrogen 43 MG/DL Creatinine 1.81 MG/DL Random Glucose 143 MG/DL Total Protein 5.3 GM/DL Albumin 2.5 GM/DL Calcium Level 9.5 MG/DL Phosphorus Level 2.5 MG/DL Magnesium Level 2.2 MG/DL Alkaline Phosphatase 149 U/L Aspartate Amino Transf (AST/SGOT) 150 U/L Alanine Aminotransferase (ALT/SGPT) 169 U/L Total Bilirubin 10.9 MG/DL Sodium Level 144 MEQ/L Potassium Level 3.4 MEQ/L Chloride Level 100 MEQ/L Carbon Dioxide Level 36.3 MEQ/L Anion Gap 8 MEQ/L Estimat Glomerular Filtration Rate 36 ML/MIN Microbiology Date/Time Source Procedure Growth Status 12/22/17 20:20 Blood Peripheral Aerobic Blood Culture - Preliminary NO GROWTH IN 1 DAY Resulted 12/22/17 20:20 Blood Peripheral Anaerobic Blood Culture - Preliminary NO GROWTH IN 1 DAY Resulted 12/22/17 20:20 Blood Peripheral Aerobic Blood Culture - Preliminary NO GROWTH IN 1 DAY Resulted 12/22/17 20:20 Blood Peripheral Anaerobic Blood Culture - Preliminary NO GROWTH IN 1 DAY Resulted 12/23/17 02:54 Urine Catheterized Urine Urine Culture Pending Received Imaging Last Impressions Chest X-Ray 12/22/17 0000 Signed Impressions: Service Date/Time: Friday, December 22, 2017 18:33 - CONCLUSION: 1. Basilar and perihilar airspace consolidation similar to December 21 with small effusions. Ronnie Donis MD Abdomen/Pelvis CT 12/22/17 0000 Signed Impressions: Service Date/Time: Friday, December 22, 2017 18:17 - CONCLUSION: 1. Slight worsening of pancreatitis with increasing diameter and new free fluid in the pelvis. No air within the pancreatic bed to suggest a necrotizing process at this point. 2. 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 3. Moderate bilateral pleural effusions. 4. No evidence for colitis. No bowel obstruction. Mild anasarca. Ronnie Donis MD Celiac/Hepatic Arteriogram 12/20/17 0000 Signed Impressions: Service Date/Time: Wednesday, December 20, 2017 15:32 - CONCLUSION: 1. 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 Followup angiography demonstrated complete exclusion of the pseudoaneurysm and fistula with normal appearing flow within the hepatic branches. Lion Leahy MD Biopsy X-Ray 12/18/17 0000 Signed Impressions: Service Date/Time: December 14:47 - CONCLUSION: Uncomplicated fluoroscopic guided biliary forceps biopsy and internal/external drainage catheter exchange as described in detail above Landry Mitchell MD Cholangiogram 12/16/17 0000 Signed Impressions: Service Date/Time: Saturday, December 16, 2017 17:07 - CONCLUSION: There is no drainage catheter complication. The patient does not have significant accumulation of abdominal ascites along the liver surface to potentially exacerbate fluid leakage along the tube tract. The fluid drainage appears to be benign serosanguinous. Dressing changes p.r.n. recommended. Landry Mitchell MD Abdomen Ultrasound 12/14/17 0000 Signed Impressions: Service Date/Time: Thursday, December 14, 2017 09:01 - CONCLUSION: Limited study due to bandages on the abdomen and bowel gas. Focal fatty infiltration right lobe of liver again seen. Gallbladder appears collapsed. Minimal ascites. Jerry Laureano MD Abdomen X-Ray 12/13/17 0000 Signed Impressions: Service Date/Time: Wednesday, December 13, 2017 18:55 - CONCLUSION: Nothing acute demonstrated. Nonobstructive bowel gas pattern and no free air. Evidence of right upper quadrant surgery and a internal/external biliary drainage catheter again noted. Landry Ryan MD Head CT 12/09/17 0000 Signed Impressions: Service Date/Time: Saturday, December 09, 2017 20:02 - CONCLUSION: Negative noncontrast head CT. Landry Ryan MD Bile Duct Drainage 12/03/17 0000 Signed Impressions: Service Date/Time: Sunday, December 03, 2017 14:10 - CONCLUSION: Uncomplicated biliary stent placement as above. Bj Hurtado MD Cholangiopancreatography MRI 12/02/17 0000 Signed Impressions: Service Date/Time: Saturday, December 02, 2017 08:17 - CONCLUSION: 1. Significant dilatation of the intrahepatic ducts ending at the confluence and possibility of stricture at this site or a Klatskin's tumor which is not visualized should be entertained. 2. Wedge-shaped focal fat right hepatic lobe. Luz Jean MD Physical Exam CONSTITUTIONAL/GENERAL: pt appears very sick Barely responds TUBES/LINES/DRAINS: SKIN: + quite jaundiced, no rashes, or lesions. Skin temperature appropriate. Not diaphoretic. HEENT; dry mucosae, intense icterus CARDIOVASCULAR: Regular rate and rhythm without murmurs, gallops, or rubs. No JVD. Peripheral pulses symmetric. RESPIRATORY/CHEST: Symmetric, unlabored respirations. Clear to auscultation. Breath sounds equal bilaterally. No wheezes, rales, or rhonchi. GASTROINTESTINAL: Abdomen tense and markely tender to palpation and marked distention + guarding, rebound Biliary drain in place with brown bile GENITOURINARY: Without palpable bladder distension. Condom catheter in place with better UOP MUSCULOSKELETAL: Extremities without clubbing, cyanosis, + edema. No joint tenderness or effusion noted. No calf tenderness. No mottling or clubbing. NEUROLOGICAL:more awake; confusedl; incoherent byut clear speech , follows commands PSYCHIATRIC: unable to assess Assessment & Plan Remarks Acute hypovolemic shock following bleeding 2/2 complicaion of biliary stent placement sp emergent surgery - shock cliniocally resolved Obstructive jaundiced, ethiology not yet established sp biliary stent placement candidal cholangitis Sepsis Leukocytosis, leukemoid reaction - improving initilaly ; worse again Acute VDRF - resolved ARF- resolved Pt significant ly improved clinically Staph epi bacteriuria - doubt clin significance - not a trypical urinary pathogen Pancreatitis by CT finding , but lipase amylase wnl ? aspiration PNA Dysphagia, on thickened liquids now New issue: suspecting new sepsis with WBC of 60 K and renal insufficiency sp IR procedure Dec 20 WBC going down Pancreatitis - worse lipase 800 Critically ill Stable Probably CT A/P, wih contast cont meropenem cont fluconazole @ [address] Landry Gill,Brigette Mays MD Dec 23, 2017 12:11
--- NOTE | 2017-12-23 12:25 | PD.PROCEDR ---
Procedure Note Procedure INTUBATION: The patient was put in optimal position for the procedure. Rapid sequence intubation was initiated by me using 20 milligrams of etomidate IV and 5 mg milligrams of Versed IV. NM [paralysis with Rocuronium 50 mg IV. DL with Mac 4 blade Grade 1 view. The patient was intubated with a 8 cuffed endotracheal tube. Tube placement was confirmed by visualization of the tube and balloon passing through the cords, capnometry and subsequent chest x-ray. Breath sounds were equal and well aerated bilaterally postintubation. No breath sounds over stomach. Patient tolerated procedure well. Nettie Alatorre MD Dec 23, 2017 12:25
--- NOTE | 2017-12-23 12:27 | PD.PROCEDR ---
Central Line Procedure REASON FOR PROCEDURE Central venous access PROCEDURE PERFORMED Central line placement: RIJ US guided CONSENT Informed consent for procedure was obtained form patent's The risks and benefits of the procedure were discussed to include but limited to bleeding, clot formation, infection, and even . ANESTHESIA Local injection of 1% Lidocaine DESCRIPTION OF THE PROCEDURE The patient was placed in supine, mild Trendelenburg position. The area was exposed and cleansed with ChloraPrep, times two. Large sterile drape was used to cover the patient, with the site exposed, under sterile conditions including cap, face mask, sterile gown, and sterile gloves. On single attempt, the introducer needle was inserted with negative pressure in syringe and venous flash was obtained. The guide wire was then advanced without any restriction and the needle was removed. The dilator was used without any complications. Using Seldinger technique the 20 CM 7F triple lumen catheter was advanced over the guide wire to a depth of 18 centimeters. The guide wire was removed. All ports were aspirated with dark venous blood return and flushed easily with sterile saline. All ports were capped. Antibiotic disc was placed around central line at puncture site. The central line was secured to the skin with two interrupted 2.0 silk sutures. The area was bandaged with sterile see- through central line bandage. RADIOLOGICAL DATA Ultrasound guidance was used to locate RIJ COMPLICATIONS: No apparent complications ESTIMATED BLOOD LOSS: Less than 1 cc. Nettie Alatorre MD Dec 23, 2017 12:27
--- NOTE | 2017-12-23 12:27 | HHI.PR ---
Subjective Subjective Notes Called by Court Assistant team; patient clinically declining at bedside Patient answered questions appropriately; reports low appetite over the last few days; c/o pain in abdomen; got up to the chair a few days ago but was weak Objective Vitals/I&O Vital Signs Date Time Temp Pulse Resp B/P (MAP) Pulse Ox O2 Delivery O2 Flow Rate FiO2 12/23/17 10:00 91 Nasal Cannula 6.00 12/23/17 10:00 110 12/23/17 09:00 24 93/52 (66) 12/23/17 08:00 98.7 12/19/17 21:04 40 Labs Laboratory Tests Test 12/22/17 13:38 12/22/17 14:24 12/22/17 17:40 12/22/17 20:20 Ammonia 17 White Blood Count 60.5 Red Blood Count 2.59 Hemoglobin 8.1 7.6 Hematocrit 23.9 23.7 Mean Corpuscular Volume 92.1 Mean Corpuscular Hemoglobin 31.3 Mean Corpuscular Hemoglobin Concent 34.0 Red Cell Distribution Width 18.5 Platelet Count 162 Mean Platelet Volume 10.8 CBC Comment AUTO DIFF Differential Total Cells Counted 100 Neutrophils % (Manual) 92 Band Neutrophils % 4 Lymphocytes % 2 Monocytes % 2 Neutrophils # (Manual) 58.1 Nucleated Red Blood Cells 1 Differential Comment FINAL DIFF MANUAL Platelet Estimate NORMAL Platelet Morphology Comment NORMAL Polychromasia 2.0 Target Cells 1+ Blood Gas Puncture Site RT RADIAL Blood Gas Patient Temperature 98.6 Blood Gas HCO3 38 Blood Gas Base Excess 13.5 Blood Gas Oxygen Saturation 93 Arterial Blood pH 7.51 Arterial Blood Partial Pressure CO2 48 Arterial Blood Partial Pressure O2 89 Arterial Blood Oxygen Content 10.4 Arterial Blood Carboxyhemoglobin 2.6 Arterial Blood Methemoglobin 1.5 Blood Gas Hemoglobin 7.8 Oxygen Delivery Device NASAL CANNULA Blood Gas Liter Flow 3 Lipase 811 Tumor Marker Alpha Fetoprotein 1.5 Carcinoembryonic Antigen 1.0 CA 19-9 Antigen 83.9 Test 12/22/17 20:25 12/23/17 03:46 12/23/17 06:13 Lactic Acid Level 2.4 Ammonia LESS THAN 10 White Blood Count 55.0 Red Blood Count 2.41 Hemoglobin 7.3 Hematocrit 22.3 Mean Corpuscular Volume 92.8 Mean Corpuscular Hemoglobin 30.5 Mean Corpuscular Hemoglobin Concent 32.9 Red Cell Distribution Width 19.5 Platelet Count 128 Mean Platelet Volume 11.3 CBC Comment AUTO DIFF Differential Total Cells Counted 200 Neutrophils % (Manual) 94 Band Neutrophils % 1 Lymphocytes % 2 Monocytes % 3 Neutrophils # (Manual) 52.8 Myelocytes 1 Differential Comment FINAL DIFF MANUAL Platelet Estimate LOW Platelet Morphology Comment NORMAL Target Cells 1+ Blood Urea Nitrogen 43 Creatinine 1.81 Random Glucose 143 Total Protein 5.3 Albumin 2.5 Calcium Level 9.5 Phosphorus Level 2.5 Magnesium Level 2.2 Alkaline Phosphatase 149 Aspartate Amino Transf (AST/SGOT) 150 Alanine Aminotransferase (ALT/SGPT) 169 Total Bilirubin 10.9 Sodium Level 144 Potassium Level 3.4 Chloride Level 100 Carbon Dioxide Level 36.3 Anion Gap 8 Estimat Glomerular Filtration Rate 36 Date/Time Source Procedure Growth Status 12/22/17 20:20 Blood Peripheral Aerobic Blood Culture - Preliminary NO GROWTH IN 1 DAY Resulted 12/22/17 20:20 Blood Peripheral Anaerobic Blood Culture - Preliminary NO GROWTH IN 1 DAY Resulted 12/04/17 00:42 Fluid Bile Fluid Gram Stain - Final Complete 12/04/17 00:42 Body Fluid Culture - Final Marielle Albicans Complete 12/20/17 05:13 Stool Stool Stool Occult Blood (RADHA) - Final HEMOCCULT POSITIVE Complete 12/23/17 02:54 Urine Catheterized Urine Urine Culture Pending Received 12/14/17 00:30 Wound Abdomen Gram Stain - Final Complete 12/14/17 00:30 Wound Abdomen Wound Culture - Final NO GROWTH IN 72 HRS.--AEROBICALLY OR ... Complete Radiology Last Impressions Chest X-Ray 12/06/17 0000 Signed Impressions: Service Date/Time: Wednesday, December 06, 2017 07:38 - CONCLUSION: 1. Small left pleural effusion. 2. Cardiomegaly. 3. No acute focal pulmonary infiltrate or pulmonary vascular congestion. Allen Tony MD Abdomen X-Ray [id number] Signed Impressions: Service Date/Time: Sunday, December 03, 2017 18:15 - CONCLUSION: Nonspecific abdomen. K. Gurvinder eJan MD Bile Duct Drainage 12/03/17 0000 Signed Impressions: Service Date/Time: Sunday, December 03, 2017 14:10 - CONCLUSION: Uncomplicated biliary stent placement as above. Bj Hurtado MD Abdomen/Pelvis CT 12/03/17 0000 Signed Impressions: Service Date/Time: December 02:42 - CONCLUSION: 1. Moderate volume hemoperitoneum. 2. Interval placement of a right internal/external biliary drainage catheter. This is in good position. Jung Lundberg Jr., MD Cholangiopancreatography MRI 12/02/17 0000 Signed Impressions: Service Date/Time: Saturday, December 02, 2017 08:17 - CONCLUSION: 1. Significant dilatation of the intrahepatic ducts ending at the confluence and possibility of stricture at this site or a Klatskin's tumor which is not visualized should be entertained. 2. Wedge-shaped focal fat right hepatic lobe. Luz Jean MD Abdomen Ultrasound 12/01/17 0000 Signed Impressions: Service Date/Time: Friday, December 01, 2017 11:49 - CONCLUSION: 1. Intrahepatic biliary duct dilatation better seen on the CT examination. A lesion at the biliary duct confluence/common hepatic duct region still needs to be suspected. An ERCP or MRCP could be used to further evaluate this region. 2. Suspected area of focal hepatic steatosis at the anterior segment right lobe of the liver. 3. Gallstones Landry Zarate MD Disinhibition Score: 14.00 Aggression Score: 14.00 Lability Score: 14.00 Agitated Behavior Total Score: 14 Cardiovascular: Regular Lungs: Clear Abdomen: Other (Well healed RUQ incision with steri strips; no pain around incision; LUQ tenderness with palpation ) Extremities: No edema A/P Assessment and Plan 82 year old male c./p ex lap for liver laceration; called back for clinical changes in patient; transferred to [facility] [place] -Increase RR- Patient intubated today -Hypotensive; responded well to fluid boluses -Tachycardic -Repeat CT abd/pelvis shows pancreatitis; hepatic infarct -Continue to monitor labs; Hmg--7.3; Renal insufficiency BUN/Cr 43/1.81 -No acute surgical interventions indicated at this time -Discussed with Dr. Montero and Sandie Reece Dec 23, 2017 12:27
[2017-12-23] MEDS ORDERED: MIDAZOLAM 100 MG/100 ML INJ 100 ML IV PRN (12:30)
[2017-12-23] MEDS ORDERED: PROPOFOL 1000 MG/100 ML INJ 100 ML IV PRN (12:30)
[2017-12-23] MEDS ORDERED: PROPOFOL 1000 MG/100 ML IV PRN (12:30)
--- NOTE | 2017-12-23 12:52 | RADRPT ---
EXAM DATE/TIME: 12/23/2017 12:22 [place] COMPARISON: CHEST SINGLE AP, December 22, 2017, 18:33. INDICATIONS : Evaluate for pneumothorax post central line and intubation MEDICAL HISTORY : Cardiovascular disease. SURGICAL HISTORY : None. ENCOUNTER: Subsequent ACUITY: 2 days PAIN SCORE: Non-responsive. LOCATION: chest FINDINGS: Status post placement of an endotracheal tube. The tip is just above the abelardo. There is a right-nikky ed central line which appears to be in good position. There is no pneumothorax. There are scattered i nfiltrates in both lung bases. The bony structures appear to be grossly intact. CONCLUSION: 1. Status post placement of an endotracheal tube and right-sided central line. 2. No evidence of pneumothorax. 3. Scattered bibasilar infiltrates. Nathen Ruano MD on December 23, 2017 at 12:48 Board Certified Radiologist. This report was verified electronically.
--- NOTE | 2017-12-23 12:59 | HHI.CCPN ---
Subjective Remarks/Hospital Course 82-year-old male with past history of BPH, hyperlipidemia, PMR who is admitted to [facility] 12/01/17 with right upper quadrant abdominal pain and jaundice. LFTs were elevated in an obstructive pattern. CT demonstrated intrahepatic biliary duct dilatation. A mass was not clearly seen. 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 He underwent percutaneous biliary stent placement and drain by interventional radiology 12/03/17 (Dr. Hurtado). He was hypotensive post procedure and this was initially managed by family educator with 1.5 L fluid resuscitation and stress dose steroids, abx for possible biliary sepsis. Hypotension persisted and he was transferred to ICU with critical care medicine consult. When I went to evaluate the patient he appeared pale with cool skin concerning for hemorrhagic shock. CBC demonstrated leukocytosis 27.5 and hemoglobin was 9.4 from a baseline of 13. Place central line and art line, started neosynephrine, began transfusing blood products until appropriately stabilized for transition to CT scanner. CT scan demonstrated moderate hemoperitoneum with hemorrhage adjacent to the liver. The biliary drain was in good position. Called Dr. Montero who will take patient to OR for emergent laparotomy. agreeable to risks of surgery. Upon transition to OR he had received PRBC 7 units, 2 units FFP and 1 gram calcium chloride with 1 more unit of FFP, 1 unit platelets, 1 unit cryo ready to transfuse. 12/04/17: Status post exploratory laparotomy and control of liver laceration bleeding by Dr. montero, findinL hemoperitoneum, Capsular tear Segment of the liver. Remains on Chas-Synephrine at 50 mcg/m. Repeat lab work showed platelet count of 50 hemoglobin of 11.9. Platelet transfusion ordered. at the bedside 12/05/17: Tolerating CPAP, follows commands but tachycardic. White count increased to 52,000 biliary fluid with Jabari. I have increase Diflucan to 400 mg daily and consulted ID. Urine output minimal, no response to fluid bolus. Weight up by 10 kg, will attempt diuresis 12/06/17: Extubated yesterday. Breathing comfortably. Tachycardic up to 160s, white count remains high at 50,000, tachycardia most likely from SIRS response/ sepsis. Responded to beta thania. Urine output adequate with Lasix. 16 KG fluid up. Start scheduled Lasix 40 mg IV every 8 hours with IV albumin. Keep nothing by mouth until cleared by general surgery 12/07: Afebrile. Heart rate in the 120s. Off all vasopressors. Tolerating full liquid diet. Positive BM 1. Pain control. 12/08: Afebrile. Pulse less than 100. Tolerating full liquid diet. Positive BM. Pain is controlled. 12/09: Currently Tmax 99.3. Elevated WBC again today. Tachycardic with movement. Pleasantly confused but redirectable. CT brain pending. 12/10: Afebrile. Slightly downtrending WBC count. Agitated overnight. CT brain no acute findings. Ammonia level slightly elevated at 43. Less tachycardic on scheduled metoprolol. 12/11: Afebrile. Tolerating oral diet. Biliary drain with 825 output overnight. ANI with minimal output 25 cc.. Requesting glass of water 12/12: Tmax 99.3. Currently 99.1. 6. A biliary drain overnight. CT revealed pancreatitis likely from biliary drain. No other focal evidence of discrete infection identified. 12/22: WBC again 60, worsening renal function, borderline hypotension, transferred back to ICU 12/23: In obvious respiratory distress, tachypneic using accessory muscles bilateral wheezes despite breathing treatments. Worsening renal function creatinine 1.[address] of the abdomen and pelvis from yesterday shows worsening pancreatitis, pelvic free fluid, but no evidence of necrotizing pancreatitis. I discussed with the patient and , will proceed with endotracheal intubation and central line placement. WBC remains elevated at 55K with left shift Objective Vital Signs Date Time Temp Pulse Resp B/P (MAP) Pulse Ox O2 Delivery O2 Flow Rate FiO2 12/23/17 10:00 91 Nasal Cannula 6.00 12/23/17 10:00 110 12/23/17 09:00 24 93/52 (66) 12/23/17 08:00 98.7 12/19/17 21:04 40 Intake and Output 12/23/17 12/23/17 12/24/17 08:00 16:00 00:00 Intake Total 2150 ml 539 ml Output Total 1100 ml Balance 1050 ml 539 ml Result Diagram: 12/23/17 0613 12/23/17 0613 Other Results Laboratory Tests Test 12/22/17 17:40 Blood Gas Puncture Site RT RADIAL Blood Gas Patient Temperature 98.6 Blood Gas HCO3 38 mmol/L (22-26) Blood Gas Base Excess 13.5 mmol/L (-2-2) Blood Gas Oxygen Saturation 93 % (90-100) Arterial Blood pH 7.51 (7.380-7.420) Arterial Blood Partial Pressure CO2 48 mmHg (38-42) Arterial Blood Partial Pressure O2 89 mmHg (61-120) Arterial Blood Oxygen Content 10.4 Vol % (12.0-20.0) Arterial Blood Carboxyhemoglobin 2.6 % (0-4) Arterial Blood Methemoglobin 1.5 % (0-2) Blood Gas Hemoglobin 7.8 G/DL (12.0-16.0) Oxygen Delivery Device NASAL CANNULA Blood Gas Liter Flow 3 L/M Imaging Last Impressions Abdomen/Pelvis CT 12/11/17 0000 Signed Impressions: Service Date/Time: December 23:42 - CONCLUSION: 1. There has been interval development of diffuse pancreatitis. There is diffuse inflammatory changes surrounding the pancreas. 2. The previously noted fluid adjacent to the liver has resolved. 3. There is an internal/external biliary drainage catheter in place which appears to be in good position and unchanged in position compared to the prior study. 4. There is a small amount of free fluid deep in the pelvis. 5. Small bilateral pleural effusions. Nathen Ruano MD Head CT 12/09/17 0000 Signed Impressions: Service Date/Time: Saturday, December 09, 2017 20:02 - CONCLUSION: Negative noncontrast head CT. Landry Ryan MD Chest X-Ray 12/07/17 0600 Signed Impressions: Service Date/Time: Thursday, December 07, 2017 04:09 - CONCLUSION: No significant change. Persistent left pleural effusion and left lower lobe atelectasis versus consolidation. Jerry Laureano MD Abdomen X-Ray 12/03/17 1808 Signed Impressions: Service Date/Time: Sunday, December 03, 2017 18:15 - CONCLUSION: Nonspecific abdomen. K. Gurvinder Jean MD Bile Duct Drainage 12/03/17 0000 Signed Impressions: Service Date/Time: Sunday, December 03, 2017 14:10 - CONCLUSION: Uncomplicated biliary stent placement as above. Bj Hurtado MD Cholangiopancreatography MRI 12/02/17 0000 Signed Impressions: Service Date/Time: Saturday, December 02, 2017 08:17 - CONCLUSION: 1. Significant dilatation of the intrahepatic ducts ending at the confluence and possibility of stricture at this site or a Klatskin's tumor which is not visualized should be entertained. 2. Wedge-shaped focal fat right hepatic lobe. Luz Jean MD Abdomen Ultrasound 12/01/17 0000 Signed Impressions: Service Date/Time: Friday, December 01, 2017 11:49 - CONCLUSION: 1. Intrahepatic biliary duct dilatation better seen on the CT examination. A lesion at the biliary duct confluence/common hepatic duct region still needs to be suspected. An ERCP or MRCP could be used to further evaluate this region. 2. Suspected area of focal hepatic steatosis at the anterior segment right lobe of the liver. 3. Gallstones Landry Zarate MD Objective Remarks GENERAL: Pale appearing male, on nasal cannula. In severe respiratory distress, generalized jaundice SKIN: Positive jaundice HEAD: Atraumatic. Normocephalic. EYES: Pupils equal and round about 3 mm bilaterally and reactive. Pallor+ positive scleral icterus ENT: No nasal bleeding or discharge. Mucous membranes moist and pink. Oropharynx without erythema NECK: Trachea midline. CARDIOVASCULAR: Tachycardic, RR. S1, S2. No S4. Without murmur RESPIRATORY: Tachypneic breathing 40 breaths per minute using accessory muscle. Bilateral extensive expiratory wheezing GASTROINTESTINAL: Biliary and peritoneal drain in place. Well healed ex lap incision. Severe tenderness LUQ MUSCULOSKELETAL: Extremities without deformity. LUE with increased girth NEUROLOGICAL: Alert awake oriented 3. No focal deficits. Strength is equal symmetric. Normal sensation. A/P Assessment and Plan NEURO/PSYCH: Pain due to acute pancreatitis Insomnia Postintubation start Versed and fentanyl for pain control and ventilator synchrony \ Currently on hydrocodone/acetaminophen 5-10/325 one tablet every 4 hours when necessary pain CT brain 12/19 revealed no acute intracranial findings RESP: Acute respiratory failure with hypoxia Probable COPD exacerbation History of tobacco use Intubated and placed on mechanical ventilation DuoNeb every 4 hours scheduled and when necessary Solu-Medrol 60 mg q12 IV See ID section for broad-spectrum antibiotics CV: SIRS/Severe sepsis Lactic acidosis Prev Hemorrhagic shock-resolved Continue fluid resuscitation. Maintenance IV fluids at 100 ml per hour Trend lactic acid Previously received multiple blood and blood product transfusion as below As needed metoprolol. 2.5 mg every 6 hours as needed for heart rate greater than 120. 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 Montero, 12/04/17 and control of bleeding from liver capsular laceration GI following for biliary obstruction Elevated CA 19-9 84 Biopsy was negative, may need repeat Consider ERCP/endoscopic US Pantoprazole 40 mg IV daily for GI prophylaxis. Bowel regimen CT abdomen/pelvis 12/12 revealed pancreatitis. Resolution of hemoperitoneum. CT 12/22 worsening pancreatitis Hepatic angio demonstrated a 1cm pseudoaneurysm arising from a distal right hepatic branch s/p embolization FEN/RENAL: Acute kidney injury BPH Continue finasteride 5 mg daily Carmona to be maintained Continue IV fluids Replace electrolytes per ICU protocol ID: Severe sepsis Jabari cholangitis Staph epi UTI Severe acute pancreatitis s/p biliary stent, jabari albicans in biliary culture 12/04 Urine cultures positive for pansensitive staph epi 12/01 cont meropenem, cont fluconazole, continue IV Flagyl ID Dr. Gill HEME: Normocytic anemia Thrombocytopenia Leukocytosis Serial CBC. Replace as clinically indicated follow trends H&H above 7.3 today we'll monitor trend ENDO: Hypothyroidism Chronic prednisone 5 mg daily for rheumatoid arthritis Continue Synthroid Continue Solu-Medrol 60 mg IV every 12 PROPH: SCDs for DVT prophylaxis. Enoxaparin 40 mg daily. Pantoprazole 40 mg IV 24 ACCESS: RIJ central line placed 12/23/17 Critical Care: The total critical care time was 55 minutes. Time to perform other separately billable procedures was not included in the critical care time. Nettie Alatorre MD Dec 23, 2017 12:59
[2017-12-23] MEDS ORDERED: RASS Change Order XX ONE (13:15)
[2017-12-23] MEDS: fentaNYL DRIP 250 ML IV PRN (13:17)
--- NOTE | 2017-12-23 13:20 | HHI.PR ---
Addendum to Inpatient Note Additional Information Pt became unstable in the last 2 hrs deteriorated intubated BP is low 80/50s now on vent critical and unstable now - will order CT A/P with contrast dw Brigette Mix MD Dec 23, 2017 13:20
[2017-12-23] MEDS ORDERED: DIATRIZOATE MEGLUM/DIATRIZOATE SOD 9 ML CUP PO ONE (13:23)
[2017-12-23 13:39] LABS: HEMATOCRIT 19.6 % (39.0-51.0); HEMOGLOBIN 6.2 GM/DL (13.0-17.0)
[2017-12-23 13:40] LABS: INTERNATIONAL NORMALIZED RATIO 2.3 RATIO; PROTHROMBIN TIME - PATIENT 23.5 SEC (9.8-11.6)
--- NOTE | 2017-12-23 13:43 | PD.ONC.PN ---
Subjective Subjective Remarks Afebrile overnight. Intubated, abdomen distended and patient wincing to palpation. He was [place] [facility] [place] and [place]ubated at noon today. Objective Data Date Time Temp Pulse Resp B/P (MAP) Pulse Ox O2 Delivery O2 Flow Rate FiO2 12/23/17 12:37 99 100 12/23/17 12:00 98.8 118 32 145/66 (92) 97 12/23/17 12:00 100 12/23/17 12:00 118 12/23/17 11:00 117 31 121/57 (78) 91 12/23/17 10:00 91 Nasal Cannula 6.00 12/23/17 10:00 110 12/23/17 10:00 110 29 117/58 (77) 91 12/23/17 09:00 104 24 93/52 (66) 93 12/23/17 08:38 95 Nasal Cannula 5.00 12/23/17 08:00 98.7 102 30 112/57 (75) 92 12/23/17 08:00 109 12/23/17 07:00 101 29 113/53 (73) 93 12/23/17 07:00 93 Nasal Cannula 4.00 12/23/17 04:00 98.5 100 31 118/57 (77) 93 12/23/17 00:00 99.0 104 33 127/65 (85) 93 12/22/17 21:22 98 Nasal Cannula 4.00 12/22/17 20:00 98.3 92 22 107/57 (74) 97 12/22/17 19:00 93 Nasal Cannula 4.00 12/22/17 17:00 96 12/22/17 16:00 84 12/22/17 15:00 96 12/22/17 15:00 99.1 84 26 115/76 (89) 99 12/23/17 12/23/17 12/23/17 07:00 15:00 23:00 Intake Total 2150 ml 539 ml Output Total 1100 ml Balance 1050 ml 539 ml Result Diagram: 12/23/1761212/23/17612 Laboratory Results Laboratory Tests Test 12/22/17 13:38 12/22/17 14:24 12/22/17 17:40 12/22/17 20:20 Ammonia 17 MCMOL/L White Blood Count 60.5 TH/MM3 Red Blood Count 2.59 MIL/MM3 Hemoglobin 8.1 GM/DL 7.6 GM/DL Hematocrit 23.9 % 23.7 % Mean Corpuscular Volume 92.1 FL Mean Corpuscular Hemoglobin 31.3 PG Mean Corpuscular Hemoglobin Concent 34.0 % Red Cell Distribution Width 18.5 % Platelet Count 162 TH/MM3 Mean Platelet Volume 10.8 FL CBC Comment AUTO DIFF Differential Total Cells Counted 100 Neutrophils % (Manual) 92 % Band Neutrophils % 4 % Lymphocytes % 2 % Monocytes % 2 % Neutrophils # (Manual) 58.1 TH/MM3 Nucleated Red Blood Cells 1 /100 WBC Differential Comment FINAL DIFF MANUAL Platelet Estimate NORMAL Platelet Morphology Comment NORMAL Polychromasia 2.0 % Target Cells 1+ Blood Gas Puncture Site RT RADIAL Blood Gas Patient Temperature 98.6 Blood Gas HCO3 38 mmol/L Blood Gas Base Excess 13.5 mmol/L Blood Gas Oxygen Saturation 93 % Arterial Blood pH 7.51 Arterial Blood Partial Pressure CO2 48 mmHg Arterial Blood Partial Pressure O2 89 mmHg Arterial Blood Oxygen Content 10.4 Vol % Arterial Blood Carboxyhemoglobin 2.6 % Arterial Blood Methemoglobin 1.5 % Blood Gas Hemoglobin 7.8 G/DL Oxygen Delivery Device NASAL CANNULA Blood Gas Liter Flow 3 L/M Lipase 811 U/L Tumor Marker Alpha Fetoprotein 1.5 NG/ML Carcinoembryonic Antigen 1.0 NG/ML CA 19-9 Antigen 83.9 U/ML Test 12/22/17 20:25 12/23/17 03:46 12/23/17 06:13 12/23/17 13:00 Lactic Acid Level 2.4 mmol/L Ammonia LESS THAN 10 MCMOL/L White Blood Count 55.0 TH/MM3 Red Blood Count 2.41 MIL/MM3 Hemoglobin 7.3 GM/DL Hematocrit 22.3 % Mean Corpuscular Volume 92.8 FL Mean Corpuscular Hemoglobin 30.5 PG Mean Corpuscular Hemoglobin Concent 32.9 % Red Cell Distribution Width 19.5 % Platelet Count 128 TH/MM3 Mean Platelet Volume 11.3 FL CBC Comment AUTO DIFF Differential Total Cells Counted 200 Neutrophils % (Manual) 94 % Band Neutrophils % 1 % Lymphocytes % 2 % Monocytes % 3 % Neutrophils # (Manual) 52.8 TH/MM3 Myelocytes 1 % Differential Comment FINAL DIFF MANUAL Platelet Estimate LOW Platelet Morphology Comment NORMAL Target Cells 1+ Blood Urea Nitrogen 43 MG/DL Creatinine 1.81 MG/DL Random Glucose 143 MG/DL Total Protein 5.3 GM/DL Albumin 2.5 GM/DL Calcium Level 9.5 MG/DL Phosphorus Level 2.5 MG/DL Magnesium Level 2.2 MG/DL Alkaline Phosphatase 149 U/L Aspartate Amino Transf (AST/SGOT) 150 U/L Alanine Aminotransferase (ALT/SGPT) 169 U/L Total Bilirubin 10.9 MG/DL Sodium Level 144 MEQ/L Potassium Level 3.4 MEQ/L Chloride Level 100 MEQ/L Carbon Dioxide Level 36.3 MEQ/L Anion Gap 8 MEQ/L Estimat Glomerular Filtration Rate 36 ML/MIN Culture Results Microbiology Date/Time Source Procedure Growth Status 12/22/17 20:20 Blood Peripheral Aerobic Blood Culture - Preliminary NO GROWTH IN 1 DAY Resulted 12/22/17 20:20 Blood Peripheral Anaerobic Blood Culture - Preliminary NO GROWTH IN 1 DAY Resulted 12/22/17 20:20 Blood Peripheral Aerobic Blood Culture - Preliminary NO GROWTH IN 1 DAY Resulted 12/22/17 20:20 Blood Peripheral Anaerobic Blood Culture - Preliminary NO GROWTH IN 1 DAY Resulted 12/23/17 02:54 Urine Catheterized Urine Urine Culture Pending Received Imaging Studies Last 24 hours Impressions Chest X-Ray 12/23/17 0000 Signed Impressions: Service Date/Time: Saturday, December 23, 2017 12:22 - CONCLUSION: 1. Status post placement of an endotracheal tube and right-sided central line. 2. No evidence of pneumothorax. 3. Scattered bibasilar infiltrates. Nathen Ruano MD Administered Medications Medications (Trade) Dose Ordered Sig/Rafa Route PRN Reason Start Time Stop Time Status Last Admin Dose Admin Sodium Chloride (NS Flush) 2 ml UNSCH PRN IV FLUSH FLUSH AFTER USING IV ACCESS 12/01/17 11:00 12/23/17 08:22 Sodium Chloride (NS Flush) 2 ml BID IV FLUSH 12/01/17 21:00 12/23/17 08:22 Ondansetron HCl (Zofran Inj) 4 mg Q6H PRN IVP NAUSEA OR VOMITING 12/01/17 11:00 12/16/17 06:18 Acetaminophen/ Hydrocodone Bitart ([place] 10-325 Mg) 1 tab Q4H PRN PO PAIN SCALE 6 TO 10 12/01/17 11:00 12/22/17 13:24 Senna/Docusate Sodium ([place]-Colace) 1 tab BID PO 12/01/17 21:00 12/23/17 08:21 Magnesium Hydroxide (Milk Of Magnesia Liq) 30 ml Q12H PRN PO Mild constipation 12/01/17 11:00 12/09/17 05:20 Finasteride (Proscar) 5 mg DAILY PO 12/02/17 09:00 Future hold 12/23/17 08:20 Prednisone (Deltasone) 5 mg DAILY PO 12/02/17 09:00 Future Hold 12/15/17 11:52 Chlorhexidine Gluconate (Peridex 0.12% Liq) 15 ml BID@08,20 MT 12/04/17 08:00 12/22/17 08:00 Fluconazole/ Sodium Chloride 200 ml @ 100 mls/hr Q24H IV 12/06/17 17:00 12/22/17 17:00 Albuterol Sulfate (Albuterol Neb) 2.5 mg Q2HR NEB PRN NEB dyspnea 12/05/17 22:00 12/23/17 10:07 Levothyroxine Sodium (Synthroid) 100 mcg DAILY@0600 PO 12/08/17 06:00 12/22/17 05:28 Pantoprazole Sodium (Protonix Inj) 40 mg DAILY IV PUSH 12/10/17 09:00 12/23/17 08:21 Lactulose (Lactulose Liq) 30 ml DAILY PO 12/11/17 09:00 12/23/17 08:22 Budesonide (Pulmicort Respule Neb) 0.5 mg Q12HR NEB NEB 12/12/17 09:45 12/23/17 08:36 Potassium Chloride (KCl) 20 meq DAILY PO 12/14/17 09:00 12/23/17 08:19 Ursodiol (Actigall) 300 mg Q12HR PO 12/13/17 21:00 12/23/17 08:21 Albumin Human 50 ml @ 60 mls/hr Q12H IV 12/14/17 12:00 12/23/17 11:31 Furosemide (Lasix Inj) 20 mg DAILY@1215 IV PUSH 12/14/17 12:15 Future Hold 12/22/17 12:13 Oxycodone HCl (Roxicodone) 5 mg Q8H PO 12/18/17 17:00 12/23/17 08:19 Prednisone (Deltasone) 40 mg BID PO 12/20/17 21:00 Future Hold 12/22/17 09:00 Metoprolol Tartrate (Lopressor) 37.5 mg Q8HR PO 12/21/17 14:00 Future Hold 12/22/17 13:23 Methylprednisolone Sodium Succinate (SoluMEDROL INJ) 60 mg Q12HR IV PUSH 12/22/17 12:15 12/23/17 08:21 Metronidazole 100 ml @ 100 mls/hr Q8H IV 12/22/17 18:00 12/23/17 10:23 Miscellaneous Information Patient in critical care unit? Ass... [id number] .XX 12/22/17 19:30 12/22/17 19:30 Chlorhexidine Gluconate (Chlorhexidine 2% Cloth) 3 pack DAILY@04 TOPICAL 12/23/17 04:00 12/27/17 04:01 12/23/17 04:00 Meropenem 1000 mg/ Sodium Chloride 100 ml @ 200 mls/hr Q12H IV 12/22/17 21:00 12/23/17 08:23 Sodium Chloride 1,000 ml @ 100 mls/hr Q10H IV 12/22/17 23:30 12/23/17 10:23 Sodium Chloride 1,000 ml @ 100 mls/hr Q10H IV 12/22/17 23:45 12/22/17 23:41 Fentanyl Citrate 250 ml @ 5 mls/hr TITRATE PRN IV SEDATION 12/23/17 12:30 12/23/17 13:17 Objective Remarks GENERAL: chronically ill male supine in bed, Intubated but awake. SKIN: Warm and dry. HEAD: Normocephalic. EYES: No injection or drainage. NECK: Supple, trachea midline. CARDIOVASCULAR: Regular rate and rhythm RESPIRATORY: Breath sounds equal bilaterally. No accessory muscle use. GASTROINTESTINAL: Abdomen distended, tender to palpation. EXTREMITIES: No cyanosis NEUROLOGICAL: awake, intubated. Assessment/Plan Problem List: (1) Leukocytosis ICD Codes: D72.829 - Elevated white blood cell count, unspecified Status: Acute Plan: --most likely inflammatory and due to underlying infection. --will check another peripheral smear. --recommend treating underlying cause of inflammation/infection (2) Pancreatitis ICD Codes: K85.90 - Acute pancreatitis without necrosis or infection, unspecified (3) Sepsis ICD Codes: A41.9 - Sepsis, unspecified organism Status: Resolved (4) Normocytic anemia ICD Codes: D64.9 - Anemia, unspecified Plan: --likely d/t blood loss-coags prolonged as well. --TIBC low, ferritin elevated, consistent with inflammation --B12-->no deficiency --monitor and transfuse as needed. Assessment 82y/o male with persistent leukocytosis. history of polymyalgia rheumatica, hyperlipidemia and benign prostate hypertrophy (from initial consult, brought forward for continuity of care): Initially admitted on December 01 with right upper quadrant pain and jaundice. His liver functions were abnormal indicating an obstructive pattern. In the emergency department, he had CT imaging which showed intrahepatic dilatation. The patient was evaluated by gastroenterology and underwent an MRCP. 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 He underwent percutaneous biliary stent placement and draining interventional radiology. Postprocedure he became hypotensive requiring aggressive fluid resuscitation and steroids. He developed a biliary sepsis and was placed on antibiotics. Then he became hypotensive and was transferred to the intensive care unit. He began to develop leukocytosis and there was also drop in his hemoglobin. He required pressors and blood product support. A CT of the abdomen was obtained, which showed hemoperitoneum and hemorrhage adjacent to the liver. The biliary drain was in good position. He then underwent emergent laparotomy. He has been requiring packed red blood cells and fresh frozen plasma support. He has also received platelets and prior transfusions. The patient has remained tachycardiac; however he is somewhat improved today. He has persistent leukocytosis. He is being followed by infectious disease. There was Marielle albicans growing in the biliary culture. He also developed a urinary tract infection on admission with Staph epidermidis. Blood cultures have been negative. He is currently on antibiotics. CT of the abdomen and pelvis from 12/11 revealed pancreatitis but resolution of the hemoperitoneum. Plan 1. 2 units FFP STAT, 2 units pRBC have already been ordered by heat set operator 2. CT ab/pelvis ordered 3. check fibrinogen. monitor serial H/H Attending Statement The exam, history, and the medical decision-making described in the above note were completed with the assistance of the mid-level provider. I reviewed and agree with the findings presented. I attest that I had a [id number] encounter with the patient on the same day, and personally performed and documented my assessment and findings in the medical record. complicated patient with multiple ongoing medical issues Peripheral smear reviewed and it's consistent with reactive leukocytosis has hemorrhagic pancreatitis based on CT scan which is contributing towards reactive leukocytosis will address coagulopathy monitor daily coags, fibrinogen and cbc transfuse cryo to keep fibrinogen > 150 [place] K prn patient examined notes/imaging/labs and peripheral smear reviewed d/w rn o/n events reviewed Problem Qualifiers (1) Leukocytosis: Qualified Codes: D72.829 - Elevated white blood cell count, unspecified (2) Sepsis: Qualified Codes: A41.9 - Sepsis, unspecified organism Tressa Galvez Dec 23, 2017 13:43 Keith Miller MD Dec 24, 2017 21:38
[2017-12-23 13:50] LABS: AMYLASE 85 U/L (25-115); LIPASE 326 U/L (73-393)
[2017-12-23] MEDS ORDERED: SODIUM CHLOR 0.9% 250 ML INJ 250 ML IV ONE (14:00)
[2017-12-23] MEDS ORDERED: NOREPINEPHRINE 4 MG/D5W 250 ML IV PRN (14:15)
--- NOTE | 2017-12-23 14:25 | RADRPT ---
EXAM DATE/TIME: 12/23/2017 13:09 [place] COMPARISON: No previous studies available for comparison. INDICATIONS : Left arm edema. MEDICAL HISTORY : Hypercholesterolemia. Renal calculi. Arthritis. Thyroid disease. Hearing loss. Asthma. Gallstones. GE RD. Jaundice. SURGICAL HISTORY : Tooth extraction. Fusion in neck and back. Hernia repair x3. Prostate biopsy. ENCOUNTER: Initial ACUITY: 1 day PAIN SCORE: Non-responsive LOCATION: Left arm. FINDINGS: There is no evidence of deep venous thrombosis. There is occlusive superficial thrombosis in the left cephalic vein at the proximal and mid forearm. CONCLUSION: 1. Positive for superficial thrombus in the left cephalic vein. No deep venous thrombosis. Ronnie Donis MD on December 23, 2017 at 14:22 Board Certified Radiologist. This report was verified electronically.
[2017-12-23] MEDS ORDERED: LACTATED RINGER'S 1000 ML INJ 1,000 ML IV ONE (14:30)
[2017-12-23 14:39] LABS: INTERNATIONAL NORMALIZED RATIO 2.2 RATIO; PROTHROMBIN TIME - PATIENT 22.7 SEC (9.8-11.6)
--- NOTE | 2017-12-23 14:44 | HHI.GIFU ---
Subjective Remarks Pt resting in bed, was transferred to [facility]. Now intubated. No obvious bleeding. HH dropped, getting blood and going for CT. (Kim Apodaca) Objective Vitals I&O Vital Signs Date Time Temp Pulse Resp B/P (MAP) Pulse Ox O2 Delivery O2 Flow Rate FiO2 12/23/17 12:37 99 100 12/23/17 12:00 98.8 118 32 145/66 (92) 97 12/23/17 12:00 100 12/23/17 12:00 118 12/23/17 11:00 117 31 121/57 (78) 91 12/23/17 10:00 91 Nasal Cannula 6.00 12/23/17 10:00 110 12/23/17 10:00 110 29 117/58 (77) 91 12/23/17 09:00 104 24 93/52 (66) 93 12/23/17 08:38 95 Nasal Cannula 5.00 12/23/17 08:00 98.7 102 30 112/57 (75) 92 12/23/17 08:00 109 12/23/17 07:00 101 29 113/53 (73) 93 12/23/17 07:00 93 Nasal Cannula 4.00 12/23/17 04:00 98.5 100 31 118/57 (77) 93 12/23/17 00:00 99.0 104 33 127/65 (85) 93 12/22/17 21:22 98 Nasal Cannula 4.00 12/22/17 20:00 98.3 92 22 107/57 (74) 97 12/22/17 19:00 93 Nasal Cannula 4.00 12/22/17 17:00 96 12/22/17 16:00 84 12/22/17 15:00 96 12/22/17 15:00 99.1 84 26 115/76 (89) 99 I/O 12/22/17 12/22/17 12/22/17 12/23/17 12/23/17 12/23/17 07:00 15:00 23:00 07:00 15:00 23:00 Intake Total 290 ml 100 ml 2150 ml 689 ml Output Total 850 ml 200 ml 1100 ml Balance -560 ml -100 ml 1050 ml 689 ml Intake Oral 240 ml 0 ml IV Total 50 ml 100 ml 2150 ml 689 ml Output Urine Total 600 ml 200 ml 575 ml Drainage Total 250 ml 525 ml Bladder Scan Volume Amount 137 ml # Bowel Movements 0 0 Laboratory Laboratory Tests Test 12/22/17 17:40 12/22/17 20:20 12/22/17 20:25 12/23/17 03:46 Blood Gas Puncture Site RT RADIAL Blood Gas Patient Temperature 98.6 Blood Gas HCO3 38 Blood Gas Base Excess 13.5 Blood Gas Oxygen Saturation 93 Arterial Blood pH 7.51 Arterial Blood Partial Pressure CO2 48 Arterial Blood Partial Pressure O2 89 Arterial Blood Oxygen Content 10.4 Arterial Blood Carboxyhemoglobin 2.6 Arterial Blood Methemoglobin 1.5 Blood Gas Hemoglobin 7.8 Oxygen Delivery Device NASAL CANNULA Blood Gas Liter Flow 3 Hemoglobin 7.6 Hematocrit 23.7 Lipase 811 Tumor Marker Alpha Fetoprotein 1.5 Carcinoembryonic Antigen 1.0 CA 19-9 Antigen 83.9 Lactic Acid Level 2.4 Ammonia LESS THAN 10 Test 12/23/17 05:50 12/23/17 06:13 12/23/17 13:00 White Blood Count 55.0 Red Blood Count 2.41 Hemoglobin 7.3 6.2 Hematocrit 22.3 19.6 Mean Corpuscular Volume 92.8 Mean Corpuscular Hemoglobin 30.5 Mean Corpuscular Hemoglobin Concent 32.9 Red Cell Distribution Width 19.5 Platelet Count 128 Mean Platelet Volume 11.3 CBC Comment AUTO DIFF Differential Total Cells Counted 200 Neutrophils % (Manual) 94 Band Neutrophils % 1 Lymphocytes % 2 Monocytes % 3 Neutrophils # (Manual) 52.8 Myelocytes 1 Differential Comment FINAL DIFF MANUAL Platelet Estimate LOW Platelet Morphology Comment NORMAL Target Cells 1+ Blood Smear Pathologist Review Blood Urea Nitrogen 43 Creatinine 1.81 Random Glucose 143 Total Protein 5.3 Albumin 2.5 Calcium Level 9.5 Phosphorus Level 2.5 Magnesium Level 2.2 Alkaline Phosphatase 149 Aspartate Amino Transf (AST/SGOT) 150 Alanine Aminotransferase (ALT/SGPT) 169 Total Bilirubin 10.9 Sodium Level 144 Potassium Level 3.4 Chloride Level 100 Carbon Dioxide Level 36.3 Anion Gap 8 Estimat Glomerular Filtration Rate 36 Prothrombin Time 23.5 Prothromb Time International Ratio 2.3 Lactic Acid Level 2.0 Amylase Level 85 Lipase 326 Date/Time Source Procedure Growth Status 12/22/17 20:20 Blood Peripheral Aerobic Blood Culture - Preliminary NO GROWTH IN 1 DAY Resulted 12/22/17 20:20 Blood Peripheral Anaerobic Blood Culture - Preliminary NO GROWTH IN 1 DAY Resulted 12/04/17 00:42 Fluid Bile Fluid Gram Stain - Final Complete 12/04/17 00:42 Body Fluid Culture - Final Marielle Albicans Complete 12/20/17 05:13 Stool Stool Stool Occult Blood (RADHA) - Final HEMOCCULT POSITIVE Complete 12/23/17 02:54 Urine Catheterized Urine Urine Culture Pending Received 12/14/17 00:30 Wound Abdomen Gram Stain - Final Complete 12/14/17 00:30 Wound Abdomen Wound Culture - Final NO GROWTH IN 72 HRS.--AEROBICALLY OR ... Complete Imaging Last Impressions Chest X-Ray 12/23/17 0000 Signed Impressions: Service Date/Time: Saturday, December 23, 2017 12:22 - CONCLUSION: 1. Status post placement of an endotracheal tube and right-sided central line. 2. No evidence of pneumothorax. 3. Scattered bibasilar infiltrates. Nathen Ruano MD Abdomen/Pelvis CT 12/22/17 0000 Signed Impressions: Service Date/Time: Friday, December 22, 2017 18:17 - CONCLUSION: 1. Slight worsening of pancreatitis with increasing diameter and new free fluid in the pelvis. No air within the pancreatic bed to suggest a necrotizing process at this point. 2. 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 3. Moderate bilateral pleural effusions. 4. No evidence for colitis. No bowel obstruction. Mild anasarca. Ronnie Donis MD Celiac/Hepatic Arteriogram 12/20/17 0000 Signed Impressions: Service Date/Time: Wednesday, December 20, 2017 15:32 - CONCLUSION: 1. 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 Followup angiography demonstrated complete exclusion of the pseudoaneurysm and fistula with normal appearing flow within the hepatic branches. Lion Leahy MD Biopsy X-Ray 12/18/17 0000 Signed Impressions: Service Date/Time: December 14:47 - CONCLUSION: Uncomplicated fluoroscopic guided biliary forceps biopsy and internal/external drainage catheter exchange as described in detail above Landry Mitchell MD Cholangiogram 12/16/17 0000 Signed Impressions: Service Date/Time: Saturday, December 16, 2017 17:07 - CONCLUSION: There is no drainage catheter complication. The patient does not have significant accumulation of abdominal ascites along the liver surface to potentially exacerbate fluid leakage along the tube tract. The fluid drainage appears to be benign serosanguinous. Dressing changes p.r.n. recommended. Landry Mitchell MD Abdomen Ultrasound 12/14/17 0000 Signed Impressions: Service Date/Time: Thursday, December 14, 2017 09:01 - CONCLUSION: Limited study due to bandages on the abdomen and bowel gas. Focal fatty infiltration right lobe of liver again seen. Gallbladder appears collapsed. Minimal ascites. Jerry Laureano MD Abdomen X-Ray 12/13/17 0000 Signed Impressions: Service Date/Time: Wednesday, December 13, 2017 18:55 - CONCLUSION: Nothing acute demonstrated. Nonobstructive bowel gas pattern and no free air. Evidence of right upper quadrant surgery and a internal/external biliary drainage catheter again noted. Landry Ryan MD Head CT 12/09/17 0000 Signed Impressions: Service Date/Time: Saturday, December 09, 2017 20:02 - CONCLUSION: Negative noncontrast head CT. Landry Ryan MD Bile Duct Drainage 12/03/17 0000 Signed Impressions: Service Date/Time: Sunday, December 03, 2017 14:10 - CONCLUSION: Uncomplicated biliary stent placement as above. Bj Hurtado MD Cholangiopancreatography MRI 12/02/17 0000 Signed Impressions: Service Date/Time: Saturday, December 02, 2017 08:17 - CONCLUSION: 1. Significant dilatation of the intrahepatic ducts ending at the confluence and possibility of stricture at this site or a Klatskin's tumor which is not visualized should be entertained. 2. Wedge-shaped focal fat right hepatic lobe. Luz Jean MD Physical Exam HEENT: Normocephalic; atraumatic, eyes icteric, intubated CHEST: wheezes CARDIAC: RRR ABDOMEN: more distended today, semifirm, EXTREMITIES: No clubbing, cyanosis, or edema. SKIN: + jaundice. TUBE REBUILDER: awake (Kim Apodaca) Assessment and Plan Plan - Initial W/U- abd pain, elevated LFTs, elevated ca 19-9 - 85, Ct done showed intrahepatic biliary duct dilatation without extrahepatic biliary duct dilatation concern for a lesion at the intrahepatic biliary duct or CBD level, MRCP showed Significant dilatation of the intrahepatic ducts ending at the confluence and possibility of stricture at this site or a Klatskin's tumor which is not visualized should be entertained s/p placement biliary drain by IR. path bile duct benign. plan for liver bx when stable - Capsular tear liver, s/p ex lap and control liver laceration bleed. 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 ID following, CT abd w/ contrast pending Plan: - abx per ID - await CT abd with contrast - Monitor labs - Transfuse as needed - will need liver bx, timing TBD - Supportive care - Further recommendations to follow based on results of above Pt has been seen and examined by myself and Dr. Duvall and this note has been written on his behalf (Kim Apodaca) Physician Comments Seen and examined with HOSPICE CONSULTANT, intubated now. CT without contrast done overnight. CT with contrast ordered for today. Drop in H/H with no obvious signs of bleeding. Worsening pancreatitis and LFTs. Discussed with Dr. Alatorre. Overall prognosis guarded. Will discuss with IR . Surgery on case. Discussed with family at the bedside. (Luiz Duvall MD) Kim Apodaca Dec 23, 2017 14:44 Luiz Duvall MD Dec 23, 2017 17:21
--- NOTE | 2017-12-23 16:26 | HHI.HCPN ---
Reason for visit a. To assist with evaluation and management of symptoms including: Pain, dyspnea b. To assist medical decision maker(s) with: better understanding of current medical conditions; weighing benefits/burdens of medical treatment options; making medical treatment decisions. Subjective/Interval History 82-year-old male transferred from [facility] to [facility] overnight for progressive dyspnea and decline. He was awake and somewhat conversant this morning, complaining of dyspnea, feeling generally ill and left upper quadrant abdominal discomfort to palpation, but throughout the day continued to decline, developing worsening respiratory distress, necessitating intubation. Renal function continues to decline with creatinine up to 1.[address] of the abdomen and pelvis yesterday showing worsening pancreatitis, free fluid in the pelvis but no evidence of necrotizing pancreatitis. White blood cells remained elevated at 55 ,000 with a left shift. CA 199 is elevated at 84 on blood tests dated 12/02/17 and 12/22/17. 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 May need repeating. CT with contrast of the abdomen and pelvis has been requested by infectious disease, Dr. Gill for further evaluation. As his creatinine elevated from 1.28-1.81 overnight further consultation with radiology is required prior to him undergoing IV contrast. Venous Doppler of the left upper extremity shows superficial thrombus in the left cephalic vein, no DVT. He is mildly hypotensive with blood pressure 92/53 which responded well to volume infusion, now 134/60. Heart rate remains 101. He is afebrile, saturating adequately on FiO2 100%. Bilirubin is up to 10.9, AST 150, ALT 169, alkaline phosphatase 149. Ammonia remains less than 10, amylase has declined from 811 12/22 to 326 today. Patient remains very ill appearing, jaundiced, now intubated and sedated. . Family/friend interactions Discussed progressive decline and poor prognosis with at bedside. She stated that her made the decision for intubation so "he can't blame her ". Also discussed the decline in hemoglobin, plan for CT of abdomen and pelvis with contrast, results of the biopsy and the compounding scaler opinion that it may require repeating. She continues to want aggressive care. . Advance Directives Living Will: Never completed Health Care Surrogate: Never completed Durable Power of Supervisor [employer]: Never completed Objective Vital Signs Date Time Temp Pulse Resp B/P (MAP) Pulse Ox O2 Delivery O2 Flow Rate FiO2 12/23/17 14:46 98.4 101 14 134/60 100 12/23/17 14:33 98.8 96 15 92/53 100 12/23/17 12:37 99 100 12/23/17 12:00 98.8 118 32 145/66 (92) 97 12/23/17 12:00 100 12/23/17 12:00 118 12/23/17 11:00 117 31 121/57 (78) 91 12/23/17 10:00 91 Nasal Cannula 6.00 12/23/17 10:00 110 12/23/17 10:00 110 29 117/58 (77) 91 12/23/17 09:00 104 24 93/52 (66) 93 12/23/17 08:38 95 Nasal Cannula 5.00 12/23/17 08:00 98.7 102 30 112/57 (75) 92 12/23/17 08:00 109 12/23/17 07:00 101 29 113/53 (73) 93 12/23/17 07:00 93 Nasal Cannula 4.00 12/23/17 04:00 98.5 100 31 118/57 (77) 93 12/23/17 00:00 99.0 104 33 127/65 (85) 93 12/22/17 21:22 98 Nasal Cannula 4.00 12/22/17 20:00 98.3 92 22 107/57 (74) 97 12/22/17 19:00 93 Nasal Cannula 4.00 12/22/17 17:00 96 12/22/17 16:00 84 Intake & Output 12/23/17 12/23/17 07:00 19:00 Intake Total 2250 ml 699 ml Output Total 1100 ml Balance 1150 ml 699 ml Intake Oral 0 ml IV Total 2250 ml 689 ml Blood Product IV Normal Saline Flush 10 ml Output Urine Total 575 ml Drainage Total 525 ml # Bowel Movements 0 Physical Exam CONSTITUTIONAL/GENERAL: This is a morbidly obese, ill appearing, elderly male, lying in bed in mild distress. TUBES/LINES/DRAINS: PIV, RFA, RAC, right jugular central line, Carmona, ETT SKIN: Jaundice noted. No rashes or lesions. Warm dry and intact. HEAD: Atraumatic. Normocephalic. EYES: Pupils equal and round and reactive. Extraocular motions intact. Scleral icterus. No injection or drainage. Fundi not examined. ENT: Hearing diminished. Nose without bleeding or purulent drainage. Throat without visible erythema, exudates, masses, or lesions. NECK: Trachea midline, intubated. CARDIOVASCULAR: Regular rate and rhythm without murmurs, gallops, or rubs. No JVD. Peripheral pulses symmetric. RESPIRATORY/CHEST: Breath sounds shallow, tachypneic with scattered wheezes and coarse rhonchi throughout. GASTROINTESTINAL: Abdomen obese, soft, tender to palpation in LUQ, mildly distended. Bowel sounds present. GENITOURINARY: Without palpable bladder distension. Carmona catheter in place. MUSCULOSKELETAL: Extremities without clubbing, cyanosis, or edema. No joint tenderness or effusion noted. No calf tenderness. No mottling or clubbing. LYMPHATICS: No palpable cervical or supraclavicular adenopathy. NEUROLOGICAL: Intubated, lightly sedated. PSYCHIATRIC: Sedated . Diagnostic Tests Laboratory Laboratory Tests Test 12/20/17 18:52 12/21/17 05:17 12/21/17 07:40 12/21/17 20:09 Hemoglobin 6.8 GM/DL (13.0-17.0) 8.7 GM/DL (13.0-17.0) 9.0 GM/DL (13.0-17.0) Hematocrit 20.3 % (39.0-51.0) 26.1 % (39.0-51.0) 27.3 % (39.0-51.0) White Blood Count 29.9 TH/MM3 (4.0-11.0) Red Blood Count 2.98 MIL/MM3 (4.50-5.90) Mean Corpuscular Volume 91.8 FL (80.0-100.0) Mean Corpuscular Hemoglobin 30.4 PG (27.0-34.0) Mean Corpuscular Hemoglobin Concent 33.1 % (32.0-36.0) Red Cell Distribution Width 19.2 % (11.6-17.2) Platelet Count 183 TH/MM3 (150-450) Mean Platelet Volume 9.8 FL (7.0-11.0) Neutrophils (%) (Auto) 94.7 % (16.0-70.0) Lymphocytes (%) (Auto) 1.1 % (9.0-44.0) Monocytes (%) (Auto) 4.0 % (0.0-8.0) Eosinophils (%) (Auto) 0.0 % (0.0-4.0) Basophils (%) (Auto) 0.2 % (0.0-2.0) Neutrophils # (Auto) 28.3 TH/MM3 (1.8-7.7) Lymphocytes # (Auto) 0.3 TH/MM3 (1.0-4.8) Monocytes # (Auto) 1.2 TH/MM3 (0-0.9) Eosinophils # (Auto) 0.0 TH/MM3 (0-0.4) Basophils # (Auto) 0.1 TH/MM3 (0-0.2) CBC Comment AUTO DIFF Differential Total Cells Counted 100 Neutrophils % (Manual) 95 % (16-70) Monocytes % 4 % (0-8) Neutrophils # (Manual) 28.7 TH/MM3 (1.8-7.7) Myelocytes 1 % (0-0) Differential Comment FINAL DIFF MANUAL Hypersegmented Polys 1+ (NORMAL) Platelet Estimate NORMAL (NORMAL) Platelet Morphology Comment NORMAL (NORMAL) Target Cells 1+ (NORMAL) Stomatocytes 1+ (NORMAL) Blood Urea Nitrogen 23 MG/DL (7-18) Creatinine 0.74 MG/DL (0.60-1.30) Random Glucose 143 MG/DL (74-106) Total Protein 5.5 GM/DL (6.4-8.2) Albumin 2.8 GM/DL (3.4-5.0) Calcium Level 9.5 MG/DL (8.5-10.1) Alkaline Phosphatase 207 U/L (45-117) Aspartate Amino Transf (AST/SGOT) 170 U/L (15-37) Alanine Aminotransferase (ALT/SGPT) 197 U/L (12-78) Total Bilirubin 8.8 MG/DL (0.2-1.0) Sodium Level 142 MEQ/L (136-145) Potassium Level 3.7 MEQ/L (3.5-5.1) Chloride Level 101 MEQ/L (98-107) Carbon Dioxide Level 38.0 MEQ/L (21.0-32.0) Anion Gap 3 MEQ/L (5-15) Estimat Glomerular Filtration Rate 102 ML/MIN (>89) Prothrombin Time 18.1 SEC (9.8-11.6) Prothromb Time International Ratio 1.8 RATIO Activated Partial Thromboplast Time 28.2 SEC (24.3-30.1) Test 12/22/17 11:50 12/22/17 12:10 12/22/17 13:38 12/22/17 14:24 Blood Urea Nitrogen 27 MG/DL (7-18) Creatinine 1.28 MG/DL (0.60-1.30) Random Glucose 188 MG/DL (74-106) Total Protein 5.5 GM/DL (6.4-8.2) Albumin 2.7 GM/DL (3.4-5.0) Calcium Level 10.1 MG/DL (8.5-10.1) Alkaline Phosphatase 190 U/L (45-117) Aspartate Amino Transf (AST/SGOT) 173 U/L (15-37) Alanine Aminotransferase (ALT/SGPT) 199 U/L (12-78) Total Bilirubin 9.7 MG/DL (0.2-1.0) Sodium Level 142 MEQ/L (136-145) Potassium Level 3.8 MEQ/L (3.5-5.1) Chloride Level 97 MEQ/L (98-107) Carbon Dioxide Level 38.5 MEQ/L (21.0-32.0) Anion Gap 7 MEQ/L (5-15) Estimat Glomerular Filtration Rate 54 ML/MIN (>89) White Blood Count 60.6 TH/MM3 (4.0-11.0) 60.5 TH/MM3 (4.0-11.0) Red Blood Count 2.88 MIL/MM3 (4.50-5.90) 2.59 MIL/MM3 (4.50-5.90) Hemoglobin 8.8 GM/DL (13.0-17.0) 8.1 GM/DL (13.0-17.0) Hematocrit 26.8 % (39.0-51.0) 23.9 % (39.0-51.0) Mean Corpuscular Volume 93.2 FL (80.0-100.0) 92.1 FL (80.0-100.0) Mean Corpuscular Hemoglobin 30.5 PG (27.0-34.0) 31.3 PG (27.0-34.0) Mean Corpuscular Hemoglobin Concent 32.7 % (32.0-36.0) 34.0 % (32.0-36.0) Red Cell Distribution Width 18.4 % (11.6-17.2) 18.5 % (11.6-17.2) Platelet Count 175 TH/MM3 (150-450) 162 TH/MM3 (150-450) Mean Platelet Volume 10.4 FL (7.0-11.0) 10.8 FL (7.0-11.0) CBC Comment AUTO DIFF AUTO DIFF Differential Total Cells Counted 100 100 Neutrophils % (Manual) 88 % (16-70) 92 % (16-70) Band Neutrophils % 4 % (0-6) 4 % (0-6) Lymphocytes % 3 % (9-44) 2 % (9-44) Monocytes % 5 % (0-8) 2 % (0-8) Neutrophils # (Manual) 55.8 TH/MM3 (1.8-7.7) 58.1 TH/MM3 (1.8-7.7) Differential Comment FINAL DIFF MANUAL FINAL DIFF MANUAL Toxic Granulation 1+ (NORMAL) Platelet Estimate NORMAL (NORMAL) NORMAL (NORMAL) Platelet Morphology Comment NORMAL (NORMAL) NORMAL (NORMAL) Polychromasia 2.1 % (0.0-1.9) 2.0 % (0.0-1.9) Target Cells 1+ (NORMAL) 1+ (NORMAL) Ammonia 17 MCMOL/L (11-32) Nucleated Red Blood Cells 1 /100 WBC (0-0) Test 12/22/17 17:40 12/22/17 20:20 12/22/17 20:25 12/23/17 03:46 Blood Gas Puncture Site RT RADIAL Blood Gas Patient Temperature 98.6 Blood Gas HCO3 38 mmol/L (22-26) Blood Gas Base Excess 13.5 mmol/L (-2-2) Blood Gas Oxygen Saturation 93 % (90-100) Arterial Blood pH 7.51 (7.380-7.420) Arterial Blood Partial Pressure CO2 48 mmHg (38-42) Arterial Blood Partial Pressure O2 89 mmHg (61-120) Arterial Blood Oxygen Content 10.4 Vol % (12.0-20.0) Arterial Blood Carboxyhemoglobin 2.6 % (0-4) Arterial Blood Methemoglobin 1.5 % (0-2) Blood Gas Hemoglobin 7.8 G/DL (12.0-16.0) Oxygen Delivery Device NASAL CANNULA Blood Gas Liter Flow 3 L/M Hemoglobin 7.6 GM/DL (13.0-17.0) Hematocrit 23.7 % (39.0-51.0) Lipase 811 U/L (73-393) Tumor Marker Alpha Fetoprotein 1.5 NG/ML (0.5-8.0) Carcinoembryonic Antigen 1.0 NG/ML (0.2-5.0) CA 19-9 Antigen 83.9 U/ML (0.0-35.0) Lactic Acid Level 2.4 mmol/L (0.4-2.0) Ammonia LESS THAN 10 MCMOL/L Test 12/23/17 05:50 12/23/17 06:13 12/23/17 13:00 White Blood Count 55.0 TH/MM3 (4.0-11.0) Red Blood Count 2.41 MIL/MM3 (4.50-5.90) Hemoglobin 7.3 GM/DL (13.0-17.0) 6.2 GM/DL (13.0-17.0) Hematocrit 22.3 % (39.0-51.0) 19.6 % (39.0-51.0) Mean Corpuscular Volume 92.8 FL (80.0-100.0) Mean Corpuscular Hemoglobin 30.5 PG (27.0-34.0) Mean Corpuscular Hemoglobin Concent 32.9 % (32.0-36.0) Red Cell Distribution Width 19.5 % (11.6-17.2) Platelet Count 128 TH/MM3 (150-450) Mean Platelet Volume 11.3 FL (7.0-11.0) CBC Comment AUTO DIFF Differential Total Cells Counted 200 Neutrophils % (Manual) 94 % (16-70) Band Neutrophils % 1 % (0-6) Lymphocytes % 2 % (9-44) Monocytes % 3 % (0-8) Neutrophils # (Manual) 52.8 TH/MM3 (1.8-7.7) Myelocytes 1 % (0-0) Differential Comment FINAL DIFF MANUAL Platelet Estimate LOW (NORMAL) Platelet Morphology Comment NORMAL (NORMAL) Target Cells 1+ (NORMAL) Blood Smear Pathologist Review Blood Urea Nitrogen 43 MG/DL (7-18) Creatinine 1.81 MG/DL (0.60-1.30) Random Glucose 143 MG/DL (74-106) Total Protein 5.3 GM/DL (6.4-8.2) Albumin 2.5 GM/DL (3.4-5.0) Calcium Level 9.5 MG/DL (8.5-10.1) Phosphorus Level 2.5 MG/DL (2.5-4.9) Magnesium Level 2.2 MG/DL (1.5-2.5) Alkaline Phosphatase 149 U/L (45-117) Aspartate Amino Transf (AST/SGOT) 150 U/L (15-37) Alanine Aminotransferase (ALT/SGPT) 169 U/L (12-78) Total Bilirubin 10.9 MG/DL (0.2-1.0) Sodium Level 144 MEQ/L (136-145) Potassium Level 3.4 MEQ/L (3.5-5.1) Chloride Level 100 MEQ/L (98-107) Carbon Dioxide Level 36.3 MEQ/L (21.0-32.0) Anion Gap 8 MEQ/L (5-15) Estimat Glomerular Filtration Rate 36 ML/MIN (>89) Prothrombin Time 22.7 SEC (9.8-11.6) Prothromb Time International Ratio 2.2 RATIO Activated Partial Thromboplast Time 36.6 SEC (24.3-30.1) Fibrinogen 458 mg/dL (227-377) Lactic Acid Level 2.0 mmol/L (0.4-2.0) Amylase Level 85 U/L (25-115) Lipase 326 U/L (73-393) . Result Diagram: 12/23/17 1300 12/23/17 0613 Microbiology Microbiology Date/Time Source Procedure Growth Status 12/22/17 20:20 Blood Peripheral Aerobic Blood Culture - Preliminary NO GROWTH IN 1 DAY Resulted 12/22/17 20:20 Blood Peripheral Anaerobic Blood Culture - Preliminary NO GROWTH IN 1 DAY Resulted 12/22/17 20:20 Blood Peripheral Aerobic Blood Culture - Preliminary NO GROWTH IN 1 DAY Resulted 12/22/17 20:20 Blood Peripheral Anaerobic Blood Culture - Preliminary NO GROWTH IN 1 DAY Resulted 12/23/17 02:54 Urine Catheterized Urine Urine Culture Pending Received Imaging Last Impressions Upper Extremity Ultrasound 12/23/17 0000 Signed Impressions: Service Date/Time: Saturday, December 23, 2017 13:09 - CONCLUSION: 1. Positive for superficial thrombus in the left cephalic vein. No deep venous thrombosis. Ronnie Donis MD Chest X-Ray 12/23/17 0000 Signed Impressions: Service Date/Time: Saturday, December 23, 2017 12:22 - CONCLUSION: 1. Status post placement of an endotracheal tube and right-sided central line. 2. No evidence of pneumothorax. 3. Scattered bibasilar infiltrates. Nathen Ruano MD Abdomen/Pelvis CT 12/22/17 0000 Signed Impressions: Service Date/Time: Friday, December 22, 2017 18:17 - CONCLUSION: 1. Slight worsening of pancreatitis with increasing diameter and new free fluid in the pelvis. No air within the pancreatic bed to suggest a necrotizing process at this point. 2. 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 3. Moderate bilateral pleural effusions. 4. No evidence for colitis. No bowel obstruction. Mild anasarca. Ronnie Donis MD Celiac/Hepatic Arteriogram 12/20/17 0000 Signed Impressions: Service Date/Time: Wednesday, December 20, 2017 15:32 - CONCLUSION: 1. 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 Followup angiography demonstrated complete exclusion of the pseudoaneurysm and fistula with normal appearing flow within the hepatic branches. Lion Leahy MD Biopsy X-Ray 12/18/17 0000 Signed Impressions: Service Date/Time: December 14:47 - CONCLUSION: Uncomplicated fluoroscopic guided biliary forceps biopsy and internal/external drainage catheter exchange as described in detail above Landry Mitchell MD Cholangiogram 12/16/17 0000 Signed Impressions: Service Date/Time: Saturday, December 16, 2017 17:07 - CONCLUSION: There is no drainage catheter complication. The patient does not have significant accumulation of abdominal ascites along the liver surface to potentially exacerbate fluid leakage along the tube tract. The fluid drainage appears to be benign serosanguinous. Dressing changes p.r.n. recommended. Landry Mitchell MD Abdomen Ultrasound 12/14/17 0000 Signed Impressions: Service Date/Time: Thursday, December 14, 2017 09:01 - CONCLUSION: Limited study due to bandages on the abdomen and bowel gas. Focal fatty infiltration right lobe of liver again seen. Gallbladder appears collapsed. Minimal ascites. Jerry Laureano MD Abdomen X-Ray 12/13/17 0000 Signed Impressions: Service Date/Time: Wednesday, December 13, 2017 18:55 - CONCLUSION: Nothing acute demonstrated. Nonobstructive bowel gas pattern and no free air. Evidence of right upper quadrant surgery and a internal/external biliary drainage catheter again noted. Landry Ryan MD Head CT 12/09/17 0000 Signed Impressions: Service Date/Time: Saturday, December 09, 2017 20:02 - CONCLUSION: Negative noncontrast head CT. Landry Ryan MD Bile Duct Drainage 12/03/17 0000 Signed Impressions: Service Date/Time: Sunday, December 03, 2017 14:10 - CONCLUSION: Uncomplicated biliary stent placement as above. Bj Hurtado MD Cholangiopancreatography MRI 12/02/17 0000 Signed Impressions: Service Date/Time: Saturday, December 02, 2017 08:17 - CONCLUSION: 1. Significant dilatation of the intrahepatic ducts ending at the confluence and possibility of stricture at this site or a Klatskin's tumor which is not visualized should be entertained. 2. Wedge-shaped focal fat right hepatic lobe. Luz Jean MD Procedures 12/03: Biliary drain placement 12/04: Right IJ central line 12/04: Left femoral central line 12/04: Endotracheal intubation 12/04: Exploratory laparotomy 12/20: Forceps biopsy . Assessment and Plan Disease Oriented Problem List: (1) Pancreatitis (2) Anemia (3) Leukocytosis (4) Liver hemorrhage (5) Sepsis (6) Hypothyroidism (7) Polymyalgia rheumatica Symptom Scale: (1) Poor appetite 0-10 Scale: Unable to quantify (2) Abdominal pain 0-10 Scale: Unable to quantify Pertinent Non-Medical Issues Psychosocial:He was born and brought up in [place] where he completed high school and 2 years of college. Currently lives with his of 21 years. He has 3 children by his prior marriage, one boy and 2 girls all live in [place]. 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 They moved to [place] in August as his physician thought that a climate change might help his severe polymyalgia rheumatica, however he has seen no improvement so is planning to move back to [place], or [place] where his stepchildren live. Spiritual: Spirituality is important to him. 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 Legal: No previous living will or advanced directives completed, however had been discussed with his . Ethical issues impacting care: He is a little confused intermittently, however his is available and willing to act as decision-maker. . Important Contacts : Sandra Rios , cell . . 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 The pathology is pending and at this time no cancer has been diagnosed. He does have pancreatitis and sepsis which placed him at an increased risk of complications. He also suffered a liver laceration secondary to adhesions and a biliary drain placement requiring multiple blood transfusions. He is still having abdominal pain, elevated liver enzymes, increasing bilirubin and is jaundiced. He is now becoming confused. He is at risk of continued decline and recurrent hospitalizations. . Code Status: Full Code Plan PLAN: Legal decision maker: He is currently intubated so unable to participate in his decision making, however his is available and willing to act as decision-maker. Goals: Aggressive. CODE STATUS: FULL CODE SYMPTOMS: * Abdominal pain: Remains with left upper quadrant pain, reproducible to palpation, tenderness, with intermittent sharp pains. Biliary drain is patent. Oxycodone is scheduled 5 mg every 8 hours with morphine 1 mg, IV every 4 hours as needed for breakthrough pain or [place] 5/325 mg 1-2 tab every 4 hours as needed for pain. Scheduled meds have been held for lethargy. * Dyspnea: Now mechanically ventilated for worsening respiratory status. Solu- Medrol 60 mg every 12 hours, DuoNeb every 4 hours and as needed, antibiotics per ID. Ventilator management per compounding scaler service. Palliative care will continue to follow the patient during hospital course as condition evolves, to assist patient/decision-maker with understanding of their medical conditions, weighing benefits/burdens of treatment options, for clarification of goals of treatment. Additionally will assist with any symptoms of palliative concern. . Attestation To help prompt me to consider important information that might be impacting today's encounter and assessment, information from prior notes written by myself or my colleagues may have been "brought forward" into today's note. My signature on this note, however, is an attestation that I personally performed the exam, history, and/or decision-making noted today, and, unless otherwise indicated, the interactions with patient, family, and staff as well as the review of records all occurred today. I also attest that the listed assessment and stated plan reflect my best clinical judgment today based on the combination of historical information, prior notes, and today's exam/ interactions. When time spent is documented, it refers only to time spent today by the signer, or if indicated, combined time spent today by collaborating physician/nurse practitioner. . Nona Brown Dec 23, 2017 4:26 pm
[2017-12-23] MEDS: FLUCONAZOLE 400 MG PREMIX BAG 200 ML IV SCH (16:40)
--- NOTE | 2017-12-23 17:51 | RADRPT ---
EXAM DATE/TIME: 12/23/2017 17:21 [facility] COMPARISON: CT ABDOMEN & PELVIS W/O CONTRAST, December 22, 2017, 18:17. INDICATIONS : Abdomen pain. ORAL CONTRAST: Prescribed oral contrast ingested. RADIATION DOSE: 15.23 CTDIvol (mGy) MEDICAL HISTORY : Cardiovascular disease. Renal calculi. Gallstones SURGICAL HISTORY : Inguinal hernia repair. ENCOUNTER: Initial ACUITY: 1 day PAIN SCALE: 5/10 LOCATION: Bilateral abdomen TECHNIQUE: Volumetric scanning of the abdomen and pelvis was performed. Using automated exposure control and ad justment of the mA and/or kV according to patient size, radiation dose was kept as low as reasonably achievable to obtain optimal diagnostic quality images. DICOM format image data is available electro nically for review and comparison. FINDINGS: Comparison is December 22. Left pleural effusion slightly worse. Stable right effusion with bibasilar atelectasis. Evolving hepatic infarcts. Internal/external biliary drain unchanged. Slight worsening of presumed hemorrhagic pancreatitis which now measures 6.7 cm AP diameter compared with 6.2 cm yesterday. There is also some new fluid or hemorrhage anteriorly in the omental region. P erisplenic or subcapsular splenic fluid again noted fluid tracking down the left paracolic gutter. Re latively stable free fluid in the pelvis. Carmona catheter decompressed bladder. No loculated air collections seen to suggest a necrotizing process. There is air within the gallbladd er. CONCLUSION: 1. Slight worsening of presumed hemorrhagic pancreatitis with heterogeneous increased density in the pancreas. Measurements given above. Also increased fluid or hemorrhage anterior to the pancreas and s tomach in the omental region. 2. Slight worsening of left pleural effusion. 3. Stable right pleural effusion, perisplenic fluid and stable fluid in left paracolic gutter and pel vis. 4. Mild anasarca. Ronnie Dnois MD on December 23, 2017 at 17:40 Board Certified Radiologist. This report was verified electronically.
[2017-12-23 18:58] LABS: INTERNATIONAL NORMALIZED RATIO 1.6 RATIO; PROTHROMBIN TIME - PATIENT 16.3 SEC (9.8-11.6)
--- NOTE | 2017-12-23 18:59 | HHI.PR ---
Subjective Remarks 82 YOWM with VDRF,Pancreatitis, anemea,Leucocytosis Sedated with fentanyl Receiving PRBC No Fever Objective Vital Signs Vital Signs Date Time Temp Pulse Resp B/P (MAP) Pulse Ox O2 Delivery O2 Flow Rate FiO2 12/23/17 18:30 98.7 84 14 98/54 98 12/23/17 18:16 97.7 87 14 100/54 100 12/23/17 18:00 91 12/23/17 16:45 98.5 100 14 131/63 100 12/23/17 16:31 98.9 99 14 121/61 100 12/23/17 16:04 100 65 12/23/17 16:00 98.9 93 15 125/60 (81) 100 12/23/17 16:00 93 12/23/17 16:00 75 12/23/17 14:46 98.4 101 14 134/60 100 12/23/17 14:33 98.8 96 15 92/53 100 12/23/17 14:00 94 12/23/17 12:37 99 100 12/23/17 12:00 98.8 118 32 145/66 (92) 97 12/23/17 12:00 100 12/23/17 12:00 118 12/23/17 11:00 117 31 121/57 (78) 91 12/23/17 10:00 91 Nasal Cannula 6.00 12/23/17 10:00 110 12/23/17 10:00 110 29 117/58 (77) 91 12/23/17 09:00 104 24 93/52 (66) 93 12/23/17 08:38 95 Nasal Cannula 5.00 12/23/17 08:00 98.7 102 30 112/57 (75) 92 12/23/17 08:00 109 12/23/17 07:00 101 29 113/53 (73) 93 12/23/17 07:00 93 Nasal Cannula 4.00 12/23/17 04:00 98.5 100 31 118/57 (77) 93 12/23/17 00:00 99.0 104 33 127/65 (85) 93 12/22/17 21:22 98 Nasal Cannula 4.00 12/22/17 20:00 98.3 92 22 107/57 (74) 97 12/22/17 19:00 93 Nasal Cannula 4.00 I/O 12/22/17 12/22/17 12/22/17 12/23/17 12/23/17 12/23/17 07:00 15:00 23:00 07:00 15:00 23:00 Intake Total 290 ml 100 ml 2150 ml 699 ml 3018 ml Output Total 850 ml 200 ml 1100 ml 975 ml Balance -560 ml -100 ml 1050 ml 699 ml 2043 ml Intake Oral 240 ml 0 ml IV Total 50 ml 100 ml 2150 ml 689 ml 1723 ml FFP 805 ml Blood Product IV Normal Saline Flush 10 ml 90 ml Other 400 ml Output Urine Total 600 ml 200 ml 575 ml 725 ml Drainage Total 250 ml 525 ml 250 ml Bladder Scan Volume Amount 137 ml # Bowel Movements 0 0 Result Diagram: 12/23/17 1300 12/23/17 0613 Objective Remarks GENERAL:Elderly male on Vent SKIN: Warm and dry. HEAD: Normocephalic. EYES:Deep Jaundice. No injection or drainage. NECK: Supple, trachea midline. No JVD or lymphadenopathy. CARDIOVASCULAR: Regular rate and rhythm without murmurs, gallops, or rubs. RESPIRATORY: Breath sounds equal bilaterally. No accessory muscle use. GASTROINTESTINAL: Abdomen soft, non-tender, nondistended. MUSCULOSKELETAL: No cyanosis, or edema. BACK: Nontender without obvious deformity. No CVA tenderness. A/P Assessment and Plan VDRF Pancreatitis Anemea Leucocytosis Jaundice PLAN: Vent support Sedation with Fentanyl Cont Abx PRBC Monitor H/H Darshan Leos MD Dec 23, 2017 18:59
[2017-12-23] MEDS ORDERED: CHLORHEXIDINE 0.12% (ORAL KIT) 15 ML CUP MT SCH (20:00)
[2017-12-24] VITALS (22 sets, daily range): BP systolic 108–146; BP diastolic 54–66; PULSE 67–91; RESP 5–16; TEMP 97.9–100.8; O2SAT 96–100
[2017-12-24 00:14] LABS: HEMATOCRIT 23.8 % (39.0-51.0); HEMOGLOBIN 7.9 GM/DL (13.0-17.0); MEAN CELL VOLUME 87.6 FL (80.0-100.0); MEAN CORPUSCULAR HEMOGLOBIN 29.3 PG (27.0-34.0); MEAN CORPUSCULAR HGB CONC 33.4 % (32.0-36.0); MEAN PLATELET VOLUME 10.2 FL (7.0-11.0); PLATELET COUNT 80 TH/MM3 (150-450); RED BLOOD COUNT 2.71 MIL/MM3 (4.50-5.90); RED CELL DISTRIBUTION WIDTH 16.5 % (11.6-17.2); WHITE BLOOD COUNT 32.1 TH/MM3 (4.0-11.0)
[2017-12-24] MEDS: metroNIDAZOLE 500 MG INJ 100 ML IV SCH ×2 (01:14→10:12)
[2017-12-24] MEDS: CHLORHEXIDINE GLUCONATE 2 % 1 PACK (2 CLOTHS)(taper/protocol) TOPICAL SCH (03:27)
[2017-12-24] MEDS: RESP: ALBUTEROL 2.5 MG/IPRATROPIUM 0.5 MG NEB (SCH) NEB ×6 (03:38→23:27)
--- NOTE | 2017-12-24 04:17 | RADRPT ---
EXAM DATE/TIME: 12/24/2017 03:03 [facility] COMPARISON: CHEST SINGLE AP, December 23, 2017, 12:22. INDICATIONS : Shortness of breath. MEDICAL HISTORY : Cardiovascular disease. Renal calculi. Gallstones SURGICAL HISTORY : Inguinal hernia repair. ENCOUNTER: Subsequent ACUITY: 3 weeks PAIN SCORE: Non-responsive. LOCATION: Bilateral chest FINDINGS: Endotracheal tube tip is at the level of the abelardo and needs to be withdrawn at least 2 cm. Right i nternal jugular catheter tip projects in the right atrium. Increasing consolidative opacities in the central and lower lungs bilaterally, left greater than right. There is loss of delineation of the l eft hemidiaphragm. CONCLUSION: 1. ET tube tip is at the abelardo and needs to be withdrawn 2 cm. 2. Increasing bilateral parenchymal infiltrates with consolidation in the left lower lobe. Jung Cevallos MD on December 24, 2017 at 4:14 Board Certified Radiologist. This report was verified electronically.
[2017-12-24 04:48] LABS: HEMATOCRIT 23.6 % (39.0-51.0); MEAN CELL VOLUME 88.3 FL (80.0-100.0); MEAN CORPUSCULAR HEMOGLOBIN 29.9 PG (27.0-34.0); MEAN CORPUSCULAR HGB CONC 33.8 % (32.0-36.0); MEAN PLATELET VOLUME 10.2 FL (7.0-11.0); PLATELET COUNT 78 TH/MM3 (150-450); RED BLOOD COUNT 2.67 MIL/MM3 (4.50-5.90); WHITE BLOOD COUNT 30.6 TH/MM3 (4.0-11.0)
[2017-12-24] MEDS: SODIUM CHLOR 0.9% 1000 ML INJ 1,000 ML IV SCH ×3 (05:14→21:31)
[2017-12-24 05:15] LABS: ALKALINE PHOSPHATASE 112 U/L (45-117); ALT (GPT) 103 U/L (12-78); TOTAL BILIRUBIN ADULT 9.7 MG/DL (0.2-1.0); TOTAL PROTEIN 5.2 GM/DL (6.4-8.2)
[2017-12-24] MEDS: fentaNYL DRIP 250 ML IV PRN ×2 (05:16→21:27)
[2017-12-24] MEDS: LEVOTHYROXINE SODIUM 100 MCG TAB PO SCH (05:16)
[2017-12-24 05:32] LABS: ALBUMIN 2.5 GM/DL (3.4-5.0); AST (GOT) 91 U/L (15-37); BICARBONATE 33.7 MEQ/L (21.0-32.0); BLOOD UREA NITROGEN 39 MG/DL (7-18); CHLORIDE 107 MEQ/L (98-107); CREATININE 1.47 MG/DL (0.60-1.30); GLOMERULAR FILTRATION RATE 46 ML/MIN (>89); GLUCOSE,RANDOM 160 MG/DL (74-106); MAGNESIUM 2.1 MG/DL (1.5-2.5); SODIUM (NA) 147 MEQ/L (136-145)
[2017-12-24 07:09] LABS: BANDS 2 % (0-6); LYMPHOCYTES 4 % (9-44); MONOCYTES 6 % (0-8); NEUTROPHIL # MANUAL DIFF 27.5 TH/MM3 (1.8-7.7); POLYS (SEG NEUTROPHILS) 88 % (16-70)
[2017-12-24 07:11] LABS: OVALOCYTES 1+ (NORMAL)
[2017-12-24] MEDS: RESP: BUDESONIDE 0.5 MG/2 ML NEB NEB SCH ×2 (07:56→20:09)
[2017-12-24] MEDS: CHLORHEXIDINE 0.12% (ORAL KIT) 15 ML CUP MT SCH ×2 (08:00→20:00)
[2017-12-24] MEDS: SODIUM CHLORIDE 0.9% FLUSH 10 ML FLUSH IV FLUSH SCH ×2 (08:42→21:26)
[2017-12-24] MEDS: MEROPENEM INJ 1,000 MG in SODIUM CHLORIDE 0.9% INJ 100 ML IV SCH ×2 (08:42→21:00)
[2017-12-24] MEDS: SODIUM CHLORIDE 0.9% FLUSH 10 ML FLUSH IV FLUSH PRN (08:42)
[2017-12-24] MEDS: PANTOPRAZOLE SODIUM 40 MG VIAL IV PUSH SCH (08:43)
[2017-12-24] MEDS: methylPREDNISolone SOD SUCC 125 MG/2 ML VIAL IV PUSH SCH ×2 (08:43→21:25)
[2017-12-24] MEDS: FINASTERIDE 5 MG TAB PO SCH (08:43)
[2017-12-24] MEDS: URSODIOL 300 MG CAP PO SCH ×2 (08:44→21:25)
[2017-12-24] MEDS: POTASSIUM CHLORIDE 20 MEQ CONTROLLED RELEASE TAB PO SCH (08:44)
[2017-12-24] MEDS: DOCUSATE SODIUM 50 MG/SENNA 8.6 MG TAB PO SCH (08:44)
[2017-12-24] MEDS: LACTULOSE SYRUP 20 GM/30 ML CUP PO SCH (08:44)
--- NOTE | 2017-12-24 10:38 | HHI.FPPN ---
Subjective Remarks Mr Rios had no acute events overnight. He is sedated and intubated on 200mcg/ hr fentanyl with vent settings 14bpm/8PEEP/50%FiO2. He is off pressors. His reports his three children plan to come this weekend. She brought in her HCPOA paperwork. 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 We discussed his CT abdomen and the pancreatitis due to his biliary system not working properly. She plans to continue aggressive measures for now and has talked to Palliative Care. Nursing reports he can follow a few simple commands. (Pascual Valero MD R1) Objective Vitals Vital Signs Date Time Temp Pulse Resp B/P (MAP) Pulse Ox O2 Delivery O2 Flow Rate FiO2 12/24/17 10:00 91 12/24/17 09:50 40 12/24/17 09:00 76 14 129/65 (86) 99 12/24/17 08:00 79 12/24/17 08:00 100.8 79 14 118/56 (76) 98 12/24/17 08:00 50 12/24/17 07:57 97 50 12/24/17 07:00 72 15 112/56 (74) 98 12/24/17 04:35 97 50 12/24/17 04:00 50 12/24/17 04:00 98.4 74 14 109/54 (72) 97 12/24/17 01:15 97 50 12/24/17 00:00 98.6 83 14 122/64 (83) 97 12/24/17 00:00 50 12/23/17 22:24 98 60 12/23/17 21:07 98.7 86 14 118/62 98 12/23/17 20:53 99.0 81 26 113/55 99 12/23/17 20:00 60 12/23/17 20:00 99.0 82 14 122/57 (78) 99 12/23/17 19:25 99 60 12/23/17 19:00 97 Mechanical Ventilator 60 12/23/17 18:30 98.7 84 14 98/54 98 12/23/17 18:16 97.7 87 14 100/54 100 12/23/17 18:00 91 14 106/56 (73) 99 12/23/17 18:00 91 12/23/17 17:00 97 15 122/57 (78) 100 12/23/17 16:45 98.5 100 14 131/63 100 12/23/17 16:31 98.9 99 14 121/61 100 12/23/17 16:04 100 65 12/23/17 16:00 98.9 93 15 125/60 (81) 100 12/23/17 16:00 93 12/23/17 16:00 75 12/23/17 15:00 96 17 121/59 (79) 100 12/23/17 14:46 98.4 101 14 134/60 100 12/23/17 14:33 98.8 96 15 92/53 100 12/23/17 14:00 94 12/23/17 14:00 94 14 66/34 (45) 99 12/23/17 13:00 107 14 95/51 (66) 98 12/23/17 12:37 99 100 12/23/17 12:00 98.8 118 32 145/66 (92) 97 12/23/17 12:00 100 12/23/17 12:00 118 12/23/17 11:00 117 31 121/57 (78) 91 I/O 12/23/17 12/23/17 12/23/17 12/24/17 12/24/17 12/24/17 07:00 15:00 23:00 07:00 15:00 23:00 Intake Total 2150 ml 699 ml 3618 ml 1912 ml 100 ml Output Total 1100 ml 975 ml 900 ml Balance 1050 ml 699 ml 2643 ml 1012 ml 100 ml Intake Oral 0 ml 0 ml IV Total 2150 ml 689 ml 1823 ml 1402 ml 100 ml Packed Cells 400 ml 400 ml FFP 805 ml Blood Product IV Normal Saline Flush 10 ml 190 ml 50 ml Other 400 ml 60 ml Output Urine Total 575 ml 725 ml 675 ml Drainage Total 525 ml 250 ml 225 ml # Bowel Movements 0 0 (Pascual Valero MD R1) Result Diagram: 12/24/17 0432 12/24/17 0432 Imaging Last 48 hours Impressions Chest X-Ray 12/24/17 0600 Signed Impressions: Service Date/Time: Sunday, December 24, 2017 03:03 - CONCLUSION: 1. ET tube tip is at the abelardo and needs to be withdrawn 2 cm. 2. Increasing bilateral parenchymal infiltrates with consolidation in the left lower lobe. Jung Cevallos MD Upper Extremity Ultrasound 12/23/17 0000 Signed Impressions: Service Date/Time: Saturday, December 23, 2017 13:09 - CONCLUSION: 1. Positive for superficial thrombus in the left cephalic vein. No deep venous thrombosis. Ronnie Donis MD Chest X-Ray 12/23/17 0000 Signed Impressions: Service Date/Time: Saturday, December 23, 2017 12:22 - CONCLUSION: 1. Status post placement of an endotracheal tube and right-sided central line. 2. No evidence of pneumothorax. 3. Scattered bibasilar infiltrates. Nathen Ruano MD Abdomen/Pelvis CT 12/23/17 0000 Signed Impressions: Service Date/Time: Saturday, December 23, 2017 17:21 - CONCLUSION: 1. Slight worsening of presumed hemorrhagic pancreatitis with heterogeneous increased density in the pancreas. Measurements given above. Also increased fluid or hemorrhage anterior to the pancreas and stomach in the omental region. 2. Slight worsening of left pleural effusion. 3. Stable right pleural effusion, perisplenic fluid and stable fluid in left paracolic gutter and pelvis. 4. Mild anasarca. Ronnie Donis MD Objective Remarks GENERAL: Ill-appearing, jaundiced, lying in bed, right eye partially open; intubated and sedated on fentanyl and versed SKIN: No lesions. Jaundiced. Ecchymosis at LLQ below umbilicus ([place] Sign). HEAD: Normocephalic. Atraumatic. EYES: Mild scleral icterus. No injection or drainage. CARDIOVASCULAR: Regular rate and rhythm without murmur, gallop, or rub. RESPIRATORY: Distant breath sounds, on ventilator with vent set at 14bpm/8 PEEP/ 50% FiO2 GASTROINTESTINAL: Abdomen obese, tympanitic, distended, exquisitely tender to palpation with guarding. BS hypoactive. No guarding. Transverse laparotomy scar over RUQ closed with steri-strips, c/d/i with no induration or fluctuance. Biliary drain in place on right lateral abdomen with small amount of green bilious drainage inside the drain bag. EXTREMITIES: No cyanosis. SCDs in place. NEUROLOGICAL: Intubated and sedated; can follow a few simple commands Procedures 12/02/17 - MRCP 12/03/17 - Biliary drainage with percutaneous cholangiogram 12/04/17 - Exploratory laparotomy, liver laceration repair 12/14/17 - Cholangiogram 12/16/17 - Cholangiogram 12/18/17 - Cholangiogram with catheter change and biopsy of intrahepatic biliary duct at stricture and biopsy of mass 12/20/17 - Embolization of Right Hepatic Lobe under IR guidance Medications and IVs Current Medications Medications (Trade) Dose Ordered Sig/Rafa Route Start Time Stop Time Status Last Admin (NS Flush) 2 ml UNSCH PRN IV FLUSH 12/01/17 11:00 12/24/17 08:42 (NS Flush) 2 ml BID IV FLUSH 12/01/17 21:00 12/24/17 08:42 (Zofran Inj) 4 mg Q6H PRN IVP 12/01/17 11:00 12/16/17 06:18 ([place]on 5-325 Mg) 1 tab Q4H PRN PO 12/01/17 11:00 ([place] 10-325 Mg) 1 tab Q4H PRN PO 12/01/17 11:00 12/22/17 13:24 (Narcan Inj) 0.4 mg UNSCH PRN IV PUSH 12/01/17 11:00 (Deedee-Colace) 1 tab BID PO 12/01/17 21:00 12/24/17 08:44 (Milk Of Magnesia Liq) 30 ml Q12H PRN PO 12/01/17 11:00 12/09/17 05:20 (Senokot) 17.2 mg Q12H PRN PO 12/01/17 11:00 (Dulcolax Supp) 10 mg DAILY PRN RECTAL 12/01/17 11:00 (Lactulose Liq) 30 ml DAILY PRN PO 12/01/17 11:00 (Proscar) 5 mg DAILY PO 12/02/17 09:00 Future hold 12/24/17 08:43 (Deltasone) 5 mg DAILY PO 12/02/17 09:00 Future Hold 12/15/17 11:52 (Peridex 0.12% Liq) 15 ml BID@08,20 MT 12/04/17 08:00 12/23/17 20:00 Fluconazole/ Sodium Chloride 200 ml @ 100 mls/hr Q24H IV 12/06/17 17:00 12/23/17 16:40 (Albuterol Neb) 2.5 mg Q2HR NEB PRN NEB 12/05/17 22:00 12/23/17 10:07 (Synthroid) 100 mcg DAILY@0600 PO 12/08/17 06:00 12/24/17 05:16 (Tylenol) 500 mg Q6H PRN PO 12/08/17 08:30 (Protonix Inj) 40 mg DAILY IV PUSH 12/10/17 09:00 12/24/17 08:43 (Lactulose Liq) 30 ml DAILY PO 12/11/17 09:00 12/24/17 08:44 (Pulmicort Respule Neb) 0.5 mg Q12HR NEB NEB 12/12/17 09:45 12/24/17 07:56 (KCl) 20 meq DAILY PO 12/14/17 09:00 12/24/17 08:44 (Actigall) 300 mg Q12HR PO 12/13/17 21:00 12/24/17 08:44 Albumin Human 50 ml @ 60 mls/hr Q12H IV 12/14/17 12:00 12/23/17 23:22 (Lasix Inj) 20 mg DAILY@1215 IV PUSH 12/14/17 12:15 Future Hold 12/22/17 12:13 (Morphine Inj) 1 mg Q4H PRN IV PUSH 12/15/17 16:15 (Roxicodone) 5 mg Q8H PO 12/18/17 17:00 12/24/17 08:43 (Pill Splitter) 1 ea UNSCH PRN OTHER 12/20/17 10:30 (Deltasone) 40 mg BID PO 12/20/17 21:00 Future Hold 12/22/17 09:00 (NS Flush) 2 ml UNSCH PRN IV FLUSH 12/21/17 07:45 12/24/17 08:42 (Lopressor) 37.5 mg Q8HR PO 12/21/17 14:00 Future Hold 12/22/17 13:23 (SoluMEDROL INJ) 60 mg Q12HR IV PUSH 12/22/17 12:15 12/24/17 08:43 Metronidazole 100 ml @ 100 mls/hr Q8H IV 12/22/17 18:00 12/24/17 10:12 Miscellaneous Information Patient in critical care unit? Ass... [id number] .XX 12/22/17 19:30 12/22/17 19:30 (Chlorhexidine 2% Cloth) 3 pack DAILY@04 TOPICAL 12/23/17 04:00 12/27/17 04:01 12/24/17 03:27 (Chlorhexidine 2% Cloth) 3 pack UNSCH PRN TOPICAL 12/22/17 19:30 12/27/17 19:19 Meropenem 1000 mg/ Sodium Chloride 100 ml @ 200 mls/hr Q12H IV 12/22/17 21:00 12/24/17 08:42 Sodium Chloride 1,000 ml @ 100 mls/hr Q10H IV 12/22/17 23:30 12/23/17 19:30 Propofol 100 ml @ 2.325 mls/ hr TITRATE PRN IV 12/23/17 12:30 Fentanyl Citrate 250 ml @ 5 mls/hr TITRATE PRN IV 12/23/17 12:30 12/24/17 05:16 Midazolam HCl 100 ml @ 2 mls/hr TITRATE PRN IV 12/23/17 12:30 (Duoneb Neb) 1 ampule Q4HR NEB NEB 12/23/17 16:00 12/24/17 07:56 Norepinephrine Bitartrate 250 ml @ 7.5 mls/hr TITRATE PRN IV 12/23/17 14:15 (Pascual Valero MD R1) Urinary Catheter: Yes Carmona insert reason: End of Life (Pascual Valero MD R1) A/P Assessment and Plan 82 yo male with h/o PMR, BPH, hyperlipidemia presented with RUQ pain and UTI and 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 Following IR biliary stent and drainage on 12/03, pt found to have liver laceration and hemorrhage causing hemoperitoneum. Exploratory laparotomy performed emergently on 12/04 requiring 6u PRBCs, 1u FFP and 1u Cryo with EBL 2L. Following surgery, pt was sent to ICU for management and showed improvement but still with persistently elevated WBC. He was found to have pancreatitis on CT scan but lipase and amylase were not elevated. His biliary drain was investigated on 12/16/16 due to leaking and was found to be working properly. 12/19: Given 1uPRBCs from blood loss anemia 12/17 w/Hgb 6.8 and H/H improved to 8.1/24.5. Today H/H 7.3/22.7; will do f/u H/H 1PM and will transfuse 1uPRBCs if <7.0. BP elevated to 161/93, confused overnight and incontinent of urine. Getting scheduled oxycodone q8h for pain control now and pt w/o complaint for pain. IR took biopsies of stricture and mass surrounding stricture yesterday and we are awaiting results to consider further workup. Pt appears to be improved wrt RR but still using accessory muscles of neck; is not clammy today; and is resting more comfortably. CXR shows some improvement in PNA. Continues to be afebrile and WBC reduced to 20.6 today. Vanc trough 13.7; continue Zosyn, Vanc, levaquin and diflucan; ID and GI consulted. 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 Discussed with general surgeon Winston who suspects that the fluid pooling is a small bleed from the catheter exchange. He will discuss with IR on Friday to go over all scans/ tests and come up with a plan. Also spoke with IR Dr. Leahy, who states that he would evaluate the scans and will make a decision on the next steps. 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 Pt received 1uPRBCs early this morning with follow-up H/H indicating pt is hemodynamically stable at 8.7/26.1. Morning labs indicate rising H/H at 9.0/ 27.1. Hypernatremia resolved at 142 this morning. LFTs and Tbili still trending upward, likely 2/2 blood loss--will look to trend down hopefully from here. Pt slight jaundiced as a result w/mild scleral icterus. CXR this morning showing moderate CHF progression--adding one time Lasix 20mg IV to scheduled dosage due to having received blood products, reduce cardiac afterload, and reduce WOB. We had nursing flush his biliary drain which appeared to be clogged with dark fluid ; once flushed, began draining light green bilious fluid. 12/22: Pt with increase work of breathing and wheezing, improved on reexamination after steroids and Lasix. His reports that he has been asking to go home. His nurse reports that he has been refusing some medications. Pulmonology consulted for further recommendations. 12/23: Patient lying in bed, very tender to palpation of his abdomen. Respirations appear nonlabored 12/24: Pt intubated and sedated on 200mcg/hr fentanyl and versed on vent with settings 14bpm/8 PEEP/50%FiO2. CT abdomen/pelvis shows hemorrhagic pancreatitis w/increased pancreatic density and increased fluid collection anterior to the pancreas. Also a left pleural effusion, anasarca, and splenic fluid collection. Lasix is being held. His is requesting aggressive measures. His children will arrive this weekend. Palliative Care has visited with the and is following. Pt with poor prognosis and is not a surgical candidate at this time. DW Dr Landry Discharge Planning Anticipate discharge once patient is clinically stable, time frame unclear. (Pascual Valero MD R1) Attending Attestation Patient seen and examined. Case reviewed and discussed Agree with plan of care as discussed with me and documented in the resident note. Remains in critical status. at the bedside. Spoke with GI, will plan for stat bleeding scan and IR to readjust biliary drain. Repeat hgb, INR pending. (Elena Landry MD) Problem List: (1) Pancreatitis ICD Codes: K85.90 - Acute pancreatitis without necrosis or infection, unspecified (2) Leukocytosis ICD Codes: D72.829 - Elevated white blood cell count, unspecified Status: Acute Plan: Originally considered a Leukemoid rxn with WBCs in 35-50 range; however, Heme/onc believed to be infection and since broadening of abx, WBC has previously decreased to 20.6. WBC decreased from 55 to 30 overnight. Continue Merrem. -ID on board, currently on meropenem 1000 mg IV every 12 hours (12/23/17 - ) -Continue fluconazole 400 mg IV every 24 hours (12/06/17 - ) (3) Anemia ICD Codes: D64.9 - Anemia, unspecified Plan: Stable, no active bleeding Pt s/p 1 unit of packed RBCs on 12/21 and 12/23 -H/H 8.0 on 12/24 --> repeat H/H in the afternoon -Plan to transfuse if Hgb <7.0 (4) Liver hemorrhage ICD Codes: K76.89 - Other specified diseases of liver Status: Acute Plan: -S/P ex lap on 12/04 for liver laceration; continues to have blood loss from unknown source -CT abdomen/pelvis performed on 12/23 shows slight worsening of pancreatitis with increase in diameter and new free fluid in the pelvis, probable hepatic infarcts with internal/external biliary drain -Continue metoprolol to 37.5 mg by mouth every 8 hours in order to maintain SBP less than 140 BPM -Continue pain control -Continue to monitor with CBC in morning labs; will transfuse 1uPRBCs if Hgb < 7.0 as above (5) Pneumonia ICD Codes: J18.9 - Pneumonia, unspecified organism Plan: Pneumonia vs atelectasis on CXR. Afebrile, respiratory rate intermittently increased. Continue antibiotics as below. -Pulmonology consulted for additional recommendations regarding management, appreciate recommendations. -Will increase steroids: Solumedrol 60mg IV BID -Duonebs q4h scheduled while awake -Continue albuterol nebs q2h PRN -Pulmicort 0.5mg nebs Imaging: AP CXR 12/23/17: Bilateral parenchymal infiltrates with consolidation of LLL AP CXR 12/22/17: Basilar and perihilar airspace consolidation similar to December 21 with small effusions AP CXR 12/21/17: Moderate CHF progression on CXR 12/21/17 PA/LAT CXR 12/16/17 : Mild hazy density in the right lung and left base Stable pulmonary infiltrates on 12/19 Antibiotic history: -Zosyn 3.375 g IV every 6 hours (12/01/17 -12/22/17) -Vancomycin IV (stopped 12/18/17) -Levaquin 750mg IV Daily (12/15-12/22/17) (6) Elevated liver enzymes ICD Codes: R74.8 - Abnormal levels of other serum enzymes Plan: Concern for malignancy Bile duct biopsy preformed on 12/18/2017: Benign liver tissue, fibromuscular tissue, and an aggregate of reactive appearing bile duct epithelium, negative for fungal organisms Additional workup per GI, so far unremarkable Pt status post biliary drain placed by IR (7) Abdominal pain ICD Codes: R10.9 - Unspecified abdominal pain Status: Acute Plan: Stable -12/24: No change -12/23: Tender to light palpation with guarding -12/22: Abdominal pain stable -12/21: pt with no complaint of pain this morning. BP elevated to 150/89-- Metoprolol 37.5mg as above -12/20: BP intermittently elevated to 156/77, patient tender to palpation of abdomen. Catheter exchange and biopsy performed on 12/18. -12/19: BP elevated overnight to 169/93 but pt not complaining of abdominal pain ; consider hypovolemia/anemia for source of BP elevation -12/18: Cholangiogram and biopsies of stricture and mass outside the stricture; await pathology results; scheduled oxycodone q8h started due to elevated BPs. -IR re-assessed biliary drain on 12/16/16 and it was determined to be working properly; cholangiogram and -GI awaiting results of tumor bx before proceeding further * No plan for EUS until resolution of pancreatitis [place] and morphine IV as needed for pain CT findings as below MRCP findings as below Imaging: CT abdomen/pelvis:12/23/17: slight worsening of pancreatitis with increase in diameter and new free fluid in the pelvis, probable hepatic infarcts with internal/external biliary drain CT of the abdomen and pelvis: 12/19/17: 1. Progression in the extensive acute pancreatitis. No hemorrhage or infarction of the pancreas observed. 2. 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 This is new from the prior study. CT of the abdomen and pelvis: 12/04/17: Moderate volume hemoperitoneum. Interval placement of a right internal/external earlier a drainage catheter. Drain good position. CT of the abdomen and pelvis: 12/11/17: 1. Interval development of diffuse pancreatitis. Diffuse inflammatory changes surrounding the pancreas. 2. Previously noted fluid adjacent to the liver has resolved. 3. Internal/external biliary drainage catheter in place which appears to be in good position and unchanged in position compared to the prior study. 4. Small amount of free fluid deep in the pelvis. 5. Small bilateral pleural effusions. MRCP: 12/02/17: Significant dilation of the intrahepatic ducts ending in the confluence and possibility of stricture at the site or a lack since tumor which is not visualized should be entertained. Wedge-shaped focal fat right hepatic lobe (8) Hypothyroidism ICD Codes: E03.9 - Hypothyroidism, unspecified Status: Chronic Plan: Continue home Synthroid 100 mcg daily (9) Polymyalgia rheumatica ICD Codes: M35.3 - Polymyalgia rheumatica Status: Chronic Plan: On high-dose IV steroids Home prednisone dose is 5 mg by mouth daily (10) BPH (benign prostatic hyperplasia) ICD Codes: N40.0 - Benign prostatic hyperplasia without lower urinary tract symptoms Status: Chronic Plan: -Continue home finasteride (11) FEN/PPX Plan: Fluids: Managed by critical care, normal saline at 100 mL per hour Electrolytes: Monitor and replace PRN Nutrition: Regular diet: mechanical soft, nectar thick DVT: SCDs, holding pharmacologic prophylaxis due to acute bleed (Pascual Valeor MD R1) Problem Qualifiers (1) Leukocytosis: Qualified Codes: D72.829 - Elevated white blood cell count, unspecified (2) Abdominal pain: Qualified Codes: R10.11 - Right upper quadrant pain (3) Hypothyroidism: Qualified Codes: E03.9 - Hypothyroidism, unspecified Pascual Valero MD R1 Dec 24, 2017 10:38 Elena Landry MD Dec 24, 2017 16:00
[2017-12-24] MEDS ORDERED: MAGNESIUM HYDROXIDE SUSP 30 ML CUP OG-TUBE PRN (11:00)
[2017-12-24] MEDS ORDERED: ACETAMINOPHEN 500 MG CPLT OG-TUBE PRN (11:00)
[2017-12-24] MEDS ORDERED: SENNOSIDES 8.6 MG TAB OG-TUBE PRN (11:00)
[2017-12-24] MEDS ORDERED: ACETAMINOPHEN/HYDROcodone 325 MG/5 MG TAB OG-TUBE PRN (11:00)
[2017-12-24] MEDS ORDERED: LACTULOSE SYRUP 20 GM/30 ML CUP OG-TUBE PRN (11:00)
[2017-12-24] MEDS ORDERED: ACETAMINOPHEN/HYDROcodone 325 MG/10 MG TAB OG-TUBE PRN (11:00)
[2017-12-24] MEDS: ALBUMIN 25% INJ 50 ML IV SCH (11:58)
--- NOTE | 2017-12-24 14:19 | HHI.GIFU ---
Subjective Remarks Pt in bed, intubated. Rouses to light abd palpation, very tender. (Kim Apodaca) Objective Vitals I&O Vital Signs Date Time Temp Pulse Resp B/P (MAP) Pulse Ox O2 Delivery O2 Flow Rate FiO2 12/24/17 12:00 40 12/24/17 12:00 72 12/24/17 12:00 97.9 72 14 108/56 (73) 97 12/24/17 11:33 96 40 12/24/17 11:07 50 12/24/17 11:00 90 5 130/57 (81) 96 12/24/17 10:00 91 12/24/17 10:00 91 16 146/66 (92) 97 12/24/17 09:50 40 12/24/17 09:50 40 12/24/17 09:00 76 14 129/65 (86) 99 12/24/17 08:00 79 12/24/17 08:00 100.8 79 14 118/56 (76) 98 12/24/17 08:00 50 12/24/17 07:57 97 50 12/24/17 07:00 72 15 112/56 (74) 98 12/24/17 04:35 97 50 12/24/17 04:00 50 12/24/17 04:00 98.4 74 14 109/54 (72) 97 12/24/17 01:15 97 50 12/24/17 00:00 98.6 83 14 122/64 (83) 97 12/24/17 00:00 50 12/23/17 22:24 98 60 12/23/17 21:07 98.7 86 14 118/62 98 12/23/17 20:53 99.0 81 26 113/55 99 12/23/17 20:00 60 12/23/17 20:00 99.0 82 14 122/57 (78) 99 12/23/17 19:25 99 60 12/23/17 19:00 97 Mechanical Ventilator 60 12/23/17 18:30 98.7 84 14 98/54 98 12/23/17 18:16 97.7 87 14 100/54 100 12/23/17 18:00 91 14 106/56 (73) 99 12/23/17 18:00 91 12/23/17 17:00 97 15 122/57 (78) 100 12/23/17 16:45 98.5 100 14 131/63 100 12/23/17 16:31 98.9 99 14 121/61 100 12/23/17 16:04 100 65 12/23/17 16:00 98.9 93 15 125/60 (81) 100 12/23/17 16:00 93 12/23/17 16:00 75 12/23/17 15:00 96 17 121/59 (79) 100 12/23/17 14:46 98.4 101 14 134/60 100 12/23/17 14:33 98.8 96 15 92/53 100 12/23/17 14:00 94 12/23/17 14:00 94 14 66/34 (45) 99 I/O 12/23/17 12/23/17 12/23/17 12/24/17 12/24/17 12/24/17 07:00 15:00 23:00 07:00 15:00 23:00 Intake Total 2150 ml 699 ml 3618 ml 1912 ml 200 ml Output Total 1100 ml 975 ml 900 ml Balance 1050 ml 699 ml 2643 ml 1012 ml 200 ml Intake Oral 0 ml 0 ml 0 ml IV Total 2150 ml 689 ml 1823 ml 1402 ml 200 ml Packed Cells 400 ml 400 ml FFP 805 ml Blood Product IV Normal Saline Flush 10 ml 190 ml 50 ml Other 400 ml 60 ml Output Urine Total 575 ml 725 ml 675 ml Drainage Total 525 ml 250 ml 225 ml # Bowel Movements 0 0 1 Laboratory Laboratory Tests Test 12/23/17 18:04 12/23/17 23:58 12/24/17 04:32 Prothrombin Time 16.3 Prothromb Time International Ratio 1.6 White Blood Count 32.1 30.6 Red Blood Count 2.71 2.67 Hemoglobin 7.9 8.0 Hematocrit 23.8 23.6 Mean Corpuscular Volume 87.6 88.3 Mean Corpuscular Hemoglobin 29.3 29.9 Mean Corpuscular Hemoglobin Concent 33.4 33.8 Red Cell Distribution Width 16.5 17.0 Platelet Count 80 78 Mean Platelet Volume 10.2 10.2 CBC Comment AUTO DIFF Differential Total Cells Counted 100 Neutrophils % (Manual) 88 Band Neutrophils % 2 Lymphocytes % 4 Monocytes % 6 Neutrophils # (Manual) 27.5 Differential Comment FINAL DIFF MANUAL Platelet Estimate LOW Platelet Morphology Comment NORMAL Basophilic Stippling MOD Ovalocytes 1+ Blood Urea Nitrogen 39 Creatinine 1.47 Random Glucose 160 Total Protein 5.2 Albumin 2.5 Calcium Level 9.0 Magnesium Level 2.1 Alkaline Phosphatase 112 Aspartate Amino Transf (AST/SGOT) 91 Alanine Aminotransferase (ALT/SGPT) 103 Total Bilirubin 9.7 Sodium Level 147 Potassium Level 3.5 Chloride Level 107 Carbon Dioxide Level 33.7 Anion Gap 6 Estimat Glomerular Filtration Rate 46 Date/Time Source Procedure Growth Status 12/22/17 20:20 Blood Peripheral Aerobic Blood Culture - Preliminary NO GROWTH IN 2 DAYS Resulted 12/22/17 20:20 Blood Peripheral Anaerobic Blood Culture - Preliminary NO GROWTH IN 2 DAYS Resulted 12/04/17 00:42 Fluid Bile Fluid Gram Stain - Final Complete 12/04/17 00:42 Body Fluid Culture - Final Marielle Albicans Complete 12/20/17 05:13 Stool Stool Stool Occult Blood (RADHA) - Final HEMOCCULT POSITIVE Complete 12/23/17 02:54 Urine Catheterized Urine Urine Culture Pending Received 12/14/17 00:30 Wound Abdomen Gram Stain - Final Complete 12/14/17 00:30 Wound Abdomen Wound Culture - Final NO GROWTH IN 72 HRS.--AEROBICALLY OR ... Complete Imaging Last Impressions Chest X-Ray 12/24/17 0600 Signed Impressions: Service Date/Time: Sunday, December 24, 2017 03:03 - CONCLUSION: 1. ET tube tip is at the abelardo and needs to be withdrawn 2 cm. 2. Increasing bilateral parenchymal infiltrates with consolidation in the left lower lobe. Jung Cevallos MD Upper Extremity Ultrasound 12/23/17 0000 Signed Impressions: Service Date/Time: Saturday, December 23, 2017 13:09 - CONCLUSION: 1. Positive for superficial thrombus in the left cephalic vein. No deep venous thrombosis. Ronnie Donis MD Abdomen/Pelvis CT 12/23/17 0000 Signed Impressions: Service Date/Time: Saturday, December 23, 2017 17:21 - CONCLUSION: 1. Slight worsening of presumed hemorrhagic pancreatitis with heterogeneous increased density in the pancreas. Measurements given above. Also increased fluid or hemorrhage anterior to the pancreas and stomach in the omental region. 2. Slight worsening of left pleural effusion. 3. Stable right pleural effusion, perisplenic fluid and stable fluid in left paracolic gutter and pelvis. 4. Mild anasarca. Ronnie Donis MD Celiac/Hepatic Arteriogram 12/20/17 0000 Signed Impressions: Service Date/Time: Wednesday, December 20, 2017 15:32 - CONCLUSION: 1. 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 Followup angiography demonstrated complete exclusion of the pseudoaneurysm and fistula with normal appearing flow within the hepatic branches. Lion Leahy MD Biopsy X-Ray 12/18/17 0000 Signed Impressions: Service Date/Time: December 14:47 - CONCLUSION: Uncomplicated fluoroscopic guided biliary forceps biopsy and internal/external drainage catheter exchange as described in detail above Landry Mitchell MD Cholangiogram 12/16/17 0000 Signed Impressions: Service Date/Time: Saturday, December 16, 2017 17:07 - CONCLUSION: There is no drainage catheter complication. The patient does not have significant accumulation of abdominal ascites along the liver surface to potentially exacerbate fluid leakage along the tube tract. The fluid drainage appears to be benign serosanguinous. Dressing changes p.r.n. recommended. Landry Mitchell MD Abdomen Ultrasound 12/14/17 0000 Signed Impressions: Service Date/Time: Thursday, December 14, 2017 09:01 - CONCLUSION: Limited study due to bandages on the abdomen and bowel gas. Focal fatty infiltration right lobe of liver again seen. Gallbladder appears collapsed. Minimal ascites. Jerry Laureano MD Abdomen X-Ray 12/13/17 0000 Signed Impressions: Service Date/Time: Wednesday, December 13, 2017 18:55 - CONCLUSION: Nothing acute demonstrated. Nonobstructive bowel gas pattern and no free air. Evidence of right upper quadrant surgery and a internal/external biliary drainage catheter again noted. Landry Ryan MD Head CT 12/09/17 0000 Signed Impressions: Service Date/Time: Saturday, December 09, 2017 20:02 - CONCLUSION: Negative noncontrast head CT. Landry Ryan MD Bile Duct Drainage 12/03/17 0000 Signed Impressions: Service Date/Time: Sunday, December 03, 2017 14:10 - CONCLUSION: Uncomplicated biliary stent placement as above. Bj Hurtado MD Cholangiopancreatography MRI 12/02/17 0000 Signed Impressions: Service Date/Time: Saturday, December 02, 2017 08:17 - CONCLUSION: 1. Significant dilatation of the intrahepatic ducts ending at the confluence and possibility of stricture at this site or a Klatskin's tumor which is not visualized should be entertained. 2. Wedge-shaped focal fat right hepatic lobe. Luz Jean MD Physical Exam HEENT: Normocephalic; atraumatic, eyes icteric, intubated CHEST: wheezes CARDIAC: RRR ABDOMEN: distended, taut, significant TTP diffusely EXTREMITIES: No clubbing, cyanosis, or edema. SKIN: + jaundice. DEVICE TEST ENGINEER: sedated but does open eyes to abd exam (Kim Apodaca) Assessment and Plan Plan - Klatskins tumor, jaundice, elev LFTs - liver w/u unremarkable path bile duct benign liver. plan for liver bx when stable LFTs mild improvement today palliative care following, goals remain aggressive - Capsular tear liver, s/p ex lap and control liver laceration bleed. 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 CT 12/22 showed slight worsening pancreatitis, no necrosis CT with contrast 12/23 showed worsening presumed hemorrhagic pancreatitis, increased fluid or hemorrhage anterior to pancreas and stomach. significant TTP abd - leukocytosis - WBC mild decrease today ID following Plan: - abx per ID - Monitor labs - Transfuse as needed - will need liver bx, timing TBD - continue supportive care Pt has been seen and examined by myself and Dr. Duvall and this note has been written on his behalf (Kim Apodaca) Physician Comments Seen and examined with [facility], CT reviewed with Dr. Celeste in radiology. Evidence of peritoneal bleeding. Not a surgical candidate. Will do Stat bleeding scan and Dr. celeste will look into pulling back the biliary catheter as well. Discussed with drs. Landry and aLndry. (Luiz Duvall MD) Kim Apodaca Dec 24, 2017 14:19 Luiz Duvall MD Dec 24, 2017 15:18
--- NOTE | 2017-12-24 14:54 | HHI.HCPN ---
Reason for visit a. To assist with evaluation and management of symptoms including: Pain, dyspnea b. To assist medical decision maker(s) with: better understanding of current medical conditions; weighing benefits/burdens of medical treatment options; making medical treatment decisions. Subjective/Interval History Remains intubated and sedated, still jaundiced. Attempted SBT this morning, failed due to patient apnea. Remains on the ventilator. Per family discussion with attending, patient's 3 children plan to come this weekend. 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 CT of the abdomen 12/22 showed slightly worsening pancreatitis but no necrosis, follow-up CT of the abdomen and pelvis with contrast 12/23 showed worsening, presumed hemorrhagic, pancreatitis with increased fluid or hemorrhage anterior to pancreas and stomach. He remains significantly tender to any abdominal palpation. Surgical incision healing without signs or symptoms of infection. Biliary drain is intact and draining Clinical data: * Vital signs: BP 108/56, heart rate 72, respiratory rate 14, oxygen saturation 97% on 40% FiO2 * Laboratory: WBC 30.6 (32.1), H GB 8.0, HCT 23.6, PLT 78, sodium 147, potassium 3.5, BUN 39, creatinine 1.47 (1.81) AST 91 (150), ALT 103 (169), INR 1.6 (2.2). * Microbiology: Blood cultures 12/22 negative 2 days, urinalysis 12/23 no growth 24 hours, 12/20 Hemoccult positive. * Pathology: Peripheral smear showed marked leukocytosis with reactive features , severe normochromic normocytic anemia, mild thrombocytopenia. Comment indicating significant numbers of red cell fragments not appreciated and a microangiopathic hemolytic process is not favored. . Family/friend interactions Spoke with at bedside and updated her as to clinical findings, reviewed radiology studies with her as well as b2b sales consultant input. She remains positive with aggressive goals and would accept full resuscitation to include CPR, shock , drugs and reintubation if patient is medically extubated. She is aware that his prognosis is poor and that his hospitalization is likely to be a very long course with possible complications. . Advance Directives Living Will: Copy in medical record Health Care Surrogate: Copy in medical record Durable Power of Youth Counselor: Copy in medical record Objective Vital Signs Date Time Temp Pulse Resp B/P (MAP) Pulse Ox O2 Delivery O2 Flow Rate FiO2 12/24/17 12:00 40 12/24/17 12:00 72 12/24/17 12:00 97.9 72 14 108/56 (73) 97 12/24/17 11:33 96 40 12/24/17 11:07 50 12/24/17 11:00 90 5 130/57 (81) 96 12/24/17 10:00 91 12/24/17 10:00 91 16 146/66 (92) 97 12/24/17 09:50 40 12/24/17 09:50 40 12/24/17 09:00 76 14 129/65 (86) 99 12/24/17 08:00 79 12/24/17 08:00 100.8 79 14 118/56 (76) 98 12/24/17 08:00 50 12/24/17 07:57 97 50 12/24/17 07:00 72 15 112/56 (74) 98 12/24/17 04:35 97 50 12/24/17 04:00 50 12/24/17 04:00 98.4 74 14 109/54 (72) 97 12/24/17 01:15 97 50 12/24/17 00:00 98.6 83 14 122/64 (83) 97 12/24/17 00:00 50 12/23/17 22:24 98 60 12/23/17 21:07 98.7 86 14 118/62 98 12/23/17 20:53 99.0 81 26 113/55 99 12/23/17 20:00 60 12/23/17 20:00 99.0 82 14 122/57 (78) 99 12/23/17 19:25 99 60 12/23/17 19:00 97 Mechanical Ventilator 60 12/23/17 18:30 98.7 84 14 98/54 98 12/23/17 18:16 97.7 87 14 100/54 100 12/23/17 18:00 91 14 106/56 (73) 99 12/23/17 18:00 91 12/23/17 17:00 97 15 122/57 (78) 100 12/23/17 16:45 98.5 100 14 131/63 100 12/23/17 16:31 98.9 99 14 121/61 100 12/23/17 16:04 100 65 12/23/17 16:00 98.9 93 15 125/60 (81) 100 12/23/17 16:00 93 12/23/17 16:00 75 12/23/17 15:00 96 17 121/59 (79) 100 12/23/17 14:46 98.4 101 14 134/60 100 12/23/17 14:33 98.8 96 15 92/53 100 Intake & Output 12/24/17 12/24/17 07:00 19:00 Intake Total 2512 ml 974 ml Output Total 900 ml Balance 1612 ml 974 ml Intake Oral 0 ml 0 ml IV Total 1502 ml 974 ml Packed Cells 800 ml Blood Product IV Normal Saline Flush 150 ml Other 60 ml Output Urine Total 675 ml Drainage Total 225 ml # Bowel Movements 0 1 Physical Exam CONSTITUTIONAL/GENERAL: This is a morbidly obese, ill appearing, elderly male, intubated, sedated TUBES/LINES/DRAINS: PIV, RFA, RAC, right jugular central line, Carmona, ETT SKIN: Jaundice noted. No rashes or lesions. Warm dry and intact. HEAD: Atraumatic. Normocephalic. EYES: Pupils equal and round and reactive. Extraocular motions intact. Scleral icterus. No injection or drainage. Fundi not examined. ENT: Hearing diminished. Nose without bleeding or purulent drainage. Throat without visible erythema, exudates, masses, or lesions. NECK: Trachea midline, intubated. CARDIOVASCULAR: Regular rate and rhythm without murmurs, gallops, or rubs. No JVD. Peripheral pulses symmetric. RESPIRATORY/CHEST: Breath sounds shallow, tachypneic with scattered wheezes and coarse rhonchi throughout. GASTROINTESTINAL: Abdomen obese, soft, tender to palpation in all quadrants, mildly distended. Bowel sounds hypoactive. GENITOURINARY: Without palpable bladder distension. Carmona catheter in place. MUSCULOSKELETAL: Extremities without clubbing, cyanosis, or edema. No mottling or clubbing. NEUROLOGICAL: Intubated, lightly sedated. PSYCHIATRIC: Sedated . Diagnostic Tests Laboratory Laboratory Tests Test 12/21/17 20:09 12/22/17 11:50 12/22/17 12:10 12/22/17 13:38 Prothrombin Time 18.1 SEC (9.8-11.6) Prothromb Time International Ratio 1.8 RATIO Activated Partial Thromboplast Time 28.2 SEC (24.3-30.1) Blood Urea Nitrogen 27 MG/DL (7-18) Creatinine 1.28 MG/DL (0.60-1.30) Random Glucose 188 MG/DL (74-106) Total Protein 5.5 GM/DL (6.4-8.2) Albumin 2.7 GM/DL (3.4-5.0) Calcium Level 10.1 MG/DL (8.5-10.1) Alkaline Phosphatase 190 U/L (45-117) Aspartate Amino Transf (AST/SGOT) 173 U/L (15-37) Alanine Aminotransferase (ALT/SGPT) 199 U/L (12-78) Total Bilirubin 9.7 MG/DL (0.2-1.0) Sodium Level 142 MEQ/L (136-145) Potassium Level 3.8 MEQ/L (3.5-5.1) Chloride Level 97 MEQ/L (98-107) Carbon Dioxide Level 38.5 MEQ/L (21.0-32.0) Anion Gap 7 MEQ/L (5-15) Estimat Glomerular Filtration Rate 54 ML/MIN (>89) White Blood Count 60.6 TH/MM3 (4.0-11.0) Red Blood Count 2.88 MIL/MM3 (4.50-5.90) Hemoglobin 8.8 GM/DL (13.0-17.0) Hematocrit 26.8 % (39.0-51.0) Mean Corpuscular Volume 93.2 FL (80.0-100.0) Mean Corpuscular Hemoglobin 30.5 PG (27.0-34.0) Mean Corpuscular Hemoglobin Concent 32.7 % (32.0-36.0) Red Cell Distribution Width 18.4 % (11.6-17.2) Platelet Count 175 TH/MM3 (150-450) Mean Platelet Volume 10.4 FL (7.0-11.0) CBC Comment AUTO DIFF Differential Total Cells Counted 100 Neutrophils % (Manual) 88 % (16-70) Band Neutrophils % 4 % (0-6) Lymphocytes % 3 % (9-44) Monocytes % 5 % (0-8) Neutrophils # (Manual) 55.8 TH/MM3 (1.8-7.7) Differential Comment FINAL DIFF MANUAL Toxic Granulation 1+ (NORMAL) Platelet Estimate NORMAL (NORMAL) Platelet Morphology Comment NORMAL (NORMAL) Polychromasia 2.1 % (0.0-1.9) Target Cells 1+ (NORMAL) Ammonia 17 MCMOL/L (11-32) Test 12/22/17 14:24 12/22/17 17:40 12/22/17 20:20 12/22/17 20:25 White Blood Count 60.5 TH/MM3 (4.0-11.0) Red Blood Count 2.59 MIL/MM3 (4.50-5.90) Hemoglobin 8.1 GM/DL (13.0-17.0) 7.6 GM/DL (13.0-17.0) Hematocrit 23.9 % (39.0-51.0) 23.7 % (39.0-51.0) Mean Corpuscular Volume 92.1 FL (80.0-100.0) Mean Corpuscular Hemoglobin 31.3 PG (27.0-34.0) Mean Corpuscular Hemoglobin Concent 34.0 % (32.0-36.0) Red Cell Distribution Width 18.5 % (11.6-17.2) Platelet Count 162 TH/MM3 (150-450) Mean Platelet Volume 10.8 FL (7.0-11.0) CBC Comment AUTO DIFF Differential Total Cells Counted 100 Neutrophils % (Manual) 92 % (16-70) Band Neutrophils % 4 % (0-6) Lymphocytes % 2 % (9-44) Monocytes % 2 % (0-8) Neutrophils # (Manual) 58.1 TH/MM3 (1.8-7.7) Nucleated Red Blood Cells 1 /100 WBC (0-0) Differential Comment FINAL DIFF MANUAL Platelet Estimate NORMAL (NORMAL) Platelet Morphology Comment NORMAL (NORMAL) Polychromasia 2.0 % (0.0-1.9) Target Cells 1+ (NORMAL) Blood Gas Puncture Site RT RADIAL Blood Gas Patient Temperature 98.6 Blood Gas HCO3 38 mmol/L (22-26) Blood Gas Base Excess 13.5 mmol/L (-2-2) Blood Gas Oxygen Saturation 93 % (90-100) Arterial Blood pH 7.51 (7.380-7.420) Arterial Blood Partial Pressure CO2 48 mmHg (38-42) Arterial Blood Partial Pressure O2 89 mmHg (61-120) Arterial Blood Oxygen Content 10.4 Vol % (12.0-20.0) Arterial Blood Carboxyhemoglobin 2.6 % (0-4) Arterial Blood Methemoglobin 1.5 % (0-2) Blood Gas Hemoglobin 7.8 G/DL (12.0-16.0) Oxygen Delivery Device NASAL CANNULA Blood Gas Liter Flow 3 L/M Lipase 811 U/L (73-393) Tumor Marker Alpha Fetoprotein 1.5 NG/ML (0.5-8.0) Carcinoembryonic Antigen 1.0 NG/ML (0.2-5.0) CA 19-9 Antigen 83.9 U/ML (0.0-35.0) Lactic Acid Level 2.4 mmol/L (0.4-2.0) Test 12/23/17 03:46 12/23/17 05:50 12/23/17 06:13 12/23/17 13:00 Ammonia LESS THAN 10 MCMOL/L Nasal Screen MRSA (PCR) MRSA NOT DETECTED (NOT White Blood Count 55.0 TH/MM3 (4.0-11.0) Red Blood Count 2.41 MIL/MM3 (4.50-5.90) Hemoglobin 7.3 GM/DL (13.0-17.0) 6.2 GM/DL (13.0-17.0) Hematocrit 22.3 % (39.0-51.0) 19.6 % (39.0-51.0) Mean Corpuscular Volume 92.8 FL (80.0-100.0) Mean Corpuscular Hemoglobin 30.5 PG (27.0-34.0) Mean Corpuscular Hemoglobin Concent 32.9 % (32.0-36.0) Red Cell Distribution Width 19.5 % (11.6-17.2) Platelet Count 128 TH/MM3 (150-450) Mean Platelet Volume 11.3 FL (7.0-11.0) CBC Comment AUTO DIFF Differential Total Cells Counted 200 Neutrophils % (Manual) 94 % (16-70) Band Neutrophils % 1 % (0-6) Lymphocytes % 2 % (9-44) Monocytes % 3 % (0-8) Neutrophils # (Manual) 52.8 TH/MM3 (1.8-7.7) Myelocytes 1 % (0-0) Differential Comment FINAL DIFF MANUAL Platelet Estimate LOW (NORMAL) Platelet Morphology Comment NORMAL (NORMAL) Target Cells 1+ (NORMAL) Blood Smear Pathologist Review Blood Urea Nitrogen 43 MG/DL (7-18) Creatinine 1.81 MG/DL (0.60-1.30) Random Glucose 143 MG/DL (74-106) Total Protein 5.3 GM/DL (6.4-8.2) Albumin 2.5 GM/DL (3.4-5.0) Calcium Level 9.5 MG/DL (8.5-10.1) Phosphorus Level 2.5 MG/DL (2.5-4.9) Magnesium Level 2.2 MG/DL (1.5-2.5) Alkaline Phosphatase 149 U/L (45-117) Aspartate Amino Transf (AST/SGOT) 150 U/L (15-37) Alanine Aminotransferase (ALT/SGPT) 169 U/L (12-78) Total Bilirubin 10.9 MG/DL (0.2-1.0) Sodium Level 144 MEQ/L (136-145) Potassium Level 3.4 MEQ/L (3.5-5.1) Chloride Level 100 MEQ/L (98-107) Carbon Dioxide Level 36.3 MEQ/L (21.0-32.0) Anion Gap 8 MEQ/L (5-15) Estimat Glomerular Filtration Rate 36 ML/MIN (>89) Prothrombin Time 22.7 SEC (9.8-11.6) Prothromb Time International Ratio 2.2 RATIO Activated Partial Thromboplast Time 36.6 SEC (24.3-30.1) Fibrinogen 458 mg/dL (227-377) Lactic Acid Level 2.0 mmol/L (0.4-2.0) Amylase Level 85 U/L (25-115) Lipase 326 U/L (73-393) Test 12/23/17 18:04 12/23/17 23:58 12/24/17 04:32 Prothrombin Time 16.3 SEC (9.8-11.6) Prothromb Time International Ratio 1.6 RATIO White Blood Count 32.1 TH/MM3 (4.0-11.0) 30.6 TH/MM3 (4.0-11.0) Red Blood Count 2.71 MIL/MM3 (4.50-5.90) 2.67 MIL/MM3 (4.50-5.90) Hemoglobin 7.9 GM/DL (13.0-17.0) 8.0 GM/DL (13.0-17.0) Hematocrit 23.8 % (39.0-51.0) 23.6 % (39.0-51.0) Mean Corpuscular Volume 87.6 FL (80.0-100.0) 88.3 FL (80.0-100.0) Mean Corpuscular Hemoglobin 29.3 PG (27.0-34.0) 29.9 PG (27.0-34.0) Mean Corpuscular Hemoglobin Concent 33.4 % (32.0-36.0) 33.8 % (32.0-36.0) Red Cell Distribution Width 16.5 % (11.6-17.2) 17.0 % (11.6-17.2) Platelet Count 80 TH/MM3 (150-450) 78 TH/MM3 (150-450) Mean Platelet Volume 10.2 FL (7.0-11.0) 10.2 FL (7.0-11.0) CBC Comment AUTO DIFF Differential Total Cells Counted 100 Neutrophils % (Manual) 88 % (16-70) Band Neutrophils % 2 % (0-6) Lymphocytes % 4 % (9-44) Monocytes % 6 % (0-8) Neutrophils # (Manual) 27.5 TH/MM3 (1.8-7.7) Differential Comment FINAL DIFF MANUAL Platelet Estimate LOW (NORMAL) Platelet Morphology Comment NORMAL (NORMAL) Basophilic Stippling MOD (NORMAL) Ovalocytes 1+ (NORMAL) Blood Urea Nitrogen 39 MG/DL (7-18) Creatinine 1.47 MG/DL (0.60-1.30) Random Glucose 160 MG/DL (74-106) Total Protein 5.2 GM/DL (6.4-8.2) Albumin 2.5 GM/DL (3.4-5.0) Calcium Level 9.0 MG/DL (8.5-10.1) Magnesium Level 2.1 MG/DL (1.5-2.5) Alkaline Phosphatase 112 U/L (45-117) Aspartate Amino Transf (AST/SGOT) 91 U/L (15-37) Alanine Aminotransferase (ALT/SGPT) 103 U/L (12-78) Total Bilirubin 9.7 MG/DL (0.2-1.0) Sodium Level 147 MEQ/L (136-145) Potassium Level 3.5 MEQ/L (3.5-5.1) Chloride Level 107 MEQ/L (98-107) Carbon Dioxide Level 33.7 MEQ/L (21.0-32.0) Anion Gap 6 MEQ/L (5-15) Estimat Glomerular Filtration Rate 46 ML/MIN (>89) . Result Diagram: 12/24/172 12/24/17 0432 Microbiology Microbiology Date/Time Source Procedure Growth Status 12/22/17 20:20 Blood Peripheral Aerobic Blood Culture - Preliminary NO GROWTH IN 2 DAYS Resulted 12/22/17 20:20 Blood Peripheral Anaerobic Blood Culture - Preliminary NO GROWTH IN 2 DAYS Resulted 12/22/17 20:20 Blood Peripheral Aerobic Blood Culture - Preliminary NO GROWTH IN 2 DAYS Resulted 12/22/17 20:20 Blood Peripheral Anaerobic Blood Culture - Preliminary NO GROWTH IN 2 DAYS Resulted 12/23/17 02:54 Urine Catheterized Urine Urine Culture - Preliminary NO GROWTH IN 24 HOURS. Resulted Imaging Last Impressions Chest X-Ray 12/24/17 0600 Signed Impressions: Service Date/Time: Sunday, December 24, 2017 03:03 - CONCLUSION: 1. ET tube tip is at the abelardo and needs to be withdrawn 2 cm. 2. Increasing bilateral parenchymal infiltrates with consolidation in the left lower lobe. Jung Cevallos MD Upper Extremity Ultrasound 12/23/17 0000 Signed Impressions: Service Date/Time: Saturday, December 23, 2017 13:09 - CONCLUSION: 1. Positive for superficial thrombus in the left cephalic vein. No deep venous thrombosis. Ronnie Donis MD Abdomen/Pelvis CT 12/23/17 0000 Signed Impressions: Service Date/Time: Saturday, December 23, 2017 17:21 - CONCLUSION: 1. Slight worsening of presumed hemorrhagic pancreatitis with heterogeneous increased density in the pancreas. Measurements given above. Also increased fluid or hemorrhage anterior to the pancreas and stomach in the omental region. 2. Slight worsening of left pleural effusion. 3. Stable right pleural effusion, perisplenic fluid and stable fluid in left paracolic gutter and pelvis. 4. Mild anasarca. Ronnie Donis MD Celiac/Hepatic Arteriogram 12/20/17 0000 Signed Impressions: Service Date/Time: Wednesday, December 20, 2017 15:32 - CONCLUSION: 1. 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 Followup angiography demonstrated complete exclusion of the pseudoaneurysm and fistula with normal appearing flow within the hepatic branches. Lion Leahy MD Biopsy X-Ray 12/18/17 0000 Signed Impressions: Service Date/Time: December 14:47 - CONCLUSION: Uncomplicated fluoroscopic guided biliary forceps biopsy and internal/external drainage catheter exchange as described in detail above Landry Mitchell MD Cholangiogram 12/16/17 0000 Signed Impressions: Service Date/Time: Saturday, December 16, 2017 17:07 - CONCLUSION: There is no drainage catheter complication. The patient does not have significant accumulation of abdominal ascites along the liver surface to potentially exacerbate fluid leakage along the tube tract. The fluid drainage appears to be benign serosanguinous. Dressing changes p.r.n. recommended. Landry Mitchell MD Abdomen Ultrasound 12/14/17 0000 Signed Impressions: Service Date/Time: Thursday, December 14, 2017 09:01 - CONCLUSION: Limited study due to bandages on the abdomen and bowel gas. Focal fatty infiltration right lobe of liver again seen. Gallbladder appears collapsed. Minimal ascites. Jerry Laureano MD Abdomen X-Ray 12/13/17 0000 Signed Impressions: Service Date/Time: Wednesday, December 13, 2017 18:55 - CONCLUSION: Nothing acute demonstrated. Nonobstructive bowel gas pattern and no free air. Evidence of right upper quadrant surgery and a internal/external biliary drainage catheter again noted. Landry Ryan MD Head CT 12/09/17 0000 Signed Impressions: Service Date/Time: Saturday, December 09, 2017 20:02 - CONCLUSION: Negative noncontrast head CT. Landry Ryan MD Bile Duct Drainage 12/03/17 0000 Signed Impressions: Service Date/Time: Sunday, December 03, 2017 14:10 - CONCLUSION: Uncomplicated biliary stent placement as above. Bj Hurtado MD Cholangiopancreatography MRI 12/02/17 0000 Signed Impressions: Service Date/Time: Saturday, December 02, 2017 08:17 - CONCLUSION: 1. Significant dilatation of the intrahepatic ducts ending at the confluence and possibility of stricture at this site or a Klatskin's tumor which is not visualized should be entertained. 2. Wedge-shaped focal fat right hepatic lobe. Luz Jean MD Procedures 12/03: Biliary drain placement 12/04: Right IJ central line 12/04: Left femoral central line 12/04: Endotracheal intubation 12/04: Exploratory laparotomy 12/20: Forceps biopsy . Assessment and Plan Disease Oriented Problem List: (1) Pancreatitis (2) Anemia (3) Leukocytosis (4) Liver hemorrhage (5) Sepsis (6) Hypothyroidism (7) Polymyalgia rheumatica Symptom Scale: (1) Poor appetite 0-10 Scale: Unable to quantify (2) Abdominal pain 0-10 Scale: Unable to quantify Pertinent Non-Medical Issues Psychosocial:He was born and brought up in [place] where he completed high school and 2 years of college. Currently lives with his of 21 years. He has 3 children by his prior marriage, one boy and 2 girls all live in [place]. 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 They moved to [place] in August as his physician thought that a climate change might help his severe polymyalgia rheumatica, however he has seen no improvement so is planning to move back to [place], or [place] where his stepchildren live. Spiritual: Spirituality is important to him. 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 Legal: No previous living will or advanced directives completed, however had been discussed with his . Ethical issues impacting care: He is a little confused intermittently, however his is available and willing to act as decision-maker. . Important Contacts : Sandra Rios , cell . . 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 The pathology is pending and at this time no cancer has been diagnosed. He does have pancreatitis and sepsis which placed him at an increased risk of complications. He also suffered a liver laceration secondary to adhesions and a biliary drain placement requiring multiple blood transfusions. He is still having abdominal pain, elevated liver enzymes, increasing bilirubin and is jaundiced. He is now becoming confused. He is at risk of continued decline and recurrent hospitalizations. . Code Status: Full Code Plan PLAN: Legal decision maker: He is currently intubated so unable to participate in his decision making, however his is available and willing to act as decision-maker. Goals: Aggressive. CODE STATUS: FULL CODE SYMPTOMS: * Abdominal pain: Abdominal pain increased today from left upper quadrant, as noted yesterday, to all quadrants and increased tenderness today. Biliary drain is patent. He is currently on a fentanyl drip, titrated to comfort and sedation with morphine 1 mg, IV every 4 hours as needed for breakthrough pain or Pierron 5/325 mg 1-2 tab every 4 hours as needed for breakthrough pain. * Dyspnea: Now mechanically ventilated for worsening respiratory status. Failed SBT on sedation vacation this morning due to apnea. Solu-Medrol 60 mg every 12 hours, DuoNeb every 4 hours and as needed, antibiotics per ID. Ventilator management per comprehensive advisor service. Palliative care will continue to follow the patient during hospital course as condition evolves, to assist patient/decision-maker with understanding of their medical conditions, weighing benefits/burdens of treatment options, for clarification of goals of treatment. Additionally will assist with any symptoms of palliative concern. . Attestation To help prompt me to consider important information that might be impacting today's encounter and assessment, information from prior notes written by myself or my colleagues may have been "brought forward" into today's note. My signature on this note, however, is an attestation that I personally performed the exam, history, and/or decision-making noted today, and, unless otherwise indicated, the interactions with patient, family, and staff as well as the review of records all occurred today. I also attest that the listed assessment and stated plan reflect my best clinical judgment today based on the combination of historical information, prior notes, and today's exam/ interactions. When time spent is documented, it refers only to time spent today by the signer, or if indicated, combined time spent today by collaborating physician/nurse practitioner. . Nona Brown Dec 24, 2017 14:54
--- NOTE | 2017-12-24 15:39 | HHI.CCPN ---
Subjective Remarks/Hospital Course 82-year-old male with past history of BPH, hyperlipidemia, PMR who is admitted to [facility] 12/01/17 with right upper quadrant abdominal pain and jaundice. LFTs were elevated in an obstructive pattern. CT demonstrated intrahepatic biliary duct dilatation. A mass was not clearly seen. 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 He underwent percutaneous biliary stent placement and drain by interventional radiology 12/03/17 (Dr. Hurtado). He was hypotensive post procedure and this was initially managed by family day care worker with 1.5 L fluid resuscitation and stress dose steroids, abx for possible biliary sepsis. Hypotension persisted and he was transferred to ICU with critical care medicine consult. When I went to evaluate the patient he appeared pale with cool skin concerning for hemorrhagic shock. CBC demonstrated leukocytosis 27.5 and hemoglobin was 9.4 from a baseline of 13. Place central line and art line, started neosynephrine, began transfusing blood products until appropriately stabilized for transition to CT scanner. CT scan demonstrated moderate hemoperitoneum with hemorrhage adjacent to the liver. The biliary drain was in good position. Called Dr. Montero who will take patient to OR for emergent laparotomy. agreeable to risks of surgery. Upon transition to OR he had received PRBC 7 units, 2 units FFP and 1 gram calcium chloride with 1 more unit of FFP, 1 unit platelets, 1 unit cryo ready to transfuse. 12/04/17: Status post exploratory laparotomy and control of liver laceration bleeding by Dr. montero, findinL hemoperitoneum, Capsular tear Segment of the liver. Remains on Chas-Synephrine at 50 mcg/m. Repeat lab work showed platelet count of 50 hemoglobin of 11.9. Platelet transfusion ordered. at the bedside 12/05/17: Tolerating CPAP, follows commands but tachycardic. White count increased to 52,000 biliary fluid with Jabari. I have increase Diflucan to 400 mg daily and consulted ID. Urine output minimal, no response to fluid bolus. Weight up by 10 kg, will attempt diuresis 12/06/17: Extubated yesterday. Breathing comfortably. Tachycardic up to 160s, white count remains high at 50,000, tachycardia most likely from SIRS response/ sepsis. Responded to beta thania. Urine output adequate with Lasix. 16 KG fluid up. Start scheduled Lasix 40 mg IV every 8 hours with IV albumin. Keep nothing by mouth until cleared by general surgery 12/07: Afebrile. Heart rate in the 120s. Off all vasopressors. Tolerating full liquid diet. Positive BM 1. Pain control. 12/08: Afebrile. Pulse less than 100. Tolerating full liquid diet. Positive BM. Pain is controlled. 12/09: Currently Tmax 99.3. Elevated WBC again today. Tachycardic with movement. Pleasantly confused but redirectable. CT brain pending. 12/10: Afebrile. Slightly downtrending WBC count. Agitated overnight. CT brain no acute findings. Ammonia level slightly elevated at 43. Less tachycardic on scheduled metoprolol. 12/11: Afebrile. Tolerating oral diet. Biliary drain with 825 output overnight. ANI with minimal output 25 cc.. Requesting glass of water 12/12: Tmax 99.3. Currently 99.1. 6. A biliary drain overnight. CT revealed pancreatitis likely from biliary drain. No other focal evidence of discrete infection identified. 12/22: WBC again 60, worsening renal function, borderline hypotension, transferred back to ICU 12/23: In obvious respiratory distress, tachypneic using accessory muscles bilateral wheezes despite breathing treatments. Worsening renal function creatinine 1.[address] of the abdomen and pelvis from yesterday shows worsening pancreatitis, pelvic free fluid, but no evidence of necrotizing pancreatitis. I discussed with the patient and , will proceed with endotracheal intubation and central line placement. WBC remains elevated at 55K with left shift 12/24: Critically ill remains intubated off pressors. WBC count improved from 55 ,[address] of this abdomen pelvis done yesterday shows worsening hemorrhagic pancreatitis and intraperitoneal blood. GI and general surgery following not a surgical candidate. Dr. Fox discussed with Dr. Celeste. Get bleeding scan and also possible pull back the biliary catheter (to avoid obstruction of pancreatic duct) Objective Vital Signs Date Time Temp Pulse Resp B/P (MAP) Pulse Ox O2 Delivery O2 Flow Rate FiO2 12/24/17 14:51 97 40 12/24/17 14:00 76 12/24/17 12:00 97.9 14 108/56 (73) 12/23/17 19:00 Mechanical Ventilator 12/23/17 10:00 6.00 Intake and Output 12/24/17 12/24/17 12/25/17 08:00 16:00 00:00 Intake Total 1462 ml 974 ml Output Total 900 ml Balance 562 ml 974 ml Result Diagram: 12/24/17 0432 12/24/17 0432 Imaging Last Impressions Abdomen/Pelvis CT 12/11/17 0000 Signed Impressions: Service Date/Time: December 23:42 - CONCLUSION: 1. There has been interval development of diffuse pancreatitis. There is diffuse inflammatory changes surrounding the pancreas. 2. The previously noted fluid adjacent to the liver has resolved. 3. There is an internal/external biliary drainage catheter in place which appears to be in good position and unchanged in position compared to the prior study. 4. There is a small amount of free fluid deep in the pelvis. 5. Small bilateral pleural effusions. Nathen Ruano MD Head CT 12/09/17 0000 Signed Impressions: Service Date/Time: Saturday, December 09, 2017 20:02 - CONCLUSION: Negative noncontrast head CT. Landry Ryan MD Chest X-Ray 12/07/17 0600 Signed Impressions: Service Date/Time: Thursday, December 07, 2017 04:09 - CONCLUSION: No significant change. Persistent left pleural effusion and left lower lobe atelectasis versus consolidation. Jerry Laureano MD Abdomen X-Ray 12/03/17 1808 Signed Impressions: Service Date/Time: Sunday, December 03, 2017 18:15 - CONCLUSION: Nonspecific abdomen. Luz Jean MD Bile Duct Drainage 12/03/17 0000 Signed Impressions: Service Date/Time: Sunday, December 03, 2017 14:10 - CONCLUSION: Uncomplicated biliary stent placement as above. Bj Hurtado MD Cholangiopancreatography MRI 12/02/17 0000 Signed Impressions: Service Date/Time: Saturday, December 02, 2017 08:17 - CONCLUSION: 1. Significant dilatation of the intrahepatic ducts ending at the confluence and possibility of stricture at this site or a Klatskin's tumor which is not visualized should be entertained. 2. Wedge-shaped focal fat right hepatic lobe. Luz Jean MD Abdomen Ultrasound 12/01/17 0000 Signed Impressions: Service Date/Time: Friday, December 01, 2017 11:49 - CONCLUSION: 1. Intrahepatic biliary duct dilatation better seen on the CT examination. A lesion at the biliary duct confluence/common hepatic duct region still needs to be suspected. An ERCP or MRCP could be used to further evaluate this region. 2. Suspected area of focal hepatic steatosis at the anterior segment right lobe of the liver. 3. Gallstones Landry Zarate MD Objective Remarks GENERAL: Pale appearing male, on nasal cannula. In severe respiratory distress, generalized jaundice SKIN: Positive jaundice HEAD: Atraumatic. Normocephalic. EYES: Pupils equal and round about 3 mm bilaterally and reactive. Pallor+ positive scleral icterus ENT: No nasal bleeding or discharge. Mucous membranes moist and pink. Oropharynx without erythema NECK: Trachea midline. CARDIOVASCULAR: Tachycardic, RR. S1, S2. No S4. Without murmur RESPIRATORY: Tachypneic breathing 40 breaths per minute using accessory muscle. Bilateral extensive expiratory wheezing GASTROINTESTINAL: Biliary and peritoneal drain in place. Well healed ex lap incision. Severe tenderness LUQ MUSCULOSKELETAL: Extremities without deformity. LUE with increased girth NEUROLOGICAL: Alert awake oriented 3. No focal deficits. Strength is equal symmetric. Normal sensation. A/P Assessment and Plan NEURO/PSYCH: Pain due to acute pancreatitis Versed and fentanyl for pain control and ventilator synchrony Also on hydrocodone/acetaminophen 5-10/325 one tablet every 4 hours when necessary pain CT brain 12/19 revealed no acute intracranial findings RESP: Acute respiratory failure with hypoxia COPD exacerbation History of tobacco use Intubated and placed on mechanical ventilation 12/23 DuoNeb every 4 hours scheduled and when necessary Solu-Medrol 60 mg q12 IV See ID section for broad-spectrum antibiotics No vent weaning until GI workup and interventions completed CV: SIRS/Severe sepsis Lactic acidosis Prev Hemorrhagic shock-resolved Continue fluid resuscitation. Maintenance IV fluids at 100 ml per hour Received 2 units of PRBC 12/23/17 As needed metoprolol. 2.5 mg every 6 hours as needed for heart rate greater than 120. 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 Fox discussed with Dr. Celeste. Get bleeding scan and also possible pull back the biliary catheter (to avoid obstruction of pancreatic duct) Keep NPO, NGT to IWS prev Liver laceration with hemoperitoneum s/p OR ex lap with Dr. Montero, 12/04/17 and control of bleeding from liver capsular laceration GI following for biliary obstruction Elevated CA 19-9 84. Biopsy was negative, may need repeat Consider ERCP/endoscopic US when more stable and pancreatitis resolves Pantoprazole 40 mg IV daily for GI prophylaxis. Bowel regimen CT abdomen/pelvis 12/12 revealed pancreatitis. Resolution of hemoperitoneum. CT 12/22 worsening pancreatitis Hepatic angio demonstrated a 1cm pseudoaneurysm arising from a distal right hepatic branch s/p embolization FEN/RENAL: Acute kidney injury BPH Continue finasteride 5 mg daily Carmona to be maintained Continue IV fluids Replace electrolytes per ICU protocol ID: Severe sepsis Jabari cholangitis Staph epi UTI Severe acute pancreatitis s/p biliary stent, jabari albicans in biliary culture 12/04 Urine cultures positive for pansensitive staph epi 12/01 cont meropenem, cont fluconazole, continue IV Flagyl ID Dr. Gill HEME: Normocytic anemia Thrombocytopenia Leukocytosis Serial CBC. Replace as clinically indicated follow trends Received 2 units of PRBC yesterday for hemoglobin of 6.2 Bleeding probably into hemorrhagic pancreatitis ENDO: Hypothyroidism Chronic prednisone 5 mg daily for rheumatoid arthritis Continue Synthroid Continue Solu-Medrol 60 mg IV every 12 PROPH: SCDs for DVT prophylaxis. Pantoprazole 40 mg IV ACCESS: RIJ central line placed 12/23/17 Critical Care: The total critical care time was 35 minutes. Time to perform other separately billable procedures was not included in the critical care time. Nettie Alatorre MD Dec 24, 2017 15:39
[2017-12-24] MEDS: FLUCONAZOLE 400 MG PREMIX BAG 200 ML IV SCH (15:58)
--- NOTE | 2017-12-24 17:03 | HHI.FPPN ---
Addendum to progress note ADDENDUM Reason for addendum: Additonal documentation Additional information Dr Duvall had concerns today about internal bleeding after seeing the CT abdomen done yesterday evening and has ordered Mr Rios be taken for bleeding scan at nuclear medicine. Nursing took his lab for H&H prior to going to the 2 hour nuclear scan. Nursing has not noticed any external s/s of bleeding today. I spoke with Palliative Care and Nona plans to try and hold a telephone conference call with family members over the weekend if possible. Mr Rios appears to be comfortable down in the scan room and fentanyl has been weaned down to 150mcg/hr. His abdomen is still TTP, but breathing unlabored, and heart is RRR with no murmur, rub or gallop. We are holding his PO KCl since Lasix is also being held. We will monitor H&H and transfuse if Hgb <7.0 tonight. Will check AM labs including ammonia and Lipase tomorrow morning. Still awaiting to hear if radiology will be moving the biliary stent. (Pascual Valero MD R1) Pascual Valero MD R1 Dec 24, 2017 17:03 Elena Landry MD Dec 25, 2017 08:30
--- NOTE | 2017-12-24 17:36 | HHI.PR ---
Subjective Remarks 82 YOWM with VDRF,Pancreatitis, anemea,Leucocytosis Sedated with fentanyl Tolerated CPAP No Fever Going for Bleeding scan Objective Vital Signs Vital Signs Date Time Temp Pulse Resp B/P (MAP) Pulse Ox O2 Delivery O2 Flow Rate FiO2 12/24/17 16:00 40 12/24/17 16:00 76 12/24/17 15:00 98.3 71 14 118/58 (78) 97 12/24/17 14:51 97 40 12/24/17 14:00 69 14 134/63 (86) 99 12/24/17 14:00 76 12/24/17 13:00 70 14 116/59 (78) 97 12/24/17 12:00 40 12/24/17 12:00 72 12/24/17 12:00 97.9 72 14 108/56 (73) 97 12/24/17 11:33 96 40 12/24/17 11:07 50 12/24/17 11:00 90 5 130/57 (81) 96 12/24/17 10:00 91 12/24/17 10:00 91 16 146/66 (92) 97 12/24/17 09:50 40 12/24/17 09:50 40 12/24/17 09:00 76 14 129/65 (86) 99 12/24/17 08:00 79 12/24/17 08:00 100.8 79 14 118/56 (76) 98 12/24/17 08:00 50 12/24/17 07:57 97 50 12/24/17 07:00 72 15 112/56 (74) 98 12/24/17 04:35 97 50 12/24/17 04:00 50 12/24/17 04:00 98.4 74 14 109/54 (72) 97 12/24/17 01:15 97 50 12/24/17 00:00 98.6 83 14 122/64 (83) 97 12/24/17 00:00 50 12/23/17 22:24 98 60 12/23/17 21:07 98.7 86 14 118/62 98 12/23/17 20:53 99.0 81 26 113/55 99 12/23/17 20:00 60 12/23/17 20:00 99.0 82 14 122/57 (78) 99 12/23/17 19:25 99 60 12/23/17 19:00 97 Mechanical Ventilator 60 12/23/17 18:30 98.7 84 14 98/54 98 12/23/17 18:16 97.7 87 14 100/54 100 12/23/17 18:00 91 14 106/56 (73) 99 12/23/17 18:00 91 I/O 12/23/17 12/23/17 12/23/17 12/24/17 12/24/17 12/24/17 07:00 15:00 23:00 07:00 15:00 23:00 Intake Total 2150 ml 699 ml 3618 ml 1912 ml 974 ml 100 ml Output Total 1100 ml 975 ml 900 ml 700 ml Balance 1050 ml 699 ml 2643 ml 1012 ml 974 ml -600 ml Intake Oral 0 ml 0 ml 0 ml IV Total 2150 ml 689 ml 1823 ml 1402 ml 974 ml Packed Cells 400 ml 400 ml FFP 805 ml Blood Product IV Normal Saline Flush 10 ml 190 ml 50 ml Other 400 ml 60 ml 100 ml Output Urine Total 575 ml 725 ml 675 ml 550 ml Drainage Total 525 ml 250 ml 225 ml 150 ml # Bowel Movements 0 0 1 Result Diagram: 12/24/17 1530 12/24/17 0432 Objective Remarks GENERAL:Elderly male on Vent SKIN: Warm and dry. HEAD: Normocephalic. EYES:Deep Jaundice. No injection or drainage. NECK: Supple, trachea midline. No JVD or lymphadenopathy. CARDIOVASCULAR: Regular rate and rhythm without murmurs, gallops, or rubs. RESPIRATORY: Breath sounds equal bilaterally. No accessory muscle use. GASTROINTESTINAL: Abdomen soft, non-tender, nondistended. MUSCULOSKELETAL: No cyanosis, or edema. BACK: Nontender without obvious deformity. No CVA tenderness. A/P Assessment and Plan VDRF Pancreatitis Anemea Leucocytosis Jaundice PLAN: Vent support Sedation with Fentanyl Cont Abx Monitor H/H Bleeding scan Darshan Leos MD Dec 24, 2017 17:36
--- NOTE | 2017-12-24 17:50 | HHI.IDPN ---
Subjective Subjective Remarks CT A/P cw hemorragic pancreatitis somewhat better WBC down UOP improved stable bili trending down Antibiotics meropenem fluconazol Past Medical History Allergies: Coded Allergies: No Known Allergies (Unverified Allergy, Unknown, 12/01/17) Objective . Vital Signs Date Time Temp Pulse Resp B/P (MAP) Pulse Ox O2 Delivery O2 Flow Rate FiO2 12/24/17 16:00 40 12/24/17 16:00 76 12/24/17 15:00 98.3 71 14 118/58 (78) 97 12/24/17 14:51 97 40 12/24/17 14:00 69 14 134/63 (86) 99 12/24/17 14:00 76 12/24/17 13:00 70 14 116/59 (78) 97 12/24/17 12:00 40 12/24/17 12:00 72 12/24/17 12:00 97.9 72 14 108/56 (73) 97 12/24/17 11:33 96 40 12/24/17 11:07 50 12/24/17 11:00 90 5 130/57 (81) 96 12/24/17 10:00 91 12/24/17 10:00 91 16 146/66 (92) 97 12/24/17 09:50 40 12/24/17 09:50 40 12/24/17 09:00 76 14 129/65 (86) 99 12/24/17 08:00 79 12/24/17 08:00 100.8 79 14 118/56 (76) 98 12/24/17 08:00 50 12/24/17 07:57 97 50 12/24/17 07:00 72 15 112/56 (74) 98 12/24/17 04:35 97 50 12/24/17 04:00 50 12/24/17 04:00 98.4 74 14 109/54 (72) 97 12/24/17 01:15 97 50 12/24/17 00:00 98.6 83 14 122/64 (83) 97 12/24/17 00:00 50 12/23/17 22:24 98 60 12/23/17 21:07 98.7 86 14 118/62 98 12/23/17 20:53 99.0 81 26 113/55 99 1/23/18 20:00 60 12/23/17 20:00 99.0 82 14 122/57 (78) 99 12/23/17 19:25 99 60 12/23/17 19:00 97 Mechanical Ventilator 60 12/23/17 18:30 98.7 84 14 98/54 98 12/23/17 18:16 97.7 87 14 100/54 100 12/23/17 18:00 91 14 106/56 (73) 99 12/23/17 18:00 91 12/24/17 12/24/17 12/25/17 15:00 23:00 07:00 Intake Total 974 ml 100 ml Output Total 700 ml Balance 974 ml -600 ml Intake Oral 0 ml IV Total 974 ml Other 100 ml Output Urine Total 550 ml Drainage Total 150 ml # Bowel Movements 1 . Laboratory Tests Test 12/22/17 20:20 12/23/17 06:13 12/23/17 13:00 12/23/17 23:58 Hemoglobin 7.6 GM/DL 7.3 GM/DL 6.2 GM/DL 7.9 GM/DL Hematocrit 23.7 % 22.3 % 19.6 % 23.8 % White Blood Count 55.0 TH/MM3 32.1 TH/MM3 Red Blood Count 2.41 MIL/MM3 2.71 MIL/MM3 Mean Corpuscular Volume 92.8 FL 87.6 FL Mean Corpuscular Hemoglobin 30.5 PG 29.3 PG Mean Corpuscular Hemoglobin Concent 32.9 % 33.4 % Red Cell Distribution Width 19.5 % 16.5 % Platelet Count 128 TH/MM3 80 TH/MM3 Mean Platelet Volume 11.3 FL 10.2 FL CBC Comment AUTO DIFF Differential Total Cells Counted 200 Neutrophils % (Manual) 94 % Band Neutrophils % 1 % Lymphocytes % 2 % Monocytes % 3 % Neutrophils # (Manual) 52.8 TH/MM3 Myelocytes 1 % Differential Comment FINAL DIFF MANUAL Platelet Estimate LOW Platelet Morphology Comment NORMAL Target Cells 1+ Blood Smear Pathologist Review Test 12/24/17 04:32 12/24/17 15:30 White Blood Count 30.6 TH/MM3 Red Blood Count 2.67 MIL/MM3 Hemoglobin 8.0 GM/DL 8.4 GM/DL Hematocrit 23.6 % Mean Corpuscular Volume 88.3 FL Mean Corpuscular Hemoglobin 29.9 PG Mean Corpuscular Hemoglobin Concent 33.8 % Red Cell Distribution Width 17.0 % Platelet Count 78 TH/MM3 Mean Platelet Volume 10.2 FL CBC Comment AUTO DIFF Differential Total Cells Counted 100 Neutrophils % (Manual) 88 % Band Neutrophils % 2 % Lymphocytes % 4 % Monocytes % 6 % Neutrophils # (Manual) 27.5 TH/MM3 Differential Comment FINAL DIFF MANUAL Platelet Estimate LOW Platelet Morphology Comment NORMAL Basophilic Stippling MOD Ovalocytes 1+ Laboratory Tests Test 12/22/17 20:20 12/22/17 20:25 12/23/17 03:46 12/23/17 06:13 Lipase 811 U/L Tumor Marker Alpha Fetoprotein 1.5 NG/ML Carcinoembryonic Antigen 1.0 NG/ML CA 19-9 Antigen 83.9 U/ML Lactic Acid Level 2.4 mmol/L Ammonia LESS THAN 10 MCMOL/L Blood Urea Nitrogen 43 MG/DL Creatinine 1.81 MG/DL Random Glucose 143 MG/DL Total Protein 5.3 GM/DL Albumin 2.5 GM/DL Calcium Level 9.5 MG/DL Phosphorus Level 2.5 MG/DL Magnesium Level 2.2 MG/DL Alkaline Phosphatase 149 U/L Aspartate Amino Transf (AST/SGOT) 150 U/L Alanine Aminotransferase (ALT/SGPT) 169 U/L Total Bilirubin 10.9 MG/DL Sodium Level 144 MEQ/L Potassium Level 3.4 MEQ/L Chloride Level 100 MEQ/L Carbon Dioxide Level 36.3 MEQ/L Anion Gap 8 MEQ/L Estimat Glomerular Filtration Rate 36 ML/MIN Test 12/23/17 13:00 12/24/17 04:32 Lactic Acid Level 2.0 mmol/L Amylase Level 85 U/L Lipase 326 U/L Blood Urea Nitrogen 39 MG/DL Creatinine 1.47 MG/DL Random Glucose 160 MG/DL Total Protein 5.2 GM/DL Albumin 2.5 GM/DL Calcium Level 9.0 MG/DL Magnesium Level 2.1 MG/DL Alkaline Phosphatase 112 U/L Aspartate Amino Transf (AST/SGOT) 91 U/L Alanine Aminotransferase (ALT/SGPT) 103 U/L Total Bilirubin 9.7 MG/DL Sodium Level 147 MEQ/L Potassium Level 3.5 MEQ/L Chloride Level 107 MEQ/L Carbon Dioxide Level 33.7 MEQ/L Anion Gap 6 MEQ/L Estimat Glomerular Filtration Rate 46 ML/MIN Microbiology Date/Time Source Procedure Growth Status 12/22/17 20:20 Blood Peripheral Aerobic Blood Culture - Preliminary NO GROWTH IN 2 DAYS Resulted 12/22/17 20:20 Blood Peripheral Anaerobic Blood Culture - Preliminary NO GROWTH IN 2 DAYS Resulted 12/22/17 20:20 Blood Peripheral Aerobic Blood Culture - Preliminary NO GROWTH IN 2 DAYS Resulted 12/22/17 20:20 Blood Peripheral Anaerobic Blood Culture - Preliminary NO GROWTH IN 2 DAYS Resulted 12/23/17 02:54 Urine Catheterized Urine Urine Culture - Preliminary NO GROWTH IN 24 HOURS. Resulted Imaging Last Impressions Chest X-Ray 12/24/17 0600 Signed Impressions: Service Date/Time: Sunday, December 24, 2017 03:03 - CONCLUSION: 1. ET tube tip is at the abelardo and needs to be withdrawn 2 cm. 2. Increasing bilateral parenchymal infiltrates with consolidation in the left lower lobe. Jung Cevallos MD Upper Extremity Ultrasound 12/23/17 0000 Signed Impressions: Service Date/Time: Saturday, December 23, 2017 13:09 - CONCLUSION: 1. Positive for superficial thrombus in the left cephalic vein. No deep venous thrombosis. Ronnie Donis MD Abdomen/Pelvis CT 12/23/17 0000 Signed Impressions: Service Date/Time: Saturday, December 23, 2017 17:21 - CONCLUSION: 1. Slight worsening of presumed hemorrhagic pancreatitis with heterogeneous increased density in the pancreas. Measurements given above. Also increased fluid or hemorrhage anterior to the pancreas and stomach in the omental region. 2. Slight worsening of left pleural effusion. 3. Stable right pleural effusion, perisplenic fluid and stable fluid in left paracolic gutter and pelvis. 4. Mild anasarca. Ronnie Donis MD Celiac/Hepatic Arteriogram 12/20/17 0000 Signed Impressions: Service Date/Time: Wednesday, December 20, 2017 15:32 - CONCLUSION: 1. 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 Followup angiography demonstrated complete exclusion of the pseudoaneurysm and fistula with normal appearing flow within the hepatic branches. Lion Leahy MD Biopsy X-Ray 12/18/17 0000 Signed Impressions: Service Date/Time: December 14:47 - CONCLUSION: Uncomplicated fluoroscopic guided biliary forceps biopsy and internal/external drainage catheter exchange as described in detail above Landry Mitchell MD Cholangiogram 1/16/18 0000 Signed Impressions: Service Date/Time: Saturday, December 16, 2017 17:07 - CONCLUSION: There is no drainage catheter complication. The patient does not have significant accumulation of abdominal ascites along the liver surface to potentially exacerbate fluid leakage along the tube tract. The fluid drainage appears to be benign serosanguinous. Dressing changes p.r.n. recommended. Landry Mitchell MD Abdomen Ultrasound 12/14/17 0000 Signed Impressions: Service Date/Time: Thursday, December 14, 2017 09:01 - CONCLUSION: Limited study due to bandages on the abdomen and bowel gas. Focal fatty infiltration right lobe of liver again seen. Gallbladder appears collapsed. Minimal ascites. Jerry Laureano MD Abdomen X-Ray 12/13/17 0000 Signed Impressions: Service Date/Time: Wednesday, December 13, 2017 18:55 - CONCLUSION: Nothing acute demonstrated. Nonobstructive bowel gas pattern and no free air. Evidence of right upper quadrant surgery and a internal/external biliary drainage catheter again noted. Landry Ryan MD Head CT 12/09/17 0000 Signed Impressions: Service Date/Time: Saturday, December 09, 2017 20:02 - CONCLUSION: Negative noncontrast head CT. Landry Ryan MD Bile Duct Drainage 12/03/17 0000 Signed Impressions: Service Date/Time: Sunday, December 03, 2017 14:10 - CONCLUSION: Uncomplicated biliary stent placement as above. Bj Hurtado MD Cholangiopancreatography MRI 12/02/17 0000 Signed Impressions: Service Date/Time: Saturday, December 02, 2017 08:17 - CONCLUSION: 1. Significant dilatation of the intrahepatic ducts ending at the confluence and possibility of stricture at this site or a Klatskin's tumor which is not visualized should be entertained. 2. Wedge-shaped focal fat right hepatic lobe. Luz Jean MD Physical Exam CONSTITUTIONAL/GENERAL: intubated, on vent Barely responds TUBES/LINES/DRAINS: SKIN: + quite jaundiced, no rashes, or lesions. Skin temperature appropriate. Not diaphoretic. HEENT; dry mucosae, intense icterus CARDIOVASCULAR: Regular rate and rhythm without murmurs, gallops, or rubs. No JVD. Peripheral pulses symmetric. RESPIRATORY/CHEST: Symmetric, unlabored respirations. Clear to auscultation. Breath sounds equal bilaterally. No wheezes, rales, or rhonchi. GASTROINTESTINAL: Abdomen tense and markely tender to even very light palpation and marked distention + guarding, rebound Biliary drain in place with light yellow bile GENITOURINARY: Without palpable bladder distension. Condom catheter in place with better UOP MUSCULOSKELETAL: Extremities without clubbing, cyanosis, + edema. No joint tenderness or effusion noted. No calf tenderness. No mottling or clubbing. NEUROLOGICAL: sedated, arousable follows commands PSYCHIATRIC: unable to assess Assessment & Plan Remarks Acute hypovolemic shock following bleeding 2/2 complicaion of biliary stent placement sp emergent surgery - shock cliniocally resolved Obstructive jaundiced, ethiology not yet established sp biliary stent placement candidal cholangitis Sepsis Leukocytosis, leukemoid reaction - improving initilaly ; worse again Acute VDRF - resolved ARF- resolved Pt significant ly improved clinically Staph epi bacteriuria - doubt clin significance - not a trypical urinary pathogen Pancreatitis by CT finding , but lipase amylase wnl ? aspiration PNA Dysphagia, on thickened liquids now New issue: suspecting new sepsis with WBC of 60 K and renal insufficiency sp IR procedure Dec 20 WBC going down Hemooragic pancreatitis - worse lipase 800 Critically ill More stable today improved ARF cont meropenem, full dose cont fluconazole @ 400 mg IV dw Brigette Mix MD Dec 24, 2017 17:50
--- NOTE | 2017-12-24 18:43 | RADRPT ---
EXAM DATE/TIME: 12/24/2017 16:43 [facility] COMPARISON: No previous studies available for comparison. INDICATIONS : Peritoneal bleeding. DOSE: 20.2 mCi Tc99m Ultratag labeled red blood cells IV IMAGIN hrs MEDICAL HISTORY : Gallbladder disease. SURGICAL HISTORY : Neck, back and hernia surgery. ENCOUNTER: Initial ACUITY: 1 day PAIN SCALE: 2/10 LOCATION: Bilateral Abdomen. TECHNIQUE: Following the modified in vitro labeling of autologous red cells, dynamic continuous images were acqu ired for the specified interval. FINDINGS: BIODISTRIBUTION: There is a very good labeling of red cells without significant uptake in the gastric wall. There is good delineation of the blood pool of the spleen and abdominal vessels. BLEEDING: No episodes of active GI bleeding are observed during specified interval of continuous observation. CONCLUSION: 1. Negative for active GI bleeding. Ronnie Donis MD on December 24, 2017 at 18:41 Board Certified Radiologist. This report was verified electronically.
[2017-12-24] MEDS ORDERED: DOCUSATE SODIUM 50 MG/SENNA 8.6 MG TAB OG-TUBE SCH (21:00)
[2017-12-25] VITALS (19 sets, daily range): BP systolic 98–153; BP diastolic 65–87; PULSE 78–112; RESP 14–15; TEMP 98.8–100.2; O2SAT 94–100
[2017-12-25] MEDS: CHLORHEXIDINE GLUCONATE 2 % 1 PACK (2 CLOTHS)(taper/protocol) TOPICAL SCH (00:25)
[2017-12-25] MEDS: ALBUMIN 25% INJ 50 ML IV SCH ×3 (00:25→22:15)
[2017-12-25 03:05] LABS: AUTOMATED NEUTROPHIL # 24.4 TH/MM3 (1.8-7.7); BASOPHIL % 0.1 % (0.0-2.0); HEMATOCRIT 25.6 % (39.0-51.0); HEMOGLOBIN 8.7 GM/DL (13.0-17.0); LYMPH % 0.6 % (9.0-44.0); LYMPHOCYTE # 0.2 TH/MM3 (1.0-4.8); MEAN CORPUSCULAR HEMOGLOBIN 30.3 PG (27.0-34.0); MONO % 5.3 % (0.0-8.0); MONOCYTE # 1.4 TH/MM3 (0-0.9); PLATELET COUNT 107 TH/MM3 (150-450); RED BLOOD COUNT 2.88 MIL/MM3 (4.50-5.90); RED CELL DISTRIBUTION WIDTH 17.1 % (11.6-17.2); WHITE BLOOD COUNT 25.9 TH/MM3 (4.0-11.0)
[2017-12-25] MEDS: RESP: ALBUTEROL 2.5 MG/IPRATROPIUM 0.5 MG NEB (SCH) NEB ×6 (03:24→22:51)
[2017-12-25 03:30] LABS: ALKALINE PHOSPHATASE 136 U/L (45-117); TOTAL BILIRUBIN ADULT 9.3 MG/DL (0.2-1.0); TOTAL PROTEIN 5.5 GM/DL (6.4-8.2)
[2017-12-25 03:34] LABS: ALBUMIN 2.7 GM/DL (3.4-5.0); ALT (GPT) 90 U/L (12-78); AST (GOT) 65 U/L (15-37); BICARBONATE 32.5 MEQ/L (21.0-32.0); BLOOD UREA NITROGEN 39 MG/DL (7-18); CALCIUM 9.4 MG/DL (8.5-10.1); CHLORIDE 112 MEQ/L (98-107); CREATININE 1.25 MG/DL (0.60-1.30); GLOMERULAR FILTRATION RATE 56 ML/MIN (>89); GLUCOSE,RANDOM 146 MG/DL (74-106); LIPASE 79 U/L (73-393); SODIUM (NA) 150 MEQ/L (136-145)
[2017-12-25] MEDS: LEVOTHYROXINE SODIUM 100 MCG TAB OG-TUBE SCH (05:17)
[2017-12-25] MEDS: RESP: BUDESONIDE 0.5 MG/2 ML NEB NEB SCH ×2 (07:46→19:23)
[2017-12-25] MEDS: PANTOPRAZOLE SODIUM 40 MG VIAL IV PUSH SCH (08:24)
[2017-12-25] MEDS: methylPREDNISolone SOD SUCC 125 MG/2 ML VIAL IV PUSH SCH (08:24)
[2017-12-25] MEDS: URSODIOL 300 MG CAP PO SCH ×2 (08:24→22:15)
[2017-12-25] MEDS: SODIUM CHLORIDE 0.9% FLUSH 10 ML FLUSH IV FLUSH SCH ×2 (08:25→22:14)
[2017-12-25] MEDS: FINASTERIDE 5 MG TAB PO SCH (08:25)
[2017-12-25] MEDS: MEROPENEM INJ 1,000 MG in SODIUM CHLORIDE 0.9% INJ 100 ML IV SCH ×3 (08:25→22:15)
[2017-12-25] MEDS: CHLORHEXIDINE 0.12% (ORAL KIT) 15 ML CUP MT SCH ×2 (08:26→22:14)
[2017-12-25] MEDS ORDERED: MAGNESIUM OXIDE 400 MG TAB PO PRN (08:30)
[2017-12-25] MEDS ORDERED: MAGNESIUM SULFATE INJ 4 GM in SODIUM CHLORIDE 0.9% INJ 92 ML IV PRN (08:30)
[2017-12-25] MEDS ORDERED: POTASSIUM CHLORIDE 25 MEQ EFFERVESCENT TAB PO PRN (08:30)
[2017-12-25] MEDS ORDERED: MAGNESIUM SULFATE INJ 2 GM in SODIUM CHLORIDE 0.9% INJ 96 ML IV PRN (08:30)
[2017-12-25] MEDS ORDERED: POTASSIUM PHOSPHATE MONOBASIC 500 MG TAB PO/TUBE PRN (08:30)
[2017-12-25] MEDS ORDERED: POTASSIUM PHOSPHATE MONOBASIC 500 MG TAB PO PRN (08:30)
[2017-12-25] MEDS ORDERED: POTASSIUM CHLOR 20 MEQ PREMIX 100 ML IV PRN ×2 (08:30)
[2017-12-25] MEDS ORDERED: POTASSIUM PHOSPHATE INJ 30 MMOL in SODIUM CHLOR 0.9% 250 ML INJ 250 ML IV PRN (08:30)
[2017-12-25] MEDS ORDERED: SODIUM PHOSPHATE INJ 30 MMOL in SODIUM CHLOR 0.9% 250 ML INJ 240 ML IV PRN (08:30)
[2017-12-25] MEDS ORDERED: POTASSIUM CHLOR 40 MEQ PREMIX 100 ML IV PRN ×2 (08:30)
--- NOTE | 2017-12-25 08:57 | HHI.FPPN ---
Subjective Remarks Patient intubated and sedated with fentanyl but alert enough to respond to some questions. at bedside, remains hopeful. He has shown some clinical improvement. Nurse at bedside stated that he did well overnight but did have multiple diarrheal stools overnight that required placement of a rectal tube. (Eko,Lorin Rogers MD R2) Objective Vitals Vital Signs Date Time Temp Pulse Resp B/P (MAP) Pulse Ox O2 Delivery O2 Flow Rate FiO2 12/25/17 06:00 84 12/25/17 05:22 98 40 12/25/17 04:00 40 12/25/17 04:00 112 12/25/17 04:00 98.8 112 15 98/68 (78) 98 12/25/17 03:24 98 40 12/25/17 02:00 93 12/25/17 00:00 40 12/25/17 00:00 98.9 82 14 144/67 (92) 98 12/25/17 00:00 82 12/24/17 23:27 97 40 12/24/17 22:00 71 12/24/17 20:09 99 40 12/24/17 20:00 98.7 67 14 124/58 (80) 98 12/24/17 20:00 40 12/24/17 20:00 67 12/24/17 16:18 100 100 12/24/17 16:00 40 12/24/17 16:00 76 12/24/17 15:00 98.3 71 14 118/58 (78) 97 12/24/17 14:51 97 40 12/24/17 14:00 69 14 134/63 (86) 99 12/24/17 14:00 76 12/24/17 13:00 70 14 116/59 (78) 97 12/24/17 12:00 40 12/24/17 12:00 72 12/24/17 12:00 97.9 72 14 108/56 (73) 97 12/24/17 11:33 96 40 12/24/17 11:07 50 12/24/17 11:00 90 5 130/57 (81) 96 12/24/17 10:00 91 12/24/17 10:00 91 16 146/66 (92) 97 12/24/17 09:50 40 12/24/17 09:50 40 12/24/17 09:00 76 14 129/65 (86) 99 I/O 12/24/17 12/24/17 12/24/17 12/25/17 12/25/17 12/25/17 07:00 15:00 23:00 07:00 15:00 23:00 Intake Total 1912 ml 974 ml 2340 ml 50 ml Output Total 900 ml 700 ml 600 ml Balance 1012 ml 974 ml 1640 ml -550 ml Intake Oral 0 ml 0 ml 0 ml IV Total 1402 ml 974 ml 2240 ml 50 ml Packed Cells 400 ml Blood Product IV Normal Saline Flush 50 ml Other 60 ml 100 ml Output Urine Total 675 ml 550 ml 550 ml Drainage Total 225 ml 150 ml 50 ml # Bowel Movements 0 1 4 (Lorin Pollock MD R2) Result Diagram: 12/25/1724412/25/17244 Objective Remarks GENERAL: Ill-appearing, jaundiced, lying in bed, intubated and sedated on fentanyl, OG tube in place SKIN: No lesions. Jaundiced. Ecchymosis at LLQ below umbilicus ([place] Sign) HEAD: Normocephalic. Atraumatic EYES: Mild scleral icterus. No injection or drainage CARDIOVASCULAR: Regular rate and rhythm without murmur, gallop, or rub. RESPIRATORY: Good breath sounds, on ventilator with vent set at 14bpm/8 PEEP/40 % FiO2 GASTROINTESTINAL: Abdomen obese, tympanitic, distended, exquisitely tender to palpation with guarding. BS hypoactive. No guarding. Transverse laparotomy scar over RUQ closed with steri-strips, c/d/i with no induration or fluctuance. Biliary drain in place on right lateral abdomen with small amount of green bilious drainage inside the drain bag. Rectal tube with no stool drainage EXTREMITIES: No cyanosis. 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 Following IR biliary stent and drainage on 12/03, pt found to have liver laceration and hemorrhage causing hemoperitoneum. Exploratory laparotomy performed emergently on 12/04 requiring 6u PRBCs, 1u FFP and 1u Cryo with EBL 2L. Following surgery, pt was sent to ICU for management and showed improvement but still with persistently elevated WBC. He was found to have pancreatitis on CT scan but lipase and amylase were not elevated. His biliary drain was investigated on 12/16/16 due to leaking and was found to be working properly. 12/19: Given 1uPRBCs from blood loss anemia 12/17 w/Hgb 6.8 and H/H improved to 8.1/24.5. Today H/H 7.3/22.7; will do f/u H/H 1PM and will transfuse 1uPRBCs if <7.0. BP elevated to 161/93, confused overnight and incontinent of urine. Getting scheduled oxycodone q8h for pain control now and pt w/o complaint for pain. IR took biopsies of stricture and mass surrounding stricture yesterday and we are awaiting results to consider further workup. Pt appears to be improved wrt RR but still using accessory muscles of neck; is not clammy today; and is resting more comfortably. CXR shows some improvement in PNA. Continues to be afebrile and WBC reduced to 20.6 today. Vanc trough 13.7; continue Zosyn, Vanc, levaquin and diflucan; ID and GI consulted. 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 Discussed with general surgeon Winston who suspects that the fluid pooling is a small bleed from the catheter exchange. He will discuss with IR on Friday to go over all scans/ tests and come up with a plan. Also spoke with IR Dr. Leahy, who states that he would evaluate the scans and will make a decision on the next steps. 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 Pt received 1uPRBCs early this morning with follow-up H/H indicating pt is hemodynamically stable at 8.7/26.1. Morning labs indicate rising H/H at 9.0/ 27.1. Hypernatremia resolved at 142 this morning. LFTs and Tbili still trending upward, likely 2/2 blood loss--will look to trend down hopefully from here. Pt slight jaundiced as a result w/mild scleral icterus. CXR this morning showing moderate CHF progression--adding one time Lasix 20mg IV to scheduled dosage due to having received blood products, reduce cardiac afterload, and reduce WOB. We had nursing flush his biliary drain which appeared to be clogged with dark fluid ; once flushed, began draining light green bilious fluid. 12/22: Pt with increase work of breathing and wheezing, improved on reexamination after steroids and Lasix. His reports that he has been asking to go home. His nurse reports that he has been refusing some medications. Pulmonology consulted for further recommendations. 12/23: Patient lying in bed, very tender to palpation of his abdomen. Respirations appear nonlabored 12/24: Pt intubated and sedated on 200mcg/hr fentanyl and versed on vent with settings 14bpm/8 PEEP/50%FiO2. CT abdomen/pelvis shows hemorrhagic pancreatitis w/increased pancreatic density and increased fluid collection anterior to the pancreas. Also a left pleural effusion, anasarca, and splenic fluid collection. Lasix is being held. His is requesting aggressive measures. His children will arrive this weekend. Palliative Care has visited with the and is following. Pt with poor prognosis and is not a surgical candidate at this time. 12/25: Pt intubated and sedated on 150mcg/hr fentanyl on vent with settings 14bpm /8 PEEP/40%FiO2. Showing clinical improvement with WBC down to 25.9, creatinine 1.25, and total bilirubin stable at 9.3. Hemoglobin stable at 8.7. AST and ALT downtrending. Lasix is being held due to hemorrhagic pancreatitis. Switch fluids to D5 half-normal saline at 100 mL per hour. WDW Dr Landry Discharge Planning Anticipate discharge once patient is clinically stable, time frame unclear. (Lorin Pollock MD R2) Attending Attestation Patient seen and examined. Case reviewed and discussed. Agree with plan of care as discussed with me and documented in the resident note. (Elena Landry MD) Problem List: (1) Pancreatitis ICD Codes: K85.90 - Acute pancreatitis without necrosis or infection, unspecified Plan: -Continue fluids. 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 Afebrile, respiratory rate intermittently increased. Continue Merrem IV as above -Pulmonology consulted for additional recommendations regarding management, appreciate recommendations -Continue Solumedrol 60mg IV BID -Duonebs q4h scheduled while awake -Continue albuterol nebs q2h PRN -Pulmicort 0.5mg nebs Imaging: AP CXR 12/23/17: Bilateral parenchymal infiltrates with consolidation of LLL AP CXR 12/22/17: Basilar and perihilar airspace consolidation similar to December 21 with small effusions AP CXR 12/21/17: Moderate CHF progression on CXR 12/21/17 PA/LAT CXR 12/16/17 : Mild hazy density in the right lung and left base Stable pulmonary infiltrates on 12/19 Antibiotic history: -Zosyn 3.375 g IV every 6 hours (12/01/17 -12/22/17) -Vancomycin IV (stopped 12/18/17) -Levaquin 750mg IV Daily (12/15-12/22/17) (6) Abdominal pain ICD Codes: R10.9 - Unspecified abdominal pain Status: Acute Plan: Stable -12/25: Non-tender to palpation today, bilirubin level stable -12/24: No change -12/23: Tender to light palpation with guarding -12/22: Abdominal pain stable -12/21: pt with no complaint of pain this morning. BP elevated to 150/89-- Metoprolol 37.5mg as above -12/20: BP intermittently elevated to 156/77, patient tender to palpation of abdomen. Catheter exchange and biopsy performed on 12/18. -12/19: BP elevated overnight to 169/93 but pt not complaining of abdominal pain ; consider hypovolemia/anemia for source of BP elevation -12/18: Cholangiogram and biopsies of stricture and mass outside the stricture; await pathology results; scheduled oxycodone q8h started due to elevated BPs. -IR re-assessed biliary drain on 12/16/16 and it was determined to be working properly; cholangiogram and -GI awaiting results of tumor bx before proceeding further * No plan for EUS until resolution of pancreatitis [place] and morphine IV as needed for pain CT findings as below MRCP findings as below Imaging: CT abdomen/pelvis:12/23/17: slight worsening of pancreatitis with increase in diameter and new free fluid in the pelvis, probable hepatic infarcts with internal/external biliary drain CT of the abdomen and pelvis: 12/19/17: 1. Progression in the extensive acute pancreatitis. No hemorrhage or infarction of the pancreas observed. 2. 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 This is new from the prior study. CT of the abdomen and pelvis: 12/04/17: Moderate volume hemoperitoneum. Interval placement of a right internal/external earlier a drainage catheter. Drain good position. CT of the abdomen and pelvis: 12/11/17: 1. Interval development of diffuse pancreatitis. Diffuse inflammatory changes surrounding the pancreas. 2. Previously noted fluid adjacent to the liver has resolved. 3. Internal/external biliary drainage catheter in place which appears to be in good position and unchanged in position compared to the prior study. 4. Small amount of free fluid deep in the pelvis. 5. Small bilateral pleural effusions. MRCP: 12/02/17: Significant dilation of the intrahepatic ducts ending in the confluence and possibility of stricture at the site or a lack since tumor which is not visualized should be entertained. Wedge-shaped focal fat right hepatic lobe (7) Liver hemorrhage ICD Codes: K76.89 - Other specified diseases of liver Status: Acute Plan: -S/P ex lap on 12/04 for liver laceration -CT abdomen/pelvis performed on 12/23 shows slight worsening of hemorrhagic pancreatitis with increased fluid or hemorrhage anterior to the pancreas and stomach in the omental region -Continue metoprolol to 37.5 mg by mouth every 8 hours in order to maintain SBP less than 140 BPM -Continue pain control -Continue to monitor with CBC with morning labs; will transfuse 1uPRBCs if Hgb < 7.0 as above (8) Hypothyroidism ICD Codes: E03.9 - Hypothyroidism, unspecified Status: Chronic Plan: Continue home Synthroid 100 mcg daily (9) Polymyalgia rheumatica ICD Codes: M35.3 - Polymyalgia rheumatica Status: Chronic Plan: On high-dose IV steroids Home prednisone dose is 5 mg by mouth daily (10) BPH (benign prostatic hyperplasia) ICD Codes: N40.0 - Benign prostatic hyperplasia without lower urinary tract symptoms Status: Chronic Plan: -Continue home finasteride (11) FEN/PPX Plan: Fluids: Managed by critical care, D5 1/2 normal saline at 100 mL per hour Electrolytes: Monitor and replace as needed, on ICU electrolyte placement protocol Nutrition: Nothing by mouth, consider OG feeds DVT prophylaxis: SCDs, holding pharmacologic prophylaxis due to recent pancreatitis bleed Constipation prophylaxis: Holding all anti-diarrheal medications. If more diarrhea, will check for C Diff due to long hx of abx (EkoLorin MD R2) Problem Qualifiers (1) Leukocytosis: Qualified Codes: D72.829 - Elevated white blood cell count, unspecified (2) Abdominal pain: Qualified Codes: R10.11 - Right upper quadrant pain (3) Hypothyroidism: Qualified Codes: E03.9 - Hypothyroidism, unspecified Lorin Pollock MD R2 Dec 25, 2017 08:57 Elena Landry MD Dec 29, 2017 09:15
[2017-12-25] MEDS: LACTULOSE SYRUP 20 GM/30 ML CUP OG-TUBE SCH (09:00)
[2017-12-25] MEDS: DEXT 5%-NACL 0.45% 1000 ML INJ 1,000 ML IV SCH (10:00)
[2017-12-25 10:02] LABS: MAGNESIUM 2.3 MG/DL (1.5-2.5); PHOSPHORUS 2.1 MG/DL (2.5-4.9)
--- NOTE | 2017-12-25 10:49 | HHI.GIFU ---
Subjective Remarks Pt in bed, on vent. at bedside. Per RN having copious liquid stools throughout night. (Kim Apodaca) Objective Vitals I&O Vital Signs Date Time Temp Pulse Resp B/P (MAP) Pulse Ox O2 Delivery O2 Flow Rate FiO2 12/25/17 08:57 97 40 12/25/17 06:00 84 12/25/17 05:22 98 40 12/25/17 04:00 40 12/25/17 04:00 112 12/25/17 04:00 98.8 112 15 98/68 (78) 98 12/25/17 03:24 98 40 12/25/17 02:00 93 12/25/17 00:00 40 12/25/17 00:00 98.9 82 14 144/67 (92) 98 12/25/17 00:00 82 12/24/17 23:27 97 40 12/24/17 22:00 71 12/24/17 20:09 99 40 12/24/17 20:00 98.7 67 14 124/58 (80) 98 12/24/17 20:00 40 12/24/17 20:00 67 12/24/17 16:18 100 100 12/24/17 16:00 40 12/24/17 16:00 76 12/24/17 15:00 98.3 71 14 118/58 (78) 97 12/24/17 14:51 97 40 12/24/17 14:00 69 14 134/63 (86) 99 12/24/17 14:00 76 12/24/17 13:00 70 14 116/59 (78) 97 12/24/17 12:00 40 12/24/17 12:00 72 12/24/17 12:00 97.9 72 14 108/56 (73) 97 12/24/17 11:33 96 40 12/24/17 11:07 50 12/24/17 11:00 90 5 130/57 (81) 96 I/O 12/24/17 12/24/17 12/24/17 12/25/17 12/25/17 12/25/17 07:00 15:00 23:00 07:00 15:00 23:00 Intake Total 1912 ml 974 ml 2340 ml 50 ml Output Total 900 ml 700 ml 600 ml Balance 1012 ml 974 ml 1640 ml -550 ml Intake Oral 0 ml 0 ml 0 ml IV Total 1402 ml 974 ml 2240 ml 50 ml Packed Cells 400 ml Blood Product IV Normal Saline Flush 50 ml Other 60 ml 100 ml Output Urine Total 675 ml 550 ml 550 ml Drainage Total 225 ml 150 ml 50 ml # Bowel Movements 0 1 4 Laboratory Laboratory Tests Test 12/24/17 15:30 12/25/17 02:40 12/25/17 02:45 Hemoglobin 8.4 8.7 Ammonia LESS THAN 10 White Blood Count 25.9 Red Blood Count 2.88 Hematocrit 25.6 Mean Corpuscular Volume 89.0 Mean Corpuscular Hemoglobin 30.3 Mean Corpuscular Hemoglobin Concent 34.0 Red Cell Distribution Width 17.1 Platelet Count 107 Mean Platelet Volume 10.0 Neutrophils (%) (Auto) 94.0 Lymphocytes (%) (Auto) 0.6 Monocytes (%) (Auto) 5.3 Eosinophils (%) (Auto) 0.0 Basophils (%) (Auto) 0.1 Neutrophils # (Auto) 24.4 Lymphocytes # (Auto) 0.2 Monocytes # (Auto) 1.4 Eosinophils # (Auto) 0.0 Basophils # (Auto) 0.0 CBC Comment DIFF FINAL Differential Comment Blood Urea Nitrogen 39 Creatinine 1.25 Random Glucose 146 Total Protein 5.5 Albumin 2.7 Calcium Level 9.4 Alkaline Phosphatase 136 Aspartate Amino Transf (AST/SGOT) 65 Alanine Aminotransferase (ALT/SGPT) 90 Total Bilirubin 9.3 Sodium Level 150 Potassium Level 3.4 Chloride Level 112 Carbon Dioxide Level 32.5 Anion Gap 6 Estimat Glomerular Filtration Rate 56 Phosphorus Level 2.1 Magnesium Level 2.3 Lipase 79 Date/Time Source Procedure Growth Status 12/22/17 20:20 Blood Peripheral Aerobic Blood Culture - Preliminary NO GROWTH IN 2 DAYS Resulted 12/22/17 20:20 Blood Peripheral Anaerobic Blood Culture - Preliminary NO GROWTH IN 2 DAYS Resulted 12/04/17 00:42 Fluid Bile Fluid Gram Stain - Final Complete 12/04/17 00:42 Body Fluid Culture - Final Marielle Albicans Complete 12/20/17 05:13 Stool Stool Stool Occult Blood (RADHA) - Final HEMOCCULT POSITIVE Complete 12/23/17 02:54 Urine Catheterized Urine Urine Culture - Final NO GROWTH IN 48 HOURS. Complete 12/14/17 00:30 Wound Abdomen Gram Stain - Final Complete 12/14/17 00:30 Wound Abdomen Wound Culture - Final NO GROWTH IN 72 HRS.--AEROBICALLY OR ... Complete Imaging Last Impressions Chest X-Ray 12/24/17 0600 Signed Impressions: Service Date/Time: Sunday, December 24, 2017 03:03 - CONCLUSION: 1. ET tube tip is at the abelardo and needs to be withdrawn 2 cm. 2. Increasing bilateral parenchymal infiltrates with consolidation in the left lower lobe. Jung Cevallos MD GI Bleed Scan Nuclear Medicine 12/24/17 0000 Signed Impressions: Service Date/Time: Sunday, December 24, 2017 16:43 - CONCLUSION: 1. Negative for active GI bleeding. Ronnie Donis MD Upper Extremity Ultrasound 12/23/17 0000 Signed Impressions: Service Date/Time: Saturday, December 23, 2017 13:09 - CONCLUSION: 1. Positive for superficial thrombus in the left cephalic vein. No deep venous thrombosis. Ronnie Donis MD Abdomen/Pelvis CT 12/23/17 0000 Signed Impressions: Service Date/Time: Saturday, December 23, 2017 17:21 - CONCLUSION: 1. Slight worsening of presumed hemorrhagic pancreatitis with heterogeneous increased density in the pancreas. Measurements given above. Also increased fluid or hemorrhage anterior to the pancreas and stomach in the omental region. 2. Slight worsening of left pleural effusion. 3. Stable right pleural effusion, perisplenic fluid and stable fluid in left paracolic gutter and pelvis. 4. Mild anasarca. Ronnie Donis MD Celiac/Hepatic Arteriogram 12/20/17 0000 Signed Impressions: Service Date/Time: Wednesday, December 20, 2017 15:32 - CONCLUSION: 1. 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 Followup angiography demonstrated complete exclusion of the pseudoaneurysm and fistula with normal appearing flow within the hepatic branches. Lion Leahy MD Biopsy X-Ray 12/18/17 0000 Signed Impressions: Service Date/Time: December 14:47 - CONCLUSION: Uncomplicated fluoroscopic guided biliary forceps biopsy and internal/external drainage catheter exchange as described in detail above Landry Mitchell MD Cholangiogram 12/16/17 0000 Signed Impressions: Service Date/Time: Saturday, December 16, 2017 17:07 - CONCLUSION: There is no drainage catheter complication. The patient does not have significant accumulation of abdominal ascites along the liver surface to potentially exacerbate fluid leakage along the tube tract. The fluid drainage appears to be benign serosanguinous. Dressing changes p.r.n. recommended. Landry Mitchell MD Abdomen Ultrasound 12/14/17 0000 Signed Impressions: Service Date/Time: Thursday, December 14, 2017 09:01 - CONCLUSION: Limited study due to bandages on the abdomen and bowel gas. Focal fatty infiltration right lobe of liver again seen. Gallbladder appears collapsed. Minimal ascites. Jerry Laureano MD Abdomen X-Ray 12/13/17 0000 Signed Impressions: Service Date/Time: Wednesday, December 13, 2017 18:55 - CONCLUSION: Nothing acute demonstrated. Nonobstructive bowel gas pattern and no free air. Evidence of right upper quadrant surgery and a internal/external biliary drainage catheter again noted. Landry Ryan MD Head CT 12/09/17 0000 Signed Impressions: Service Date/Time: Saturday, December 09, 2017 20:02 - CONCLUSION: Negative noncontrast head CT. Landry Ryan MD Bile Duct Drainage 12/03/17 0000 Signed Impressions: Service Date/Time: Sunday, December 03, 2017 14:10 - CONCLUSION: Uncomplicated biliary stent placement as above. Bj Hurtado MD Cholangiopancreatography MRI 12/02/17 0000 Signed Impressions: Service Date/Time: Saturday, December 02, 2017 08:17 - CONCLUSION: 1. Significant dilatation of the intrahepatic ducts ending at the confluence and possibility of stricture at this site or a Klatskin's tumor which is not visualized should be entertained. 2. Wedge-shaped focal fat right hepatic lobe. Luz Jean MD Physical Exam HEENT: Normocephalic; atraumatic, eyes icteric, intubated CHEST: wheezes CARDIAC: RRR ABDOMEN: distended, taut, diffuse TTP EXTREMITIES: No clubbing, cyanosis, BLE edema SKIN: + jaundice. 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 CT with contrast 12/23 showed worsening presumed hemorrhagic pancreatitis, increased fluid or hemorrhage anterior to pancreas and stomach. less tender today - Capsular tear liver, s/p ex lap and control liver laceration bleed. 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 plan for liver bx when stable goals remain aggressive per palliative care - leukocytosis - WBC trending down ID following Plan: - ok to hold lactulose - abx per ID - Monitor labs - Transfuse as needed - will need liver bx, timing TBD - continue supportive care Pt has been seen and examined by myself and and this note has been written on his behalf (Kim Apodaca) Plan patient was seen and examined, agree with above note. liver Bx when more stable (Eren Saunders MD) Kim Apodaca Dec 25, 2017 10:49 Eren Saunders MD Dec 25, 2017 18:15
--- NOTE | 2017-12-25 12:50 | PD.ONC.PN ---
Subjective Subjective Remarks Afebrile overnight. Remains intubated. sedated. No bleeding from lines or ET tube. on CPAP trials this AM per nurse. Objective Data Date Time Temp Pulse Resp B/P (MAP) Pulse Ox O2 Delivery O2 Flow Rate FiO2 12/25/17 11:24 94 40 12/25/17 11:23 40 12/25/17 08:57 97 40 12/25/17 08:00 99.0 93 14 143/66 (91) 97 12/25/17 06:00 84 12/25/17 05:22 98 40 12/25/17 04:00 40 12/25/17 04:00 112 12/25/17 04:00 98.8 112 15 98/68 (78) 98 12/25/17 03:24 98 40 12/25/17 02:00 93 12/25/17 00:00 40 12/25/17 00:00 98.9 82 14 144/67 (92) 98 12/25/17 00:00 82 12/24/17 23:27 97 40 12/24/17 22:00 71 12/24/17 20:09 99 40 12/24/17 20:00 98.7 67 14 124/58 (80) 98 12/24/17 20:00 40 12/24/17 20:00 67 12/24/17 16:18 100 100 12/24/17 16:00 40 12/24/17 16:00 76 12/24/17 15:00 98.3 71 14 118/58 (78) 97 12/24/17 14:51 97 40 12/24/17 14:00 69 14 134/63 (86) 99 12/24/17 14:00 76 12/24/17 13:00 70 14 116/59 (78) 97 12/25/17 12/25/17 12/25/17 07:00 15:00 23:00 Intake Total 50 ml Output Total 600 ml Balance -550 ml Result Diagram: 12/25/1724412/25/17244 Laboratory Results Laboratory Tests Test 12/24/17 15:30 12/25/17 02:40 12/25/17 02:45 Hemoglobin 8.4 GM/DL 8.7 GM/DL Ammonia LESS THAN 10 MCMOL/L White Blood Count 25.9 TH/MM3 Red Blood Count 2.88 MIL/MM3 Hematocrit 25.6 % Mean Corpuscular Volume 89.0 FL Mean Corpuscular Hemoglobin 30.3 PG Mean Corpuscular Hemoglobin Concent 34.0 % Red Cell Distribution Width 17.1 % Platelet Count 107 TH/MM3 Mean Platelet Volume 10.0 FL Neutrophils (%) (Auto) 94.0 % Lymphocytes (%) (Auto) 0.6 % Monocytes (%) (Auto) 5.3 % Eosinophils (%) (Auto) 0.0 % Basophils (%) (Auto) 0.1 % Neutrophils # (Auto) 24.4 TH/MM3 Lymphocytes # (Auto) 0.2 TH/MM3 Monocytes # (Auto) 1.4 TH/MM3 Eosinophils # (Auto) 0.0 TH/MM3 Basophils # (Auto) 0.0 TH/MM3 CBC Comment DIFF FINAL Differential Comment Blood Urea Nitrogen 39 MG/DL Creatinine 1.25 MG/DL Random Glucose 146 MG/DL Total Protein 5.5 GM/DL Albumin 2.7 GM/DL Calcium Level 9.4 MG/DL Alkaline Phosphatase 136 U/L Aspartate Amino Transf (AST/SGOT) 65 U/L Alanine Aminotransferase (ALT/SGPT) 90 U/L Total Bilirubin 9.3 MG/DL Sodium Level 150 MEQ/L Potassium Level 3.4 MEQ/L Chloride Level 112 MEQ/L Carbon Dioxide Level 32.5 MEQ/L Anion Gap 6 MEQ/L Estimat Glomerular Filtration Rate 56 ML/MIN Phosphorus Level 2.1 MG/DL Magnesium Level 2.3 MG/DL Lipase 79 U/L Culture Results Microbiology Date/Time Source Procedure Growth Status 12/22/17 20:20 Blood Peripheral Aerobic Blood Culture - Preliminary NO GROWTH IN 3 DAYS Resulted 12/22/17 20:20 Blood Peripheral Anaerobic Blood Culture - Preliminary NO GROWTH IN 3 DAYS Resulted 12/22/17 20:20 Blood Peripheral Aerobic Blood Culture - Preliminary NO GROWTH IN 3 DAYS Resulted 12/22/17 20:20 Blood Peripheral Anaerobic Blood Culture - Preliminary NO GROWTH IN 3 DAYS Resulted 12/23/17 02:54 Urine Catheterized Urine Urine Culture - Final NO GROWTH IN 48 HOURS. Complete Administered Medications Medications (Trade) Dose Ordered Sig/Rafa Route PRN Reason Start Time Stop Time Status Last Admin Dose Admin Sodium Chloride (NS Flush) 2 ml BID IV FLUSH 12/01/17 21:00 12/25/17 08:25 Ondansetron HCl (Zofran Inj) 4 mg Q6H PRN IVP NAUSEA OR VOMITING 12/01/17 11:00 12/16/17 06:18 Finasteride (Proscar) 5 mg DAILY PO 12/02/17 09:00 Future hold 12/25/17 08:25 Prednisone (Deltasone) 5 mg DAILY PO 12/02/17 09:00 Future Hold 12/15/17 11:52 Chlorhexidine Gluconate (Peridex 0.12% Liq) 15 ml BID@08,20 MT 12/04/17 08:00 12/25/17 08:26 Fluconazole/ Sodium Chloride 200 ml @ 100 mls/hr Q24H IV 12/06/17 17:00 12/24/17 15:58 Albuterol Sulfate (Albuterol Neb) 2.5 mg Q2HR NEB PRN NEB dyspnea 12/05/17 22:00 12/23/17 10:07 Pantoprazole Sodium (Protonix Inj) 40 mg DAILY IV PUSH 12/10/17 09:00 12/25/17 08:24 Budesonide (Pulmicort Respule Neb) 0.5 mg Q12HR NEB NEB 12/12/17 09:45 12/25/17 07:46 Potassium Chloride (KCl) 20 meq DAILY PO 12/14/17 09:00 Future Hold 12/24/17 08:44 Ursodiol (Actigall) 300 mg Q12HR PO 12/13/17 21:00 12/25/17 08:24 Albumin Human 50 ml @ 60 mls/hr Q12H IV 12/14/17 12:00 12/25/17 11:32 Furosemide (Lasix Inj) 20 mg DAILY@1215 IV PUSH 12/14/17 12:15 Future Hold 12/22/17 12:13 Oxycodone HCl (Roxicodone) 5 mg Q8H PO 12/18/17 17:00 Future Hold 12/24/17 08:43 Prednisone (Deltasone) 40 mg BID PO 12/20/17 21:00 Future Hold 12/22/17 09:00 Sodium Chloride (NS Flush) 2 ml UNSCH PRN IV FLUSH FLUSH AFTER USING IV ACCESS 12/21/17 07:45 12/24/17 08:42 Metoprolol Tartrate (Lopressor) 37.5 mg Q8HR PO 12/21/17 14:00 Future Hold 12/22/17 13:23 Methylprednisolone Sodium Succinate (SoluMEDROL INJ) 60 mg Q12HR IV PUSH 12/22/17 12:15 12/25/17 08:24 Miscellaneous Information Patient in critical care unit? Ass... [id number] .XX 12/22/17 19:30 12/22/17 19:30 Chlorhexidine Gluconate (Chlorhexidine 2% Cloth) 3 pack DAILY@04 TOPICAL 12/23/17 04:00 12/27/17 04:01 12/25/17 00:25 Fentanyl Citrate 250 ml @ 5 mls/hr TITRATE PRN IV SEDATION 12/23/17 12:30 12/24/17 21:27 Albuterol/ Ipratropium (Duoneb Neb) 1 ampule Q4HR NEB NEB 12/23/17 16:00 12/25/17 11:22 Senna/Docusate Sodium (Deedee-Colace) 1 tab BID OG-TUBE 12/24/17 21:00 Future Hold 12/24/17 21:26 Levothyroxine Sodium (Synthroid) 100 mcg DAILY@0600 OG-TUBE 12/25/17 06:00 12/25/17 05:17 Dextrose/Sodium Chloride 1,000 ml @ 100 mls/hr Q10H IV 12/25/17 08:30 12/25/17 10:00 Objective Remarks GENERAL: intubated, sedated male, lying on left side in hospital bed. SKIN: Warm and dry. HEAD: Normocephalic. EYES: No injection or drainage. NECK: Supple, trachea midline. CARDIOVASCULAR: +S1/S2, tachy RESPIRATORY: anterior ferguson with scattered rhonchi. on mechanical ventilation GASTROINTESTINAL: Abdomen distended, tender to palpation. EXTREMITIES: No cyanosis NEUROLOGICAL: intubated, sedated Assessment/Plan Problem List: (1) Leukocytosis ICD Codes: D72.829 - Elevated white blood cell count, unspecified Status: Acute Plan: --most likely inflammatory and due to underlying infection. --monitor and recommend treating underlying cause of inflammation/infection (2) Pancreatitis ICD Codes: K85.90 - Acute pancreatitis without necrosis or infection, unspecified Plan: --most recent CT showed hemorrhagic pancreatitis. (3) Sepsis ICD Codes: A41.9 - Sepsis, unspecified organism Status: Resolved (4) Normocytic anemia ICD Codes: D64.9 - Anemia, unspecified Plan: --likely d/t blood loss-coags prolonged as well. --TIBC low, ferritin elevated, consistent with inflammation --B12-->no deficiency --monitor and transfuse as needed. Assessment 82y/o male with persistent leukocytosis. history of polymyalgia rheumatica, hyperlipidemia and benign prostate hypertrophy (from initial consult, brought forward for continuity of care): Initially admitted on December 01 with right upper quadrant pain and jaundice. His liver functions were abnormal indicating an obstructive pattern. In the emergency department, he had CT imaging which showed intrahepatic dilatation. The patient was evaluated by gastroenterology and underwent an MRCP. 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 He underwent percutaneous biliary stent placement and draining interventional radiology. Postprocedure he became hypotensive requiring aggressive fluid resuscitation and steroids. He developed a biliary sepsis and was placed on antibiotics. Then he became hypotensive and was transferred to the intensive care unit. He began to develop leukocytosis and there was also drop in his hemoglobin. He required pressors and blood product support. A CT of the abdomen was obtained, which showed hemoperitoneum and hemorrhage adjacent to the liver. The biliary drain was in good position. He then underwent emergent laparotomy. He has been requiring packed red blood cells and fresh frozen plasma support. He has also received platelets and prior transfusions. The patient has remained tachycardiac; however he is somewhat improved today. He has persistent leukocytosis. He is being followed by infectious disease. There was Marielle albicans growing in the biliary culture. He also developed a urinary tract infection on admission with Staph epidermidis. Blood cultures have been negative. He is currently on antibiotics. CT of the abdomen and pelvis from 12/11 revealed pancreatitis but resolution of the hemoperitoneum. Plan 1. monitor CBC 2. check coags. fibrinogen. Attending Statement The exam, history, and the medical decision-making described in the above note were completed with the assistance of the mid-level provider. I reviewed and agree with the findings presented. I attest that I had a [id number] encounter with the patient on the same day, and personally performed and documented my assessment and findings in the medical records critically ill patient. Leukocytosis is likely reactive Bone marrow biopsy not possible at this time due to acute decompensation Problem Qualifiers (1) Leukocytosis: Qualified Codes: D72.829 - Elevated white blood cell count, unspecified (2) Sepsis: Qualified Codes: A41.9 - Sepsis, unspecified organism Tressa Galvez Dec 25, 2017 12:50 Keith Miller MD Dec 25, 2017 21:51
[2017-12-25 13:40] LABS: INTERNATIONAL NORMALIZED RATIO 1.9 RATIO; PROTHROMBIN TIME - PATIENT 19.2 SEC (9.8-11.6)
[2017-12-25] MEDS ORDERED: DEXTROSE 50% IN WATER 50 ML VIAL(D50) IV PUSH PRN (14:30)
[2017-12-25] MEDS ORDERED: GLUCAGON 1 MG/ML VIAL OTHER PRN (14:30)
[2017-12-25] MEDS: fentaNYL DRIP 250 ML IV PRN (15:05)
--- NOTE | 2017-12-25 15:59 | HHI.IDPN ---
Subjective Subjective Remarks somewhat improved overall more stable temps and WBC trending down WBC 25 K today Antibiotics meropenem fluconazol Past Medical History Allergies: Coded Allergies: No Known Allergies (Unverified Allergy, Unknown, 12/01/17) Objective . Vital Signs Date Time Temp Pulse Resp B/P (MAP) Pulse Ox O2 Delivery O2 Flow Rate FiO2 12/25/17 15:27 97 40 12/25/17 12:00 100.2 100 14 141/65 (90) 96 12/25/17 11:24 94 40 12/25/17 11:23 40 12/25/17 08:57 97 40 12/25/17 08:00 99.0 93 14 143/66 (91) 97 12/25/17 06:00 84 12/25/17 05:22 98 40 12/25/17 04:00 40 12/25/17 04:00 112 12/25/17 04:00 98.8 112 15 98/68 (78) 98 12/25/17 03:24 98 40 12/25/17 02:00 93 12/25/17 00:00 40 12/25/17 00:00 98.9 82 14 144/67 (92) 98 12/25/17 00:00 82 12/24/17 23:27 97 40 12/24/17 22:00 71 12/24/17 20:09 99 40 12/24/17 20:00 98.7 67 14 124/58 (80) 98 12/24/17 20:00 40 12/24/17 20:00 67 12/24/17 16:18 100 100 12/24/17 16:00 40 12/24/17 16:00 76 . Laboratory Tests Test 12/23/17 23:58 12/24/17 04:32 12/24/17 15:30 12/25/17 02:45 White Blood Count 32.1 TH/MM3 30.6 TH/MM3 25.9 TH/MM3 Red Blood Count 2.71 MIL/MM3 2.67 MIL/MM3 2.88 MIL/MM3 Hemoglobin 7.9 GM/DL 8.0 GM/DL 8.4 GM/DL 8.7 GM/DL Hematocrit 23.8 % 23.6 % 25.6 % Mean Corpuscular Volume 87.6 FL 88.3 FL 89.0 FL Mean Corpuscular Hemoglobin 29.3 PG 29.9 PG 30.3 PG Mean Corpuscular Hemoglobin Concent 33.4 % 33.8 % 34.0 % Red Cell Distribution Width 16.5 % 17.0 % 17.1 % Platelet Count 80 TH/MM3 78 TH/MM3 107 TH/MM3 Mean Platelet Volume 10.2 FL 10.2 FL 10.0 FL CBC Comment AUTO DIFF DIFF FINAL Differential Total Cells Counted 100 Neutrophils % (Manual) 88 % Band Neutrophils % 2 % Lymphocytes % 4 % Monocytes % 6 % Neutrophils # (Manual) 27.5 TH/MM3 Differential Comment FINAL DIFF MANUAL Platelet Estimate LOW Platelet Morphology Comment NORMAL Basophilic Stippling MOD Ovalocytes 1+ Neutrophils (%) (Auto) 94.0 % Lymphocytes (%) (Auto) 0.6 % Monocytes (%) (Auto) 5.3 % Eosinophils (%) (Auto) 0.0 % Basophils (%) (Auto) 0.1 % Neutrophils # (Auto) 24.4 TH/MM3 Lymphocytes # (Auto) 0.2 TH/MM3 Monocytes # (Auto) 1.4 TH/MM3 Eosinophils # (Auto) 0.0 TH/MM3 Basophils # (Auto) 0.0 TH/MM3 Laboratory Tests Test 12/24/17 04:32 12/25/17 02:40 12/25/17 02:45 Blood Urea Nitrogen 39 MG/DL 39 MG/DL Creatinine 1.47 MG/DL 1.25 MG/DL Random Glucose 160 MG/DL 146 MG/DL Total Protein 5.2 GM/DL 5.5 GM/DL Albumin 2.5 GM/DL 2.7 GM/DL Calcium Level 9.0 MG/DL 9.4 MG/DL Magnesium Level 2.1 MG/DL 2.3 MG/DL Alkaline Phosphatase 112 U/L 136 U/L Aspartate Amino Transf (AST/SGOT) 91 U/L 65 U/L Alanine Aminotransferase (ALT/SGPT) 103 U/L 90 U/L Total Bilirubin 9.7 MG/DL 9.3 MG/DL Sodium Level 147 MEQ/L 150 MEQ/L Potassium Level 3.5 MEQ/L 3.4 MEQ/L Chloride Level 107 MEQ/L 112 MEQ/L Carbon Dioxide Level 33.7 MEQ/L 32.5 MEQ/L Anion Gap 6 MEQ/L 6 MEQ/L Estimat Glomerular Filtration Rate 46 ML/MIN 56 ML/MIN Ammonia LESS THAN 10 MCMOL/L Phosphorus Level 2.1 MG/DL Lipase 79 U/L Microbiology Date/Time Source Procedure Growth Status 12/22/17 20:20 Blood Peripheral Aerobic Blood Culture - Preliminary NO GROWTH IN 3 DAYS Resulted 12/22/17 20:20 Blood Peripheral Anaerobic Blood Culture - Preliminary NO GROWTH IN 3 DAYS Resulted 12/22/17 20:20 Blood Peripheral Aerobic Blood Culture - Preliminary NO GROWTH IN 3 DAYS Resulted 12/22/17 20:20 Blood Peripheral Anaerobic Blood Culture - Preliminary NO GROWTH IN 3 DAYS Resulted 12/23/17 02:54 Urine Catheterized Urine Urine Culture - Final NO GROWTH IN 48 HOURS. Complete Imaging Last Impressions Chest X-Ray 12/24/17 0600 Signed Impressions: Service Date/Time: Sunday, December 24, 2017 03:03 - CONCLUSION: 1. ET tube tip is at the abelardo and needs to be withdrawn 2 cm. 2. Increasing bilateral parenchymal infiltrates with consolidation in the left lower lobe. Jung Cevallos MD GI Bleed Scan Nuclear Medicine 12/24/17 0000 Signed Impressions: Service Date/Time: Sunday, December 24, 2017 16:43 - CONCLUSION: 1. Negative for active GI bleeding. Ronnie Donis MD Upper Extremity Ultrasound 12/23/17 0000 Signed Impressions: Service Date/Time: Saturday, December 23, 2017 13:09 - CONCLUSION: 1. Positive for superficial thrombus in the left cephalic vein. No deep venous thrombosis. Ronnie Donis MD Abdomen/Pelvis CT 12/23/17 0000 Signed Impressions: Service Date/Time: Saturday, December 23, 2017 17:21 - CONCLUSION: 1. Slight worsening of presumed hemorrhagic pancreatitis with heterogeneous increased density in the pancreas. Measurements given above. Also increased fluid or hemorrhage anterior to the pancreas and stomach in the omental region. 2. Slight worsening of left pleural effusion. 3. Stable right pleural effusion, perisplenic fluid and stable fluid in left paracolic gutter and pelvis. 4. Mild anasarca. Ronnie Donis MD Celiac/Hepatic Arteriogram 12/20/17 0000 Signed Impressions: Service Date/Time: Wednesday, December 20, 2017 15:32 - CONCLUSION: 1. 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 Followup angiography demonstrated complete exclusion of the pseudoaneurysm and fistula with normal appearing flow within the hepatic branches. Lion Laehy MD Biopsy X-Ray 12/18/17 0000 Signed Impressions: Service Date/Time: December 14:47 - CONCLUSION: Uncomplicated fluoroscopic guided biliary forceps biopsy and internal/external drainage catheter exchange as described in detail above Landry Mitchell MD Cholangiogram 12/16/17 0000 Signed Impressions: Service Date/Time: Saturday, December 16, 2017 17:07 - CONCLUSION: There is no drainage catheter complication. The patient does not have significant accumulation of abdominal ascites along the liver surface to potentially exacerbate fluid leakage along the tube tract. The fluid drainage appears to be benign serosanguinous. Dressing changes p.r.n. recommended. Landry Mitchell MD Abdomen Ultrasound 12/14/17 0000 Signed Impressions: Service Date/Time: Thursday, December 14, 2017 09:01 - CONCLUSION: Limited study due to bandages on the abdomen and bowel gas. Focal fatty infiltration right lobe of liver again seen. Gallbladder appears collapsed. Minimal ascites. Jerry Laureano MD Abdomen X-Ray 12/13/17 0000 Signed Impressions: Service Date/Time: Wednesday, December 13, 2017 18:55 - CONCLUSION: Nothing acute demonstrated. Nonobstructive bowel gas pattern and no free air. Evidence of right upper quadrant surgery and a internal/external biliary drainage catheter again noted. Landry Ryan MD Head CT 12/09/17 0000 Signed Impressions: Service Date/Time: Saturday, December 09, 2017 20:02 - CONCLUSION: Negative noncontrast head CT. Landry Ryan MD Bile Duct Drainage 12/03/17 0000 Signed Impressions: Service Date/Time: Sunday, December 03, 2017 14:10 - CONCLUSION: Uncomplicated biliary stent placement as above. Bj Hurtado MD Cholangiopancreatography MRI 12/02/17 0000 Signed Impressions: Service Date/Time: Saturday, December 02, 2017 08:17 - CONCLUSION: 1. Significant dilatation of the intrahepatic ducts ending at the confluence and possibility of stricture at this site or a Klatskin's tumor which is not visualized should be entertained. 2. Wedge-shaped focal fat right hepatic lobe. K. Gurvinder Jean MD Physical Exam CONSTITUTIONAL/GENERAL: intubated, on vent Barely responds TUBES/LINES/DRAINS: SKIN: + quite jaundiced, no rashes, or lesions. Skin temperature appropriate. Not diaphoretic. HEENT; dry mucosae, intense icterus CARDIOVASCULAR: Regular rate and rhythm without murmurs, gallops, or rubs. No JVD. Peripheral pulses symmetric. RESPIRATORY/CHEST: Symmetric, unlabored respirations. Clear to auscultation. Breath sounds equal bilaterally. No wheezes, rales, or rhonchi. GASTROINTESTINAL: Abdomen less tense and still very tender to even very light palpation and marked distention + guarding, rebound Biliary drain in place with light yellow bile GENITOURINARY: Without palpable bladder distension. Condom catheter in place with intense yellow urine in bagh MUSCULOSKELETAL: Extremities without clubbing, cyanosis, + edema. No joint tenderness or effusion noted. No calf tenderness. No mottling or clubbing. NEUROLOGICAL: sedated, arousable follows commands PSYCHIATRIC: unable to assess Assessment & Plan Remarks Acute hypovolemic shock following bleeding 2/2 complicaion of biliary stent placement sp emergent surgery - shock cliniocally resolved Obstructive jaundiced, ethiology not yet established sp biliary stent placement candidal cholangitis Sepsis Leukocytosis, leukemoid reaction - improving initilaly ; worse again Acute VDRF - resolved ARF- resolved Pt significant ly improved clinically Staph epi bacteriuria - doubt clin significance - not a trypical urinary pathogen Pancreatitis by CT finding , but lipase amylase wnl ? aspiration PNA Dysphagia, on thickened liquids now New issue: suspecting new sepsis with WBC of 60 K and renal insufficiency sp IR procedure Dec 20 WBC going down Hemooragic pancreatitis - worse lipase 800 Critically ill, but overall improving More stable today improved ARF cont meropenem, full dose cont fluconazole @ 400 mg IV Brigette Gill MD Dec 25, 2017 15:59
--- NOTE | 2017-12-25 16:19 | HHI.CCPN ---
Subjective Remarks/Hospital Course 82-year-old male with past history of BPH, hyperlipidemia, PMR who is admitted to [facility] 12/01/17 with right upper quadrant abdominal pain and jaundice. LFTs were elevated in an obstructive pattern. CT demonstrated intrahepatic biliary duct dilatation. A mass was not clearly seen. 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 He underwent percutaneous biliary stent placement and drain by interventional radiology 12/03/17 (Dr. Hurtado). He was hypotensive post procedure and this was initially managed by family and consumer science professor with 1.5 L fluid resuscitation and stress dose steroids, abx for possible biliary sepsis. Hypotension persisted and he was transferred to ICU with critical care medicine consult. When I went to evaluate the patient he appeared pale with cool skin concerning for hemorrhagic shock. CBC demonstrated leukocytosis 27.5 and hemoglobin was 9.4 from a baseline of 13. Place central line and art line, started neosynephrine, began transfusing blood products until appropriately stabilized for transition to CT scanner. CT scan demonstrated moderate hemoperitoneum with hemorrhage adjacent to the liver. The biliary drain was in good position. Called Dr. Montero who will take patient to OR for emergent laparotomy. agreeable to risks of surgery. Upon transition to OR he had received PRBC 7 units, 2 units FFP and 1 gram calcium chloride with 1 more unit of FFP, 1 unit platelets, 1 unit cryo ready to transfuse. 12/04/17: Status post exploratory laparotomy and control of liver laceration bleeding by Dr. montero, findinL hemoperitoneum, Capsular tear Segment of the liver. Remains on Chas-Synephrine at 50 mcg/m. Repeat lab work showed platelet count of 50 hemoglobin of 11.9. Platelet transfusion ordered. at the bedside 12/05/17: Tolerating CPAP, follows commands but tachycardic. White count increased to 52,000 biliary fluid with Jabari. I have increase Diflucan to 400 mg daily and consulted ID. Urine output minimal, no response to fluid bolus. Weight up by 10 kg, will attempt diuresis 12/06/17: Extubated yesterday. Breathing comfortably. Tachycardic up to 160s, white count remains high at 50,000, tachycardia most likely from SIRS response/ sepsis. Responded to beta thania. Urine output adequate with Lasix. 16 KG fluid up. Start scheduled Lasix 40 mg IV every 8 hours with IV albumin. Keep nothing by mouth until cleared by general surgery 12/07: Afebrile. Heart rate in the 120s. Off all vasopressors. Tolerating full liquid diet. Positive BM 1. Pain control. 12/08: Afebrile. Pulse less than 100. Tolerating full liquid diet. Positive BM. Pain is controlled. 12/09: Currently Tmax 99.3. Elevated WBC again today. Tachycardic with movement. Pleasantly confused but redirectable. CT brain pending. 12/10: Afebrile. Slightly downtrending WBC count. Agitated overnight. CT brain no acute findings. Ammonia level slightly elevated at 43. Less tachycardic on scheduled metoprolol. 12/11: Afebrile. Tolerating oral diet. Biliary drain with 825 output overnight. ANI with minimal output 25 cc.. Requesting glass of water 12/12: Tmax 99.3. Currently 99.1. 6. A biliary drain overnight. CT revealed pancreatitis likely from biliary drain. No other focal evidence of discrete infection identified. 12/22: WBC again 60, worsening renal function, borderline hypotension, transferred back to ICU 12/23: In obvious respiratory distress, tachypneic using accessory muscles bilateral wheezes despite breathing treatments. Worsening renal function creatinine 1.[address] of the abdomen and pelvis from yesterday shows worsening pancreatitis, pelvic free fluid, but no evidence of necrotizing pancreatitis. I discussed with the patient and , will proceed with endotracheal intubation and central line placement. WBC remains elevated at 55K with left shift 12/24: Critically ill remains intubated off pressors. WBC count improved from 55 ,[address] of this abdomen pelvis done yesterday shows worsening hemorrhagic pancreatitis and intraperitoneal blood. GI and general surgery following not a surgical candidate. Dr. Fox discussed with Dr. Celeste. Get bleeding scan and also possible pull back the biliary catheter (to avoid obstruction of pancreatic duct) 12/25: Remains intubated, critical but stable. EBC31 to 25, creat improved to 1.2 from 1.5 UO 1.1L..Bb remains elevated, but trending down, 9.3 today. Had diarrhea overnight, C. difficile requested. At the bedside updated. Objective Vital Signs Date Time Temp Pulse Resp B/P (MAP) Pulse Ox O2 Delivery O2 Flow Rate FiO2 12/25/17 15:27 97 40 12/25/17 12:00 100.2 100 14 141/65 (90) 12/23/17 19:00 Mechanical Ventilator 12/23/17 10:00 6.00 Intake and Output 12/25/17 12/25/17 12/26/17 08:00 16:00 00:00 Intake Total 50 ml Output Total 600 ml Balance -550 ml Result Diagram: 12/25/17 0245 12/25/17 0245 Other Results Microbiology Date/Time Source Procedure Growth Status 12/23/17 02:54 Urine Catheterized Urine Urine Culture - Final NO GROWTH IN 48 HOURS. Complete Imaging Last Impressions Abdomen/Pelvis CT 12/11/17 0000 Signed Impressions: Service Date/Time: December 23:42 - CONCLUSION: 1. There has been interval development of diffuse pancreatitis. There is diffuse inflammatory changes surrounding the pancreas. 2. The previously noted fluid adjacent to the liver has resolved. 3. There is an internal/external biliary drainage catheter in place which appears to be in good position and unchanged in position compared to the prior study. 4. There is a small amount of free fluid deep in the pelvis. 5. Small bilateral pleural effusions. Nathen Ruano MD Head CT 12/09/17 0000 Signed Impressions: Service Date/Time: Saturday, December 09, 2017 20:02 - CONCLUSION: Negative noncontrast head CT. Landry Ryan MD Chest X-Ray 12/07/17 0600 Signed Impressions: Service Date/Time: Thursday, December 07, 2017 04:09 - CONCLUSION: No significant change. Persistent left pleural effusion and left lower lobe atelectasis versus consolidation. Jerry Laureano MD Abdomen X-Ray 12/03/17 1808 Signed Impressions: Service Date/Time: Sunday, December 03, 2017 18:15 - CONCLUSION: Nonspecific abdomen. KLivier Jean MD Bile Duct Drainage 12/03/17 0000 Signed Impressions: Service Date/Time: Sunday, December 03, 2017 14:10 - CONCLUSION: Uncomplicated biliary stent placement as above. Bj Hurtado MD Cholangiopancreatography MRI 12/02/17 0000 Signed Impressions: Service Date/Time: Saturday, December 02, 2017 08:17 - CONCLUSION: 1. Significant dilatation of the intrahepatic ducts ending at the confluence and possibility of stricture at this site or a Klatskin's tumor which is not visualized should be entertained. 2. Wedge-shaped focal fat right hepatic lobe. Luz Jean MD Abdomen Ultrasound 12/01/17 0000 Signed Impressions: Service Date/Time: Friday, December 01, 2017 11:49 - CONCLUSION: 1. Intrahepatic biliary duct dilatation better seen on the CT examination. A lesion at the biliary duct confluence/common hepatic duct region still needs to be suspected. An ERCP or MRCP could be used to further evaluate this region. 2. Suspected area of focal hepatic steatosis at the anterior segment right lobe of the liver. 3. Gallstones Landry Zarate MD Objective Remarks GENERAL: Pale appearing male, intubated sedated. Jaundiced SKIN: Skin is jaundiced and pale HEAD: Atraumatic. Normocephalic. EYES: Pupils equal and round about 3 mm bilaterally and reactive. Pallor+ positive scleral icterus ENT: No nasal bleeding or discharge. Mucous membranes moist and pink. Oropharynx without erythema NECK: Trachea midline. CARDIOVASCULAR: Tachycardic, RR. S1, S2. No S4. Without murmur RESPIRATORY: Air entry equal bilaterally with minimal expiratory wheezing. Scattered rhonchi GASTROINTESTINAL: Biliary and peritoneal drain in place. Well healed ex lap incision. Diffuse abdominal tenderness MUSCULOSKELETAL: Extremities without deformity. NEUROLOGICAL: Intubated sedated but wakes up. Follows commands intermittently Urinary Catheter: Yes Assessment to: Continue Vascular Central Line Catheter: Yes Assessment to: Continue A/P Problem List: (1) Hemorrhagic shock ICD Code: R57.8 - Other shock Status: Acute (2) BPH (benign prostatic hyperplasia) ICD Code: N40.0 - Benign prostatic hyperplasia without lower urinary tract symptoms Status: Chronic (3) Intrahepatic cholestasis ICD Code: K76.89 - Other specified diseases of liver Status: Acute (4) Respiratory failure, acute ICD Code: J96.00 - Acute respiratory failure, unspecified whether with hypoxia or hypercapnia Status: Acute (5) ANAMIKA (acute kidney injury) ICD Code: N17.9 - Acute kidney failure, unspecified Status: Acute (6) Leukocytosis ICD Code: D72.829 - Elevated white blood cell count, unspecified Status: Acute (7) Metabolic acidemia ICD Code: E87.2 - Acidosis Status: Acute (8) Current chronic use of systemic steroids ICD Code: Z79.52 - FCI (current) use of systemic steroids Status: Chronic (9) Hypothyroidism ICD Code: E03.9 - Hypothyroidism, unspecified Status: Chronic (10) Polymyalgia rheumatica ICD Code: M35.3 - Polymyalgia rheumatica Status: Chronic Assessment and Plan NEURO/PSYCH: Pain due to acute pancreatitis Versed and fentanyl for pain control and ventilator synchrony Also on hydrocodone/acetaminophen 5-10/325 one tablet every 4 hours when necessary pain CT brain 12/19 revealed no acute intracranial findings RESP: Acute respiratory failure with hypoxia COPD exacerbation History of tobacco use Intubated and placed on mechanical ventilation 12/23 DuoNeb every 4 hours scheduled and when necessary Solu-Medrol 60 mg q12 IV-reduce to 40 q12, place on budesonide NEB See ID section for broad-spectrum antibiotics No vent weaning until GI workup and interventions completed, encephalopathy and hemodynamics improved CV: SIRS/Severe sepsis Lactic acidosis Prev Hemorrhagic shock-resolved Continue fluid resuscitation. Maintenance IV fluids at 100 ml per hour, change to normal saline to D5 half-normal saline Received 2 units of PRBC 12/23/17 As needed metoprolol. 2.5 mg every 6 hours as needed for heart rate greater than 120. 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 Lipase has normalized, bilirubin trending down slowly Dr. Fox discussed with Dr. Celeste. Bleeding scan negative, IR planning to re adjust the drain today Keep NPO, NGT to IWS. Consider post pyloric feeding tomorrow prev Liver laceration with hemoperitoneum s/p OR ex lap with Dr. Montero, 12/04/17 and control of bleeding from liver capsular laceration Biliary obstruction Elevated CA 19-9 84. Biopsy was negative, may need repeat biopsy once more stable Consider ERCP/endoscopic US when more stable and pancreatitis resolves Pantoprazole 40 mg IV daily for GI prophylaxis. Bowel regimen CT abdomen/pelvis 12/12 revealed pancreatitis. Resolution of hemoperitoneum. CT 12/22 worsening pancreatitis Hepatic angio demonstrated a 1cm pseudoaneurysm arising from a distal right hepatic branch s/p embolization FEN/RENAL: Acute kidney injury-improving BPH Continue finasteride 5 mg daily Carmona to be maintained Continue IV fluids Replace electrolytes per ICU protocol ID: Severe sepsis Jabari cholangitis Staph epi UTI Severe acute pancreatitis s/p biliary stent, jabari albicans in biliary culture 12/04 Urine cultures positive for pansensitive staph epi 12/01 Cont meropenem, cont fluconazole, continue IV Flagyl ID Dr. Gill HEME: Normocytic anemia Thrombocytopenia Leukocytosis Serial CBC. Replace as clinically indicated follow trends Received 2 units of PRBC yesterday for hemoglobin of 6.2 Bleeding probably into hemorrhagic pancreatitis ENDO: Hypothyroidism Chronic prednisone 5 mg daily for rheumatoid arthritis Continue Synthroid Continue Solu-Medrol 40 mg IV every 12 PROPH: SCDs for DVT prophylaxis. Pantoprazole 40 mg IV ACCESS: RIJ central line placed 12/23/17 Critical Care: The total critical care time was 35 minutes. Time to perform other separately billable procedures was not included in the critical care time. Patient remains critically ill with multiorgan failure, but stable to slowly improving. Continue ventilatory support. Consider postpyloric feeding from tomorrow if agreeable with GI Problem Qualifiers (1) Respiratory failure, acute: Qualified Codes: J96.02 - Acute respiratory failure with hypercapnia (2) Leukocytosis: Qualified Codes: D72.829 - Elevated white blood cell count, unspecified (3) Hypothyroidism: Qualified Codes: E03.9 - Hypothyroidism, unspecified Nettie Alatorre MD Dec 25, 2017 16:19
[2017-12-25] MEDS ORDERED: MIDAZOLAM HCL 2 MG/2 ML VIAL ONE (16:48)
[2017-12-25] MEDS: INSULIN ASPART SUPPLEMENTAL SCALE SQ SCH ×2 (17:00→22:15)
[2017-12-25 17:02] LABS: HEMATOCRIT 25.5 % (39.0-51.0); HEMOGLOBIN 8.6 GM/DL (13.0-17.0)
[2017-12-25] MEDS ORDERED: IOHEXOL 350 MG/ML 50 ML BTL (for RAD DIAG) OTHER ONE (17:07)
--- NOTE | 2017-12-25 17:29 | PD.RAD ---
Post Procedure Progress Note Pre Procedure Diagnosis: (1) Sepsis (2) Pancreatitis Post Procedure Diagnosis: (1) Sepsis (2) Pancreatitis Procedure Date: Dec 25, 2017 Supervising Radiologist: Andrés Celeste Proceduralist/Assist: Brigette Naylor, RT(R), Gurvinder Nino, RT(R), Chayito Henderson RT(R)() Anesthesia: Local, Analgesia, Conscious Sedation Plan of Activity Patient to Unit: Critical Care Patient Condition: Poor See PACS Report for procedural detail/treatment Drainage Procedure Procedure 1 Imaging Guidance: Fluoroscopy Procedure Type: Biliary Drainage Procedure: Exchange Fluid Description: Bilious (I/E changed for standard biliary drain) Andrés Celeste MD Dec 25, 2017 17:29
--- NOTE | 2017-12-25 17:35 | HHI.HCPN ---
Reason for visit a. To assist with evaluation and management of symptoms including: Pain, dyspnea b. To assist medical decision maker(s) with: better understanding of current medical conditions; weighing benefits/burdens of medical treatment options; making medical treatment decisions. Subjective/Interval History Remains intubated and sedated, still jaundiced. Attempted SBT again this morning, failed due to patient apnea. Remains on the ventilator. Per family discussion with attending, patient's 3 children plan to come this weekend. 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 Clinical data: * Vital signs: BP 141/65, heart rate 100, respiratory rate 14, oxygen saturation 97% on 40% FiO2 * Laboratory: WBC 25.9 (30.6), HGB 8.6, HCT 25.5, PLT 107, sodium 150, potassium 3.4, BUN 39, creatinine 1.25 (1.47) AST 65 (91), ALT 90 (103), INR 1.9 (1.6). * Microbiology: Blood cultures 12/22 negative 2 days, urinalysis 12/23 no growth 24 hours, 12/20 Hemoccult positive. * Radiology: CT of the abdomen 12/22 showed slightly worsening pancreatitis but no necrosis, follow-up CT of the abdomen and pelvis with contrast 12/23 showed worsening, presumed hemorrhagic, pancreatitis with increased fluid or hemorrhage anterior to pancreas and stomach. NM bleeding scan was negative for GI bleeding. Cholangiogram is in progress. . Family/friend interactions Spoke with regarding visit from children this . If conference is held, I will be available to participate by phone. Updated regarding test findings and that he is considered not to be a surgical candidate. 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 Cholangiogram is currently in process. Will continue to update family as clinical course evolves. . Advance Directives Living Will: Copy in medical record Health Care Surrogate: Copy in medical record Durable Power of Agency Appointments Supervisor: Copy in medical record Advance Directive Specifics Health Care Surrogate(s): : Sandra Rios , cell . Documented care wishes: Goals are currently aggressive. . Objective Vital Signs Date Time Temp Pulse Resp B/P (MAP) Pulse Ox O2 Delivery O2 Flow Rate FiO2 12/25/17 15:27 97 40 12/25/17 12:00 100.2 100 14 141/65 (90) 96 12/25/17 11:24 94 40 12/25/17 11:23 40 12/25/17 08:57 97 40 12/25/17 08:00 99.0 93 14 143/66 (91) 97 12/25/17 06:00 84 12/25/17 05:22 98 40 12/25/17 04:00 40 12/25/17 04:00 112 12/25/17 04:00 98.8 112 15 98/68 (78) 98 12/25/17 03:24 98 40 12/25/17 02:00 93 12/25/17 00:00 40 12/25/17 00:00 98.9 82 14 144/67 (92) 98 12/25/17 00:00 82 12/24/17 23:27 97 40 12/24/17 22:00 71 12/24/17 20:09 99 40 12/24/17 20:00 98.7 67 14 124/58 (80) 98 12/24/17 20:00 40 12/24/17 20:00 67 Intake & Output 12/25/17 12/25/17 07:00 19:00 Intake Total 2290 ml Output Total 600 ml Balance 1690 ml IV Total 2290 ml Output Urine Total 550 ml Drainage Total 50 ml # Bowel Movements 4 . Physical Exam CONSTITUTIONAL/GENERAL: This is a morbidly obese, ill appearing, elderly male, intubated, sedated TUBES/LINES/DRAINS: PIV, RFA, RAC, right jugular central line, Carmona, ETT SKIN: Jaundice noted. No rashes or lesions. Warm dry and intact. ENT: Hearing diminished. Nose without bleeding or purulent drainage. Throat without visible erythema, exudates, masses, or lesions. NECK: Trachea midline, intubated. CARDIOVASCULAR: Regular rate and rhythm without murmurs, gallops, or rubs. No JVD. Peripheral pulses symmetric. RESPIRATORY/CHEST: Breath sounds shallow, tachypneic with scattered wheezes and coarse rhonchi throughout. GASTROINTESTINAL: Abdomen obese, soft, tender to palpation in all quadrants, mildly distended. Bowel sounds hypoactive. GENITOURINARY: Without palpable bladder distension. Carmona catheter in place. MUSCULOSKELETAL: Extremities without clubbing, cyanosis, or edema. No mottling or clubbing. NEUROLOGICAL: Intubated, lightly sedated. PSYCHIATRIC: Sedated . Diagnostic Tests Laboratory Laboratory Tests Test 12/22/17 17:40 12/22/17 20:20 12/22/17 20:25 12/23/17 03:46 Blood Gas Puncture Site RT RADIAL Blood Gas Patient Temperature 98.6 Blood Gas HCO3 38 mmol/L (22-26) Blood Gas Base Excess 13.5 mmol/L (-2-2) Blood Gas Oxygen Saturation 93 % (90-100) Arterial Blood pH 7.51 (7.380-7.420) Arterial Blood Partial Pressure CO2 48 mmHg (38-42) Arterial Blood Partial Pressure O2 89 mmHg (61-120) Arterial Blood Oxygen Content 10.4 Vol % (12.0-20.0) Arterial Blood Carboxyhemoglobin 2.6 % (0-4) Arterial Blood Methemoglobin 1.5 % (0-2) Blood Gas Hemoglobin 7.8 G/DL (12.0-16.0) Oxygen Delivery Device NASAL CANNULA Blood Gas Liter Flow 3 L/M Hemoglobin 7.6 GM/DL (13.0-17.0) Hematocrit 23.7 % (39.0-51.0) Lipase 811 U/L (73-393) Tumor Marker Alpha Fetoprotein 1.5 NG/ML (0.5-8.0) Carcinoembryonic Antigen 1.0 NG/ML (0.2-5.0) CA 19-9 Antigen 83.9 U/ML (0.0-35.0) Lactic Acid Level 2.4 mmol/L (0.4-2.0) Ammonia LESS THAN 10 MCMOL/L Test 12/23/17 05:50 12/23/17 06:13 12/23/17 13:00 12/23/17 18:04 Nasal Screen MRSA (PCR) MRSA NOT DETECTED (NOT White Blood Count 55.0 TH/MM3 (4.0-11.0) Red Blood Count 2.41 MIL/MM3 (4.50-5.90) Hemoglobin 7.3 GM/DL (13.0-17.0) 6.2 GM/DL (13.0-17.0) Hematocrit 22.3 % (39.0-51.0) 19.6 % (39.0-51.0) Mean Corpuscular Volume 92.8 FL (80.0-100.0) Mean Corpuscular Hemoglobin 30.5 PG (27.0-34.0) Mean Corpuscular Hemoglobin Concent 32.9 % (32.0-36.0) Red Cell Distribution Width 19.5 % (11.6-17.2) Platelet Count 128 TH/MM3 (150-450) Mean Platelet Volume 11.3 FL (7.0-11.0) CBC Comment AUTO DIFF Differential Total Cells Counted 200 Neutrophils % (Manual) 94 % (16-70) Band Neutrophils % 1 % (0-6) Lymphocytes % 2 % (9-44) Monocytes % 3 % (0-8) Neutrophils # (Manual) 52.8 TH/MM3 (1.8-7.7) Myelocytes 1 % (0-0) Differential Comment FINAL DIFF MANUAL Platelet Estimate LOW (NORMAL) Platelet Morphology Comment NORMAL (NORMAL) Target Cells 1+ (NORMAL) Blood Smear Pathologist Review Blood Urea Nitrogen 43 MG/DL (7-18) Creatinine 1.81 MG/DL (0.60-1.30) Random Glucose 143 MG/DL (74-106) Total Protein 5.3 GM/DL (6.4-8.2) Albumin 2.5 GM/DL (3.4-5.0) Calcium Level 9.5 MG/DL (8.5-10.1) Phosphorus Level 2.5 MG/DL (2.5-4.9) Magnesium Level 2.2 MG/DL (1.5-2.5) Alkaline Phosphatase 149 U/L (45-117) Aspartate Amino Transf (AST/SGOT) 150 U/L (15-37) Alanine Aminotransferase (ALT/SGPT) 169 U/L (12-78) Total Bilirubin 10.9 MG/DL (0.2-1.0) Sodium Level 144 MEQ/L (136-145) Potassium Level 3.4 MEQ/L (3.5-5.1) Chloride Level 100 MEQ/L (98-107) Carbon Dioxide Level 36.3 MEQ/L (21.0-32.0) Anion Gap 8 MEQ/L (5-15) Estimat Glomerular Filtration Rate 36 ML/MIN (>89) Prothrombin Time 22.7 SEC (9.8-11.6) 16.3 SEC (9.8-11.6) Prothromb Time International Ratio 2.2 RATIO 1.6 RATIO Activated Partial Thromboplast Time 36.6 SEC (24.3-30.1) Fibrinogen 458 mg/dL (227-377) Lactic Acid Level 2.0 mmol/L (0.4-2.0) Amylase Level 85 U/L (25-115) Lipase 326 U/L (73-393) Test 12/23/17 23:58 12/24/17 04:32 12/24/17 15:30 12/25/17 02:40 White Blood Count 32.1 TH/MM3 (4.0-11.0) 30.6 TH/MM3 (4.0-11.0) Red Blood Count 2.71 MIL/MM3 (4.50-5.90) 2.67 MIL/MM3 (4.50-5.90) Hemoglobin 7.9 GM/DL (13.0-17.0) 8.0 GM/DL (13.0-17.0) 8.4 GM/DL (13.0-17.0) Hematocrit 23.8 % (39.0-51.0) 23.6 % (39.0-51.0) Mean Corpuscular Volume 87.6 FL (80.0-100.0) 88.3 FL (80.0-100.0) Mean Corpuscular Hemoglobin 29.3 PG (27.0-34.0) 29.9 PG (27.0-34.0) Mean Corpuscular Hemoglobin Concent 33.4 % (32.0-36.0) 33.8 % (32.0-36.0) Red Cell Distribution Width 16.5 % (11.6-17.2) 17.0 % (11.6-17.2) Platelet Count 80 TH/MM3 (150-450) 78 TH/MM3 (150-450) Mean Platelet Volume 10.2 FL (7.0-11.0) 10.2 FL (7.0-11.0) CBC Comment AUTO DIFF Differential Total Cells Counted 100 Neutrophils % (Manual) 88 % (16-70) Band Neutrophils % 2 % (0-6) Lymphocytes % 4 % (9-44) Monocytes % 6 % (0-8) Neutrophils # (Manual) 27.5 TH/MM3 (1.8-7.7) Differential Comment FINAL DIFF MANUAL Platelet Estimate LOW (NORMAL) Platelet Morphology Comment NORMAL (NORMAL) Basophilic Stippling MOD (NORMAL) Ovalocytes 1+ (NORMAL) Blood Urea Nitrogen 39 MG/DL (7-18) Creatinine 1.47 MG/DL (0.60-1.30) Random Glucose 160 MG/DL (74-106) Total Protein 5.2 GM/DL (6.4-8.2) Albumin 2.5 GM/DL (3.4-5.0) Calcium Level 9.0 MG/DL (8.5-10.1) Magnesium Level 2.1 MG/DL (1.5-2.5) Alkaline Phosphatase 112 U/L (45-117) Aspartate Amino Transf (AST/SGOT) 91 U/L (15-37) Alanine Aminotransferase (ALT/SGPT) 103 U/L (12-78) Total Bilirubin 9.7 MG/DL (0.2-1.0) Sodium Level 147 MEQ/L (136-145) Potassium Level 3.5 MEQ/L (3.5-5.1) Chloride Level 107 MEQ/L (98-107) Carbon Dioxide Level 33.7 MEQ/L (21.0-32.0) Anion Gap 6 MEQ/L (5-15) Estimat Glomerular Filtration Rate 46 ML/MIN (>89) Ammonia LESS THAN 10 MCMOL/L Test 12/25/17 02:45 12/25/17 12:55 12/25/17 15:45 White Blood Count 25.9 TH/MM3 (4.0-11.0) Red Blood Count 2.88 MIL/MM3 (4.50-5.90) Hemoglobin 8.7 GM/DL (13.0-17.0) 8.6 GM/DL (13.0-17.0) Hematocrit 25.6 % (39.0-51.0) 25.5 % (39.0-51.0) Mean Corpuscular Volume 89.0 FL (80.0-100.0) Mean Corpuscular Hemoglobin 30.3 PG (27.0-34.0) Mean Corpuscular Hemoglobin Concent 34.0 % (32.0-36.0) Red Cell Distribution Width 17.1 % (11.6-17.2) Platelet Count 107 TH/MM3 (150-450) Mean Platelet Volume 10.0 FL (7.0-11.0) Neutrophils (%) (Auto) 94.0 % (16.0-70.0) Lymphocytes (%) (Auto) 0.6 % (9.0-44.0) Monocytes (%) (Auto) 5.3 % (0.0-8.0) Eosinophils (%) (Auto) 0.0 % (0.0-4.0) Basophils (%) (Auto) 0.1 % (0.0-2.0) Neutrophils # (Auto) 24.4 TH/MM3 (1.8-7.7) Lymphocytes # (Auto) 0.2 TH/MM3 (1.0-4.8) Monocytes # (Auto) 1.4 TH/MM3 (0-0.9) Eosinophils # (Auto) 0.0 TH/MM3 (0-0.4) Basophils # (Auto) 0.0 TH/MM3 (0-0.2) CBC Comment DIFF FINAL Differential Comment Blood Urea Nitrogen 39 MG/DL (7-18) Creatinine 1.25 MG/DL (0.60-1.30) Random Glucose 146 MG/DL (74-106) Total Protein 5.5 GM/DL (6.4-8.2) Albumin 2.7 GM/DL (3.4-5.0) Calcium Level 9.4 MG/DL (8.5-10.1) Alkaline Phosphatase 136 U/L (45-117) Aspartate Amino Transf (AST/SGOT) 65 U/L (15-37) Alanine Aminotransferase (ALT/SGPT) 90 U/L (12-78) Total Bilirubin 9.3 MG/DL (0.2-1.0) Sodium Level 150 MEQ/L (136-145) Potassium Level 3.4 MEQ/L (3.5-5.1) Chloride Level 112 MEQ/L (98-107) Carbon Dioxide Level 32.5 MEQ/L (21.0-32.0) Anion Gap 6 MEQ/L (5-15) Estimat Glomerular Filtration Rate 56 ML/MIN (>89) Phosphorus Level 2.1 MG/DL (2.5-4.9) Magnesium Level 2.3 MG/DL (1.5-2.5) Lipase 79 U/L (73-393) Prothrombin Time 19.2 SEC (9.8-11.6) Prothromb Time International Ratio 1.9 RATIO Activated Partial Thromboplast Time 31.8 SEC (24.3-30.1) Fibrinogen 429 mg/dL (227-377) . Result Diagram: 12/25/17 1545 12/25/17 0245 Microbiology Microbiology Date/Time Source Procedure Growth Status 12/22/17 20:20 Blood Peripheral Aerobic Blood Culture - Preliminary NO GROWTH IN 3 DAYS Resulted 12/22/17 20:20 Blood Peripheral Anaerobic Blood Culture - Preliminary NO GROWTH IN 3 DAYS Resulted 12/22/17 20:20 Blood Peripheral Aerobic Blood Culture - Preliminary NO GROWTH IN 3 DAYS Resulted 12/22/17 20:20 Blood Peripheral Anaerobic Blood Culture - Preliminary NO GROWTH IN 3 DAYS Resulted 12/23/17 02:54 Urine Catheterized Urine Urine Culture - Final NO GROWTH IN 48 HOURS. Complete Imaging Last Impressions Chest X-Ray 12/24/17 0600 Signed Impressions: Service Date/Time: Sunday, December 24, 2017 03:03 - CONCLUSION: 1. ET tube tip is at the abelardo and needs to be withdrawn 2 cm. 2. Increasing bilateral parenchymal infiltrates with consolidation in the left lower lobe. Jung Cevallos MD GI Bleed Scan Nuclear Medicine 12/24/17 0000 Signed Impressions: Service Date/Time: Sunday, December 24, 2017 16:43 - CONCLUSION: 1. Negative for active GI bleeding. Ronnie Donis MD Upper Extremity Ultrasound 12/23/17 0000 Signed Impressions: Service Date/Time: Saturday, December 23, 2017 13:09 - CONCLUSION: 1. Positive for superficial thrombus in the left cephalic vein. No deep venous thrombosis. Ronnie Donis MD Abdomen/Pelvis CT 12/23/17 0000 Signed Impressions: Service Date/Time: Saturday, December 23, 2017 17:21 - CONCLUSION: 1. Slight worsening of presumed hemorrhagic pancreatitis with heterogeneous increased density in the pancreas. Measurements given above. Also increased fluid or hemorrhage anterior to the pancreas and stomach in the omental region. 2. Slight worsening of left pleural effusion. 3. Stable right pleural effusion, perisplenic fluid and stable fluid in left paracolic gutter and pelvis. 4. Mild anasarca. Ronnie Donis MD Celiac/Hepatic Arteriogram 12/20/17 0000 Signed Impressions: Service Date/Time: Wednesday, December 20, 2017 15:32 - CONCLUSION: 1. 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 Followup angiography demonstrated complete exclusion of the pseudoaneurysm and fistula with normal appearing flow within the hepatic branches. Lion Leahy MD Biopsy X-Ray 12/18/17 0000 Signed Impressions: Service Date/Time: December 14:47 - CONCLUSION: Uncomplicated fluoroscopic guided biliary forceps biopsy and internal/external drainage catheter exchange as described in detail above Landry Mitchell MD Cholangiogram 12/16/17 0000 Signed Impressions: Service Date/Time: Saturday, December 16, 2017 17:07 - CONCLUSION: There is no drainage catheter complication. The patient does not have significant accumulation of abdominal ascites along the liver surface to potentially exacerbate fluid leakage along the tube tract. The fluid drainage appears to be benign serosanguinous. Dressing changes p.r.n. recommended. Landry Mitchell MD Abdomen Ultrasound 12/14/17 0000 Signed Impressions: Service Date/Time: Thursday, December 14, 2017 09:01 - CONCLUSION: Limited study due to bandages on the abdomen and bowel gas. Focal fatty infiltration right lobe of liver again seen. Gallbladder appears collapsed. Minimal ascites. Jerry Laureano MD Abdomen X-Ray 12/13/17 0000 Signed Impressions: Service Date/Time: Wednesday, December 13, 2017 18:55 - CONCLUSION: Nothing acute demonstrated. Nonobstructive bowel gas pattern and no free air. Evidence of right upper quadrant surgery and a internal/external biliary drainage catheter again noted. Landry Ryan MD Head CT 12/09/17 0000 Signed Impressions: Service Date/Time: Saturday, December 09, 2017 20:02 - CONCLUSION: Negative noncontrast head CT. Landry Ryan MD Bile Duct Drainage 12/03/17 0000 Signed Impressions: Service Date/Time: Sunday, December 03, 2017 14:10 - CONCLUSION: Uncomplicated biliary stent placement as above. Bj Hurtado MD Cholangiopancreatography MRI 12/02/17 0000 Signed Impressions: Service Date/Time: Saturday, December 02, 2017 08:17 - CONCLUSION: 1. Significant dilatation of the intrahepatic ducts ending at the confluence and possibility of stricture at this site or a Klatskin's tumor which is not visualized should be entertained. 2. Wedge-shaped focal fat right hepatic lobe. Luz Jean MD . Procedures 12/03: Biliary drain placement 12/04: Right IJ central line 12/04: Left femoral central line 12/04: Endotracheal intubation 12/04: Exploratory laparotomy 12/20: Forceps biopsy . Assessment and Plan Disease Oriented Problem List: (1) Pancreatitis (2) Anemia (3) Leukocytosis (4) Liver hemorrhage (5) Sepsis (6) Hypothyroidism (7) Polymyalgia rheumatica Symptom Scale: (1) Poor appetite 0-10 Scale: Unable to quantify (2) Abdominal pain 0-10 Scale: Unable to quantify Pertinent Non-Medical Issues Psychosocial:He was born and brought up in [place] where he completed high school and 2 years of college. Currently lives with his of 21 years. He has 3 children by his prior marriage, one boy and 2 girls all live in [place]. 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 They moved to [place] in August as his physician thought that a climate change might help his severe polymyalgia rheumatica, however he has seen no improvement so is planning to move back to [place], or [place] where his stepchildren live. Spiritual: Spirituality is important to him. 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 Legal: No previous living will or advanced directives completed, however had been discussed with his . Ethical issues impacting care: He is a little confused intermittently, however his is available and willing to act as decision-maker. . Important Contacts : Sandra Rios , cell . . 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 The pathology is pending and at this time no cancer has been diagnosed. He does have pancreatitis and sepsis which placed him at an increased risk of complications. He also suffered a liver laceration secondary to adhesions and a biliary drain placement requiring multiple blood transfusions. He is still having abdominal pain, elevated liver enzymes, increasing bilirubin and is jaundiced. He is now becoming confused. He is at risk of continued decline and recurrent hospitalizations. . Code Status: Full Code Plan PLAN: Legal decision maker: He is currently intubated so unable to participate in his decision making, however his is available and willing to act as decision-maker. Goals: Aggressive. CODE STATUS: FULL CODE SYMPTOMS: * Abdominal pain: Abdominal pain increased today from left upper quadrant, as noted yesterday, to all quadrants and increased tenderness today. Biliary drain is patent. He is currently on a fentanyl drip, titrated to comfort and sedation with morphine 1 mg, IV every 4 hours as needed for breakthrough pain or [place] 5/325 mg 1-2 tab every 4 hours as needed for breakthrough pain. Cholangiogram pending. * Dyspnea: Now mechanically ventilated for worsening respiratory status. Failed SBT on sedation vacation again this morning due to apnea. Solu-Medrol 60 mg every 12 hours, DuoNeb every 4 hours and as needed, antibiotics per ID. Ventilator management per cleaning custodian service. Palliative care will continue to follow the patient during hospital course as condition evolves, to assist patient/decision-maker with understanding of their medical conditions, weighing benefits/burdens of treatment options, for clarification of goals of treatment. Additionally will assist with any symptoms of palliative concern. . Attestation To help prompt me to consider important information that might be impacting today's encounter and assessment, information from prior notes written by myself or my colleagues may have been "brought forward" into today's note. My signature on this note, however, is an attestation that I personally performed the exam, history, and/or decision-making noted today, and, unless otherwise indicated, the interactions with patient, family, and staff as well as the review of records all occurred today. I also attest that the listed assessment and stated plan reflect my best clinical judgment today based on the combination of historical information, prior notes, and today's exam/ interactions. When time spent is documented, it refers only to time spent today by the signer, or if indicated, combined time spent today by collaborating physician/nurse practitioner. . Nona Brown Dec 25, 2017 5:34 pm
[2017-12-25] MEDS: FLUCONAZOLE 400 MG PREMIX BAG 200 ML IV SCH (18:00)
--- NOTE | 2017-12-25 19:02 | HHI.PR ---
Subjective Remarks 82 YOWM with VDRF,Pancreatitis, anemea,Leucocytosis Sedated with fentanyl Tolerated CPAP No Fever Had billiary drain exchanged T max 100 Objective Vital Signs Vital Signs Date Time Temp Pulse Resp B/P (MAP) Pulse Ox O2 Delivery O2 Flow Rate FiO2 12/25/17 18:00 79 12/25/17 17:22 100 100 12/25/17 16:00 92 12/25/17 16:00 99.2 92 14 153/87 (109) 98 12/25/17 15:27 97 40 12/25/17 14:00 101 12/25/17 12:00 100.2 100 14 141/65 (90) 96 12/25/17 12:00 100 12/25/17 11:24 94 40 12/25/17 11:23 40 12/25/17 10:00 93 12/25/17 08:57 97 40 12/25/17 08:00 93 12/25/17 08:00 99.0 93 14 143/66 (91) 97 12/25/17 06:00 84 12/25/17 05:22 98 40 12/25/17 04:00 40 12/25/17 04:00 112 12/25/17 04:00 98.8 112 15 98/68 (78) 98 12/25/17 03:24 98 40 12/25/17 02:00 93 12/25/17 00:00 40 12/25/17 00:00 98.9 82 14 144/67 (92) 98 12/25/17 00:00 82 12/24/17 23:27 97 40 12/24/17 22:00 71 12/24/17 20:09 99 40 12/24/17 20:00 98.7 67 14 124/58 (80) 98 12/24/17 20:00 40 12/24/17 20:00 67 I/O 12/24/17 12/24/17 12/24/17 12/25/17 12/25/17 12/25/17 07:00 15:00 23:00 07:00 15:00 23:00 Intake Total 1912 ml 974 ml 2340 ml 50 ml 120 ml Output Total 900 ml 700 ml 600 ml 700 ml Balance 1012 ml 974 ml 1640 ml -550 ml -580 ml Intake Oral 0 ml 0 ml 0 ml 0 ml IV Total 1402 ml 974 ml 2240 ml 50 ml Packed Cells 400 ml Blood Product IV Normal Saline Flush 50 ml Other 60 ml 100 ml 120 ml Output Urine Total 675 ml 550 ml 550 ml 675 ml Drainage Total 225 ml 150 ml 50 ml 25 ml # Bowel Movements 0 1 4 Result Diagram: 12/25/17 1545 12/25/17 0245 Objective Remarks GENERAL:Elderly male on Vent SKIN: Warm and dry. HEAD: Normocephalic. EYES:Deep Jaundice. No injection or drainage. NECK: Supple, trachea midline. No JVD or lymphadenopathy. CARDIOVASCULAR: Regular rate and rhythm without murmurs, gallops, or rubs. RESPIRATORY: Breath sounds equal bilaterally. No accessory muscle use. GASTROINTESTINAL: Abdomen soft, non-tender, nondistended. MUSCULOSKELETAL: No cyanosis, or edema. BACK: Nontender without obvious deformity. No CVA tenderness. A/P Assessment and Plan VDRF Pancreatitis Anemea Leucocytosis Jaundice PLAN: Vent support Sedation with Fentanyl Cont Abx Monitor H/H CPAP trial i AM Darshan Leos MD Dec 25, 2017 19:02
[2017-12-25] MEDS: methylPREDNISolone SOD SUCC 40 MG/1 ML VIAL IV PUSH SCH (22:14)
[2017-12-26] VITALS (19 sets, daily range): BP systolic 117–154; BP diastolic 59–77; PULSE 68–104; RESP 8–22; TEMP 98.2–99.3; O2SAT 92–100
[2017-12-26] MEDS: RESP: ALBUTEROL 2.5 MG/IPRATROPIUM 0.5 MG NEB (SCH) NEB ×6 (02:29→23:55)
[2017-12-26] MEDS: CHLORHEXIDINE GLUCONATE 2 % 1 PACK (2 CLOTHS)(taper/protocol) TOPICAL SCH (04:00)
[2017-12-26] MEDS: DEXT 5%-NACL 0.45% 1000 ML INJ 1,000 ML IV SCH ×2 (04:30→13:16)
[2017-12-26] MEDS: fentaNYL DRIP 250 ML IV PRN ×2 (04:30→18:33)
[2017-12-26] MEDS: LEVOTHYROXINE SODIUM 100 MCG TAB OG-TUBE SCH (04:31)
[2017-12-26] MEDS: MEROPENEM INJ 1,000 MG in SODIUM CHLORIDE 0.9% INJ 100 ML IV SCH ×3 (04:32→20:09)
[2017-12-26 04:59] LABS: AUTOMATED NEUTROPHIL # 17.7 TH/MM3 (1.8-7.7); BASOPHIL % 0.2 % (0.0-2.0); HEMATOCRIT 26.4 % (39.0-51.0); LYMPH % 1.1 % (9.0-44.0); LYMPHOCYTE # 0.2 TH/MM3 (1.0-4.8); MEAN CELL VOLUME 90.6 FL (80.0-100.0); MEAN CORPUSCULAR HEMOGLOBIN 30.7 PG (27.0-34.0); MEAN CORPUSCULAR HGB CONC 33.9 % (32.0-36.0); MEAN PLATELET VOLUME 9.4 FL (7.0-11.0); MONO % 5.5 % (0.0-8.0); NEUT % 93.2 % (16.0-70.0); PLATELET COUNT 126 TH/MM3 (150-450); RED BLOOD COUNT 2.92 MIL/MM3 (4.50-5.90); RED CELL DISTRIBUTION WIDTH 17.8 % (11.6-17.2)
[2017-12-26 05:05] LABS: INTERNATIONAL NORMALIZED RATIO 2.1 RATIO
[2017-12-26 05:34] LABS: ALKALINE PHOSPHATASE 163 U/L (45-117); TOTAL BILIRUBIN ADULT 8.3 MG/DL (0.2-1.0); TOTAL PROTEIN 5.1 GM/DL (6.4-8.2)
[2017-12-26 05:51] LABS: ALBUMIN 2.4 GM/DL (3.4-5.0); ALT (GPT) 75 U/L (12-78); AST (GOT) 65 U/L (15-37); BICARBONATE 29.1 MEQ/L (21.0-32.0); BLOOD UREA NITROGEN 42 MG/DL (7-18); CALCIUM 9.4 MG/DL (8.5-10.1); CHLORIDE 114 MEQ/L (98-107); CREATININE 1.19 MG/DL (0.60-1.30); GLOMERULAR FILTRATION RATE 59 ML/MIN (>89); GLUCOSE,RANDOM 180 MG/DL (74-106); LIPASE 110 U/L (73-393); SODIUM (NA) 150 MEQ/L (136-145)
[2017-12-26] MEDS: RESP: BUDESONIDE 0.5 MG/2 ML NEB NEB SCH ×2 (07:49→19:39)
[2017-12-26] MEDS: INSULIN ASPART SUPPLEMENTAL SCALE SQ SCH ×4 (08:00→20:09)
[2017-12-26] MEDS: CHLORHEXIDINE 0.12% (ORAL KIT) 15 ML CUP MT SCH ×2 (08:00→20:08)
[2017-12-26] MEDS: FINASTERIDE 5 MG TAB PO SCH (09:01)
[2017-12-26] MEDS: URSODIOL 300 MG CAP PO SCH ×2 (09:01→20:09)
[2017-12-26] MEDS: methylPREDNISolone SOD SUCC 40 MG/1 ML VIAL IV PUSH SCH ×2 (09:01→20:09)
[2017-12-26] MEDS: LACTULOSE SYRUP 20 GM/30 ML CUP OG-TUBE SCH (09:01)
[2017-12-26] MEDS: PANTOPRAZOLE SODIUM 40 MG VIAL IV PUSH SCH (09:02)
[2017-12-26] MEDS: SODIUM CHLORIDE 0.9% FLUSH 10 ML FLUSH IV FLUSH SCH ×2 (09:02→20:09)
[2017-12-26] MEDS: ALBUMIN 25% INJ 50 ML IV SCH ×2 (11:06→23:21)
--- NOTE | 2017-12-26 11:10 | HHI.PR ---
Subjective Remarks 82 YOWM with VDRF,Pancreatitis, anemea,Leucocytosis Sedated with fentanyl No Fever Had billiary drain exchanged at bedside Objective Vital Signs Vital Signs Date Time Temp Pulse Resp B/P (MAP) Pulse Ox O2 Delivery O2 Flow Rate FiO2 12/26/17 10:00 87 12/26/17 08:00 98.2 82 18 124/63 (83) 97 12/26/17 08:00 40 12/26/17 08:00 82 12/26/17 07:53 96 40 12/26/17 06:00 104 12/26/17 04:01 98 40 12/26/17 04:00 99.0 75 16 148/77 (100) 98 12/26/17 04:00 75 12/26/17 04:00 40 12/26/17 02:00 78 12/26/17 00:01 100 40 12/26/17 00:00 84 12/26/17 00:00 40 12/26/17 00:00 99.0 84 18 141/74 (96) 97 12/25/17 22:00 80 12/25/17 20:00 40 12/25/17 20:00 78 12/25/17 20:00 98.9 78 15 142/72 (95) 99 12/25/17 19:23 100 40 12/25/17 18:00 79 12/25/17 17:22 100 100 12/25/17 16:00 92 12/25/17 16:00 40 12/25/17 16:00 99.2 92 14 153/87 (109) 98 12/25/17 15:27 97 40 12/25/17 14:00 101 12/25/17 12:00 40 12/25/17 12:00 100.2 100 14 141/65 (90) 96 12/25/17 12:00 100 12/25/17 11:24 94 40 12/25/17 11:23 40 I/O 12/25/17 12/25/17 12/25/17 12/26/17 12/26/17 12/26/17 07:00 15:00 23:00 07:00 15:00 23:00 Intake Total 50 ml 120 ml 3905 ml Output Total 600 ml 700 ml 625 ml Balance -550 ml -580 ml 3280 ml Intake Oral 0 ml IV Total 50 ml 3905 ml Other 120 ml Output Urine Total 550 ml 675 ml 525 ml Stool Total 0 ml Drainage Total 50 ml 25 ml 100 ml # Bowel Movements 4 Result Diagram: 12/26/1744512/26/17445 Objective Remarks GENERAL:Elderly male on Vent SKIN: Warm and dry. HEAD: Normocephalic. EYES:Deep Jaundice. No injection or drainage. NECK: Supple, trachea midline. No JVD or lymphadenopathy. CARDIOVASCULAR: Regular rate and rhythm without murmurs, gallops, or rubs. RESPIRATORY: Breath sounds equal bilaterally. No accessory muscle use. GASTROINTESTINAL: Abdomen soft, non-tender, nondistended. MUSCULOSKELETAL: No cyanosis, or edema. BACK: Nontender without obvious deformity. No CVA tenderness. A/P Assessment and Plan VDRF Pancreatitis Anemea Leucocytosis Jaundice PLAN: Vent support Sedation with Fentanyl Cont Abx Monitor H/H CPAP trial DW at Darshan Leos MD Dec 26, 2017 11:10
--- NOTE | 2017-12-26 13:15 | HHI.GIFU ---
Subjective Remarks Patient remains with ET tube Right side biliary tube draining dark bilious fluid in room Abdomen taut Generalized jaundice continues (Apoorva Quevedo) Objective Vitals I&O Vital Signs Date Time Temp Pulse Resp B/P (MAP) Pulse Ox O2 Delivery O2 Flow Rate FiO2 12/26/17 12:00 98.6 99 8 154/69 (97) 96 12/26/17 11:43 40 12/26/17 11:42 92 40 12/26/17 10:00 87 12/26/17 08:00 98.2 82 18 124/63 (83) 97 12/26/17 08:00 40 12/26/17 08:00 82 12/26/17 07:53 96 40 12/26/17 06:00 104 12/26/17 04:01 98 40 12/26/17 04:00 99.0 75 16 148/77 (100) 98 12/26/17 04:00 75 12/26/17 04:00 40 12/26/17 02:00 78 12/26/17 00:01 100 40 12/26/17 00:00 84 12/26/17 00:00 40 12/26/17 00:00 99.0 84 18 141/74 (96) 97 12/25/17 22:00 80 12/25/17 20:00 40 12/25/17 20:00 78 12/25/17 20:00 98.9 78 15 142/72 (95) 99 12/25/17 19:23 100 40 12/25/17 18:00 79 12/25/17 17:22 100 100 12/25/17 16:00 92 12/25/17 16:00 40 12/25/17 16:00 99.2 92 14 153/87 (109) 98 12/25/17 15:27 97 40 12/25/17 14:00 101 I/O 12/25/17 12/25/17 12/25/17 12/26/17 12/26/17 12/26/17 07:00 15:00 23:00 07:00 15:00 23:00 Intake Total 50 ml 120 ml 3905 ml Output Total 600 ml 700 ml 625 ml Balance -550 ml -580 ml 3280 ml Intake Oral 0 ml IV Total 50 ml 3905 ml Other 120 ml Output Urine Total 550 ml 675 ml 525 ml Stool Total 0 ml Drainage Total 50 ml 25 ml 100 ml # Bowel Movements 4 Laboratory Laboratory Tests Test 12/25/17 15:45 12/26/17 04:46 12/26/17 09:00 Hemoglobin 8.6 9.0 Hematocrit 25.5 26.4 White Blood Count 19.0 Red Blood Count 2.92 Mean Corpuscular Volume 90.6 Mean Corpuscular Hemoglobin 30.7 Mean Corpuscular Hemoglobin Concent 33.9 Red Cell Distribution Width 17.8 Platelet Count 126 Mean Platelet Volume 9.4 Neutrophils (%) (Auto) 93.2 Lymphocytes (%) (Auto) 1.1 Monocytes (%) (Auto) 5.5 Eosinophils (%) (Auto) 0.0 Basophils (%) (Auto) 0.2 Neutrophils # (Auto) 17.7 Lymphocytes # (Auto) 0.2 Monocytes # (Auto) 1.0 Eosinophils # (Auto) 0.0 Basophils # (Auto) 0.0 CBC Comment DIFF FINAL Differential Comment Prothrombin Time 21.0 Prothromb Time International Ratio 2.1 Activated Partial Thromboplast Time 31.6 Blood Urea Nitrogen 42 Creatinine 1.19 Random Glucose 180 Total Protein 5.1 Albumin 2.4 Calcium Level 9.4 Alkaline Phosphatase 163 Aspartate Amino Transf (AST/SGOT) 65 Alanine Aminotransferase (ALT/SGPT) 75 Total Bilirubin 8.3 Sodium Level 150 Potassium Level 4.1 Chloride Level 114 Carbon Dioxide Level 29.1 Anion Gap 7 Estimat Glomerular Filtration Rate 59 Ammonia 11 Lipase 110 Stool C. difficile Toxin (PCR) NEGATIVE Stl C. difficile Toxin Epiderm 027 PRESUMPTIVE NEGATIVE Date/Time Source Procedure Growth Status 12/22/17 20:20 Blood Peripheral Aerobic Blood Culture - Preliminary NO GROWTH IN 4 DAYS Resulted 12/22/17 20:20 Blood Peripheral Anaerobic Blood Culture - Preliminary NO GROWTH IN 4 DAYS Resulted 12/04/17 00:42 Fluid Bile Fluid Gram Stain - Final Complete 12/04/17 00:42 Body Fluid Culture - Final Marielle Albicans Complete 12/20/17 05:13 Stool Stool Stool Occult Blood (RADHA) - Final HEMOCCULT POSITIVE Complete 12/23/17 02:54 Urine Catheterized Urine Urine Culture - Final NO GROWTH IN 48 HOURS. Complete 12/14/17 00:30 Wound Abdomen Gram Stain - Final Complete 12/14/17 00:30 Wound Abdomen Wound Culture - Final NO GROWTH IN 72 HRS.--AEROBICALLY OR ... Complete Imaging Last Impressions Chest X-Ray 12/24/17 0600 Signed Impressions: Service Date/Time: Sunday, December 24, 2017 03:03 - CONCLUSION: 1. ET tube tip is at the abelardo and needs to be withdrawn 2 cm. 2. Increasing bilateral parenchymal infiltrates with consolidation in the left lower lobe. Jung Cevallos MD GI Bleed Scan Nuclear Medicine 12/24/17 0000 Signed Impressions: Service Date/Time: Sunday, December 24, 2017 16:43 - CONCLUSION: 1. Negative for active GI bleeding. Ronnie Donis MD Upper Extremity Ultrasound 12/23/17 0000 Signed Impressions: Service Date/Time: Saturday, December 23, 2017 13:09 - CONCLUSION: 1. Positive for superficial thrombus in the left cephalic vein. No deep venous thrombosis. Ronnie Donis MD Abdomen/Pelvis CT 12/23/17 0000 Signed Impressions: Service Date/Time: Saturday, December 23, 2017 17:21 - CONCLUSION: 1. Slight worsening of presumed hemorrhagic pancreatitis with heterogeneous increased density in the pancreas. Measurements given above. Also increased fluid or hemorrhage anterior to the pancreas and stomach in the omental region. 2. Slight worsening of left pleural effusion. 3. Stable right pleural effusion, perisplenic fluid and stable fluid in left paracolic gutter and pelvis. 4. Mild anasarca. Ronnie Donis MD Celiac/Hepatic Arteriogram 12/20/17 0000 Signed Impressions: Service Date/Time: Wednesday, December 20, 2017 15:32 - CONCLUSION: 1. 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 Followup angiography demonstrated complete exclusion of the pseudoaneurysm and fistula with normal appearing flow within the hepatic branches. Lion Leahy MD Biopsy X-Ray 12/18/17 0000 Signed Impressions: Service Date/Time: December 14:47 - CONCLUSION: Uncomplicated fluoroscopic guided biliary forceps biopsy and internal/external drainage catheter exchange as described in detail above Landry Mitchell MD Cholangiogram 12/16/17 0000 Signed Impressions: Service Date/Time: Saturday, December 16, 2017 17:07 - CONCLUSION: There is no drainage catheter complication. The patient does not have significant accumulation of abdominal ascites along the liver surface to potentially exacerbate fluid leakage along the tube tract. The fluid drainage appears to be benign serosanguinous. Dressing changes p.r.n. recommended. Landry Mitchell MD Abdomen Ultrasound 12/14/17 0000 Signed Impressions: Service Date/Time: Thursday, December 14, 2017 09:01 - CONCLUSION: Limited study due to bandages on the abdomen and bowel gas. Focal fatty infiltration right lobe of liver again seen. Gallbladder appears collapsed. Minimal ascites. Jerry Laureano MD Abdomen X-Ray 12/13/17 0000 Signed Impressions: Service Date/Time: Wednesday, December 13, 2017 18:55 - CONCLUSION: Nothing acute demonstrated. Nonobstructive bowel gas pattern and no free air. Evidence of right upper quadrant surgery and a internal/external biliary drainage catheter again noted. Landry Ryan MD Head CT 12/09/17 0000 Signed Impressions: Service Date/Time: Saturday, December 09, 2017 20:02 - CONCLUSION: Negative noncontrast head CT. Landry Ryan MD Bile Duct Drainage 12/03/17 0000 Signed Impressions: Service Date/Time: Sunday, December 03, 2017 14:10 - CONCLUSION: Uncomplicated biliary stent placement as above. Bj Hurtado MD Cholangiopancreatography MRI 12/02/17 0000 Signed Impressions: Service Date/Time: Saturday, December 02, 2017 08:17 - CONCLUSION: 1. Significant dilatation of the intrahepatic ducts ending at the confluence and possibility of stricture at this site or a Klatskin's tumor which is not visualized should be entertained. 2. Wedge-shaped focal fat right hepatic lobe. Luz Jean MD Physical Exam HEENT: Normocephalic; atraumatic, eyes icteric, intubated CHEST: Diminished sounds CARDIAC: RRR ABDOMEN: distended, taut, active bowel sounds, rectal Carmona draining small amount of brown loose stool EXTREMITIES: No clubbing, cyanosis, BLE edema SKIN: + jaundice. MOTHER TESTER: Ventilator with some sedation (Apoorva Quevedo) Assessment and Plan Plan - peritoneal bleeding - Dr Duvall d/w IR, poss intervention to pull back drain stat bleed scan 12/24 neg not candidate for surgery - Anemia - hh stable Continues with ventilator management, is in the room, full code full aggressive care, she states children are coming this weekend. Consider up-date with all family members - Klatskins tumor, jaundice, path bile duct benign liver. plan for liver bx when stable goals remain aggressive per palliative care - 12/24/17 negative bleeding scan 12/26/17 bowel sounds are active, abdomen is taut, biliary tube right upper quadrant draining Patient continues to be critically ill in the intensive care setting. No further procedures for now but will need liver biopsy Plan: - Monitor labs hemoglobin, currently stable at 9 - Transfuse as needed - will need liver bx, timing TBD - continue supportive care This patient was seen by myself and Dr. Saunders, note was written on his behalf (Apoorva Quevedo) Plan Patient was seen and examined, agree with above-noted, I had a long discussion with his about his possibility of having malignancy she was questioning the liver biopsy I explained to her why we needed and that if they don't want to pursue it that's reasonable if the patient's entering comfort care or if he is not going to do chemotherapy especially with his age and his general condition, she stated that she will think about it and will make a decision (Eren Saunders MD) Apoorva Quevedo Dec 26, 2017 13:15 Eren Saunders MD Dec 26, 2017 15:44
--- NOTE | 2017-12-26 14:06 | HHI.HCPN ---
Reason for visit a. To assist with evaluation and management of symptoms including: Pain, dyspnea b. To assist medical decision maker(s) with: better understanding of current medical conditions; weighing benefits/burdens of medical treatment options; making medical treatment decisions. Subjective/Interval History Remains intubated and sedated, still jaundiced. Bile drain with dark green output, replaced yesterday by interventional radiology at GI request. On SBT, having some apnea, so off sedation. Receiving only IVF, D5 half at 100 ML's per hour at this time Clinical data: * Vital signs: BP 154/69, heart rate 99, respiratory rate 18, oxygen saturation 96% on 40% FiO2 * Laboratory: WBC 19.0 (25.9), HGB 9.0, HCT 25.5, PLT 107, sodium 150, potassium 3.4, BUN 39, creatinine 1.25 (1.47) AST 65 (91), ALT 90 (103), INR 1.9 (1.6). * Microbiology: Blood cultures 12/22 negative 2 days, urinalysis 12/23 no growth 24 hours, 12/20 Hemoccult positive. * Radiology: CT of the abdomen 12/22 showed slightly worsening pancreatitis but no necrosis, follow-up CT of the abdomen and pelvis with contrast 12/23 showed worsening, presumed hemorrhagic, pancreatitis with increased fluid or hemorrhage anterior to pancreas and stomach. NM bleeding scan was negative for GI bleeding. . Advance Directives Living Will: Copy in medical record Health Care Surrogate: Copy in medical record Durable Power of Railroad Operator: Copy in medical record Advance Directive Specifics Health Care Surrogate(s): : Sandra Rios , cell . Documented care wishes: Goals are currently aggressive. . Objective Vital Signs Date Time Temp Pulse Resp B/P (MAP) Pulse Ox O2 Delivery O2 Flow Rate FiO2 12/26/17 12:00 99 12/26/17 12:00 98.6 99 8 154/69 (97) 96 12/26/17 12:00 40 12/26/17 11:43 40 12/26/17 11:42 92 40 12/26/17 10:00 87 12/26/17 08:00 98.2 82 18 124/63 (83) 97 12/26/17 08:00 40 12/26/17 08:00 82 12/26/17 07:53 96 40 12/26/17 06:00 104 12/26/17 04:01 98 40 12/26/17 04:00 99.0 75 16 148/77 (100) 98 12/26/17 04:00 75 12/26/17 04:00 40 12/26/17 02:00 78 12/26/17 00:01 100 40 12/26/17 00:00 84 12/26/17 00:00 40 12/26/17 00:00 99.0 84 18 141/74 (96) 97 12/25/17 22:00 80 12/25/17 20:00 40 12/25/17 20:00 78 12/25/17 20:00 98.9 78 15 142/72 (95) 99 12/25/17 19:23 100 40 12/25/17 18:00 79 12/25/17 17:22 100 100 12/25/17 16:00 92 12/25/17 16:00 40 12/25/17 16:00 99.2 92 14 153/87 (109) 98 12/25/17 15:27 97 40 12/25/17 14:00 101 Intake & Output 12/26/17 12/26/17 07:00 19:00 Intake Total 3905 ml 809 ml Output Total 625 ml Balance 3280 ml 809 ml IV Total 3905 ml 809 ml Output Urine Total 525 ml Stool Total 0 ml Drainage Total 100 ml Physical Exam CONSTITUTIONAL/GENERAL: This is a morbidly obese, ill appearing, elderly male, intubated, sedated TUBES/LINES/DRAINS: PIV, RFA, RAC, right jugular central line, Carmona, ETT SKIN: Jaundice noted. No rashes or lesions. Warm dry and intact. ENT: Hearing diminished. Nose without bleeding or purulent drainage. Throat without visible erythema, exudates, masses, or lesions. NECK: Trachea midline, intubated. CARDIOVASCULAR: Regular rate and rhythm without murmurs, gallops, or rubs. No JVD. Peripheral pulses symmetric. RESPIRATORY/CHEST: Breath sounds shallow, tachypneic with scattered wheezes and coarse rhonchi throughout. GASTROINTESTINAL: Abdomen obese, soft, tender to palpation in all quadrants, mildly distended. Bowel sounds hypoactive. GENITOURINARY: Without palpable bladder distension. Carmona catheter in place. MUSCULOSKELETAL: Extremities without clubbing, cyanosis, or edema. No mottling or clubbing. NEUROLOGICAL: Intubated, lightly sedated. PSYCHIATRIC: Sedated . Diagnostic Tests Laboratory Laboratory Tests Test 12/23/17 18:04 12/23/17 23:58 12/24/17 04:32 12/24/17 15:30 Prothrombin Time 16.3 SEC (9.8-11.6) Prothromb Time International Ratio 1.6 RATIO White Blood Count 32.1 TH/MM3 (4.0-11.0) 30.6 TH/MM3 (4.0-11.0) Red Blood Count 2.71 MIL/MM3 (4.50-5.90) 2.67 MIL/MM3 (4.50-5.90) Hemoglobin 7.9 GM/DL (13.0-17.0) 8.0 GM/DL (13.0-17.0) 8.4 GM/DL (13.0-17.0) Hematocrit 23.8 % (39.0-51.0) 23.6 % (39.0-51.0) Mean Corpuscular Volume 87.6 FL (80.0-100.0) 88.3 FL (80.0-100.0) Mean Corpuscular Hemoglobin 29.3 PG (27.0-34.0) 29.9 PG (27.0-34.0) Mean Corpuscular Hemoglobin Concent 33.4 % (32.0-36.0) 33.8 % (32.0-36.0) Red Cell Distribution Width 16.5 % (11.6-17.2) 17.0 % (11.6-17.2) Platelet Count 80 TH/MM3 (150-450) 78 TH/MM3 (150-450) Mean Platelet Volume 10.2 FL (7.0-11.0) 10.2 FL (7.0-11.0) CBC Comment AUTO DIFF Differential Total Cells Counted 100 Neutrophils % (Manual) 88 % (16-70) Band Neutrophils % 2 % (0-6) Lymphocytes % 4 % (9-44) Monocytes % 6 % (0-8) Neutrophils # (Manual) 27.5 TH/MM3 (1.8-7.7) Differential Comment FINAL DIFF MANUAL Platelet Estimate LOW (NORMAL) Platelet Morphology Comment NORMAL (NORMAL) Basophilic Stippling MOD (NORMAL) Ovalocytes 1+ (NORMAL) Blood Urea Nitrogen 39 MG/DL (7-18) Creatinine 1.47 MG/DL (0.60-1.30) Random Glucose 160 MG/DL (74-106) Total Protein 5.2 GM/DL (6.4-8.2) Albumin 2.5 GM/DL (3.4-5.0) Calcium Level 9.0 MG/DL (8.5-10.1) Magnesium Level 2.1 MG/DL (1.5-2.5) Alkaline Phosphatase 112 U/L (45-117) Aspartate Amino Transf (AST/SGOT) 91 U/L (15-37) Alanine Aminotransferase (ALT/SGPT) 103 U/L (12-78) Total Bilirubin 9.7 MG/DL (0.2-1.0) Sodium Level 147 MEQ/L (136-145) Potassium Level 3.5 MEQ/L (3.5-5.1) Chloride Level 107 MEQ/L (98-107) Carbon Dioxide Level 33.7 MEQ/L (21.0-32.0) Anion Gap 6 MEQ/L (5-15) Estimat Glomerular Filtration Rate 46 ML/MIN (>89) Test 12/25/17 02:40 12/25/17 02:45 12/25/17 12:55 12/25/17 15:45 Ammonia LESS THAN 10 MCMOL/L White Blood Count 25.9 TH/MM3 (4.0-11.0) Red Blood Count 2.88 MIL/MM3 (4.50-5.90) Hemoglobin 8.7 GM/DL (13.0-17.0) 8.6 GM/DL (13.0-17.0) Hematocrit 25.6 % (39.0-51.0) 25.5 % (39.0-51.0) Mean Corpuscular Volume 89.0 FL (80.0-100.0) Mean Corpuscular Hemoglobin 30.3 PG (27.0-34.0) Mean Corpuscular Hemoglobin Concent 34.0 % (32.0-36.0) Red Cell Distribution Width 17.1 % (11.6-17.2) Platelet Count 107 TH/MM3 (150-450) Mean Platelet Volume 10.0 FL (7.0-11.0) Neutrophils (%) (Auto) 94.0 % (16.0-70.0) Lymphocytes (%) (Auto) 0.6 % (9.0-44.0) Monocytes (%) (Auto) 5.3 % (0.0-8.0) Eosinophils (%) (Auto) 0.0 % (0.0-4.0) Basophils (%) (Auto) 0.1 % (0.0-2.0) Neutrophils # (Auto) 24.4 TH/MM3 (1.8-7.7) Lymphocytes # (Auto) 0.2 TH/MM3 (1.0-4.8) Monocytes # (Auto) 1.4 TH/MM3 (0-0.9) Eosinophils # (Auto) 0.0 TH/MM3 (0-0.4) Basophils # (Auto) 0.0 TH/MM3 (0-0.2) CBC Comment DIFF FINAL Differential Comment Blood Urea Nitrogen 39 MG/DL (7-18) Creatinine 1.25 MG/DL (0.60-1.30) Random Glucose 146 MG/DL (74-106) Total Protein 5.5 GM/DL (6.4-8.2) Albumin 2.7 GM/DL (3.4-5.0) Calcium Level 9.4 MG/DL (8.5-10.1) Alkaline Phosphatase 136 U/L (45-117) Aspartate Amino Transf (AST/SGOT) 65 U/L (15-37) Alanine Aminotransferase (ALT/SGPT) 90 U/L (12-78) Total Bilirubin 9.3 MG/DL (0.2-1.0) Sodium Level 150 MEQ/L (136-145) Potassium Level 3.4 MEQ/L (3.5-5.1) Chloride Level 112 MEQ/L (98-107) Carbon Dioxide Level 32.5 MEQ/L (21.0-32.0) Anion Gap 6 MEQ/L (5-15) Estimat Glomerular Filtration Rate 56 ML/MIN (>89) Phosphorus Level 2.1 MG/DL (2.5-4.9) Magnesium Level 2.3 MG/DL (1.5-2.5) Lipase 79 U/L (73-393) Prothrombin Time 19.2 SEC (9.8-11.6) Prothromb Time International Ratio 1.9 RATIO Activated Partial Thromboplast Time 31.8 SEC (24.3-30.1) Fibrinogen 429 mg/dL (227-377) Test 12/26/17 04:46 12/26/17 09:00 White Blood Count 19.0 TH/MM3 (4.0-11.0) Red Blood Count 2.92 MIL/MM3 (4.50-5.90) Hemoglobin 9.0 GM/DL (13.0-17.0) Hematocrit 26.4 % (39.0-51.0) Mean Corpuscular Volume 90.6 FL (80.0-100.0) Mean Corpuscular Hemoglobin 30.7 PG (27.0-34.0) Mean Corpuscular Hemoglobin Concent 33.9 % (32.0-36.0) Red Cell Distribution Width 17.8 % (11.6-17.2) Platelet Count 126 TH/MM3 (150-450) Mean Platelet Volume 9.4 FL (7.0-11.0) Neutrophils (%) (Auto) 93.2 % (16.0-70.0) Lymphocytes (%) (Auto) 1.1 % (9.0-44.0) Monocytes (%) (Auto) 5.5 % (0.0-8.0) Eosinophils (%) (Auto) 0.0 % (0.0-4.0) Basophils (%) (Auto) 0.2 % (0.0-2.0) Neutrophils # (Auto) 17.7 TH/MM3 (1.8-7.7) Lymphocytes # (Auto) 0.2 TH/MM3 (1.0-4.8) Monocytes # (Auto) 1.0 TH/MM3 (0-0.9) Eosinophils # (Auto) 0.0 TH/MM3 (0-0.4) Basophils # (Auto) 0.0 TH/MM3 (0-0.2) CBC Comment DIFF FINAL Differential Comment Prothrombin Time 21.0 SEC (9.8-11.6) Prothromb Time International Ratio 2.1 RATIO Activated Partial Thromboplast Time 31.6 SEC (24.3-30.1) Blood Urea Nitrogen 42 MG/DL (7-18) Creatinine 1.19 MG/DL (0.60-1.30) Random Glucose 180 MG/DL (74-106) Total Protein 5.1 GM/DL (6.4-8.2) Albumin 2.4 GM/DL (3.4-5.0) Calcium Level 9.4 MG/DL (8.5-10.1) Alkaline Phosphatase 163 U/L (45-117) Aspartate Amino Transf (AST/SGOT) 65 U/L (15-37) Alanine Aminotransferase (ALT/SGPT) 75 U/L (12-78) Total Bilirubin 8.3 MG/DL (0.2-1.0) Sodium Level 150 MEQ/L (136-145) Potassium Level 4.1 MEQ/L (3.5-5.1) Chloride Level 114 MEQ/L (98-107) Carbon Dioxide Level 29.1 MEQ/L (21.0-32.0) Anion Gap 7 MEQ/L (5-15) Estimat Glomerular Filtration Rate 59 ML/MIN (>89) Ammonia 11 MCMOL/L (11-32) Lipase 110 U/L (73-393) Stool C. difficile Toxin (PCR) NEGATIVE (NEGATIVE) Stl C. difficile Toxin Epiderm 027 PRESUMPTIVE NEGATIVE Result Diagram: 12/26/1744512/26/17 0446 Procedures 12/03: Biliary drain placement 12/04: Right IJ central line 12/04: Left femoral central line 12/04: Endotracheal intubation 12/04: Exploratory laparotomy 12/20: Forceps biopsy . Assessment and Plan Disease Oriented Problem List: (1) Pancreatitis (2) Anemia (3) Leukocytosis (4) Liver hemorrhage (5) Sepsis (6) Hypothyroidism (7) Polymyalgia rheumatica Symptom Scale: (1) Poor appetite 0-10 Scale: Unable to quantify (2) Abdominal pain 0-10 Scale: Unable to quantify Pertinent Non-Medical Issues Psychosocial:He was born and brought up in [place] where he completed high school and 2 years of college. Currently lives with his of 21 years. He has 3 children by his prior marriage, one boy and 2 girls all live in [place]. 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 They moved to [place] in August as his physician thought that a climate change might help his severe polymyalgia rheumatica, however he has seen no improvement so is planning to move back to [place], or [place] where his stepchildren live. Spiritual: Spirituality is important to him. He identifies as a Anabaptism and would appreciate television repairman visits. Legal: No previous living will or advanced directives completed, however had been discussed with his . Ethical issues impacting care: He is a little confused intermittently, however his is available and willing to act as decision-maker. . Important Contacts : Sandra Rios , juan carlos . . 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 The pathology is pending and at this time no cancer has been diagnosed. He does have pancreatitis and sepsis which placed him at an increased risk of complications. He also suffered a liver laceration secondary to adhesions and a biliary drain placement requiring multiple blood transfusions. He is still having abdominal pain, elevated liver enzymes, increasing bilirubin and is jaundiced. He is now becoming confused. He is at risk of continued decline and recurrent hospitalizations. . Code Status: Full Code Plan PLAN: Legal decision maker: He is currently intubated so unable to participate in his decision making, however his is available and willing to act as decision-maker. Goals: Aggressive. CODE STATUS: FULL CODE SYMPTOMS: * Abdominal pain: Abdominal pain increased today from left upper quadrant, as noted yesterday, to all quadrants and increased tenderness today. Biliary drain is patent. He is currently on a fentanyl drip, titrated to comfort and sedation with morphine 1 mg, IV every 4 hours as needed for breakthrough pain or [place] 5/325 mg 1-2 tab every 4 hours as needed for breakthrough pain. Cholangiogram pending. * Dyspnea: Now mechanically ventilated for worsening respiratory status. Failed SBT on sedation vacation again this morning due to apnea. Solu-Medrol 60 mg every 12 hours, DuoNeb every 4 hours and as needed, antibiotics per ID. Ventilator management per communications director service. Palliative care will continue to follow the patient during hospital course as condition evolves, to assist patient/decision-maker with understanding of their medical conditions, weighing benefits/burdens of treatment options, for clarification of goals of treatment. Additionally will assist with any symptoms of palliative concern. . Nona Brown Dec 26, 2017 2:06 pm
--- NOTE | 2017-12-26 14:23 | HHI.FPPN ---
Subjective Remarks Mr Rios had no acute events overnight. He is in critical but stable condition with multiple labs improving. We spoke with his who had questions about the multiple problems going on with her and answered each one. His three children will be in town this weekend to see the pt. She will page us if they have questions. Pt is still intubated and sedated on 200mcg fentanyl/hr, vent set on VRDF at 14bpm/8PEEP/40%FiO2. (Pascual Valero MD R1) Objective Vitals Vital Signs Date Time Temp Pulse Resp B/P (MAP) Pulse Ox O2 Delivery O2 Flow Rate FiO2 12/26/17 12:00 99 12/26/17 12:00 98.6 99 8 154/69 (97) 96 12/26/17 12:00 40 12/26/17 11:43 40 12/26/17 11:42 92 40 12/26/17 10:00 87 12/26/17 08:00 98.2 82 18 124/63 (83) 97 12/26/17 08:00 40 12/26/17 08:00 82 12/26/17 07:53 96 40 12/26/17 06:00 104 12/26/17 04:01 98 40 12/26/17 04:00 99.0 75 16 148/77 (100) 98 12/26/17 04:00 75 12/26/17 04:00 40 12/26/17 02:00 78 12/26/17 00:01 100 40 12/26/17 00:00 84 12/26/17 00:00 40 12/26/17 00:00 99.0 84 18 141/74 (96) 97 12/25/17 22:00 80 12/25/17 20:00 40 12/25/17 20:00 78 12/25/17 20:00 98.9 78 15 142/72 (95) 99 12/25/17 19:23 100 40 12/25/17 18:00 79 12/25/17 17:22 100 100 12/25/17 16:00 92 12/25/17 16:00 40 12/25/17 16:00 99.2 92 14 153/87 (109) 98 12/25/17 15:27 97 40 12/25/17 14:00 101 I/O 12/25/17 12/25/17 12/25/17 12/26/17 12/26/17 12/26/17 07:00 15:00 23:00 07:00 15:00 23:00 Intake Total 50 ml 120 ml 3905 ml 809 ml Output Total 600 ml 700 ml 625 ml Balance -550 ml -580 ml 3280 ml 809 ml Intake Oral 0 ml IV Total 50 ml 3905 ml 809 ml Other 120 ml Output Urine Total 550 ml 675 ml 525 ml Stool Total 0 ml Drainage Total 50 ml 25 ml 100 ml # Bowel Movements 4 (Pascual Valero MD R1) Result Diagram: 12/26/1744512/26/17445 Objective Remarks GENERAL: Ill-appearing, jaundiced, lying in bed, intubated and sedated on fentanyl, OG tube in place, on vent SKIN: No lesions. Jaundiced. Ecchymosis at LLQ below umbilicus ([place] Sign) HEAD: Normocephalic. Atraumatic EYES: Mild scleral icterus. No injection or drainage CARDIOVASCULAR: Regular rate and rhythm without murmur, gallop, or rub. RESPIRATORY: Good breath sounds, on ventilator with vent set at 14bpm/8 PEEP/40 % FiO2 GASTROINTESTINAL: Abdomen obese, tympanitic, distended, tender to palpation. BS hypoactive. No guarding. Transverse laparotomy scar over RUQ closed with steri- strips, c/d/i with no induration or fluctuance. Biliary drain in place on right lateral abdomen with small amount of green bilious drainage inside the drain bag. Rectal tube with brown stool draining EXTREMITIES: No cyanosis. SCDs in place. NEUROLOGICAL: Intubated and sedated; can follow a few simple commands. Noticed a few myoclonic jerks on exam today. Procedures 12/02/17 - MRCP 12/03/17 - Biliary drainage with percutaneous cholangiogram 12/04/17 - Exploratory laparotomy, liver laceration repair 12/14/17 - Cholangiogram 12/16/17 - Cholangiogram 12/18/17 - Cholangiogram with catheter change and biopsy of intrahepatic biliary duct at stricture and biopsy of mass 12/20/17 - Embolization of Right Hepatic Lobe under IR guidance Medications and IVs Current Medications Medications (Trade) Dose Ordered Sig/Rafa Route Start Time Stop Time Status Last Admin (NS Flush) 2 ml BID IV FLUSH 12/01/17 21:00 12/26/17 09:02 (Zofran Inj) 4 mg Q6H PRN IVP 12/01/17 11:00 12/16/17 06:18 (Narcan Inj) 0.4 mg UNSCH PRN IV PUSH 12/01/17 11:00 (Dulcolax Supp) 10 mg DAILY PRN RECTAL 12/01/17 11:00 Future Hold (Proscar) 5 mg DAILY PO 12/02/17 09:00 Future hold 12/26/17 09:01 (Deltasone) 5 mg DAILY PO 12/02/17 09:00 Future Hold 12/15/17 11:52 (Peridex 0.12% Liq) 15 ml BID@08,20 MT 12/04/17 08:00 12/26/17 08:00 Fluconazole/ Sodium Chloride 200 ml @ 100 mls/hr Q24H IV 12/06/17 17:00 12/25/17 18:00 (Albuterol Neb) 2.5 mg Q2HR NEB PRN NEB 12/05/17 22:00 12/23/17 10:07 (Protonix Inj) 40 mg DAILY IV PUSH 12/10/17 09:00 12/26/17 09:02 (Pulmicort Respule Neb) 0.5 mg Q12HR NEB NEB 12/12/17 09:45 12/26/17 07:49 (KCl) 20 meq DAILY PO 12/14/17 09:00 Future Hold 12/24/17 08:44 (Actigall) 300 mg Q12HR PO 12/13/17 21:00 12/26/17 09:01 Albumin Human 50 ml @ 60 mls/hr Q12H IV 12/14/17 12:00 12/26/17 11:06 (Lasix Inj) 20 mg DAILY@1215 IV PUSH 12/14/17 12:15 Future Hold 12/22/17 12:13 (Morphine Inj) 1 mg Q4H PRN IV PUSH 12/15/17 16:15 (Roxicodone) 5 mg Q8H PO 12/18/17 17:00 Future Hold 12/24/17 08:43 (Pill Splitter) 1 ea UNSCH PRN OTHER 12/20/17 10:30 (Deltasone) 40 mg BID PO 12/20/17 21:00 Future Hold 12/22/17 09:00 (NS Flush) 2 ml UNSCH PRN IV FLUSH 12/21/17 07:45 12/24/17 08:42 (Lopressor) 37.5 mg Q8HR PO 12/21/17 14:00 Future Hold 12/22/17 13:23 Miscellaneous Information Patient in critical care unit? Ass... [id number] .XX 12/22/17 19:30 12/22/17 19:30 (Chlorhexidine 2% Cloth) 3 pack DAILY@04 TOPICAL 12/23/17 04:00 12/27/17 04:01 12/26/17 04:00 (Chlorhexidine 2% Cloth) 3 pack UNSCH PRN TOPICAL 12/22/17 19:30 12/27/17 19:19 Fentanyl Citrate 250 ml @ 5 mls/hr TITRATE PRN IV 12/23/17 12:30 12/26/17 04:30 Midazolam HCl 100 ml @ 2 mls/hr TITRATE PRN IV 12/23/17 12:30 (Duoneb Neb) 1 ampule Q4HR NEB NEB 12/23/17 16:00 12/26/17 11:40 Norepinephrine Bitartrate 250 ml @ 7.5 mls/hr TITRATE PRN IV 12/23/17 14:15 ([place] 10-325 Mg) 1 tab Q4H PRN OG-TUBE 12/24/17 11:00 ([place] 5-325 Mg) 1 tab Q4H PRN OG-TUBE 12/24/17 11:00 (Tylenol) 500 mg Q6H PRN OG-TUBE 12/24/17 11:00 ([place]-Colace) 1 tab BID OG-TUBE 12/24/17 21:00 Future Hold 12/24/17 21:26 (Lactulose Liq) 30 ml DAILY PRN OG-TUBE 12/24/17 11:00 Future Hold (Lactulose Liq) 30 ml DAILY OG-TUBE 12/25/17 09:00 12/26/17 09:01 (Milk Of Magnesia Liq) 30 ml Q12H PRN OG-TUBE 12/24/17 11:00 Future Hold (Synthroid) 100 mcg DAILY@0600 OG-TUBE 12/25/17 06:00 12/26/17 04:31 (Senokot) 17.2 mg Q12H PRN OG-TUBE 12/24/17 11:00 Future Hold Potassium Chloride 100 ml @ 50 mls/hr Q2H PRN IV 12/25/17 08:30 Potassium Chloride 100 ml @ 50 mls/hr Q2H PRN IV 12/25/17 08:30 (K-Lyte Cl Eff) 50 meq UNSCH PRN PO 12/25/17 08:30 12/25/17 16:03 Potassium Chloride 100 ml @ 25 mls/hr UNSCH PRN IV 12/25/17 08:30 Potassium Chloride 100 ml @ 50 mls/hr Q2H PRN IV 12/25/17 08:30 Magnesium Sulfate 4 gm/Sodium Chloride 100 ml @ 50 mls/hr UNSCH PRN IV 12/25/17 08:30 (Mag-Ox) 800 mg UNSCH PRN PO 12/25/17 08:30 Magnesium Sulfate 2 gm/Sodium Chloride 100 ml @ 50 mls/hr UNSCH PRN IV 12/25/17 08:30 (K-Phos) 2,000 mg Q4H PRN PO 12/25/17 08:30 Sodium Phosphate 30 mmol/Sodium Chloride 250 ml @ 42 mls/hr UNSCH PRN IV 12/25/17 08:30 (K-Phos) 2,000 mg UNSCH PRN PO/TUBE 12/25/17 08:30 Potassium Phosphate 30 mmol/ Sodium Chloride 260 ml @ 42 mls/hr UNSCH PRN IV 12/25/17 08:30 Dextrose/Sodium Chloride 1,000 ml @ 100 mls/hr Q10H IV 12/25/17 08:30 12/26/17 13:16 Meropenem 1000 mg/ Sodium Chloride 100 ml @ 200 mls/hr Q8HR IV 12/25/17 14:00 12/26/17 13:49 (D50w (Vial) Inj) 50 ml UNSCH PRN IV PUSH 12/25/17 14:30 (Glucagon Inj) 1 mg UNSCH PRN OTHER 12/25/17 14:30 (NovoLOG SUPPLEMENTAL SCALE) 1 ACHS SLIDING SCALE SQ 12/25/17 17:00 12/26/17 11:06 (SoluMEDROL INJ) 40 mg Q12HR IV PUSH 1/25/18 21:00 12/26/17 09:01 (Pascual Valero MD R1) Urinary Catheter: Yes Carmona insert reason: Prolonged Immobilization (Pascual Valero MD R1) Vascular Central Line Catheter: Yes Assessment to: Continue Date of Insertion: Dec 26, 2017 Line: Central Venous Catheter Side: Right Location: Internal, Jugular (Pascual Valero MD R1) A/P Assessment and Plan 82 yo male with h/o PMR, BPH, hyperlipidemia presented with RUQ pain and UTI and 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 Following IR biliary stent and drainage on 12/03, pt found to have liver laceration and hemorrhage causing hemoperitoneum. Exploratory laparotomy performed emergently on 12/04 requiring 6u PRBCs, 1u FFP and 1u Cryo with EBL 2L. Following surgery, pt was sent to ICU for management and showed improvement but still with persistently elevated WBC. He was found to have pancreatitis on CT scan but lipase and amylase were not elevated. His biliary drain was investigated on 12/16/16 due to leaking and was found to be working properly. 12/19: Given 1uPRBCs from blood loss anemia 12/17 w/Hgb 6.8 and H/H improved to 8.1/24.5. Today H/H 7.3/22.7; will do f/u H/H 1PM and will transfuse 1uPRBCs if <7.0. BP elevated to 161/93, confused overnight and incontinent of urine. Getting scheduled oxycodone q8h for pain control now and pt w/o complaint for pain. IR took biopsies of stricture and mass surrounding stricture yesterday and we are awaiting results to consider further workup. Pt appears to be improved wrt RR but still using accessory muscles of neck; is not clammy today; and is resting more comfortably. CXR shows some improvement in PNA. Continues to be afebrile and WBC reduced to 20.6 today. Vanc trough 13.7; continue Zosyn, Vanc, levaquin and diflucan; ID and GI consulted. 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 Discussed with general surgeon Winston who suspects that the fluid pooling is a small bleed from the catheter exchange. He will discuss with IR on Friday to go over all scans/ tests and come up with a plan. Also spoke with IR Dr. Leahy, who states that he would evaluate the scans and will make a decision on the next steps. 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 Pt received 1uPRBCs early this morning with follow-up H/H indicating pt is hemodynamically stable at 8.7/26.1. Morning labs indicate rising H/H at 9.0/ 27.1. Hypernatremia resolved at 142 this morning. LFTs and Tbili still trending upward, likely 2/2 blood loss--will look to trend down hopefully from here. Pt slight jaundiced as a result w/mild scleral icterus. CXR this morning showing moderate CHF progression--adding one time Lasix 20mg IV to scheduled dosage due to having received blood products, reduce cardiac afterload, and reduce WOB. We had nursing flush his biliary drain which appeared to be clogged with dark fluid ; once flushed, began draining light green bilious fluid. 12/22: Pt with increase work of breathing and wheezing, improved on reexamination after steroids and Lasix. His reports that he has been asking to go home. His nurse reports that he has been refusing some medications. Pulmonology consulted for further recommendations. 12/23: Patient lying in bed, very tender to palpation of his abdomen. Respirations appear nonlabored 12/24: Pt intubated and sedated on 200mcg/hr fentanyl and versed on vent with settings 14bpm/8 PEEP/50%FiO2. CT abdomen/pelvis shows hemorrhagic pancreatitis w/increased pancreatic density and increased fluid collection anterior to the pancreas. Also a left pleural effusion, anasarca, and splenic fluid collection. Lasix is being held. His is requesting aggressive measures. His children will arrive this weekend. Palliative Care has visited with the and is following. Pt with poor prognosis and is not a surgical candidate at this time. 12/25: Pt intubated and sedated on 150mcg/hr fentanyl on vent with settings 14bpm /8 PEEP/40%FiO2. Showing clinical improvement with WBC down to 25.9, creatinine 1.25, and total bilirubin stable at 9.3. Hemoglobin stable at 8.7. AST and ALT downtrending. Lasix is being held due to hemorrhagic pancreatitis. Switch fluids to D5 half-normal saline at 100 mL per hour. 12/26: Critical but stable condition with improving labs: WBC 19.0, PLTs 127, Cr 1.19, Tbili 8.3, ammonia 11. Slight bump up in Lipase to 110. On vent, intubated and sedated on fentanyl at 200mcg/hr. Dr Alatorre plans for CPAP trial today. Pt has no diarrhea today and C.diff testing negative. Myoclonic jerks noticed today--ordering eeg. IVF have markedly improved pancreatitis while creating permissible fluid overload. Holding Lasix and KCl due to pancreatitis for now. IR replaced the biliary drain yesterday. Pt indicates pt's children will visit this weekend and may page us to answer their questions. Seen and dw Taco Landry and Anna Marie Boucher 1. Respiratory: Respiratory failure w/hypoxia; COPD; tobacco abuse -Intubated and sedated with fentanyl 200mcg/hr -Mechanical Ventilator, VRDF, 14bpm/8PEEP/40%FiO2 -Duonebs q4h scheduled -Solumedrol 60mg IV q12h -CPAP trials per ICU protocol to attempt vent weaning -Surgical Training Specialist (Dr Alatorre) primary in managing pt in ICU 2. ID: Severe sepsis, lactic acidosis, resolved hemorrhagic shock, jabari cholangitis, staph epidermis UTI -s/p biliary stent, jabari albicans in biliary culture 12/04 -Urine cultures positive for pansensitive staph epi 12/01 -D5 1/2NS IVF @100ml/hr -s/p 2uPRBCs in ICU on 12/21 and 12/23; hemodynamically stable w/H&H: 9.0/26.4 -WBC trending down: 19.0 today -Continue Merropenem 1g q8h -Continue Diflucan 400mg q24h -ID consulted (Dr Gill)--appreciate recs -C. diff negative -Hepatitis screen negative Antibiotic history: -Zosyn 3.375 g IV every 6 hours (12/01/17 -12/22/17) -Vancomycin IV (stopped 12/18/17) -Levaquin 750mg IV Daily (12/15-12/22/17) 3. CV: mild CHF -CXR w/cardiomegaly and mild CHF -Holding Lasix due to pancreatitis -Holding KCl for hypokalemia ppx on lasix -Fluids for volume repletion as above -Holding Metoprolol 25mg q8h -Metoprolol 2.5mg q6h PRN for HR >120 4. 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 Renal: ANAMIKA with Cr 1.81 on 12/23; also, BPH -Cr 1.19 today and trending to normal -IVF as above -Continue home Finasteride 5mg daily 6. 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 Pt is a poor surgical candidate. -Persistent leukocytosis to 60, now 19--2/2 infectious process as above. -Acute blood loss due to liver laceration as above on 12/03-12/04 and internal bleed 12/21/-12/23 has required 10u PRBCs, 5u FFP, 1u leuko reduced PLTs, 1u Cryoprecipitate. -Hgb 9.0 and improving since pseudoaneurysm embolization 12/20 -Bleeding scan 12/24 w/o s/s of bleeding -NPO for now; considering tube feeds 7. Endocrine: Hypothyroid; chronic prednisone use for polymyalgia rheumatica; hyperglycemia 2/2 steroid use -Hold prednisone 5mg daily -Continue solumedrol 40mg q12h -Continue home levothyroxine 100mcg daily 8. FEN/GI/PPx: Fluids: Managed by critical care, D5 1/2 normal saline at 100 mL per hour Electrolytes: Monitor and replace as needed, on ICU electrolyte placement protocol Nutrition: Nothing by mouth, consider OG feeds DVT prophylaxis: SCDs, holding pharmacologic prophylaxis due to recent pancreatitis bleed Constipation prophylaxis: Holding all anti-diarrheal medications. If more diarrhea, will check for C Diff due to long hx of abx Discharge Planning Anticipate discharge once patient is clinically stable, time frame unclear. (Pascual Valero MD R1) Attending Attestation Patient seen and examined. Case reviewed and discussed. Agree with plan of care as discussed with me and documented in the resident note. (Elena Landry MD) Problem List: (1) Pancreatitis ICD Codes: K85.90 - Acute pancreatitis without necrosis or infection, unspecified (2) Leukocytosis ICD Codes: D72.829 - Elevated white blood cell count, unspecified Status: Acute Plan: Originally considered a Leukemoid rxn with WBCs in 35-50 range; however, Heme/onc believed to be infection -WBC down to 25.9 -ID on board -Continue meropenem 1000 mg every 12 hours (12/23/17 - ) -Continue fluconazole 400 mg IV every 24 hours (12/06/17 - ) (3) Intrahepatic bile duct dilation ICD Codes: K83.8 - Other specified diseases of biliary tract (4) Anemia ICD Codes: D64.9 - Anemia, unspecified (5) Pneumonia ICD Codes: J18.9 - Pneumonia, unspecified organism Plan: (6) Abdominal pain ICD Codes: R10.9 - Unspecified abdominal pain Status: Acute Plan: (7) Liver hemorrhage ICD Codes: K76.89 - Other specified diseases of liver Status: Acute Plan: (8) Hypothyroidism ICD Codes: E03.9 - Hypothyroidism, unspecified Status: Chronic Plan: (9) Polymyalgia rheumatica ICD Codes: M35.3 - Polymyalgia rheumatica Status: Chronic (10) BPH (benign prostatic hyperplasia) ICD Codes: N40.0 - Benign prostatic hyperplasia without lower urinary tract symptoms Status: Chronic (11) FEN/PPX Plan: (Pascual Valero MD R1) Problem Qualifiers (1) Leukocytosis: Qualified Codes: D72.829 - Elevated white blood cell count, unspecified (2) Abdominal pain: Qualified Codes: R10.11 - Right upper quadrant pain (3) Hypothyroidism: Qualified Codes: E03.9 - Hypothyroidism, unspecified Pascual Valero MD R1 Dec 26, 2017 14:23 Elena Landry MD Dec 29, 2017 09:14
--- NOTE | 2017-12-26 16:33 | RADRPT ---
EXAM DATE/TIME: 12/25/2017 17:44 [facility] COMPARISON: CHOLANGIOGRAM THRU EXISTING CATHETER, December 18, 2017, 0:00. INDICATIONS : Patient with a history of biliary obstruction. MEDICAL HISTORY : HLD BPH Polymyalgia rheumatica Benign polyps GERD Gallstones Kidney stones Asthma SURGICAL HISTORY : Cervical and lumbar fusion Biliary drain ENCOUNTER: Subsequent ACUITY: 1 month PAIN SCORE: FLUORO TIME: 4.7 minutes IMAGE SERIES: 4 SEDATION TIME: 30 minutes CONTRAST: 40 cc Omnipaque (iohexol) 350 MEDICATION(S): 1.) 2 mg midazolam (Versed) IV DEVICE(S): 1.) 10F locking catheter PROCEDURE : 1. conversion of biliary internal/external drain to a standard biliary drain The risks, benefits and alternatives to the procedure were explained and verbal and written consent w as obtained. The site was prepped in sterile fashion. Full sterile technique was used, including ca p, mask, sterile gloves and gown and a large sterile sheet. Hand hygiene and 2% chlorhexidine and/or betadine/alcohol prep was utilized per protocol for cutaneous antisepsis. The skin and subcutaneous tissues were infiltrated with local anesthetic solution. Existing catheter was injected with positive contrast demonstrating excellent position across the CBD and into the small bowel. The catheter was removed over a wire and replaced with a 10 [place] lo op locking catheter which was positioned above the sphincter of [place] in an attempt to avoid the pancr eatic duct. Catheter aspirated and flushed without difficulty. Contrast flowed freely into the region al small bowel. CONCLUSION: Successful exchange of the 10 [place] internal/external drain for a standard 10 [place] loop drainage catheter is now positioned above the sphincter of [place]bal[place]. Andrés Celeste MD on December 26, 2017 at 16:27 Board Certified Radiologist. This report was verified electronically.
--- NOTE | 2017-12-26 16:36 | HHI.CCPN ---
Subjective Remarks/Hospital Course 82-year-old male with past history of BPH, hyperlipidemia, PMR who is admitted to [facility] 12/01/17 with right upper quadrant abdominal pain and jaundice. LFTs were elevated in an obstructive pattern. CT demonstrated intrahepatic biliary duct dilatation. A mass was not clearly seen. 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 He underwent percutaneous biliary stent placement and drain by interventional radiology 12/03/17 (Dr. Hurtado). He was hypotensive post procedure and this was initially managed by marriage and family counselor with 1.5 L fluid resuscitation and stress dose steroids, abx for possible biliary sepsis. Hypotension persisted and he was transferred to ICU with critical care medicine consult. When I went to evaluate the patient he appeared pale with cool skin concerning for hemorrhagic shock. CBC demonstrated leukocytosis 27.5 and hemoglobin was 9.4 from a baseline of 13. Place central line and art line, started neosynephrine, began transfusing blood products until appropriately stabilized for transition to CT scanner. CT scan demonstrated moderate hemoperitoneum with hemorrhage adjacent to the liver. The biliary drain was in good position. Called Dr. Montero who will take patient to OR for emergent laparotomy. agreeable to risks of surgery. Upon transition to OR he had received PRBC 7 units, 2 units FFP and 1 gram calcium chloride with 1 more unit of FFP, 1 unit platelets, 1 unit cryo ready to transfuse. 12/04/17: Status post exploratory laparotomy and control of liver laceration bleeding by Dr. montero, findinL hemoperitoneum, Capsular tear Segment of the liver. Remains on Chas-Synephrine at 50 mcg/m. Repeat lab work showed platelet count of 50 hemoglobin of 11.9. Platelet transfusion ordered. at the bedside 12/05/17: Tolerating CPAP, follows commands but tachycardic. White count increased to 52,000 biliary fluid with Jabari. I have increase Diflucan to 400 mg daily and consulted ID. Urine output minimal, no response to fluid bolus. Weight up by 10 kg, will attempt diuresis 12/06/17: Extubated yesterday. Breathing comfortably. Tachycardic up to 160s, white count remains high at 50,000, tachycardia most likely from SIRS response/ sepsis. Responded to beta thania. Urine output adequate with Lasix. 16 KG fluid up. Start scheduled Lasix 40 mg IV every 8 hours with IV albumin. Keep nothing by mouth until cleared by general surgery 12/07: Afebrile. Heart rate in the 120s. Off all vasopressors. Tolerating full liquid diet. Positive BM 1. Pain control. 12/08: Afebrile. Pulse less than 100. Tolerating full liquid diet. Positive BM. Pain is controlled. 12/09: Currently Tmax 99.3. Elevated WBC again today. Tachycardic with movement. Pleasantly confused but redirectable. CT brain pending. 12/10: Afebrile. Slightly downtrending WBC count. Agitated overnight. CT brain no acute findings. Ammonia level slightly elevated at 43. Less tachycardic on scheduled metoprolol. 12/11: Afebrile. Tolerating oral diet. Biliary drain with 825 output overnight. ANI with minimal output 25 cc.. Requesting glass of water 12/12: Tmax 99.3. Currently 99.1. 6. A biliary drain overnight. CT revealed pancreatitis likely from biliary drain. No other focal evidence of discrete infection identified. 12/22: WBC again 60, worsening renal function, borderline hypotension, transferred back to ICU 12/23: In obvious respiratory distress, tachypneic using accessory muscles bilateral wheezes despite breathing treatments. Worsening renal function creatinine 1.[address] of the abdomen and pelvis from yesterday shows worsening pancreatitis, pelvic free fluid, but no evidence of necrotizing pancreatitis. I discussed with the patient and , will proceed with endotracheal intubation and central line placement. WBC remains elevated at 55K with left shift 12/24: Critically ill remains intubated off pressors. WBC count improved from 55 ,[address] CT of this abdomen pelvis done yesterday shows worsening hemorrhagic pancreatitis and intraperitoneal blood. GI and general surgery following not a surgical candidate. Dr. Fox discussed with Dr. Celeste. Get bleeding scan and also possible pull back the biliary catheter (to avoid obstruction of pancreatic duct) 12/25: Remains intubated, critical but stable. EBC31 to 25, creat improved to 1.2 from 1.5 UO 1.1L..Bb remains elevated, but trending down, 9.3 today. Had diarrhea overnight, C. difficile requested. At the bedside updated. 12/26: no meaningful improvements. severe grimacing to even light abdominal pressure despite fentanyl at 200mcg/hr. c. diff negative. overall had long discussion with over his care. Risk/benefit of repeat liver biopsy is strongly in favor of conservative measures and not pursuing second biopsy. 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 Regardless, hemorrhagic pancreatitis with associated shock and recurrent respiratory failure in this 82yM carries with it a high morbidity and mortality, and given all of his acute medical issues, he is unlikely to survive this hospitalization. 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 The asks if I would relay this information at the family meeting tomorrow with his children, and I will be happy to do this. Objective Vital Signs Date Time Temp Pulse Resp B/P (MAP) Pulse Ox O2 Delivery O2 Flow Rate FiO2 12/26/17 15:24 98 40 12/26/17 14:00 94 12/26/17 12:00 98.6 8 154/69 (97) 12/23/17 19:00 Mechanical Ventilator 12/23/17 10:00 6.00 Intake and Output 12/26/17 12/26/17 12/27/17 08:00 16:00 00:00 Intake Total 3755 ml 809 ml Output Total 625 ml Balance 3130 ml 809 ml Result Diagram: 12/26/17 0446 12/26/17 0446 Imaging Last Impressions Abdomen/Pelvis CT 12/11/17 0000 Signed Impressions: Service Date/Time: December 23:42 - CONCLUSION: 1. There has been interval development of diffuse pancreatitis. There is diffuse inflammatory changes surrounding the pancreas. 2. The previously noted fluid adjacent to the liver has resolved. 3. There is an internal/external biliary drainage catheter in place which appears to be in good position and unchanged in position compared to the prior study. 4. There is a small amount of free fluid deep in the pelvis. 5. Small bilateral pleural effusions. Nathen Ruano MD Head CT 12/09/17 0000 Signed Impressions: Service Date/Time: Saturday, December 09, 2017 20:02 - CONCLUSION: Negative noncontrast head CT. Landry Ryan MD Chest X-Ray 12/07/17 0600 Signed Impressions: Service Date/Time: Thursday, December 07, 2017 04:09 - CONCLUSION: No significant change. Persistent left pleural effusion and left lower lobe atelectasis versus consolidation. Jerry Laureano MD Abdomen X-Ray 12/03/17 1808 Signed Impressions: Service Date/Time: Sunday, December 03, 2017 18:15 - CONCLUSION: Nonspecific abdomen. Luz Jean MD Bile Duct Drainage 12/03/17 0000 Signed Impressions: Service Date/Time: Sunday, December 03, 2017 14:10 - CONCLUSION: Uncomplicated biliary stent placement as above. Bj Hurtado MD Cholangiopancreatography MRI 12/02/17 0000 Signed Impressions: Service Date/Time: Saturday, December 02, 2017 08:17 - CONCLUSION: 1. Significant dilatation of the intrahepatic ducts ending at the confluence and possibility of stricture at this site or a Klatskin's tumor which is not visualized should be entertained. 2. Wedge-shaped focal fat right hepatic lobe. Luz Jean MD Abdomen Ultrasound 12/01/17 0000 Signed Impressions: Service Date/Time: Friday, December 01, 2017 11:49 - CONCLUSION: 1. Intrahepatic biliary duct dilatation better seen on the CT examination. A lesion at the biliary duct confluence/common hepatic duct region still needs to be suspected. An ERCP or MRCP could be used to further evaluate this region. 2. Suspected area of focal hepatic steatosis at the anterior segment right lobe of the liver. 3. Gallstones Landry Zarate MD Objective Remarks GENERAL: Pale appearing male, intubated sedated. Jaundiced SKIN: Skin is jaundiced and pale HEAD: Atraumatic. Normocephalic. EYES: Pupils equal and round about 3 mm bilaterally and reactive. Pallor+ positive scleral icterus ENT: No nasal bleeding or discharge. Mucous membranes moist and pink. Oropharynx without erythema NECK: Trachea midline. CARDIOVASCULAR: Tachycardic, RR. RESPIRATORY: equal chest rise. full mechanical support. fio2 40% GASTROINTESTINAL: Biliary and peritoneal drain in place. Well healed ex lap incision. Diffuse abdominal tenderness MUSCULOSKELETAL: Extremities without deformity. NEUROLOGICAL: Intubated sedated but wakes up. does not follow commands today. w /d x 4 Date of Insertion: Dec 26, 2017 Line: Central Venous Catheter Side: Right A/P Problem List: (1) Hemorrhagic shock ICD Code: R57.8 - Other shock Status: Acute (2) BPH (benign prostatic hyperplasia) ICD Code: N40.0 - Benign prostatic hyperplasia without lower urinary tract symptoms Status: Chronic (3) Intrahepatic cholestasis ICD Code: K76.89 - Other specified diseases of liver Status: Acute (4) Respiratory failure, acute ICD Code: J96.00 - Acute respiratory failure, unspecified whether with hypoxia or hypercapnia Status: Acute (5) ANAMIKA (acute kidney injury) ICD Code: N17.9 - Acute kidney failure, unspecified Status: Acute (6) Leukocytosis ICD Code: D72.829 - Elevated white blood cell count, unspecified Status: Acute (7) Metabolic acidemia ICD Code: E87.2 - Acidosis Status: Acute (8) Current chronic use of systemic steroids ICD Code: Z79.52 - MCC (current) use of systemic steroids Status: Chronic (9) Hypothyroidism ICD Code: E03.9 - Hypothyroidism, unspecified Status: Chronic (10) Polymyalgia rheumatica ICD Code: M35.3 - Polymyalgia rheumatica Status: Chronic Assessment and Plan Assessment: 82yM with hemorrhagic pancreatitis and recurrent respiratory failure requiring intubation and mechanical ventilation x 2. persists with multiorgan failure. course has been complicated by intra-abdominal hemorrhage and shock. 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 regardless of oncologic status, patient's age and medical comorbidities along with acute clinical course would be suggestive of a terminal condition, and he is unlikely to survive this hospitalization. family continues to press for aggressive measures and he remains Full Code. He remains critically ill with multiple organs involved. NEURO/PSYCH: Severe Pain due to acute pancreatitis Versed and fentanyl for pain control and ventilator synchrony Also on hydrocodone/acetaminophen 5-10/325 one tablet every 4 hours when necessary pain CT brain 12/19 revealed no acute intracranial findings no improvements in severe pain- requires high dose fentanyl infusion. RESP: Acute hypoxic respiratory failure COPD exacerbation History of tobacco use Intubated and placed on mechanical ventilation 12/23 DuoNeb every 4 hours scheduled and when necessary Solu-Medrol 60 mg q12 IV-reduce to 40 q12, place on budesonide NEB See ID section for broad-spectrum antibiotics No vent weaning until GI workup and interventions completed, encephalopathy and hemodynamics improved CV: SIRS/Severe sepsis Lactic acidosis- improving. Prev Hemorrhagic shock-resolved Continue fluid resuscitation. Maintenance IV fluids at 100 ml per hour, change to normal saline to D5 half-normal saline Received 2 units of PRBC 12/23/17 As needed metoprolol. 2.5 mg every 6 hours as needed for heart rate greater than 120. Holding Metoprolol 25 mg by mouth every 8 hours GI: Acute hemorrhagic pancreatitis - severe, persistent. Obstructive jaundice Intrahepatic biliary obstruction status post biliary stent and drain 12/03/16 ( Dr. 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 Lipase has normalized, bilirubin trending down slowly Dr. Fox discussed with Dr. Celeste. Bleeding scan negative, IR planning to re adjust the drain today Keep NPO, NGT to IWS. Consider post pyloric feeding tomorrow prev Liver laceration with hemoperitoneum s/p OR ex lap with Dr. Montero, 12/04/17 and control of bleeding from liver capsular laceration Biliary obstruction Elevated CA 19-9 84. Biopsy was negative, may need repeat biopsy once more stable Consider ERCP/endoscopic US when more stable and pancreatitis resolves Pantoprazole 40 mg IV daily for GI prophylaxis. Bowel regimen CT abdomen/pelvis 12/12 revealed pancreatitis. Resolution of hemoperitoneum. CT 12/22 worsening pancreatitis Hepatic angio demonstrated a 1cm pseudoaneurysm arising from a distal right hepatic branch s/p embolization FEN/RENAL: Acute kidney injury-improving BPH Continue finasteride 5 mg daily Carmona to be maintained Continue IV fluids Replace electrolytes per ICU protocol ID: Severe sepsis Jabari cholangitis Staph epi UTI Severe acute pancreatitis s/p biliary stent, jabari albicans in biliary culture 12/04 Urine cultures positive for pansensitive staph epi 12/01 Cont meropenem, cont fluconazole, continue IV Flagyl ID Dr. Gill HEME: Normocytic anemia Thrombocytopenia Leukocytosis Serial CBC. Replace as clinically indicated follow trends Received 2 units of PRBC 12/24 for hemoglobin of 6.2 Bleeding probably into hemorrhagic pancreatitis does not meet transfusion triggers today. ENDO: Hypothyroidism Chronic prednisone 5 mg daily for rheumatoid arthritis Continue Synthroid Continue Solu-Medrol 40 mg IV every 12 PROPH: SCDs for DVT prophylaxis. Pantoprazole 40 mg IV ACCESS: RIJ central line placed 12/23/17 Critical Care: The total critical care time was 31 minutes. Time to perform other separately billable procedures was not included in the critical care time. Problem Qualifiers (1) Respiratory failure, acute: Qualified Codes: J96.02 - Acute respiratory failure with hypercapnia (2) Leukocytosis: Qualified Codes: D72.829 - Elevated white blood cell count, unspecified (3) Hypothyroidism: Qualified Codes: E03.9 - Hypothyroidism, unspecified Daniel Canales MD Dec 26, 2017 16:36
[2017-12-26] MEDS: FLUCONAZOLE 400 MG PREMIX BAG 200 ML IV SCH (17:31)
[2017-12-27] VITALS (37 sets, daily range): BP systolic 124–157; BP diastolic 64–100; PULSE 62–116; RESP 14–24; TEMP 99.1; O2SAT 0–100
[2017-12-27] MEDS: RESP: ALBUTEROL 2.5 MG/IPRATROPIUM 0.5 MG NEB (SCH) NEB ×3 (04:00→10:52)
[2017-12-27] MEDS: CHLORHEXIDINE GLUCONATE 2 % 1 PACK (2 CLOTHS)(taper/protocol) TOPICAL SCH (04:00)
[2017-12-27] MEDS: MEROPENEM INJ 1,000 MG in SODIUM CHLORIDE 0.9% INJ 100 ML IV SCH ×2 (05:12→13:40)
[2017-12-27] MEDS: LEVOTHYROXINE SODIUM 100 MCG TAB OG-TUBE SCH (05:12)
[2017-12-27] MEDS: fentaNYL DRIP 250 ML IV PRN (05:12)
[2017-12-27 05:38] LABS: AUTOMATED NEUTROPHIL # 16.1 TH/MM3 (1.8-7.7); BASOPHIL % 0.1 % (0.0-2.0); HEMATOCRIT 25.3 % (39.0-51.0); HEMOGLOBIN 8.4 GM/DL (13.0-17.0); LYMPH % 1.2 % (9.0-44.0); LYMPHOCYTE # 0.2 TH/MM3 (1.0-4.8); MEAN CELL VOLUME 90.9 FL (80.0-100.0); MEAN CORPUSCULAR HEMOGLOBIN 30.2 PG (27.0-34.0); MEAN CORPUSCULAR HGB CONC 33.2 % (32.0-36.0); MEAN PLATELET VOLUME 9.5 FL (7.0-11.0); MONO % 4.7 % (0.0-8.0); MONOCYTE # 0.8 TH/MM3 (0-0.9); PLATELET COUNT 117 TH/MM3 (150-450); RED BLOOD COUNT 2.78 MIL/MM3 (4.50-5.90); RED CELL DISTRIBUTION WIDTH 18.1 % (11.6-17.2); WHITE BLOOD COUNT 17.2 TH/MM3 (4.0-11.0)
[2017-12-27 05:53] LABS: INTERNATIONAL NORMALIZED RATIO 2.2 RATIO; PROTHROMBIN TIME - PATIENT 22.4 SEC (9.8-11.6)
[2017-12-27 06:01] LABS: ALBUMIN 2.5 GM/DL (3.4-5.0); ALT (GPT) 66 U/L (12-78); AST (GOT) 59 U/L (15-37); BICARBONATE 28.8 MEQ/L (21.0-32.0); BLOOD UREA NITROGEN 39 MG/DL (7-18); CALCIUM 9.9 MG/DL (8.5-10.1); CHLORIDE 113 MEQ/L (98-107); CREATININE 1.14 MG/DL (0.60-1.30); GLOMERULAR FILTRATION RATE 62 ML/MIN (>89); GLUCOSE,RANDOM 148 MG/DL (74-106); LIPASE 118 U/L (73-393); SODIUM (NA) 149 MEQ/L (136-145)
[2017-12-27 06:04] LABS: ALKALINE PHOSPHATASE 148 U/L (45-117); TOTAL BILIRUBIN ADULT 8.3 MG/DL (0.2-1.0); TOTAL PROTEIN 4.9 GM/DL (6.4-8.2)
[2017-12-27] MEDS: RESP: BUDESONIDE 0.5 MG/2 ML NEB NEB SCH (07:18)
[2017-12-27] MEDS: INSULIN ASPART SUPPLEMENTAL SCALE SQ SCH ×2 (08:00→12:00)
[2017-12-27] MEDS: CHLORHEXIDINE 0.12% (ORAL KIT) 15 ML CUP MT SCH (08:00)
--- NOTE | 2017-12-27 08:45 | MG ---
cc: GRISELDA BACH M.D. Lab No: Date: 12/26/2017 Age: Sex: M Race: An EEG was obtained on this 82-year-old patient intubated but no sedation, unresponsive. No apparent sedatives. The EEG is showing low amplitude rhythms with some delta and theta activity bilaterally. There is a lack of alpha activity. There is a lack of background reactivity. Intermittently there are mouth, hand and leg twitching movements without any association with a paroxysmal discharge. Photic stimulation disclosed no change. INTERPRETATION: Abnormal EEG because of severe generalized slowing and attenuation suggesting a severe diffuse disturbance of cerebral function. No paroxysmal discharge present. MD REGGIE Farfan/LAURIE /7:56 PM /8:28 AM
[2017-12-27] MEDS: FINASTERIDE 5 MG TAB PO SCH (09:00)
[2017-12-27] MEDS: URSODIOL 300 MG CAP PO SCH (09:21)
[2017-12-27] MEDS: LACTULOSE SYRUP 20 GM/30 ML CUP OG-TUBE SCH (09:21)
[2017-12-27] MEDS: methylPREDNISolone SOD SUCC 40 MG/1 ML VIAL IV PUSH SCH (09:21)
[2017-12-27] MEDS: PANTOPRAZOLE SODIUM 40 MG VIAL IV PUSH SCH (09:22)
[2017-12-27] MEDS: SODIUM CHLORIDE 0.9% FLUSH 10 ML FLUSH IV FLUSH SCH (09:22)
[2017-12-27] MEDS: DEXT 5%-NACL 0.45% 1000 ML INJ 1,000 ML IV SCH ×2 (10:30→11:56)
--- NOTE | 2017-12-27 10:38 | HHI.FPPN ---
Subjective Remarks Mr Rios is in critical but stable condition this morning. He continues to have involuntary jerks and is not responding to questions. I attended a family conference with [employer] Dr. Canales, the patient's and his [address] Lundberg explaining his current clinical condition and express concerns that he situation is on survivable. The family agreed that he will not want his life prolonged and decided on comfort measures and withdrawal of care. The process of withdrawal of care was explained to the family in detail and they were reassured that he will not be in pain for as long as he remains alive. (Eko,Lorin U R2) Objective Vitals Vital Signs Date Time Temp Pulse Resp B/P (MAP) Pulse Ox O2 Delivery O2 Flow Rate FiO2 12/27/17 10:21 98 40 12/27/17 09:30 91 21 124/72 (89) 96 12/27/17 09:16 81 17 143/71 (95) 100 12/27/17 09:00 78 18 151/72 (98) 98 12/27/17 08:45 83 15 150/75 (100) 97 12/27/17 08:30 82 15 136/82 (100) 99 12/27/17 08:16 80 14 155/84 (107) 99 12/27/17 08:00 76 19 150/64 (92) 100 12/27/17 07:18 99 40 12/27/17 06:00 83 12/27/17 04:01 99 40 12/27/17 04:00 40 12/27/17 04:00 85 12/27/17 04:00 99.1 85 14 157/78 (104) 99 12/27/17 02:00 82 12/27/17 00:00 40 12/27/17 00:00 102 12/27/17 00:00 99.1 102 18 149/100 (116) 95 12/26/17 23:49 99 40 12/26/17 22:00 74 12/26/17 20:00 40 12/26/17 20:00 77 12/26/17 20:00 99.3 77 14 151/70 (97) 99 12/26/17 19:40 99 40 12/26/17 18:00 74 12/26/17 16:00 98.7 68 22 117/59 (78) 99 12/26/17 16:00 40 12/26/17 16:00 68 12/26/17 15:24 98 40 12/26/17 14:53 40 12/26/17 14:00 94 12/26/17 12:00 99 12/26/17 12:00 98.6 99 8 154/69 (97) 96 12/26/17 12:00 40 12/26/17 11:43 40 12/26/17 11:42 92 40 I/O 12/26/17 12/26/17 12/26/17 12/27/17 12/27/17 12/27/17 07:00 15:00 23:00 07:00 15:00 23:00 Intake Total 3905 ml 809 ml 1141 ml 1655 ml Output Total 625 ml 650 ml 600 ml Balance 3280 ml 809 ml 491 ml 1055 ml IV Total 3905 ml 809 ml 1081 ml 1655 ml Tube Irrigant 60 ml Output Urine Total 525 ml 575 ml 525 ml Stool Total 0 ml Drainage Total 100 ml 75 ml 75 ml # Bowel Movements 1 0 (Eko,Lorin U R2) Result Diagram: 12/27/1752112/27/17521 Objective Remarks GENERAL: Ill-appearing, jaundiced, lying in bed, intubated and sedated on fentanyl, OG tube in place, on vent SKIN: No lesions. Jaundiced. Ecchymosis at LLQ below umbilicus ([place] Sign) HEAD: Normocephalic. Atraumatic EYES: Mild scleral icterus. No injection or drainage CARDIOVASCULAR: Regular rate and rhythm without murmur, gallop, or rub. RESPIRATORY: Good breath sounds, on ventilator with vent set at 14bpm/8 PEEP/40 % FiO2 GASTROINTESTINAL: Abdomen obese, tympanitic, distended, tender to palpation. BS hypoactive. No guarding. Transverse laparotomy scar over RUQ closed with steri- strips, c/d/i with no induration or fluctuance. Biliary drain in place on right lateral abdomen with small amount of green bilious drainage inside the drain bag. Rectal tube with brown stool draining EXTREMITIES: No cyanosis. SCDs in place. NEUROLOGICAL: Intubated and sedated; can follow a few simple commands. Noticed numerous myoclonic jerks on exam today Procedures 12/02/17 - MRCP 12/03/17 - Biliary drainage with percutaneous cholangiogram 12/04/17 - Exploratory laparotomy, liver laceration repair 12/14/17 - Cholangiogram 12/16/17 - Cholangiogram 12/18/17 - Cholangiogram with catheter change and biopsy of intrahepatic biliary duct at stricture and biopsy of mass 12/20/17 - Embolization of Right Hepatic Lobe under IR guidance (Lorin Pollock MD R2) Date of Insertion: Dec 26, 2017 Line: Central Venous Catheter Side: Right Location: Internal, Jugular (Lorin Pollock MD R2) A/P Assessment and Plan 82 yo male with h/o PMR, BPH, hyperlipidemia presented with RUQ pain and UTI and 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 Following IR biliary stent and drainage on 12/03, pt found to have liver laceration and hemorrhage causing hemoperitoneum. Exploratory laparotomy performed emergently on 12/04 requiring 6u PRBCs, 1u FFP and 1u Cryo with EBL 2L. Following surgery, pt was sent to ICU for management and showed improvement but still with persistently elevated WBC. He was found to have pancreatitis on CT scan but lipase and amylase were not elevated. His biliary drain was investigated on 12/16/16 due to leaking and was found to be working properly. 12/19: Given 1uPRBCs from blood loss anemia 12/17 w/Hgb 6.8 and H/H improved to 8.1/24.5. Today H/H 7.3/22.7; will do f/u H/H 1PM and will transfuse 1uPRBCs if <7.0. BP elevated to 161/93, confused overnight and incontinent of urine. Getting scheduled oxycodone q8h for pain control now and pt w/o complaint for pain. IR took biopsies of stricture and mass surrounding stricture yesterday and we are awaiting results to consider further workup. Pt appears to be improved wrt RR but still using accessory muscles of neck; is not clammy today; and is resting more comfortably. CXR shows some improvement in PNA. Continues to be afebrile and WBC reduced to 20.6 today. Vanc trough 13.7; continue Zosyn, Vanc, levaquin and diflucan; ID and GI consulted. 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 Discussed with general surgeon Winston who suspects that the fluid pooling is a small bleed from the catheter exchange. He will discuss with IR on Friday to go over all scans/ tests and come up with a plan. Also spoke with IR Dr. Leahy, who states that he would evaluate the scans and will make a decision on the next steps. 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 Pt received 1uPRBCs early this morning with follow-up H/H indicating pt is hemodynamically stable at 8.7/26.1. Morning labs indicate rising H/H at 9.0/ 27.1. Hypernatremia resolved at 142 this morning. LFTs and Tbili still trending upward, likely 2/2 blood loss--will look to trend down hopefully from here. Pt slight jaundiced as a result w/mild scleral icterus. CXR this morning showing moderate CHF progression--adding one time Lasix 20mg IV to scheduled dosage due to having received blood products, reduce cardiac afterload, and reduce WOB. We had nursing flush his biliary drain which appeared to be clogged with dark fluid ; once flushed, began draining light green bilious fluid. 12/22: Pt with increase work of breathing and wheezing, improved on reexamination after steroids and Lasix. His reports that he has been asking to go home. His nurse reports that he has been refusing some medications. Pulmonology consulted for further recommendations. 12/23: Patient lying in bed, very tender to palpation of his abdomen. Respirations appear nonlabored 12/24: Pt intubated and sedated on 200mcg/hr fentanyl and versed on vent with settings 14bpm/8 PEEP/50%FiO2. CT abdomen/pelvis shows hemorrhagic pancreatitis w/increased pancreatic density and increased fluid collection anterior to the pancreas. Also a left pleural effusion, anasarca, and splenic fluid collection. Lasix is being held. His is requesting aggressive measures. His children will arrive this weekend. Palliative Care has visited with the and is following. Pt with poor prognosis and is not a surgical candidate at this time. 12/25: Pt intubated and sedated on 150mcg/hr fentanyl on vent with settings 14bpm /8 PEEP/40%FiO2. Showing clinical improvement with WBC down to 25.9, creatinine 1.25, and total bilirubin stable at 9.3. Hemoglobin stable at 8.7. AST and ALT downtrending. Lasix is being held due to hemorrhagic pancreatitis. Switch fluids to D5 half-normal saline at 100 mL per hour. 12/26: Critical but stable condition with improving labs: WBC 19.0, PLTs 127, Cr 1.19, Tbili 8.3, ammonia 11. Slight bump up in Lipase to 110. On vent, intubated and sedated on fentanyl at 200mcg/hr. Dr Alatorre plans for CPAP trial today. Pt has no diarrhea today and C.diff testing negative. Myoclonic jerks noticed today--ordering eeg. IVF have markedly improved pancreatitis while creating permissible fluid overload. Holding Lasix and KCl due to pancreatitis for now. IR replaced the biliary drain yesterday. Pt indicates pt's children will visit this weekend and may page us to answer their questions. 12/27: Critical but stable condition: WBC 17.2, PLTs 117, Cr 1.14, Tbili 8.3, ammonia 16. Slight bump up in Lipase 118. On vent, intubated and sedated on fentanyl at 250mcg/hr. Myoclonic jerks noticed today. Family conference with Dr. Canales, agreed to comfort measures and withdrawal of care. All medications and therapies listed below will be discontinued. He will receive adequate pain, agitation, and anxiety medications to ensure his comfort. Dw Taco Landry 1. Respiratory: Respiratory failure w/hypoxia; COPD; tobacco abuse -Intubated and sedated with fentanyl 200mcg/hr -Mechanical Ventilator, VRDF, 14bpm/8PEEP/40%FiO2 -Duonebs q4h scheduled -Solumedrol 40mg IV q12h 2. ID: Severe sepsis, lactic acidosis, resolved hemorrhagic shock, jabari cholangitis, staph epidermis UTI -s/p biliary stent, jabari albicans in biliary culture 12/04 -Urine cultures positive for pansensitive staph epi 12/01 -D5 1/2NS IVF @100ml/hr -s/p 2uPRBCs in ICU on 12/21 and 12/23; hemodynamically stable w/H&H: 9.0/26.4 -WBC trending down: 19.0 today -Merropenem 1g q8h -Diflucan 400mg q24h -ID consulted (Dr Gill)--appreciate recs -C. diff negative -Hepatitis screen negative Antibiotic history: -Zosyn 3.375 g IV every 6 hours (12/01/17 -12/22/17) -Vancomycin IV (stopped 12/18/17) -Levaquin 750mg IV Daily (12/15-12/22/17) 3. CV: mild CHF -CXR w/cardiomegaly and mild CHF -Holding Lasix due to pancreatitis -Holding KCl for hypokalemia ppx on lasix -Fluids for volume repletion as above -Holding Metoprolol 25mg q8h -Metoprolol 2.5mg q6h PRN for HR >120 4. 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 Renal: ANAMIKA with Cr 1.81 on 12/23; also, BPH -Cr 1.19 today and trending to normal -IVF as above -Continue home Finasteride 5mg daily 6. 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 Pt is a poor surgical candidate. -Persistent leukocytosis to 60, now 19--2/2 infectious process as above. -Acute blood loss due to liver laceration as above on 12/03-12/04 and internal bleed 12/21/-12/23 has required 10u PRBCs, 5u FFP, 1u leuko reduced PLTs, 1u Cryoprecipitate. -Hgb 9.0 and improving since pseudoaneurysm embolization 12/20 -Bleeding scan 12/24 w/o s/s of bleeding -NPO for now; considering tube feeds 7. Endocrine: Hypothyroid; chronic prednisone use for polymyalgia rheumatica; hyperglycemia 2/2 steroid use -Hold prednisone 5mg daily -Continue solumedrol 40mg q12h -Continue home levothyroxine 100mcg daily 8. FEN/GI/PPx: Fluids: Managed by critical care, D5 1/2 normal saline at 100 mL per hour Electrolytes: Monitor and replace as needed, on ICU electrolyte placement protocol Nutrition: Nothing by mouth, consider OG feeds DVT prophylaxis: SCDs, holding pharmacologic prophylaxis due to recent pancreatitis bleed Constipation prophylaxis: Holding all anti-diarrheal medications. If more diarrhea, will check for C Diff due to long hx of abx Discussed with Dr. Landry Discharge Planning Anticipate discharge once patient is clinically stable, time frame unclear. (Lorin Pollock MD R2) Attending Attestation Patient seen and examined. Case reviewed and discussed. Agree with plan of care as discussed with me and documented in the resident note. I spoke with Dr. Canales, as well as patient's and children. Dr. Canales and Dr. Pollock met with family upon arrival of patient's children. Nursing at the bedside, patient's family has made decision for withdrawal of care as per what they believe patient would want. Energy Attorney arrived to meet with family. Appreciate assistance of [facility]. (Elena Landry MD) Problem List: (1) Pancreatitis ICD Codes: K85.90 - Acute pancreatitis without necrosis or infection, unspecified (2) Leukocytosis ICD Codes: D72.829 - Elevated white blood cell count, unspecified Status: Acute Plan: Originally considered a Leukemoid rxn with WBCs in 35-50 range; however, Heme/onc believed to be infection -WBC down to 25.9 -ID on board -Continue meropenem 1000 mg every 12 hours (12/23/17 - ) -Continue fluconazole 400 mg IV every 24 hours (12/06/17 - ) (3) Intrahepatic bile duct dilation ICD Codes: K83.8 - Other specified diseases of biliary tract (4) Anemia ICD Codes: D64.9 - Anemia, unspecified (5) Pneumonia ICD Codes: J18.9 - Pneumonia, unspecified organism Plan: (6) Abdominal pain ICD Codes: R10.9 - Unspecified abdominal pain Status: Acute Plan: (7) Liver hemorrhage ICD Codes: K76.89 - Other specified diseases of liver Status: Acute Plan: (8) Hypothyroidism ICD Codes: E03.9 - Hypothyroidism, unspecified Status: Chronic Plan: (9) Polymyalgia rheumatica ICD Codes: M35.3 - Polymyalgia rheumatica Status: Chronic (10) BPH (benign prostatic hyperplasia) ICD Codes: N40.0 - Benign prostatic hyperplasia without lower urinary tract symptoms Status: Chronic (11) FEN/PPX Plan: (Lorin Pollock MD R2) Problem Qualifiers (1) Leukocytosis: Qualified Codes: D72.829 - Elevated white blood cell count, unspecified (2) Abdominal pain: Qualified Codes: R10.11 - Right upper quadrant pain (3) Hypothyroidism: Qualified Codes: E03.9 - Hypothyroidism, unspecified Lorin Pollock MD R2 Dec 27, 2017 10:38 Elena Landry MD Dec 29, 2017 09:08
[2017-12-27] MEDS: ALBUMIN 25% INJ 50 ML IV SCH (11:56)
[2017-12-27] MEDS ORDERED: MORPHINE SULFATE 8 MG/ML INJ IV PUSH ONE (14:00)
[2017-12-27] MEDS ORDERED: MORPHINE SULFATE 4 MG/ML INJ IV PUSH PRN (14:00)
[2017-12-27] MEDS ORDERED: LORazepam 2 MG/ML VIAL IV PUSH PRN (14:00)
--- NOTE | 2017-12-27 14:09 | HHI.CCPN ---
Subjective Remarks/Hospital Course 82-year-old male with past history of BPH, hyperlipidemia, PMR who is admitted to [facility] 12/01/17 with right upper quadrant abdominal pain and jaundice. LFTs were elevated in an obstructive pattern. CT demonstrated intrahepatic biliary duct dilatation. A mass was not clearly seen. 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 He underwent percutaneous biliary stent placement and drain by interventional radiology 12/03/17 (Dr. Hurtado). He was hypotensive post procedure and this was initially managed by family protection specialist with 1.5 L fluid resuscitation and stress dose steroids, abx for possible biliary sepsis. Hypotension persisted and he was transferred to ICU with critical care medicine consult. When I went to evaluate the patient he appeared pale with cool skin concerning for hemorrhagic shock. CBC demonstrated leukocytosis 27.5 and hemoglobin was 9.4 from a baseline of 13. Place central line and art line, started neosynephrine, began transfusing blood products until appropriately stabilized for transition to CT scanner. CT scan demonstrated moderate hemoperitoneum with hemorrhage adjacent to the liver. The biliary drain was in good position. Called Dr. Montero who will take patient to OR for emergent laparotomy. agreeable to risks of surgery. Upon transition to OR he had received PRBC 7 units, 2 units FFP and 1 gram calcium chloride with 1 more unit of FFP, 1 unit platelets, 1 unit cryo ready to transfuse. 12/04/17: Status post exploratory laparotomy and control of liver laceration bleeding by Dr. montero, findinL hemoperitoneum, Capsular tear Segment of the liver. Remains on Chas-Synephrine at 50 mcg/m. Repeat lab work showed platelet count of 50 hemoglobin of 11.9. Platelet transfusion ordered. at the bedside 12/05/17: Tolerating CPAP, follows commands but tachycardic. White count increased to 52,000 biliary fluid with Jabari. I have increase Diflucan to 400 mg daily and consulted ID. Urine output minimal, no response to fluid bolus. Weight up by 10 kg, will attempt diuresis 12/06/17: Extubated yesterday. Breathing comfortably. Tachycardic up to 160s, white count remains high at 50,000, tachycardia most likely from SIRS response/ sepsis. Responded to beta thania. Urine output adequate with Lasix. 16 KG fluid up. Start scheduled Lasix 40 mg IV every 8 hours with IV albumin. Keep nothing by mouth until cleared by general surgery 12/07: Afebrile. Heart rate in the 120s. Off all vasopressors. Tolerating full liquid diet. Positive BM 1. Pain control. 12/08: Afebrile. Pulse less than 100. Tolerating full liquid diet. Positive BM. Pain is controlled. 12/09: Currently Tmax 99.3. Elevated WBC again today. Tachycardic with movement. Pleasantly confused but redirectable. CT brain pending. 12/10: Afebrile. Slightly downtrending WBC count. Agitated overnight. CT brain no acute findings. Ammonia level slightly elevated at 43. Less tachycardic on scheduled metoprolol. 12/11: Afebrile. Tolerating oral diet. Biliary drain with 825 output overnight. ANI with minimal output 25 cc.. Requesting glass of water 12/12: Tmax 99.3. Currently 99.1. 6. A biliary drain overnight. CT revealed pancreatitis likely from biliary drain. No other focal evidence of discrete infection identified. 12/22: WBC again 60, worsening renal function, borderline hypotension, transferred back to ICU 12/23: In obvious respiratory distress, tachypneic using accessory muscles bilateral wheezes despite breathing treatments. Worsening renal function creatinine 1.[address] of the abdomen and pelvis from yesterday shows worsening pancreatitis, pelvic free fluid, but no evidence of necrotizing pancreatitis. I discussed with the patient and , will proceed with endotracheal intubation and central line placement. WBC remains elevated at 55K with left shift 12/24: Critically ill remains intubated off pressors. WBC count improved from 55 ,[address] CT of this abdomen pelvis done yesterday shows worsening hemorrhagic pancreatitis and intraperitoneal blood. GI and general surgery following not a surgical candidate. Dr. Fox discussed with Dr. Celeste. Get bleeding scan and also possible pull back the biliary catheter (to avoid obstruction of pancreatic duct) 12/25: Remains intubated, critical but stable. EBC31 to 25, creat improved to 1.2 from 1.5 UO 1.1L..Bb remains elevated, but trending down, 9.3 today. Had diarrhea overnight, C. difficile requested. At the bedside updated. 12/26: no meaningful improvements. severe grimacing to even light abdominal pressure despite fentanyl at 200mcg/hr. c. diff negative. overall had long discussion with over his care. Risk/benefit of repeat liver biopsy is strongly in favor of conservative measures and not pursuing second biopsy. 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 Regardless, hemorrhagic pancreatitis with associated shock and recurrent respiratory failure in this 82yM carries with it a high morbidity and mortality, and given all of his acute medical issues, he is unlikely to survive this hospitalization. 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 The asks if I would relay this information at the family meeting tomorrow with his children, and I will be happy to do this. 12/27: lengthy conversation with full family at bedside. no improvements and worsening of mentation over last 24h. expressed my concerns that this is an unsurvivable set of clinical problems in a very critically ill patient. family agrees that he would not want this degree of suffering on prolonged life support. decision made to pursue comfort measures and palliative extubation. I agree with this. I have spoken with Dr. Landry and she agrees as well. Objective Vital Signs Date Time Temp Pulse Resp B/P (MAP) Pulse Ox O2 Delivery O2 Flow Rate FiO2 12/27/17 13:08 99 40 12/27/17 09:30 91 21 124/72 (89) 12/27/17 04:00 99.1 12/23/17 19:00 Mechanical Ventilator 12/23/17 10:00 6.00 Intake and Output 12/27/17 12/27/17 12/27/17 07:59 15:59 23:59 Intake Total 1655 ml Output Total 600 ml Balance 1055 ml Result Diagram: 12/27/17 0522 12/27/17 0522 Imaging Last Impressions Abdomen/Pelvis CT 12/11/17 0000 Signed Impressions: Service Date/Time: December 23:42 - CONCLUSION: 1. There has been interval development of diffuse pancreatitis. There is diffuse inflammatory changes surrounding the pancreas. 2. The previously noted fluid adjacent to the liver has resolved. 3. There is an internal/external biliary drainage catheter in place which appears to be in good position and unchanged in position compared to the prior study. 4. There is a small amount of free fluid deep in the pelvis. 5. Small bilateral pleural effusions. Nathen Ruano MD Head CT 12/09/17 0000 Signed Impressions: Service Date/Time: Saturday, December 09, 2017 20:02 - CONCLUSION: Negative noncontrast head CT. Landry Ryan MD Chest X-Ray 12/07/17 0600 Signed Impressions: Service Date/Time: Thursday, December 07, 2017 04:09 - CONCLUSION: No significant change. Persistent left pleural effusion and left lower lobe atelectasis versus consolidation. Jerry Laureano MD Abdomen X-Ray 12/03/17 1808 Signed Impressions: Service Date/Time: Sunday, December 03, 2017 18:15 - CONCLUSION: Nonspecific abdomen. Luz Jean MD Bile Duct Drainage 12/03/17 0000 Signed Impressions: Service Date/Time: Sunday, December 03, 2017 14:10 - CONCLUSION: Uncomplicated biliary stent placement as above. Bj Hurtado MD Cholangiopancreatography MRI 12/02/17 0000 Signed Impressions: Service Date/Time: Saturday, December 02, 2017 08:17 - CONCLUSION: 1. Significant dilatation of the intrahepatic ducts ending at the confluence and possibility of stricture at this site or a Klatskin's tumor which is not visualized should be entertained. 2. Wedge-shaped focal fat right hepatic lobe. Luz Jean MD Abdomen Ultrasound 12/01/17 0000 Signed Impressions: Service Date/Time: Friday, December 01, 2017 11:49 - CONCLUSION: 1. Intrahepatic biliary duct dilatation better seen on the CT examination. A lesion at the biliary duct confluence/common hepatic duct region still needs to be suspected. An ERCP or MRCP could be used to further evaluate this region. 2. Suspected area of focal hepatic steatosis at the anterior segment right lobe of the liver. 3. Gallstones Landry Zarate MD Objective Remarks GENERAL: Pale appearing male, intubated sedated. Jaundiced SKIN: Skin is jaundiced and pale HEAD: Atraumatic. Normocephalic. EYES: Pupils equal and round about 3 mm bilaterally and reactive. Pallor+ positive scleral icterus ENT: No nasal bleeding or discharge. Mucous membranes moist and pink. Oropharynx without erythema NECK: Trachea midline. CARDIOVASCULAR: Tachycardic, RR. RESPIRATORY: equal chest rise. full mechanical support. fio2 40% GASTROINTESTINAL: Biliary and peritoneal drain in place. Well healed ex lap incision. Diffuse abdominal tenderness MUSCULOSKELETAL: Extremities without deformity. NEUROLOGICAL: Intubated sedated but wakes up. does not follow commands today. w /d x 4 Date of Insertion: Dec 26, 2017 Line: Central Venous Catheter Side: Right Location: Internal, Jugular A/P Problem List: (1) Hemorrhagic shock ICD Code: R57.8 - Other shock Status: Acute (2) BPH (benign prostatic hyperplasia) ICD Code: N40.0 - Benign prostatic hyperplasia without lower urinary tract symptoms Status: Chronic (3) Intrahepatic cholestasis ICD Code: K76.89 - Other specified diseases of liver Status: Acute (4) Respiratory failure, acute ICD Code: J96.00 - Acute respiratory failure, unspecified whether with hypoxia or hypercapnia Status: Acute (5) ANAMIKA (acute kidney injury) ICD Code: N17.9 - Acute kidney failure, unspecified Status: Acute (6) Leukocytosis ICD Code: D72.829 - Elevated white blood cell count, unspecified Status: Acute (7) Metabolic acidemia ICD Code: E87.2 - Acidosis Status: Acute (8) Current chronic use of systemic steroids 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 persists with multiorgan failure. course has been complicated by intra-abdominal hemorrhage and shock. 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 regardless of oncologic status, patient's age and medical comorbidities along with acute clinical course would be suggestive of a terminal condition, and he is unlikely to survive this hospitalization. After long family discussion, family decides to transition to comfort measures, which I support. NEURO/PSYCH: Severe Pain due to acute pancreatitis Versed and fentanyl for pain control and ventilator synchrony will add morphine/ativan for palliative withdraw. Also on hydrocodone/acetaminophen 5-10/325 one tablet every 4 hours when necessary pain CT brain 12/19 revealed no acute intracranial findings no improvements in severe pain- requires high dose fentanyl infusion. RESP: Acute hypoxic respiratory failure COPD exacerbation History of tobacco use Intubated and placed on mechanical ventilation 12/23 DuoNeb every 4 hours scheduled and when necessary Solu-Medrol 60 mg q12 IV-reduce to 40 q12, place on budesonide NEB See ID section for broad-spectrum antibiotics CV: SIRS/Severe sepsis Lactic acidosis- improving. Prev Hemorrhagic shock-resolved Continue fluid resuscitation. Maintenance IV fluids at 100 ml per hour, change to normal saline to D5 half-normal saline Received 2 units of PRBC 12/23/17 As needed metoprolol. 2.5 mg every 6 hours as needed for heart rate greater than 120. Holding Metoprolol 25 mg by mouth every 8 hours GI: Acute hemorrhagic pancreatitis - severe, persistent. Obstructive jaundice Intrahepatic biliary obstruction status post biliary stent and drain 12/03/16 ( Dr. 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 Lipase has normalized, bilirubin trending down slowly Dr. Fox discussed with Dr. Celeste. Bleeding scan negative, IR planning to re adjust the drain today Keep NPO, NGT to IWS. Consider post pyloric feeding tomorrow prev Liver laceration with hemoperitoneum s/p OR ex lap with Dr. Montero, 12/04/17 and control of bleeding from liver capsular laceration Biliary obstruction Elevated CA 19-9 84. Biopsy was negative, may need repeat biopsy once more stable Consider ERCP/endoscopic US when more stable and pancreatitis resolves Pantoprazole 40 mg IV daily for GI prophylaxis. Bowel regimen CT abdomen/pelvis 12/12 revealed pancreatitis. Resolution of hemoperitoneum. CT 12/22 worsening pancreatitis Hepatic angio demonstrated a 1cm pseudoaneurysm arising from a distal right hepatic branch s/p embolization FEN/RENAL: Acute kidney injury-improving BPH Continue finasteride 5 mg daily Carmona to be maintained Continue IV fluids Replace electrolytes per ICU protocol ID: Severe sepsis Jabari cholangitis Staph epi UTI Severe acute pancreatitis s/p biliary stent, jabari albicans in biliary culture 12/04 Urine cultures positive for pansensitive staph epi 12/01 Cont meropenem, cont fluconazole, continue IV Flagyl ID Dr. Gill HEME: Normocytic anemia Thrombocytopenia Leukocytosis Serial CBC. Replace as clinically indicated follow trends Received 2 units of PRBC 12/24 for hemoglobin of 6.2 Bleeding probably into hemorrhagic pancreatitis does not meet transfusion triggers today. ENDO: Hypothyroidism Chronic prednisone 5 mg daily for rheumatoid arthritis Continue Synthroid Continue Solu-Medrol 40 mg IV every 12 PROPH: SCDs for DVT prophylaxis. Pantoprazole 40 mg IV ACCESS: RIJ central line placed 12/23/17 Problem Qualifiers (1) Respiratory failure, acute: Qualified Codes: J96.02 - Acute respiratory failure with hypercapnia (2) Leukocytosis: Qualified Codes: D72.829 - Elevated white blood cell count, unspecified (3) Hypothyroidism: Qualified Codes: E03.9 - Hypothyroidism, unspecified Daniel Canales MD Dec 27, 2017 14:09
[2017-12-27] MEDS ORDERED: LORazepam 2 MG/ML VIAL IV PUSH ONE ×2 (14:35→15:45)
[2017-12-27] MEDS ORDERED: HYOSCYAMINE 0.5 MG/ML AMP IV PUSH ONE (14:45)
[2017-12-27] MEDS ORDERED: MORPHINE SULFATE 4 MG/ML INJ IV PUSH ONE (15:00)
--- NOTE | 2017-12-27 15:23 | HHI.GIFU ---
Subjective Remarks Remains in the intensive care unit resting in the bed, nonresponsive Hematuria noted in Carmona Current hemoglobin 8.4 No facial grimace today Objective Vitals I&O Vital Signs Date Time Temp Pulse Resp B/P (MAP) Pulse Ox O2 Delivery O2 Flow Rate FiO2 12/27/17 13:08 99 40 12/27/17 10:21 98 40 12/27/17 09:30 91 21 124/72 (89) 96 12/27/17 09:16 81 17 143/71 (95) 100 12/27/17 09:00 78 18 151/72 (98) 98 12/27/17 08:45 83 15 150/75 (100) 97 12/27/17 08:30 82 15 136/82 (100) 99 12/27/17 08:16 80 14 155/84 (107) 99 12/27/17 08:00 40 12/27/17 08:00 76 19 150/64 (92) 100 12/27/17 08:00 89 12/27/17 07:18 99 40 12/27/17 06:00 83 12/27/17 04:01 99 40 12/27/17 04:00 40 12/27/17 04:00 85 12/27/17 04:00 99.1 85 14 157/78 (104) 99 12/27/17 02:00 82 12/27/17 00:00 40 12/27/17 00:00 102 12/27/17 00:00 99.1 102 18 149/100 (116) 95 12/26/17 23:49 99 40 12/26/17 22:00 74 12/26/17 20:00 40 12/26/17 20:00 77 12/26/17 20:00 99.3 77 14 151/70 (97) 99 12/26/17 19:40 99 40 12/26/17 18:00 74 12/26/17 16:00 98.7 68 22 117/59 (78) 99 12/26/17 16:00 40 12/26/17 16:00 68 12/26/17 15:24 98 40 I/O 12/26/17 12/26/17 12/26/17 12/27/17 12/27/17 12/27/17 07:00 15:00 23:00 07:00 15:00 23:00 Intake Total 3905 ml 809 ml 1141 ml 1655 ml Output Total 625 ml 650 ml 600 ml Balance 3280 ml 809 ml 491 ml 1055 ml IV Total 3905 ml 809 ml 1081 ml 1655 ml Tube Irrigant 60 ml Output Urine Total 525 ml 575 ml 525 ml Stool Total 0 ml Drainage Total 100 ml 75 ml 75 ml # Bowel Movements 1 0 Laboratory Laboratory Tests Test 12/27/17 05:22 White Blood Count 17.2 Red Blood Count 2.78 Hemoglobin 8.4 Hematocrit 25.3 Mean Corpuscular Volume 90.9 Mean Corpuscular Hemoglobin 30.2 Mean Corpuscular Hemoglobin Concent 33.2 Red Cell Distribution Width 18.1 Platelet Count 117 Mean Platelet Volume 9.5 Neutrophils (%) (Auto) 94.0 Lymphocytes (%) (Auto) 1.2 Monocytes (%) (Auto) 4.7 Eosinophils (%) (Auto) 0.0 Basophils (%) (Auto) 0.1 Neutrophils # (Auto) 16.1 Lymphocytes # (Auto) 0.2 Monocytes # (Auto) 0.8 Eosinophils # (Auto) 0.0 Basophils # (Auto) 0.0 CBC Comment DIFF FINAL Differential Comment Prothrombin Time 22.4 Prothromb Time International Ratio 2.2 Activated Partial Thromboplast Time 31.7 Blood Urea Nitrogen 39 Creatinine 1.14 Random Glucose 148 Total Protein 4.9 Albumin 2.5 Calcium Level 9.9 Alkaline Phosphatase 148 Aspartate Amino Transf (AST/SGOT) 59 Alanine Aminotransferase (ALT/SGPT) 66 Total Bilirubin 8.3 Sodium Level 149 Potassium Level 3.8 Chloride Level 113 Carbon Dioxide Level 28.8 Anion Gap 7 Estimat Glomerular Filtration Rate 62 Ammonia 16 Lipase 118 Date/Time Source Procedure Growth Status 12/22/17 20:20 Blood Peripheral Aerobic Blood Culture - Final NO GROWTH IN 5 DAYS Complete 12/22/17 20:20 Blood Peripheral Anaerobic Blood Culture - Final NO GROWTH IN 5 DAYS Complete 12/04/17 00:42 Fluid Bile Fluid Gram Stain - Final Complete 12/04/17 00:42 Body Fluid Culture - Final Marielle Albicans Complete 12/20/17 05:13 Stool Stool Stool Occult Blood (RADHA) - Final HEMOCCULT POSITIVE Complete 12/23/17 02:54 Urine Catheterized Urine Urine Culture - Final NO GROWTH IN 48 HOURS. Complete 12/14/17 00:30 Wound Abdomen Gram Stain - Final Complete 12/14/17 00:30 Wound Abdomen Wound Culture - Final NO GROWTH IN 72 HRS.--AEROBICALLY OR ... Complete Imaging Last Impressions Cholangiogram 12/25/17 0000 Signed Impressions: Service Date/Time: December 17:44 - CONCLUSION: Successful exchange of the 10 American internal/external drain for a standard 10 American [place] loop drainage catheter is now positioned above the sphincter of Osbaldo. Andrés Celeste MD Chest X-Ray 12/24/17 0600 Signed Impressions: Service Date/Time: Sunday, December 24, 2017 03:03 - CONCLUSION: 1. ET tube tip is at the abelardo and needs to be withdrawn 2 cm. 2. Increasing bilateral parenchymal infiltrates with consolidation in the left lower lobe. Jung Cevallos MD GI Bleed Scan Nuclear Medicine 12/24/17 0000 Signed Impressions: Service Date/Time: Sunday, December 24, 2017 16:43 - CONCLUSION: 1. Negative for active GI bleeding. Ronnie Donis MD Upper Extremity Ultrasound 12/23/17 0000 Signed Impressions: Service Date/Time: Saturday, December 23, 2017 13:09 - CONCLUSION: 1. Positive for superficial thrombus in the left cephalic vein. No deep venous thrombosis. Ronnie Donis MD Abdomen/Pelvis CT 12/23/17 0000 Signed Impressions: Service Date/Time: Saturday, December 23, 2017 17:21 - CONCLUSION: 1. Slight worsening of presumed hemorrhagic pancreatitis with heterogeneous increased density in the pancreas. Measurements given above. Also increased fluid or hemorrhage anterior to the pancreas and stomach in the omental region. 2. Slight worsening of left pleural effusion. 3. Stable right pleural effusion, perisplenic fluid and stable fluid in left paracolic gutter and pelvis. 4. Mild anasarca. Ronnie Donis MD Celiac/Hepatic Arteriogram 12/20/17 0000 Signed Impressions: Service Date/Time: Wednesday, December 20, 2017 15:32 - CONCLUSION: 1. 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 Followup angiography demonstrated complete exclusion of the pseudoaneurysm and fistula with normal appearing flow within the hepatic branches. Lion Leahy MD Biopsy X-Ray 12/18/17 0000 Signed Impressions: Service Date/Time: December 14:47 - CONCLUSION: Uncomplicated fluoroscopic guided biliary forceps biopsy and internal/external drainage catheter exchange as described in detail above Landry Mitchell MD Abdomen Ultrasound 12/14/17 0000 Signed Impressions: Service Date/Time: Thursday, December 14, 2017 09:01 - CONCLUSION: Limited study due to bandages on the abdomen and bowel gas. Focal fatty infiltration right lobe of liver again seen. Gallbladder appears collapsed. Minimal ascites. Jerry Laureano MD Abdomen X-Ray 12/13/17 0000 Signed Impressions: Service Date/Time: Wednesday, December 13, 2017 18:55 - CONCLUSION: Nothing acute demonstrated. Nonobstructive bowel gas pattern and no free air. Evidence of right upper quadrant surgery and a internal/external biliary drainage catheter again noted. Landry Ryan MD Head CT 12/09/17 0000 Signed Impressions: Service Date/Time: Saturday, December 09, 2017 20:02 - CONCLUSION: Negative noncontrast head CT. Landry Ryan MD Bile Duct Drainage 12/03/17 0000 Signed Impressions: Service Date/Time: Sunday, December 03, 2017 14:10 - CONCLUSION: Uncomplicated biliary stent placement as above. Bj Hurtado MD Cholangiopancreatography MRI 12/02/17 0000 Signed Impressions: Service Date/Time: Saturday, December 02, 2017 08:17 - CONCLUSION: 1. Significant dilatation of the intrahepatic ducts ending at the confluence and possibility of stricture at this site or a Klatskin's tumor which is not visualized should be entertained. 2. Wedge-shaped focal fat right hepatic lobe. Luz Jean MD Physical Exam HEENT: Normocephalic; atraumatic, eyes icteric, intubated, facial bloating CHEST: Diminished sounds and rhonchi CARDIAC: RRR ABDOMEN: distended, taut, tympanic, soft bowel sounds, rectal Carmona removed EXTREMITIES: No clubbing, cyanosis, BLE edema SKIN: + jaundice. MEAL COOK: Ventilator with some sedation Assessment and Plan Plan - peritoneal bleeding - hemoglobin stable at 8.4. Not a candidate for any surgery - Anemia - continues, hematuria noted today and Carmona catheter - Continues with ventilator management, no family present today - Klatskins tumor, jaundice, patient still very critically ill Goals have changed to no code DO NOT RESUSCITATE, Dr. Lockett discussed current serious patient condition and possible cancer and malignancy, there is probably no aggressive care due to his age and current illness that could be done at this time. Children were supposed to come in today. was going to spend some time talking to them, but not here now biliary tube right upper quadrant draining Plan: - Monitor labs hemoglobin, - Transfuse as needed - No GI procedures planned for now - continue supportive care This patient was seen by myself and Dr. Saunders, note was written on his behalf Apoorva Quevedo Dec 27, 2017 15:23
[2017-12-27] MEDS ORDERED: HYOSCYAMINE 0.5 MG/ML AMP IV PUSH PRN (15:45)
--- NOTE | 2017-12-27 18:03 | HHI.DS ---
Summary Note Date of : Dec 27, 2017 Time Of : 1647 Admission Date Dec 03, 2017 at 18:44 Admitting Diagnosis BILIARY OBSTRUCTION (MASS V STONE) Diagnosis at Time of : (1) Liver hemorrhage ICD Code: K76.89 - Other specified diseases of liver Diagnosis: Principal (2) Pancreatitis ICD Code: K85.90 - Acute pancreatitis without necrosis or infection, unspecified Diagnosis: Principal (3) Hemorrhagic shock ICD Code: R57.8 - Other shock Diagnosis: Principal (4) Respiratory failure, acute ICD Code: J96.00 - Acute respiratory failure, unspecified whether with hypoxia or hypercapnia Diagnosis: Principal Brief History 82-year-old male with past history of BPH, hyperlipidemia, PMR who is admitted to [facility] 12/01/17 with right upper quadrant abdominal pain and jaundice. LFTs were elevated in an obstructive pattern. CT demonstrated intrahepatic biliary duct dilatation. A mass was not clearly seen. 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 He underwent percutaneous biliary stent placement and drain by interventional radiology 12/03/17 (Dr. Hurtado). He was hypotensive post procedure and this was initially managed by counselor marriage and family with 1.5 L fluid resuscitation and stress dose steroids, abx for possible biliary sepsis. Hypotension persisted and he was transferred to ICU with critical care medicine consult. When I went to evaluate the patient he appeared pale with cool skin concerning for hemorrhagic shock. CBC demonstrated leukocytosis 27.5 and hemoglobin was 9.4 from a baseline of 13. Place central line and art line, started neosynephrine, began transfusing blood products until appropriately stabilized for transition to CT scanner. CT scan demonstrated moderate hemoperitoneum with hemorrhage adjacent to the liver. The biliary drain was in good position. Called Dr. Montero who will take patient to OR for emergent laparotomy. agreeable to risks of surgery. Upon transition to OR he had received PRBC 7 units, 2 units FFP and 1 gram calcium chloride with 1 more unit of FFP, 1 unit platelets, 1 unit cryo ready to transfuse. CBC/BMP: 12/27/17 0522 12/27/17 0522 Significant Findings Laboratory Tests Test 12/25/17 02:40 12/25/17 02:45 12/25/17 12:55 12/25/17 15:45 Ammonia LESS THAN 10 MCMOL/L White Blood Count 25.9 TH/MM3 (4.0-11.0) Red Blood Count 2.88 MIL/MM3 (4.50-5.90) Hemoglobin 8.7 GM/DL (13.0-17.0) 8.6 GM/DL (13.0-17.0) Hematocrit 25.6 % (39.0-51.0) 25.5 % (39.0-51.0) Platelet Count 107 TH/MM3 (150-450) Neutrophils (%) (Auto) 94.0 % (16.0-70.0) Lymphocytes (%) (Auto) 0.6 % (9.0-44.0) Neutrophils # (Auto) 24.4 TH/MM3 (1.8-7.7) Lymphocytes # (Auto) 0.2 TH/MM3 (1.0-4.8) Monocytes # (Auto) 1.4 TH/MM3 (0-0.9) Blood Urea Nitrogen 39 MG/DL (7-18) Random Glucose 146 MG/DL (74-106) Total Protein 5.5 GM/DL (6.4-8.2) Albumin 2.7 GM/DL (3.4-5.0) Alkaline Phosphatase 136 U/L (45-117) Aspartate Amino Transf (AST/SGOT) 65 U/L (15-37) Alanine Aminotransferase (ALT/SGPT) 90 U/L (12-78) Total Bilirubin 9.3 MG/DL (0.2-1.0) Sodium Level 150 MEQ/L (136-145) Potassium Level 3.4 MEQ/L (3.5-5.1) Chloride Level 112 MEQ/L (98-107) Carbon Dioxide Level 32.5 MEQ/L (21.0-32.0) Estimat Glomerular Filtration Rate 56 ML/MIN (>89) Phosphorus Level 2.1 MG/DL (2.5-4.9) Prothrombin Time 19.2 SEC (9.8-11.6) Activated Partial Thromboplast Time 31.8 SEC (24.3-30.1) Fibrinogen 429 mg/dL (227-377) Test 12/26/17 04:46 12/26/17 09:00 12/27/17 05:22 White Blood Count 19.0 TH/MM3 (4.0-11.0) 17.2 TH/MM3 (4.0-11.0) Red Blood Count 2.92 MIL/MM3 (4.50-5.90) 2.78 MIL/MM3 (4.50-5.90) Hemoglobin 9.0 GM/DL (13.0-17.0) 8.4 GM/DL (13.0-17.0) Hematocrit 26.4 % (39.0-51.0) 25.3 % (39.0-51.0) Red Cell Distribution Width 17.8 % (11.6-17.2) 18.1 % (11.6-17.2) Platelet Count 126 TH/MM3 (150-450) 117 TH/MM3 (150-450) Neutrophils (%) (Auto) 93.2 % (16.0-70.0) 94.0 % (16.0-70.0) Lymphocytes (%) (Auto) 1.1 % (9.0-44.0) 1.2 % (9.0-44.0) Neutrophils # (Auto) 17.7 TH/MM3 (1.8-7.7) 16.1 TH/MM3 (1.8-7.7) Lymphocytes # (Auto) 0.2 TH/MM3 (1.0-4.8) 0.2 TH/MM3 (1.0-4.8) Monocytes # (Auto) 1.0 TH/MM3 (0-0.9) Prothrombin Time 21.0 SEC (9.8-11.6) 22.4 SEC (9.8-11.6) Activated Partial Thromboplast Time 31.6 SEC (24.3-30.1) 31.7 SEC (24.3-30.1) Blood Urea Nitrogen 42 MG/DL (7-18) 39 MG/DL (7-18) Random Glucose 180 MG/DL (74-106) 148 MG/DL (74-106) Total Protein 5.1 GM/DL (6.4-8.2) 4.9 GM/DL (6.4-8.2) Albumin 2.4 GM/DL (3.4-5.0) 2.5 GM/DL (3.4-5.0) Alkaline Phosphatase 163 U/L (45-117) 148 U/L (45-117) Aspartate Amino Transf (AST/SGOT) 65 U/L (15-37) 59 U/L (15-37) Total Bilirubin 8.3 MG/DL (0.2-1.0) 8.3 MG/DL (0.2-1.0) Sodium Level 150 MEQ/L (136-145) 149 MEQ/L (136-145) Chloride Level 114 MEQ/L (98-107) 113 MEQ/L (98-107) Estimat Glomerular Filtration Rate 59 ML/MIN (>89) 62 ML/MIN (>89) Imaging Last Impressions Abdomen/Pelvis CT 12/11/17 0000 Signed Impressions: Service Date/Time: December 23:42 - CONCLUSION: 1. There has been interval development of diffuse pancreatitis. There is diffuse inflammatory changes surrounding the pancreas. 2. The previously noted fluid adjacent to the liver has resolved. 3. There is an internal/external biliary drainage catheter in place which appears to be in good position and unchanged in position compared to the prior study. 4. There is a small amount of free fluid deep in the pelvis. 5. Small bilateral pleural effusions. Nathen Ruano MD Head CT 12/09/17 0000 Signed Impressions: Service Date/Time: Saturday, December 09, 2017 20:02 - CONCLUSION: Negative noncontrast head CT. Landry Ryan MD Chest X-Ray 12/07/17 0600 Signed Impressions: Service Date/Time: Thursday, December 07, 2017 04:09 - CONCLUSION: No significant change. Persistent left pleural effusion and left lower lobe atelectasis versus consolidation. Jerry Laureano MD Abdomen X-Ray 12/03/17 1808 Signed Impressions: Service Date/Time: Sunday, December 03, 2017 18:15 - CONCLUSION: Nonspecific abdomen. K. Gurvinder Jean MD Bile Duct Drainage 12/03/17 0000 Signed Impressions: Service Date/Time: Sunday, December 03, 2017 14:10 - CONCLUSION: Uncomplicated biliary stent placement as above. Bj Hurtado MD Cholangiopancreatography MRI 12/02/17 0000 Signed Impressions: Service Date/Time: Saturday, December 02, 2017 08:17 - CONCLUSION: 1. Significant dilatation of the intrahepatic ducts ending at the confluence and possibility of stricture at this site or a Klatskin's tumor which is not visualized should be entertained. 2. Wedge-shaped focal fat right hepatic lobe. KLivier Jean MD Abdomen Ultrasound 12/01/17 0000 Signed Impressions: Service Date/Time: Friday, December 01, 2017 11:49 - CONCLUSION: 1. Intrahepatic biliary duct dilatation better seen on the CT examination. A lesion at the biliary duct confluence/common hepatic duct region still needs to be suspected. An ERCP or MRCP could be used to further evaluate this region. 2. Suspected area of focal hepatic steatosis at the anterior segment right lobe of the liver. 3. Gallstones Landry Zarate MD Hospital Course 12/04/17: Status post exploratory laparotomy and control of liver laceration bleeding by Dr. montero, findinL hemoperitoneum, Capsular tear Segment of the liver. Remains on Chas-Synephrine at 50 mcg/m. Repeat lab work showed platelet count of 50 hemoglobin of 11.9. Platelet transfusion ordered. at the bedside 12/05/17: Tolerating CPAP, follows commands but tachycardic. White count increased to 52,000 biliary fluid with Marielle. I have increase Diflucan to 400 mg daily and consulted ID. Urine output minimal, no response to fluid bolus. Weight up by 10 kg, will attempt diuresis 12/06/17: Extubated yesterday. Breathing comfortably. Tachycardic up to 160s, white count remains high at 50,000, tachycardia most likely from SIRS response/ sepsis. Responded to beta thania. Urine output adequate with Lasix. 16 KG fluid up. Start scheduled Lasix 40 mg IV every 8 hours with IV albumin. Keep nothing by mouth until cleared by general surgery 12/07: Afebrile. Heart rate in the 120s. Off all vasopressors. Tolerating full liquid diet. Positive BM 1. Pain control. 12/08: Afebrile. Pulse less than 100. Tolerating full liquid diet. Positive BM. Pain is controlled. 12/09: Currently Tmax 99.3. Elevated WBC again today. Tachycardic with movement. Pleasantly confused but redirectable. CT brain pending. 12/10: Afebrile. Slightly downtrending WBC count. Agitated overnight. CT brain no acute findings. Ammonia level slightly elevated at 43. Less tachycardic on scheduled metoprolol. 12/11: Afebrile. Tolerating oral diet. Biliary drain with 825 output overnight. ANI with minimal output 25 cc.. Requesting glass of water 12/12: Tmax 99.3. Currently 99.1. 6. A biliary drain overnight. CT revealed pancreatitis likely from biliary drain. No other focal evidence of discrete infection identified. 12/22: WBC again 60, worsening renal function, borderline hypotension, transferred back to ICU 12/23: In obvious respiratory distress, tachypneic using accessory muscles bilateral wheezes despite breathing treatments. Worsening renal function creatinine 1.[address] of the abdomen and pelvis from yesterday shows worsening pancreatitis, pelvic free fluid, but no evidence of necrotizing pancreatitis. I discussed with the patient and , will proceed with endotracheal intubation and central line placement. WBC remains elevated at 55K with left shift 12/24: Critically ill remains intubated off pressors. WBC count improved from 55 ,[address] of this abdomen pelvis done yesterday shows worsening hemorrhagic pancreatitis and intraperitoneal blood. GI and general surgery following not a surgical candidate. Dr. Fox discussed with Dr. Celeste. Get bleeding scan and also possible pull back the biliary catheter (to avoid obstruction of pancreatic duct) 12/25: Remains intubated, critical but stable. EBC31 to 25, creat improved to 1.2 from 1.5 UO 1.1L..Bb remains elevated, but trending down, 9.3 today. Had diarrhea overnight, C. difficile requested. At the bedside updated. 12/26: no meaningful improvements. severe grimacing to even light abdominal pressure despite fentanyl at 200mcg/hr. c. diff negative. overall had long discussion with over his care. Risk/benefit of repeat liver biopsy is strongly in favor of conservative measures and not pursuing second biopsy. 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 Regardless, hemorrhagic pancreatitis with associated shock and recurrent respiratory failure in this 82yM carries with it a high morbidity and mortality, and given all of his acute medical issues, he is unlikely to survive this hospitalization. 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 The asks if I would relay this information at the family meeting tomorrow with his children, and I will be happy to do this. 12/27: lengthy conversation with full family at bedside. no improvements and worsening of mentation over last 24h. expressed my concerns that this is an unsurvivable set of clinical problems in a very critically ill patient. family agrees that he would not want this degree of suffering on prolonged life support. decision made to pursue comfort measures and palliative extubation. I agree with this. I have spoken with Dr. Landry and she agrees as well. patient was made comfortable and was terminally extubated with family at bedside and . Daniel Canales MD Dec 27, 2017 18:03
== END 2017-12-27 16:47 | disposition expired | DRG 853 ==
LOC: NEPE 05:44 → NEDA 10:05 → NEPGCP 11:50 → OBSVTOIN 12-03 18:44 → HCIS 12-03 19:47 → N03B 12-03 21:23 → HCIS 12-12 18:44 → HIMN 12-22 18:48 → HIME 12-22 18:55
PROVIDERS: ADMIT Family Medicine; ATTEND Family Medicine
PROC: 0F793DZ Dilation of Common Bile Duct with Intraluminal Device, Percutaneous Approach (ICD-10-PCS; 2017-12-03)
PROC: BF101ZZ Fluoroscopy of Bile Ducts using Low Osmolar Contrast (ICD-10-PCS; 2017-12-03)
PROC: 0F9930Z Drainage of Common Bile Duct with Drainage Device, Percutaneous Approach (ICD-10-PCS; 2017-12-03)
PROC: 5A1955Z Respiratory Ventilation, Greater than 96 Consecutive Hours (ICD-10-PCS; 2017-12-04)
PROC: 0WCG0ZZ Extirpation of Matter from Peritoneal Cavity, Open Approach (ICD-10-PCS; 2017-12-04)
PROC: 02HV33Z Insertion of Infusion Device into Superior Vena Cava, Percutaneous Approach (ICD-10-PCS; 2017-12-04)
PROC: 04HY32Z Insertion of Monitoring Device into Lower Artery, Percutaneous Approach (ICD-10-PCS; 2017-12-04)
PROC: 0BH18EZ Insertion of Endotracheal Airway into Trachea, Via Natural or Artificial Opening Endoscopic (ICD-10-PCS; 2017-12-04)
PROC: 30233K1 Transfusion of Nonautologous Frozen Plasma into Peripheral Vein, Percutaneous Approach (ICD-10-PCS; 2017-12-04)
PROC: 30233N1 Transfusion of Nonautologous Red Blood Cells into Peripheral Vein, Percutaneous Approach (ICD-10-PCS; 2017-12-04)
PROC: 30233R1 Transfusion of Nonautologous Platelets into Peripheral Vein, Percutaneous Approach (ICD-10-PCS; 2017-12-04)
PROC: 30233M1 Transfusion of Nonautologous Plasma Cryoprecipitate into Peripheral Vein, Percutaneous Approach (ICD-10-PCS; 2017-12-04)
PROC: 0W3P0ZZ Control Bleeding in Gastrointestinal Tract, Open Approach (ICD-10-PCS; principal; 2017-12-04 04:32)
PROC: 0FB93ZX Excision of Common Bile Duct, Percutaneous Approach, Diagnostic (ICD-10-PCS; 2017-12-18)
PROC: 0F2BX0Z Change Drainage Device in Hepatobiliary Duct, External Approach (ICD-10-PCS; 2017-12-18)
PROC: 04L33DZ Occlusion of Hepatic Artery with Intraluminal Device, Percutaneous Approach (ICD-10-PCS; 2017-12-20)
PROC: B4121ZZ Fluoroscopy of Hepatic Artery using Low Osmolar Contrast (ICD-10-PCS; 2017-12-20)
PROC: 0BH17EZ Insertion of Endotracheal Airway into Trachea, Via Natural or Artificial Opening (ICD-10-PCS; 2017-12-23)
PROC: 5A1955Z Respiratory Ventilation, Greater than 96 Consecutive Hours (ICD-10-PCS; 2017-12-23)
PROC: 05HM33Z Insertion of Infusion Device into Right Internal Jugular Vein, Percutaneous Approach (ICD-10-PCS; 2017-12-23)
PROC: 0F2BX0Z Change Drainage Device in Hepatobiliary Duct, External Approach (ICD-10-PCS; 2017-12-25)
DX: A41.9 Sepsis, unspecified organism (principal); K66.1 Hemoperitoneum; J96.01 Acute respiratory failure with hypoxia; J69.0 Pneumonitis due to inhalation of food and vomit; N17.9 Acute kidney failure, unspecified; R57.1 Hypovolemic shock; R57.8 Other shock; B37.89 Other sites of candidiasis; E87.0 Hyperosmolality and hypernatremia; K83.0 Cholangitis; K83.1 Obstruction of bile duct; K85.90 Acute pancreatitis without necrosis or infection, unspecified; E87.4 Mixed disorder of acid-base balance; D62 Acute posthemorrhagic anemia; K91.840 Postprocedural hemorrhage of a digestive system organ or structure following a digestive system procedure; K91.71 Accidental puncture and laceration of a digestive system organ or structure during a digestive system procedure; N39.0 Urinary tract infection, site not specified; J44.1 Chronic obstructive pulmonary disease with (acute) exacerbation; I82.612 Acute embolism and thrombosis of superficial veins of left upper extremity; D69.6 Thrombocytopenia, unspecified; E03.9 Hypothyroidism, unspecified; E78.5 Hyperlipidemia, unspecified; M35.3 Polymyalgia rheumatica; N40.0 Benign prostatic hyperplasia without lower urinary tract symptoms; E83.39 Other disorders of phosphorus metabolism; M06.9 Rheumatoid arthritis, unspecified; R65.20 Severe sepsis without septic shock; B95.7 Other staphylococcus as the cause of diseases classified elsewhere; I72.8 Aneurysm of other specified arteries; I77.0 Arteriovenous fistula, acquired; I95.81 Postprocedural hypotension; E86.1 Hypovolemia; I50.9 Heart failure, unspecified; Z51.5 Encounter for palliative care; Z66 Do not resuscitate; K86.89 Other specified diseases of pancreas; K21.9 Gastro-esophageal reflux disease without esophagitis; L29.9 Pruritus, unspecified; E87.6 Hypokalemia; Z79.52 Long term (current) use of systemic steroids; Z87.891 Personal history of nicotine dependence
CPT/HCPCS: 31500; 36247; 36430; 36556; 36600; 37242; 47531; 47536; 47540; 47543; 70450; 71045; 71046; 74018; 74019; 74176; 74177; 74183; 75726; 75774; 76377; 76700; 76937; 78278; 80048; 80053; 80074; 80076; 80202; 81001; 82103; 82105; 82140; 82150; 82272; 82378; 82390; 82550; 82552; 82607; 82728; 82746; 82784; 82805; 82948; 83010; 83516; 83520; 83540; 83550; 83605; 83615; 83690; 83735; 84100; 84132; 84439; 84443; 84484; 85007; 85014; 85018; 85025; 85027; 85060; 85384; 85610; 85730; 86038; 86255; 86301; 86850; 86900; 86901; 86920; 86927; 86965; 87040; 87070; 87077; 87086; 87186; 87205; 87449; 87493; 87641; 88305; 88312; 88313; 93005; 93971; 94002; 94003; 94150; 94640; 94664; 94667; 94668; 95819; 96361; 96365; 96366; 96375; 96376; 99152; 99153; A9560; A9579; C1729; C1760; C1769; C1887; C1894; C9113; G0378; J0171; J0461; J1120; J1170; J1450; J1644; J1650; J1720; J1815; J1940; J1956; J1980; J2060; J2185; J2250; J2270; J2370; J2405; J2543; J2920; J2930; J3010; J3370; J3480; J7030; J7040; J7050; J7060; J7070; J7120; J7512; J7613; J7626; P9016; P9017; P9035; P9045; P9047; Q9963; Q9967